=== PATIENT | female | born 1945 | race Caucasian/White ===

== ENCOUNTER 2019-10-24 11:01 | Outpatient (CLI) | payer MEDICARE, SELFPAY ==
--- NOTE | 2019-10-24 | XR_ITS ---
WS: [id number] RIGHT HIP HISTORY: HIP PAIN ACUTE RIGHT COMPARISON: 11/04/2013 Right hip: No acute fracture or dislocation. Mild narrowing of the hip joint with sclerosis and osteo phytes along the acetabulum. Mild sclerosis along the SI joint. XR/XR hip RT 2-3V wo/w pel* [id number] IMPRESSION: 1. No hip fracture. 2. Mild RIGHT hip joint arthritis.
== END 2019-10-24 11:02 | disposition home or self-care (01) ==
LOC: RADOUTREAD 10-26 12:41
PROVIDERS: Family Provider Family Medicine; PCP Family Medicine; Visit Provider Nurse Practitioner Family
DX: Z01.89 Encounter for other specified special examinations (principal)

== ENCOUNTER 2019-12-12 11:22 | Emergency (ER) | payer MEDICARE, SELFPAY ==
[2019-12-12 11:23] VITALS: BP 105/54; PULSE 49; RESP 16; TEMP 36.6; O2SAT 92; BMI 31.1
--- NOTE | 2019-12-12 11:26 | W.ED.GENADLT ---
HPI - General Adult General: Chief complaint: Chest Pain Stated complaint: CHEST PAIN Time Seen by Provider: 12/12/19 11:25 History of Present Illness: HPI narrative: 74-year-old female who presents to the emergency room with complaint of left hand. Has recently started on a new antidepressant medication which is in the case of his starting medication with some discomfort. Initially beginning she will came in with the next day had an episode has not had any since then. She denies nausea vomiting or diaphoresis associated with this. Onset (ago): day(s) (1) Location: chest Radiation: non-radiation Severity: mild Pain Consistency: intermittent Relieving factors: none Exacerbating factors: eating Associated symptoms: Reports chest pain; Deny dyspnea, malaise, nausea, rash or vomiting Review of Systems Const: Denies: fever, chills, body aches, change in appetite, fatigue or malaise ENMT: Denies: throat pain, ear pain, nasal discharge or nasal congestion Card: Reports: chest pain; Denies: edema, shortness of breath on exertion or shortness of breath when lying down Resp: Denies: shortness of breath, productive cough or non-productive cough GI: Denies: abdominal pain, nausea, vomiting, vomiting blood, coffee grounds in vomit, diarrhea, constipation, bloating, blood in stool or black tarry stool : Denies: flank pain, difficulty urinating, painful urination, urinary frequency or urinary urgency Skin/Breast: Denies: rash or itching [facility] PFSH: Medical History (Updated 12/12/19 @ 13:57 by Bruce Londono DO) Acute depression Alzheimer disease B12 deficiency Breast cancer CHF (congestive heart failure) COPD (chronic obstructive pulmonary disease) GERD (gastroesophageal reflux disease) HTN (hypertension) Hyperlipidemia IBS (irritable bowel syndrome) Muscle spasm Rheumatoid arthritis Seasonal allergic rhinitis Tachycardia Surgical History (Updated 12/10/19 @ 12:09 by Viri Echavarria MD) H/O neck surgery H/O shoulder surgery H/O wrist surgery H/O: knee surgery History of back surgery History of cholecystectomy History of ear surgery History of hysterectomy History of lumpectomy of right breast Social History Smoking and tobacco status: former smoker Quit status (tobacco): has quit using tobacco Year quit tobacco: 1996 - 1PPD x 40 Years Alcohol intake: never Lives independently: Yes Household members: spouse Marital status: Current occupational status: retired History of recent travel: No Current gender identity: Female Physical Exam Const: COMMON NORMALS: no apparent distress GENERAL APPEARANCE: cooperative and comfortable ORIENTATION/CONSCIOUSNESS: Yes awake, Yes oriented to person, Yes oriented to place and Yes oriented to time HENMT: COMMON NORMALS: normocephalic, head/scalp atraumatic, hearing grossly normal bilaterally, external ears normal, EAC's normal, TM's normal bilaterally, nasal mucous membranes and turbinates normal, moist oral mucous membranes and oropharynx normal HEAD & SCALP: normocephalic and atraumatic NOSE: nasal mucous membranes and turbinates normal EXTERNAL EAR: Yes external ears normal EXTERNAL AUDITORY CANAL: EAC's normal TYMPANIC MEMBRANE: TM's normal bilaterally Eye: COMMON NORMALS: PERRL, EOMs intact bilaterally, conjunctivae normal and no scleral icterus CONJUNCTIVA: Yes conjunctivae normal PUPIL: Yes PERRL Neck/C-Spine: COMMON NORMALS: full ROM, no lymphadenopathy, supple and no JVD Lymph: LYMPHATIC: no lymphadenopathy noted and no lymphedema noted Resp: COMMON NORMALS: normal respiratory effort, no retractions, no use of accessory muscles and clear to auscultation bilaterally AUSCULTATION: clear to auscultation bilaterally Cardio: COMMON NORMALS: no JVD, regular rate, regular rhythm and no murmurs RATE: regular rate RHYTHM: regular rhythm GI: COMMON NORMALS: soft to palpation and no hepatosplenomegaly AUSCULTATION: Yes normoactive bowel sounds PALPATION: Yes soft, No tender, No guarding and Yes no hepatosplenomegaly Extremity: COMMON NORMALS: normal to inspection, normal capillary refill, no clubbing, cyanosis or edema, no calf tenderness and no pedal edema Neuro: SENSORIUM/ORIENTATION: Yes oriented to person, Yes oriented to place and Yes oriented to time Skin: COMMON NORMALS: no rashes or lesions noted GENERAL SKIN EXAM: no rashes or lesions noted Course Vital Signs: Vital signs: Vital Signs Temperature 97.9 F 12/12/19 11:23 Pulse Rate 56 L 12/12/19 14:32 Respiratory Rate 16 12/12/19 14:32 Blood Pressure 143/64 12/12/19 14:32 Pulse Oximetry 96 12/12/19 14:32 MDM - General Adult MDM Narrative: Medical decision making narrative: Enzyme testing negative x2. Will discharge patient home with stopping the Trelegy. We will set her up for an outpatient stress test. Start aspirin 81 mg daily if has recurrence of symptoms recheck. Lab Data: Labs: Lab Results 12/12/19 12/12/19 12/12/19 Range/Units 10:45 10:45 10:45 WBC 5.5 (4.0-10.0) 10^3/ uL RBC 4.03 L (4.1-5.3) 10^6/u L Hgb 11.6 (11.5-15.3) g/dL Hct 39.1 (37.0-47.0) % MCV 97.0 (81-99) fL MCH 28.8 (28.0-34.0) pg MCHC 29.7 L (30.0-36.0) g/dL RDW 13.0 (12.1-15.1) % Plt Count 203 (130-400) 10^3/c mm MPV 9.6 (7.4-10.4) fL Neut % (Auto) 63.2 % Lymph % (Auto) 14.4 % [place] % (Auto) 15.0 % Eos % (Auto) 5.5 % Baso % (Auto) 1.5 % Neut # (Auto) 3.5 (1.8-7.7) 10^3/u L Lymph # (Auto) 0.8 (0.8-4.8) 10^3/u L [place] # (Auto) 0.8 (0.2-0.9) 10^3/u L Eos # (Auto) 0.3 (0.0-0.8) 10^3/u L Baso # (Auto) 0.1 (0.0-0.1) 10^3/u L Nucleated RBC % (a uto) 0 % Nucleated RBCs # 0.0 /100WBC Sodium 141 (136-145) mmol/L Potassium 4.8 (3.5-5.1) mmol/L Chloride 98 (98-107) mmol/L Carbon Dioxide 31 H (22-29) mmol/L Anion Gap 16.8 (5-19) BUN 34 H (8-23) mg/dL Creatinine 1.4 H (0.5-0.9) mg/dL Glucose 98 (65-115) mg/dL Calculated Osmolal ity 289 (285-295) mOsm/k g Calcium 9.7 (8.5-10.5) mg/dL Total Bilirubin 0.4 (0.15-1.2) mg/dL AST 22 (0-32) U/L ALT 10 (0-33) U/L Alkaline Phosphata se 88 (35-105) IU/L Troponin T Baselin e 26 H (0-10) ng/mL Troponin T 120 Min [place] (0-10) ng/mL Delta Troponin T (0-10) ABS# Total Protein 6.0 L (6.6-8.7) g/dL Albumin 4.1 (3.5-5.2) g/dL Globulin 1.9 (1.3-4.6) g/dL 12/12/19 Range/Units 12:42 WBC (4.0-10.0) 10^3/ uL RBC (4.1-5.3) 10^6/u L Hgb (11.5-15.3) g/dL Hct (37.0-47.0) % MCV (81-99) fL MCH (28.0-34.0) pg MCHC (30.0-36.0) g/dL RDW (12.1-15.1) % Plt Count (130-400) 10^3/c mm MPV (7.4-10.4) fL Neut % (Auto) % Lymph % (Auto) % [place] % (Auto) % Eos % (Auto) % Baso % (Auto) % Neut # (Auto) (1.8-7.7) 10^3/u L Lymph # (Auto) (0.8-4.8) 10^3/u L [place] # (Auto) (0.2-0.9) 10^3/u L Eos # (Auto) (0.0-0.8) 10^3/u L Baso # (Auto) (0.0-0.1) 10^3/u L Nucleated RBC % (a uto) % Nucleated RBCs # /100WBC Sodium (136-145) mmol/L Potassium (3.5-5.1) mmol/L Chloride (98-107) mmol/L Carbon Dioxide (22-29) mmol/L Anion Gap (5-19) BUN (8-23) mg/dL Creatinine (0.5-0.9) mg/dL Glucose (65-115) mg/dL Calculated Osmolal ity (285-295) mOsm/k g Calcium (8.5-10.5) mg/dL Total Bilirubin (0.15-1.2) mg/dL AST (0-32) U/L ALT (0-33) U/L Alkaline Phosphata se (35-105) IU/L Troponin T Baselin e (0-10) ng/mL Troponin T 120 Min [place] 24.46 H (0-10) ng/mL Delta Troponin T -1.54 L (0-10) ABS# Total Protein (6.6-8.7) g/dL Albumin (3.5-5.2) g/dL Globulin (1.3-4.6) g/dL Discharge Plan Discharge Patient Disposition: Home, Self-Care Clinical Impression: Atypical chest pain Condition: Stable Prescriptions: No Action gabapentin 300 mg capsule 300 mg PO TID RF: 0 tizanidine 4 mg capsule 4 mg PO BEDTIME PRN (Reason: Muscle Pain) RF: 0 rosuvastatin [Crestor] 10 mg tablet 10 mg PO ONCE RF: 0 donepezil 10 mg tablet 10 mg PO DAILY RF: 0 potassium chloride [Klor-Con M20] 20 mEq tablet,ER particles/crystals 20 meq PO DAILY RF: 0 citalopram 20 mg tablet 20 mg PO DAILY RF: 0 lisinopril 10 mg tablet 10 mg PO DAILY RF: 0 furosemide 40 mg tablet 40 mg PO QAM RF: 0 ferrous sulfate 324 mg (65 mg iron) tablet,delayed release (DR/EC) 324 mg PO DAILY RF: 0 pantoprazole 40 mg tablet,delayed release (DR/EC) 40 mg PO BID RF: 0 dicyclomine 20 mg tablet 20 mg PO BID RF: 0 mecobalamin (vitamin B12) 1,000 mcg tablet,chewable 1,000 mcg PO DAILY RF: 0 albuterol sulfate [ProAir HFA] 90 mcg/actuation HFA aerosol inhaler 2 puff INHALATION Q6H PRN (Reason: Shortness Of Breath) RF: 0 aspirin [Adult Aspirin Regimen] 81 mg tablet,delayed release (DR/EC) 81 mg PO DAILY RF: 0 magnesium oxide 500 mg capsule 500 mg PO DAILY RF: 0 fluticasone propionate [Flonase Allergy Relief] 50 mcg/actuation spray,suspension 1 spray INTRANASAL BID RF: 0 albuterol sulfate 2.5 mg /3 mL (0.083 %) solution for nebulization 2.5 mg INHALATION BID RF: 0 Trelegy Ellipta 100-62.5-25 mcg blister with device 1 inh INHALATION Q24H 90 Days Qty: 60 RF: 3 Discharge Orders: Discharge Order (Routine); Ordered 12/12/19 Ordered By: Bruce Londono Referrals: Zhang Gamboa MD [Primary Care Provider] - Discharge Diet: Usual diet Discharge Activity: Limit activity as instructed Activity Restrictions/Additional Instructions: Case management will call to set up a cardiac stress test Discharge Date/Time: 12/12/19 14:35 Coding Level of Care Code ED 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
--- NOTE | 2019-12-12 11:36 | XRR_ITS ---
PROCEDURE INFORMATION: Exam: XR Chest, 1 View Exam date and time: 12/12/2019 12:03 PM Age: 74 years old Clinical indication: Cough and dyspnea; Additional info: Dyspnea/cough TECHNIQUE: Imaging protocol: XR of the chest Views: 1 view. COMPARISON: SD Chest 1 [place] [id number] 07/13/2018 8:02 AM FINDINGS: Heart size within normal limits. Mild bibasilar atelectasis and/or consolidation, increased from prior study. Pulmonary vasculature within normal limits. No visible pneumothorax or pleural effusion. XR/XR chest 1V portable [id number] IMPRESSION: 1. Mild bibasilar atelectasis and/or consolidation, increased from prior study.
[2019-12-12 12:08] LABS: Basophils # 0.1 10^3/uL (0.0-0.1); Basophils % 1.5 %; Eosinophils # 0.3 10^3/uL (0.0-0.8); Eosinophils % 5.5 %; Hematocrit 39.1 % (37.0-47.0); Hemoglobin 11.6 g/dL (11.5-15.3); Lymphocytes # 0.8 10^3/uL (0.8-4.8); Lymphocytes % 14.4 %; Mean Corpuscular HGB Conc 29.7 g/dL (30.0-36.0); Mean Corpuscular Hemoglobin 28.8 pg (28.0-34.0); Mean Platelet Volume 9.6 fL (7.4-10.4); Monocytes # 0.8 10^3/uL (0.2-0.9); Neutrophils # 3.5 10^3/uL (1.8-7.7); Neutrophils % 63.2 %; Nucleated Red Blood Cells % 0 %; Platelet Count 203 10^3/cmm (130-400); Red Blood Count 4.03 10^6/uL (4.1-5.3); White Blood Count 5.5 10^3/uL (4.0-10.0)
[2019-12-12 12:28] LABS: Alanine Aminotransferase 10 U/L (0-33); Albumin Level 4.1 g/dL (3.5-5.2); Alkaline Phosphatase 88 IU/L (35-105); Anion Gap 16.8 (5-19); Aspartate Amino Transferase 22 U/L (0-32); Blood Urea Nitrogen 34 mg/dL (8-23); Calcium 9.7 mg/dL (8.5-10.5); Carbon Dioxide 31 mmol/L (22-29); Chloride 98 mmol/L (98-107); Globulin 1.9 g/dL (1.3-4.6); Glucose 98 mg/dL (65-115); Osmolality Calculated 289 mOsm/kg (285-295); Potassium 4.8 mmol/L (3.5-5.1); Sodium 141 mmol/L (136-145); Total Bilirubin 0.4 mg/dL (0.15-1.2)
[2019-12-12 12:30] LABS: Troponin(5th) Baseline 26 ng/mL (0-10)
[2019-12-12 13:10] LABS: Troponin 5 2HR 24.46 ng/mL (0-10)
[2019-12-12 13:26] LABS: Troponin 5 2HR Delta -1.54 ABS# (0-10)
[2019-12-12 14:32] VITALS: BP 143/64; PULSE 56; RESP 16; O2SAT 96
--- NOTE | 2019-12-16 15:38 | DCPLANNER ---
public relations manager had message to schedule an outpatient stress test for patient. public relations manager got order signed for outpatient stress test, faxed order to centralized scheduling. public relations manager will call for appointment information.
--- NOTE | 2019-12-17 13:52 | DCPLANNER ---
Out patient stress test for patient was cancelled.
== END 2019-12-12 14:35 | disposition home or self-care (01) ==
PROVIDERS: Emergency Provider Family Medicine; Family Provider Family Medicine; PCP Family Medicine
DX: R07.89 Other chest pain (principal); G30.9 Alzheimer's disease, unspecified; F02.80 Dementia in other diseases classified elsewhere, unspecified severity, without behavioral disturbance, psychotic disturbance, mood disturbance, and anxiety; I50.9 Heart failure, unspecified; J44.9 Chronic obstructive pulmonary disease, unspecified; K21.9 Gastro-esophageal reflux disease without esophagitis; I10 Essential (primary) hypertension; E78.5 Hyperlipidemia, unspecified; Z79.82 Long term (current) use of aspirin; Z87.891 Personal history of nicotine dependence
CPT/HCPCS: 12345; 36415; 71045; 80053; 84484; 85025; 99281; 99283

== ENCOUNTER 2019-12-28 11:50 | Outpatient (CLI) | payer MEDICARE, SELFPAY ==
[2019-12-28 12:47] LABS: Basophils # 0.1 10^3/uL (0.0-0.1); Basophils % 0.9 %; Eosinophils # 0.4 10^3/uL (0.0-0.8); Eosinophils % 5.3 %; Hematocrit 37.8 % (37.0-47.0); Hemoglobin 11.5 g/dL (11.5-15.3); Lymphocytes # 1.1 10^3/uL (0.8-4.8); Lymphocytes % 15.5 %; Mean Corpuscular HGB Conc 30.4 g/dL (30.0-36.0); Mean Corpuscular Hemoglobin 29.3 pg (28.0-34.0); Mean Corpuscular Volume 96.2 fL (81-99); Mean Platelet Volume 8.5 fL (7.4-10.4); Monocytes # 0.8 10^3/uL (0.2-0.9); Monocytes % 10.8 %; Neutrophils # 4.6 10^3/uL (1.8-7.7); Neutrophils % 66.6 %; Nucleated Red Blood Cells % 0 %; Platelet Count 369 10^3/cmm (130-400); Red Blood Count 3.93 10^6/uL (4.1-5.3); Red Cell Distribution Width 12.9 % (12.1-15.1)
[2019-12-28 13:03] LABS: Alanine Aminotransferase 8 U/L (0-33); Albumin Level 3.9 g/dL (3.5-5.2); Alkaline Phosphatase 87 IU/L (35-105); Anion Gap 14.4 (5-19); Aspartate Amino Transferase 17 U/L (0-32); Blood Urea Nitrogen 27 mg/dL (8-23); Calcium 9.7 mg/dL (8.5-10.5); Carbon Dioxide 33 mmol/L (22-29); Chloride 97 mmol/L (98-107); Globulin 3.1 g/dL (1.3-4.6); Glucose 90 mg/dL (65-115); Osmolality Calculated 287 mOsm/kg (285-295); Potassium 4.4 mmol/L (3.5-5.1); Sodium 140 mmol/L (136-145); Total Bilirubin 0.2 mg/dL (0.15-1.2)
== END 2019-12-28 11:51 | disposition home or self-care (01) ==
LOC: ONCMED 15:28
PROVIDERS: Family Provider Family Medicine; PCP Family Medicine; Visit Provider Internal Medicine Hematology & Oncology
DX: C50.411 Malignant neoplasm of upper-outer quadrant of right female breast (principal)
CPT/HCPCS: 36415; 80053; 85025

== ENCOUNTER 2019-12-31 07:01 | Outpatient (CLI) | payer MEDICARE, SELFPAY ==
--- NOTE | 2019-12-31 17:28 | ONC FU_ITS ---
Dr. Collins follow up note Patient: Maddison Jenkins Unit #: [id number]: [id number] Dicatated By: Arabella Collins M.D.Date of Visit:Dec 31, 2019 Telehealth Progress Note The patient has been informed that the visit may not be secure and acknowledged the information. I have explained the option of participating in a telephone or video visit during the [facility] public [facility] to the patient. After being given an opportunity to ask questions about and discuss this type of visit, the patient verbally consented to proceeding with the telephone/video visit. the patient understands that this service replaces an office visit and they may be billed and /or responsible for any applicable copayments History of Present Illness: Mrs. Maddison Jeknins, 74-year-old female with recent history of abnormal mammogram underwent ultrasound guided biopsy of right breast on 02/10/2019 which showed infiltrating ductal carcinoma, subsequently on 02/26/2019 she underwent excisional biopsy of right breast lesion and final pathology report showed 1 x 0.8 cm infiltrating ductal carcinoma with positive lymphovascular space invasion with clear margins and 1 sentinel lymph node was examined showed no evidence of metastatic disease, her prognostic profiling showed strongly positive ER/[place], and HER-2/raf negative by FISH. And Ki-67 was 5% e.g. favorable Oncotype DX score was 12 e.g. low, distant recurrence so this 9 year with aromatase inhibitor his about 3% and absolute chemotherapy benefits is less than 1%. So started on Arimidex 1 mg by mouth daily for 5 years on 03/03/2019 along with vitamin D/calcium supplements s/p right breast lumpectomy with sentinel lymph node, s/p postlumpectomy radiation therapy Patient denies any history of hormone supplements. Patient denies any history of bone pains, denies any history of weight loss, denies any history of nipple discharge, denies any history of nipple retraction. Evaluated via telephone, patient denies any specific complaint except pain in her right breast around scar tissue, has seen her primary care physician, for that. As per patient she used to have some discomfort, off and on, in the right breast lumpectomy scar but now is more like pain and progressive. Denies any skin changes or nipple discharge, denies any changes in postlumpectomy scar. Denies any trauma to her breast. Denies any fever or chills, denies any nausea or vomiting. Denies any new bony pains. Tolerating Arimidex/vitamin D/calcium well otherwise Medications: Aspirin 1 Tablet (of 81 mg) Oral daily, Budesonide-Formoterol Fumarate 1 puff(s) (of 160-4.5 mcg/act) Aerosol Inhalation b.i.d., Calcium + D3 1 Tablet (of 600-200 mg - Units) Oral b.i.d., Dicyclomine HCl 1 Tablet (of 20 mg) Oral four times a day, Donepezil HCl 1 Tablet (of 10 mg) Oral daily, Ferrous Sulfate 1 Tablet (of 325 (65 fe) mg) Oral daily, Gabapentin 1 Tablet (of 800 mg) Capsule Oral b.i.d., HYDROcodone-Acetaminophen 1 - 2 Tablet (of 5-325 mg) Oral q 4 hours PRN, Ipratropium [place] 1 puff(s) (of 0.02 %) Solution Inhalation four times a day PRN, Lisinopril 0.5 Tablet (of 20 mg) Oral daily, Melatonin 1 Tablet (of 3 mg) Oral at bedtime, Pantoprazole Sodium 1 Tablet (of 40 mg) Tablet, enteric coated Oral daily, Potassium Chloride ER 1 Tablet (of 20 meq) Tablet, controlled release Oral daily, Rosuvastatin Calcium 1 Tablet (of 10 mg) Oral daily, tiZANidine HCl 1 Capsule (of 4 mg) Oral four times a day PRN, traMADol HCl 1 Tablet (of 50 mg) Oral t.i.d. PRN Allergies: No Known Allergies. Review of Systems: Review of Systems is not available for this patient. Vital Signs: Vitals are not available for this patient. Performance Status: 0 - Fully active, able to carry on all predisease activities without restrictions. (ECOG) Physical Examination: Respiratory - no shortness of breath or wheezing, Cardiovascular - no palpitation or tachycardia, Breasts - complaining of right breast postlumpectomy scar discomfort/pain but no overlying skin changes or trauma to right breast, Extremities - denies any edema rash. Lab/Imaging: Most recent lab results are not available for this patient. Impression: Infiltrating ductal carcinoma of right breast status post excisional biopsy with sentinel lymph node done on 02/26/2019 next Final pathology report showed 1 x 0.8 cm mass, clear surgical margins T1b, 0/1 sentinel lymph node showed metastatic disease N0 pStage 1A ER 95%, [place] 94%, HER-2/raf negative by FISH, Ki-67 5% e.g. favorable Oncotype DX score, is 12, e.g. low risk, distance recurrence of metastases with aromatase inhibitor at 9 years is about 3% and absolute chemotherapy benefit is less than 1% , so started on Arimidex 1 mg by mouth daily for 5 years on 03/03/2019 along with vitamin D/calcium supplement s/p postlumpectomy radiation therapy to the right breast Plan: Discussed with patient via telephone regarding her labs white blood count 7 hemoglobin 11.5 hematocrit 37.8 platelets 369,000 CMP within normal limits Clinically, patient is doing well, tolerating adjuvant therapy with Arimidex/vitamin D/calcium well but with expected side effects. Now complaining of progressive discomfort/pain in right breast post lumpectomy scar but no overlying skin changes or trauma or fever or chills or nipple discharge. Patient was advised to use hot/cold compression, if no improvement, will see her back in 10 days for evaluation, may consider mammogram/sonogram. Signed By: Arabella Collins M.D. <<Signature on File>>
== END 2019-12-31 07:02 | disposition home or self-care (01) ==
LOC: ONCMED 07:02
PROVIDERS: Family Provider Family Medicine; PCP Family Medicine; Visit Provider Internal Medicine Hematology & Oncology
DX: C50.411 Malignant neoplasm of upper-outer quadrant of right female breast (principal); Z17.0 Estrogen receptor positive status [ER+]; G89.18 Other acute postprocedural pain; N64.4 Mastodynia; Z92.3 Personal history of irradiation; Z79.811 Long term (current) use of aromatase inhibitors

== ENCOUNTER 2020-01-18 10:03 | Outpatient (CLI) | payer MEDICARE, SELFPAY ==
--- NOTE | 2020-01-18 17:39 | ONC FU_ITS ---
Dr. Collins follow up note Patient: Maddison Jenkins Unit #: [id number]: [id number] Dicatated By: Arabella Collins M.D.Date of Visit:January 18, 2020 Onc Med Follow-up/Prog Note History of Present Illness: Mrs. Maddison Jenkins, 74-year-old female with recent history of abnormal mammogram underwent ultrasound guided biopsy of right breast on 02/10/2019 which showed infiltrating ductal carcinoma, subsequently on 02/26/2019 she underwent excisional biopsy of right breast lesion and final pathology report showed 1 x 0.8 cm infiltrating ductal carcinoma with positive lymphovascular space invasion with clear margins and 1 sentinel lymph node was examined showed no evidence of metastatic disease, her prognostic profiling showed strongly positive ER/[place], and HER-2/raf negative by FISH. And Ki-67 was 5% e.g. favorable Oncotype DX score was 12 e.g. low, distant recurrence so this 9 year with aromatase inhibitor his about 3% and absolute chemotherapy benefits is less than 1%. So started on Arimidex 1 mg by mouth daily for 5 years on 03/03/2019 along with vitamin D/calcium supplements s/p right breast lumpectomy with sentinel lymph node, s/p postlumpectomy radiation therapy Patient denies any history of hormone supplements. Patient denies any history of bone pains, denies any history of weight loss, denies any history of nipple discharge, denies any history of nipple retraction. Came for follow-up, complaining of progressive bilateral breast tenderness, more on the right side, since surgery. Patient denies any nipple discharge, patient denies any trauma to her breast, denies any skin rash. And also complaining of mild muscular skeleton discomfort, no night sweats. Tolerating Arimidex well otherwise Medications: Anastrozole 1 Tablet (of 1 mg) Oral daily, Aspirin 1 Tablet (of 81 mg) Oral daily, B-12 1 Tablet (of 1000 mcg) Oral daily, Budesonide-Formoterol Fumarate 1 puff(s) (of 160-4.5 mcg/act) Aerosol Inhalation b.i.d., CeleXA 1 Tablet (of 20 mg) Oral daily, Dicyclomine HCl 1 Tablet (of 20 mg) Oral four times a day, Donepezil HCl 1 Tablet (of 10 mg) Oral daily, Ferrous Sulfate 1 Tablet (of 325 (65 fe) mg) Oral daily, Furosemide 1 Tablet (of 40 mg) Oral daily, Gabapentin 1 Tablet (of 800 mg) Capsule Oral b.i.d., HYDROcodone-Acetaminophen 1 - 2 Tablet (of 5-325 mg) Oral q 4 hours PRN, Ipratropium [place] 1 puff(s) (of 0.02 %) Solution Inhalation four times a day PRN, Lisinopril 0.5 Tablet (of 20 mg) Oral daily, Magnesium 1 Tablet (of 400 mg) Oral daily, Pantoprazole Sodium 1 Tablet (of 40 mg) Tablet, enteric coated Oral daily, Potassium Chloride ER 1 Tablet (of 20 meq) Tablet, controlled release Oral daily, Rosuvastatin Calcium 1 Tablet (of 10 mg) Oral daily, tiZANidine HCl 1 Capsule (of 4 mg) Oral four times a day PRN, traMADol HCl 1 Tablet (of 50 mg) Oral t.i.d. PRN, Trelegy Ellipta Aerosol Powder, Breath Activated Inhalation Allergies: No Known Allergies. Review of Systems: Constitutional - Appetite is good and weight is stable. No fever, chills. Positive for hot flashes and night sweats. Energy level is fair, Pt fatigues easily, ENMT - Positive for sinus congestion/drainage. No mouth sores. No sore throat. Positive for difficulty swallowing, Hematologic/Lymphatic - Bruises/bleeds easily, frequent nosebleeds, Respiratory - Positive for shortness of breath. No cough. No pleuritic pain or hemoptysis, Cardiovascular - No angina pain. No palpitations, Gastrointestinal - No nausea or vomiting. No heartburn or acid reflux. Positive for diarrhea, no constipation. No blood in the stool. Positive for black stools (Pt reports she is taking iron supplements), Genitourinary (F) - No dysuria or hematuria. Positive for frequency and incontinence, Musculoskeletal - Positive for joint pain, Neurologic - Positive for headache, no dizziness. No numbness/paresthesias or other focal neurologic symptoms, Psychiatric - Positive for anxiety and insomnia. Vital Signs: Performed on January 18, 2020 10:23 Height - 63.50 in Weight - 174.4 lbs (HIGH) BSA - 1.83 sq.m BMI - 30.41 (HIGH) Temperature - 98.0 F (LOW) Pulse - 71 /min Respiration - 20 /min BP - 132/86 mm(hg) O2 Sat - 85 % (LOW) Pain - 5 Performance Status: 0 - Fully active, able to carry on all predisease activities without restrictions. (ECOG) Physical Examination: Respiratory - Lungs are clear, Cardiovascular - Regular rate and rhythm of hear, Breasts - Symmetric bilaterally without nipple discharge and no masses , but tenderness in both breasts, no overlying skin changes, status post right breast lumpectomy, Extremities - no edemaor rash. Lab/Imaging: Test performed on Dec 28, 2019 11:50 Sodium 140 mmol/L Potassium 4.4 mmol/L Chloride 97 mmol/L CO2 33 mmol/L Anion Gap 14.4 BUN 27 mg/dL Creatinine 1.1 mg/dL Cr Clearance (Est) 55.2600 mL/min Glucose 90 mg/dL Calcium 9.7 mg/dL Protein, Total 7.0 g/dL Albumin 3.9 g/dL Globulin 3.1 g/dL Bilirubin, Total 0.2 mg/dL ALT (SGPT) 8 U/L AST (SGOT) 17 U/L Alkaline Phosphatase 87 IU/L WBC 7.0 10 3/uL RBC 3.93 10 6/uL HGB 11.5 g/dL HCT 37.8 % MCV 96.2 fL MCH 29.3 pg MCHC 30.4 g/dL RDW 12.9 % Platelet Count 369 10 3/cmm MPV 8.5 fL Neutrophils 4.6 10 3/uL Lymphocytes 1.1 10 3/uL Monocytes 0.8 10 3/uL Eosinophils 0.4 10 3/uL Basophils 0.1 10 3/uL Neutrophil % 66.6 % Lymphocyte % 15.5 % Monocyte % 10.8 % Eosinophil % 5.3 % Basophils % 0.9 % Impression: Infiltrating ductal carcinoma of right breast status post excisional biopsy with sentinel lymph node done on 02/26/2019 next Final pathology report showed 1 x 0.8 cm mass, clear surgical margins T1b, 0/1 sentinel lymph node showed metastatic disease N0 pStage 1A ER 95%, [place] 94%, HER-2/raf negative by FISH, Ki-67 5% e.g. favorable Oncotype DX score, is 12, e.g. low risk, distance recurrence of metastases with aromatase inhibitor at 9 years is about 3% and absolute chemotherapy benefit is less than 1% , so started on Arimidex 1 mg by mouth daily for 5 years on 03/03/2019 along with vitamin D/calcium supplement s/p postlumpectomy radiation therapy to the right breast Plan: Discussed with patient regarding her concerns about persistent/progressive bilateral breast tenderness, etiology unclear but most likely due to hormonal withdrawals due to aromatase inhibitor. As on exam there is a no nipple discharge no overlying skin changes no discrete mass palpable. At this point we will hold her Arimidex for one month and then she will return to clinic in one month for evaluation and if there is a no improvement then will consider bilateral sonogram of breast. Signed By: Arabella Collins M.D. <<Signature on File>>
== END 2020-01-18 10:04 | disposition home or self-care (01) ==
LOC: ONCMED 10:08
PROVIDERS: PCP Family Medicine; Visit Provider Internal Medicine Hematology & Oncology
DX: C50.411 Malignant neoplasm of upper-outer quadrant of right female breast (principal); Z17.0 Estrogen receptor positive status [ER+]; N64.4 Mastodynia; Z79.811 Long term (current) use of aromatase inhibitors; Z92.3 Personal history of irradiation
CPT/HCPCS: 99214

== ENCOUNTER 2020-02-02 10:28 | Outpatient (CLI) | payer MEDICARE, SELFPAY ==
[2020-02-02 11:04] LABS: ABG PCO2 53.3 mmHg (35-45); ABG PH Result 7.39 (7.35-7.45); Arterial Blood Gas Hematocrit 34.8 % (37-47); Base Excess ABG 5.8 mmol/L (-2.0-2.0); Blood Gas Allen Test Pos; Blood Gas Sample Site Radial, right; Blood Gas Sample Type Arterial; Oxygen Device NC; PO2 ABG 77.9 mmHg (80.0-100.0)
== END 2020-02-02 10:29 | disposition home or self-care (01) ==
LOC: LAB 10:33
PROVIDERS: PCP Family Medicine; Visit Provider Internal Medicine Critical Care Medicine
DX: J96.92 Respiratory failure, unspecified with hypercapnia (principal)
CPT/HCPCS: 36600; 82803

== ENCOUNTER 2020-02-02 12:00 | Outpatient (CLI) | payer MEDICARE, SELFPAY | END 2020-02-02 12:01 | disposition home or self-care (01) | LOC: SLEEP 02-03 15:34 | PROVIDERS: PCP Family Medicine; Visit Provider Internal Medicine Critical Care Medicine | DX: J96.92 Respiratory failure, unspecified with hypercapnia (principal) | CPT/HCPCS: 36600; 82803; 94762 ==

== ENCOUNTER 2020-02-26 08:50 | Outpatient (CLI) | payer MEDICARE, SELFPAY ==
[2020-02-26 09:50] LABS: ABG PCO2 52.5 mmHg (35-45); ABG PH Result 7.42 (7.35-7.45); Arterial Blood Gas Hematocrit 39.1 % (37-47); Base Excess ABG 7.7 mmol/L (-2.0-2.0); Blood Gas Allen Test Pos; Blood Gas Sample Site Brachial, right; Blood Gas Sample Type Arterial; HCO3 ABG 33.7 mmol/L (22-26); Oxygen Device NC; PO2 ABG 52.5 mmHg (80.0-100.0)
--- NOTE | 2020-02-26 12:36 | PFTS_ITS ---
Date of Study:02/26/20 Date of Dictation: MECHANICS: Forced vital capacity (FVC) is reduced. Forced expiratory volume in one second (FEV1) is reduced. FEV1/FVC is reduced. FLOW VOLUME LOOP: Reduced flow at all lung volumes with significant scooping. LUNG VOLUMES: Total lung capacity (TLC) is normal. Residual volume (RV) is normal. DIFFUSING CAPACITY FOR CARBON MONOXIDE: Moderate reduced. INTERPRETATION: The pulmonary function tests are consistent with moderate obstruction. There is significant postbronchodilator response. Lung volumes are normal. Gas exchange (DLCO) is moderately reduced. MTDD
== END 2020-02-26 08:51 | disposition home or self-care (01) ==
LOC: RT 08:54
PROVIDERS: PCP Family Medicine; Visit Provider Internal Medicine Critical Care Medicine
DX: J96.92 Respiratory failure, unspecified with hypercapnia (principal)
CPT/HCPCS: 36600; 82803; 94060; 94726; 94729; J7611

== ENCOUNTER 2020-03-21 06:52 | Outpatient (CLI) | payer MEDICARE, SELFPAY ==
--- NOTE | 2020-03-21 07:04 | ECG_ITS ---
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 Interpretive Statements NAME OF STUDY: LEXISCAN SESTAMIBI STRESS TEST INDICATION: Chest Pain, LEXISCAN STRESS TEST ORDERING PHYSICIAN: Caden CLINICAL INFORMATION: Chest pain INTERPRETATION: 1. The patient was brought to the laboratory where Lexiscan was infused over 20 seconds. The resting blood pressure was 131/61. Maximum blood pressure was 137/50. The resting heart rate was 52 beats per minute. The maximum heart rate is 80 beats per minute. 2. The baseline electrocardiogram reveals normal sinus rhythm and is a normal tracing 3. With Lexiscan infusion, there were no ST segment changes to suggest ischemia. 4. The patient experienced no symptoms or arrhythmias during the examination. CONCLUSION: 1. Unremarkable Lexiscan infusion. 2. Nuclear imaging to follow. Electronically Signed On 03-21-2020 17:46:34 CDT by Angel Negrete M.D. [id number]
--- NOTE | 2020-03-21 07:05 | NMCV_ITS ---
NM humera perf SPECT r/s* [id number] Maddison Jenkins Age: 74 Gender: F : 1945 Exam Date: 03/21/2020 08:09 Ordering Phys: Viri Echavarria MD Technologist: LES Saavedra Exam Location: [facility] Indications: Chest pain STRESS TEST Please see separate stress test report in [facility] for full findings IMAGE PROTOCOL Rest/Stress 1 Lexiscan Day Radiopharmaceutical Dose (mCi) Administration Site Administered by Rest: Tc-99m 10.6 IV LES Saavedra Sestamibi Stress:Tc-99m 32.3 IV LES Saavedra Sestamibi Rest: 21-Mar-2020 60 Discovery 630 Stress: 21-Mar-2020 45 Discovery 630 0.4mg Lexiscan. Supine position only as patient was unable to lay prone. SPECT RESULTS Technical Quality: Good Raw Data Analysis: Normal Image Corrections: No attenuation or motion correction applied Summed Stress Score: 4 Summed Rest Score: 13 Summed Difference Score: 0 PERFUSION FINDINGS Patchy areas of decreased tracer uptake were noted at the anterior wall, lateral wall and apical regions. No significant reversibility was noted in these regions. FUNCTIONAL RESULTS (calculated via Gated SPECT) Stress Image LV EF (%): 71 Stress EDV (mL):89 TID: 0.97 Stress ESV (mL):26 FUNCTIONAL FINDINGS: Segmental wall motion analysis revealing no gross wall motion normalities. IMPRESSIONS 1. Myocardial perfusion imaging revealing patchy areas of persistent decreased tracer uptake in the apical anterior, lateral and LV apex, suggestive of myocardial scarring versus attenuation artifact. 2. Segmental wall motion analysis revealing no gross wall motion normalities 3. LV ejection fraction was estimated to be 71%. 4. Normal LV volume. No significant coronary ischemia, based on the above findings Dr Lacy Santos MD FACC (Electronically Signed) Final Date: 21 March 2020 11:26 S
[2020-03-21 07:22] VITALS: BMI 31.4
[2020-03-21] MEDS: regadenoson 0.4 Mg/5 ml Syringe IVP (08:52)
[2020-03-21] MEDS: ondansetron 2 mg/ML SDV 2 mL 4 MG IVP (09:02)
[2020-03-21 09:12] VITALS: BP 132/53; PULSE 64
== END 2020-03-21 06:53 | disposition home or self-care (01) ==
PROVIDERS: PCP Family Medicine; Visit Provider Internal Medicine Critical Care Medicine
DX: R07.9 Chest pain, unspecified (principal)
CPT/HCPCS: 78452; 93017; 96374; 96375; A9500; J2405; J2785

== ENCOUNTER 2020-03-25 08:16 | Outpatient (CLI) | payer MEDICARE, SELFPAY ==
--- NOTE | 2020-03-25 08:45 | USCV_ITS ---
Maddison Jenkisn Age: 74 Gender: F : 1945 Exam Date: 03/25/2020 08:37 Ordering Phys: Viri Echavarria MD Technologist: Sixto Moscoso [place] [facility] [place]: chest pain BP: / HR: 56 Rhythm: Sinus Technical Quality: Good MEASUREMENTS (Male / Female) Normal Values 2D ECHO LV Diastolic Diameter PLAX 4.8 cm 4.2 - 5.9 / 3.9 - 5.3 cm LV Systolic Diameter PLAX 3.5 cm IVS Diastolic Thickness 1.1 cm 0.6 - 1.0 / 0.6 - 0.9 cm IVS Systolic Thickness 1.3 cm LVPW Diastolic Thickness 1.2 cm 0.6 - 1.0 / 0.6 - 0.9 cm LVPW Systolic Thickness 1.4 cm LVOT Diameter 2.2 cm LV Ejection Fraction 2D Teich 52.0 % LV Ejection Fraction MOD 2C 55.8 % LV Ejection Fraction 2C AL 57.3 % LA Diameter 4.2 cm LA Width 3.9 cm LA Height 5.3 cm RA Width 3.5 cm RA Height 4.5 cm M-MODE LV Diastolic Diameter MM 5.6 cm 4.2 - 5.9 / 3.9 - 5.3 cm LV Systolic Diameter MM 3.8 cm LV Ejection Fraction MM Teich 59.4 % IVS Diastolic Thickness MM 1.1 cm 0.6 - 1.0 / 0.6 - 0.9 cm IVS Systolic Thickness MM 1.8 cm LVPW Diastolic Thickness MM 1.4 cm 0.6 - 1.0 / 0.6 - 0.9 cm LVPW Systolic Thickness MM 1.5 cm RV Diastolic Diameter MM 1.5 cm Aortic Annulus Diameter 3.0 cm LA Ao Ratio MM 1.4 MV E Point Septal Separation 1.7 cm DOPPLER AV Peak Velocity 137.0 cm/s LVOT Peak Velocity 104.0 cm/s AV Area Cont Eq vti 3.2 cm squared AV Area Cont Eq pk 2.9 cm squared MV Area PHT 5.0 cm squared Mitral E to A Ratio 1.0 MV E' Velocity 8.0 cm/s Mitral E to MV E' Ratio 10.3 Mitral E to LV E' Lateral Ratio 11.1 Mitral E to LV E' Septal Ratio 9.8 TR Peak Velocity 133.0 cm/s TR Peak Gradient 7.1 mmHg PV Peak Velocity 113.0 cm/s FINDINGS Left Ventricle Normal left ventricular size, systolic function and wall thickness, with no regional wall motion abnormalities. Left ventricular ejection fraction is estimated at 65%. Normal diastolic function. Right Ventricle Normal right ventricular size and systolic function. Right Atrium Normal right atrial size. Left Atrium Normal left atrial size. Mitral Valve Structurally normal mitral valve. Trace mitral valve regurgitation. Aortic Valve Structurally normal trileaflet aortic valve. No aortic valve stenosis. Trace aortic valve regurgitation. Tricuspid Valve Structurally normal tricuspid valve. Trace tricuspid valve regurgitation. Pulmonic Valve Structurally normal pulmonic valve. No pulmonary valve stenosis. Trace pulmonary valve regurgitation. Pericardium No pericardial effusion. Aorta Normal size aortic root and proximal ascending aorta. CONCLUSIONS 1. Normal left ventricular size, systolic function and wall thickness, with no regional wall motion abnormalities. Left ventricular ejection fraction is estimated at 65%. Normal diastolic function. 2. Normal right ventricular size and systolic function. 3. No significant valvular abnormality. 4. No prior similar studies to compare. Isaura Woodard MD (Electronically Signed) Final Date: 25 March 2020 14:34 S
== END 2020-03-25 08:17 | disposition home or self-care (01) ==
LOC: US 08:18
PROVIDERS: PCP Family Medicine; Visit Provider Internal Medicine Critical Care Medicine
DX: R06.02 Shortness of breath (principal); R07.9 Chest pain, unspecified
CPT/HCPCS: 93306

== ENCOUNTER → 2020-04-19 10:21 | Outpatient (BNVA) | payer MEDICARE, SELFPAY | PROVIDERS: PCP Family Medicine; Visit Provider Internal Medicine | DX: R06.02 Shortness of breath (principal); Z20.828 Contact with and (suspected) exposure to other viral communicable diseases | CPT/HCPCS: 87635 ==

== ENCOUNTER 2020-04-20 09:11 | Outpatient (CLI) | payer MEDICARE, SELFPAY ==
--- NOTE | 2020-04-20 09:30 | USCV_ITS ---
Maddison Jenkins Age: 74 Gender: F : 1945 Exam Date: 04/20/2020 09:54 Ordering Phys: Chelsey Lomeli MD ([email or web address]) Technologist: Aleks Jade Exam Location: [facility] [place] Indication: PAIN PROCEDURES: Venous duplex imaging was performed in bilateral lower extremities. The following venous structures were evaluated: common femoral vein, profunda vein, proximal portion of the greater saphenous vein, superficial femoral vein, and the popliteal vein. In addition, the posterior tibial and peroneal trunk were evaluated. Serial compression, augmentation maneuvers, and spectral Doppler flow evaluation were performed. FINDINGS: Normal 2-D Doppler and augmentation and compressibility throughout the lower extremity venous structures. Additional imaging through the proximal calf veins also reveals no thrombus. Limited evaluation of the greater saphenous vein is patent with no thrombus. CONCLUSIONS No DVT bilateral lower extremities. Dr. Margoth Esquivel DO (Electronically Signed) Final Date: 20 April 2020 11:00 S
== END 2020-04-20 09:12 | disposition home or self-care (01) ==
LOC: RAD 09:15
PROVIDERS: PCP Family Medicine; Visit Provider Internal Medicine Cardiovascular Disease
DX: M79.604 Pain in right leg (principal); M79.605 Pain in left leg
CPT/HCPCS: 93970

== ENCOUNTER 2020-04-21 08:56 | Day surgery (SDC) | payer MEDICARE, SELFPAY ==
[2020-04-19 15:08] LABS: Basophils # 0.1 10^3/uL (0.0-0.1); Basophils % 1.1 %; Eosinophils # 0.3 10^3/uL (0.0-0.8); Hematocrit 40.1 % (37.0-47.0); Lymphocytes # 0.9 10^3/uL (0.8-4.8); Mean Corpuscular HGB Conc 29.9 g/dL (30.0-36.0); Mean Corpuscular Hemoglobin 28.2 pg (28.0-34.0); Mean Corpuscular Volume 94.1 fL (81-99); Mean Platelet Volume 8.9 fL (7.4-10.4); Monocytes # 0.8 10^3/uL (0.2-0.9); Monocytes % 13.9 %; Neutrophils # 3.55 10^3/uL (1.8-7.7); Neutrophils % 62.6 %; Nucleated Red Blood Cells % 0 %; Platelet Count 276 10^3/cmm (130-400); Red Blood Count 4.26 10^6/uL (4.1-5.3); Red Cell Distribution Width 13.1 % (12.1-15.1); White Blood Count 5.7 10^3/uL (4.0-10.0)
[2020-04-19 15:23] LABS: Anion Gap 12.2 (5-19); Blood Urea Nitrogen 29 mg/dL (8-23); Calcium 9.1 mg/dL (8.5-10.5); Carbon Dioxide 33 mmol/L (22-29); Chloride 97 mmol/L (98-107); Glucose 90 mg/dL (65-115); Osmolality Calculated 283 mOsm/kg (285-295); Potassium 4.2 mmol/L (3.5-5.1); Sodium 138 mmol/L (136-145)
[2020-04-21] VITALS (10 sets, daily range): BP systolic 113–155; BP diastolic 46–69; PULSE 54–73; RESP 13–20; TEMP 36.7; O2SAT 84–99; BMI 31.6
[2020-04-21] MEDS: diphenhydrAMINE 50 mg Capsule PO (09:08)
--- NOTE | 2020-04-21 10:00 | XACV_ITS ---
Exam Room: [facility] Ht: 157 cm Wt: 78 kg BSA: 1.88 m2 Gender: Female : 1945 Any Known Allergies: No known allergies Exam Priority: Routine Procedure(s): Procedure Description: Diagnostic procedure Procedure Description: Left Heart Catheterization Procedure Description: Left ventriculography Procedure Description: Coronary Angiography Diagnostic Findings No significant disease noted in the Left Main, LAD, Circumflex, or RCA coronary arteries. Coronary angiography shows right dominance. Conclusions No significant disease noted in the Left Main, LAD, Circumflex, or RCA coronary arteries. The apex, mid posterior, mid septum, anterolateral, mid inferior gutierres are hypokinetic. All other visualized gutierres normal. Global hypokinesis. Ejection fraction of 40%. Recommendations Continue current medical management and risk factor modification. Ventriculography Ejection Fraction: 40.0 % Pressures Phase:Rest AO : 120 mmHg / 58 mmHg ( 84 mmHg ) @ 5:13:00 AM 133 mmHg / 61 mmHg ( 93 mmHg ) @ 5:14:00 AM 164 mmHg / 66 mmHg ( 106 mmHg ) @ 5:19:00 AM 171 mmHg / 45 mmHg ( 92 mmHg ) @ 5:19:00 AM LV : 167 mmHg / -6 mmHg / @ 5:18:00 AM 165 mmHg / -6 mmHg / @ 5:19:00 AM 165 mmHg / -5 mmHg / @ 5:19:00 AM Valves Phase:DefaultPhase AV : 2.0 mmHg @ 10:28:32 AM AV Mean Gradient: 0.0 mmHg @ 10:28:32 AM 0.0 mmHg @ 10:28:32 AM Clinical Evaluation EBL: 5mL-10mL Procedural Details Procedure Consent Obtained. Pre-Procedure Time Out. Identified patient by full name and date of as verbalized by the patient/guarantor. Does the consent match the physician's order: Yes. Accurate & Complete Informed Consent: Yes. Inpatient/Outpatient History & Physical on Chart: Yes. If H&P is completed, is and addenduem needed: N/A; If yes, is the addendum complete: N/A. Visualize and Verify Site with Patient/Guarantor: N/A. Relevant Radiology Images available: Yes. Pre-op teaching completed and patient verbalized understanding. The risks, benefits, and alternatives of sedation and/or procedure were discussed by physician. The patient agrees to continue. Procedure started. PERRLA. Strong, equal hand kitchen mechanic bilaterally. Lungs clear x 5 lobes. IV Site on Arrival: 20 gauge in the left anticubital. IV Fluids: 0.9% NaCl at KVO. 0 mL infused prior to gold leaf laborer. Pre Procedural Pulses: bilateral dorsalis pedis was Doppled. Pre Procedural Pulses: bilateral posterior tibial was Doppled. Pre Procedural Pulses: bilateral radial was 3+. Oxygen started at 2liters/min via nasal canula. right radial was prepped with chloroprep then draped in the usual sterile fashion. right groin was prepped with chloroprep then draped in the usual sterile fashion. Physician notified. Current diagnosis: Chest Pain. Equipment: 5F - Radial. Cardiac Cath Pack. ACIST Manifold Kit Model BT 2000. Heparinized Saline (2 units/mL), 1000 mL bag. Physician arrived. Baseline sample Acquired. HR: 49 BPM. Physician scrubbed in. Immediate Pre-Procedure Time Out. Correct Patient: Yes; Correct Procedure: Yes; Correct Site: Yes; Correct Patient Position: Yes; Correct Supplies: Yes; Dried Flammable Prep: Yes; Blood Products Available: No;. Pt family updated. Lidocaine 1% infiltrated to the right radial. Arterial access obtained. A 5 slovenian TIG catheter in over wire. Multiple views taken of left coronary artery. Catheter redirected to the RCA. Multiple views taken of right coronary artery. Catheter out. A 5 slovenian Angled Pig catheter in over wire. EDP Sample taken: LV 167/-7,29; HR: 55 BPM; SpO2: 98%. LV gram performed in NAIK @ 10 mL/second for a total of 30 mL. EDP Sample taken: LV 165/-7,29; HR: 60 BPM; SpO2: 98%. Pullback taken: LV 165/-6,29; AO 164/66(106); Mean: 0mmHg, Peak to Peak: 2mmHg, SEP: 18sec/min; HR: 60 BPM; SpO2: 97%. A TR Band was successful obtaining hemostatsis at the Right Radial artery insertion site. TR band placed. Hemostasis obtained. Post Procedure: Pulses reassessed and unchanged. PERRLA. Strong, equal hand kitchen mechanic bilaterally. No VTE prophylaxis required. Fluoro: 2:40. Contrast type used: Omnipaque 300 mgI/mL, 500 mL bottle. [id number]. Complications: none. Estimated blood loss: 5mL-10mL. Procedure completed. Medication's Wasted: Lidocaine 1% = 18 mL. Medication's Wasted: Other = versed 1 mg. Medication's Wasted: Other = fentanyl 75 mcg. Medication's Wasted: Heparin = 1000 units. Medication's Wasted: Nitro = 49.8 mg. Total IV fluids: 32.9 mL. Post-op diagnosis: nonobstructive CAD. Patient transferred by wheelchair to 1st floor. Vital chart was stopped. [facility] Clinical Fraility Score: 3: Managing Well. Supervisor Whipped Topping Indications: New Onset Angina. Chest Pain Symptom Assessment: Typical Angina Symptoms. Cardiovascular Instability: No. Site: Right Radial artery Sheath Size: 6 Fr Hemostasis Method: TR Band Hemostasis Success: Successful Procedure Medications Start: 10:09 AM Stop: 10:09 AM Medication: Nitrogylcerin Amount: 200 mcg Route: I.A. Start: 10:12 AM Stop: 10:12 AM Medication: Heparin Amount: 5000 units Route: I.V. I, the attending physician, have reviewed and verified all procedure medications. Yes, all medications given per verbal order History/Risk Factors Hypertension: Yes Dyslipidemia: Yes Peripheral Arterial Disease (PAD): No Myocardial Infarction (PR): No Obesity: No Renal Disease: No Tobacco Use: Former Prior Interventions PCI: No CABG: No Valve Surgery: No Report Signatures Finalized by:Chelsey Lomeli MD on 04/30/2020 5:10:50 PM
--- NOTE | 2020-04-21 10:29 | W.PM.OPSUD ---
Surgery/Procedure H&P Update DATE OF PROCEDURE: April 21, 2020 DATE H&P PERFORMED: 03/31/20 H&P UPDATE INFORMATION: I have reviewed H&P completed within last 30 days, I have examined patient prior to procedure, No changes to prior documentation and Changes to prior documentation as noted here PREOP DIAGNOSIS: Recurrent chest pain abnormal stress test, hypertrophic cardiomyopathy PLANNED PROCEDURE: Operation Date: 04/21/20 10:00 Proposed Procedures p Cardiac Catheterization left(Left) - Chelsey Lomeli MD PATIENT REASSESSED PRIOR TO SEDATION, WITH NO CHANGE NOTED: Yes PHYSICAL EXAM: alert, oriented x 3, clear to auscultation bilaterally and regular rate & rhythm AIRWAY EVAL/ANESTHESIA PLAN: normal airway, see other exam findings, ASA II, Risks, benefits & alternatives of sedation and/or procedure discussed and Patient agrees to continue as planned
--- NOTE | 2020-04-21 10:54 | PC.NURSE ---
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
--- NOTE | 2020-04-21 13:23 | PC.NURSE ---
Tr band removed from right wrist per protocol no hematoma noted patient tolerated well. vital signs stable throughout.
--- NOTE | 2020-04-21 13:57 | PC.NURSE ---
patient discharged home at this time discharge instructions given and explained as well as post Angio home care instructions. patient verbalized understanding. IV discontinued cath intact min bleeding noted bandage applied. patient assisted to wheel chair and accompanied to private vehicle by staff patient alert oriented and stable condition all belongings and discharge instructions in hand.
== END 2020-04-21 14:00 | disposition home or self-care (01) ==
LOC: CCL 08:56 → CSU 09:11
PROVIDERS: PCP Family Medicine; Visit Provider Internal Medicine Cardiovascular Disease
DX: R94.39 Abnormal result of other cardiovascular function study (principal); R07.9 Chest pain, unspecified; I42.2 Other hypertrophic cardiomyopathy; I10 Essential (primary) hypertension; E78.5 Hyperlipidemia, unspecified; Z87.891 Personal history of nicotine dependence
CPT/HCPCS: 12345; 36415; 80048; 85025; 85610; 93452; C1769; C1887; C1894; J1644; J2250; J3010; J3490; J7030; Q0163; Q9967

== ENCOUNTER 2020-04-25 06:00 | Outpatient (RCR) | payer MEDICARE, SELFPAY | END 2020-05-02 23:59 | disposition home or self-care (01) | LOC: SOT 06:00 | PROVIDERS: PCP Family Medicine; Referring Provider Family Medicine; Visit Provider Family Medicine | DX: G35 Multiple sclerosis (principal); Z74.09 Other reduced mobility | CPT/HCPCS: 97166; 97542 ==

== ENCOUNTER 2020-05-11 07:53 | Outpatient (CLI) | payer MEDICARE, SELFPAY ==
--- NOTE | 2020-05-11 08:11 | CT_ITS ---
WS: [id number] CT LUMBAR SPINE, noncontrast. HISTORY: LOW BACK PAIN, WORSENING BONE/BLADDER INCONTINENCE TECHNIQUE: Contiguous 2.5 mm axial imaging are performed. Sagittal and coronal reformats are submitte d and reviewed. All CT scans at [facility] use at least one of these dose optimization te chniques: automated exposure control; mA and/or kV adjustment per patient size (includes targeted exa ms where dose is matched to clinical indication); or iterative reconstruction. IV contrast: None DLP: 1904.81 mGycm COMPARISON: No similar studies. Straightening of the normal lumbar lordosis. Severe osteopenia. Prior posterior lumbar fusion extends from L2 through L4. No lucency around the hardware or fractures. Extensive bone grafting along the f acet joints is diffuse. There is significant artifact from the hardware. Degenerative disc disease an d disc space narrowing. No fractures are ill-defined. L1-2: Osteophytic ridging and disc bulging. Osteophytes encroach upon the thecal sac causing mild reji tral and LEFT subarticular recess narrowing. L2-3: Large posterior laminectomy defect. No stenosis. L3-4: Large posterior laminectomy defect. No significant stenosis. L4-5: Large posterior laminectomy defect. Mild facet joint arthritis with minimal encroachment upon t he foramen with no significant stenosis. L5-S1: LEFT hemilaminectomy defect. Osteophytic ridging without a focal protrusion. There is signific ant fusion across the facet joints and posteriorly across the midline. No significant stenosis. Moderate atherosclerosis aorta with no aneurysm. Multiple calcifications in the LEFT renal pelvis wit h no obstruction. Mild narrowing of the SI joints. Osteopenia. CT/CT lumbar spine wo con* [id number] IMPRESSION: 1. Severe osteopenia. 2. Prior posterior lumbar fusion from L2 to L4 with no complications. Extensiv e fusion across the facet joints and along the prior bone grafting. 3. Large posterior laminectomy defects from L2-3 through L5-S1. 4. Mild central and LEFT subarticular recess stenosis at L1-2.
--- NOTE | 2020-05-11 08:21 | XR_ITS ---
WS: [id number] RIGHT FOOT: 3 VIEW(S) TECHNIQUE: AP, oblique and lateral. HISTORY: RIGHT FOOT PAIN COMPARISON: None available. No acute fracture or dislocation. Normal tarsal/metatarsal alignment. Minimal degenerative changes in the midfoot. Small calcaneal spur. Mild osteopenia. XR/XR foot RT min 3V* [id number] IMPRESSION: Small calcaneal spur and osteopenia.
== END 2020-05-11 07:54 | disposition home or self-care (01) ==
PROVIDERS: Family Provider Family Medicine; PCP Family Medicine; Visit Provider Family Medicine
DX: M54.5 Low back pain (principal); R32 Unspecified urinary incontinence; M85.88 Other specified disorders of bone density and structure, other site; M43.26 Fusion of spine, lumbar region; M96.1 Postlaminectomy syndrome, not elsewhere classified; M48.061 Spinal stenosis, lumbar region without neurogenic claudication; M77.31 Calcaneal spur, right foot; M85.871 Other specified disorders of bone density and structure, right ankle and foot
CPT/HCPCS: 72131; 73630

== ENCOUNTER 2020-06-03 08:45 | Inpatient (IN) | payer MEDICARE, SELFPAY ==
[2020-06-03] VITALS (12 sets, daily range): BP systolic 105–156; BP diastolic 56–97; PULSE 59–113; RESP 17–21; TEMP 36.4–36.7; O2SAT 92–100; BMI 30.2
--- NOTE | 2020-06-03 09:07 | ECG_ITS ---
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 Measurements Intervals [place] Rate: 62 P: 15 ID: [id number] QRS: 59 QRSD: 107 T: 1 QT: 427 QTc: 435 Interpretive Statements SINUS RHYTHM LOW QRS VOLTAGE IN EXTREMITY LEADS [QRS DEFLECTION < 0.5 mV IN LIMB LEADS] Compared to ECG 07/13/2018 07:53:54 Sinus bradycardia no longer present Electronically Signed On 06-03-2020 20:37:32 CDT by Chelsey Lomeli M.D. [id number]
--- NOTE | 2020-06-03 09:07 | CT_ITS ---
WS: [id number] CT HEAD TECHNIQUE: Noncontrast CT of the head obtained from the skullbase to the vertex. CLINICAL INFORMATION: syncope, fall COMPARISON: MRI head 6 19,015 DLP: 807.[address] scans at [facility] use at least one of these dose optimization techniques: automat ed exposure control; mA and/or kV adjustment per patient size (includes targeted exams where dose is matched to clinical indication); or iterative reconstruction. FINDINGS: No evidence of intracranial hemorrhage or mass effect. Ventricular system and basal cisterns are hermosillo nt. Moderate small vessel changes with mild parenchymal volume loss. Benign basal ganglia calcificati ons. No extra-axial fluid collections. No evidence of mass or mass effect. Normal valencia-white differen tiation. Paranasal sinuses and mastoid air cells are well aerated. .Normal visualized soft tissues. CT/CT head wo con* [id number] IMPRESSION: 1. No evidence of intracranial hemorrhage or mass effect. 2. Moderate small vessel changes. Mild parenchymal volume loss. 3. No acute intracranial findings. Attempted Junie Brennan MD at 06/03/2020 9:28 AM.
--- NOTE | 2020-06-03 09:07 | XR_ITS ---
WS: [id number] Portable AP upright chest, 06/03/2020 Clinical Data: dyspnea Comparison: Portable chest, 12/12/2019. Findings: There is a minimal patchy opacity in the right lower lobe which could represent atelectasis and/or pneumonia. No nodules, masses or effusions are seen. The heart is normal. The pulmonary vascu larity is not increased. No pneumothorax is seen. The aortic arch and descending aorta show mild tor tuosity and calcification. The patient's had an anterior cervical disc fusion. Monitor leads are on t he chest wall. XR/XR chest 1V portable [id number] Impression: 1. Mild patchy opacity in right lower lobe and recommend repeat chest x-ray in one to 2 days. 2. Atherosclerosis.
[2020-06-03 09:56] LABS: Basophils # 0.1 10^3/uL (0.0-0.1); Basophils % 0.9 %; Eosinophils # 0.3 10^3/uL (0.0-0.8); Eosinophils % 3.8 %; Hematocrit 40.1 % (37.0-47.0); Hemoglobin 12.2 g/dL (11.5-15.3); Lymphocytes # 0.8 10^3/uL (0.8-4.8); Mean Corpuscular HGB Conc 30.4 g/dL (30.0-36.0); Mean Corpuscular Hemoglobin 28.8 pg (28.0-34.0); Mean Corpuscular Volume 94.8 fL (81-99); Mean Platelet Volume 8.9 fL (7.4-10.4); Monocytes # 0.9 10^3/uL (0.2-0.9); Monocytes % 12.4 %; Neutrophils # 4.93 10^3/uL (1.8-7.7); Neutrophils % 71.6 %; Nucleated Red Blood Cells % 0 %; Platelet Count 215 10^3/cmm (130-400); Red Blood Count 4.23 10^6/uL (4.1-5.3); Red Cell Distribution Width 13.5 % (12.1-15.1); White Blood Count 6.9 10^3/uL (4.0-10.0)
[2020-06-03 10:15] LABS: Alanine Aminotransferase 19 U/L (0-33); Alkaline Phosphatase 91 IU/L (35-105); Aspartate Amino Transferase 43 U/L (0-32); Blood Urea Nitrogen 41 mg/dL (8-23); Calcium 9.6 mg/dL (8.5-10.5); Carbon Dioxide 30 mmol/L (22-29); Chloride 99 mmol/L (98-107); Globulin 2.6 g/dL (1.3-4.6); Glucose 103 mg/dL (65-115); Magnesium 2.4 mg/dL (1.7-2.3); Osmolality Calculated 294 mOsm/kg (285-295); Sodium 137 mmol/L (136-145); Total Bilirubin 0.3 mg/dL (0.15-1.2); Total Protein 6.6 g/dL (6.6-8.7)
[2020-06-03 10:18] LABS: D Dimer 11.41 ug/mIFEU (0-0.59)
--- NOTE | 2020-06-03 10:30 | NM_ITS ---
WS: [id number] NUCLEAR MEDICINE LUNG VENTILATION AND PERFUSION CLINICAL INFORMATION: SOB, syncope, elevated d-dimer TECHNIQUE: Ventilation/perfusion lung scan with 5.4 mCi technetium 99m DTPA. COMPARISON: None. FINDINGS: Chest radiograph June 03, 2020 reviewed. Numerous matched peripheral ventilation/perfusion defects . Heterogeneous radiotracer uptake on the ventilatory images some of which is due to emphysematous ch merle. No mismatched ventilation/perfusion defects. Findings are intermediate probability for pulmonar y embolus. Recommend further evaluation with CTA chest if renal function allows. NM/NM pul vent and perfus* [id number] IMPRESSION: 1. Intermediate probability for pulmonary embolus. 2. Recommend further evaluation with CTA chest when renal function allows. Notified Junie Brennan MD at 06/03/2020 12:15 PM.
--- NOTE | 2020-06-03 11:12 | PC.NURSE ---
pt off unit
--- NOTE | 2020-06-03 12:05 | ED_ITS ---
HPI - Fall General: Chief Complaint: Fall Stated Complaint: FALL,LOC Time Seen by Provider: 06/03/20 08:51 History of Present Illness: HPI Narrative: This patient is a 74-year-old female who presents with a syncopal episode. She reports that she has been having episodes like this for a couple of months off and on. What she described this morning was that she had gotten up and felt short of breath as soon as she started moving around. She describes it as the feeling of rushing around and getting out of air. She was doing her normal morning routine and was walking down the beck to the bathroom when she suddenly passed out. She has never passed out with these episodes before. She said they usually last a few minutes but sometimes last all day. She has told her doctor about them but no testing has been done. When I reviewed her prior records I see that she has had some recent testing including an ultrasound of her right leg. Her witnessed her fall. He said when he got to her she was still unconscious and was shaking a bit. She says was out for about a minute and a half by his estimation. When she woke up she knew where she was and what seem to be going on. She hit the right side of her face a little bit with the fall but denies any real injuries from the fall. MD complaint: fall Onset (ago): unknown (Just prior to arrival) Fall from: standing Fall witnessed: yes, by family Place fall occurred: home Loss of consciousness: Yes Length of LOC: minutes(s) (1-1/2) Prolonged down time: no Symptoms prior to fall: other (Shortness of breath) Location of injury: face Associated symptoms-after fall: Reports short of breath; Denies abdominal pain, chest pain, headache(s) or neck pain Review of Systems General: Reports: 10 or more systems reviewed and unremarkable except in HPI and below Const: Denies: fever(s), chills, fatigue or malaise Eyes: Denies: change in vision ENMT: Denies: odynophagia Card: Reports: swelling of feet/ankles; Denies: chest pain Resp: Reports: dyspnea; Denies: productive cough or non-productive cough GI: Denies: abdominal pain, nausea or vomiting : Denies: flank pain or difficulty voiding Musc: Reports: extremity pain (Cramping in her right leg); Denies: neck pain or back pain Skin/Breast: Denies: rash Neuro: Denies: headache(s), numbness in extremities or weakness in extremities Blayne/Lymph: Denies: easy bruising or easy bleeding PFSH ED PFSH: Medical History Acute depression Alzheimer disease B12 deficiency Breast cancer CHF (congestive heart failure) COPD (chronic obstructive pulmonary disease) GERD (gastroesophageal reflux disease) HTN (hypertension) Hyperlipidemia IBS (irritable bowel syndrome) Muscle spasm Rheumatoid arthritis Seasonal allergic rhinitis Tachycardia Varicose veins of left leg with edema Surgical History H/O neck surgery H/O shoulder surgery H/O wrist surgery H/O: knee surgery History of back surgery History of cholecystectomy History of ear surgery History of hysterectomy History of lumpectomy of right breast Family History Father CAD (coronary artery disease) Mother CAD (coronary artery disease) Brother CAD (coronary artery disease) Sister Cancer Other Diabetes Social History Smoking and tobacco status: former smoker Quit status (tobacco): has quit using tobacco Year quit tobacco: 1995 - PD x 40 Years Alcohol intake: never Lives independently: Yes Household members: spouse Marital status: Current occupational status: retired History of recent travel: No Current gender identity: Female Physical Exam Const: COMMON NORMALS: no acute distress, patient oriented x3, no limitations and alert GENERAL APPEARANCE: cooperative, comfortable and anxious HENMT: HEAD & SCALP: normal to inspection FACE & SINUS: normal facial exam Eye: GENERAL EYE: appearance normal, both eyes and all related structures Neck/C-Spine: COMMON NORMALS: supple, no meningeal signs and no JVD Chest: COMMONS NORMALS: normal inspection of the chest Resp: COMMON NORMALS: normal respiratory effort, No use of accessory muscles and clear to auscultation bilaterally AUSCULTATION: clear to auscultation bilaterally Cardio: COMMON NORMALS: no JVD, regular rate, regular rhythm and No murmurs present (Cardio) RATE: regular rate RHYTHM: regular rhythm GI: COMMON NORMALS: Normal to inspection, nondistended, normoactive bowel sounds present, Soft to palpation and non-tender INSPECTION: Yes normal to inspection AUSCULTATION: Yes normoactive bowel sounds PALPATION: Yes Soft to palpation Back/Pelvis: COMMON NORMALS: thoracic and lumbar spine normal to inspection Extremity: RIGHT LOWER EXTREMITY: Yes lower leg (Swelling in the right leg greater than left) Neuro: COMMON NORMALS: patient oriented x3, moves all extremities, no focal motor deficits and no sensory deficits noted SENSORIUM/ORIENTATION: Yes alert MENINGEAL SIGNS: Yes no meningeal signs Psych: COMMON NORMALS: mental status grossly normal, cooperative and normal affect Skin: COMMON NORMALS: no rashes or lesions noted and turgor normal GENERAL SKIN EXAM: no rashes or lesions noted and turgor normal Course ED course: This patient had an episode of feeling acutely short of breath and then passing out today. In December she was treated for some breast cancer and it appears that she had a lumpectomy which was thought to be curative. She does have some swelling in her right leg but she did also have a recent ultrasound that did not show any blood clots. D-dimer was markedly elevated and concern for PE is there obviously as that fits the clinical picture as well. VQ scan was ordered as her GFR is too low for IV contrast. That result is pending. Her vital signs are otherwise normal including a normal oxygen level. If the VQ scan does not show a blood clot she will need further investigation as to the cause of these episodes and this syncopal event today. Reevaluation(s): Reevaluation #1: VQ scan was intermediate probability. Dr. Goldsmith, radiology, recommended a CT scan if her creatinine improves after some hydration. I explained this to the patient and she understands the plan. She will be admitted to the hospitalist. We have opted to go ahead and start anticoagulation. Vital Signs: Vital signs: Vital Signs Temperature 97.6 F 06/03/20 09:00 Pulse Rate 113 H 06/03/20 11:10 Respiratory Rate 17 06/03/20 11:10 Blood Pressure 156/97 06/03/20 11:10 Pulse Oximetry 98 06/03/20 11:10 MDM - Fall Lab Data: Labs: Lab Results 06/03/20 06/03/20 06/03/20 Range/Units 09:50 09:50 09:50 WBC 6.9 (4.0-10.0) 10^3/ uL RBC 4.23 (4.1-5.3) 10^6/u L Hgb 12.2 (11.5-15.3) g/dL Hct 40.1 (37.0-47.0) % MCV 94.8 (81-99) fL MCH 28.8 (28.0-34.0) pg MCHC 30.4 (30.0-36.0) g/dL RDW 13.5 (12.1-15.1) % Plt Count 215 (130-400) 10^3/c mm MPV 8.9 (7.4-10.4) fL Neut % (Auto) 71.6 % Lymph % (Auto) 11.0 % Loup % (Auto) 12.4 % Eos % (Auto) 3.8 % Baso % (Auto) 0.9 % Neut # (Auto) 4.93 (1.8-7.7) 10^3/u L Lymph # (Auto) 0.8 (0.8-4.8) 10^3/u L Loup # (Auto) 0.9 (0.2-0.9) 10^3/u L Eos # (Auto) 0.3 (0.0-0.8) 10^3/u L Baso # (Auto) 0.1 (0.0-0.1) 10^3/u L Nucleated RBC % (a uto) 0 % Nucleated RBCs # 0.0 /100WBC D-Dimer 11.41 H (0-0.59) ug/mIFE U Sodium 137 (136-145) mmol/L Potassium 5.0 (3.5-5.1) mmol/L Chloride 99 (98-107) mmol/L Carbon Dioxide 30 H (22-29) mmol/L Anion Gap 13.0 (5-19) BUN 41 H (8-23) mg/dL Creatinine 1.9 H (0.5-0.9) mg/dL GFR Calculation Not Reportable Glucose 103 (65-115) mg/dL Calculated Osmolal ity 294 (285-295) mOsm/k g Calcium 9.6 (8.5-10.5) mg/dL Magnesium 2.4 H (1.7-2.3) mg/dL Total Bilirubin 0.3 (0.15-1.2) mg/dL AST 43 H (0-32) U/L ALT 19 (0-33) U/L Alkaline Phosphata se 91 (35-105) IU/L Total Protein 6.6 (6.6-8.7) g/dL Albumin 4.0 (3.5-5.2) g/dL Globulin 2.6 (1.3-4.6) g/dL Discharge Plan Discharge Patient Disposition: Placed in Observation Clinical Impression: D-dimer, elevated Syncope Qualifiers: Syncope type: unspecified Qualified Code(s): R55 - Syncope and collapse Condition: Stable Referrals: Zhang Gamboa MD [Primary Care Provider] - Coding Level of Care Code ED Track Moving Machine Operator for Chg Fwd Exam Comprehensive
[2020-06-03] MEDS: enoxaparin 80 mg/0.8 mL Syringe SUBCUT (13:30)
--- NOTE | 2020-06-03 14:51 | PM.HP ---
Providers/Chief Complaint Admitting Physician: Jamari Mercado MD Primary Care Provider: Zhang Gamboa MD Chief Complaint: FALL,LOC History of Present Illness Maddison Jenkins is a 74 year old female who presents with history of fainting episode. This occurred while she was walking, around 7:10 AM. witnessed the event, in which she fell forward abruptly. Upon awakening she had some slight shaking. Was incontinent. She reports she has had several other episodes where she almost fainted but did not. She has been dizzy for about 4 months. She has had no significant new cough, fever, history of COVID, or exposure to COVID. She states she occasionally has some chest discomfort when she breathes in and has for the last several weeks. She reports she generally has some pain all over. She denies any nausea or vomiting. She states she has been short of breath but this is really for the past 2 years. She states she has COPD and wears oxygen. Coincidently, she was not wearing oxygen when ambulating when the fainting episode occurred. No chest pain currently. In the emergency department an elevated d-dimer was noted, and VQ scan was indeterminate. A CTA was not performed as her creatinine was elevated. Review of Systems General: Reports: 10 or more systems reviewed and unremarkable except in HPI and below Const: Denies: fever(s) or chills Eyes: Denies: change in vision ENMT: Denies: throat pain Card: Reports: chest pain Resp: Reports: dyspnea and non-productive cough; Denies: productive cough GI: Denies: abdominal pain : Denies: flank pain Musc: Denies: neck pain Skin/Breast: Denies: rash Neuro: Reports: headache(s) Psych: Denies: anxiety Endo: Denies: polyuria Blayne/Lymph: Denies: easy bruising All/Imm: Denies: urticaria Medications/Allergies Home Medications Medication Instructions Recorded Confirmed Last Taken Type citalopram 20 mg tablet 20 mg PO DAILY 09/09/19 06/03/20 06/02/20 History donepezil 10 mg tablet 10 mg PO DAILY 09/09/19 06/03/20 06/02/20 History ferrous sulfate 324 mg (65 mg 324 mg PO DAILY tab 09/09/19 06/03/20 06/02/20 History iron) tablet,delayed release furosemide 40 mg tablet 40 mg PO QAM 09/09/19 06/03/20 06/02/20 History gabapentin 300 mg capsule 300 mg PO TID 09/09/19 06/03/20 06/02/20 History lisinopril 10 mg tablet 10 mg PO DAILY tab 09/09/19 06/03/20 06/02/20 History pantoprazole 40 mg tablet,delayed 40 mg PO BID tab 09/09/19 06/03/20 06/02/20 History release potassium chloride 20 mEq 20 meq PO DAILY tab 09/09/19 06/03/20 06/02/20 History tablet,extended release(part/cryst) rosuvastatin 10 mg tablet 10 mg PO ONCE 09/09/19 06/03/20 06/02/20 History tizanidine 4 mg capsule 4 mg PO BEDTIME PRN cap 09/09/19 06/03/20 06/02/20 History aspirin 81 mg tablet,delayed 81 mg PO DAILY 12/10/19 06/03/20 06/02/20 History release fluticasone propionate 50 1 spray INTRANASAL BID 12/10/19 06/03/20 06/02/20 History mcg/actuation nasal spray,suspension magnesium oxide 500 mg capsule 500 mg PO DAILY 12/10/19 06/03/20 06/02/20 History mecobalamin (vitamin B12) 1,000 1,000 mcg PO DAILY tab 12/10/19 06/03/20 06/02/20 History mcg chewable tablet albuterol sulfate 2.5 mg INHALATION BID PRN ml 03/10/20 06/03/20 06/03/20 History anastrozole 1 mg tablet 1 mg PO DAILY tab 03/31/20 06/03/20 06/02/20 History fluticasone fur. 100 mcg-umeclid 1 inh INHALATION Q24H 90 Days #60 04/28/20 06/03/20 06/02/20 Rx 62.5 mcg-vilant 25 mcg each inhalat.powder dicyclomine 20 mg PO BID 06/03/20 06/03/20 06/02/20 History Allergies Allergy/AdvReac Type Severity Reaction Status Date / Time No Known Allergies Allergy Verified 06/03/20 12:33 PFSH Acute PFSH: Medical History Acute depression Alzheimer disease B12 deficiency Breast cancer CHF (congestive heart failure) COPD (chronic obstructive pulmonary disease) GERD (gastroesophageal reflux disease) HTN (hypertension) Hyperlipidemia IBS (irritable bowel syndrome) Muscle spasm Rheumatoid arthritis Seasonal allergic rhinitis Tachycardia Varicose veins of left leg with edema Surgical History H/O neck surgery H/O shoulder surgery H/O wrist surgery H/O: knee surgery History of back surgery History of cholecystectomy History of ear surgery History of hysterectomy History of lumpectomy of right breast Family History Father CAD (coronary artery disease) Mother CAD (coronary artery disease) Brother CAD (coronary artery disease) Sister Cancer Other Diabetes Social History Smoking and tobacco status: former smoker Quit status (tobacco): has quit using tobacco Year quit tobacco: 1995 - PD x 40 Years Alcohol intake: never Lives independently: Yes Household members: spouse Marital status: Current occupational status: retired History of recent travel: No Current gender identity: Female Vitals/I&O/Wt Last Vital Signs Temp 97.7 F 06/03/20 14:44 Pulse 60 06/03/20 14:44 Resp 18 06/03/20 14:44 BP 143/77 06/03/20 14:44 Pulse Ox 95 06/03/20 13:56 Weight last 48 hrs Weight 79.832 kg Physical Exam Narrative: EXAM NARRATIVE: General exam is a white female in no apparent distress Cardiovascular regular rate and rhythm without murmur Lungs faint expiratory wheezing Abdomen is soft with positive bowel sounds no obvious organomegaly Extremities no cyanosis clubbing or edema Skin no rash Neuro no focal deficits Data : 06/03/20 09:50 06/03/20 09:50 Other data: VQ scan is indeterminate D-dimer 11.4 LFTs normal with exception of AST 43 Magnesium level was 2.4 CT had no acute changes Chest x-ray patchy opacity right lung, etiology unknown. Recommend repeat chest x-ray in future A&P Assessment and plan (1) Syncope: Etiology unknown. Could have been vasovagal. Cannot rule out arrhythmia. May have been hypoxia as she was not wearing her oxygen. Doubt seizure considering description of event. May have been related to dehydration. Observation Telemetry PT evaluation Status: Acute Qualifiers: Syncope type: unspecified Qualified Code(s): R55 - Syncope and collapse (2) Chest pain: Patient describes this is pleuritic D-dimer is elevated VQ scan indeterminate Placed on Lovenox 1 mg/kg subcutaneous every 12 hours If creatinine improves CTA tomorrow to delineate if pulmonary embolism occurred Note patient had recent echocardiogram, with EF of 65%, essentially normal 03/21 Status: Acute (3) Acute kidney injury: Hydration Check CK Check urinalysis Status: Acute Additional A&P Information Elevated magnesium. Hold her home magnesium history of dementia History of CHF, preserved EF. Compensated currently History of depression GERD Protonix. History of rheumatoid arthritis Hypertension. Holding lisinopril currently secondary to acute kidney injury. Hold Lasix as well. Other medical problems as listed in past medical history Allow natural . Discussed with patient and Lovenox will serve for DVT prophylaxis Attestations Medical Necessity Statement*: Will need less than 2 midnight stay for evaluation of syncope, possible pulmonary embolism Time Spent in Patient Care: Greater than 35 minutes Coding Level of Care Code Acute Mottle Lay Up Operator for Gus Monaco Diagnoses Syncope R55 Syncope type: unspecified Chest pain R07.9 Acute kidney injury N17.9
[2020-06-03] MEDS: sodium chloride 0.9% 1,000 ML 75 ML IV (15:30)
[2020-06-03 15:34] LABS: Thyroid Stimulating Hormone 2.15 uIU/mL (0.27-4.20)
[2020-06-03 15:49] LABS: Creatine Phosphokinase 324 U/L (26-192)
[2020-06-03] MEDS: ipratropium-albuterol 3 mL Neb INHALATION ×2 (15:57→20:34)
[2020-06-03] MEDS: pantoprazole DR 40 mg Tablet PO (17:03)
--- NOTE | 2020-06-03 18:09 | PC.NURSE ---
Shift summary Patient arrived to the floor bev 1515, she is alert and oriented to person place and time. She has remained on 3l via nc. She denies pain at this time. Telementry applied, vs wnl this shift. Fluids infusing at 100ml/hr.
[2020-06-03 18:36] LABS: Bilirubin Urine Neg (Negative); Blood Urine Neg (Negative); Glucose Urine UA Norm (Normal); Ketones Urine Negative (Negative); Leukocyte Esterase Urine Negative (Negative); Nitrate Urine Negative (Negative); Protein Urine Neg (Negative); Specific Gravity, Urine 1.008 (1.005-1.030); Urine Appearance Clear (CLEAR); Urine Color Yellow (Yellow); Urobilinogen Urine Norm (Negative); pH Urine 7 (5-7)
[2020-06-03 18:37] LABS: Add Urine Culture? No
[2020-06-03] MEDS: gabapentin 300 mg Capsule PO (21:56)
[2020-06-04] VITALS (10 sets, daily range): BP systolic 98–152; BP diastolic 58–79; PULSE 59–69; RESP 17–20; TEMP 36.4–37.1; O2SAT 92–97
[2020-06-04] MEDS: enoxaparin 100 mg/mL Syringe 80 MG SUBCUT ×2 (01:23→11:42)
[2020-06-04] MEDS: acetaminophen 325 mg Tablet 650 MG PO ×2 (01:26→17:12)
[2020-06-04] MEDS: sodium chloride 0.9% 1,000 ML 75 ML IV ×2 (04:51→13:58)
[2020-06-04 05:17] LABS: Basophils # 0.1 10^3/uL (0.0-0.1); Basophils % 1.2 %; Eosinophils # 0.3 10^3/uL (0.0-0.8); Eosinophils % 6.3 %; Hematocrit 35.4 % (37.0-47.0); Hemoglobin 10.6 g/dL (11.5-15.3); Lymphocytes # 0.9 10^3/uL (0.8-4.8); Mean Corpuscular HGB Conc 29.9 g/dL (30.0-36.0); Mean Corpuscular Hemoglobin 28.3 pg (28.0-34.0); Mean Corpuscular Volume 94.4 fL (81-99); Mean Platelet Volume 9.2 fL (7.4-10.4); Monocytes # 0.8 10^3/uL (0.2-0.9); Monocytes % 15.5 %; Neutrophils # 2.88 10^3/uL (1.8-7.7); Neutrophils % 58.8 %; Nucleated Red Blood Cells % 0 %; Platelet Count 198 10^3/cmm (130-400); Red Blood Count 3.75 10^6/uL (4.1-5.3); Red Cell Distribution Width 13.3 % (12.1-15.1); White Blood Count 4.9 10^3/uL (4.0-10.0)
[2020-06-04 05:45] LABS: Alanine Aminotransferase 14 U/L (0-33); Albumin Level 3.5 g/dL (3.5-5.2); Alkaline Phosphatase 72 IU/L (35-105); Anion Gap 11.7 (5-19); Aspartate Amino Transferase 25 U/L (0-32); Blood Urea Nitrogen 31 mg/dL (8-23); Calcium 8.5 mg/dL (8.5-10.5); Carbon Dioxide 28 mmol/L (22-29); Chloride 104 mmol/L (98-107); Globulin 1.7 g/dL (1.3-4.6); Glucose 97 mg/dL (65-115); Magnesium 2.1 mg/dL (1.7-2.3); Osmolality Calculated 294 mOsm/kg (285-295); Potassium 4.7 mmol/L (3.5-5.1); Sodium 139 mmol/L (136-145); Total Bilirubin 0.3 mg/dL (0.15-1.2); Total Protein 5.2 g/dL (6.6-8.7)
[2020-06-04 05:46] LABS: C Reactive Protein 2.6 mg/L (0.0-4.9)
[2020-06-04 05:47] LABS: Creatine Phosphokinase 173 U/L (26-192)
[2020-06-04 06:43] LABS: Erythrocyte Sedimentation Rate 15 mm/hr (0-15)
[2020-06-04] MEDS: gabapentin 300 mg Capsule PO ×2 (08:44→14:00)
[2020-06-04] MEDS: aspirin 81 mg EC Tablet PO (08:44)
[2020-06-04] MEDS: citalopram 20 mg Tablet PO (08:44)
[2020-06-04] MEDS: donepezil 5 MG Tablet 10 MG PO (08:44)
[2020-06-04] MEDS: pantoprazole DR 40 mg Tablet PO ×2 (08:44→17:10)
[2020-06-04] MEDS: anastrozole 1 mg Tablet PO (08:47)
[2020-06-04] MEDS: ipratropium-albuterol 3 mL Neb INHALATION ×2 (09:18→20:27)
--- NOTE | 2020-06-04 10:08 | CTR_ITS ---
PROCEDURE INFORMATION: Exam: CT Angiography Chest With Contrast Exam date and time: 06/04/2020 2:10 PM Age: 74 years old Clinical indication: Shortness of breath; Prior surgery; Surgery date: 6+ months; Surgery type: Breast c&l spines; Patient HX: C/O SOB w elev d-dimer and abn vq; Additional info: Elevated d dimer, abnormal vq TECHNIQUE: Imaging protocol: Computed tomographic angiography of the chest with intravenous contrast. 3D rendering (Not supervised by radiologist): MIP and/or 3D reconstructed images were created by the technologist. Radiation optimization: All CT scans at this facility use at least one of these dose optimization techniques: automated exposure control; mA and/or kV adjustment per patient size (includes targeted exams where dose is matched to clinical indication); or iterative reconstruction. Contrast material: VISI 320; Contrast volume: 95 ml; Contrast route: INTRAVENOUS (IV); COMPARISON: NM pul vent and perfus* [id number] 06/03/2020 10:30 AM RADIATION DOSE METRICS: Total DLP (mGy-cm): 574.59 FINDINGS: Pulmonary arteries: Multiple bilateral pulmonary emboli including a nonocclusive saddle embolus at the distal aspect of the left pulmonary artery extending into the 1st order branches. Aorta: Unremarkable. No aortic aneurysm. No aortic dissection. Lungs: There are centrilobular emphysematous changes in the bilateral lungs. Pleural space: Unremarkable. No pneumothorax. No pleural effusion. Heart: Multivessel atherosclerotic disease which involves the coronary arteries. Cardiomegaly. Right ventricle is enlarged compared to the left, consistent with right heart strain. Lymph nodes: Unremarkable. No enlarged lymph nodes. Gallbladder and bile ducts: The gallbladder has been removed. Kidneys and ureters: There are nonobstructing left renal calculi. Bones/joints: There are degenerative changes in the visualized spine. Anterior cervical discectomy and fusion in the lower cervical spine. Soft tissues: Unremarkable. CT/CT angio chest PE protcl [id number] IMPRESSION: 1. Multiple bilateral pulmonary emboli including a nonocclusive saddle embolus at the distal aspect of the left main pulmonary artery extending into 1st order branches. 2. Right heart strain. 3. There are centrilobular emphysematous changes in the bilateral lungs. Radiation Dose CTDIVOL = (mGy): DLP = 574.59 (mGy-cm)
--- NOTE | 2020-06-04 11:33 | PC.CHAP ---
Pastoral Care Encounter/Spiritual Assessment Type of Contact [] Declined mounted police officer visit [] Patient/Family/Request visit [] Outpatient visit [] Follow-up visit [] Physician referral [] Code/Alert [X] Routine visit [] Staff referral [] Actively dying [] Patient sleeping [] Family support [] [] Out of room [] Palliative care [] [] Receiving care in room [] Pre-surgical visit [] Trauma [] Long length of stay [] ICU visit [] Other: Relational/Emotional Strength [] Patient feels connected with others/family/visitors/staff [] Distress [] Loneliness/isolation [] Abandonment Spirituality of Patient [] Person of Deepali [] Attends Faith of their Deepali [] Believes in Prayer [] Reads Bible or Rastafari materials [] There are Spiritual issues to be addressed Civil Engineer Helper Interventions [X] Prayer [] Active listening [] Non-anxious presence [] Spiritual/emotional support [] Crisis/trauma care [] Spiritual counseling [] Bereavement support [] Provided bereavement packet [] Provided Bible/devotional materials [] Provided toy/stuffed animal, coloring book to patient or family member [] Provided Communion [] Anointing/[place] [] Salvation [] Completed spiritual assessment [] Other: Impact on Illness or Injury [] Angry [] Fearful [] Anxious [] Often cries [] Exhaustion [] Unable to work [] Unable to attend christian [] Unable to walk/stand [] Unable to read [] Unable to drive [] Unable to eat/drink [] Unable to sleep [] Unable to be with family [] Patient intubated [] Other: Summary Time spent with patient
[2020-06-04] MEDS: iodixanol 320 mg/mL 100mL Btl IV (14:31)
--- NOTE | 2020-06-04 15:22 | USCV_ITS ---
Maddison Jenkins Age: 74 Gender: F : 1945 Exam Date: 06/04/2020 16:19 Ordering Phys: Jamari Mercado MD Technologist: Jessica Hernández Exam Location: [facility] [place] Indication: PE, check for right heart strain BP: 152 / 79 HR: 59 Rhythm: Sinus Technical Quality: Fair MEASUREMENTS (Male / Female) Normal Values 2D ECHO LV Diastolic Diameter PLAX 4.5 cm 4.2 - 5.9 / 3.9 - 5.3 cm LV Systolic Diameter PLAX 3.1 cm LV Chamber Size 3.3 cm IVS Diastolic Thickness 0.8 cm 0.6 - 1.0 / 0.6 - 0.9 cm IVS Systolic Thickness 1.1 cm LVPW Diastolic Thickness 1.0 cm 0.6 - 1.0 / 0.6 - 0.9 cm LVPW Systolic Thickness 1.0 cm RV Chamber Size 2.9 cm LV Ejection Fraction 2D Teich 59.3 % LA Width 2.7 cm LA Height 4.5 cm RA Width 2.1 cm RA Height 4.9 cm M-MODE LV Diastolic Diameter MM 5.0 cm 4.2 - 5.9 / 3.9 - 5.3 cm LV Systolic Diameter MM 3.6 cm LV Ejection Fraction MM Teich 53.7 % IVS Diastolic Thickness MM 1.1 cm 0.6 - 1.0 / 0.6 - 0.9 cm IVS Systolic Thickness MM 1.3 cm LVPW Diastolic Thickness MM 1.4 cm 0.6 - 1.0 / 0.6 - 0.9 cm LVPW Systolic Thickness MM 1.6 cm DOPPLER TR Peak Velocity 286.8 cm/s TR Peak Gradient 32.9 mmHg Right Atrial Pressure 8.0 mmHg Pulmonary Artery Systolic Pressu 40.9 mmHg FINDINGS Left Ventricle Normal left ventricular size, systolic function and wall thickness, with no regional wall motion abnormalities. LV EF is 55-60%. Normal left ventricular wall thickness. Right Ventricle Limited visualization because of limited quality echo. The right ventricle is mildly enlarged and moderate to severely hypokinetic. Right Atrium The right atrium is normal in size. Left Atrium The left atrium is normal in size. Mitral Valve Structurally normal mitral valve. There is no mitral regurgitation. Aortic Valve Grossly normal Tricuspid Valve Structurally normal tricuspid valve without significant stenosis. Mild Tricuspid regurgitation is present. RVSP is 45- 50mmHg. Moderate pulmonary hypertension is present Pulmonic Valve Structurally normal pulmonic valve without significant stenosis. There is no pulmonic regurgitation. Pericardium Normal pericardium without effusion. Aorta Normal ascending aorta dimension. CONCLUSIONS Limited echo to assess Right ventricular function LV systolic function is normal with EF of 55-60% RV visualization was limited however it is mildly enlarged and has moderate to severe hypokinesis. Moderate pulmonary hypertension with RVSP of 45-50mmHg is present. Compared to the prior echo from 03/25/2020, RV dysfunction is a new finding and enlargement is a new finding Tim Ortega MD (Electronically Signed) Final Date: 04 June 2020 17:50 S
--- NOTE | 2020-06-04 15:42 | P.PN_ITS ---
Subjective Subjective: Interval history: Still with some inspiratory chest pain on the left. I saw her earlier today as well and we elected to do a CTA as her renal function had improved. She denies any shortness of breath over baseline. Medications: Reviewed: Yes Vitals/I&O/Wt Last Vital Signs Temp 98.7 F 06/04/20 15:35 Pulse 64 06/04/20 15:35 Resp 18 06/04/20 15:35 BP 152/79 06/04/20 15:35 Pulse Ox 97 06/04/20 15:35 06/04/20 06/04/20 06/04/20 06:59 14:59 22:59 Intake Total 1250 / 2210 1433.75 / 1433.75 Output Total 350 / 350 1000 / 1000 Balance 900 / 1860 433.75 / 433.75 Weight last 48 hrs Weight 78.046 kg Weight 79.832 kg Physical Exam Narrative: EXAM NARRATIVE: General exam is a white female in no apparent distress Cardiovascular regular rate and rhythm without murmur Lungs faint clear but with diminished breath sounds bilaterally Abdomen is soft with positive bowel sounds no obvious organomegaly Extremities no cyanosis clubbing or edema Data : 06/04/20 04:13 06/04/20 04:13 A&P Assessment and plan (1) Syncope: Etiology unknown. Could have been vasovagal. Cannot rule out arrhythmia. May have been hypoxia as she was not wearing her oxygen. Doubt seizure considering description of event. May have been related to dehydration. CTA today, June 04, has confirmed she has a pulmonary embolism, multiple including distal left main saddle embolism. Concern of associated right heart strain on CT Continue telemetry Check echocardiogram Status: Acute Qualifiers: Syncope type: unspecified Qualified Code(s): R55 - Syncope and collapse (2) Chest pain: Patient describes this as pleuritic D-dimer is elevated VQ scan indeterminate Placed on Lovenox 1 mg/kg subcutaneous every 12 hours. I will continue this. Consider conversion to Eliquis on June 06. As patient is hemodynamically stable there is not an indication to change to heparin drip at this time. CTA confirms pulmonary embolism as etiology Status: Acute (3) Acute kidney injury: Improved significantly CK improved Urinalysis essentially normal Status: Acute Additional A&P Information Mild rhabdomyolysis, improved elevated magnesium. Hold her home magnesium. Magnesium level is normal today. history of dementia History of CHF, preserved EF. Compensated currently History of depression GERD Protonix. History of rheumatoid arthritis Hypertension. Holding lisinopril currently secondary to acute kidney injury. Hold Lasix as well. Other medical problems as listed in past medical history Allow natural . 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
[2020-06-05] VITALS (9 sets, daily range): BP systolic 120–151; BP diastolic 63–90; PULSE 56–69; RESP 16–18; TEMP 36.6–36.9; O2SAT 94–100
[2020-06-05] MEDS: enoxaparin 100 mg/mL Syringe 80 MG SUBCUT ×2 (00:48→12:18)
[2020-06-05] MEDS: sodium chloride 0.9% 1,000 ML 75 ML IV (00:48)
[2020-06-05 05:15] LABS: Basophils # 0.1 10^3/uL (0.0-0.1); Basophils % 1.3 %; Eosinophils # 0.3 10^3/uL (0.0-0.8); Eosinophils % 7.6 %; Hematocrit 34.7 % (37.0-47.0); Hemoglobin 10.2 g/dL (11.5-15.3); Lymphocytes # 0.8 10^3/uL (0.8-4.8); Lymphocytes % 20.2 %; Mean Corpuscular HGB Conc 29.4 g/dL (30.0-36.0); Mean Corpuscular Hemoglobin 28.7 pg (28.0-34.0); Mean Corpuscular Volume 97.5 fL (81-99); Mean Platelet Volume 9.3 fL (7.4-10.4); Monocytes # 0.6 10^3/uL (0.2-0.9); Monocytes % 14.4 %; Neutrophils # 2.24 10^3/uL (1.8-7.7); Neutrophils % 56.2 %; Nucleated Red Blood Cells % 0 %; Platelet Count 186 10^3/cmm (130-400); Red Blood Count 3.56 10^6/uL (4.1-5.3); Red Cell Distribution Width 13.2 % (12.1-15.1)
[2020-06-05 05:33] LABS: Alanine Aminotransferase 12 U/L (0-33); Albumin Level 3.2 g/dL (3.5-5.2); Alkaline Phosphatase 64 IU/L (35-105); Anion Gap 12.5 (5-19); Aspartate Amino Transferase 22 U/L (0-32); Blood Urea Nitrogen 19 mg/dL (8-23); Calcium 8.6 mg/dL (8.5-10.5); Carbon Dioxide 27 mmol/L (22-29); Chloride 108 mmol/L (98-107); Glucose 97 mg/dL (65-115); Osmolality Calculated 298 mOsm/kg (285-295); Potassium 4.5 mmol/L (3.5-5.1); Sodium 143 mmol/L (136-145); Total Bilirubin 0.2 mg/dL (0.15-1.2); Total Protein 5.2 g/dL (6.6-8.7)
[2020-06-05] MEDS: donepezil 5 MG Tablet 10 MG PO (08:43)
[2020-06-05] MEDS: pantoprazole DR 40 mg Tablet PO ×2 (08:43→17:17)
[2020-06-05] MEDS: aspirin 81 mg EC Tablet PO (08:43)
[2020-06-05] MEDS: citalopram 20 mg Tablet PO (08:43)
[2020-06-05] MEDS: gabapentin 300 mg Capsule PO ×3 (08:43→21:03)
[2020-06-05] MEDS: anastrozole 1 mg Tablet PO (08:48)
--- NOTE | 2020-06-05 14:03 | PM.PN ---
Subjective Subjective: Interval history: Maddison reports she is doing okay. No particular concerns. Chest pain on the left is better. Medications: Reviewed: Yes Vitals/I&O/Wt Last Vital Signs Temp 98.4 F 06/05/20 11:25 Pulse 56 L 06/05/20 11:25 Resp 18 06/05/20 11:25 BP 151/90 06/05/20 11:25 Pulse Ox 97 06/05/20 11:25 06/04/20 06/05/20 06/05/20 22:59 06:59 14:59 Intake Total 640 / 2073.75 812.5 / 2886.25 1940 / 1940 Output Total 400 / 1400 700 / 700 Balance 240 / 673.75 812.5 / 1486.25 1240 / 1240 Weight last 48 hrs Weight 79.832 kg Weight 78.046 kg Physical Exam Narrative: EXAM NARRATIVE: General exam no distress Cardiovascular regular rate and rhythm without murmur Lungs faint clear but with diminished breath sounds bilaterally Abdomen is soft with positive bowel sounds no obvious organomegaly Extremities no cyanosis clubbing or edema Data : 06/05/20 04:15 06/05/20 04:15 A&P Assessment and plan (1) Syncope: Etiology unknown. Could have been vasovagal. Cannot rule out arrhythmia. May have been hypoxia as she was not wearing her oxygen. Doubt seizure considering description of event. May have been related to dehydration. CTA today, June 04, has confirmed she has a pulmonary embolism, multiple including distal left main saddle embolism. Concern of associated right heart strain on CT Continue telemetry Check echocardiogram Was placed on Lovenox on admission, 1 mg/kg. Convert to Eliquis tomorrow and hopefully discharge. She has remained clinically stable. Status: Acute Qualifiers: Syncope type: unspecified Qualified Code(s): R55 - Syncope and collapse (2) Chest pain: Patient describes this as pleuritic D-dimer is elevated VQ scan indeterminate Placed on Lovenox 1 mg/kg subcutaneous every 12 hours. I will continue this. Consider conversion to Eliquis on June 06. As patient is hemodynamically stable there is not an indication to change to heparin drip at this time. CTA confirms pulmonary embolism as etiology Echocardiogram does confirm right heart strain. Patient has clinically remained stable, on home oxygen amount. Dyspnea significantly improved. Status: Acute (3) Acute kidney injury: Improved significantly CK improved Urinalysis essentially normal Status: Acute Additional A&P Information Mild rhabdomyolysis, improved elevated magnesium. Hold her home magnesium. Magnesium level is normal today. history of dementia History of CHF, preserved EF. Compensated currently History of depression GERD Protonix. History of rheumatoid arthritis Hypertension. Holding lisinopril currently secondary to acute kidney injury. Hold Lasix as well. Other medical problems as listed in past medical history Allow natural . Discussed with patient and Lovenox will serve for DVT prophylaxis Attestations Medical Necessity Statement*: Needs continued close monitoring secondary to PE, with right heart strain. 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
[2020-06-06] VITALS (9 sets, daily range): BP systolic 129–153; BP diastolic 64–74; PULSE 57–74; RESP 15–18; TEMP 36.4–36.7; O2SAT 94–99
--- NOTE | 2020-06-06 01:03 | USR_ITS ---
PROCEDURE INFORMATION: Exam: US Duplex Left Lower Extremity Veins, Limited Exam date and time: 06/06/2020 2:01 AM Age: 74 years old Clinical indication: Pain; Other: Bruising; Leg, lower; Prior surgery; Surgery date: 6+ months; Surgery type: Left knee; Additional info: Acute hematoma vs clot, on anticoagulation TECHNIQUE: Imaging protocol: Real-time Duplex ultrasound of the Left Lower Extremity with 2-D valencia scale, color Doppler flow and spectral waveform analysis with image documentation. Limited exam focused on the left lower extremity veins. COMPARISON: US ROR venous duplex [facility] 07/05/2015 11:51 AM FINDINGS: Evaluated veins include the left common femoral, proximal profunda femoral, proximal/mid/distal superficial femoral, popliteal, posterior tibial, peroneal, and proximal greater saphenous veins. There appears to be some occluding thrombus in a relatively short segment of the lower left greater saphenous vein,(a superficial vein), just above the ankle. Technologist reports that this is at a site of bruising. There is a mildly complex 28 x 10 x 26 mm fluid collection adjacent to this region. While nonspecific, possibilities would include hematoma or abscess. Please correlate clinically. No visible clot in the included veins. The included veins appear normally compressible. Duplex Doppler evaluation demonstrates flow in the evaluated veins. US/[place] [address] IMPRESSION: 1. Apparent occluding thrombus in a relatively short segment of the lower left greater saphenous vein,(a superficial vein), just above the ankle. 2. Mildly complex 28 x 10 x 26 mm fluid collection adjacent to this region. While nonspecific, possibilities would include hematoma or abscess. Please correlate clinically. 3. No evidence of acute left lower extremity deep venous thrombosis.
--- NOTE | 2020-06-06 01:12 | P.EN_ITS ---
Event Note Event Note: Called with patient complaining of acute pain in her leg. S to the point that is now a constant ache. He says it began this afternoon and has progressively worsened on examination she has approximately 8 cm diameter area of soft tissue fullness that is tender to palpation in the medial portion of the left calf. Centrally there is bruising. It remains soft despite the degree of tenderness. Dorsalis pedis and posterior tibialis pulses as well as femoral pulses are intact and 2+. Area is well-circumscribed and will be marked. Given that patient is on anticoagulation at treatment this with Lovenox currently, this could be an acute bleed into the muscle belly. She states that there was n othing in this portion of her leg previously. Thrombosis could also present a bit similarly but not usually is such a distribution. I have asked for ultrasound to come in this evening. Leg has been elevated. Will provide some pain medication. I have currently held Lovenox which was due to be given about an hour ago. Patient's heart rate, oxygen saturation and blood pressure are currently stable. She is on telemetry monitoring.
[2020-06-06] MEDS: TRAMadol 50 mg Tablet PO (01:24)
--- NOTE | 2020-06-06 01:27 | PC.NURSE ---
Patient Update Patient complained of pain in left lower interior medial extremity. This nurse examined leg and observed a hardened raised mass with minimal bruising. The patient stated the mass was painful but more painful when touched. This nurse notified Dr. Donald of findings. Dr. Donald examined patient and also observed mass. Order was also given to hold Lovenox at this time. Dr. Donald ordered for leg to be elevated, warm compress to be applied, ultrasound to be performed and tramadol given for pain. This nurse and Dr. Donald measured mass, measurments were 10x7 cm with 3x2 cm bruising. Left leg @ tibial plateau was 39 cm circumference, right leg @ tibial plateau was 38 cm.
[2020-06-06] MEDS: enoxaparin 100 mg/mL Syringe 80 MG SUBCUT (02:36)
[2020-06-06] MEDS: acetaminophen 325 mg Tablet 650 MG PO (07:24)
[2020-06-06] MEDS: pantoprazole DR 40 mg Tablet PO ×2 (08:07→17:27)
[2020-06-06] MEDS: donepezil 5 MG Tablet 10 MG PO (08:07)
[2020-06-06] MEDS: citalopram 20 mg Tablet PO (08:07)
[2020-06-06] MEDS: aspirin 81 mg EC Tablet PO (08:07)
[2020-06-06] MEDS: gabapentin 300 mg Capsule PO ×3 (08:07→19:56)
[2020-06-06] MEDS: ipratropium-albuterol 3 mL Neb INHALATION (08:34)
--- NOTE | 2020-06-06 12:06 | P.PN_ITS ---
Subjective Subjective: Interval history: She says she is overall doing okay. Denies any chest pressure. Says she has been having cough and developed tenderness in left lower anterior chest wall reproducible with inspiration, to palpation. Otherwise is comfortable on 2 L nasal cannula. Vitals/I&O/Wt Last Vital Signs Temp 97.5 F L 06/06/20 11:00 Pulse 66 06/06/20 11:00 Resp 16 06/06/20 11:00 BP 132/64 06/06/20 11:00 Pulse Ox 95 06/06/20 08:35 06/05/20 06/06/20 06/06/20 22:59 06:59 14:59 Intake Total 100 / 3040 440 / 440 Output Total 350 / 1050 550 / 1600 Balance -350 / 1890 -450 / 1440 440 / 440 Weight last 48 hrs Weight 80.739 kg Weight 79.832 kg Physical Exam Const: COMMON NORMALS: no acute distress and patient oriented x3 OTHER: Awake, alert, pleasant, conversant. HENMT: COMMON NORMALS: oropharynx normal Neck/C-Spine: COMMON NORMALS: no JVD Resp: COMMON NORMALS: normal respiratory effort and clear to auscultation bilaterally AUSCULTATION: clear to auscultation bilaterally Cardio: COMMON NORMALS: no JVD, regular rhythm, S1 normal heart sound present, S2 normal heart sound present and No murmurs present (Cardio) RHYTHM: regular rhythm HEART SOUNDS: S1 normal heart sound present and S2 normal heart sound present GI: COMMON NORMALS: Normal to inspection, nondistended, normoactive bowel sounds present, Soft to palpation and non-tender PALPATION: Yes Soft to palpation Extremity: COMMON NORMALS: no joint enlargement and no pedal edema Neuro: COMMON NORMALS: patient oriented x3 and moves all extremities Skin: COMMON NORMALS: no rashes or lesions noted GENERAL SKIN EXAM: no rashes or lesions noted Data : 06/05/20 04:15 06/05/20 04:15 A&P Assessment and plan (1) Pulmonary emboli: Including nonobstructive saddle PE, with some noted heart strain on CT and echo. Oxygenation and vital signs have remained stable while on Lovenox. Plan by the admitting team was going to transition to [facility] today, and likely discharge home. However, overnight developed more swelling, tenderness in the left calf, with area of superficial thrombophlebitis noted on duplex ultrasound, as well as a complex collection. Discussed with patient this may be hematoma and per discussion with radiology appears this is what it is, however, initial report could not exclude abscess. Discussed this with patient as well. She does not have any overlying cellulitis, there is no induration, no fluctuance, there is palpable cord. Per discussion with radiology this may be a transforming hematoma from prior clots. At this time will monitor while transitioning to Eliquis in the hospital. She is agreeable with this and if is doing well possible return home tomorrow. Status: Acute (2) Syncope: Suspected due to pulmonary emboli including saddle embolus. Consideration was also possibly not wearing oxygen. Vital signs remained stable at this time. As above. Status: Acute Qualifiers: Syncope type: unspecified Qualified Code(s): R55 - Syncope and collapse (3) Superficial thrombophlebitis: As above. Discussed with patient. Discussed with radiology. Discussed with patient concern of complicated fluid collection, possible hematoma. Cannot exclude abscess. This appears to be much less likely, she has no signs of overlying cellulitis. There is palpable cord and a small overlying bruise. At this time there is no place to insert a needle for drainage. Monitor clinically and reassess tomorrow. Status: Acute (4) Hematoma: Left calf complex fluid collection as noted above. At this time continue anticoagulation, transition to Eliquis, monitor for any changes. Status: Acute (5) Chest pain: Has some left anterior lower chest discomfort. This is triggered by inspiration, as well as by palpation. Discussed with her, appears may be multifactorial, she has been having cough, and may in fact have some intercostal or costal injury. Otherwise chest discomfort may be due to PEs. Status: Acute (6) Acute kidney injury: Improved significantly CK improved Urinalysis essentially normal Status: Acute Additional A&P Information Mild rhabdomyolysis, improved Elevated magnesium. Hold her home magnesium. Magnesium level normalized. History of dementia History of CHF, preserved EF. Compensated currently History of depression GERD Protonix. History of rheumatoid arthritis Hypertension. Holding lisinopril currently secondary to acute kidney injury. Hold Lasix as well. Other medical problems as listed in past medical history Allow natural . Discussed with patient and Attestations Medical Necessity Statement*: Continue admission for assessment management of pulmonary emboli with saddle PE, superficial thrombophlebitis, hematoma. 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
[2020-06-06] MEDS: apixaban 5 mg Tablet 10 MG PO (12:12)
--- NOTE | 2020-06-06 15:25 | PC.RESP ---
Pulmonary Rehab information sent to patient.
[2020-06-07] VITALS (8 sets, daily range): BP systolic 123–160; BP diastolic 64–78; PULSE 56–76; RESP 18; TEMP 36.4–37; O2SAT 85–98
[2020-06-07] MEDS: apixaban 5 mg Tablet 10 MG PO ×2 (00:19→13:03)
[2020-06-07] MEDS: acetaminophen 325 mg Tablet 650 MG PO ×2 (00:21→13:03)
[2020-06-07 05:06] LABS: Basophils # 0.1 10^3/uL (0.0-0.1); Eosinophils # 0.3 10^3/uL (0.0-0.8); Eosinophils % 6.6 %; Hematocrit 34.5 % (37.0-47.0); Hemoglobin 10.4 g/dL (11.5-15.3); Lymphocytes # 0.7 10^3/uL (0.8-4.8); Lymphocytes % 14.6 %; Mean Corpuscular HGB Conc 30.1 g/dL (30.0-36.0); Mean Corpuscular Hemoglobin 28.8 pg (28.0-34.0); Mean Corpuscular Volume 95.6 fL (81-99); Mean Platelet Volume 8.8 fL (7.4-10.4); Monocytes # 0.8 10^3/uL (0.2-0.9); Monocytes % 15.2 %; Neutrophils # 3.11 10^3/uL (1.8-7.7); Neutrophils % 62.4 %; Nucleated Red Blood Cells % 0 %; Platelet Count 184 10^3/cmm (130-400); Red Blood Count 3.61 10^6/uL (4.1-5.3); Red Cell Distribution Width 12.9 % (12.1-15.1)
[2020-06-07 05:27] LABS: Anion Gap 8.4 (5-19); Blood Urea Nitrogen 14 mg/dL (8-23); Calcium 8.7 mg/dL (8.5-10.5); Carbon Dioxide 31 mmol/L (22-29); Chloride 104 mmol/L (98-107); Glucose 97 mg/dL (65-115); Osmolality Calculated 288 mOsm/kg (285-295); Potassium 4.4 mmol/L (3.5-5.1); Sodium 139 mmol/L (136-145)
--- NOTE | 2020-06-07 06:43 | PC.NURSE ---
SHIFT SUMMARY Had a good night. Medicated X1 with po Tylenol for c/o headache. Are to left calf without change from previous markings. Area is firm, warm and tender to touch and with bruising present. Some trace edema to calf. Keeping leg elevated on pillow. Has some SOB with exertion but says is improved from admission. Occ dry cough.
--- NOTE | 2020-06-07 08:30 | PC.SOCIAL ---
IMM Page 2 of IMM explained to patient. Initialed, dated, and timed and placed in chart. Copy provided to patient.
[2020-06-07] MEDS: pantoprazole DR 40 mg Tablet PO (08:34)
[2020-06-07] MEDS: aspirin 81 mg EC Tablet PO (08:34)
[2020-06-07] MEDS: gabapentin 300 mg Capsule PO ×2 (08:34→15:40)
[2020-06-07] MEDS: citalopram 20 mg Tablet PO (08:34)
[2020-06-07] MEDS: donepezil 5 MG Tablet 10 MG PO (08:35)
[2020-06-07] MEDS: TRAMadol 50 mg Tablet PO (08:36)
--- NOTE | 2020-06-07 09:54 | PC.CHAP ---
Pastoral Care Encounter/Spiritual Assessment Type of Contact [] Declined fender finisher visit [] Patient/Family/Request visit [] Outpatient visit [] Follow-up visit [] Physician referral [] Code/Alert [x] Routine visit [] Staff referral [] Actively dying [] Patient sleeping [] Family support [] [] Out of room [] Palliative care [] [] Receiving care in room [] Pre-surgical visit [] Trauma [] Long length of stay [] ICU visit [] Other: Relational/Emotional Strength [] Patient feels connected with others/family/visitors/staff [] Distress [] Loneliness/isolation [] Abandonment Spirituality of Patient [] Person of Deepali [] Attends Holiness of their Deepali [] Believes in Prayer [] Reads Bible or Jehovah'S Witness materials [] There are Spiritual issues to be addressed Community Theater Actor Interventions [x] Prayer [x] Active listening [x] Non-anxious presence [x] Spiritual/emotional support [] Crisis/trauma care [] Spiritual counseling [] Bereavement support [] Provided bereavement packet [] Provided Bible/devotional materials [] Provided toy/stuffed animal, coloring book to patient or family member [] Provided Communion [] Anointing/[place] [] Salvation [x] Completed spiritual assessment [] Other: Impact on Illness or Injury [] Angry [] Fearful [] Anxious [] Often cries [] Exhaustion [] Unable to work [] Unable to attend uatsdin [] Unable to walk/stand [] Unable to read [] Unable to drive [] Unable to eat/drink [] Unable to sleep [] Unable to be with family [] Patient intubated [] Other: Summary patient feeling good Time spent with patient 5 min
--- NOTE | 2020-06-07 10:37 | ECG_ITS ---
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 Measurements Intervals [place] Rate: -1 P: AK: -1 QRS: 0 QRSD: -1 T: 0 QT: -1 QTc: Interpretive Statements NO FURTHER INTERPRETATION POSSIBLE ATYPICAL ECG WARNING: DATA QUALITY MAY AFFECT INTERPRETATION Compared to ECG 06/03/2020 09:39:04 Sinus rhythm no longer present Sinus bradycardia Baseline artifact Electronically Signed On 06-07-2020 20:55:10 CDT by Lacy Santos M.D. [id number]
[2020-06-07 11:04] LABS: NT Pro B Type Natriuretic Pept 2090 pg/mL (0-125)
[2020-06-07 11:39] LABS: Troponin(5th) Baseline 26 ng/L (0-10)
--- NOTE | 2020-06-07 12:37 | ECG_ITS ---
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 Measurements Intervals [place] Rate: 58 P: 22 HI: 186 QRS: 34 QRSD: 108 T: 9 QT: 419 QTc: 412 Interpretive Statements SINUS BRADYCARDIA MODERATE INTRAVENTRICULAR CONDUCTION DELAY [105+ ms QRS DURATION, 80+ ms Q/S IN V1/V2, NO Q AND 60+ ms R IN I/aVL/V5/V6] WARNING: DATA QUALITY MAY AFFECT INTERPRETATION Compared to ECG 06/07/2020 12:00:11 Intraventricular conduction delay now present Electronically Signed On 06-08-2020 21:37:29 CDT by Lacy Santos M.D. [id number]
[2020-06-07 14:19] LABS: Troponin 5 2HR 25.47 ng/L (0-10)
[2020-06-07 14:29] LABS: Troponin 5 2HR Delta -0.53 ABS# (0-10)
--- NOTE | 2020-06-07 16:37 | ECG_ITS ---
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 Measurements Intervals [place] Rate: 56 P: NC: -1 QRS: 31 QRSD: 105 T: 18 QT: 412 QTc: 400 Interpretive Statements SUPRAVENTRICULAR BRADYCARDIA ABNORMAL RHYTHM ECG WARNING: DATA QUALITY MAY AFFECT INTERPRETATION Compared to ECG 06/07/2020 13:37:48 Sinus bradycardia no longer present Intraventricular conduction delay no longer present Electronically Signed On 06-08-2020 21:38:34 CDT by Lacy Santos M.D. [id number]
[2020-06-07 17:12] LABS: Troponin 5 6HR 24.01 ng/L (0-10); Troponin 5 6HR Delta -1.99 ng/L (0-12)
--- NOTE | 2020-06-07 19:12 | PC.NURSE ---
DISCHARGE VS checked and discharge instructions given. IV discontinued. Pt says just some slight aching in left lower leg on discharge. here to take home and taken to car in wheelchair per N aidmorro
--- NOTE | 2020-06-07 20:24 | PM.DCS ---
Discharge Providers Date of Admission: 06/04/20 15:45 Date of Discharge: June 07, 2020 Attending Provider at Admission: Jamari Mercado MD Attending Provider at Discharge: Hima Burden Primary Care Provider: Zhang Gamboa MD Diagnoses at Discharge Discharge Diagnosis (1) Pulmonary emboli: Status: Acute (2) Syncope: Status: Acute Qualifiers: Syncope type: unspecified Qualified Code(s): R55 - Syncope and collapse (3) Superficial thrombophlebitis: Status: Acute (4) Hematoma: Status: Acute Problem details: Small complex fluid lesion adjacent to superficial thrombophlebitis in the left calf, 26 x 10 x 24 mm, suspected hematoma, based on imaging abscess cannot be ruled out, but clinically does not appear to be so (5) Chest pain: Status: Acute (6) Acute kidney injury: Status: Acute Reason for Visit Reason for Visit: FALL,LOC Hospital Course Hospital Course: 74-year-old lady was evaluated in the hospital due to syncopal episode, with some associated chest discomfort over the prior week especially when taking deep breaths, short of breath with ambulation progressively getting worse over the prior 2 years, was not wearing oxygen during the syncope episode. Elevated d-dimer noted in the ER. VQ scan was indeterminate. CTA was not performed due to acute kidney injury on presentation. She was monitored on telemetry, vital sign evaluation, with empiric Lovenox due to concern for possible PE. CT was performed after renal function improved after her lisinopril and Lasix were held, received gentle rehydration. CT of the chest showed multiple pulmonary emboli, including nonocclusive saddle embolus. Her oxygenation remained stable, requiring 2 L of oxygen at rest, vital signs remained stable without any hypotension. She has had some pleuritic discomfort, but otherwise no chest pain. Some signs of RV strain were noted on CTA. Some right ventricular dilation, hypokinesis noted on echocardiogram with pulmonary hypertension 45-50 mmHg right ventricular systolic pressure. She was treated with Lovenox, subsequently transitioned to Eliquis while in the hospital. She also noted some swelling tenderness of the left calf, and on evaluation by duplex noted superficial thrombophlebitis in the greater saphenous vein, as well as area of complex fluid collection, hematoma, but abscess cannot be excluded, 26 x 10 x 24 mm. These findings were discussed with her and her , and her oncologist was updated as well. There were no signs of cellulitis, no fluctuance superficially or other findings to suggest abscess. She remained afebrile. Discussion with radiology findings appear more like hematoma, possibly conversion from the adjacent clot. Anticoagulation was continued, she was additionally monitored in the hospital without any progression at the location of the short palpable cord in the left calf. Discussed with her consideration of compression stockings to reduce chance of post phlebitis syndrome. We did discuss with her and her regarding appearance of RV strain on imaging. She is otherwise done clinically well, however, with syncope on presentation, as well as multilobar PE consideration was given to whether she may be candidate for thrombolyzes. With their agreement we reached out to [facility] where I also discussed her case with septic tank cleaner Dr. Nowak, who additionally reached out to the interventional radiologist there would be able to perform such procedure, and after careful consideration and discussion of her case consensus was reached that currently risks of bleeding would outweigh the benefits from thrombolysis, and so the procedure was recommended against currently. Discussed with her in case there is any persistent hypotension, tachycardia, worsening hypoxia, or other concerning symptoms to seek medical attention immediately, and at that time if needed thrombolyzes may be considered again. They verbalized understanding. She will at this time continue on Eliquis. Please reassess, as well as follow blood counts. Discussed also with her oncologist and she is encouraged to follow-up with him due to history of breast cancer a year ago. At this time her Demadex is held until may be safe to resume per oncology. Prescription no additional evaluation is for now sought until she is seen in clinic. Acute kidney injury present on admission has resolved. Mild rhabdomyolysis on presentation had improved. For now lisinopril and Lasix are held to reduce chance of recurrence of kidney injury as well as reduce chance of hypotension with pulmonary emboli. Please reassess and resume when and if appropriate. Physical Exam Const: COMMON NORMALS: no acute distress and patient oriented x3 OTHER: She is aware, alert, comfortable. is at bedside. HENMT: COMMON NORMALS: oropharynx normal Neck/C-Spine: COMMON NORMALS: no JVD Resp: COMMON NORMALS: normal respiratory effort and clear to auscultation bilaterally AUSCULTATION: clear to auscultation bilaterally Cardio: COMMON NORMALS: no JVD, regular rhythm, S1 normal heart sound present, S2 normal heart sound present and No murmurs present (Cardio) RHYTHM: regular rhythm HEART SOUNDS: S1 normal heart sound present and S2 normal heart sound present GI: COMMON NORMALS: Normal to inspection, nondistended, normoactive bowel sounds present, Soft to palpation and non-tender PALPATION: Yes Soft to palpation Extremity: COMMON NORMALS: no joint enlargement and no pedal edema NARRATIVE EXTREMITY EXAM: Palpable short cord at the medial calf mid lower leg. No erythema, no induration. Neuro: COMMON NORMALS: patient oriented x3 and moves all extremities Skin: COMMON NORMALS: no rashes or lesions noted GENERAL SKIN EXAM: no rashes or lesions noted Discharge Data Data Completed and Pending: Completed Studies During Hospitalization Category Date Time Status CT angio chest PE protcl 12028 Rout ine Cat Scan 06/04/20 10:[address] head wo con* 7 0450 Stat Cat Scan 06/03/20 09:07 Completed XR chest 1V kala ble 93945 Stat Exams 06/03/20 09:07 Completed NM pul vent and p erfus* 70870 Stat Nuc Med 06/03/20 10:30 Completed CV echo limited 9 3308 Routine Ultrasound 06/04/20 15:22 [place] [address] Stat Ultrasound 06/06/20 01:03 Completed Labs from last 24 hours 06/07/20 06/07/20 06/07/20 16:50 13:24 10:56 WBC RBC Hgb Hct MCV MCH MCHC RDW Plt Count MPV Neut % (Auto) Lymph % (Auto) [place] % (Auto) Eos % (Auto) Baso % (Auto) Neut # (Auto) Lymph # (Auto) [place] # (Auto) Eos # (Auto) Baso # (Auto) Nucleated RBC % (a uto) Nucleated RBCs # Sodium Potassium Chloride Carbon Dioxide Anion Gap BUN Creatinine GFR Calculation Glucose Calculated Osmolal ity Calcium Troponin T Baselin e 26 H Troponin T [address] [place] 25.47 H Delta Troponin T -0.53 L Troponin T Hi Sens 6Hr 24.01 H Troponin T Hi Sens 6Hr Delta -1.99 L NT-Pro-B Natriuret Pep 06/07/20 06/07/20 06/07/20 04:48 04:48 04:48 WBC 5.0 RBC 3.61 L Hgb 10.4 L Hct 34.5 L MCV 95.6 MCH 28.8 MCHC 30.1 RDW 12.9 Plt Count 184 MPV 8.8 Neut % (Auto) 62.4 Lymph % (Auto) 14.6 [place] % (Auto) 15.2 Eos % (Auto) 6.6 Baso % (Auto) 1.0 Neut # (Auto) 3.11 Lymph # (Auto) 0.7 L [place] # (Auto) 0.8 Eos # (Auto) 0.3 Baso # (Auto) 0.1 Nucleated RBC % (a uto) 0 Nucleated RBCs # 0.0 Sodium 139 Potassium 4.4 Chloride 104 Carbon Dioxide 31 H Anion Gap 8.4 BUN 14 Creatinine 0.9 GFR Calculation Not Reportable Glucose 97 Calculated Osmolal ity 288 Calcium 8.7 Troponin T Baselin e Troponin T [address] [place] Delta Troponin T Troponin T Hi Sens 6Hr Troponin T Hi Sens 6Hr Delta NT-Pro-B Natriuret Pep 2090 H Vitals: Last Vital Signs Temp 98.1 F 06/07/20 20:00 Pulse 62 06/07/20 20:00 Resp 18 06/07/20 20:00 BP 132/65 06/07/20 20:00 Pulse Ox 97 06/07/20 20:00 Discharge Plan Discharge Patient Disposition: Home Condition: Stable Prescriptions: Ananda Uribe DVT-PE Treat 30D Start 5 mg (74 tabs) tablets,dose pack See Rx Instructions .ROUTE .COMPLEX Qty: 74 RF: 0 Continued gabapentin 300 mg capsule 300 mg PO TID RF: 0 tizanidine 4 mg capsule 4 mg PO BEDTIME PRN (Reason: Muscle Pain) RF: 0 rosuvastatin [Crestor] 10 mg tablet 10 mg PO ONCE RF: 0 donepezil 10 mg tablet 10 mg PO DAILY RF: 0 potassium chloride [Klor-Con M20] 20 mEq tablet,ER particles/crystals 20 meq PO DAILY RF: 0 citalopram 20 mg tablet 20 mg PO DAILY RF: 0 ferrous sulfate 324 mg (65 mg iron) tablet,delayed release (DR/EC) 324 mg PO DAILY RF: 0 pantoprazole 40 mg tablet,delayed release (DR/EC) 40 mg PO BID RF: 0 mecobalamin (vitamin B12) 1,000 mcg tablet,chewable 1,000 mcg PO DAILY RF: 0 aspirin [Adult Aspirin Regimen] 81 mg tablet,delayed release (DR/EC) 81 mg PO DAILY RF: 0 magnesium oxide 500 mg capsule 500 mg PO DAILY RF: 0 fluticasone propionate [Flonase Allergy Relief] 50 mcg/actuation spray,suspension 1 spray INTRANASAL BID RF: 0 albuterol sulfate 2.5 mg /3 mL (0.083 %) solution for nebulization 2.5 mg INHALATION BID PRN (Reason: Shortness Of Breath Or Wheezing) RF: 0 Trelegy Ellipta 100-62.5-25 mcg blister with device 1 inh INHALATION Q24H 90 Days Qty: 60 RF: 3 dicyclomine 20 mg tablet 20 mg PO BID RF: 0 Held anastrozole 1 mg tablet 1 mg PO DAILY RF: 0 Hold Instructions: Resume on 06/21/20. Discontinued lisinopril 10 mg tablet 10 mg PO DAILY RF: 0 furosemide 40 mg tablet 40 mg PO QAM RF: 0 Discharge Orders: Discharge Order (Routine); Ordered 06/07/20 Ordered By: Hima Burden Other Ambulatory Orders: DME: Oxygen (Order) Location: None Selected Ordered By: Hima Burden Referrals: [facility] [Outside] Zhang Gamboa MD [Primary Care Provider] - 06/15/20 3:00 pm Discharge Diet: Cardiac Discharge Activity: Oxygen as instructed Patient Instructions: Apixaban (By mouth), Pulmonary Embolism (DC) Activity Restrictions/Additional Instructions: Please continue oxygen as instructed. 2 L/min by nasal cannula at rest, increase to 3 L with exertion. Target oxygen saturation 92%. Please monitor your blood pressures twice daily. Record values to bring to her appointment. If you notice any persisting increase in your heart rates to 100 or above, worsening shortness of breath, chest pain, fainting, any low blood pressures, or other concerning symptoms, please seek medical attention without delay. Please exercise extra caution as Eliquis is a blood thinner, and so you will be predisposed to bleeding. Please avoid any injury. If you need any procedures this medication will need to be held in advance. Consider obtaining graduated compression stockings for left lower extremity to avoid post VTE phlebitis. Discussed with your primary care provider. You will need to measure your leg circumference first thing in the morning to obtain the proper size. Compression of 20-30 mmHg would be recommended. At this time due to multiple blood clots your Arimidex is held. You are asked to follow-up with your oncologist in office. Please follow-up with your primary care provider as well within a week with regards to blood thinner, blood clots, as well as monitoring of blood count. Please discuss with your primary care provider also regarding small bleeding collections in your left calf. If you notice any overlying redness, worsening swelling, warmth, develop any fever, or other concerning symptoms, seek medical attention. Your lisinopril and Lasix for now are stopped due to kidney injury on presentation, as well as to avoid low blood pressure in the setting of blood clots. Please discuss with your primary care doctor when it is safe to restart them. Discharge Date/Time: 06/07/20 19:10 Discharge Attestations Time Spent in Discharge Care*: greater than 30 min Quality Metrics Clinical Quality Measures During this hospital stay, did patient experience: None Coding Level of Care Code Acute Loss Prevention/Safety District Manager for Gus Gilliamd Diagnoses Pulmonary emboli I26.99 Syncope R55 Syncope type: unspecified Superficial thrombophlebitis I80.9 Hematoma T14.8XXA Chest pain R07.9 Acute kidney injury N17.9
== END 2020-06-07 19:10 | disposition home or self-care (01) | DRG 176 ==
LOC: ER 12:37 → MEDSURG 13:37
PROVIDERS: Admitting Provider Internal Medicine; Emergency Provider Emergency Medicine; PCP Family Medicine; Visit Provider Internal Medicine
DX: I26.92 Saddle embolus of pulmonary artery without acute cor pulmonale (principal); I50.32 Chronic diastolic (congestive) heart failure; N17.9 Acute kidney failure, unspecified; M62.82 Rhabdomyolysis; F32.9 Major depressive disorder, single episode, unspecified; G30.9 Alzheimer's disease, unspecified; F02.80 Dementia in other diseases classified elsewhere, unspecified severity, without behavioral disturbance, psychotic disturbance, mood disturbance, and anxiety; E53.8 Deficiency of other specified B group vitamins; C50.919 Malignant neoplasm of unspecified site of unspecified female breast; I11.0 Hypertensive heart disease with heart failure; J44.9 Chronic obstructive pulmonary disease, unspecified; K21.9 Gastro-esophageal reflux disease without esophagitis; E78.5 Hyperlipidemia, unspecified; K58.9 Irritable bowel syndrome, unspecified; M06.9 Rheumatoid arthritis, unspecified; I83.92 Asymptomatic varicose veins of left lower extremity; Z87.891 Personal history of nicotine dependence; E86.0 Dehydration; Z66 Do not resuscitate; I80.02 Phlebitis and thrombophlebitis of superficial vessels of left lower extremity; Z99.81 Dependence on supplemental oxygen; Z79.51 Long term (current) use of inhaled steroids; Z79.82 Long term (current) use of aspirin; I27.20 Pulmonary hypertension, unspecified; R07.81 Pleurodynia; S80.12XA Contusion of left lower leg, initial encounter; X58.XXXA Exposure to other specified factors, initial encounter
CPT/HCPCS: 12345; 36415; 70450; 71045; 71275; 78014; 80048; 80053; 81001; 82550; 83735; 83880; 84443; 84484; 85025; 85378; 85651; 86140; 93005; 93308; 93971; 94640; 94760; 96372; 97110; 97116; 97161; 99283; A9540; A9567; G0378; J1650; J7030; J8999; Q9967

== ENCOUNTER 2020-06-23 19:58 | Inpatient (IN) | payer MEDICARE, SELFPAY ==
[2020-06-23] VITALS (9 sets, daily range): BP systolic 113–151; BP diastolic 47–75; PULSE 54–61; RESP 17–24; TEMP 36.4–36.9; O2SAT 93–100; BMI 29.2
--- NOTE | 2020-06-23 20:03 | ECG_ITS ---
[facility] Test Date: 2020-06-23 Pat Name: Maddison Jenkins Department: Room: 279 Gender: Female Float Tender: : 1945 Requested By: Sean Salinas Order Number: [id number] John MD: Lacy Santos M.D. Measurements Intervals [place] Rate: 59 P: 17 MS: 169 QRS: 62 QRSD: 94 T: 42 QT: 433 QTc: 432 Interpretive Statements SINUS BRADYCARDIA LOW QRS VOLTAGE IN PRECORDIAL LEADS [QRS DEFLECTION < 1.0 mV IN CHEST LEADS] Compared to ECG 06/07/2020 18:25:49 Low QRS voltage now present Electronically Signed On 06-24-2020 20:27:12 CDT by Lacy Santos M.D. [email or web address]
--- NOTE | 2020-06-23 20:03 | XR_ITS ---
WS: [id number] Portable AP upright chest, 06/23/2020 Clinical Data: weakness Comparison: Portable chest, 06/03/2020. Findings: No nodules, masses or effusions are seen. The heart is normal. The pulmonary vascularity is not increased. No pneumonia or pneumothorax is seen. There is still a minimal patchy opacity in the right lower lobe which could represent pneumonia or atelectasis. Patient has had an anterior cervical disc fusion. There are also posterior fusion screws in the upper lumbar spine. Monitor leads are on the chest wall. XR/XR chest 1V portable 05209 Impression: 1. Minimal patchy opacity in right lower lobe which could indicate atelectasis and/or minimal pneumonia. 2. Recommend repeat chest x-ray in 4-5 days.
--- NOTE | 2020-06-23 20:06 | W.ED.GENADLT ---
HPI - General Adult General: Chief complaint: General Medical Stated complaint: hypotension Time Seen by Provider: 06/23/20 19:59 Source: patient and EMS Mode of arrival: EMS Limitations: no limitations History of Present Illness: HPI narrative: 75-year-old female with a history of pulmonary embolism diagnosed earlier this month. Patient had a saddle embolus and has been on Eliquis. She states that tonight started feeling weak took her blood pressure and was in the 80s. EMS arrived and gave her 250 mL bolus along with a push dose epinephrine. Blood pressure is now 104/53. She denies any chest pain or shortness of breath states she is just been feeling lightheaded. Associated symptoms: Deny chest pain, dyspnea, nausea, rash or vomiting Review of Systems Const: Denies: fever(s), chills, body aches or change in appetite Eyes: Denies: blurry vision or eye discomfort ENMT: Denies: throat pain or dental pain Card: Denies: chest pain Resp: Denies: dyspnea GI: Denies: abdominal pain, nausea, vomiting or diarrhea : Denies: dysuria Musc: Denies: neck pain or back pain Skin/Breast: Denies: rash Neuro: Reports: weakness in extremities Psych: Denies: depression Blayne/Lymph: Denies: easy bruising All/Imm: Denies: urticaria PFSH ED PFSH: Medical History Acute depression Alzheimer disease B12 deficiency Breast cancer CHF (congestive heart failure) COPD (chronic obstructive pulmonary disease) D-dimer, elevated GERD (gastroesophageal reflux disease) HTN (hypertension) Hyperlipidemia IBS (irritable bowel syndrome) Muscle spasm Rheumatoid arthritis Seasonal allergic rhinitis Tachycardia Varicose veins of left leg with edema Surgical History H/O neck surgery H/O shoulder surgery H/O wrist surgery H/O: knee surgery History of back surgery History of cholecystectomy History of ear surgery History of hysterectomy History of lumpectomy of right breast Family History Father CAD (coronary artery disease) Mother CAD (coronary artery disease) Brother CAD (coronary artery disease) Sister Cancer Other Diabetes Social History Smoking and tobacco status: former smoker Quit status (tobacco): has quit using tobacco Year quit tobacco: 1995 - 1PPD x 40 Years Alcohol intake: never Lives independently: Yes Household members: spouse Marital status: Current occupational status: retired History of recent travel: No Current gender identity: Female Physical Exam Const: COMMON NORMALS: no acute distress, patient oriented x3 and healthy appearing HENMT: COMMON NORMALS: normocephalic and atraumatic HEAD & SCALP: normocephalic and atraumatic Eye: COMMON NORMALS: Equal, round and reactive pupils present and EOMs intact bilaterally PUPIL: Yes Equal, round and reactive pupils present Neck/C-Spine: COMMON NORMALS: full ROM and supple Chest: COMMONS NORMALS: normal inspection of the chest and normal palpation of entire chest wall Resp: COMMON NORMALS: normal respiratory effort, No retractions, No use of accessory muscles and clear to auscultation bilaterally AUSCULTATION: clear to auscultation bilaterally Cardio: COMMON NORMALS: regular rate, regular rhythm and No murmurs present (Cardio) RATE: regular rate RHYTHM: regular rhythm GI: COMMON NORMALS: Normal to inspection, nondistended, normoactive bowel sounds present, Soft to palpation, non-tender and no masses PALPATION: Yes Soft to palpation Extremity: COMMON NORMALS: normal to inspection and full ROM Neuro: COMMON NORMALS: patient oriented x3, moves all extremities and no focal motor deficits Psych: COMMON NORMALS: mental status grossly normal, Normal thought process present and cooperative THOUGHT PROCESS: Normal thought process present Skin: COMMON NORMALS: no rashes or lesions noted and no wounds GENERAL SKIN EXAM: no rashes or lesions noted Course Vital Signs: Vital signs: Vital Signs Temperature 98.4 F 06/23/20 20:01 Pulse Rate 54 L 06/23/20 22:00 Respiratory Rate 20 H 06/23/20 22:00 Blood Pressure 124/53 06/23/20 22:00 Pulse Oximetry 100 06/23/20 22:00 MDM - General Adult MDM Narrative: Medical decision making narrative: Normal presents here with a period of low blood pressure. Patient has been normotensive here and has been well-appearing here. Patient's hemoglobin is decreasing rectal exam showed dark stools that was Hemoccult positive. Patient likely has an upper GI bleed. Patient given IV Protonix here and will transfuse her. I spoke to hospitalist and will admit. I also spoke to surgeon on-call who is consulted. Lab Data: Labs: Lab Results 06/23/20 06/23/20 06/23/20 Range/Units 20:02 20:02 20:02 WBC (4.0-10.0) 10^3/ uL RBC (4.1-5.3) 10^6/u L Hgb (11.5-15.3) g/dL Hct (37.0-47.0) % MCV (81-99) fL MCH (28.0-34.0) pg MCHC (30.0-36.0) g/dL RDW (12.1-15.1) % Plt Count (130-400) 10^3/c mm MPV (7.4-10.4) fL Neut % (Auto) % Lymph % (Auto) % Grady % (Auto) % Eos % (Auto) % Baso % (Auto) % Neut # (Auto) (1.8-7.7) 10^3/u L Lymph # (Auto) (0.8-4.8) 10^3/u L Grady # (Auto) (0.2-0.9) 10^3/u L Eos # (Auto) (0.0-0.8) 10^3/u L Baso # (Auto) (0.0-0.1) 10^3/u L Nucleated RBC % (a uto) % Nucleated RBCs # /100WBC PT 15.50 H (12.1-14.9) SECO NDS INR 1.19 (0.8-1.2) Sodium 138 (136-145) mmol/L Potassium 4.5 (3.5-5.1) mmol/L Chloride 101 (98-107) mmol/L Carbon Dioxide 31 H (22-29) mmol/L Anion Gap 10.5 (5-19) BUN 20 (8-23) mg/dL Creatinine 1.2 H (0.5-0.9) mg/dL GFR Calculation Not Reportable Glucose 140 H (65-115) mg/dL Calculated Osmolal ity 291 (285-295) mOsm/k g Lactate (0.5-2.2) mmol/L Calcium 8.8 (8.5-10.5) mg/dL Total Bilirubin 0.3 (0.15-1.2) mg/dL AST 18 (0-32) U/L ALT 8 (0-33) U/L Alkaline Phosphata se 70 (35-105) IU/L Troponin T Baselin e 21 H (0-10) ng/L NT-Pro-B Natriuret Pep 341 (0-450) pg/mL Total Protein 5.1 L (6.6-8.7) g/dL Albumin 3.5 (3.5-5.2) g/dL Globulin 1.6 (1.3-4.6) g/dL 06/23/20 06/23/20 Range/Units 20:02 21:10 WBC 5.7 (4.0-10.0) 10^3/ uL RBC 2.56 L (4.1-5.3) 10^6/u L Hgb 7.2 L (11.5-15.3) g/dL Hct 24.8 L (37.0-47.0) % MCV 96.9 (81-99) fL MCH 28.1 (28.0-34.0) pg MCHC 29.0 L (30.0-36.0) g/dL RDW 14.0 (12.1-15.1) % Plt Count 335 (130-400) 10^3/c mm MPV 8.8 (7.4-10.4) fL Neut % (Auto) 61.1 % Lymph % (Auto) 16.5 % [place]ady % (Auto) 15.2 % Eos % (Auto) 5.5 % Baso % (Auto) 1.2 % Neut # (Auto) 3.45 (1.8-7.7) 10^3/u L Lymph # (Auto) 0.9 (0.8-4.8) 10^3/u L [place]ady # (Auto) 0.9 (0.2-0.9) 10^3/u L Eos # (Auto) 0.3 (0.0-0.8) 10^3/u L Baso # (Auto) 0.1 (0.0-0.1) 10^3/u L Nucleated RBC % (a uto) 0.5 % Nucleated RBCs # 0.0 /100WBC PT (12.1-14.9) SECO NDS INR (0.8-1.2) Sodium (136-145) mmol/L Potassium (3.5-5.1) mmol/L Chloride (98-107) mmol/L Carbon Dioxide (22-29) mmol/L Anion Gap (5-19) BUN (8-23) mg/dL Creatinine (0.5-0.9) mg/dL GFR Calculation Glucose (65-115) mg/dL Calculated Osmolal ity (285-295) mOsm/k g Lactate 0.6 (0.5-2.2) mmol/L Calcium (8.5-10.5) mg/dL Total Bilirubin (0.15-1.2) mg/dL AST (0-32) U/L ALT (0-33) U/L Alkaline Phosphata se (35-105) IU/L Troponin T Baselin e (0-10) ng/L NT-Pro-B Natriuret Pep (0-450) pg/mL Total Protein (6.6-8.7) g/dL Albumin (3.5-5.2) g/dL Globulin (1.3-4.6) g/dL Imaging Data^: CXR: Attestation: I personally reviewed and interpreted this imaging study as follows: My impression: no acute abnormality EKG Data^: EKG 1: Attestation: I personally reviewed and interpreted this EKG as follows: EKG interpretation date: 06/23/20 EKG interpretation time: 20:03 Interpretation: sinus halima hr [address] or t wave abnormalities qrs 94 qtc 433 Discharge Plan Discharge Patient Disposition: Admitted As Inpatient Admit Provider: Chelsey Simpson Clinical Impression: GI bleed Pulmonary emboli Qualifiers: Pulmonary embolism type: unspecified Condition: Stable Referrals: Zhang Gamboa MD [Primary Care Provider] - Coding Level of Care Code ED Guest Relations Coordinator for Chg Fwd Exam Comprehensive
[2020-06-23] MEDS: sodium chloride 0.9% 1,000 ML 999 ML IV (20:11)
[2020-06-23 20:27] LABS: INR 1.19 (0.8-1.2)
[2020-06-23 21:04] LABS: Troponin(5th) Baseline 21 ng/L (0-10)
[2020-06-23 21:13] LABS: Alanine Aminotransferase 8 U/L (0-33); Albumin Level 3.5 g/dL (3.5-5.2); Alkaline Phosphatase 70 IU/L (35-105); Anion Gap 10.5 (5-19); Aspartate Amino Transferase 18 U/L (0-32); Blood Urea Nitrogen 20 mg/dL (8-23); Calcium 8.8 mg/dL (8.5-10.5); Carbon Dioxide 31 mmol/L (22-29); Chloride 101 mmol/L (98-107); Globulin 1.6 g/dL (1.3-4.6); Glucose 140 mg/dL (65-115); NT Pro B Type Natriuretic Pept 341 pg/mL (0-450); Osmolality Calculated 291 mOsm/kg (285-295); Potassium 4.5 mmol/L (3.5-5.1); Sodium 138 mmol/L (136-145); Total Bilirubin 0.3 mg/dL (0.15-1.2); Total Protein 5.1 g/dL (6.6-8.7)
[2020-06-23 21:37] LABS: Lactate (Lactic Acid level) 0.6 mmol/L (0.5-2.2)
[2020-06-23 21:43] LABS: Basophils # 0.1 10^3/uL (0.0-0.1); Basophils % 1.2 %; Eosinophils # 0.3 10^3/uL (0.0-0.8); Eosinophils % 5.5 %; Hematocrit 24.8 % (37.0-47.0); Hemoglobin 7.2 g/dL (11.5-15.3); Lymphocytes # 0.9 10^3/uL (0.8-4.8); Lymphocytes % 16.5 %; Mean Corpuscular Hemoglobin 28.1 pg (28.0-34.0); Mean Corpuscular Volume 96.9 fL (81-99); Mean Platelet Volume 8.8 fL (7.4-10.4); Monocytes # 0.9 10^3/uL (0.2-0.9); Monocytes % 15.2 %; Neutrophils # 3.45 10^3/uL (1.8-7.7); Neutrophils % 61.1 %; Nucleated Red Blood Cells % 0.5 %; Platelet Count 335 10^3/cmm (130-400); Red Blood Count 2.56 10^6/uL (4.1-5.3); White Blood Count 5.7 10^3/uL (4.0-10.0)
--- NOTE | 2020-06-23 21:58 | P.HP_ITS ---
Providers/Chief Complaint Primary Care Provider: Zhang Gamboa MD Chief Complaint: hypotension History of Present Illness Maddison Jenkins is a 75 year old female who is taking Eliquis for DVT/PE presented with chief complaint of generalized weakness and shortness of breath. Patient is stating that at baseline she is active for age, for last few months she has been noticing dark stools at the same time she has been taking iron supplementation as well, her last colonoscopy did not show any malignant lesions or ulcers, she has been taking Eliquis regularly, no recent nausea, vomiting, chest pain, hematemesis, hematuria, hemoptysis. No history of liver cirrhosis or variceal bleed. She decided to come to the hospital for worsening shortness of breath on mild exertion and generalized fatigue. When EMS arrived her blood pressure was in low 80s, she was given 1 dose of epi by the EMS, at the time of arrival in the ER her blood pressure was 146/58, EKG unremarkable, chronic kidney disease, troponin not significantly high, drop in hemoglobin to 7.2, Last hemoglobin 10.4 06/07/2020 Dr. Spaulding consulted, currently getting blood transfusion, Protonix 80 IV given in the ER, hemodynamically stable at the time of my evaluation, at the bedside Review of Systems 2 Const: Reports: chills, body aches, fatigue and malaise; Denies: fever(s) Eyes: Denies: change in vision ENMT: Denies: throat pain or odynophagia Card: Reports: dyspnea on exertion; Denies: chest pain Resp: Reports: dyspnea GI: Reports: abdominal pain and nausea; Denies: vomiting, diarrhea or constipation : Denies: flank pain Musc: Denies: neck pain Skin/Breast: Denies: rash Neuro: Denies: headache(s) Psych: Denies: anxiety Endo: Denies: polyuria Blayne/Lymph: Denies: easy bruising All/Imm: Denies: urticaria Medications/Allergies Home Medications Medication Instructions Recorded Confirmed Last Taken Type citalopram 20 mg tablet 20 mg PO DAILY 09/09/19 06/03/20 06/02/20 History donepezil 10 mg tablet 10 mg PO DAILY 09/09/19 06/03/20 06/02/20 History ferrous sulfate 324 mg (65 mg 324 mg PO DAILY tab 0106/03/20 06/02/20 History iron) tablet,delayed release gabapentin 300 mg capsule 300 mg PO TID 09/09/19 06/03/20 06/02/20 History pantoprazole 40 mg tablet,delayed 40 mg PO BID tab 09/09/19 06/03/20 06/02/20 History release potassium chloride 20 mEq 20 meq PO DAILY tab 09/09/19 06/03/20 06/02/20 History tablet,extended release(part/cryst) rosuvastatin 10 mg tablet 10 mg PO ONCE 09/09/19 06/03/20 06/02/20 History tizanidine 4 mg capsule 4 mg PO BEDTIME PRN cap 09/09/19 06/03/20 06/02/20 History aspirin 81 mg tablet,delayed 81 mg PO DAILY 12/10/19 06/03/20 06/02/20 History release fluticasone propionate 50 1 spray INTRANASAL BID 12/10/19 06/03/20 06/02/20 History mcg/actuation nasal spray,suspension magnesium oxide 500 mg capsule 500 mg PO DAILY 12/10/19 06/03/20 06/02/20 History mecobalamin (vitamin B12) 1,000 1,000 mcg PO DAILY tab 12/10/19 06/03/20 06/02/20 History mcg chewable tablet albuterol sulfate 2.5 mg INHALATION BID PRN ml 03/10/20 06/03/20 06/03/20 History anastrozole 1 mg tablet 1 mg PO DAILY tab 03/31/20 06/03/20 06/02/20 History fluticasone fur. 100 mcg-umeclid 1 inh INHALATION Q24H 90 Days #60 04/28/20 06/03/20 06/02/20 Rx 62.5 mcg-vilant 25 mcg each inhalat.powder dicyclomine 20 mg PO BID 06/03/20 06/03/20 06/02/20 History apixaban [Eliquis DVT-PE Treat 30D See Rx Instructions .ROUTE 06/07/20 Unknown Rx Start] .COMPLEX #74 each Allergies Allergy/AdvReac Type Severity Reaction Status Date / Time No Known Allergies Allergy Verified 06/23/20 20:07 PFSH Acute 2 PFSH: Medical History Acute depression Alzheimer disease B12 deficiency Bradycardia Patient states her heart rate runs in 40s to 50s at home Breast cancer CHF (congestive heart failure) Chronic respiratory failure with hypoxia and hypercapnia COPD (chronic obstructive pulmonary disease) COPD (chronic obstructive pulmonary disease) D-dimer, elevated GERD (gastroesophageal reflux disease) Hematoma Small complex fluid lesion adjacent to superficial thrombophlebitis in the left calf, 26 x 10 x 24 mm, HTN (hypertension) Hyperlipidemia IBS (irritable bowel syndrome) Leg swelling Muscle spasm Obstructive sleep apnea Pulmonary emboli Rheumatoid arthritis Seasonal allergic rhinitis Superficial thrombophlebitis Tachycardia Varicose veins of left leg with edema Surgical History H/O neck surgery H/O shoulder surgery H/O wrist surgery H/O: knee surgery History of back surgery History of cholecystectomy History of ear surgery History of hysterectomy History of lumpectomy of right breast Family History Father CAD (coronary artery disease) Mother CAD (coronary artery disease) Brother CAD (coronary artery disease) Sister Cancer Other Diabetes Social History Smoking and tobacco status: former smoker Quit status (tobacco): has quit using tobacco Year quit tobacco: 1995 - 1PPD x 40 Years Alcohol intake: never Lives independently: Yes Household members: spouse Marital status: Current occupational status: retired History of recent travel: No Current gender identity: Female Vitals/I&O/Wt Last Vital Signs Temp 98.4 F 06/23/20 20:01 Pulse 54 L 06/23/20 21:25 Resp 21 H 06/23/20 21:25 BP 125/47 06/23/20 21:25 Pulse Ox 100 06/23/20 21:25 Weight last 48 hrs Weight 77.111 kg Physical Exam Narrative: EXAM NARRATIVE: elderly female currently laying comfortably in her bed Saturating well on 2 L nasal cannula Normal hemodynamics Sinus rhythm In the ER FOBT positive, black stools Rectal exam showed black tarry stools EOMI, PERRLA Awake alert oriented x3 GCS 15 Abdomen soft nontender mild tenderness at left quadrant area, not septic at the moment No signs of peritonitis S1, S2 No active signs of heart failure or dehydration Lungs are clear to auscultation Lower extremity asymmetrical swelling left greater than right Appropriate mood and affect Data : 06/23/20 20:02 06/23/20 20:02 A&P Assessment and plan (1) GI bleed: Status: Acute (2) Chronic kidney disease: Status: Acute (3) Bradycardia: Status: Acute Additional A&P Information Acute symptomatic anemia Normocytic anemia, Patient is using anticoagulant agent for pulmonary embolism Left calf hematoma on previous admission, no acute pain or increase in swelling In the ER rectal exam revealed black tarry stool, FOBT positive, patient is endorsing black stool since last few months Blood pressure currently stable was given epinephrine by the EMS at home her blood pressure was in low 50s We will get 2 units of PRBC, general surgery consulted for EGD Hold Eliquis, Sinus bradycardia Chronic changes on EKG, patient is stating that she normally runs in the low 50s at home, will monitor overnight, at the time of my evaluation heart rate has been fluctuating between 59-65 normal blood pressure She was awake alert without any symptom, not on any AV emiliano blocking agent Chronic kidney disease, creatinine at baseline, no acute exacerbation Weakness and lethargy secondary to anemia Getting blood transfusion Goals of care discussed with the patient and her , DNR/DNI DVT prophylaxis on hold, active GI bleed We will get left lower extremity ultrasound as well to evaluate hematoma that was found on previous admission, N.p.o. Attestations Medical Necessity Statement*: Anticipating discharge in less than 48 hours currently need EGD for diagnostic purposes for upper GI bleed, black tarry stool and acute normocytic anemia Time Spent in Patient Care: (>than 50% of time spent in counselling and/or direct pt care on unit) . 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
--- NOTE | 2020-06-23 22:03 | ECG_ITS ---
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 Measurements Intervals [place] Rate: 59 P: 31 ME: 180 QRS: 71 QRSD: 127 T: 58 QT: 451 QTc: 448 Interpretive Statements SINUS BRADYCARDIA MODERATE INTRAVENTRICULAR CONDUCTION DELAY [110+ ms QRS DURATION] Compared to ECG 06/07/2020 18:25:49 Intraventricular conduction delay now present Electronically Signed On 06-24-2020 20:36:15 CDT by Lacy Santos M.D. [id number]
[2020-06-23] MEDS: pantoprazole 40 mg SDV 80 MG IVP (22:13)
[2020-06-23 22:49] LABS: Troponin 5 2HR 17.32 ng/L (0-10)
[2020-06-23 22:50] LABS: Troponin 5 2HR Delta -3.68 ABS# (0-10)
[2020-06-24] VITALS (22 sets, daily range): BP systolic 126–175; BP diastolic 53–79; PULSE 50–84; RESP 16–20; TEMP 35.9–36.6; O2SAT 93–100
[2020-06-24] MEDS: sodium chloride 0.9% (100 ml) 100 ML 50 ML ×2 (00:05→04:31)
[2020-06-24] MEDS: acetaminophen 325 mg Tablet PO (04:31)
--- NOTE | 2020-06-24 06:14 | PM.CONSULT ---
Providers/Reason For Consult Consulting Physican/Specialty*: Ed Spaulding MD Reason for Consult*: GI bleed Attending Physician: Chelsey Simpson MD Primary Care Provider: Zhang Gamboa MD History of Present Illness History of Present Illness Chief Complaint: Dark stool History of present illness: Ms Maddison Jenkins is a 75 year old female recently diagnosed by DVT/PE CTA was done recently this month and showed: IMPRESSION: 1. Multiple bilateral pulmonary emboli including a nonocclusive saddle embolus at the distal aspect of the left main pulmonary artery extending into 1st order branches. 2. Right heart strain. 3. There are centrilobular emphysematous changes in the bilateral lungs. Venous duplex lower extremity: IMPRESSION: 1. Apparent occluding thrombus in a relatively short segment of the lower left greater saphenous vein,(a superficial vein), just above the ankle. 2. Mildly complex 28 x 10 x 26 mm fluid collection adjacent to this region. While nonspecific, possibilities would include hematoma or abscess. Please correlate clinically. 3. No evidence of acute left lower extremity deep venous thrombosis. Patient reports having dark stools for the past few months yet she has been taking iron supplements.Had a previous EGD remotely and was normal and colonoscopy was done back in September 2018 that showed normal findings. Patient has been on Eliquis and came yesterday to the ER with hypotension per EMS and later on her blood pressure normalized.Patient hemoglobin at admission 7.2 and that dropped from 10.4 back on 06/07/2020. General surgery was consulted for further evaluation and potential intervention Review of Systems General: Reports: 10 or more systems reviewed and unremarkable except in HPI and below Meds/Allergies Home Medications and Allergies Home Medications Medication Instructions Recorded Confirmed Last Taken Type citalopram 20 mg tablet 20 mg PO DAILY 09/09/19 06/24/20 06/23/20 History donepezil 10 mg tablet 10 mg PO DAILY 09/09/19 06/24/20 06/23/20 History ferrous sulfate 324 mg (65 mg 324 mg PO DAILY tab 09/09/19 06/24/20 06/23/20 History iron) tablet,delayed release gabapentin 300 mg capsule 300 mg PO BID 09/09/19 06/24/20 06/23/20 History pantoprazole 40 mg tablet,delayed 40 mg PO BID tab 0106/24/20 06/23/20 History release potassium chloride 20 mEq 20 meq PO DAILY tab 09/09/19 06/24/20 06/23/20 History tablet,extended release(part/cryst) rosuvastatin 10 mg tablet 10 mg PO ONCE 09/09/19 06/24/20 06/23/20 History tizanidine 4 mg capsule 4 mg PO BEDTIME PRN cap 09/09/19 06/24/20 06/23/20 History aspirin 81 mg tablet,delayed 81 mg PO DAILY 12/10/19 06/24/20 06/23/20 History release fluticasone propionate 50 1 spray INTRANASAL BID 12/10/19 06/24/20 06/23/20 History mcg/actuation nasal spray,suspension magnesium oxide 500 mg capsule 500 mg PO DAILY 12/10/19 06/24/20 06/23/20 History mecobalamin (vitamin B12) 1,000 1,000 mcg PO DAILY tab 12/10/19 06/24/20 06/23/20 History mcg chewable tablet albuterol sulfate 2.5 mg INHALATION BID PRN ml 03/10/20 06/24/20 06/23/20 History anastrozole 1 mg tablet 1 mg PO DAILY tab 03/31/20 06/24/20 06/23/20 History fluticasone fur. 100 mcg-umeclid 1 inh INHALATION Q24H 90 Days #60 04/28/20 06/24/20 06/23/20 Rx 62.5 mcg-vilant 25 mcg each inhalat.powder dicyclomine 20 mg PO BID 06/03/20 06/24/20 06/23/20 History apixaban [Eliquis DVT-PE Treat 30D See Rx Instructions .ROUTE 06/07/20 06/24/20 06/23/20 Rx Start] .COMPLEX #74 each Allergies Allergy/AdvReac Type Severity Reaction Status Date / Time No Known Allergies Allergy Verified 06/24/20 06:54 Current Medications Current Medications Generic Name Dose Route Start Last Admin Trade Name Freq PRN Reason Stop Dose Admin Acetaminophen 325 - 650 mg 06/24/20 03:46 06/24/20 04:31 Tylenol PO 650 mg Q4H PRN Administration MILD PAIN OR INCREASE TEMP PFSH Acute PFSH: Medical History Acute depression Alzheimer disease B12 deficiency Bradycardia Patient states her heart rate runs in 40s to 50s at home Breast cancer CHF (congestive heart failure) Chronic respiratory failure with hypoxia and hypercapnia COPD (chronic obstructive pulmonary disease) COPD (chronic obstructive pulmonary disease) D-dimer, elevated GERD (gastroesophageal reflux disease) Hematoma Small complex fluid lesion adjacent to superficial thrombophlebitis in the left calf, 26 x 10 x 24 mm, HTN (hypertension) Hyperlipidemia IBS (irritable bowel syndrome) Leg swelling Muscle spasm Obstructive sleep apnea Pulmonary emboli Rheumatoid arthritis Seasonal allergic rhinitis Superficial thrombophlebitis Tachycardia Varicose veins of left leg with edema Surgical History H/O neck surgery H/O shoulder surgery H/O wrist surgery H/O: knee surgery History of back surgery History of cholecystectomy History of ear surgery History of hysterectomy History of lumpectomy of right breast Family History Father CAD (coronary artery disease) Mother CAD (coronary artery disease) Brother CAD (coronary artery disease) Sister Cancer Other Diabetes Social History Smoking and tobacco status: former smoker Quit status (tobacco): has quit using tobacco Year quit tobacco: 1995 - PD x 40 Years Alcohol intake: never Lives independently: Yes Household members: spouse Marital status: Current occupational status: retired History of recent travel: No Current gender identity: Female Vitals/I&O/Wt Last Vital Signs Temp 97.1 F L 06/24/20 04:43 Pulse 53 L 06/24/20 04:43 Resp 20 H 06/24/20 04:43 BP 138/72 06/24/20 04:43 Pulse Ox 100 06/24/20 04:43 06/23/20 06/23/20 06/24/20 14:59 22:59 06:59 Intake Total 1000 / 1000 400 / 1400 Balance 1000 / 1000 400 / 1400 Weight last 48 hrs Weight 170 lb Physical Exam Narrative: EXAM NARRATIVE: Patient is conscious alert oriented X3 BMI 29 Head and neck examination PERRLA no masses no cervical lymphadenopathy no jaundice Cardiac examination audible S1-S2 no murmurs no gallops no arrhythmias Chest is clear bilateral,abscence of Rhonchi or wheezes,no surgical emphysema Abdomen nontender except slightly towards the left side nondistended soft no organomegaly guarding or rigidity/no signs of peritonitis A&P Assessment and plan (1) GI bleed: After history taking physical examination and reviewing the chart I did discuss with the patient about the potential risks benefits, alternatives and indications for potential diagnostic EGD with possible biopsy. Certainly patient is at higher risk given the fact that she has been recently diagnosed with pulmonary embolism and DVT. Further proceeding with a diagnostic EGD would be based on further discussion with the medical hospitalist team versus conservative measures. Please call for any questions or concerns Thank you for consulting general surgery to participate taking care Ms. Jenkins Status: Acute Consult Attestations Medical Necessity Statement: Patient requiring hospitalization for blood transfusion and closer monitoring. Time Spent in Patient Care: (>than 50% of time spent in counselling and/or direct pt care on unit). 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
[2020-06-24 06:23] LABS: Ferritin 38 ng/mL (15-150); Iron 26 ug/dL (37-145); Total Iron Binding Capacity 321 mcg/dl; Unsaturated Iron Binding 295 ug/dL (112-347)
[2020-06-24] MEDS: pantoprazole 40 mg SDV IVP ×2 (08:43→18:08)
[2020-06-24] MEDS: morphine 4 mg/mL SDV 1 mL 1 MG IVP (09:01)
[2020-06-24] MEDS: dextrose 5%-sod chloride 0.45% 1,000 ML 30 ML IV (09:09)
--- NOTE | 2020-06-24 09:30 | PC.CHAP ---
Pastoral Care Encounter/Spiritual Assessment Type of Contact [] Declined cigarette making machine catcher visit [] Patient/Family/Request visit [] Outpatient visit [] Follow-up visit [] Physician referral [] Code/Alert [] Routine visit [] Staff referral [] Actively dying [x] Patient sleeping [] Family support [] [] Out of room [] Palliative care [] [] Receiving care in room [] Pre-surgical visit [] Trauma [] Long length of stay [] ICU visit [] Other: Relational/Emotional Strength [] Patient feels connected with others/family/visitors/staff [] Distress [] Loneliness/isolation [] Abandonment Spirituality of Patient [] Person of Deepali [] Attends Muslim of their Deepali [] Believes in Prayer [] Reads Bible or Jew materials [] There are Spiritual issues to be addressed Network Account Manager Interventions [] Prayer [] Active listening [] Non-anxious presence [] Spiritual/emotional support [] Crisis/trauma care [] Spiritual counseling [] Bereavement support [] Provided bereavement packet [] Provided Bible/devotional materials [] Provided toy/stuffed animal, coloring book to patient or family member [] Provided Communion [] Anointing/[place] [] Salvation [] Completed spiritual assessment [] Other: Impact on Illness or Injury [] Angry [] Fearful [] Anxious [] Often cries [] Exhaustion [] Unable to work [] Unable to attend hoahaoism [] Unable to walk/stand [] Unable to read [] Unable to drive [] Unable to eat/drink [] Unable to sleep [] Unable to be with family [] Patient intubated [] Other: Summary Time spent with patient
[2020-06-24 10:21] LABS: Basophils # 0.1 10^3/uL (0.0-0.1); Basophils % 1.2 %; Eosinophils # 0.3 10^3/uL (0.0-0.8); Eosinophils % 5.3 %; Hematocrit 31.9 % (37.0-47.0); Hemoglobin 9.6 g/dL (11.5-15.3); Lymphocytes # 0.8 10^3/uL (0.8-4.8); Lymphocytes % 16.3 %; Mean Corpuscular HGB Conc 30.1 g/dL (30.0-36.0); Mean Corpuscular Hemoglobin 28.5 pg (28.0-34.0); Mean Corpuscular Volume 94.7 fL (81-99); Mean Platelet Volume 8.8 fL (7.4-10.4); Monocytes # 0.6 10^3/uL (0.2-0.9); Monocytes % 12.6 %; Neutrophils # 3.22 10^3/uL (1.8-7.7); Neutrophils % 63.4 %; Nucleated Red Blood Cells % 0.6 %; Platelet Count 283 10^3/cmm (130-400); Red Blood Count 3.37 10^6/uL (4.1-5.3); Red Cell Distribution Width 14.8 % (12.1-15.1); White Blood Count 5.1 10^3/uL (4.0-10.0)
--- NOTE | 2020-06-24 10:27 | CTR_ITS ---
PROCEDURE INFORMATION: Exam: CT Abdomen And Pelvis Without Contrast Exam date and time: 06/24/2020 3:34 PM Age: 75 years old Clinical indication: Abdominal pain; Localized; Other: Mid; Prior surgery; Surgery type: Gb, hyst, back; Additional info: Bilateral pe, anemia, black stools TECHNIQUE: Imaging protocol: Computed tomography of the abdomen and pelvis without contrast. Radiation optimization: All CT scans at this facility use at least one of these dose optimization techniques: automated exposure control; mA and/or kV adjustment per patient size (includes targeted exams where dose is matched to clinical indication); or iterative reconstruction. COMPARISON: CT Abdomen/Pelvis Renal [id number] 04/16/2017 10:11 AM RADIATION DOSE METRICS: Total DLP (mGy-cm): 762.57 FINDINGS: Liver: Normal. No mass. Gallbladder and bile ducts: Prior cholecystectomy. Mild biliary ductal dilatation, unchanged. Pancreas: Normal. No ductal dilation. Spleen: Normal. No splenomegaly. Adrenals: Normal. No mass. Kidneys and ureters: Small left renal calcifications, unchanged. No hydronephrosis. Stomach and bowel: Scattered colonic diverticula. No evidence for acute diverticulitis. Appendix: No evidence of appendicitis. Intraperitoneal space: Unremarkable. No free air. No significant fluid collection. Vasculature: Moderate aortic atherosclerotic calcification, chronic. Lymph nodes: Unremarkable. No enlarged lymph nodes. Urinary bladder: Unremarkable as visualized. Reproductive: Prior hysterectomy. Bones/joints: Bones appear demineralized. Prior lumbar spine surgery with L2, L3 and L4 transpedicular screw and posterior kady fixation hardware in place. Soft tissues: 3 cm uncomplicated fat containing left inguinal hernia. CT/CT abdomen pelvis wo con [id number] IMPRESSION: 1.) No acute process evident. 2.) Chronic findings as described above. Radiation Dose CTDIVOL = (mGy): DLP = 762.57 (mGy-cm)
[2020-06-24 10:40] LABS: Anion Gap 10.5 (5-19); Blood Urea Nitrogen 15 mg/dL (8-23); Calcium 8.2 mg/dL (8.5-10.5); Carbon Dioxide 29 mmol/L (22-29); Chloride 106 mmol/L (98-107); Glucose 104 mg/dL (65-115); Osmolality Calculated 293 mOsm/kg (285-295); Potassium 4.5 mmol/L (3.5-5.1); Sodium 141 mmol/L (136-145)
--- NOTE | 2020-06-24 11:18 | USCV_ITS ---
Maddison Jenkins Age: 75 Gender: F : 1945 Exam Date: 06/24/2020 11:38 Ordering Phys: Herman Kyle MD Technologist: Sixto Moscoso [place]am Location[place] [facility] [place]: HX DVT LT LEG HISTORY: HX DVT IN LT POP PROCEDURES: Venous duplex imaging was performed in bilateral lower extremities. The following venous structures were evaluated: common femoral vein, profunda vein, proximal portion of the greater saphenous vein, superficial femoral vein, and the popliteal vein. In addition, the posterior tibial and peroneal trunk were evaluated. FINDINGS: Normal 2-D Doppler and augmentation and compressibility throughout the lower extremity venous structures. Additional imaging through the proximal calf veins also reveals no thrombus. Limited evaluation of the greater saphenous vein is patent with no thrombus.. CONCLUSIONS No evidence of right lower extremity DVT. No evidence of left lower extremity DVT. Esteban Goldsmith MD (Electronically Signed) Final Date: 24 June 2020 16:30 S
[2020-06-24] MEDS: sucralfate 1 gm Tablet PO ×2 (12:23→18:08)
--- NOTE | 2020-06-24 13:13 | P.PN_ITS ---
Subjective Subjective: Interval history: This morning patient was examined, she tells me that ever since her hospital discharge, she continued to have episodes of shortness of breath, fatigue, malaise, presyncopal and syncopal episodes, no chest pain, no abdominal pain, she has history of breast cancer status post lumpectomy and radiation, she has following with Dr. Collins, is on anastrozole, she has not had a EGD or colonoscopy, she says that she has chronic dark stools given the iron tablets she takes, I spoke to patient that she likely has a GI bleed related to Eliquis, we have stopped the Eliquis, her hemoglobin stabilized at 9.6, and we will monitor hemoglobin Currently, there is no plans for EGD, unless she has an acute GI bleed with hemorrhagic shock. We are worried about is risks and benefits, currently given her history of extensive pulmonary emboli and right heart strain, there is significant risk of the procedure anesthesia, significant morbidity and mortality. Obviously the benefit would be to figure out the source of bleeding. But what we have elected for in consultation with general surgery is a conservative approach, monitoring her hemoglobin monitoring of blood pressure, monitoring her clinical status, monitor for bloody or black stools. And if she remained stable for the next 24 to 48 hours, the plan would be for her to be discharged home with a close follow-up with general surgery as outpatient, for decision on when to do an EGD or colonoscopy. She voiced understanding, all questions answered, agreed to proceed with the plan. However the significant concern is her risk of recurrent thromboembolism, significant morbidity and mortality associated, sudden . Unfortunately we do not have a lot of options, placing her back on anticoagulation puts her at risk of life-threatening bleeding. Thus the only reasonable option would be to place an IVC filter. I have consulted Dr. Jameson for placement of filter, he agreed that this would be the best course of action, the surgery has been tentatively planned for Saturday. Discuss briefly IVC filter placement, voiced understanding, all questions answered, agreed to proceed with plan I advised patient that currently we are holding all anticoagulation, at any point she does run the risk of recurrent thromboembolism, currently her risk of GI bleeding is higher than recurrent thromboembolism, but that does not mean no risk, there is significant risk, and this is why we are trying to expedite her IVC filter placement. She voiced understanding, all questions answered. Patient has developed significant pulmonary emboli, etiology is unclear, however given her history of breast cancer with lumpectomy, patient was advised to follow with Dr. Collins for repeat mammography, hopefully she can have colonoscopy at some point, she was complaining of abdominal pain, so so I will order a CT scan of the abdomen. In addition she has been complaining of new onset headaches, with associated blurry vision, her CT head was negative for intracranial metastasis. But if her headaches persist, will she will need an MRI imaging. Vitals/I&O/Wt Last Vital Signs Temp 97.3 F L 06/24/20 12:00 Pulse 53 L 06/24/20 12:00 Resp 18 06/24/20 12:00 BP 158/69 06/24/20 12:00 Pulse Ox 98 06/24/20 12:00 06/23/20 06/24/20 06/24/20 22:59 06:59 14:59 Intake Total 1000 / 1000 400 / 1400 350 / 350 Balance 1000 / 1000 400 / 1400 350 / 350 Weight last 48 hrs Weight 77.111 kg Physical Exam Const: COMMON NORMALS: no acute distress and patient oriented x3 HENMT: COMMON NORMALS: normocephalic HEAD & SCALP: normocephalic Neck/C-Spine: COMMON NORMALS: no JVD Resp: COMMON NORMALS: normal respiratory effort, No retractions, No use of accessory muscles and clear to auscultation bilaterally AUSCULTATION: clear to auscultation bilaterally Cardio: COMMON NORMALS: no JVD, regular rate, regular rhythm, S1 normal heart sound present and S2 normal heart sound present RATE: regular rate RHYTHM: regular rhythm HEART SOUNDS: S1 normal heart sound present and S2 normal heart sound present GI: COMMON NORMALS: Normal to inspection, nondistended, normoactive bowel sounds present, Soft to palpation, non-tender, No hepatosplenomegaly present, no masses and no bruits PALPATION: Yes Soft to palpation and Yes No hepatosplenomegaly present Extremity: COMMON NORMALS: capillary refill normal, no clubbing, cyanosis or edema, no calf tenderness and no pedal edema Neuro: COMMON NORMALS: patient oriented x3 Psych: COMMON NORMALS: mental status grossly normal Data : 06/24/20 10:09 06/24/20 10:09 A&P Assessment and plan (1) GI bleed: -Currently hemoglobin 9.5, status post 2 units PRBC -Monitor hemoglobin closely, repeat hemoglobin at 6, monitor hemodynamics, monitor for bloody or black stools -Currently blood pressure stable, but was given epinephrine by EMS, blood pressure was in the low 50s -Currently no plans for EGD or colonoscopy given significant risks associated with procedure in light of her pulmonary emboli and right heart strain, however if she were to have worsening bleeding, hemodynamic compromise, hemorrhagic shock then we would have to emergently proceed understanding risks -General surgery consulted -Patient's daughter was updated Status: Acute (2) Chronic kidney disease: Status: Acute (3) Bradycardia: -Sinus bradycardia, continue telemetry monitoring, monitor blood pressure, hold all AV emiliano blocking agents Status: Acute (4) Left leg DVT: -We will do bilateral lower extremity ultrasounds Status: Acute (5) Pulmonary emboli: -Multiple bilateral pulmonary emboli including a nonocclusive saddle embolus at the distal aspect of the left main pulmonary artery extending into 1st order branches. Right heart strain. -Was not a candidate for thrombectomy procedure, given risk of bleeding -Anticoagulated with Eliquis -Now with GI bleed secondary to Eliquis, Eliquis on hold -Dr. Jameson from general cardiothoracic surgery consulted -Plan on IVC filter on Saturday, risks and benefits discussed, agreed to proceed Status: Acute Qualifiers: Pulmonary embolism type: unspecified (6) Breast cancer: -History of infiltrating ductal carcinoma right breast, status post lumpectomy, radiation therapy, on anastrozole -Given history of unprovoked pulmonary emboli, will need to follow-up with Dr. Collins for repeat mammography, eventually will need a colonoscopy, complains of abdominal pain will do a CT scan of the abdomen Status: Acute Additional A&P Information Chronic kidney disease, creatinine at baseline, no acute exacerbation Weakness and lethargy secondary to anemia Getting blood transfusion Goals of care discussed with the patient and her , DNR/DNI DVT prophylaxis on hold,scd active GI bleed cl liquid diet Attestations Medical Necessity Statement*: Patient requires hospitalization for GI bleed,, anemia, Coding Level of Care Code Acute [employer] for [facility] Diagnoses GI bleed K92.2 Chronic kidney disease N18.9 Bradycardia R00.1 Left leg DVT I82.402 Pulmonary emboli I26.99 Pulmonary embolism type: unspecified Breast cancer C50.915
[2020-06-24] MEDS: amoxicillin-clav 875-125 mg Tablet 1 TAB PO (18:08)
[2020-06-24 19:14] LABS: Basophils # 0.1 10^3/uL (0.0-0.1); Basophils % 1.2 %; Eosinophils # 0.3 10^3/uL (0.0-0.8); Eosinophils % 5.4 %; Hematocrit 31.2 % (37.0-47.0); Hemoglobin 9.4 g/dL (11.5-15.3); Lymphocytes # 0.8 10^3/uL (0.8-4.8); Lymphocytes % 13.1 %; Mean Corpuscular HGB Conc 30.1 g/dL (30.0-36.0); Mean Corpuscular Hemoglobin 28.4 pg (28.0-34.0); Mean Corpuscular Volume 94.3 fL (81-99); Mean Platelet Volume 8.7 fL (7.4-10.4); Monocytes # 0.8 10^3/uL (0.2-0.9); Monocytes % 13.8 %; Neutrophils % 65.8 %; Nucleated Red Blood Cells % 0.3 %; Platelet Count 286 10^3/cmm (130-400); Red Blood Count 3.31 10^6/uL (4.1-5.3); White Blood Count 5.8 10^3/uL (4.0-10.0)
[2020-06-25] VITALS: BP 132/63; PULSE 59; RESP 17; TEMP 36.6; O2SAT 97
[2020-06-25 03:22] VITALS: BP 144/55; PULSE 59; RESP 18; TEMP 36.5; O2SAT 96
[2020-06-25] MEDS: sucralfate 1 gm Tablet PO (06:00)
[2020-06-25] MEDS: dextrose 5%-sod chloride 0.45% 1,000 ML 30 ML IV (06:00)
[2020-06-25] MEDS: acetaminophen 325 mg Tablet PO (06:03)
[2020-06-25 06:53] LABS: Basophils # 0.1 10^3/uL (0.0-0.1); Basophils % 0.9 %; Eosinophils # 0.4 10^3/uL (0.0-0.8); Hematocrit 33.5 % (37.0-47.0); Hemoglobin 9.9 g/dL (11.5-15.3); Lymphocytes # 0.7 10^3/uL (0.8-4.8); Lymphocytes % 12.6 %; Mean Corpuscular HGB Conc 29.6 g/dL (30.0-36.0); Mean Corpuscular Hemoglobin 28.3 pg (28.0-34.0); Mean Corpuscular Volume 95.7 fL (81-99); Mean Platelet Volume 8.9 fL (7.4-10.4); Monocytes # 0.8 10^3/uL (0.2-0.9); Monocytes % 14.6 %; Neutrophils # 3.57 10^3/uL (1.8-7.7); Neutrophils % 64.5 %; Nucleated Red Blood Cells % 0 %; Platelet Count 297 10^3/cmm (130-400); White Blood Count 5.5 10^3/uL (4.0-10.0)
[2020-06-25 07:32] LABS: Alanine Aminotransferase 7 U/L (0-33); Albumin Level 3.2 g/dL (3.5-5.2); Alkaline Phosphatase 66 IU/L (35-105); Anion Gap 9.1 (5-19); Aspartate Amino Transferase 18 U/L (0-32); Blood Urea Nitrogen 9 mg/dL (8-23); Calcium 8.7 mg/dL (8.5-10.5); Carbon Dioxide 31 mmol/L (22-29); Chloride 105 mmol/L (98-107); Globulin 2.1 g/dL (1.3-4.6); Glucose 95 mg/dL (65-115); Magnesium 2.1 mg/dL (1.7-2.3); Osmolality Calculated 290 mOsm/kg (285-295); Phosphorus 3.6 mg/dL (2.5-4.5); Potassium 4.1 mmol/L (3.5-5.1); Sodium 141 mmol/L (136-145); Total Bilirubin 0.4 mg/dL (0.15-1.2); Total Protein 5.3 g/dL (6.6-8.7)
[2020-06-25 07:50] VITALS: BP 143/68; PULSE 54; RESP 18; TEMP 36.8; O2SAT 97
[2020-06-25] MEDS: amoxicillin-clav 875-125 mg Tablet 1 TAB PO (08:52)
[2020-06-25] MEDS: pantoprazole 40 mg SDV IVP (08:53)
[2020-06-25 12:00] VITALS: BP 143/65; PULSE 61; RESP 18; TEMP 37.1; O2SAT 96
--- NOTE | 2020-06-25 12:01 | PM.DCS ---
Discharge Providers Date of Admission: 06/24/20 15:13 Date of Discharge: June 25, 2020 Attending Provider at Admission: Chelsey Simpson MD Attending Provider at Discharge: Herman Kyle MD Primary Care Provider: Zhang Gamboa MD Diagnoses at Discharge Discharge Diagnosis (1) GI bleed: Status: Acute (2) Chronic kidney disease: Status: Acute (3) Bradycardia: Status: Acute Problem details: Patient states her heart rate runs in 40s to 50s at home (4) Left leg DVT: Status: Acute (5) Pulmonary emboli: Status: Acute Qualifiers: Pulmonary embolism type: unspecified (6) Breast cancer: Status: Acute Reason for Visit Reason for Visit: hypotension Hospital Course Discharge Summary: This is a 75-year-old female with past medical history of CKD, bradycardia, history of infiltrating ductal carcinoma right breast status post lumpectomy radiation therapy on anastrozole, recent history of significant pulmonary emboli and left leg DVT on Eliquis who presents to [facility] due to complaints of black stools Patient was admitted to [facility] for GI bleed secondary to Eliquis, patient was hypotensive on the way to [facility], received epinephrine, however here was normotensive, no repeat episodes of bloody black stools, Eliquis was held, hemoglobin got as low as 7.2, received 2 units PRBC, admitted to general medical floors, general surgery consulted, started on Protonix, Carafate, n.p.o., hemodynamics monitored, hemoglobin monitored. Currently, there is were no immediate plans for EGD, unless she has an acute GI bleed with hemorrhagic shock. We are worried about the risks of the procedure, currently given her history of extensive pulmonary emboli and right heart strain, there is significant risk of the procedure, anesthesia, significant morbidity and mortality associated. Obviously the benefit would be to figure out the source of bleeding. But what we have elected for in consultation with general surgery, a conservative approach, monitoring her hemoglobin, monitoring of blood pressure, monitoring her clinical status, monitor for bloody or black stools. And if she remained stable for the next 24 to 48 hours, the plan would be for her to be discharged home with a close follow-up with general surgery as outpatient, for decision on when to do an EGD or colonoscopy. She voiced understanding, all questions answered, agreed to proceed with the plan. Patient's hemodynamics were within normal limits throughout her hospitalization hemoglobin on discharge was 9.9, no repeat episodes of bloody or black stools. Patient was discharged on Protonix 40 twice daily, Carafate, instructions to avoid NSAIDs, her aspirin was held, Eliquis was stopped. Patient was advised to monitor for bloody black stools, lightheadedness, dizziness and if so come back to emergency room. Patient was advised to follow with general surgery in 1 month for decision of EGD and/or colonoscopy. Given patient's recent significant multiple bilateral pulmonary emboli, including nonocclusive saddle embolus at the distal aspect of the left main pulmonary artery, with evidence of right heart strain, not a candidate for thrombectomy procedure we were highly concerned for recurrent thromboembolism and the morbidity and mortality associated. Repeat ultrasound bilateral lower extremity were negative for acute DVTs. Will have patient follow-up with pulmonary as outpatient, and decide when he would be prudent to reinstitute coagulant therapy. However there is significant concern of her risk of recurrent thromboembolism, significant morbidity and mortality associated, sudden . Unfortunately we do not have a lot of options, placing her back on anticoagulation immediately puts her at risk of life-threatening bleeding. Thus the only reasonable option would be to place an IVC filter. I have consulted Dr. Jameson for placement of filter, he agreed that this would be the best course of action, the surgery surgery has been tentatively planned for Saturday. Discuss IVC filter placement, the procedure itself, complications, voiced understanding, all questions answered, agreed to proceed with plan. Patient will I advised patient that currently we are holding all anticoagulation, at any point she does run the risk of recurrent thromboembolism, currently her risk of GI bleeding is higher than recurrent thromboembolism, but that does not mean that there is no risk, there is significant risk, and this is why we are trying to expedite her IVC filter placement. She voiced understanding, all questions answered. Patient has developed significant pulmonary emboli, etiology is unclear, however given her history of breast cancer with lumpectomy, patient was advised to follow with Dr. Collins for repeat mammography, hopefully she can have colonoscopy at some point, CT of the abdomen will did not have any acute findings. Patient anastrozole has been held as this can be associated with pulmonary emboli and DVTs. Patient is to follow-up with Dr. Eckert as outpatient. Physical Exam Const: COMMON NORMALS: no acute distress and patient oriented x3 HENMT: COMMON NORMALS: normocephalic HEAD & SCALP: normocephalic Neck/C-Spine: COMMON NORMALS: no JVD Resp: COMMON NORMALS: normal respiratory effort, No retractions, No use of accessory muscles and clear to auscultation bilaterally AUSCULTATION: clear to auscultation bilaterally Cardio: COMMON NORMALS: no JVD, regular rate, regular rhythm, S1 normal heart sound present and S2 normal heart sound present RATE: regular rate RHYTHM: regular rhythm HEART SOUNDS: S1 normal heart sound present and S2 normal heart sound present GI: COMMON NORMALS: Normal to inspection, nondistended, normoactive bowel sounds present, Soft to palpation, non-tender, No hepatosplenomegaly present, no masses and no bruits PALPATION: Yes Soft to palpation and Yes No hepatosplenomegaly present Extremity: COMMON NORMALS: capillary refill normal, no clubbing, cyanosis or edema, no calf tenderness and no pedal edema Neuro: COMMON NORMALS: patient oriented x3 Psych: COMMON NORMALS: mental status grossly normal Discharge Data Data Completed and Pending: Completed Studies During Hospitalization Category Date Time Status CT abdomen pelvis wo con [id number] Rout ine Cat Scan 06/24/20 10:27 Completed XR chest 1V kala ble [id number] Stat Exams 06/23/20 20:03 [place] [id number] Stat Ultrasound 06/24/20 11:18 Completed Pending at discharge Category Date Time Status Complete Blood Co unt w/Auto AM LABS Lab 06/26/20 04:00 Ordered Complete Blood Co unt w/Auto AM LABS Lab 06/27/20 04:00 Ordered Comprehensive Met abolic Panel AM LA BS Lab 06/26/20 04:00 Ordered Comprehensive Met abolic Panel AM LA BS Lab 06/27/20 04:00 Ordered Hemoglobin and He matocrit Stat Lab 06/25/20 11:48 Ordered Magnesium AM LABS Lab 06/26/20 04:00 Ordered Magnesium AM LABS Lab 06/27/20 04:00 Ordered Phosphorus AM LAB S Lab 06/26/20 04:00 Ordered Phosphorus AM LAB S Lab 06/27/20 04:00 Ordered Labs from last 24 hours 06/25/20 06/25/20 06/24/20 05:35 05:35 19:02 WBC 5.5 5.8 RBC 3.50 L 3.31 L Hgb 9.9 L 9.4 L Hct 33.5 L 31.2 L MCV 95.7 94.3 MCH 28.3 28.4 MCHC 29.6 L 30.1 RDW 15.0 15.0 Plt Count 297 286 MPV 8.9 8.7 Neut % (Auto) 64.5 65.8 Lymph % (Auto) 12.6 13.1 [place] % (Auto) 14.6 13.8 Eos % (Auto) 7.0 5.4 Baso % (Auto) 0.9 1.2 Neut # (Auto) 3.57 3.80 Lymph # (Auto) 0.7 L 0.8 [place] # (Auto) 0.8 0.8 Eos # (Auto) 0.4 0.3 Baso # (Auto) 0.1 0.1 Nucleated RBC % (a uto) 0 0.3 Nucleated RBCs # 0.0 0.0 Sodium 141 Potassium 4.1 Chloride 105 Carbon Dioxide 31 H Anion Gap 9.1 BUN 9 Creatinine 0.8 GFR Calculation Not Reportable Glucose 95 Calculated Osmolal ity 290 Calcium 8.7 Phosphorus 3.6 Magnesium 2.1 Total Bilirubin 0.4 AST 18 ALT 7 Alkaline Phosphata se 66 Total Protein 5.3 L Albumin 3.2 L Globulin 2.1 06/24/20 10:09 WBC 5.1 RBC 3.37 L Hgb 9.6 L D Hct 31.9 L MCV 94.7 MCH 28.5 MCHC 30.1 RDW 14.8 Plt Count 283 MPV 8.8 Neut % (Auto) 63.4 Lymph % (Auto) 16.3 [place] % (Auto) 12.6 Eos % (Auto) 5.3 Baso % (Auto) 1.2 Neut # (Auto) 3.22 Lymph # (Auto) 0.8 [place] # (Auto) 0.6 Eos # (Auto) 0.3 Baso # (Auto) 0.1 Nucleated RBC % (a uto) 0.6 Nucleated RBCs # 0.0 Sodium Potassium Chloride Carbon Dioxide Anion Gap BUN Creatinine GFR Calculation Glucose Calculated Osmolal ity Calcium Phosphorus Magnesium Total Bilirubin AST ALT Alkaline Phosphata se Total Protein Albumin Globulin Vitals: Last Vital Signs Temp 98.3 F 06/25/20 07:50 Pulse 54 L 06/25/20 07:50 Resp 18 06/25/20 07:50 BP 143/68 06/25/20 07:50 Pulse Ox 97 06/25/20 07:50 Discharge Plan Discharge Patient Disposition: Home Condition: Stable Prescriptions: New Carafate 1 gram tablet 1 gm PO BID 28 Days Qty: 56 RF: 0 amoxicillin-pot clavulanate 875-125 mg Tablet 1 tab PO BID 7 Days Qty: 14 RF: 0 Continued gabapentin 300 mg capsule 300 mg PO BID RF: 0 tizanidine 4 mg capsule 4 mg PO BEDTIME PRN (Reason: Muscle Pain) RF: 0 rosuvastatin [Crestor] 10 mg tablet 10 mg PO ONCE RF: 0 donepezil 10 mg tablet 10 mg PO DAILY RF: 0 potassium chloride [Klor-Con M20] 20 mEq tablet,ER particles/crystals 20 meq PO DAILY RF: 0 citalopram 20 mg tablet 20 mg PO DAILY RF: 0 ferrous sulfate 324 mg (65 mg iron) tablet,delayed release (DR/EC) 324 mg PO DAILY RF: 0 mecobalamin (vitamin B12) 1,000 mcg tablet,chewable 1,000 mcg PO DAILY RF: 0 magnesium oxide 500 mg capsule 500 mg PO DAILY RF: 0 fluticasone propionate [Flonase Allergy Relief] 50 mcg/actuation spray,suspension 1 spray INTRANASAL BID RF: 0 albuterol sulfate 2.5 mg /3 mL (0.083 %) solution for nebulization 2.5 mg INHALATION BID PRN (Reason: Shortness Of Breath Or Wheezing) RF: 0 Trelegy Ellipta 100-62.5-25 mcg blister with device 1 inh INHALATION Q24H 90 Days Qty: 60 RF: 3 dicyclomine 20 mg tablet 20 mg PO BID RF: 0 pantoprazole 40 mg tablet,delayed release (DR/EC) 40 mg PO BID 30 Days Qty: 60 RF: 0 Held aspirin [Adult Aspirin Regimen] 81 mg tablet,delayed release (DR/EC) 81 mg PO DAILY RF: 0 Hold Instructions: Resume on 07/09/20. until seen by primary care Discontinued anastrozole 1 mg tablet 1 mg PO DAILY RF: 0 Hold Instructions: Resume on 06/21/20. Eliquis DVT-PE Treat 30D Start 5 mg (74 tabs) tablets,dose pack See Rx Instructions .ROUTE .COMPLEX Qty: 74 RF: 0 Discharge Orders: Discharge Order (Routine); Ordered 06/25/20 Ordered By: Herman Kyle Other Ambulatory Orders: Complete Blood Count w/Auto (Routine) Timeframe: 2 Days Location: Determined by Patient Ordered By: Herman Kyle Comprehensive Metabolic Panel (Routine) Timeframe: 2 Days Facility: [facility] - Location: Lab - Main Lab Ordered By: Herman Kyle Referrals: Kareem August MD [Physician] - 2 weeks (PE) Ed Spaulding MD [Physician] - 1 month (gi bleed ) Zhang Gamboa MD [Primary Care Provider] - 07/05/20 3:15 pm Orlando Jameson MD [Physician] - 1-3 days (surgery on 06/27/2020) Steven Eckert MD [Hospitalist] - 1 week (PE, breast ca) Discharge Diet: Cardiac Discharge Activity: Resume usual activity Patient Instructions: GI Bleeding, Pulmonary Embolism (DC), Pulmonary Embolism (GEN), Inferior Vena Cava Filter Placement (DC), Inferior Vena Cava Filter Placement (GEN) Activity Restrictions/Additional Instructions: -If you have bloody or black stools go to the emergency room -If you have shortness of breath, chest pain go to the emergency room or call 911 -Please follow-up for surgery on Saturday for IVC filter placement Discharge Attestations Time Spent in Discharge Care*: less than 30 min Quality Metrics Clinical Quality Measures During this hospital stay, did patient experience: None Coding Level of Care Code Acute [employer] Diagnoses GI bleed K92.2 Chronic kidney disease N18.9 Bradycardia R00.1 Left leg DVT I82.402 Pulmonary emboli I26.99 Pulmonary embolism type: unspecified Breast cancer C50.919
[2020-06-25 12:15] LABS: Hematocrit 32.6 % (37.0-47.0); Hemoglobin 9.8 g/dL (11.5-15.3)
--- NOTE | 2020-06-25 12:47 | PC.CHAP ---
Pastoral Care Encounter/Spiritual Assessment Type of Contact [] Declined guest relations associate visit [] Patient/Family/Request visit [] Outpatient visit [] Follow-up visit [] Physician referral [] Code/Alert [X] Routine visit [] Staff referral [] Actively dying [] Patient sleeping [] Family support [] [] Out of room [] Palliative care [] [] Receiving care in room [] Pre-surgical visit [] Trauma [] Long length of stay [] ICU visit [] Other: Relational/Emotional Strength [] Patient feels connected with others/family/visitors/staff [] Distress [] Loneliness/isolation [] Abandonment Spirituality of Patient [] Person of Deepali [] Attends Yarsani of their Deepali [] Believes in Prayer [] Reads Bible or Pentecostal materials [] There are Spiritual issues to be addressed Md Do Resident Urgent Care Interventions [] Prayer [] Active listening [] Non-anxious presence [] Spiritual/emotional support [] Crisis/trauma care [] Spiritual counseling [] Bereavement support [] Provided bereavement packet [] Provided Bible/devotional materials [] Provided toy/stuffed animal, coloring book to patient or family member [] Provided Communion [] Anointing/[place] [] Salvation [] Completed spiritual assessment [] Other: Impact on Illness or Injury [] Angry [] Fearful [] Anxious [] Often cries [] Exhaustion [] Unable to work [] Unable to attend latter-day [] Unable to walk/stand [] Unable to read [] Unable to drive [] Unable to eat/drink [] Unable to sleep [] Unable to be with family [] Patient intubated [] Other: Summary Time spent with patient
[2020-06-25 14:52] VITALS: BP 143/65; PULSE 61; RESP 18; TEMP 37.1; O2SAT 96
== END 2020-06-25 14:53 | disposition home or self-care (01) | DRG 377 ==
LOC: ER 22:09 → MEDSURG 22:12
PROVIDERS: Emergency Medicine; Admitting Provider Internal Medicine; PCP Family Medicine; Visit Provider Family Medicine
DX: K92.2 Gastrointestinal hemorrhage, unspecified (principal); I26.92 Saddle embolus of pulmonary artery without acute cor pulmonale; J96.12 Chronic respiratory failure with hypercapnia; J96.11 Chronic respiratory failure with hypoxia; Z86.718 Personal history of other venous thrombosis and embolism; F32.9 Major depressive disorder, single episode, unspecified; G30.9 Alzheimer's disease, unspecified; F02.80 Dementia in other diseases classified elsewhere, unspecified severity, without behavioral disturbance, psychotic disturbance, mood disturbance, and anxiety; E53.8 Deficiency of other specified B group vitamins; Z85.3 Personal history of malignant neoplasm of breast; I50.9 Heart failure, unspecified; I11.0 Hypertensive heart disease with heart failure; J44.9 Chronic obstructive pulmonary disease, unspecified; K21.9 Gastro-esophageal reflux disease without esophagitis; E78.5 Hyperlipidemia, unspecified; K58.9 Irritable bowel syndrome, unspecified; G47.33 Obstructive sleep apnea (adult) (pediatric); M06.9 Rheumatoid arthritis, unspecified; Z87.891 Personal history of nicotine dependence; D64.9 Anemia, unspecified; Z79.51 Long term (current) use of inhaled steroids; Z92.23 Personal history of estrogen therapy; Z92.3 Personal history of irradiation; R51.9 Headache, unspecified
CPT/HCPCS: 12345; 36415; 36430; 71045; 74176; 80048; 80053; 82728; 83540; 83550; 83605; 83735; 83880; 84100; 84484; 85014; 85018; 85025; 85610; 86850; 86900; 86920; 93005; 93970; 96375; 99284; C9113; G0378; J2270; J7030; J7799; P9016

== ENCOUNTER 2020-06-27 05:59 | Day surgery (SDC) | payer MEDICARE, SELFPAY ==
--- NOTE | 2020-06-27 | SCC_ITS ---
Procedure Done: IVC filter placement 137.6 seconds of fluoroscopic guidance, for a cumulative dose of 35.63 mGy, was provided to Dr. Jameson by the radiology department. C-arm images of the abdomen were saved for the patient's permanent record. MORENAD
--- NOTE | 2020-06-27 | SC_ITS ---
WS: [id number] C-ARM RADIOGRAPHS , UNKNOWN SOURCE; 2 IMAGES HISTORY: OR PICS COMPARISON: None available. Intraoperative imaging during procedure performed by Dr. Shankar. SC/C-arm FL for CVA [id number] IMPRESSION: Intraoperative imaging during surgical procedure.
[2020-06-27 05:54] VITALS: BMI 29.1
--- NOTE | 2020-06-27 06:29 | PM.HP ---
Providers/Chief Complaint Primary Care Provider: Zhang Gamboa MD History of Present Illness Maddison Jenkins is a 75 year old female whom I was notified about at the end of last week after presenting to the hospital on June 24 with her history of melanotic stools and a hemoglobin of 7.2 requiring a 2 unit blood transfusion. She is on Eliquis for substantial bilateral pulmonary embolism and a recent diagnosis of breast carcinoma status postmastectomy. She is followed by Dr. Gamboa as her primary care provider and Dr. Eckert as her oncologist. Her hospital stay was brief and she was discharged on June 25 currently on 2 L nasal cannula. She presents back today for planned IVC filter placement as anticoagulation is felt to be contraindicated at this time. She presents today with her . She is in good spirits. She does have some mild dyspnea though her O2 saturation is 100% on 2 L nasal cannula. During her recent hospitalization she was evaluated by Dr. Spaulding and was felt that endoscopy could be delayed until filter placement was placed and anticoagulation has been discontinued. Her pulmonary embolism burden is fairly substantial including bilateral involvement with a nonocclusive saddle embolus at the distal aspect of the left main pulmonary artery and some evidence of right heart strain. Recent repeat ultrasound of the lower extremities was negative for acute DVT. She does have a history of chronic kidney disease though her recent BUN/creatinine prior to discharge was normal. Review of Systems Const: Denies: fever(s) or chills Eyes: Denies: change in vision ENMT: Denies: throat pain Card: Denies: chest pain, palpitations, irregular heart rhythm or syncope Resp: Reports: dyspnea; Denies: hemoptysis GI: Reports: melena; Denies: abdominal pain Neuro: Denies: headache(s) Psych: Denies: anxiety or depression Medications/Allergies Home Medications Medication Instructions Recorded Confirmed Last Taken Type citalopram 20 mg tablet 20 mg PO DAILY 09/09/19 06/24/20 06/23/20 History donepezil 10 mg tablet 10 mg PO DAILY 09/09/19 06/24/20 06/23/20 History ferrous sulfate 324 mg (65 mg 324 mg PO DAILY tab 09/09/19 06/24/20 06/23/20 History iron) tablet,delayed release gabapentin 300 mg capsule 300 mg PO BID 09/09/19 06/24/20 06/23/20 History potassium chloride 20 mEq 20 meq PO DAILY tab 09/09/19 06/24/20 06/23/20 History tablet,extended release(part/cryst) rosuvastatin 10 mg tablet 10 mg PO ONCE 09/09/19 06/24/20 06/23/20 History aspirin 81 mg tablet,delayed 81 mg PO DAILY 12/10/19 06/24/20 06/23/20 History release fluticasone propionate 50 1 spray INTRANASAL BID 12/10/19 06/24/20 06/23/20 History mcg/actuation nasal spray,suspension magnesium oxide 500 mg capsule 500 mg PO DAILY 12/10/19 06/24/20 06/23/20 History mecobalamin (vitamin B12) 1,000 1,000 mcg PO DAILY tab 12/10/19 06/24/20 06/23/20 History mcg chewable tablet albuterol sulfate 2.5 mg INHALATION BID PRN ml 03/10/20 06/24/20 06/23/20 History fluticasone fur. 100 mcg-umeclid 1 inh INHALATION Q24H 90 Days #60 04/28/20 06/24/20 06/23/20 Rx 62.5 mcg-vilant 25 mcg each inhalat.powder dicyclomine 20 mg PO BID 06/03/20 06/24/20 06/23/20 History amoxicillin-pot clavulanate 1 tab PO BID 7 Days #14 tab 06/25/20 Unknown Rx pantoprazole 40 mg PO BID 30 Days #60 tab 06/25/20 Unknown Rx sucralfate [Carafate] 1 gm PO BID 28 Days #56 tab 06/25/20 Unknown Rx Allergies Allergy/AdvReac Type Severity Reaction Status Date / Time No Known Allergies Allergy Verified 06/24/20 06:54 PFSH Acute PFSH: Medical History Acute depression Alzheimer disease B12 deficiency Bradycardia Patient states her heart rate runs in 40s to 50s at home Breast cancer CHF (congestive heart failure) Chronic respiratory failure with hypoxia and hypercapnia COPD (chronic obstructive pulmonary disease) COPD (chronic obstructive pulmonary disease) D-dimer, elevated GERD (gastroesophageal reflux disease) Hematoma Small complex fluid lesion adjacent to superficial thrombophlebitis in the left calf, 26 x 10 x 24 mm, HTN (hypertension) Hyperlipidemia IBS (irritable bowel syndrome) Leg swelling Muscle spasm Obstructive sleep apnea Pulmonary emboli Rheumatoid arthritis Seasonal allergic rhinitis Superficial thrombophlebitis Tachycardia Varicose veins of left leg with edema Surgical History H/O neck surgery H/O shoulder surgery H/O wrist surgery H/O: knee surgery History of back surgery History of cholecystectomy History of ear surgery History of hysterectomy History of lumpectomy of right breast Family History Father CAD (coronary artery disease) Mother CAD (coronary artery disease) Brother CAD (coronary artery disease) Sister Cancer Other Diabetes Social History Smoking and tobacco status: former smoker Quit status (tobacco): has quit using tobacco Year quit tobacco: 1995 - 1PPD x 40 Years Alcohol intake: never Lives independently: Yes Household members: spouse Marital status: Current occupational status: retired History of recent travel: No Current gender identity: Female Vitals/I&O/Wt Weight last 48 hrs Weight 169 lb 15.622 oz Physical Exam HENMT: COMMON NORMALS: normocephalic, atraumatic, hearing grossly normal bilaterally and moist oral mucous membranes Eye: COMMON NORMALS: Equal, round and reactive pupils present, EOMs intact bilaterally, conjunctivae normal and no scleral icterus GENERAL EYE: appearance normal, both eyes and all related structures Neck/C-Spine: COMMON NORMALS: full ROM, no lymphadenopathy, supple and No carotid bruits Chest: COMMONS NORMALS: normal palpation of entire chest wall CHEST: Yes Symmetrical chest wall rise Resp: COMMON NORMALS: normal respiratory effort and No use of accessory muscles EFFORT & INSPECTION: Yes able to speak in complete sentences and Yes symmetric chest movement Cardio: COMMON NORMALS: regular rate, regular rhythm, S1 normal heart sound present, No gallops present (Cardio), No murmurs present (Cardio) and No rub (Cardio) PERIPHERAL PULSES: radial pulses present positive bilateral 2+ GI: COMMON NORMALS: Normal to inspection, nondistended, normoactive bowel sounds present Extremity: COMMON NORMALS: no clubbing, cyanosis or edema Neuro: COMMON NORMALS: patient oriented x3, no focal motor deficits and no sensory deficits noted Psych: COMMON NORMALS: mental status grossly normal, Normal thought process present, cooperative and speech normal APPEARANCE: Yes grossly normal Skin: COMMON NORMALS: no wounds, no jaundice, no petechiae and no mottling GENERAL SKIN EXAM: no rashes or lesions noted A&P Assessment and plan (1) Pulmonary emboli: Pleasant 75-year-old female with breast carcinoma and recent bilateral pulmonary embolism including nonocclusive left main pulmonary artery saddle embolus and recent gastrointestinal hemorrhage while on Eliquis. Because of continued need for embolus protection and contraindication to continue anticoagulation, we have been requested to place a IVC filter. Rationale for this was very carefully discussed with Ms. Jenkins and her . Risk for heart attack, stroke, , major bleeding, IVC perforation, inability to place the filter, need for further procedures, continued risk for pulmonary embolism, embolization of the filter, and generalized increased risk of the procedure related to her substantial pulmonary embolism burden currently present were frankly discussed. They both stated understanding and wished to proceed. Status: Acute Qualifiers: Pulmonary embolism type: unspecified Attestations Medical Necessity Statement*: Bilateral pulmonary emboli with recent gastrointestinal hemorrhage while anticoagulated Time Spent in Patient Care: Greater than 35 minutes Coding Level of Care Code New Pt Acute Machine Learning Intern for Chg Fwd Patient Type New History Comprehensive Exam Comprehensive Medical Decision Making Moderate Complexity Diagnoses Pulmonary emboli I26.99 Pulmonary embolism type: unspecified Time Spent (min) 40
[2020-06-27 06:34] VITALS: BP 194/75; PULSE 54; RESP 16; TEMP 36.6; O2SAT 100
[2020-06-27] MEDS: sodium chloride 0.9% 1,000 ML 30 ML IV (06:40)
--- NOTE | 2020-06-27 06:50 | ANES.PREANE2 ---
Pre-Anesthetic Assessment Pre-Anesthetic Assessment: Height/Weight: Height 1.63 m Weight 77.1 kg Temp Pulse Resp BP Pulse Ox 97.9 F 54 L 16 194/75 100 06/27/20 06:34 06/27/20 06:34 06/27/20 06:34 06/27/20 06:34 06/27/20 06:34 Preop Diagnosis: Pulmonary embolism Proposed Procedure: Operation Date: 06/27/20 07:00 Proposed Procedures p Vena Cava Filter Insertion(Not Applicable) - Orlando Jameson MD Familial anesthetic complications: NOne Was Beta Marissa taken within 24 hours: N/A Last intake: Intake Last Liquid Date 06/26/20 Last Liquid Time 20:00 Last Solid Date 06/26/20 Last Solid Time 18:30 Social: Social History: No alcohol and No tobacco Exam: Pre-Anes Outpt Exam: alert, oriented x 3, clear to auscultation bilaterally and regular rate & rhythm Additional Exam Findings (including area of procedure): slight wheeze Airway: Cervical ROM: WNL (posterior cervical surgery) MP: 2 Dentition: Full Pulmonary: Pulmonary: COPD and Sleep apnea (noncompliant [facility] CPAP) Comments: Pulmonary embolus on jun 3, still SOB on 2 L NC during day 3 L NC CV/HEM: CV/HEM: Afib and Arrythmia (bradycardia) Comments: Cadiomyopathy Negative cath, EF 40% : : Chronic renal Insufficiency Comments: KURT after contrast dye GI: GI: GERD Musc/skel: Musc/skel: Lower Back Pain (4 back surgery) Anesthetic Plan: ASA status: 4 Anesthesia: MAC Risk of > 500 ml blood loss (7ml/kg in children): No Meds/Allergies Current Medications: Current Medications Generic Name Dose Route Start Last Admin Trade Name Freq PRN Reason Stop Dose Admin Sodium Chloride 1,000 mls @ 30 ml s/hr 06/27/20 06:00 06/27/20 06:40 Sodium Chloride 0.9% IV 06/28/20 05:59 30 mls/hr .Q24H SUJATA Administration PFSH Anesthesia PFSH: Medical History Acute depression Alzheimer disease B12 deficiency Bradycardia Patient states her heart rate runs in 40s to 50s at home Breast cancer CHF (congestive heart failure) Chronic respiratory failure with hypoxia and hypercapnia COPD (chronic obstructive pulmonary disease) COPD (chronic obstructive pulmonary disease) D-dimer, elevated GERD (gastroesophageal reflux disease) Hematoma Small complex fluid lesion adjacent to superficial thrombophlebitis in the left calf, 26 x 10 x 24 mm, HTN (hypertension) Hyperlipidemia IBS (irritable bowel syndrome) Leg swelling Muscle spasm Obstructive sleep apnea Pulmonary emboli Rheumatoid arthritis Seasonal allergic rhinitis Superficial thrombophlebitis Tachycardia Varicose veins of left leg with edema Surgical History H/O neck surgery H/O shoulder surgery H/O wrist surgery H/O: knee surgery History of back surgery History of cholecystectomy History of ear surgery History of hysterectomy History of lumpectomy of right breast Family History Father CAD (coronary artery disease) Mother CAD (coronary artery disease) Brother CAD (coronary artery disease) Sister Cancer Other Diabetes Social History Smoking and tobacco status: former smoker Quit status (tobacco): has quit using tobacco Year quit tobacco: 1995 - 1PPD x 40 Years Alcohol intake: never Lives independently: Yes Household members: spouse Marital status: Current occupational status: retired History of recent travel: No Current gender identity: Female Data Anesthesia Cardiac Studies: No Data to Display
[2020-06-27] MEDS: iohexol 300 mg/mL 50 mL Btl (OR ONLY) XX (10:04)
[2020-06-27] MEDS: lidocaine 1% INJ 20 mL INTRAVESIC (10:05)
[2020-06-27] MEDS: ceFAZolin 1,000 mg SDV 1000 MG IRRIGATION (10:06)
--- NOTE | 2020-06-27 10:34 | P.OP_ITS ---
Operative Report Date of procedure: June 27, 2020 Pre-op Diagnosis: Pulmonary embolism/recent GI hemorrhage Post-op diagnosis: same Procedure Done: IVC filter placement Implants: IVC filter, 30 mm Pathology: none sent Surgeon: Orlando Jameson Anesthesia: MAC and Local (8 cc 1% lidocaine infiltrated locally) Complications: None Findings: Hand-held ultrasound and fluoroscopy utilized for vena identification, engagement, wire/dilator/sheath advancement and positioning and subsequent filter positioning and deployment Condition: stable Disposition: same day Brief History: Ms Jenkins is a 75-year-old female with breast carcinoma and recent hospitalization for extensive pulmonary embolism including nonocclusive left main pulmonary artery saddle embolus. She initially received Eliquis but developed a GI hemorrhage with acute anemia requiring transfusion. After review with consultants, recommendation has been for IVC filter placement. Rationale, details, and risk of the procedure were carefully and frankly discussed with her and her . Appropriate since have been reviewed and signed. Procedure: The entire abdomen, lower chest, groin area, perineal area, and thighs to the level of the knees were sterilely prepped and draped. Utilizing modified Seldinger technique with hand-held ultrasound identification and guidance, the right femoral vein was aspirated and a guidewire was placed under fluoroscopic guidance. Following skin incision with a #11 scalpel blade and predilatation, dilator and sheath were advanced under fluoroscopic guidance into position over 0.35 inch guidewire. Next, Omnipaque was utilized to perform a venogram for proper assessment of the renal veins. Sheath dilator was removed and a preloaded femoral introducer with 30 mm IVC filter was then inserted and advanced and secured to the sheath. Tip of filter was appropriately positioned utilizing fluoroscopic guidance. Following this, filter was released with fluoroscopic guidance and observation. The filter seated well with minimal angulation. Introducer and sheath were then withdrawn and direct pressure was held on the groin area for 10 minutes until hemostasis was confirmed. A weighted pressure dressing was then applied. Vital signs remained stable throughout the procedure. The patient tolerated procedure well and was awakened from anesthesia. She was then transported to outpatient surgery department. We did child welfare counselor with her family completion of the procedure.
[2020-06-27 10:38] VITALS: BP 182/67; PULSE 52; RESP 16; TEMP 36.6; O2SAT 97
[2020-06-27 10:53] VITALS: BP 171/60; PULSE 50; RESP 16; TEMP 36.6; O2SAT 96
[2020-06-27 11:02] VITALS: RESP 16
[2020-06-27] MEDS: fentaNYL 50 mcg/mL INJ 2mL 100 MCG IVP (11:02)
--- NOTE | 2020-06-27 11:55 | ANE.PACU2 ---
Inpatient post-anesthesia follow up: Airway intact: Yes Vital signs: Temperature 98 F Pulse Rate 50 Respiratory Rate 16 Blood Pressure 171/60 Pulse Oximetry 96 Oxygen Delivery Me thod Aerosol Mask Oxygen Flow Rate 2.0 Fraction of Inspir ed Oxygen Hydration adequate: Yes Nausea and vomiting: No Pain level: 1 Mental status: Baseline
== END 2020-06-27 11:55 | disposition home or self-care (01) ==
PROVIDERS: PCP Family Medicine; Visit Provider Thoracic Surgery (Cardiothoracic Vascular Surgery)
PROC: 06H03DZ Insertion of Intraluminal Device into Inferior Vena Cava, Percutaneous Approach (ICD-10-PCS; CPT 37191; principal; 2020-06-27 08:20)
DX: I26.99 Other pulmonary embolism without acute cor pulmonale (principal); Z87.19 Personal history of other diseases of the digestive system; Z85.3 Personal history of malignant neoplasm of breast; Z90.10 Acquired absence of unspecified breast and nipple; Z79.01 Long term (current) use of anticoagulants; Z79.82 Long term (current) use of aspirin; F32.9 Major depressive disorder, single episode, unspecified; I10 Essential (primary) hypertension; I50.9 Heart failure, unspecified; J44.9 Chronic obstructive pulmonary disease, unspecified; E78.5 Hyperlipidemia, unspecified; G47.33 Obstructive sleep apnea (adult) (pediatric); M06.9 Rheumatoid arthritis, unspecified; Z82.49 Family history of ischemic heart disease and other diseases of the circulatory system; Z87.891 Personal history of nicotine dependence; Z99.81 Dependence on supplemental oxygen; Z91.19 Patient's noncompliance with other medical treatment and regimen
CPT/HCPCS: 37191; 12345; 77001; C1880; J0690; J2704; J3010; J7030

== ENCOUNTER 2020-07-21 11:51 | Outpatient (CLI) | payer MEDICARE, SELFPAY ==
[2020-07-21 13:08] LABS: Basophils # 0.1 10^3/uL (0.0-0.1); Basophils % 1.2 %; Eosinophils # 0.3 10^3/uL (0.0-0.8); Eosinophils % 5.6 %; Hematocrit 42.2 % (37.0-47.0); Hemoglobin 12.6 g/dL (11.5-15.3); Lymphocytes % 16.6 %; Mean Corpuscular HGB Conc 29.9 g/dL (30.0-36.0); Mean Corpuscular Hemoglobin 28.3 pg (28.0-34.0); Mean Corpuscular Volume 94.6 fL (81-99); Mean Platelet Volume 9.6 fL (7.4-10.4); Monocytes # 0.6 10^3/uL (0.2-0.9); Monocytes % 10.7 %; Neutrophils # 3.88 10^3/uL (1.8-7.7); Neutrophils % 65.6 %; Nucleated Red Blood Cells % 0 %; Platelet Count 271 10^3/cmm (130-400); Red Blood Count 4.46 10^6/uL (4.1-5.3); Red Cell Distribution Width 13.4 % (12.1-15.1); White Blood Count 5.9 10^3/uL (4.0-10.0)
[2020-07-21 13:24] LABS: Alanine Aminotransferase 8 U/L (0-33); Alkaline Phosphatase 81 IU/L (35-105); Anion Gap 11.2 (5-19); Aspartate Amino Transferase 18 U/L (0-32); Blood Urea Nitrogen 14 mg/dL (8-23); Calcium 9.3 mg/dL (8.5-10.5); Carbon Dioxide 33 mmol/L (22-29); Chloride 100 mmol/L (98-107); Globulin 2.3 g/dL (1.3-4.6); Glucose 88 mg/dL (65-115); Osmolality Calculated 290 mOsm/kg (285-295); Potassium 4.2 mmol/L (3.5-5.1); Sodium 140 mmol/L (136-145); Total Bilirubin 0.3 mg/dL (0.15-1.2); Total Protein 6.3 g/dL (6.6-8.7)
== END 2020-07-21 11:52 | disposition home or self-care (01) ==
LOC: ONCMED 11:52
PROVIDERS: PCP Family Medicine; Visit Provider Internal Medicine Hematology & Oncology
DX: C50.411 Malignant neoplasm of upper-outer quadrant of right female breast (principal); Z79.811 Long term (current) use of aromatase inhibitors
CPT/HCPCS: 80053; 85025

== ENCOUNTER 2020-07-22 05:52 | Outpatient (CLI) | payer MEDICARE, SELFPAY ==
--- NOTE | 2020-07-22 10:41 | ONC FU_ITS ---
Dr. Collins follow up note Patient: Maddison Jenkins Unit #: [id number]: 1945 Dicatated By: Arabella Collins M.D.Date of Visit:Jul 22, 2020 Onc Med Follow-up/Prog Note History of Present Illness: Mrs. Maddison Jenkins, 75-year-old female with history of abnormal mammogram, underwent ultrasound guided biopsy of right breast on 02/10/2019 which showed infiltrating ductal carcinoma, subsequently on 02/26/2019 she underwent excisional biopsy of right breast lesion and final pathology report showed 1 x 0.8 cm infiltrating ductal carcinoma with positive lymphovascular space invasion with clear margins and 1 sentinel lymph node was examined showed no evidence of metastatic disease, her prognostic profiling showed strongly positive ER/WA, and HER-2/raf negative by FISH. And Ki-67 was 5% e.g. favorable Oncotype DX score was 12 e.g. low, distant recurrence so this 9 year with aromatase inhibitor his about 3% and absolute chemotherapy benefits is less than 1%. So started on Arimidex 1 mg by mouth daily for 5 years on 03/03/2019 along with vitamin D/calcium supplements s/p right breast lumpectomy with sentinel lymph node, s/p postlumpectomy radiation therapy Patient denies any history of hormone supplements. Patient denies any history of bone pains, denies any history of weight loss, denies any history of nipple discharge, denies any history of nipple retraction. As per patient she was admitted to hospital on June 24, 2020 with feeling weak and tired and light-colored stools and was diagnosed with GI bleeding due to Eliquis which was started on with recent diagnosis of pulmonary embolism and left leg DVT and patient patient was hypotensive so she was given dose of epinephrine and her hemoglobin was down to 7.2 g, she was given 2 units of packed RBC and Eliquis was put on hold, Dr. Jameson was consulted for IVC filter placement after evaluating risk versus benefit with anticoagulation in a patient with active GI bleeding, Dr. Santana has seen her now EGD and colonoscopy is under consideration patient has seen Dr. Echavarria, who is considering follow-up CT scan of chest to assess pulmonary embolism status.And patient is on home oxygen, And when she was diagnosed with a DVT and pulmonary embolism her Arimidex was also put on hold because of risk of thromboembolism associated with Arimidex. Came for follow-up, denies any specific complaint today, no fever chills, no nausea or vomiting, no dark-colored stools, no hemoptysis or hematemesis, no hematuria, no jaundice, no chest pain, no shortness of breath, now on home oxygen. Medications: Anastrozole 1 Tablet (of 1 mg) Oral daily, Aspirin 1 Tablet (of 81 mg) Oral daily, B-12 1 Tablet (of 1000 mcg) Oral daily, Budesonide-Formoterol Fumarate 1 puff(s) (of 160-4.5 mcg/act) Aerosol Inhalation b.i.d., CeleXA 1 Tablet (of 20 mg) Oral daily, Dicyclomine HCl 1 Tablet (of 20 mg) Oral four times a day, Donepezil HCl 1 Tablet (of 10 mg) Oral daily, Ferrous Sulfate 1 Tablet (of 325 (65 fe) mg) Oral daily, Furosemide 1 Tablet (of 40 mg) Oral daily, Gabapentin 1 Tablet (of 800 mg) Capsule Oral b.i.d., HYDROcodone-Acetaminophen 1 - 2 Tablet (of 5-325 mg) Oral q 4 hours PRN, Ipratropium Jackson 1 puff(s) (of 0.02 %) Solution Inhalation four times a day PRN, Lisinopril 0.5 Tablet (of 20 mg) Oral daily, Magnesium 1 Tablet (of 400 mg) Oral daily, Pantoprazole Sodium 1 Tablet (of 40 mg) Tablet, enteric coated Oral daily, Potassium Chloride ER 1 Tablet (of 20 meq) Tablet, controlled release Oral daily, Rosuvastatin Calcium 1 Tablet (of 10 mg) Oral daily, tiZANidine HCl 1 Capsule (of 4 mg) Oral four times a day PRN, traMADol HCl 1 Tablet (of 50 mg) Oral t.i.d. PRN, Trelegy Ellipta Aerosol Powder, Breath Activated Inhalation Allergies: No Known Allergies. Review of Systems: Review of Systems is not available for this patient. Vital Signs: Performed on Jul 22, 2020 09:59 Height - 63.50 in Weight - 168.8 lbs (LOW) BSA - 1.81 sq.m BMI - 29.43 Temperature - 97.8 F (LOW) Pulse - 52 /min (LOW) Respiration - 18 /min BP - 169/75 mm(hg) (HIGH) O2 Sat - 95 % (LOW) Pain - 0 Performance Status: 1 - No physically strenuous activity, but ambulatory and able to carry out light or sedentary work (e.g. office work, light house work). (ECOG) Physical Examination: Respiratory - Lungs are clear to auscultation, Cardiovascular - Regular rate and rhythm of heart, Gastrointestinal - Soft, bowel sounds present, Extremities - No visible edema or rash. Lab/Imaging: Most recent lab results are not available for this patient. Impression: Infiltrating ductal carcinoma of right breast status post excisional biopsy with sentinel lymph node done on 02/26/2019 next Final pathology report showed 1 x 0.8 cm mass, clear surgical margins T1b, 0/1 sentinel lymph node showed metastatic disease N0 pStage 1A ER 95%, WA 94%, HER-2/raf negative by FISH, Ki-67 5% e.g. favorable Oncotype DX score, is 12, e.g. low risk, distance recurrence of metastases with aromatase inhibitor at 9 years is about 3% and absolute chemotherapy benefit is less than 1% , so started on Arimidex 1 mg by mouth daily for 5 years on 03/03/2019 along with vitamin D/calcium supplement, On hold due to episode of left leg DVT/pulmonary embolism s/p postlumpectomy radiation therapy to the right breast Plan: Discussed with patient regarding her labs white blood count 5.9 hemoglobin 12. 6, hematocrit 42.2 platelets 271,000 CMP within normal limits Clinically, patient is doing well with no new signs symptoms, patient is scheduled to see Dr. Santana for EGD and colonoscopy regarding recent episode of GI bleeding while on anticoagulation for left leg DVT and pulmonary embolism, causing drop in her hemoglobin to 7.2 g requiring blood transfusion. Subsequently Eliquis was discontinued and inferior vena cava filter was placed in on June 27, 2020. And her Arimidex was also put on hold after diagnosis with left leg DVT and pulmonary embolism. As far as the breast cancer is concerned, patient has low risk, early stage breast cancer, considering risk versus benefits, will continue to hold Arimidex until her GI bleeding issue is resolved and if patient can tolerate low-dose anticoagulation then we may consider hormone therapy for breast cancer. She will return to clinic in 1 month with CBC and will review her EGD and colonoscopy report if it shows no evidence of GI bleeding source, and her follow-up lab work-up shows anemia or episode of dark-colored stools or bleeding, then may consider capsule endoscopy to rule out small bowel AVMs. Signed By: Arabella Collins M.D. <<Signature on File>>
== END 2020-07-22 05:53 | disposition home or self-care (01) ==
LOC: ONCMED 05:55
PROVIDERS: PCP Family Medicine; Visit Provider Internal Medicine Hematology & Oncology
DX: C50.411 Malignant neoplasm of upper-outer quadrant of right female breast (principal); Z17.0 Estrogen receptor positive status [ER+]; T45.515D Adverse effect of anticoagulants, subsequent encounter; Z79.811 Long term (current) use of aromatase inhibitors; Z92.3 Personal history of irradiation; Z86.718 Personal history of other venous thrombosis and embolism; Z79.01 Long term (current) use of anticoagulants; Z86.711 Personal history of pulmonary embolism; Z99.81 Dependence on supplemental oxygen
CPT/HCPCS: 99214

== ENCOUNTER 2020-08-09 14:05 | Outpatient (CLI) | payer MEDICARE, SELFPAY ==
--- NOTE | 2020-08-09 14:00 | CT_ITS ---
WS: [id number] CT CHEST ANGIOGRAPHY WITH REFORMATS HISTORY: Submassive PE TECHNIQUE: Contiguous axial images are obtained through the chest during arterial injection of intrav enous contrast. Images are reconstructed to evaluate the pulmonary arteries. MIP imaging also reviewe d. All CT scans at [facility] use at least one of these dose optimization techniques: aut omated exposure control; mA and/or kV adjustment per patient size (includes targeted exams where dose is matched to clinical indication); or iterative reconstruction. CONTRAST: Omnipaque 350; 95 mL IV. DLP: 630.2 mGy.cm COMPARISON: 06/04/2020 Excellent opacification of the pulmonary arteries. Previously described pulmonary emboli have resolve d. No pulmonary emboli are identified. There is continued enlargement artery measuring 3.1 cm. Mild a therosclerosis aorta with normal size aorta. Mild enlargement of the LEFT heart chambers. RIGHT heart strain has resolved. Chronic moderate centrilobular emphysema. No pulmonary mass or nodule. Mediastinal and hilar lymph no bri are subcentimeter and less prominent than on the prior study. Very small hiatal hernia. Prior cholecystectomy. IVC filter is present mild atherosclerosis suprarenal aorta. Nonobstructing ca lcifications LEFT kidney. Extensive prior fusion hardware in the cervical and thoracolumbar spines. Advanced degenerative bowens es throughout the thoracic spine with disc space narrowing and osteophyte development. CT/CT angio chest [id number] IMPRESSION: 1. Interval resolution of the bilateral pulmonary emboli described on 0. 2. Improved RIGHT heart strain. 3. Moderate emphysema. 4. Slightly improved indeterminate mediastinal and hilar lymph nodes size.
--- NOTE | 2020-08-09 15:00 | USCV_ITS ---
Maddison Jenkins Age: 75 Gender: F : 1945 Exam Date: 08/09/2020 14:53 Ordering Phys: Viri Echavarria MD Technologist: Marilee Molina Exam Location[place] [facility] [place] Indication: CHEST PAIN BP: 140 / 65 HR: 49 Rhythm: Sinus Technical Quality: Adequate MEASUREMENTS (Male / Female) Normal Values 2D ECHO LV Diastolic Diameter PLAX 5.1 cm 4.2 - 5.9 / 3.9 - 5.3 cm LV Systolic Diameter PLAX 3.7 cm LV Chamber Size 3.7 cm IVS Diastolic Thickness 1.0 cm 0.6 - 1.0 / 0.6 - 0.9 cm IVS Systolic Thickness 1.5 cm LVPW Diastolic Thickness 1.2 cm 0.6 - 1.0 / 0.6 - 0.9 cm LVPW Systolic Thickness 1.6 cm RV Chamber Size 2.4 cm LVOT Diameter 2.1 cm LV Ejection Fraction 2D Teich 54.7 % LV Ejection Fraction MOD 2C 56.7 % LV Ejection Fraction 2C AL 58.5 % LA Diameter 1.5 cm LA Width 3.3 cm LA Height 4.2 cm RA Width 3.7 cm Aorta at Sinotubular Diameter 3.2 cm M-MODE LV Diastolic Diameter MM 5.6 cm 4.2 - 5.9 / 3.9 - 5.3 cm LV Systolic Diameter MM 3.5 cm LV Ejection Fraction MM Teich 66.4 % IVS Diastolic Thickness MM 0.9 cm 0.6 - 1.0 / 0.6 - 0.9 cm IVS Systolic Thickness MM 1.4 cm LVPW Diastolic Thickness MM 1.2 cm 0.6 - 1.0 / 0.6 - 0.9 cm LVPW Systolic Thickness MM 1.6 cm RV Diastolic Diameter MM 1.1 cm Aortic Annulus Diameter 3.4 cm LA Ao Ratio MM 0.0 MV E Point Septal Separation 0.7 cm DOPPLER AV Peak Velocity 141.0 cm/s LVOT Peak Velocity 84.7 cm/s AV Area Cont Eq vti 2.1 cm squared AV Area Cont Eq pk 2.0 cm squared MV Area PHT 2.8 cm squared Mitral E to A Ratio 0.9 MV E' Velocity 44.0 cm/s Mitral E to MV E' Ratio 11.8 Mitral E to LV E' Lateral Ratio 11.8 Mitral E to LV E' Septal Ratio 11.8 TR Peak Velocity 285.4 cm/s TR Peak Gradient 32.6 mmHg TR Mean Velocity 213.8 cm/s TR Mean Gradient 20.3 mmHg TR Velocity Time Integral 81.1 cm TV Peak E Velocity 68.0 cm/s PV Peak Velocity 66.0 cm/s RV Acceleration Time 0.2 s RV Ejection Time 0.4 s RV AcT/ET 0.4 FINDINGS Left Ventricle Normal left ventricular size with a slightly diminished ejection fraction EF 53 %. Mild diffuse hypokinesia of the left ventricle. Right Ventricle The right ventricle is normal in size and function. Right Atrium The right atrium is normal in size. Left Atrium The left atrium is normal in size. Mitral Valve Thickened aortic valve. Aortic Valve Thickened aortic valve. Tricuspid Valve Thickened aortic valve. Pulmonic Valve Thickened aortic valve. Pericardium Normal pericardium without effusion. Aorta Normal ascending aorta dimension. CONCLUSIONS Normal left ventricular size with a slightly diminished ejection fraction EF 53 %. Mild diffuse hypokinesia of the left ventricle. There is no pericardial effusion. There are no intracardiac masses. Compared to the previous study from 06/04/2020, there is slight drop in the LV ejection fraction(from 59% to 53%) Dr Lacy Santos MD [facility] (Electronically Signed) Final Date: 10 August 2020 09:49 S
[2020-08-09] MEDS: iohexol 350 mg/mL 100 mL Btl IV (15:25)
== END 2020-08-09 14:06 | disposition home or self-care (01) ==
LOC: CT 14:09
PROVIDERS: PCP Family Medicine; Visit Provider Internal Medicine Critical Care Medicine
DX: I26.99 Other pulmonary embolism without acute cor pulmonale (principal); R07.9 Chest pain, unspecified; I51.89 Other ill-defined heart diseases
CPT/HCPCS: 71275; 93306

== ENCOUNTER 2020-09-29 07:49 | Outpatient (CLI) | payer MEDICARE, SELFPAY ==
[2020-09-29 08:45] LABS: Basophils # 0.1 10^3/uL (0.0-0.1); Basophils % 1.3 %; Eosinophils # 0.3 10^3/uL (0.0-0.8); Eosinophils % 4.9 %; Hematocrit 45.6 % (37.0-47.0); Hemoglobin 13.4 g/dL (11.5-15.3); Lymphocytes % 19.1 %; Mean Corpuscular HGB Conc 29.4 g/dL (30.0-36.0); Mean Corpuscular Hemoglobin 27.7 pg (28.0-34.0); Mean Corpuscular Volume 94.4 fL (81-99); Monocytes # 0.7 10^3/uL (0.2-0.9); Monocytes % 13.4 %; Neutrophils # 3.24 10^3/uL (1.8-7.7); Neutrophils % 61.1 %; Nucleated Red Blood Cells % 0 %; Platelet Count 224 10^3/cmm (130-400); Red Blood Count 4.83 10^6/uL (4.1-5.3); Red Cell Distribution Width 13.2 % (12.1-15.1); White Blood Count 5.3 10^3/uL (4.0-10.0)
[2020-09-29 12:20] LABS: Alanine Aminotransferase 10 U/L (0-33); Albumin Level 3.6 g/dL (3.5-5.2); Alkaline Phosphatase 89 IU/L (35-105); Anion Gap 11.3 (5-19); Aspartate Amino Transferase 18 U/L (0-32); Blood Urea Nitrogen 17 mg/dL (8-23); Calcium 9.1 mg/dL (8.5-10.5); Carbon Dioxide 33 mmol/L (22-29); Chloride 103 mmol/L (98-107); Globulin 2.7 g/dL (1.3-4.6); Glucose 69 mg/dL (65-115); Osmolality Calculated 296 mOsm/kg (285-295); Potassium 4.3 mmol/L (3.5-5.1); Sodium 143 mmol/L (136-145); Thyroid Stimulating Hormone 3.24 uIU/mL (0.27-4.20); Total Bilirubin 0.4 mg/dL (0.15-1.2); Total Protein 6.3 g/dL (6.6-8.7)
--- NOTE | 2020-10-07 21:54 | ONC FU_ITS ---
[facility] Patient Note Patient: Maddison Jenkins Unit #: [id number]: 1945 Dictated By: Aleksandar MedranoDate of Visit: Sep 29, 2020 Onc MED Follow-Up/Prog Note Chief Complaint: Right breast cancer History of Present Illness: Mrs. Jenkins is a 75-year-old female with a history of abnormal mammogram. She underwent ultrasound guided biopsy of right breast on 02/10/2019 which showed infiltrating ductal carcinoma. On 02/26/2019 she underwent excisional biopsy of right breast lesion and final pathology report showed 1 x 0.8 cm infiltrating ductal carcinoma with positive lymphovascular space invasion with clear margins. One sentinel lymph node was examined which showed no evidence of metastatic disease. Her prognostic profiling showed strongly positive ER/SC, and HER-2/raf negative by FISH. And Ki-67 was 5% e.g. favorable Oncotype DX score was 12 e.g. low distant recurrence-treatment benefit with aromatase inhibitor is about 3% and absolute chemotherapy benefits is less than 1%. Dr Collins recomeended that she start on Arimidex 1 mg by mouth daily for 5 years. She began Arimidex on 03/03/2019 along with vitamin D/calcium supplements. s/p right breast lumpectomy with sentinel lymph node, s/p postlumpectomy radiation therapy She was diagnosed with acute multilobular pulmonary emboli and left lower extremity DVT after presenting to [facility] due to a syncopal episode and chest discomfort. She was noted to have an elevated D-dimer in the emergency room and VQ scan was indeterminate. Initially a CTA was not performed due to acute kidney injury on presentation and covered empirically with Lovenox due to possible concern for PE. CT was performed after renal function improved after her lisinopril and Lasix were held and she received gentle rehydration. CT of the chest showed multiple pulmonary emboli included nonocclusive saddle embolus. Her oxygenation remained stable but she did require 2 L of oxygen at rest. She was treated with Lovenox and subsequently transitioned to Eliquis while in the hospital. She also noted some swelling and tenderness of the left calf and evaluation by duplex noted superficial thrombophlebitis in the greater saphenous vein as well as area of complex fluid collection, hematoma but abscess could not be excluded. During that hospitalization, the hospitalist did reach out to [facility] for consideration of thrombolysis given that she had multilobular PEs. However after discussing her case and careful consideration the consensus was that currently risk of bleeding would outweigh risk of benefit from the thrombolysis and therefore the procedure was recommended against at that time. She was admitted to the hospital on June 24, 2020 with feeling weak and tired and light-colored stools. She was diagnosed with GI bleeding due to Eliquis (which was started on 06/06/2020 with recent diagnosis of multilobular pulmonary embolism and left leg DVT). She was hypotensive so she was given dose of epinephrine and her hemoglobin was down to 7.2 g. She was given 2 units of packed RBC and Eliquis was put on hold. Dr. Jameson was consulted for IVC filter placement and after evaluating risk versus benefit with anticoagulation in a patient with active GI bleeding-an IVC filter was placed. Dr. Santana has been consulted and an EGD and colonoscopy is under consideration. Mrs Jenkins reports she has seen Dr. Echavarria, who is considering follow-up CT scan of chest to assess pulmonary embolism status. She is now on home oxygen-continuious. The Armidex was placed on hold when she was diagnosed with a DVT and pulmonary embolism because of risk of thromboembolism associated with Arimidex. She remains off any blood thinners. Mrs Jenkins is here today for followup. She states overall she is doing about the same. She states she is still short of breath but has not been using her inhalers-particulary the Trelegy because she cannot afford it. She states using just the albuterol by itself does not really do a whole lot for her. She states she has had some shortness of breath with exertion. She has had some cough and some chills off and on but denies any documented fever. She states that when she does use the pulmonary belies her for her cough and phlegm it does help for a few hours but then wears off pretty quickly. She states that she is out of her nitroglycerin sublingual and is concerned about that. She states she is had some intermittent right chest wall/breast pain but states that it feels more like my heart than my breast . Her energy is marginal. She is able to do her ADLs without any great assistance but has to rest frequently in between chores. She states she has a productive cough but typically eats more white and yellow than any other colors. She states is worse in the morning when she gets up. She denies any bowel or bladder changes. She is had no breast changes. She denies mouth sores, sore throat or difficulty swallowing. She states her appetite is normal for her. She denies any new concerns today. She states that she has just been worried about her breathing. She is worried that her blood clots may be coming back as she feels that she may be getting a little bit more winded but she states it is hard to tell with her COPD as well. She states that when she was on the Trelegy inhaler she thought her breathing was better. She does not have a current mammogram on report with [facility]. She did have the CTs as indicated with her admissions for the pulmonary emboli but no breast abnormalities were noted. She has CT of the abdomen with out contrast on 06/24/2020 which reported no acute processes. Her ECOG is 1. Past Medical History: Anxiety Arthropathy Bradycardia Chronic obstructive pulmonary disease Coronary artery disease Depression Gastroesophageal reflux disease History of colon polyps Hyperlipidemia Hypertension Iron deficiency Irritable bowel syndrome Memory loss Multiple sclerosis Myalgia Obstructive sleep apnea Osteoarthritis Osteoporosis Peripheral neuropathy Pulmonary edema Renal failure Past Surgical History: Back surgery x4 Cholecystectomy Hysterectomy/bilateral salpingectomy-oophorectomy Left knee replacement in 2009 Colonoscopy in 2004 Allergies: No Known Allergies. Medications: Anastrozole 1 Tablet (of 1 mg) Oral daily Aspirin 1 Tablet (of 81 mg) Oral daily B-12 1 Tablet (of 1000 mcg) Oral daily Budesonide-Formoterol Fumarate 1 puff(s) (of 160-4.5 mcg/act) Aerosol Inhalation b.i.d. CeleXA 1 Tablet (of 20 mg) Oral daily Dicyclomine HCl 1 Tablet (of 20 mg) Oral four times a day Donepezil HCl 1 Tablet (of 10 mg) Oral daily Ferrous Sulfate 1 Tablet (of 325 (65 fe) mg) Oral daily Furosemide 1 Tablet (of 40 mg) Oral daily Gabapentin 1 Tablet (of 800 mg) Capsule Oral b.i.d. HYDROcodone-Acetaminophen 1 - 2 Tablet (of 5-325 mg) Oral q 4 hours PRN Ipratropium Liberty 1 puff(s) (of 0.02 %) Solution Inhalation four times a day PRN Lisinopril 0.5 Tablet (of 20 mg) Oral daily Magnesium 1 Tablet (of 400 mg) Oral daily Pantoprazole Sodium 1 Tablet (of 40 mg) Tablet, enteric coated Oral daily Potassium Chloride ER 1 Tablet (of 20 meq) Tablet, controlled release Oral daily Rosuvastatin Calcium 1 Tablet (of 10 mg) Oral daily tiZANidine HCl 1 Capsule (of 4 mg) Oral four times a day PRN traMADol HCl 1 Tablet (of 50 mg) Oral t.i.d. PRN Trelegy Ellipta Aerosol Powder, Breath Activated Inhalation Family History: Ms. Jenkins's mother at age 65: congestive heart failure. Ms. Jenkins's father at age 70: congestive heart failure. Ms. Jenkins has 1 brother who is : congestive heart failure. She has 2 sisters: 2 . Ms. Jenkins's first sister's breast cancer, and cervical cancer. Another sister's breast cancer, and cervical cancer. Social History: Ms. Jenkins is and she is a disabled. Ms. Jenkins quit smoking 16 years ago but had smoked 1.0 pack/day for 47 years. She has no history of drinking. Ms. Jenkins reports the following support systems: lives with spouse, significant other, family, or friends, lives in own house, supportive family/friends willing to assist with needs, and adequate transportation available for expected visits. Her diet consists of regular meals. She indicates her activity level as: occasional exercise. Review Of Symptoms: Constitutional Denies fevers, chills, night sweats, excessive fatigue or weight loss. Allergic/Immunologic No reactions. Eyes Denies significant visual changes. No diplopia. No amaurosis. ENMT Denies changes in hearing, sore throat, mouth sores, difficulty or changes in swallowing ability, and/or sinus drainage. Endocrine No diabetes, thyroid disease or hormone replacement. Denies hot flashes or night sweats. Hematologic/Lymphatic Denies easy bruising or bleeding. The patient denies any tender or palpable lymph nodes. Respiratory See ABOVE Cardiovascular SEE ABOVE Gastrointestinal Denies nausea, vomiting, diarrhea, GI bleeding, or constipation. Denies change in bowel habits and/or stool color, no heartburn or early satiety. She states her stools are normal colored and she has not seen any recent blood. Genitourinary (F) No hematuria, hesitancy, incontinence, vaginal bleeding, discharge or other problems with urination. Musculoskeletal Denies joint pain, swelling or redness. No decreased range of motion. Integumentary Denies chronic rashes, inflammation, ulcerations or skin changes. Neurologic Denies headache, blurred vision, and no areas of focal weakness or numbness. Normal gait. No sensory problems. Psychiatric Denies insomnia, depression, sofía or mood swings. Vital Signs: Performed on Sep 29, 2020 09:41 Height - 63.50 in Weight - 169.2 lbs (HIGH) BSA - 1.81 sq.m BMI - 29.50 Temperature - 97.6 F (LOW) Pulse - 62 /min Respiration - 17 /min BP - 151/64 mm(hg) (HIGH) O2 Sat - 93 % (LOW) Pain - 5 Fatigue - 5,1 - No physically strenuous activity, but ambulatory and able to carry out light or sedentary work (e.g. office work, light house work). (ECOG) Physical Examination: Constitutional Alert, oriented, no acute distress. Skin pink, warm and dry. Head Normocephalic; atraumatic. Eyes Conjunctivae and sclerae are clear and without icterus. Pupils are reactive and equal. Neck Supple without masses or thyromegaly. No jugular venous distension. Hematologic/Lymphatic No petechiae or purpura. No tender or palpable lymph nodes in the cervical or supraclavicular areas. Respiratory Lungs are diminished bilaterally to auscultation but without rhonchi or wheezing. Cardiovascular Regular rate and rhythm of heart without murmurs,clicks, gallops or rubs. Breasts Abdomen Non-tender, non-distended, no masses or ascites. Good bowel sounds noted in all quads. No guarding or rebound tenderness. No pulsatile masses. Back/Spine Non-tender to palpation. Extremities No visible deformities, no cyanosis, clubbing or edema. Musculoskeletal No tenderness or swelling, normal range of motion without obvious weakness. Integumentary No rashes or lesions. Neurologic No sensory or motor deficits, normal cerebellar function, normal gait. Psychiatric Alert and oriented times three. Coherent speech. Verbalizes understanding of our discussions today. Laboratory:Test performed on Sep 29, 2020 08:10 Sodium 143 mmol/L TSH 3.24 uIU/mL Potassium 4.3 mmol/L Chloride 103 mmol/L CO2 33 mmol/L Anion Gap 11.3 BUN 17 mg/dL Creatinine 0.8 mg/dL Cr Clearance (Est) 73.6200 mL/min Glucose 69 mg/dL Osmolality - Calculated 296 mOsm/kg Calcium 9.1 mg/dL Protein, Total 6.3 g/dL Albumin 3.6 g/dL Globulin 2.7 g/dL Bilirubin, Total 0.4 mg/dL ALT (SGPT) 10 U/L AST (SGOT) 18 U/L Alkaline Phosphatase 89 IU/L WBC 5.3 10 3/uL RBC 4.83 10 6/uL HGB 13.4 g/dL HCT 45.6 % MCV 94.4 fL MCH 27.7 pg MCHC 29.4 g/dL RDW 13.2 % Platelet Count 224 10 3/cmm MPV 9.0 fL Neutrophils 3.24 10 3/uL Lymphocytes 1.0 10 3/uL Monocytes 0.7 10 3/uL Eosinophils 0.3 10 3/uL Basophils 0.1 10 3/uL Neutrophil % 61.1 % Lymphocyte % 19.1 % Monocyte % 13.4 % Eosinophil % 4.9 % Basophils % 1.3 % NRBC % 0 % Impression: Infiltrating ductal carcinoma of right breast status post excisional biopsy with sentinel lymph node done on 02/26/2019 next Final pathology report showed 1 x 0.8 cm mass, clear surgical margins T1b, 0/1 sentinel lymph node showed metastatic disease N0 pStage 1A ER 95%, SC 94%, HER-2/raf negative by FISH, Ki-67 5% e.g. favorable Oncotype DX score, is 12, e.g. low risk, distance recurrence of metastases with aromatase inhibitor at 9 years is about 3% and absolute chemotherapy benefit is less than 1% , so started on Arimidex 1 mg by mouth daily for 5 years on 03/03/2019 along with vitamin D/calcium supplement, On hold due to episode of left leg DVT/pulmonary embolism s/p postlumpectomy radiation therapy to the right breast patient is scheduled to see Dr. Santana for EGD and colonoscopy regarding recent episode of GI bleeding while on anticoagulation for left leg DVT and pulmonary embolism, causing drop in her hemoglobin to 7.2 g requiring blood transfusion. Subsequently Eliquis was discontinued and inferior vena cava filter was placed in on June 27, 2020. And her Arimidex was also put on hold after diagnosis with left leg DVT and pulmonary embolism. As far as the breast cancer is concerned, patient has low risk, early stage breast cancer, considering risk versus benefits, will continue to hold Arimidex until her GI bleeding issue is resolved and if patient can tolerate low-dose anticoagulation then we may consider hormone therapy for breast cancer. Plan: PROBLEMS ADDRESSED TODAY: 1. SHORTNESS OF BREATH/COPD/HX MULTILOBULAR PULMONARY [id number]. A. Will send a script to [facility] for 340b coverage for Trelegy 100-62.5 inhaler. B. followup CTA to assess shortness of breath with known hx of multilobular PE/ lower extremity DVT and unable to take blood thinner due to GI bleeding. She also has a hx of breast cancer diagnosed 02/26/2019. C. Refill for Nitrostat 0.4 sulbingual as needed as directed to shortness of breath with exertion and chest pain. #25 tablets D. She is following with pulomonology-Dr Echavarria and indicates she sees him soon. 2. RIGHT BREAST CANCER A. Bilateral diagnostic mammography requested as the last actual breast imaging we have on our records is from March 02, 2019 which was for the right breast biopsy. B. Currently off Arimidex due to PE and DVT. She is not being anticoagulated due to recent GI bleeding. Her GI workup is pending. C. Continue observation for now 3. ANEMIA DUE TO GI BLEEDING A. Labs from today reviewed in detail and discussed with Mrs. Jenkins and a copy was given to her. WBC 5.3, hemoglobin 13.4, platelets 224,000 ANC is 3240. She reports that she has not noted any further bleeding in her stools. B. She did have follow-up with Dr. Spaulding on 07/14/2020 and diagnostic EGD and colonoscopy was recommended when she was medically cleared. These procedures have not yet been done. She indicates she is scheduled to see the surgery clinic again on October 11 for further follow-up and hopes to be set up for her procedures at that time. 4. FOLLOWUP PLAN 1. CTA as discussed above. 2. bilateral screening mammogram for following her hx of right breast cancer-post excisional biopsy on 02/26/2019. She indicates she wants to get her scopes done with Dr Spaulding and then she will followup on the mammograms. 3. We will review the CTA findings once it is obtained and determine further followup from there. As far as her anemia is concerned, that is currently corrected, however I would want to recheck her CBC in a month to make sure it is still stable. I will tentatively plan to have her see Dr Collins back in 4-[address] or GI workup indicates otherwise. 4. Mrs Jenkins was encouraged to call us in the interim if questions or problems arise. C. Per Dr Collins's office note She will return to clinic in 1 month with CBC and will review her EGD and colonoscopy report if it shows no evidence of GI bleeding source, and her follow-up lab work-up shows anemia or episode of dark-colored stools or bleeding, then may consider capsule endoscopy to rule out small bowel AVMs . She has not had GI work up yet but states she is seeing [facility] on 10/11/2020. Signed By: Aleksandar Medrano-, AOCNP Arabella Collins MD <<Signature on File>>
== END 2020-09-29 07:50 | disposition home or self-care (01) ==
LOC: ONCMED 07:52
PROVIDERS: PCP Family Medicine; Visit Provider Nurse Practitioner
DX: C50.411 Malignant neoplasm of upper-outer quadrant of right female breast (principal); J44.9 Chronic obstructive pulmonary disease, unspecified; D50.0 Iron deficiency anemia secondary to blood loss (chronic); R53.83 Other fatigue; T45.515D Adverse effect of anticoagulants, subsequent encounter; Z17.0 Estrogen receptor positive status [ER+]; Z86.718 Personal history of other venous thrombosis and embolism; Z92.23 Personal history of estrogen therapy; Z92.3 Personal history of irradiation
CPT/HCPCS: 36415; 80053; 84443; 85025; 99214

== ENCOUNTER 2020-10-31 14:26 | Outpatient (CLI) | payer MEDICARE, SELFPAY ==
--- NOTE | 2020-10-31 14:33 | MM_ITS ---
WS: [id number] DIAGNOSTIC BILATERAL DIGITAL MAMMOGRAM WITH CAD HISTORY: HX RIGHT BREAST CA COMPARISON: 02/26/2019, 01/07/2019 and 12/05/2006 TECHNIQUE: Bilateral craniocaudad, mediolateral oblique, and mediolateral views are submitted. Comput er aided detection utilized. Breast composition: There are scattered areas of fibroglandular density. Postsurgical changes are not ed in the upper outer quadrant of the RIGHT breast. There is trabecular thickening and overall skin thickening in the RIGHT breast from prior radiation and surgery. There is a new nodule in the anterio r lateral LEFT breast measuring 6.8 mm. This is probably central to the nipple on the lateral project ion. Additional benign calcification upper-outer quadrant of the LEFT breast. MM/[place] [id number] IMPRESSION: BI-RADS: 0-Incomplete: Need additional imaging evaluation FOLLOW UP: Need Additional Imaging LEFT breast: Spot compression views (CC and MLO). True ML. Ultrasound to follow if abnormality persists.
== END 2020-10-31 14:27 | disposition home or self-care (01) ==
PROVIDERS: PCP Family Medicine; Visit Provider Nurse Practitioner
DX: Z85.3 Personal history of malignant neoplasm of breast (principal); N63.20 Unspecified lump in the left breast, unspecified quadrant; R92.1 Mammographic calcification found on diagnostic imaging of breast
CPT/HCPCS: 77066

== ENCOUNTER 2020-11-09 05:33 | Outpatient (CLI) | payer MEDICARE, SELFPAY ==
[2020-11-09 08:18] LABS: Basophils % 0.5 %; Eosinophils # 0.2 10^3/uL (0.0-0.8); Eosinophils % 3.5 %; Hematocrit 43.2 % (37.0-47.0); Hemoglobin 13.1 g/dL (11.5-15.3); Lymphocytes # 1.1 10^3/uL (0.8-4.8); Lymphocytes % 19.9 %; Mean Corpuscular HGB Conc 30.3 g/dL (30.0-36.0); Mean Corpuscular Hemoglobin 28.7 pg (28.0-34.0); Mean Corpuscular Volume 94.5 fL (81-99); Mean Platelet Volume 8.8 fL (7.4-10.4); Monocytes # 0.7 10^3/uL (0.2-0.9); Monocytes % 12.7 %; Neutrophils # 3.58 10^3/uL (1.8-7.7); Nucleated Red Blood Cells % 0 %; Platelet Count 214 10^3/cmm (130-400); Red Blood Count 4.57 10^6/uL (4.1-5.3); Red Cell Distribution Width 13.7 % (12.1-15.1); White Blood Count 5.7 10^3/uL (4.0-10.0)
[2020-11-09 08:39] LABS: Alanine Aminotransferase 10 U/L (0-33); Albumin Level 3.7 g/dL (3.5-5.2); Alkaline Phosphatase 89 IU/L (35-105); Aspartate Amino Transferase 20 U/L (0-32); Blood Urea Nitrogen 22 mg/dL (8-23); Calcium 8.8 mg/dL (8.5-10.5); Carbon Dioxide 32 mmol/L (22-29); Chloride 102 mmol/L (98-107); Globulin 2.6 g/dL (1.3-4.6); Glucose 93 mg/dL (65-115); Osmolality Calculated 293 mOsm/kg (285-295); Sodium 140 mmol/L (136-145); Total Bilirubin 0.6 mg/dL (0.15-1.2); Total Protein 6.3 g/dL (6.6-8.7)
--- NOTE | 2020-11-11 13:38 | ONC FU_ITS ---
Dr. Collins follow up note Patient: Maddison Jenkins Unit #: [id number]: 1945 Dicatated By: Arabella Collins M.D.Date of Visit:Nov 09, 2020 Onc Med Follow-up/Prog Note History of Present Illness: Mrs. Jenkins is a 75-year-old female with a history of abnormal mammogram. She underwent ultrasound guided biopsy of right breast on 02/10/2019 which showed infiltrating ductal carcinoma. On 02/26/2019 she underwent excisional biopsy of right breast lesion and final pathology report showed 1 x 0.8 cm infiltrating ductal carcinoma with positive lymphovascular space invasion with clear margins. One sentinel lymph node was examined which showed no evidence of metastatic disease. Her prognostic profiling showed strongly positive ER/AK, and HER-2/raf negative by FISH. And Ki-67 was 5% e.g. favorable Oncotype DX score was 12 e.g. low distant recurrence-treatment benefit with aromatase inhibitor is about 3% and absolute chemotherapy benefits is less than 1%. recomeended that she start on Arimidex 1 mg by mouth daily for 5 years. She began Arimidex on 03/03/2019 along with vitamin D/calcium supplements. s/p right breast lumpectomy with sentinel lymph node, s/p postlumpectomy radiation therapy She was diagnosed with acute multilobular pulmonary emboli and left lower extremity DVT after presenting to [facility] due to a syncopal episode and chest discomfort. She was noted to have an elevated D-dimer in the emergency room and VQ scan was indeterminate. Initially a CTA was not performed due to acute kidney injury on presentation and covered empirically with Lovenox due to possible concern for PE. CT was performed after renal function improved after her lisinopril and Lasix were held and she received gentle rehydration. CT of the chest showed multiple pulmonary emboli included nonocclusive saddle embolus. Her oxygenation remained stable but she did require 2 L of oxygen at rest. She was treated with Lovenox and subsequently transitioned to Eliquis while in the hospital. She also noted some swelling and tenderness of the left calf and evaluation by duplex noted superficial thrombophlebitis in the greater saphenous vein as well as area of complex fluid collection, hematoma but abscess could not be excluded. During that hospitalization, the hospitalist did reach out to [facility] for consideration of thrombolysis given that she had multilobular PEs. However after discussing her case and careful consideration the consensus was that currently risk of bleeding would outweigh risk of benefit from the thrombolysis and therefore the procedure was recommended against at that time. She was admitted to the hospital on June 24, 2020 with feeling weak and tired and light-colored stools. She was diagnosed with GI bleeding due to Eliquis (which was started on 06/06/2020 with recent diagnosis of multilobular pulmonary embolism and left leg DVT). She was hypotensive so she was given dose of epinephrine and her hemoglobin was down to 7.2 g. She was given 2 units of packed RBC and Eliquis was put on hold. Dr. Jameson was consulted for IVC filter placement and after evaluating risk versus benefit with anticoagulation in a patient with active GI bleeding-an IVC filter was placed. Dr. Santana has been consulted and an EGD and colonoscopy is under consideration. Mrs Jenkins reports she has seen Dr. Echavarria, who is considering follow-up CT scan of chest to assess pulmonary embolism status.Which was done on August 09, 2020 showed interval resolution of bilateral pulmonary emboli described on June 04, 2020 improved right heart strain. Moderate emphysema slightly improved indeterminate mediastinal and hilar lymph nodes., So anticoagulation was discontinued by pulmonology Mammogram done on October 31, 2020 showed there is a new nodule in the anterior lateral left breast measuring 6.8 mm, subsequently patient underwent spot compression view which showed no abnormality She is now on home oxygen-continuious. The Armidex was placed on hold when she was diagnosed with a DVT and pulmonary embolism because of risk of thromboembolism associated with Arimidex. She remains off any blood thinners. Came for follow-up, denies any specific complaints, no fever chills, no nausea or vomiting, no diarrhea or constipation, no melena or hematochezia, no hemoptysis hematemesis as per patient in August 2020 her follow-up CTA chest scan showed resolution of pulmonary embolism, at that time pulmonology discontinued her anticoagulation. Medications: Anastrozole 1 Tablet (of 1 mg) Oral daily, Aspirin 1 Tablet (of 81 mg) Oral daily, B-12 1 Tablet (of 1000 mcg) Oral daily, Budesonide-Formoterol Fumarate 1 puff(s) (of 160-4.5 mcg/act) Aerosol Inhalation b.i.d., CeleXA 1 Tablet (of 20 mg) Oral daily, Dicyclomine HCl 1 Tablet (of 20 mg) Oral four times a day, Donepezil HCl 1 Tablet (of 10 mg) Oral daily, Ferrous Sulfate 1 Tablet (of 325 (65 fe) mg) Oral daily, Furosemide 1 Tablet (of 40 mg) Oral daily, Gabapentin 1 Tablet (of 800 mg) Capsule Oral b.i.d., HYDROcodone-Acetaminophen 1 - 2 Tablet (of 5-325 mg) Oral q 4 hours PRN, Ipratropium [place] 1 puff(s) (of 0.02 %) Solution Inhalation four times a day PRN, Lisinopril 0.5 Tablet (of 20 mg) Oral daily, Magnesium 1 Tablet (of 400 mg) Oral daily, Pantoprazole Sodium 1 Tablet (of 40 mg) Tablet, enteric coated Oral daily, Potassium Chloride ER 1 Tablet (of 20 meq) Tablet, controlled release Oral daily, Rosuvastatin Calcium 1 Tablet (of 10 mg) Oral daily, tiZANidine HCl 1 Capsule (of 4 mg) Oral four times a day PRN, traMADol HCl 1 Tablet (of 50 mg) Oral t.i.d. PRN, Trelegy Ellipta Aerosol Powder, Breath Activated Inhalation Allergies: No Known Allergies. Review of Systems: Review of Systems is not available for this patient. Vital Signs: Performed on Nov 09, 2020 09:18 Height - 63.50 in Weight - 172.2 lbs (HIGH) BSA - 1.83 sq.m BMI - 30.03 (HIGH) Temperature - 97.6 F (LOW) Pulse - 60 /min Respiration - 18 /min BP - 152/75 mm(hg) (HIGH) O2 Sat - 94 % (LOW) Pain - 0 Fatigue - 10 Performance Status: 1 - No physically strenuous activity, but ambulatory and able to carry out light or sedentary work (e.g. office work, light house work). (ECOG) Physical Examination: Respiratory - Poor air entry otherwise clear, Cardiovascular - Regular rate and rhythm of heart, Gastrointestinal - Soft, bowel sounds present, Extremities - No visible edema. Lab/Imaging: Test performed on Sep 29, 2020 08:10 Sodium 143 mmol/L TSH 3.24 uIU/mL Potassium 4.3 mmol/L Chloride 103 mmol/L CO2 33 mmol/L Anion Gap 11.3 BUN 17 mg/dL Creatinine 0.8 mg/dL Cr Clearance (Est) 73.6200 mL/min Glucose 69 mg/dL Osmolality - Calculated 296 mOsm/kg Calcium 9.1 mg/dL Protein, Total 6.3 g/dL Albumin 3.6 g/dL Globulin 2.7 g/dL Bilirubin, Total 0.4 mg/dL ALT (SGPT) 10 U/L AST (SGOT) 18 U/L Alkaline Phosphatase 89 IU/L WBC 5.3 10 3/uL RBC 4.83 10 6/uL HGB 13.4 g/dL HCT 45.6 % MCV 94.4 fL MCH 27.7 pg MCHC 29.4 g/dL RDW 13.2 % Platelet Count 224 10 3/cmm MPV 9.0 fL Neutrophils 3.24 10 3/uL Lymphocytes 1.0 10 3/uL Monocytes 0.7 10 3/uL Eosinophils 0.3 10 3/uL Basophils 0.1 10 3/uL Neutrophil % 61.1 % Lymphocyte % 19.1 % Monocyte % 13.4 % Eosinophil % 4.9 % Basophils % 1.3 % NRBC % 0 % Impression: Infiltrating ductal carcinoma of right breast status post excisional biopsy with sentinel lymph node done on 02/26/2019 next Final pathology report showed 1 x 0.8 cm mass, clear surgical margins T1b, 0/1 sentinel lymph node showed metastatic disease N0 pStage 1A ER 95%, AK 94%, HER-2/raf negative by FISH, Ki-67 5% e.g. favorable Oncotype DX score, is 12, e.g. low risk, distance recurrence of metastases with aromatase inhibitor at 9 years is about 3% and absolute chemotherapy benefit is less than 1% , so started on Arimidex 1 mg by mouth daily for 5 years on 03/03/2019 along with vitamin D/calcium supplement, On hold due to episode of left leg DVT/pulmonary embolism s/p postlumpectomy radiation therapy to the right breast patient is scheduled to see Dr. Santana for EGD and colonoscopy regarding recent episode of GI bleeding while on anticoagulation for left leg DVT and pulmonary embolism, causing drop in her hemoglobin to 7.2 g requiring blood transfusion. Subsequently Eliquis was discontinued and inferior vena cava filter was placed in on June 27, 2020. And her Arimidex was also put on hold after diagnosis with left leg DVT and pulmonary embolism.Follow-up CT chest done in August 2020 showed resolution of pulmonary embolism, at that time pulmonology discontinued anticoagulation As far as the breast cancer is concerned, patient has low risk, early stage breast cancer, considering risk versus benefits, will continue to hold Arimidex until her GI bleeding issue is resolved and if patient can tolerate low-dose anticoagulation then we may consider hormone therapy for breast cancer. Plan: Discussed with patient regarding her labs white blood count 5.7 hemoglobin 13.1 hematocrit 43.2 platelets 214,000 CMP within normal limits Clinically, patient doing well with no new signs symptom suggestive of recurrence of disease, patient is off anticoagulation since August 2020 as as her follow-up CTA chest done in August 2020 showed resolution of pulmonary embolism at that time pulmonology discontinued anticoagulation. Since then patient has no other active issues, at this point we will consider restarting her Arimidex 1 mg p.o. daily along with vitamin D and then she will return to clinic in 3 month with CBC CMP Signed By: Arabella Collins M.D. <<Signature on File>>
== END 2020-11-09 05:34 | disposition home or self-care (01) ==
LOC: ONCMED 05:35
PROVIDERS: PCP Family Medicine; Visit Provider Internal Medicine Hematology & Oncology
DX: C50.411 Malignant neoplasm of upper-outer quadrant of right female breast (principal); Z17.0 Estrogen receptor positive status [ER+]; Z92.23 Personal history of estrogen therapy; Z86.711 Personal history of pulmonary embolism
CPT/HCPCS: 36415; 80053; 85025; 99214

== ENCOUNTER 2020-11-10 08:06 | Outpatient (CLI) | payer MEDICARE, SELFPAY ==
--- NOTE | 2020-11-10 08:15 | US_ITS ---
WS: [id number] ADDITIONAL VIEWS LEFT MAMMOGRAM LEFT BREAST ULTRASOUND HISTORY: ABNORMAL MAMMOGRAM COMPARISON: 10/31/2020, LEFT MAMMOGRAM: Spot compression views and true ML. Nodule persists measuring 7 mm in the lateral inferior anterior breast. There may be an adjacent more anterior nodule. The ducts appear slightly prominent anteriorly. LEFT BREAST ULTRASOUND 2-D and color Doppler imaging submitted. Ultrasound at 5:00 at the areolar demonstrates a 6 x 6 x 7 mm cystic mass. There are numerous adjacen t ducts. No additional mass is identified. No solid mass. No mass within the ducts. US/US breast LT limited* [id number] IMPRESSION: BI-RADS: 2-Benign FOLLOW UP: 1 Year Follow-up Bilateral mammography and ultrasound there is a simple cyst and some mildly pro minent ducts in the anterior LEFT breast. No intraductal mass or solid mass lora ntified.
== END 2020-11-10 08:07 | disposition home or self-care (01) ==
LOC: RADSHAW 08:07
PROVIDERS: PCP Family Medicine; Visit Provider Nurse Practitioner
DX: R92.8 Other abnormal and inconclusive findings on diagnostic imaging of breast (principal); N60.02 Solitary cyst of left breast
CPT/HCPCS: 76642; 77065

== ENCOUNTER 2021-03-28 16:07 | Emergency (ER) | payer MEDICARE, SELFPAY ==
[2021-03-28 16:37] VITALS: BP 138/73; PULSE 62; RESP 19; TEMP 37.3; O2SAT 99; BMI 31.6
[2021-03-28 18:18] LABS: Basophils # 0.1 10^3/uL (0.0-0.1); Basophils % 0.9 %; Eosinophils # 0.3 10^3/uL (0.0-0.8); Eosinophils % 4.2 %; Hematocrit 34.1 % (37.0-47.0); Hemoglobin 10.1 g/dL (11.5-15.3); Lymphocytes % 14.5 %; Mean Corpuscular HGB Conc 29.6 g/dL (30.0-36.0); Mean Corpuscular Hemoglobin 29.2 pg (28.0-34.0); Mean Corpuscular Volume 98.6 fL (81-99); Mean Platelet Volume 8.7 fL (7.4-10.4); Monocytes % 14.2 %; Neutrophils # 4.39 10^3/uL (1.8-7.7); Neutrophils % 65.6 %; Nucleated Red Blood Cells % 0 %; Platelet Count 292 10^3/cmm (130-400); Red Blood Count 3.46 10^6/uL (4.1-5.3); Red Cell Distribution Width 13.4 % (12.1-15.1); White Blood Count 6.7 10^3/uL (4.0-10.0)
[2021-03-28 18:32] LABS: INR 0.92 (0.8-1.2)
[2021-03-28 18:47] LABS: Alanine Aminotransferase 8 U/L (0-33); Albumin Level 3.5 g/dL (3.5-5.2); Alkaline Phosphatase 76 IU/L (35-105); Anion Gap 11.5 (5-19); Aspartate Amino Transferase 20 U/L (0-32); Blood Urea Nitrogen 16 mg/dL (8-23); Calcium 8.4 mg/dL (8.5-10.5); Carbon Dioxide 40 mmol/L (22-29); Chloride 95 mmol/L (98-107); Creatinine Clr Calc Pharmacy 50.8027; Globulin 2.6 g/dL (1.3-4.6); Glucose 95 mg/dL (65-115); NT Pro B Type Natriuretic Pept 192 pg/mL (0-450); Osmolality Calculated 297 mOsm/kg (285-295); Potassium 3.5 mmol/L (3.5-5.1); Sodium 143 mmol/L (136-145); Total Bilirubin 0.3 mg/dL (0.15-1.2); Total Protein 6.1 g/dL (6.6-8.7)
== END 2021-03-29 00:29 ==
LOC: ER 16:16
PROVIDERS: Physician Assistant; Emergency Provider Family Medicine; PCP Family Medicine
DX: R22.41 Localized swelling, mass and lump, right lower limb (principal); Z53.21 Procedure and treatment not carried out due to patient leaving prior to being seen by health care provider; Z99.81 Dependence on supplemental oxygen
CPT/HCPCS: 80053; 83880; 85025; 85610; 85730

== ENCOUNTER 2021-04-07 09:30 | Emergency (ER) | payer MEDICARE, SELFPAY ==
[2021-04-07 09:46] VITALS: BP 150/53; PULSE 67; RESP 16; TEMP 36.6; O2SAT 99; BMI 33.6
[2021-04-07 09:49] VITALS: BP 150/53; PULSE 66; RESP 17; O2SAT 100
--- NOTE | 2021-04-07 10:10 | ECG_ITS ---
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 Measurements Intervals [place] Rate: 57 P: 61 FL: 163 QRS: 51 QRSD: 100 T: 74 QT: 452 QTc: 443 Interpretive Statements SINUS BRADYCARDIA Compared to ECG 06/23/2020 22:02:43 Intraventricular conduction delay no longer present Electronically Signed On 04-07-2021 13:51:40 CDT by Isaura Woodard M.D. [id number]
--- NOTE | 2021-04-07 10:10 | CT_ITS ---
WS: [id number] CT CHEST ANGIOGRAPHY WITH REFORMATS HISTORY: known DVT, chest discomfort TECHNIQUE: Contiguous axial images are obtained through the chest during arterial injection of intrav enous contrast. Images are reconstructed to evaluate the pulmonary arteries. MIP imaging also reviewe d. All CT scans at [facility] use at least one of these dose optimization techniques: aut omated exposure control; mA and/or kV adjustment per patient size (includes targeted exams where dose is matched to clinical indication); or iterative reconstruction. CONTRAST: Visipaque 320; 95 mL IV. DLP: 513.97 mGy.cm COMPARISON: 08/09/2020 Excellent opacification of the pulmonary arteries. No filling defects or pulmonary embolism. Pulmonar y artery size is slightly enlarged. Mild atherosclerosis aorta. There is mild enlargement of the LEFT heart chambers but no interval change. No pericardial or pleural effusion. Hyperinflated lungs with centrilobular emphysema. No pulmonary nodules or pneumonia. No significant m ediastinal or hilar adenopathy. No hiatal hernia. Nonobstructing calcifications in the LEFT kidney. There is a hypodensity in the LEFT kidney also whic h cannot be further characterized. No adrenal mass. Advanced degenerative changes throughout the thoracic spine. No fractures. CT/CT angio chest PE protcl [id number] IMPRESSION: 1. No pulmonary embolism. 2. No pneumonia. 3. Chronic emphysema.
[2021-04-07 10:32] LABS: Basophils # 0.1 10^3/uL (0.0-0.1); Basophils % 1.1 %; Eosinophils # 0.4 10^3/uL (0.0-0.8); Eosinophils % 5.5 %; Hematocrit 35.8 % (37.0-47.0); Hemoglobin 10.6 g/dL (11.5-15.3); Lymphocytes # 0.9 10^3/uL (0.8-4.8); Lymphocytes % 13.1 %; Mean Corpuscular HGB Conc 29.6 g/dL (30.0-36.0); Mean Corpuscular Hemoglobin 28.5 pg (28.0-34.0); Mean Corpuscular Volume 96.2 fL (81-99); Monocytes # 1.1 10^3/uL (0.2-0.9); Monocytes % 15.1 %; Neutrophils # 4.52 10^3/uL (1.8-7.7); Neutrophils % 64.9 %; Nucleated Red Blood Cells % 0 %; Platelet Count 326 10^3/cmm (130-400); Red Blood Count 3.72 10^6/uL (4.1-5.3); Red Cell Distribution Width 13.3 % (12.1-15.1)
--- NOTE | 2021-04-07 10:32 | ED_ITS ---
HPI - General Adult General: Chief complaint: General Medical Stated complaint: SOB, thoracic pain Time Seen by Provider: 04/07/21 09:43 History of Present Illness: HPI narrative: 75-year-old female presents emergency room with complaint of slight chest discomfort and shortness of breath. Patient was recently diagnosed with DVTs and restarted on Eliquis. She had previously had DVTs and PEs was put on Eliquis but it was stopped during hospitalization because of a GI bleed. I have not reviewed the records at this point but according to her report they were not sure of the source of the GI bleed specifically. She did have a IVC filter placed she was restarted on the Eliquis yesterday because of the PEs. She is neither tachycardic tachypneic or hypoxic at the time of presentation. She has no radiating chest pain. She has no history of coronary artery disease. Onset (ago): hour(s) Location: chest Radiation: non-radiation Severity: mild Relieving factors: none Exacerbating factors: none Associated symptoms: Reports short of breath; Deny chest pain, confusion, cough, diaphoresis, decreased appetite, dyspnea, fevers/chills, headache(s), malaise, nausea, rash, palpitations, seizures, syncope, vomiting or weakness Treatments prior to arrival: other (Anticoagulants) Review of Systems Const: Denies: malaise or diaphoresis ENMT: Denies: throat pain, ear or mastoid pain, nasal discharge or nasal congestion Card: Denies: chest pain, palpitations or syncope Resp: Denies: dyspnea GI: Denies: nausea or vomiting : Denies: flank pain, difficulty voiding, dysuria, urinary frequency or urinary urgency Skin/Breast: Denies: rash Neuro: Denies: headache(s) or confusion PFS ED PFSH: Medical History Acute depression Alzheimer disease B12 deficiency Bradycardia Patient states her heart rate runs in 40s to 50s at home Breast cancer CHF (congestive heart failure) Chronic respiratory failure with hypoxia and hypercapnia COPD (chronic obstructive pulmonary disease) COPD (chronic obstructive pulmonary disease) D-dimer, elevated GERD (gastroesophageal reflux disease) Hematoma Small complex fluid lesion adjacent to superficial thrombophlebitis in the left calf, 26 x 10 x 24 mm, HTN (hypertension) Hyperlipidemia IBS (irritable bowel syndrome) Leg swelling Muscle spasm Obstructive sleep apnea Pulmonary emboli Rheumatoid arthritis Seasonal allergic rhinitis Superficial thrombophlebitis Tachycardia Varicose veins of left leg with edema Surgical History H/O neck surgery H/O shoulder surgery H/O wrist surgery H/O: knee surgery History of back surgery History of cholecystectomy History of ear surgery History of hysterectomy History of lumpectomy of right breast Family History Father CAD (coronary artery disease) Mother CAD (coronary artery disease) Brother CAD (coronary artery disease) Sister Cancer Other Diabetes Social History Smoking and tobacco status: former smoker Quit status (tobacco): has quit using tobacco Year quit tobacco: 1995 - 1PPD x 40 Years Alcohol intake: never Lives independently: Yes Household members: spouse Marital status: Current occupational status: retired History of recent travel: No Current gender identity: Female Physical Exam Const: COMMON NORMALS: no acute distress GENERAL APPEARANCE: cooperative and comfortable ORIENTATION/CONSCIOUSNESS: Yes awake, Yes oriented to person, Yes oriented to place and Yes oriented to time HENMT: COMMON NORMALS: normocephalic, atraumatic, hearing grossly normal bilaterally, external ears normal, EAC's normal, TM's normal bilaterally, Normal nasal mucous membranes and turbinates present, moist oral mucous membranes and oropharynx normal HEAD & SCALP: normocephalic and atraumatic NOSE: Normal nasal mucous membranes and turbinates present EXTERNAL EAR: Yes external ears normal EXTERNAL AUDITORY CANAL: EAC's normal TYMPANIC MEMBRANE: TM's normal bilaterally Neck/C-Spine: COMMON NORMALS: no JVD Resp: COMMON NORMALS: normal respiratory effort, No retractions, No use of accessory muscles and clear to auscultation bilaterally AUSCULTATION: clear to auscultation bilaterally Cardio: COMMON NORMALS: no JVD, regular rate, regular rhythm and No murmurs present (Cardio) RATE: regular rate RHYTHM: regular rhythm GI: COMMON NORMALS: Soft to palpation and No hepatosplenomegaly present AUSCULTATION: Yes normoactive bowel sounds PALPATION: Yes Soft to palpation, No Tenderness to palpation present (GI), No Guarding due to palpation present (GI) and Yes No hepatosplenomegaly present Extremity: COMMON NORMALS: normal to inspection, capillary refill normal, no clubbing, cyanosis or edema, no calf tenderness and no pedal edema Neuro: SENSORIUM/ORIENTATION: Yes oriented to person, Yes oriented to place a nd Yes oriented to time Skin: COMMON NORMALS: no rashes or lesions noted GENERAL SKIN EXAM: no rashes or lesions noted Course Vital Signs: Vital signs: Vital Signs Temperature 97.9 F 04/07/21 09:46 Pulse Rate 62 04/07/21 12:00 Respiratory Rate 18 04/07/21 12:00 Blood Pressure 150/44 04/07/21 12:00 Pulse Oximetry 100 04/07/21 11:00 MDM - General Adult MDM Narrative: Medical decision making narrative: Patient is currently on Shirley martina. Continue her Eliquis there is no evidence of PE return if has problems reviewed labs and imaging findings with the patient as well as EMG. Lab Data: Labs: Lab Results 04/07/21 04/07/21 Range/Units 10:10 10:10 WBC 7.0 (4.0-10.0) 10^3/ uL RBC 3.72 L (4.1-5.3) 10^6/u L Hgb 10.6 L (11.5-15.3) g/dL Hct 35.8 L (37.0-47.0) % MCV 96.2 (81-99) fL MCH 28.5 (28.0-34.0) pg MCHC 29.6 L (30.0-36.0) g/dL RDW 13.3 (12.1-15.1) % Plt Count 326 (130-400) 10^3/c mm MPV 9.0 (7.4-10.4) fL Neut % (Auto) 64.9 % Lymph % (Auto) 13.1 % [place] % (Auto) 15.1 % Eos % (Auto) 5.5 % Baso % (Auto) 1.1 % Neut # (Auto) 4.52 (1.8-7.7) 10^3/u L Lymph # (Auto) 0.9 (0.8-4.8) 10^3/u L [place] # (Auto) 1.1 H (0.2-0.9) 10^3/u L Eos # (Auto) 0.4 (0.0-0.8) 10^3/u L Baso # (Auto) 0.1 (0.0-0.1) 10^3/u L Nucleated RBC % (a uto) 0 % Nucleated RBCs # 0.0 /100WBC Sodium 142 (136-145) mmol/L Potassium 3.5 (3.5-5.1) mmol/L Chloride 96 L (98-107) mmol/L Carbon Dioxide 38 H (22-29) mmol/L Anion Gap 11.5 (5-19) BUN 17 (8-23) mg/dL Creatinine 1.1 H (0.5-0.9) mg/dL GFR Calculation Not Reportable Glucose 77 (65-115) mg/dL Calculated Osmolal ity 294 (285-295) mOsm/k g Calcium 8.4 L (8.5-10.5) mg/dL Total Bilirubin 0.4 (0.15-1.2) mg/dL AST 23 (0-32) U/L ALT 6 (0-33) U/L Alkaline Phosphata se 81 (35-105) IU/L Total Protein 6.3 L (6.6-8.7) g/dL Albumin 3.7 (3.5-5.2) g/dL Globulin 2.6 (1.3-4.6) g/dL Discharge Plan Discharge Patient Disposition: Home Clinical Impression: DVT (deep venous thrombosis) Condition: Stable Prescriptions: No Action nitroglycerin 0.4 mg tablet, sublingual 0.4 mg sublingual Q5M PRN (Reason: Chest Pain) RF: 0 gabapentin 300 mg capsule See Rx Instructions .ROUTE .COMPLEX RF: 0 rosuvastatin [Crestor] 10 mg tablet 10 mg PO DAILY RF: 0 donepezil 10 mg tablet 10 mg PO DAILY RF: 0 potassium chloride [Klor-Con M20] 20 mEq tablet,ER particles/crystals 20 meq PO DAILY RF: 0 citalopram 20 mg tablet 20 mg PO DAILY RF: 0 ferrous sulfate 324 mg (65 mg iron) tablet,delayed release (DR/EC) 324 mg PO DAILY RF: 0 mecobalamin (vitamin B12) 1,000 mcg tablet,chewable 1,000 mcg PO DAILY RF: 0 aspirin [Adult Aspirin Regimen] 81 mg tablet,delayed release (DR/EC) 81 mg PO DAILY RF: 0 Hold Instructions: Resume on 07/09/20. until seen by primary care magnesium oxide 500 mg capsule 500 mg PO DAILY RF: 0 fluticasone propionate [Flonase Allergy Relief] 50 mcg/actuation spray,suspension 1 spray INTRANASAL BID RF: 0 albuterol sulfate 2.5 mg /3 mL (0.083 %) solution for nebulization 2.5 mg INHALATION BID PRN (Reason: Shortness Of Breath Or Wheezing) RF: 0 Trelegy Ellipta 100-62.5-25 mcg blister with device 1 inh inhalation DAILY Qty: 60 RF: 6 anastrozole 1 mg Tablet 1 mg PO DAILY RF: 0 tramadol 50 mg Tablet 50 mg PO TID PRN (Reason: Pain) RF: 0 bumetanide 1 mg Tablet 1 mg PO BID MDD see pharmacy comment RF: 0 Eliquis 5 mg Tablet 5 mg PO BID RF: 0 dicyclomine 20 mg tablet 20 mg PO BID PRN (Reason: stomach cramps) RF: 0 pantoprazole 40 mg tablet,delayed release (DR/EC) 40 mg PO BID 30 Days Qty: 60 RF: 0 Discharge Orders: Discharge ED (Routine); Ordered 04/07/21 Ordered By: Bruce Londono Referrals: Zhang Gamboa MD [Primary Care Provider] - Patient Instructions: Opioid Safety Coding Level of Care Code 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
[2021-04-07 10:48] LABS: Alanine Aminotransferase 6 U/L (0-33); Albumin Level 3.7 g/dL (3.5-5.2); Alkaline Phosphatase 81 IU/L (35-105); Anion Gap 11.5 (5-19); Aspartate Amino Transferase 23 U/L (0-32); Blood Urea Nitrogen 17 mg/dL (8-23); Calcium 8.4 mg/dL (8.5-10.5); Carbon Dioxide 38 mmol/L (22-29); Chloride 96 mmol/L (98-107); Globulin 2.6 g/dL (1.3-4.6); Glucose 77 mg/dL (65-115); Osmolality Calculated 294 mOsm/kg (285-295); Potassium 3.5 mmol/L (3.5-5.1); Sodium 142 mmol/L (136-145); Total Bilirubin 0.4 mg/dL (0.15-1.2); Total Protein 6.3 g/dL (6.6-8.7)
[2021-04-07 11:00] VITALS: BP 141/57; PULSE 55; RESP 22; O2SAT 100
[2021-04-07] MEDS: iodixanol 320 mg/mL 100mL Btl IV (11:11)
[2021-04-07 12:00] VITALS: BP 150/44; PULSE 62; RESP 18
== END 2021-04-07 13:12 | disposition home or self-care (01) ==
PROVIDERS: Emergency Provider Family Medicine; PCP Family Medicine
DX: I82.409 Acute embolism and thrombosis of unspecified deep veins of unspecified lower extremity (principal); Z79.82 Long term (current) use of aspirin; Z79.01 Long term (current) use of anticoagulants; Z85.3 Personal history of malignant neoplasm of breast; I11.0 Hypertensive heart disease with heart failure; I50.9 Heart failure, unspecified; J44.9 Chronic obstructive pulmonary disease, unspecified; E78.5 Hyperlipidemia, unspecified; Z86.711 Personal history of pulmonary embolism; Z87.891 Personal history of nicotine dependence
CPT/HCPCS: 71275; 80053; 85025; 93005; 99283; Q9967

== ENCOUNTER → 2021-05-04 08:02 | Outpatient (BNVA) | payer MEDICARE, SELFPAY | PROVIDERS: PCP Family Medicine; Referring Provider Family Medicine; Visit Provider Specialist | DX: M25.579 Pain in unspecified ankle and joints of unspecified foot (principal); M25.471 Effusion, right ankle | CPT/HCPCS: 73610 ==

== ENCOUNTER 2021-07-09 11:08 | Outpatient (CLI) | payer MEDICARE, SELFPAY ==
--- NOTE | 2021-07-09 11:28 | XRR_ITS ---
PROCEDURE INFORMATION: Exam: XR Left Ribs Exam date and time: 07/09/2021 11:28 AM Age: 76 years old Clinical indication: Injury or trauma; Fall; Rib area, left side; Blunt trauma; Additional info: Pain after fall TECHNIQUE: Imaging protocol: XR Left ribs. Views: 2 views. COMPARISON: CT angio chest PE protcl [id number] 04/07/2021 11:09 AM FINDINGS: Bones/joints: Intact. No displaced fracture. Partially imaged cervical fusion plate and screws. Degenerative changes of the left shoulder. Lumbar fusion hardware Soft tissues: No acute findings appreciated. IVC filter and right upper quadrant surgical clips incidentally noted. XR/XR ribs LT 2V* [id number] IMPRESSION: No acute findings. Radiation Dose CTDIVOL = (mGy): DLP = (mGy-cm)
== END 2021-07-09 11:09 | disposition home or self-care (01) ==
PROVIDERS: PCP Family Medicine; Visit Provider Nurse Practitioner
DX: R07.81 Pleurodynia (principal)
CPT/HCPCS: 71100

== ENCOUNTER 2021-08-08 14:50 | Emergency (ER) | payer MEDICARE, SELFPAY ==
[2021-08-08] VITALS (9 sets, daily range): BP systolic 117–170; BP diastolic 44–64; PULSE 52–65; RESP 16–21; TEMP 36.6–37.1; O2SAT 98–100; BMI 31.1
--- NOTE | 2021-08-08 15:23 | ECG_ITS ---
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
--- NOTE | 2021-08-08 15:23 | XR_ITS ---
WS: [id number] Exam: XR chest 1V portable [id number] Date/Time of Exam: 08/08/2021 3:23 PM Reason For Exam: chest pain Comparison with rib study performed 07/09/2021. The lungs are fully expanded and clear. Normal cardiomediastinal structures. No pleural effusions. Th e lungs are hyperinflated. Bony elements are intact. There is hardware in the cervical spine secondar y to anterior fusion. Partially visualized hardware in the upper L-spine. XR/XR chest 1V portable [id number] IMPRESSION: 1. No acute cardiopulmonary finding. Pulmonary hyperinflation.
[2021-08-08 18:52] LABS: Basophils # 0.1 10^3/uL (0.0-0.1); Basophils % 0.7 %; Eosinophils # 0.3 10^3/uL (0.0-0.8); Lymphocytes # 1.1 10^3/uL (0.8-4.8); Lymphocytes % 15.6 %; Mean Corpuscular HGB Conc 24.5 g/dL (30.0-36.0); Mean Corpuscular Hemoglobin 20.2 pg (28.0-34.0); Mean Corpuscular Volume 82.5 fl (81-99); Monocytes # 0.9 10^3/uL (0.2-0.9); Monocytes % 12.1 %; Neutrophils # 4.72 10^3/uL (1.8-7.7); Neutrophils % 67.2 %; Nucleated Red Blood Cells % 0.3 %; Platelet Count 381 10^3/cmm (130-400); Red Blood Count 2.28 10^6/uL (4.1-5.3); Red Cell Distribution Width 16.9 % (12.1-15.1)
[2021-08-08 19:09] LABS: Alanine Aminotransferase 9 U/L (0-33); Albumin Level 3.7 g/dL (3.5-5.2); Alkaline Phosphatase 69 IU/L (35-105); Anion Gap 15.7 (5-19); Aspartate Amino Transferase 18 U/L (0-32); Blood Urea Nitrogen 22 mg/dL (8-23); Calcium 8.1 mg/dL (8.5-10.5); Carbon Dioxide 30 mmol/L (22-29); Chloride 97 mmol/L (98-107); Globulin 2.2 g/dL (1.3-4.6); Glucose 101 mg/dL (65-115); Osmolality Calculated 291 mOsm/kg (285-295); Potassium 3.7 mmol/L (3.5-5.1); Sodium 139 mmol/L (136-145); Total Bilirubin 0.3 mg/dL (0.15-1.2); Total Protein 5.9 g/dL (6.6-8.7)
[2021-08-08 19:11] LABS: Troponin(5th) Baseline 25 ng/L (0-10)
[2021-08-08 19:12] LABS: Creatinine Clr Calc Pharmacy 41.8333
[2021-08-08 19:15] LABS: Hematocrit 18.8 % (37.0-47.0); Hemoglobin 4.6 g/dL (11.5-15.3)
--- NOTE | 2021-08-08 19:59 | W.ED.GENADLT ---
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 He tells me that he is currently on iron supplementation concerns of GI bleeding. Patient tells me that previously she has had GI bleeding while on Eliquis. However her primary care doctor restarted her on Eliquis given concerns for progression of VTE's despite IVC. Patient tells me that she has had black tarry stool for the last few days has become increasingly more weak and lightheaded today. Patient went to see her public health technician and was told to come to the emergency room for concerns of GI bleeding. Denies any hemoptysis/hematemesis, fever/chills, history of cirrhosis, NSAID use, hematochezia or abdominal pain currently. Onset:acutely 3 days ago Duration:3 days Location:home Severity:severe Review of Systems Narrative: Constitutional: No fever, no chills. +generalized weakness HEENT: No vision changes CV: No chest pain, no palpitations PULM: no cough, no dyspnea. GI: No abdominal pain, no N/V/D. : No dysuria, +melena MSKEL: No muscle pain SKIN: No new rashes, no lesions. NEURO: No headache, no focal weakness. +light-headedness HEME: No visible bruises PSYCH: Normal mood PFSH ED PFSH: Medical History Acute depression Alzheimer disease B12 deficiency Bradycardia Patient states her heart rate runs in 40s to 50s at home Breast cancer CHF (congestive heart failure) Chronic respiratory failure with hypoxia and hypercapnia COPD (chronic obstructive pulmonary disease) COPD (chronic obstructive pulmonary disease) D-dimer, elevated GERD (gastroesophageal reflux disease) Hematoma Small complex fluid lesion adjacent to superficial thrombophlebitis in the left calf, 26 x 10 x 24 mm, HTN (hypertension) Hyperlipidemia IBS (irritable bowel syndrome) Leg swelling Muscle spasm Obstructive sleep apnea Pulmonary emboli Rheumatoid arthritis Seasonal allergic rhinitis Superficial thrombophlebitis Tachycardia Varicose veins of left leg with edema Surgical History H/O neck surgery H/O shoulder surgery H/O wrist surgery H/O: knee surgery History of back surgery History of cholecystectomy History of ear surgery History of hysterectomy History of lumpectomy of right breast Family History Father CAD (coronary artery disease) Mother CAD (coronary artery disease) Brother CAD (coronary artery disease) Sister Cancer Other Diabetes Social History Quit status (tobacco): has quit using tobacco Year quit tobacco: 1995 - 1PPD x 40 Years Alcohol intake: never Lives independently: Yes Household members: spouse Marital status: Current occupational status: retired History of recent travel: No Current gender identity: Female Physical Exam Narrative: EXAM NARRATIVE: Head: Atraumatic Eyes: PERRL, conjunctiva without injection, +conjunctival pallor ENT: Mucous membrane moist NECK: Supple, ROM intact LUNGS: LCTAB, no crackles/rhonchi CV: RRR ABDOMEN: Soft, no focal TTP. NO guarding rebound, guarding, rigidity. No CVA tenderness to percussion. Neg Gray/Neg McBurney's point tenderness, no suprabupic tenderness to palpation. EXTREMITY: Normal ROM SKIN: No rash or erythema NEURO: Awake and alert, no focal motor deficits PSYCH: Normal mood and affect Course Vital Signs: Vital signs: Vital Signs Temperature 98.0 F 08/08/21 20:46 Pulse Rate 61 08/08/21 19:45 Respiratory Rate 16 08/08/21 19:45 Blood Pressure 153/59 08/08/21 18:46 Pulse Oximetry 100 08/08/21 19:45 MDM - General Adult MDM Narrative: Medical decision making narrative: 76-year-old female with history of recurrent VTE's status post IVC currently on Eliquis presenting to the emergency room with lightheadedness, melena, and generalized weakness x3 days. On exam, patient is hemodynamically stable with conjunctival pallor On reassessment, patient was found to have a hemoglobin 4.6 which is a decrease from 10.6 on 04/07/2021. At this time, patient continues to be hemodynamically stable, vital signs stable. Patient status post Protonix 80 mg in the ED. Pending 2u of pRBC Discussed case with Dr. Ying who is covering the GI service today who recommended outpatient transfer given the fact that there is may be active GI bleed and requiring interventional EGD intsead of diagonstic EGD. Case was discussed with Dr. Brown who agreed with the transfer to [facility] for management GI bleeding/melena. Disposition: Transfer to outside hospital Lab Data: Labs: Lab Results 08/08/21 08/08/21 08/08/21 18:44 18:44 18:44 WBC 7.0 10^3/uL 10^3/ uL (4.0-10.0) RBC 2.28 10^6/uL L 10 ^6/uL (4.1-5.3) Hgb 4.6 g/dL L* g/dL (11.5-15.3) Hct 18.8 % L* % (37.0-47.0) MCV 82.5 fl fl (81-99) MCH 20.2 pg L pg (28.0-34.0) MCHC 24.5 g/dL L g/dL (30.0-36.0) RDW 16.9 % H % (12.1-15.1) Plt Count 381 10^3/cmm 10^3 /cmm (130-400) MPV 9.0 fL fL (7.4-10.4) Neut % (Auto) 67.2 % % Lymph % (Auto) 15.6 % % [place] % (Auto) 12.1 % % Eos % (Auto) 4.0 % % Baso % (Auto) 0.7 % % Neut # (Auto) 4.72 10^3/uL 10^3 /uL (1.8-7.7) Lymph # (Auto) 1.1 10^3/uL 10^3/ uL (0.8-4.8) [place] # (Auto) 0.9 10^3/uL 10^3/ uL (0.2-0.9) Eos # (Auto) 0.3 10^3/uL 10^3/ uL (0.0-0.8) Baso # (Auto) 0.1 10^3/uL 10^3/ uL (0.0-0.1) Nucleated RBC % (a uto) 0.3 % % Nucleated RBCs # 0.0 /100WBC /100W BC Sodium 139 mmol/L mmol/L (136-145) Potassium 3.7 mmol/L mmol/L (3.5-5.1) Chloride 97 mmol/L L mmol/ L (98-107) Carbon Dioxide 30 mmol/L H mmol/ L (22-29) Anion Gap 15.7 (5-19) BUN 22 mg/dL mg/dL (8-23) Creatinine 1.1 mg/dL H mg/dL (0.5-0.9) GFR Calculation Not Reportable Glucose 101 mg/dL mg/dL (65-115) Calculated Osmolal ity 291 mOsm/kg mOsm/ kg (285-295) Calcium 8.1 mg/dL L mg/dL (8.5-10.5) Total Bilirubin 0.3 mg/dL mg/dL (0.15-1.2) AST 18 U/L U/L (0-32) ALT 9 U/L U/L (0-33) Alkaline Phosphata se 69 IU/L IU/L (35-105) Troponin T Baselin e 25 ng/L H ng/L (0-10) Total Protein 5.9 g/dL L g/dL (6.6-8.7) Albumin 3.7 g/dL g/dL (3.5-5.2) Globulin 2.2 g/dL g/dL (1.3-4.6) Blood Type Rho(D) Type Antibody Screen Crossmatch 08/08/21 19:50 WBC RBC Hgb Hct MCV MCH MCHC RDW Plt Count MPV Neut % (Auto) Lymph % (Auto) [place] % (Auto) Eos % (Auto) Baso % (Auto) Neut # (Auto) Lymph # (Auto) [place] # (Auto) Eos # (Auto) Baso # (Auto) Nucleated RBC % (a uto) Nucleated RBCs # Sodium Potassium Chloride Carbon Dioxide Anion Gap BUN Creatinine GFR Calculation Glucose Calculated Osmolal ity Calcium Total Bilirubin AST ALT Alkaline Phosphata se Troponin T Baselin e Total Protein Albumin Globulin Blood Type O Negative Rho(D) Type Negative Antibody Screen Negative Crossmatch See Detail Discharge Plan Discharge Patient Disposition: Transfer to ED Clinical Impression: Acute GI bleeding, Melena Condition: Stable Prescriptions: No Action nitroglycerin 0.4 mg tablet, sublingual 0.4 mg sublingual Q5M PRN (Reason: Chest Pain) RF: 0 (DME) Power step arch support See Rx Instructions .Route .MEDSUPPLY Qty: 2 RF: 0 Trelegy Ellipta 100-62.5-25 mcg blister with device 1 inh inhalation DAILY 30 Days Qty: 60 RF: 6 metoprolol tartrate 25 mg tablet 12.5 mg PO BID RF: 0 gabapentin 300 mg capsule See Rx Instructions .ROUTE .COMPLEX RF: 0 rosuvastatin [Crestor] 10 mg tablet 10 mg PO DAILY RF: 0 donepezil 10 mg tablet 10 mg PO DAILY RF: 0 potassium chloride [Klor-Con M20] 20 mEq tablet,ER particles/crystals 20 meq PO DAILY RF: 0 citalopram 20 mg tablet 20 mg PO DAILY RF: 0 ferrous sulfate 324 mg (65 mg iron) tablet,delayed release (DR/EC) 324 mg PO DAILY RF: 0 mecobalamin (vitamin B12) 1,000 mcg tablet,chewable 1,000 mcg PO DAILY RF: 0 aspirin [Adult Aspirin Regimen] 81 mg tablet,delayed release (DR/EC) 81 mg PO DAILY RF: 0 Hold Instructions: Resume on 07/09/20. until seen by primary care magnesium oxide 500 mg capsule 500 mg PO DAILY RF: 0 fluticasone propionate [Flonase Allergy Relief] 50 mcg/actuation spray,suspension 1 spray INTRANASAL BID RF: 0 albuterol sulfate 2.5 mg /3 mL (0.083 %) solution for nebulization 2.5 mg INHALATION BID PRN (Reason: Shortness Of Breath Or Wheezing) RF: 0 anastrozole 1 mg Tablet 1 mg PO DAILY RF: 0 tramadol 50 mg Tablet 50 mg PO TID PRN (Reason: Pain) RF: 0 bumetanide 1 mg Tablet 1 mg PO BID MDD see pharmacy comment RF: 0 Eliquis 5 mg Tablet 5 mg PO BID RF: 0 dicyclomine 20 mg tablet 20 mg PO BID PRN (Reason: stomach cramps) RF: 0 pantoprazole 40 mg tablet,delayed release (DR/EC) 40 mg PO BID 30 Days Qty: 60 RF: 0 Referrals: Zhang Gamboa MD [Primary Care Provider] - Coding Level of Care Code ED Industrial Refrigeration Mechanic for Gus Monaco
[2021-08-08] MEDS: pantoprazole 40 mg SDV 80 MG IVP (20:08)
[2021-08-08 21:33] LABS: Troponin 5 2HR 21.24 ng/L (0-10); Troponin 5 2HR Delta -3.76 ABS# (0-10)
== END 2021-08-08 21:55 ==
PROVIDERS: Physician Assistant; Emergency Provider Emergency Medicine; PCP Family Medicine
DX: K92.1 Melena (principal); K92.2 Gastrointestinal hemorrhage, unspecified; Z79.01 Long term (current) use of anticoagulants; Z79.82 Long term (current) use of aspirin; G30.9 Alzheimer's disease, unspecified; F02.80 Dementia in other diseases classified elsewhere, unspecified severity, without behavioral disturbance, psychotic disturbance, mood disturbance, and anxiety; Z85.3 Personal history of malignant neoplasm of breast; I11.0 Hypertensive heart disease with heart failure; I50.9 Heart failure, unspecified; J44.9 Chronic obstructive pulmonary disease, unspecified; E78.5 Hyperlipidemia, unspecified; Z86.711 Personal history of pulmonary embolism; Z87.891 Personal history of nicotine dependence
CPT/HCPCS: 36430; 71045; 80053; 84484; 85025; 86850; 86900; 86920; 93005; 96374; 99284; C9113; P9016

== ENCOUNTER 2021-09-10 12:06 | Observation (INO) | payer MEDICARE, SELFPAY ==
[2021-09-10] VITALS (12 sets, daily range): BP systolic 135–161; BP diastolic 36–81; PULSE 52–65; RESP 16–22; TEMP 36.2–36.8; O2SAT 95–100; BMI 30.7
--- NOTE | 2021-09-10 12:23 | CTR_ITS ---
PROCEDURE INFORMATION: Exam: CT Lumbar Spine Without Contrast Exam date and time: 09/10/2021 12:23 PM Age: 76 years old Clinical indication: Injury or trauma; Fall; Blunt trauma (contusions or hematomas); Prior surgery; Additional info: Fall with pain and previous surgery TECHNIQUE: Imaging protocol: Computed tomography images of the lumbar spine without contrast. Radiation optimization: All CT scans at this facility use at least one of these dose optimization techniques: automated exposure control; mA and/or kV adjustment per patient size (includes targeted exams where dose is matched to clinical indication); or iterative reconstruction. COMPARISON: 1. CT lumbar spine wo con* [id number] 05/11/2020 8:[address] abdomen pelvis wo con [id number] 06/24/2020 3:33 PM RADIATION DOSE METRICS: Total DLP (mGy-cm): 2144.91 FINDINGS: Tubes, catheters and devices: Infrarenal IVC filter noted. The struts appear to extend beyond the margin of the cava. Vertebrae: Postsurgical changes with bilateral posterior fusion hardware spanning L2 through 4. Normal alignment. L1-L2: There is again disc space narrowing with uncovertebral joint hypertrophy contributing to mild narrowing of the central canal. No severe spinal canal stenosis. No significant neural foraminal narrowing. L2-L3: Large posterior laminectomy defect again noted. No significant stenosis. L3-L4: Large posterior laminectomy defect again noted. No significant stenosis. L4-L5: Large posterior laminectomy defect again noted. No significant stenosis. L5-S1: Left posterior laminectomy defect again noted. No significant stenosis. Other bones/joints: Generalized osteopenia. No acute fracture. Kidneys and ureters: Nonobstructive left renal calculi measuring up to 7 mm, similar to prior. No hydronephrosis. Soft tissues: Unremarkable. CT/CT lumbar spine wo con* [id number] IMPRESSION: 1. No acute findings. 2. Extensive postsurgical changes of the spine. No significant stenosis appreciated. 3. Nonobstructing left renal calculi. 4. Infrarenal IVC filter incidentally noted. This can be followed up by the physician who placed it.
--- NOTE | 2021-09-10 12:23 | XRR_ITS ---
PROCEDURE INFORMATION: Exam: XR Chest Exam date and time: 09/10/2021 12:23 PM Age: 76 years old Clinical indication: Cough and shortness of breath; Prior surgery; Surgery type: Neck; Patient HX: SOB, cough, n/v x 2days, HX copd, ex smoker TECHNIQUE: Imaging protocol: XR of the chest. Views: 1 view. COMPARISON: CR XR chest 1V portable [id number] 08/08/2021 3:43 PM FINDINGS: Lungs: Hyperinflated emphysematous lungs. Subtle right lower lobe ground-glass opacity increased from prior. No lobar consolidation. Pleural spaces: Unremarkable. No pleural effusion. No pneumothorax. Heart/Mediastinum: Unremarkable. No cardiomegaly. Bones/joints: Anterior cervical plate and screws. XR/XR chest 1V portable [id number] IMPRESSION: 1. Subtle right lower lobe ground-glass opacity increased from prior. Findings are nonspecific but may be related to developing pneumonitis. No lobar consolidation. 2. Emphysema.
--- NOTE | 2021-09-10 12:23 | ECG_ITS ---
[facility] Test Date: 2021-09-10 Pat Name: Maddison Jenkins Department: Room: Gender: Female Dope Pourer: : 1945 Requested By: Иван Ruvalcaba Order Number: [id number] John MD: Isaura Woodard M.D. Measurements Intervals [place] Rate: 60 P: 30 NV: 170 QRS: 61 QRSD: 109 T: 65 QT: 461 QTc: 461 Interpretive Statements SINUS RHYTHM PROLONGED QT INTERVAL Compared to ECG 08/08/2021 15:14:34 Prolonged QT interval now present Sinus bradycardia no longer present T-wave abnormality no longer present Electronically Signed On 09-12-2021 5:07:11 TAPPER HAND by Isaura Woodard M.D. [id number]
--- NOTE | 2021-09-10 12:28 | ED_ITS ---
HPI - SOB/Dyspnea General: Chief Complaint: Shortness of Breath/Dyspnea Stated Complaint: DIFF BREATHING Time Seen by Provider: 09/10/21 12:14 Source: patient and EMS Mode of arrival: ambulatory History of Present Illness: HPI Narrative: 76-year-old female presents emergency department chief complaint recent fall due to weakness patient apparently was picked up by EMS as she is unable to stand back up he reports he struck the back of her back she reports that she has had a Covid vaccination series reports some moderate weakness and shortness of breath has been ongoing progressively worse over the last 2 days she reports a fall that happened last night. The patient does report having underlying history of both heart and lung issues. She does report that she was recently diagnosed with blood clots with a past 1 year in which she has been on Eliquis in which roughly a month ago she was transferred out of our facility for a lower GI bleed of unknown etiology. Patient reports no rectal bleeding reports generalized malaise and fatigue with no other associated symptoms. MD elicited complaint: shortness of breath and cough Pertinent past history: COPD and congestive heart failure Onset (ago): day(s) (3) Context: recent illness Associated symptoms: Deny abdominal pain, chest pain, extremity pain, fever(s), nausea, palpitations or vomiting Review of Systems General: Reports: 10 or more systems reviewed and unremarkable except in HPI and below Const: Denies: fever(s), chills, fatigue or malaise Eyes: Denies: change in vision or blurry vision Card: Denies: chest pain or palpitations Resp: Reports: dyspnea and productive cough GI: Denies: abdominal pain, nausea or vomiting : Denies: flank pain Musc: Reports: back pain; Denies: extremity pain or extremity swelling Skin/Breast: Denies: rash or pruritus Neuro: Denies: headache(s) Psych: Denies: anxiety or depression Blayne/Lymph: Denies: easy bleeding All/Imm: Denies: urticaria, throat swelling or facial swelling PFSH ED PFSH: Medical History Acute depression Alzheimer disease B12 deficiency Bradycardia Patient states her heart rate runs in 40s to 50s at home Breast cancer CHF (congestive heart failure) Chronic respiratory failure with hypoxia and hypercapnia COPD (chronic obstructive pulmonary disease) COPD (chronic obstructive pulmonary disease) D-dimer, elevated GERD (gastroesophageal reflux disease) Hematoma Small complex fluid lesion adjacent to superficial thrombophlebitis in the left calf, 26 x 10 x 24 mm, HTN (hypertension) Hyperlipidemia IBS (irritable bowel syndrome) Leg swelling Muscle spasm Obstructive sleep apnea Pulmonary emboli Rheumatoid arthritis Seasonal allergic rhinitis Superficial thrombophlebitis Tachycardia Varicose veins of left leg with edema Surgical History H/O neck surgery H/O shoulder surgery H/O wrist surgery H/O: knee surgery History of back surgery History of cholecystectomy History of ear surgery History of hysterectomy History of lumpectomy of right breast Family History Father CAD (coronary artery disease) Mother CAD (coronary artery disease) Brother CAD (coronary artery disease) Sister Cancer Other Diabetes Social History Quit status (tobacco): has quit using tobacco Year quit tobacco: 1995 - 1PPD x 40 Years Alcohol intake: never Lives independently: Yes Household members: spouse Marital status: Current occupational status: retired History of recent travel: No Current gender identity: Female Physical Exam Narrative: EXAM NARRATIVE: Patient appears in no obvious acute respiratory distress nontoxic appearing Const: COMMON NORMALS: no acute distress, patient oriented x3 and healthy appearing HENMT: COMMON NORMALS: normocephalic and atraumatic HEAD & SCALP: normocephalic and atraumatic Eye: COMMON NORMALS: Equal, round and reactive pupils present and EOMs intact bilaterally PUPIL: Yes Equal, round and reactive pupils present Neck/C-Spine: COMMON NORMALS: full ROM, supple and no JVD Lymph: LYMPHATIC: no lymphadenopathy noted Chest: COMMONS NORMALS: normal inspection of the chest and normal palpation of entire chest wall Resp: COMMON NORMALS: normal respiratory effort (However reduced breath sounds appreciated bilaterally no obvious expiratory), No retractions and clear to auscultation bilaterally EFFORT & INSPECTION: Yes able to speak in complete sentences and Yes symmetric chest movement AUSCULTATION: clear to auscultation bilaterally Cardio: COMMON NORMALS: no JVD, regular rate and regular rhythm RATE: regular rate RHYTHM: regular rhythm GI: COMMON NORMALS: Normal to inspection, nondistended, normoactive bowel sounds present, Soft to palpation and non-tender INSPECTION: Yes normal to inspection PALPATION: Yes Soft to palpation : COMMON NORMALS: Yes no CVA tenderness BLADDER/KIDNEY EXAM: Yes no CVA tenderness Back/Pelvis: COMMON NORMALS: no CVA tenderness LUMBAR SPINE/LOWER BACK: Yes pain with ROM and Yes lumbar spinal tenderness Extremity: COMMON NORMALS: normal to inspection and full ROM Neuro: COMMON NORMALS: patient oriented x3, CN's II-XII intact bilaterally, moves all extremities and no focal motor deficits Psych: COMMON NORMALS: mental status grossly normal, Normal thought process present, cooperative and normal affect THOUGHT PROCESS: Normal thought process present Skin: COMMON NORMALS: no rashes or lesions noted GENERAL SKIN EXAM: no rashes or lesions noted Course Vital Signs: Vital signs: Vital Signs Temperature 97.1 F L 09/10/21 17:45 Pulse Rate 55 L 09/10/21 17:45 Respiratory Rate 20 H 09/10/21 17:45 Blood Pressure 161/39 09/10/21 17:45 Pulse Oximetry 100 09/10/21 17:45 MDM - SOB/Dyspnea MDM Narrative: Medical decision making narrative: Due to the patient's symptoms and condition lab work imaging will be obtained medication was provided for associated symptoms Covid swab will be obtained as well. We will continue to follow patient was found to be grossly anemic hemoglobin is 4.2 will be typing and crossing and giving 2 units of packed red blood cells. Patient's does report the patient was scheduled for repeat colonoscopy due to the unknown circumstances of why she was anemic before which there was concerns of a diverticular type bleed. Patient does not report any active bleeding at this time or changes to her stools. The does report her last several days the patient has had progressive fatigue and generalized paleness to her skin again at this time will be doing Covid tests due to the reticular pattern noted on her chest x-ray in which most she will need to either be admitted to our facility or transferred to an additional facility depending on bed availability we will continue to follow.. Medical Records: Attestation: I reviewed the patient's medical records. Lab Data: Labs: Lab Results 09/10/21 09/10/21 09/10/21 12:20 12:20 12:20 WBC 7.7 10^3/uL 10^3/ uL (4.0-10.0) RBC 1.89 10^6/uL L 10 ^6/uL (4.1-5.3) Hgb 4.2 g/dL L* g/dL (11.5-15.3) Hct 15.9 % L* % (37.0-47.0) MCV 84.1 fl fl (81-99) MCH 22.2 pg L pg (28.0-34.0) MCHC 26.4 g/dL L g/dL (30.0-36.0) RDW 19.9 % H % (12.1-15.1) Plt Count 333 10^3/cmm 10^3 /cmm (130-400) MPV 9.2 fL fL (7.4-10.4) Neut % (Auto) 69.9 % % Lymph % (Auto) 13.9 % % [place] % (Auto) 12.9 % % Eos % (Auto) 2.5 % % Baso % (Auto) 0.4 % % Reticulocyte % (Au to) Neut # (Auto) 5.39 10^3/uL 10^3 /uL (1.8-7.7) Lymph # (Auto) 1.1 10^3/uL 10^3/ uL (0.8-4.8) [place] # (Auto) 1.0 10^3/uL H 10^ 3/uL (0.2-0.9) Eos # (Auto) 0.2 10^3/uL 10^3/ uL (0.0-0.8) Baso # (Auto) 0.0 10^3/uL 10^3/ uL (0.0-0.1) Nucleated RBC % (a uto) 0.8 % % Nucleated RBCs # 0.1 /100WBC /100W BC Sodium 143 mmol/L mmol/L (136-145) Potassium 4.0 mmol/L mmol/L (3.5-5.1) Chloride 99 mmol/L mmol/L (98-107) Carbon Dioxide 29 mmol/L mmol/L (22-29) Anion Gap 19.0 (5-19) BUN 18 mg/dL mg/dL (8-23) Creatinine 0.9 mg/dL mg/dL (0.5-0.9) GFR Calculation Not Reportable Glucose 104 mg/dL mg/dL (65-115) Calculated Osmolal ity 298 mOsm/kg H mOs m/kg (285-295) Calcium 8.9 mg/dL mg/dL (8.5-10.5) Total Bilirubin 0.4 mg/dL mg/dL (0.15-1.2) AST 16 U/L U/L (0-32) ALT 6 U/L U/L (0-33) Alkaline Phosphata se 56 IU/L IU/L (35-105) Lactate Dehydrogen ase Troponin T Baselin e 28 ng/L H ng/L (0-10) Troponin T 120 Min [place] Delta Troponin T NT-Pro-B Natriuret Pep 1252 pg/mL H pg/m L (0-450) Total Protein 5.0 g/dL L g/dL (6.6-8.7) Albumin 3.5 g/dL g/dL (3.5-5.2) Globulin 1.5 g/dL g/dL (1.3-4.6) SARS-CoV-2 Ag (Rap id) Blood Type Rho(D) Type Antibody Screen SUSIE, Poly Interpre t Crossmatch 09/10/21 09/10/21 09/10/21 12:20 12:20 13:06 WBC RBC Hgb Hct MCV MCH MCHC RDW Plt Count MPV Neut % (Auto) Lymph % (Auto) [place] % (Auto) Eos % (Auto) Baso % (Auto) Reticulocyte % (Au to) 7.4 % H % (0.5-2.0) Neut # (Auto) Lymph # (Auto) [place] # (Auto) Eos # (Auto) Baso # (Auto) Nucleated RBC % (a uto) Nucleated RBCs # Sodium Potassium Chloride Carbon Dioxide Anion Gap BUN Creatinine GFR Calculation Glucose Calculated Osmolal ity Calcium Total Bilirubin AST ALT Alkaline Phosphata se Lactate Dehydrogen ase 223 U/L H U/L (135-214) Troponin T Baselin e Troponin T 120 Min [place] Delta Troponin T NT-Pro-B Natriuret Pep Total Protein Albumin Globulin SARS-CoV-2 Ag (Rap id) Blood Type O Negative Rho(D) Type Negative Antibody Screen Negative SUSIE, Poly Interpre t Crossmatch See Detail 09/10/21 09/10/21 09/10/21 13:06 14:19 14:37 WBC RBC Hgb Hct MCV MCH MCHC RDW Plt Count MPV Neut % (Auto) Lymph % (Auto) [place] % (Auto) Eos % (Auto) Baso % (Auto) Reticulocyte % (Au to) Neut # (Auto) Lymph # (Auto) [place] # (Auto) Eos # (Auto) Baso # (Auto) Nucleated RBC % (a uto) Nucleated RBCs # Sodium Potassium Chloride Carbon Dioxide Anion Gap BUN Creatinine GFR Calculation Glucose Calculated Osmolal ity Calcium Total Bilirubin AST ALT Alkaline Phosphata se Lactate Dehydrogen ase Troponin T Baselin e Troponin T 120 Min [place] 24.61 ng/L H ng/L (0-10) Delta Troponin T -3.39 ABS# L ABS# (0-10) NT-Pro-B Natriuret Pep Total Protein Albumin Globulin SARS-CoV-2 Ag (Rap id) Negative (Negative) Blood Type Rho(D) Type Antibody Screen SUSIE, Poly Interpre t Negative Crossmatch Discharge Plan Discharge Patient Disposition: Admitted As Inpatient Clinical Impression: Acute on chronic anemia Condition: Stable Coding Level of Care Code ED Field Sales Agent for Gus Fwd Exam Comprehensive
[2021-09-10 12:33] LABS: Eosinophils # 0.2 10^3/uL (0.0-0.8); Eosinophils % 2.5 %; Lymphocytes # 1.1 10^3/uL (0.8-4.8); Lymphocytes % 13.9 %
[2021-09-10 12:45] LABS: Troponin(5th) Baseline 28 ng/L (0-10)
--- NOTE | 2021-09-10 12:46 | PC.NURSE ---
PT PLACED ON CONTINUOUS SPO2, NIBP, AND CM.
[2021-09-10 12:55] LABS: Alanine Aminotransferase 6 U/L (0-33); Albumin Level 3.5 g/dL (3.5-5.2); Alkaline Phosphatase 56 IU/L (35-105); Aspartate Amino Transferase 16 U/L (0-32); Blood Urea Nitrogen 18 mg/dL (8-23); Calcium 8.9 mg/dL (8.5-10.5); Carbon Dioxide 29 mmol/L (22-29); Chloride 99 mmol/L (98-107); Globulin 1.5 g/dL (1.3-4.6); Glucose 104 mg/dL (65-115); NT Pro B Type Natriuretic Pept 1252 pg/mL (0-450); Osmolality Calculated 298 mOsm/kg (285-295); Sodium 143 mmol/L (136-145); Total Bilirubin 0.4 mg/dL (0.15-1.2)
[2021-09-10] MEDS: sodium chloride 0.9% 1,000 ML 30 ML IV (12:55)
[2021-09-10 12:56] LABS: Basophils % 0.4 %; Mean Corpuscular HGB Conc 26.4 g/dL (30.0-36.0); Mean Corpuscular Hemoglobin 22.2 pg (28.0-34.0); Mean Corpuscular Volume 84.1 fl (81-99); Mean Platelet Volume 9.2 fL (7.4-10.4); Monocytes % 12.9 %; Neutrophils # 5.39 10^3/uL (1.8-7.7); Neutrophils % 69.9 %; Nucleated Red Blood Cells # 0.1 /100WBC; Nucleated Red Blood Cells % 0.8 %; Platelet Count 333 10^3/cmm (130-400); Red Blood Count 1.89 10^6/uL (4.1-5.3); Red Cell Distribution Width 19.9 % (12.1-15.1); White Blood Count 7.7 10^3/uL (4.0-10.0)
[2021-09-10 12:59] LABS: Hematocrit 15.9 % (37.0-47.0); Hemoglobin 4.2 g/dL (11.5-15.3)
--- NOTE | 2021-09-10 14:23 | ECG_ITS ---
[facility] Test Date: 2021-09-10 Pat Name: Maddison Jenkins Department: Room: Gender: Female Industrial Design Engineer: : 1945 Requested By: Иван Ruvalcaba Order Number: [id number] John MD: Isaura Woodard M.D. Measurements Intervals [place] Rate: 59 P: 47 DC: 172 QRS: 48 QRSD: 116 T: 61 QT: 468 QTc: 467 Interpretive Statements SINUS BRADYCARDIA MODERATE INTRAVENTRICULAR CONDUCTION DELAY [110+ ms QRS DURATION] Compared to ECG 08/08/2021 15:14:34 Intraventricular conduction delay now present T-wave abnormality no longer present Electronically Signed On 09-12-2021 5:20:42 CANDLE MOLDER MACHINE by Isaura Woodard M.D. [id number]
[2021-09-10 15:03] LABS: Troponin 5 2HR 24.61 ng/L (0-10)
[2021-09-10 15:04] LABS: Troponin 5 2HR Delta -3.39 ABS# (0-10)
[2021-09-10 15:15] LABS: SARS Covid-2 Antigen Negative (Negative)
--- NOTE | 2021-09-10 16:15 | CTR_ITS ---
PROCEDURE INFORMATION: Exam: CT Abdomen And Pelvis With Contrast Exam date and time: 09/10/2021 4:15 PM Age: 76 years old Clinical indication: Abdominal tenderness; Prior surgery; Patient HX: Gi bleed TECHNIQUE: Imaging protocol: Computed tomography of the abdomen and pelvis with contrast. Radiation optimization: All CT scans at this facility use at least one of these dose optimization techniques: automated exposure control; mA and/or kV adjustment per patient size (includes targeted exams where dose is matched to clinical indication); or iterative reconstruction. Contrast material: OMNI 300; Contrast volume: 95 ml; Contrast route: INTRAVENOUS (IV); COMPARISON: CT abdomen pelvis wo con [id number] 06/24/2020 3:33 PM RADIATION DOSE METRICS: Total DLP (mGy-cm): 1330.65 FINDINGS: Pleural spaces: Trace right pleural effusion. Liver: 4 mm right hepatic hypodensity is most likely incidental if there is no history of malignancy. Gallbladder and bile ducts: The gallbladder is surgically absent. There is persisting dilatation of the biliary tree and common duct similar to June 2020. This may be physiologic as there is no visible obstructing stone or mass. Pancreas: Normal. No ductal dilation. Spleen: Normal. No splenomegaly. Adrenal glands: Normal. No mass. Kidneys and ureters: Unchanged small nonobstructing left intrarenal calculi. Several bilateral simple sub cm renal cysts. Stomach and bowel: There is formed stool throughout the colon. No fluid levels or evidence of active hemorrhage. Unremarkable small bowel. Unremarkable stomach. Appendix: No evidence of appendicitis. Intraperitoneal space: Unremarkable. No free air. No significant fluid collection. Vasculature: Unchanged IVC filter. Lymph nodes: Unremarkable. No enlarged lymph nodes. Urinary bladder: Unremarkable as visualized. Reproductive: The uterus and ovaries are surgically absent. Bones/joints: Chronic posterior lumbar metallic fusion between L2 and L4. Soft tissues: Small bilateral inguinal hernias consist of fatty tissue only. CT/CT abdomen pelvis w con* [id number] IMPRESSION: 1. No acute abdominal or pelvic findings. No hematoma or evidence of active GI bleed. 2. Enlarged biliary tree may be physiologic from cholecystectomy. Recommend correlation with laboratory tests. Appearance is similar to the prior scan. COMMENTS: 1. Consistent with the [employer]'s Incidental Findings Committee white paper (J Am Samaria Radiol 2018): Any incidental renal lesion less than 1 cm or classified as too small to characterize, or any incidental cystic renal lesion characterized as simple-appearing, is likely benign. No follow-up imaging is recommended for these lesions per consensus recommendations based on imaging criteria. 2. For patients with an IVC filter, recommend assessment for a management plan for the patient's IVC filter. If there is no established management plan, recommend referral to an interventional clinician on a nonemergent basis for evaluation.
[2021-09-10 16:29] LABS: Reticulocyte % 7.4 % (0.5-2.0)
[2021-09-10 16:40] LABS: Lactate Dehydrogenase 223 U/L (135-214)
--- NOTE | 2021-09-10 16:45 | PM.CONSULT ---
Providers/Reason For Consult Consulting Physician/Specialty*: Ed Spaulding MD Reason for Consult*: Severe anemia with concern of GI source Requesting Physician: Attending Physician: Dr Simpson Primary Care Provider: Zhang Gamboa MD History of Present Illness History of Present Illness Chief Complaint: Short of breath History of present illness: Ms.Norma Giovany Jenkins is a pleasant 76 year old female with history of chronic anemia with unknown etiology, apparently the patient went to [place] at some point last August 2021 and undergone an EGD and attempted colonoscopy but she was told that she had a lot of narrowing due to diverticulosis of the colon and the colonoscopy was not completed but a polyp was removed and was precancreous per her spouse's description. Also patient was told that she would need a barium enema due to the narrowing of the colon but that did not take place yet.Inspite of that she hasregular bowel movements and with normal caliber. Capsule endoscopy was never attempted due to the narrowing of the colon and concern of getting lodged but to my understanding patient was never undergone small bowel enteroscopy either. Patient presents to the emergency department today with shortness of breath, blood work showed a hemoglobin of 4.2 and hematocrit of 15.9 and platelet count of 333. Lumbar spine was obtained today as patient had previous back surgery and did show 1. No acute findings. 2. Extensive postsurgical changes of the spine. No significant stenosis appreciated. 3. Nonobstructing left renal calculi. 4. Infrarenal IVC filter incidentally noted. This can be followed up by the physician who placed it. I did evaluate the patient back in June 2020 and at that time she had a CTA that showed multiple bilateral pulmonary emboli including a nonocclusive saddle embolus and venous duplex lower extremity that showed left greater saphenous vein occlusive thrombus. And at that time I was consulted for potential evaluation for EGD. Also patient reported to me at that time that she had an EGD remotely that was normal and a colonoscopy was done back in March 2019 that showed normal findings per her description. General surgery was consulted today for further evaluation and potential intervention if needed. Also patient reports to me that she had history of right breast lumpectomy followed by radiation about 16 years ago and my concern that she may have developed bone marrow suppression. I asked the patient if she had seen and worked up by hematology service but she said she did not, also the patient reports no evidence of hematemesis or hematochezia and she was tested occult blood negative in stool per ED information. Patient Was seen and evaluated in ER room #16. In the presence of her spouse Review of Systems General: Reports: 10 or more systems reviewed and unremarkable except in HPI and below Meds/Allergies Home Medications and Allergies Home Medications Medication Instructions Recorded Confirmed Last Taken Type citalopram 20 mg tablet 20 mg PO DAILY 09/09/19 09/10/21 09/10/21 History donepezil 10 mg tablet 10 mg PO DAILY 09/09/19 09/10/21 09/10/21 History ferrous sulfate 324 mg (65 mg 324 mg PO DAILY tab 09/09/19 09/10/21 09/10/21 History iron) tablet,delayed release gabapentin 300 mg capsule See Rx Instructions .ROUTE .COMPLEX 09/09/19 09/10/21 09/10/21 History potassium chloride 20 mEq 20 meq PO DAILY tab 09/09/19 09/10/21 09/10/21 History tablet,extended release(part/cryst) rosuvastatin 10 mg tablet 10 mg PO DAILY 09/09/19 09/10/21 09/09/21 History aspirin 81 mg tablet,delayed 81 mg PO DAILY 12/10/19 09/10/21 09/10/21 History release fluticasone propionate 50 1 spray INTRANASAL BID 12/10/19 09/10/21 09/10/21 History mcg/actuation nasal spray,suspension magnesium oxide 500 mg capsule 500 mg PO DAILY 12/10/19 09/10/21 09/10/21 History mecobalamin (vitamin B12) 1,000 1,000 mcg PO DAILY tab 12/10/19 09/10/21 09/10/21 History mcg chewable tablet albuterol sulfate 2.5 mg INHALATION BID PRN ml 03/10/20 09/10/21 06/25/20 History dicyclomine 20 mg PO BID PRN 06/03/20 09/10/21 06/26/20 History pantoprazole 40 mg PO BID 30 Days #60 tab 06/25/20 09/10/21 09/10/21 Rx nitroglycerin 0.4 mg sublingual 0.4 mg SUBLINGUAL Q5M PRN 10/06/20 09/10/21 Unknown History tablet anastrozole 1 mg PO DAILY 04/07/21 09/10/21 09/10/21 History apixaban [Eliquis] 5 mg PO BID 04/07/21 09/10/21 09/10/21 History bumetanide 1 mg PO DAILY 04/07/21 09/10/21 09/10/21 History tramadol 50 mg PO TID PRN 04/07/21 09/10/21 Unknown History Power step arch support #2 ea NS 05/04/21 09/10/21 Unknown Rx fluticasone fur. 100 mcg-umeclid 1 inh INHALATION DAILY 30 Days #60 06/13/21 09/10/21 09/10/21 Rx 62.5 mcg-vilant 25 mcg ea inhalat.powder metoprolol tartrate 25 mg tablet 12.5 mg PO BID tab 08/08/21 09/10/21 09/10/21 History Allergies Allergy/AdvReac Type Severity Reaction Status Date / Time No Known Allergies Allergy Verified 09/10/21 17:08 Current Medications Current Medications Generic Name Dose Route Start Last Admin Trade Name Freq PRN Reason Stop Dose Admin Sodium Chloride 1,000 mls @ 30 mls/hr 09/10/21 12:30 09/10/21 12:55 Sodium Chloride 0.9% IV 30 mls/hr .Q24H SUJATA Administration PFSH Acute PFSH: Medical History Acute depression Alzheimer disease B12 deficiency Bradycardia Patient states her heart rate runs in 40s to 50s at home Breast cancer CHF (congestive heart failure) Chronic respiratory failure with hypoxia and hypercapnia COPD (chronic obstructive pulmonary disease) COPD (chronic obstructive pulmonary disease) D-dimer, elevated GERD (gastroesophageal reflux disease) Hematoma Small complex fluid lesion adjacent to superficial thrombophlebitis in the left calf, 26 x 10 x 24 mm, HTN (hypertension) Hyperlipidemia IBS (irritable bowel syndrome) Leg swelling Muscle spasm Obstructive sleep apnea Pulmonary emboli Rheumatoid arthritis Seasonal allergic rhinitis Superficial thrombophlebitis Tachycardia Varicose veins of left leg with edema Surgical History H/O neck surgery H/O shoulder surgery H/O wrist surgery H/O: knee surgery History of back surgery History of cholecystectomy History of ear surgery History of hysterectomy History of lumpectomy of right breast Family History Father CAD (coronary artery disease) Mother CAD (coronary artery disease) Brother CAD (coronary artery disease) Sister Cancer Other Diabetes Social History Quit status (tobacco): has quit using tobacco Year quit tobacco: 1995 1PPD x 40 Years Alcohol intake: never Lives independently: Yes Household members: spouse Marital status: Current occupational status: retired History of recent travel: No Current gender identity: Female Vitals/I&O/Wt Last Vital Signs Temp 98.2 F 09/10/21 14:51 Pulse 56 L 09/10/21 14:51 Resp 18 09/10/21 14:51 BP 147/73 09/10/21 14:51 Pulse Ox 100 09/10/21 14:51 09/10/21 09/10/21 09/10/21 06:59 14:59 22:59 Intake Total 0 / 0 Balance 0 / 0 Weight last 48 hrs Weight 168 lb Physical Exam Const: COMMON NORMALS: no acute distress and patient oriented x3 GENERAL APPEARANCE: cooperative ORIENTATION/CONSCIOUSNESS: Yes awake, Yes oriented to person, Yes oriented to place and Yes oriented to time HENMT: COMMON NORMALS: normocephalic HEAD & SCALP: normocephalic Eye: COMMON NORMALS: Equal, round and reactive pupils present and no scleral icterus PUPIL: Yes Equal, round and reactive pupils present Lymph: LYMPHATIC: no lymphadenopathy noted Chest: COMMONS NORMALS: normal inspection of the chest Resp: COMMON NORMALS: normal respiratory effort and clear to auscultation bilaterally AUSCULTATION: clear to auscultation bilaterally Cardio: COMMON NORMALS: S1 normal heart sound present and S2 normal heart sound present; negative for No murmurs present (Cardio) HEART SOUNDS: S1 normal heart sound present and S2 normal heart sound present GI: COMMON NORMALS: Soft to palpation; negative for No hepatosplenomegaly present INSPECTION: Yes normal to inspection PALPATION: Yes Soft to palpation, No Firmness to palpation present (GI), No Tenderness to palpation present (GI), No Guarding due to palpation present (GI), No Rigid due to palpation, No No hepatosplenomegaly present and Yes Other GI palpation findings present (Lower midline scar) Neuro: COMMON NORMALS: patient oriented x3 SENSORIUM/ORIENTATION: Yes oriented to person, Yes oriented to place and Yes oriented to time Psych: COMMON NORMALS: mental status grossly normal Skin: COMMON NORMALS: no rashes or lesions noted GENERAL SKIN EXAM: no rashes or lesions noted A&P Assessment and plan (1) Acute on chronic anemia: After thorough history and physical examination examination and reviewing the chart. I would recommend the following from surgical standpoint of view 1-patient will require a full anemia work-up to rule out medical underlying etiology and potential bone marrow biopsy down the road, I will defer to hematology consultation with that regard with coordination with the hospitalist service. 2-retrieve the EGD and colonoscopy reports from the outside hospital that were recently done for review. 3-likely the patient would benefit from small bowel enteroscopy and not capsule endoscopy as if she may have narrowing of the sigmoid colon that can get lodged.consider Barium enema at some point. 4-resuscitation and blood transfusion per protocol 5-continuous cardiac monitoring 6-patient can have clear liquid diet from surgical standpoint. 7.No indication for acute surgical intervention at this point Assurance and education All questions have been answered and all concerns have been addressed to patient's satisfaction. Thank you for consulting general surgery to participate taking care Status: Acute Consult Attestations Medical Necessity Statement: Per admitting service Time Spent in Patient Care: 16 - 35 minutes (>than 50% of time spent in counselling and/or direct pt care on unit). 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
--- NOTE | 2021-09-10 16:50 | PM.HP ---
Providers/Chief Complaint Primary Care Provider: Zhang Gamboa MD Chief Complaint: DIFF BREATHING History of Present Illness Maddison Jenkins is a 76 year old female who has history of pulmonary embolism, chronic anticoagulation with Eliquis, she also takes aspirin, from August she was transferred to [place] where EGD did not show any active bleeding ulcer however colonoscopy was limited secondary to scarring, she was asked to follow-up outpatient for further investigation barium enema, presenting today after sustaining a fall at home. Patient is stating that for the last 7 to 10 days she has been feeling extremely tired fatigued and lethargic. She gets short of breath on minimal exertion. She has not noticed any fever, chest pain, nausea, vomiting, hematochezia, melena or hemoptysis. Yesterday she was very weak and her gait was unstable today her legs gave out and she fell backwards and hit her lumbar area on the floor. She is denying syncopal event, seizure-like activities. Her heart rate normally runs low, in the ER she was hemodynamically stable heart rate in 50s, hemoglobin 4.2, I was asked to admit the patient as she is requiring blood transfusion, Dr. Spaulding already evaluated the patient in the ER Requesting records from [place] we will keep her on clear liquid diet for now Dr. Spaulding is not planning for any investigation or scope for now Requested autoimmune hemolytic anemia, iron level, B12 level, reticulocyte count and TIBC Troponin with negative delta BNP 1200, x-ray shows pneumonitis however no white count, she has been using 3L of oxygen at baseline at home Review of Systems Const: Reports: chills, body aches, change in appetite, fatigue and malaise Eyes: Denies: change in vision ENMT: Denies: throat pain Card: Reports: swelling of feet/ankles and dyspnea on exertion; Denies: chest pain Resp: Reports: dyspnea GI: Denies: abdominal pain, nausea, diarrhea, belching, hematochezia or melena : Denies: flank pain Musc: Denies: neck pain Skin/Breast: Denies: rash Neuro: Reports: numbness in extremities; Denies: weakness in extremities, frequent falls or Slurred speech present Psych: Denies: anxiety Endo: Denies: polyuria Blayne/Lymph: Denies: easy bruising All/Imm: Denies: urticaria Medications/Allergies Home Medications Medication Instructions Recorded Confirmed Last Taken Type citalopram 20 mg tablet 20 mg PO DAILY 09/09/19 09/10/21 09/10/21 History donepezil 10 mg tablet 10 mg PO DAILY 09/09/19 09/10/21 09/10/21 History ferrous sulfate 324 mg (65 mg 324 mg PO DAILY tab 09/09/19 09/10/21 09/10/21 History iron) tablet,delayed release gabapentin 300 mg capsule See Rx Instructions .ROUTE .COMPLEX 09/09/19 09/10/21 09/10/21 History potassium chloride 20 mEq 20 meq PO DAILY tab 09/09/19 09/10/21 09/10/21 History tablet,extended release(part/cryst) rosuvastatin 10 mg tablet 10 mg PO DAILY 09/09/19 09/10/21 09/09/21 History aspirin 81 mg tablet,delayed 81 mg PO DAILY 12/10/19 09/10/21 09/10/21 History release fluticasone propionate 50 1 spray INTRANASAL BID 12/10/19 09/10/21 09/10/21 History mcg/actuation nasal spray,suspension magnesium oxide 500 mg capsule 500 mg PO DAILY 12/10/19 09/10/21 09/10/21 History mecobalamin (vitamin B12) 1,000 1,000 mcg PO DAILY tab 12/10/19 09/10/21 09/10/21 History mcg chewable tablet albuterol sulfate 2.5 mg INHALATION BID PRN ml 03/10/20 09/10/21 06/25/20 History dicyclomine 20 mg PO BID PRN 06/03/20 09/10/21 06/26/20 History pantoprazole 40 mg PO BID 30 Days #60 tab 06/25/20 09/10/21 09/10/21 Rx nitroglycerin 0.4 mg sublingual 0.4 mg SUBLINGUAL Q5M PRN 10/06/20 09/10/21 Unknown History tablet anastrozole 1 mg PO DAILY 04/07/21 09/10/21 09/10/21 History apixaban [Eliquis] 5 mg PO BID 04/07/21 09/10/21 09/10/21 History bumetanide 1 mg PO DAILY 04/07/21 09/10/21 09/10/21 History tramadol 50 mg PO TID PRN 04/07/21 09/10/21 Unknown History Power step arch support #2 ea NS 05/04/21 09/10/21 Unknown Rx fluticasone fur. 100 mcg-umeclid 1 inh INHALATION DAILY 30 Days #60 06/13/21 09/10/21 09/10/21 Rx 62.5 mcg-vilant 25 mcg ea inhalat.powder metoprolol tartrate 25 mg tablet 12.5 mg PO BID tab 08/08/21 09/10/21 09/10/21 History Allergies Allergy/AdvReac Type Severity Reaction Status Date / Time No Known Allergies Allergy Verified 09/10/21 17:08 PFSH Acute PFSH: Medical History Acute depression Alzheimer disease B12 deficiency Bradycardia Patient states her heart rate runs in 40s to 50s at home Breast cancer CHF (congestive heart failure) Chronic respiratory failure with hypoxia and hypercapnia COPD (chronic obstructive pulmonary disease) COPD (chronic obstructive pulmonary disease) D-dimer, elevated GERD (gastroesophageal reflux disease) Hematoma Small complex fluid lesion adjacent to superficial thrombophlebitis in the left calf, 26 x 10 x 24 mm, HTN (hypertension) Hyperlipidemia IBS (irritable bowel syndrome) Leg swelling Muscle spasm Obstructive sleep apnea Pulmonary emboli Rheumatoid arthritis Seasonal allergic rhinitis Superficial thrombophlebitis Tachycardia Varicose veins of left leg with edema Surgical History H/O neck surgery H/O shoulder surgery H/O wrist surgery H/O: knee surgery History of back surgery History of cholecystectomy History of ear surgery History of hysterectomy History of lumpectomy of right breast Family History Father CAD (coronary artery disease) Mother CAD (coronary artery disease) Brother CAD (coronary artery disease) Sister Cancer Other Diabetes Social History Quit status (tobacco): has quit using tobacco Year quit tobacco: 1995 - 1PPD x 40 Years Alcohol intake: never Lives independently: Yes Household members: spouse Marital status: Current occupational status: retired History of recent travel: No Current gender identity: Female Vitals/I&O/Wt Last Vital Signs Temp 98.2 F 09/10/21 14:51 Pulse 56 L 09/10/21 14:51 Resp 18 09/10/21 14:51 BP 147/73 09/10/21 14:51 Pulse Ox 100 09/10/21 14:51 09/10/21 09/10/21 09/10/21 06:59 14:59 22:59 Intake Total 0 / 0 Balance 0 / 0 Weight last 48 hrs Weight 76.204 kg Physical Exam Narrative: EXAM NARRATIVE: Very pleasant elderly female Hemodynamically stable Pale complexion S1, S2 no murmur appreciated No signs of edema No signs of anasarca Lower extremity without active edema Saturating well on 3 L nasal cannula Nonfocal neuro exam EOMI, PERRLA at the bedside Very pleasant Appropriate mood and affect No active bleeding no signs of cellulitis Left-sided inguinal hernia Data : 09/10/21 12:20 09/10/21 12:20 A&P Assessment and plan (1) Acute on chronic anemia: Status: Acute (2) DVT (deep venous thrombosis): Status: Acute (3) Pulmonary emboli: Status: Acute Qualifiers: Acute cor pulmonale presence: without acute cor pulmonale Chronicity: chronic Pulmonary embolism type: unspecified Qualified Code(s): I27.82 - Chronic pulmonary embolism (4) Breast cancer: Status: Acute (5) Bradycardia: Status: Acute (6) Chronic kidney disease: Status: Acute Additional A&P Information Acute on chronic normocytic anemia Check iron panel B12 level, folate No active GI bleed Rule out autoimmune hemolytic anemia No history of splenomegaly Retrieve records of recent EGD and colonoscopy from [facility] Most likely she will need bone marrow biopsy Hemodynamically stable We will give her Lasix after blood transfusion Holding aspirin and Eliquis for now EF 53% echo done August [address] Spaulding's recommendation Chronic hypoxia without acute exacerbation Currently requiring 3 L oxygen which is her home requirement Signs of pneumonitis evident on the x-ray however she is afebrile, no leukocytosis, monitor for now I would not add any antibiotics for now History of DVT/PE status post IVC filter placement Dr. 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
[2021-09-10] MEDS: sodium chloride 0.9% 100 mL Bag 50 ML IV (17:40)
--- NOTE | 2021-09-10 18:04 | PC.NURSE ---
PT DENIES ANY TRANSFUSION REACTION SYMPTOMS.
[2021-09-10] MEDS: iohexol 300 mg/mL 100 mL Btl IV (18:20)
--- NOTE | 2021-09-10 18:23 | ECG_ITS ---
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 Measurements Intervals [place] Rate: 55 P: 62 MO: 178 QRS: 51 QRSD: 110 T: 64 QT: 482 QTc: 462 Interpretive Statements SINUS BRADYCARDIA Compared to ECG 09/10/2021 14:37:07 Intraventricular conduction delay no longer present Electronically Signed On 09-12-2021 5:19:38 SHIELD RUNNER by Isaura Woodard M.D. [id number]
--- NOTE | 2021-09-10 19:09 | PC.NURSE ---
REPORT GIVEN TO CESILIA HEWITT ASSUMED CARE.
[2021-09-10] MEDS: pantoprazole 40 mg SDV IVP (22:54)
[2021-09-11] VITALS (11 sets, daily range): BP systolic 113–151; BP diastolic 56–72; PULSE 58–73; RESP 15–18; TEMP 36.5–37; O2SAT 94–99
[2021-09-11 00:57] LABS: Folate Level 12.1 ng/mL (4.8-37.3)
[2021-09-11 00:58] LABS: Ferritin 12 ng/mL (15-150); Iron 233 ug/dL (37-145); Percent Saturation 60.5 % (20-50); Total Iron Binding Capacity 385 mcg/dl; Unsaturated Iron Binding 152 ug/dL (112-347); Vitamin B12 662 pg/mL (232-1245)
--- NOTE | 2021-09-11 01:30 | PC.NURSE ---
Patient in bed resting / no s/s of pain or discomfort. No needs noted at this time.
[2021-09-11 06:08] LABS: Basophils # 0.1 10^3/uL (0.0-0.1); Basophils % 0.8 %; Eosinophils # 0.3 10^3/uL (0.0-0.8); Eosinophils % 4.5 %; Lymphocytes # 0.8 10^3/uL (0.8-4.8); Lymphocytes % 12.6 %; Mean Corpuscular HGB Conc 29.5 g/dL (30.0-36.0); Mean Corpuscular Hemoglobin 25.7 pg (28.0-34.0); Mean Platelet Volume 9.3 fL (7.4-10.4); Monocytes % 15.4 %; Neutrophils # 4.25 10^3/uL (1.8-7.7); Neutrophils % 66.2 %; Nucleated Red Blood Cells # 0.1 /100WBC; Nucleated Red Blood Cells % 0.8 %; Platelet Count 247 10^3/cmm (130-400); Red Blood Count 2.53 10^6/uL (4.1-5.3); Red Cell Distribution Width 17.2 % (12.1-15.1); White Blood Count 6.4 10^3/uL (4.0-10.0)
--- NOTE | 2021-09-11 06:27 | PC.NURSE ---
Patient in bed resting. No s/s of pain or discomfort. No needs noted at this time.
[2021-09-11 06:38] LABS: Anion Gap 14.5 (5-19); Blood Urea Nitrogen 17 mg/dL (8-23); C Reactive Protein 2.4 mg/L (0.0-4.9); Calcium 8.7 mg/dL (8.5-10.5); Carbon Dioxide 30 mmol/L (22-29); Chloride 102 mmol/L (98-107); Glucose 85 mg/dL (65-115); Osmolality Calculated 297 mOsm/kg (285-295); Potassium 3.5 mmol/L (3.5-5.1); Sodium 143 mmol/L (136-145)
[2021-09-11 06:50] LABS: Hemoglobin 6.5 g/dL (11.5-15.3)
[2021-09-11] MEDS: ferrous sulfate EC 325 mg Tablet PO (09:15)
[2021-09-11] MEDS: cyanocobalamin 1,000 mcg Tablet 1000 MCG PO (09:16)
[2021-09-11] MEDS: atorvastatin 40 mg Tablet PO (09:16)
[2021-09-11] MEDS: citalopram 20 mg Tablet PO (09:16)
[2021-09-11] MEDS: donepezil 5 MG Tablet 10 MG PO (09:16)
[2021-09-11] MEDS: bumetanide 1 mg Tablet PO (09:16)
[2021-09-11] MEDS: pantoprazole 40 mg SDV IVP ×2 (09:16→17:27)
[2021-09-11] MEDS: potassium chloride ER 20 mEq Tablet PO (09:16)
[2021-09-11] MEDS: sodium chloride 0.9% (100 ml) 100 ML 10 ML (09:16)
--- NOTE | 2021-09-11 09:39 | PC.CHAP ---
Pastoral Care Encounter/Spiritual Assessment Type of Contact [] Declined dispatch lead visit [] Patient/Family/Request visit [] Outpatient visit [] Follow-up visit [] Physician referral [] Code/Alert [x] Routine visit [] Staff referral [] Actively dying [] Patient sleeping [] Family support [] [] Out of room [] Palliative care [] [] Receiving care in room [] Pre-surgical visit [] Trauma [] Long length of stay [] ICU visit [] Other: Relational/Emotional Strength [x] Patient feels connected with others/family/visitors/staff [] Distress [] Loneliness/isolation [] Abandonment Spirituality of Patient [x] Person of Deepali [] Attends Buddhism of their Deepali [x] Believes in Prayer [] Reads Bible or Yarsani materials [] There are Spiritual issues to be addressed Vice President Business Development Interventions [x] Prayer [x] Active listening [x] Non-anxious presence [x] Spiritual/emotional support [] Crisis/trauma care [] Spiritual counseling [] Bereavement support [] Provided bereavement packet [] Provided Bible/devotional materials [] Provided toy/stuffed animal, coloring book to patient or family member [] Provided Communion [] Anointing/[place] [] Salvation [x] Completed spiritual assessment [] Other: Impact on Illness or Injury [] Angry [] Fearful [] Anxious [] Often cries [] Exhaustion [] Unable to work [] Unable to attend buddhism [] Unable to walk/stand [] Unable to read [] Unable to drive [] Unable to eat/drink [] Unable to sleep [] Unable to be with family [] Patient intubated [] Other: Summary patient still has breathing problems Time spent with patient 10 min
[2021-09-11] MEDS: anastrozole 1 mg Tablet PO (10:46)
--- NOTE | 2021-09-11 11:01 | P.PN_ITS ---
Subjective Subjective: Interval history: Status post 2 unit PRBC hemoglobin 6.5, will request 1 more unit No active bleeding Investigation consistent with iron deficiency anemia, start Venofer, doses can be given every 2 weeks, case discussed with Dr. Collins there is no need of bone marrow biopsy as she has iron deficiency anemia which is evident with low ferritin IVC filter with struts beyond IVC, no signs of hematoma on CT abdomen pelvis, case discussed with Dr. Haddad as well this was placed around June last year Vitals/I&O/Wt Last Vital Signs Temp 97.7 F 09/11/21 09:48 Pulse 67 09/11/21 09:48 Resp 18 09/11/21 09:48 BP 145/61 09/11/21 09:48 Pulse Ox 99 09/11/21 09:48 09/10/21 09/11/21 09/11/21 22:59 06:59 14:59 Intake Total 1560 / 1560 120 / 120 Output Total 300 / 300 Balance 1560 / 1560 -300 / 1260 120 / 120 Weight last 48 hrs Weight 76.204 kg Weight 76.204 kg Physical Exam Narrative: EXAM NARRATIVE: patient is laying comfortably in her bed Saturating well on 3 L nasal cannula S1, S2 Abdomen soft No signs of edema Nonfocal neuro exam EOMI, PERRLA No joint swelling No active melanotic stools Data : 09/11/21 04:42 09/11/21 04:42 A&P Assessment and plan (1) Acute on chronic anemia: Status: Acute (2) Iron deficiency anemia: Status: Acute (3) Pulmonary emboli: Status: Acute Qualifiers: Acute cor pulmonale presence: without acute cor pulmonale Chronicity: chronic Pulmonary embolism type: unspecified Qualified Code(s): I27.82 - Chronic pulmonary embolism (4) Presence of IVC filter: Status: Acute Additional A&P Information Acute on chronic iron deficiency normocytic anemia Recent EGD colonoscopy was done in [place], reports are pending Will request PCP to send us latest records(daughter is stating that they were faxed to PCP recently) No need of bone marrow biopsy We will give her Venofer first dose today and can be repeated after 2 weeks Status post 2 units PRBC, will cover third unit today She has been consistent with iron supplementation at home, will add vitamin C, 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 Spaulding note for further details, appreciate general surgery recommendations Advance diet DNR/DNI IVC filter that was placed 06/22, struts beyond IVC however no active hematoma, abdomen nontender, Dr. Jameson will look at the images however no intervention needed at this point Attestations Medical Necessity Statement*: Plan to discharge her later patient has severe anemia, she is requiring parenteral iron, third unit PRBC pending today plan to discharge her tomorrow Time Spent in Patient Care: 16 - 35 minutes Coding Level of Care Code Acute It Security Consulting Director for Chg Fwd Diagnoses Acute on chronic anemia D64.9 Iron deficiency anemia D50.9 Pulmonary emboli I27.82 Acute cor pulmonale presence: without acute cor pulmonale Chronicity: chronic Pulmonary embolism type: unspecified Presence of IVC filter Z95.828
[2021-09-11] MEDS: iron sucrose 200 MG in sodium chloride 0.9% (100 ml) 100 ML 220 MG IV (12:49)
[2021-09-11 17:43] LABS: Hematocrit 28.1 % (37.0-47.0); Hemoglobin 8.4 g/dL (11.5-15.3)
--- NOTE | 2021-09-11 19:27 | PC.NURSE ---
Shift report received from Addis HEWITT. Patient in bed/resting. IV patent/SL. No s/s of pain or discomfort. O2 3L NC. No needs noted at this time.
[2021-09-11] MEDS: diphenhydrAMINE 25 mg Capsule PO (22:41)
[2021-09-12] VITALS: BP 129/64; PULSE 62; RESP 16; TEMP 36.8; O2SAT 100
--- NOTE | 2021-09-12 00:07 | PC.NURSE ---
Patient in bed/ resting. No s/s of pain or discomfort.
[2021-09-12 00:27] LABS: Adenovirus Not Detected (NOT DETECT); Chlamydia Pneumoniae Not Detected (NOT DETECT); Coronavirus 229E,HKU1,NL63,OC4 Not Detected (NOT DETECT); Human Metapneumovirus Not Detected (NOT DETECT); Human Rhinovirus/Enterovirus Not Detected (NOT DETECT); Influenza A Not Detected (NOT DETECT); Influenza A H1 Not Detected (NOT DETECT); Influenza A H1-2009 Not Detected (NOT DETECT); Influenza A H3 Not Detected (NOT DETECT); Influenza B Not Detected (NOT DETECT); Mycoplasma Pneumoniae Not Detected (NOT DETECT); Parainfluenza Virus Type 1 Not Detected (NOT DETECT); Parainfluenza Virus Type 2 Not Detected (NOT DETECT); Parainfluenza Virus Type 3 Not Detected (NOT DETECT); Parainfluenza Virus Type 4 Not Detected (NOT DETECT); Respiratory Syncytial Virus A Not Detected (NOT DETECT); Respiratory Syncytial Virus B Not Detected (NOT DETECT); SARS-COV-2 Not Detected (NOT DETECT)
--- NOTE | 2021-09-12 02:57 | PC.NURSE ---
Patient in bed sleeping. No s/s of pain or discomfort. No needs noted at this time.
[2021-09-12 04:00] VITALS: BP 120/69; PULSE 71; RESP 16; TEMP 36.8; O2SAT 97
[2021-09-12 07:02] LABS: Basophils # 0.1 10^3/uL (0.0-0.1); Eosinophils # 0.5 10^3/uL (0.0-0.8); Eosinophils % 6.9 %; Hematocrit 26.7 % (37.0-47.0); Lymphocytes # 0.7 10^3/uL (0.8-4.8); Lymphocytes % 10.7 %; Mean Corpuscular Hemoglobin 26.4 pg (28.0-34.0); Mean Corpuscular Volume 88.1 fl (81-99); Mean Platelet Volume 9.4 fL (7.4-10.4); Monocytes # 1.1 10^3/uL (0.2-0.9); Monocytes % 15.8 %; Neutrophils # 4.42 10^3/uL (1.8-7.7); Neutrophils % 64.4 %; Nucleated Red Blood Cells # 0.2 /100WBC; Nucleated Red Blood Cells % 2.2 %; Platelet Count 238 10^3/cmm (130-400); Red Blood Count 3.03 10^6/uL (4.1-5.3); Red Cell Distribution Width 17.7 % (12.1-15.1); White Blood Count 6.9 10^3/uL (4.0-10.0)
[2021-09-12 07:22] LABS: Anion Gap 13.2 (5-19); Blood Urea Nitrogen 10 mg/dL (8-23); Calcium 8.7 mg/dL (8.5-10.5); Carbon Dioxide 32 mmol/L (22-29); Chloride 102 mmol/L (98-107); Glucose 81 mg/dL (65-115); Osmolality Calculated 296 mOsm/kg (285-295); Potassium 3.2 mmol/L (3.5-5.1); Sodium 144 mmol/L (136-145)
[2021-09-12 07:40] VITALS: BP 149/64; PULSE 58; RESP 16; TEMP 36.9; O2SAT 96
[2021-09-12] MEDS: pantoprazole 40 mg SDV IVP (08:29)
[2021-09-12 09:27] VITALS: PULSE 63; RESP 18; O2SAT 97
[2021-09-12] MEDS: bumetanide 1 mg Tablet PO (09:58)
[2021-09-12] MEDS: atorvastatin 40 mg Tablet PO (09:58)
[2021-09-12] MEDS: ferrous sulfate EC 325 mg Tablet PO (09:58)
[2021-09-12] MEDS: donepezil 5 MG Tablet 10 MG PO (09:58)
[2021-09-12] MEDS: anastrozole 1 mg Tablet PO (09:58)
[2021-09-12] MEDS: potassium chloride ER 20 mEq Tablet PO (09:58)
[2021-09-12] MEDS: citalopram 20 mg Tablet PO (09:58)
[2021-09-12] MEDS: cyanocobalamin 1,000 mcg Tablet 1000 MCG PO (09:58)
[2021-09-12 11:44] VITALS: BP 138/76; PULSE 61; RESP 16; TEMP 36.8; O2SAT 96
--- NOTE | 2021-09-12 11:47 | PM.DCS ---
Discharge Providers Date of Admission: 09/10/21 17:20 Date of Discharge: September 12, 2021 Attending Provider at Admission: Chelsey Simpson MD Attending Provider at Discharge: Chelsey Simpson MD Primary Care Provider: Zhang Gamboa MD Diagnoses at Discharge Discharge Diagnosis (1) Acute on chronic anemia: Status: Acute (2) Iron deficiency anemia: Status: Acute (3) Pulmonary emboli: Status: Acute Qualifiers: Acute cor pulmonale presence: without acute cor pulmonale Chronicity: chronic Pulmonary embolism type: unspecified Qualified Code(s): I27.82 - Chronic pulmonary embolism (4) Presence of IVC filter: Status: Acute Reason for Visit Reason for Visit: DIFF BREATHING Hospital Course Hospital Course Patient was admitted on 09/11 after she was found to have extremely low hemoglobin around 4.2, she presented to the hospital after a fall which she attributed to weakness. She did not notice any hemoptysis, hematemesis or GI bleed. Recently she was seen at [place] where EGD and colonoscopy were attempted. No active source of GI bleed identified however she was diagnosed with internal hemorrhoids, diverticulosis without signs of diverticulitis, 3 polyps were identified 8 mm, 10 mm and 11 mm, sigmoid polyp was identified however it was lost during colonoscopy during retraction. Endoscope could not pass into the cecum from proximal colon because of luminal narrowing despite change in positioning and readjustment of the pediatric probe. EGD did not show varices, Gardiner's esophagus however 6 mm polyp was identified in gastric antrum, multiple biopsies were taken from gastric antrum and second portion of duodenum, no active ulcer was found, nonerosive gastritis was identified. Dr. Spaulding recommended enteroscopy instead of PillCam because of luminal narrowing. During hospitalization she required 3 units PRBC, she was diagnosed with severe iron deficiency anemia. She was given 1 bag of Venofer in the hospital, she will get total 5 doses 2-3 weeks apart. This case was discussed with Dr. Chua as well. I am holding her Eliquis and aspirin for next 1 week, will give her CBC prescription, outpatient follow-up with her PCP and Dr. Chua. I also discussed IVC filter placement with Dr. Jameson since there is no active bleeding or signs of retroperitoneal hematoma there is no plan to retrieve IVC filter at this point. Physical Exam Narrative: EXAM NARRATIVE: S1, S2 no murmur Abdomen soft Complexion improved Nonfocal neuro exam Saturating well on 3L nasal cannula Discharge Data Data Completed and Pending: Completed Studies During Hospitalization Category Date Time Status CT abdomen pelvis w con* [id number] Urge nt Cat Scan 09/10/21 16:[address] lumbar spine w o con* [id number] Urgen t Cat Scan 09/10/21 12:23 Completed XR chest 1V kala ble [id number] Urgent Exams 09/10/21 12:23 Completed Labs from last 24 hours 09/12/21 09/12/21 09/11/21 05:47 05:47 22:15 WBC 6.9 RBC 3.03 L Hgb 8.0 L Hct 26.7 L MCV 88.1 MCH 26.4 L MCHC 30.0 RDW 17.7 H Plt Count 238 MPV 9.4 Neut % (Auto) 64.4 Lymph % (Auto) 10.7 [place] % (Auto) 15.8 Eos % (Auto) 6.9 Baso % (Auto) 1.0 Neut # (Auto) 4.42 Lymph # (Auto) 0.7 L [place] # (Auto) 1.1 H Eos # (Auto) 0.5 Baso # (Auto) 0.1 Nucleated RBC % (a uto) 2.2 Nucleated RBCs # 0.2 Sodium 144 Potassium 3.2 L Chloride 102 Carbon Dioxide 32 H Anion Gap 13.2 BUN 10 Creatinine 0.8 GFR Calculation Not Reportable Glucose 81 Calculated Osmolal ity 296 H Calcium 8.7 Coronavirus 229E ( PCR) Not detected SARS-CoV-2 (PCR) Not detected Crossmatch 09/11/21 09/10/21 17:25 13:06 WBC RBC Hgb 8.4 L Hct 28.1 L MCV MCH MCHC RDW Plt Count MPV Neut % (Auto) Lymph % (Auto) [place] % (Auto) Eos % (Auto) Baso % (Auto) Neut # (Auto) Lymph # (Auto) [place] # (Auto) Eos # (Auto) Baso # (Auto) Nucleated RBC % (a uto) Nucleated RBCs # Sodium Potassium Chloride Carbon Dioxide Anion Gap BUN Creatinine GFR Calculation Glucose Calculated Osmolal ity Calcium Coronavirus 229E ( PCR) SARS-CoV-2 (PCR) Crossmatch See Detail Vitals: Last Vital Signs Temp 98.2 F 09/12/21 11:44 Pulse 61 01/11/22 11:44 Resp 16 09/12/21 11:44 BP 138/76 09/12/21 11:44 Pulse Ox 96 09/12/21 11:44 Discharge Plan Discharge Patient Disposition: Home Condition: Stable Prescriptions: New Iron (ferrous sulfate) 325 mg (65 mg iron) tablet 325 mg PO DAILY Qty: 90 RF: 3 Miralax 17 gram/dose powder 8.5 g PO DAILY PRN (Reason: constipation) Qty: 119 RF: 0 Vitamin C 500 mg capsule, extended release 500 mg PO DAILY Qty: 90 RF: 3 Venofer 200 mg iron/10 mL solution 200 mg IV .c4veasq Qty: 50 RF: 0 Continued nitroglycerin 0.4 mg tablet, sublingual 0.4 mg sublingual Q5M PRN (Reason: Chest Pain) RF: 0 (DME) Power step arch support See Rx Instructions .Route .MEDSUPPLY Qty: 2 RF: 0 Trelegy Ellipta 100-62.5-25 mcg blister with device 1 inh inhalation DAILY 30 Days Qty: 60 RF: 6 metoprolol tartrate 25 mg tablet 12.5 mg PO BID RF: 0 gabapentin 300 mg capsule See Rx Instructions .ROUTE .COMPLEX RF: 0 rosuvastatin [Crestor] 10 mg tablet 10 mg PO DAILY RF: 0 donepezil 10 mg tablet 10 mg PO DAILY RF: 0 potassium chloride [Klor-Con M20] 20 mEq tablet,ER particles/crystals 20 meq PO DAILY RF: 0 citalopram 20 mg tablet 20 mg PO DAILY RF: 0 ferrous sulfate 324 mg (65 mg iron) tablet,delayed release (DR/EC) 324 mg PO DAILY RF: 0 mecobalamin (vitamin B12) 1,000 mcg tablet,chewable 1,000 mcg PO DAILY RF: 0 magnesium oxide 500 mg capsule 500 mg PO DAILY RF: 0 fluticasone propionate [Flonase Allergy Relief] 50 mcg/actuation spray,suspension 1 spray INTRANASAL BID RF: 0 albuterol sulfate 2.5 mg /3 mL (0.083 %) solution for nebulization 2.5 mg INHALATION BID PRN (Reason: Shortness Of Breath Or Wheezing) RF: 0 anastrozole 1 mg Tablet 1 mg PO DAILY RF: 0 tramadol 50 mg Tablet 50 mg PO TID PRN (Reason: Pain) RF: 0 bumetanide 1 mg Tablet 1 mg PO DAILY RF: 0 dicyclomine 20 mg tablet 20 mg PO BID PRN (Reason: stomach cramps) RF: 0 pantoprazole 40 mg tablet,delayed release (DR/EC) 40 mg PO BID 30 Days Qty: 60 RF: 0 Held aspirin [Adult Aspirin Regimen] 81 mg tablet,delayed release (DR/EC) 81 mg PO DAILY RF: 0 Hold Instructions: Resume on 09/17/21. Eliquis 5 mg Tablet 5 mg PO BID RF: 0 Hold Instructions: Resume on 09/17/21. Discharge Orders: Discharge Order (Routine); Ordered 09/12/21 Ordered By: Chelsey Simpson Other Ambulatory Orders: Complete Blood Count w/Auto (Routine) Timeframe: 1 Week Location: Determined by Patient Ordered By: Chelsey Simpson Referrals: Zhang Gamboa MD [Primary Care Provider] - 09/25/21 11:00 am Arabella Chua MD [Staff Physician] - 1 week (SENT [facility] FOR DR CHUA, OFFICE WILL CALL WITH APPOINTMENT) Discharge Diet: As Directed Discharge Activity: Increase activity as tolerated Patient Instructions: Anemia, Polyethylene Glycol 3350 (By mouth), Iron Sucrose (By injection), Iron Deficiency Anemia (GEN), Opioid Safety Discharge Attestations Time Spent in Discharge Care*: less than 30 min Quality Metrics Clinical Quality Measures During this hospital stay, did patient experience: None Coding Level of Care Code Acute Chg FW DC note Diagnoses Acute on chronic anemia D64.9 Iron deficiency anemia D50.9 Pulmonary emboli I27.82 Acute cor pulmonale presence: without acute cor pulmonale Chronicity: chronic Pulmonary embolism type: unspecified Presence of IVC filter Z95.828
--- NOTE | 2021-09-12 14:06 | PC.NURSE ---
discharge instructions discussed with pt and her daughter at bedside, both verbalized understanding. IV removed tip intact, pt tolerated well. pt was taken by wc to private vehicle on 3L NC and transfered to personal oxygen tank in vehicle.
[2021-09-12 14:08] VITALS: BP 138/76; PULSE 61; RESP 16; TEMP 36.8; O2SAT 96
== END 2021-09-12 12:30 | disposition home or self-care (01) ==
LOC: ER 18:02 → MEDSURG 19:27
PROVIDERS: Admitting Provider Internal Medicine; Emergency Provider Emergency Medicine; PCP Family Medicine; Visit Provider Internal Medicine
DX: D50.9 Iron deficiency anemia, unspecified (principal); I27.82 Chronic pulmonary embolism; I82.409 Acute embolism and thrombosis of unspecified deep veins of unspecified lower extremity; Z95.828 Presence of other vascular implants and grafts; Z66 Do not resuscitate; Z85.3 Personal history of malignant neoplasm of breast; I11.0 Hypertensive heart disease with heart failure; I50.9 Heart failure, unspecified; J44.9 Chronic obstructive pulmonary disease, unspecified; K21.9 Gastro-esophageal reflux disease without esophagitis; E78.5 Hyperlipidemia, unspecified; G47.33 Obstructive sleep apnea (adult) (pediatric); Z87.891 Personal history of nicotine dependence
CPT/HCPCS: 36415; 36430; 71045; 72131; 74177; 80048; 80053; 82607; 82728; 82746; 83540; 83550; 83615; 83880; 84484; 85014; 85018; 85025; 85045; 86140; 86850; 86880; 86900; 86920; 87426; 87635; 93005; 96360; 96361; 99284; C9113; G0378; J1756; J7030; J8999; P9016; P9040; P9058; Q9967

== ENCOUNTER 2021-09-15 08:22 | Outpatient (CLI) | payer MEDICARE, SELFPAY ==
[2021-09-15 08:46] LABS: Basophils # 0.1 10^3/uL (0.0-0.1); Basophils % 1.3 %; Eosinophils # 0.4 10^3/uL (0.0-0.8); Eosinophils % 6.2 %; Hematocrit 31.6 % (37.0-47.0); Hemoglobin 8.9 g/dL (11.5-15.3); Lymphocytes # 0.7 10^3/uL (0.8-4.8); Mean Corpuscular HGB Conc 28.2 g/dL (30.0-36.0); Mean Corpuscular Hemoglobin 25.9 pg (28.0-34.0); Mean Corpuscular Volume 92.1 fl (81-99); Mean Platelet Volume 8.7 fL (7.4-10.4); Monocytes # 0.8 10^3/uL (0.2-0.9); Monocytes % 12.5 %; Neutrophils # 4.06 10^3/uL (1.8-7.7); Neutrophils % 67.7 %; Nucleated Red Blood Cells % 0 %; Platelet Count 257 10^3/cmm (130-400); Red Blood Count 3.43 10^6/uL (4.1-5.3); Red Cell Distribution Width 19.9 % (12.1-15.1)
[2021-09-15 09:07] LABS: Alanine Aminotransferase 8 U/L (0-33); Albumin Level 3.4 g/dL (3.5-5.2); Alkaline Phosphatase 72 IU/L (35-105); Anion Gap 14.6 (5-19); Aspartate Amino Transferase 17 U/L (0-32); Blood Urea Nitrogen 15 mg/dL (8-23); Calcium 8.1 mg/dL (8.5-10.5); Carbon Dioxide 33 mmol/L (22-29); Chloride 100 mmol/L (98-107); Ferritin 118 ng/mL (15-150); Glucose 90 mg/dL (65-115); Iron 322 ug/dL (37-145); Osmolality Calculated 298 mOsm/kg (285-295); Potassium 3.6 mmol/L (3.5-5.1); Sodium 144 mmol/L (136-145); Total Bilirubin 0.7 mg/dL (0.15-1.2); Total Iron Binding Capacity 370 mcg/dl; Total Protein 5.4 g/dL (6.6-8.7); Unsaturated Iron Binding 48 ug/dL (112-347)
[2021-09-15 09:22] LABS: Vitamin B12 1109 pg/mL (232-1245)
--- NOTE | 2021-09-15 12:16 | ONC FU_ITS ---
Dr. Collins follow up note Patient: Maddison Jenkins Unit #: [id number]: [id number] Dicatated By: Arabella Collins M.D.Date of Visit:Sep 15, 2021 Onc Med Follow-up/Prog Note History of Present Illness: Mrs. Jenkins is a 76-year-old female with a history of abnormal mammogram. She underwent ultrasound guided biopsy of right breast on 02/10/2019 which showed infiltrating ductal carcinoma. On 02/26/2019 she underwent excisional biopsy of right breast lesion and final pathology report showed 1 x 0.8 cm infiltrating ductal carcinoma with positive lymphovascular space invasion with clear margins. One sentinel lymph node was examined which showed no evidence of metastatic disease. Her prognostic profiling showed strongly positive ER/CO, and HER-2/raf negative by FISH. And Ki-67 was 5% e.g. favorable Oncotype DX score was 12 e.g. low distant recurrence-treatment benefit with aromatase inhibitor is about 3% and absolute chemotherapy benefits is less than 1%. recomeended that she start on Arimidex 1 mg by mouth daily for 5 years. She began Arimidex on 03/03/2019 along with vitamin D/calcium supplements. s/p right breast lumpectomy with sentinel lymph node, s/p postlumpectomy radiation therapy She was diagnosed with acute multilobular pulmonary emboli and left lower extremity DVT after presenting to [facility] due to a syncopal episode and chest discomfort. She was noted to have an elevated D-dimer in the emergency room and VQ scan was indeterminate. Initially a CTA was not performed due to acute kidney injury on presentation and covered empirically with Lovenox due to possible concern for PE. CT was performed after renal function improved after her lisinopril and Lasix were held and she received gentle rehydration. CT of the chest showed multiple pulmonary emboli included nonocclusive saddle embolus. Her oxygenation remained stable but she did require 2 L of oxygen at rest. She was treated with Lovenox and subsequently transitioned to Eliquis while in the hospital. She also noted some swelling and tenderness of the left calf and evaluation by duplex noted superficial thrombophlebitis in the greater saphenous vein as well as area of complex fluid collection, hematoma but abscess could not be excluded. During that hospitalization, the hospitalist did reach out to [facility] for consideration of thrombolysis given that she had multilobular PEs. However after discussing her case and careful consideration the consensus was that currently risk of bleeding would outweigh risk of benefit from the thrombolysis and therefore the procedure was recommended against at that time. She was admitted to the hospital on June 24, 2020 with feeling weak and tired and light-colored stools. She was diagnosed with GI bleeding due to Eliquis (which was started on 06/06/2020 with recent diagnosis of multilobular pulmonary embolism and left leg DVT). She was hypotensive so she was given dose of epinephrine and her hemoglobin was down to 7.2 g. She was given 2 units of packed RBC and Eliquis was put on hold. Dr. Jameson was consulted for IVC filter placement and after evaluating risk versus benefit with anticoagulation in a patient with active GI bleeding-an IVC filter was placed. Dr. Santana has been consulted and an EGD and colonoscopy is under consideration. Mrs Jenkins reports she has seen Dr. Echavarria, who is considering follow-up CT scan of chest to assess pulmonary embolism status.Which was done on August 09, 2020 showed interval resolution of bilateral pulmonary emboli described on June 04, 2020 improved right heart strain. Moderate emphysema slightly improved indeterminate mediastinal and hilar lymph nodes., So anticoagulation was discontinued by pulmonology Mammogram done on October 31, 2020 showed there is a new nodule in the anterior lateral left breast measuring 6.8 mm, subsequently patient underwent spot compression view which showed no abnormality She is now on home oxygen-continuious. The Armidex was placed on hold when she was diagnosed with a DVT and pulmonary embolism because of risk of thromboembolism associated with Arimidex. She remains off any blood thinners.And Arimidex was restarted on November 09, 2020 Came for follow-up, as per patient she was admitted to hospital with shortness of breath, having seizure-like activity and found to be severely anemic, she was given 2 units of packed RBC and [facility] [place] [place] [facility] and there was no room available so she was transferred to [facility] where she was evaluated by gastroenterology and underwent EGD and colonoscopy which shows no obvious source of bleeding but multiple benign polyps in the colon, as per patient she was told her colonoscopy was not completed because of some sort of narrowing and repeat colonoscopy is under consideration. As per patient she was again admitted to hospital on September 10, 2021 with progressive anemia and received 3 units of packed RBCs and also given iron infusion, which she tolerated well. As per patient she is on Eliquis for history of DVT/pulm embolism, she is on aspirin for cardiac reason. And also taking her Arimidex along with vitamin D and calcium. Patient denies any melena or hematochezia but dark-colored stool due to oral iron supplement, denies any hemoptysis or hematemesis, denies any jaundice, denies any abdominal pain, denies any hematuria or dysuria or vaginal bleeding. Denies any chest pain or palpitation, she is on home oxygen.As per patient , she was recently discharged from the hospital and was advised to see us for management of her anemia Medications: Anastrozole 1 Tablet (of 1 mg) Oral daily, Aspirin 1 Tablet (of 81 mg) Oral daily, B-12 1 Tablet (of 1000 mcg) Oral daily, Budesonide-Formoterol Fumarate 1 puff(s) (of 160-4.5 mcg/act) Aerosol Inhalation b.i.d., CeleXA 1 Tablet (of 20 mg) Oral daily, Dicyclomine HCl 1 Tablet (of 20 mg) Oral four times a day, Donepezil HCl 1 Tablet (of 10 mg) Oral daily, Ferrous Sulfate 1 Tablet (of 325 (65 fe) mg) Oral daily, Furosemide 1 Tablet (of 40 mg) Oral daily, Gabapentin 1 Tablet (of 800 mg) Capsule Oral b.i.d., HYDROcodone-Acetaminophen 1 - 2 Tablet (of 5-325 mg) Oral q 4 hours PRN, Ipratropium [place] 1 puff(s) (of 0.02 %) Solution Inhalation four times a day PRN, Lisinopril 0.5 Tablet (of 20 mg) Oral daily, Magnesium 1 Tablet (of 400 mg) Oral daily, Pantoprazole Sodium 1 Tablet (of 40 mg) Tablet, enteric coated Oral daily, Potassium Chloride ER 1 Tablet (of 20 meq) Tablet, controlled release Oral daily, Rosuvastatin Calcium 1 Tablet (of 10 mg) Oral daily, tiZANidine HCl 1 Capsule (of 4 mg) Oral four times a day PRN, traMADol HCl 1 Tablet (of 50 mg) Oral t.i.d. PRN, Trelegy Ellipta Aerosol Powder, Breath Activated Inhalation Allergies: No Known Allergies. Review of Systems: Review of Systems is not available for this patient. Vital Signs: Performed on Sep 15, 2021 09:55 Height - 63.50 in Weight - 164.8 lbs (LOW) BSA - 1.79 sq.m BMI - 28.74 Temperature - 97.3 F (LOW) Pulse - 56 /min (LOW) Respiration - 18 /min BP - 148/64 mm(hg) (HIGH) O2 Sat - 97 % Pain - 0 Fatigue - 10 Performance Status: 1 - No physically strenuous activity, but ambulatory and able to carry out light or sedentary work (e.g. office work, light house work). (ECOG) Physical Examination: Respiratory - Poor air entry otherwise clear, Cardiovascular - Regular rate and rhythm of heart, Gastrointestinal - Soft, bowel sounds present, Extremities - Trace edema. Lab/Imaging: Most recent lab results are not available for this patient. Impression: Infiltrating ductal carcinoma of right breast status post excisional biopsy with sentinel lymph node done on 02/26/2019 next Final pathology report showed 1 x 0.8 cm mass, clear surgical margins T1b, 0/1 sentinel lymph node showed metastatic disease N0 pStage 1A ER 95%, CO 94%, HER-2/raf negative by FISH, Ki-67 5% e.g. favorable Oncotype DX score, is 12, e.g. low risk, distance recurrence of metastases with aromatase inhibitor at 9 years is about 3% and absolute chemotherapy benefit is less than 1% , so started on Arimidex 1 mg by mouth daily for 5 years on 03/03/2019 along with vitamin D/calcium supplement, On hold due to episode of left leg DVT/pulmonary embolism s/p postlumpectomy radiation therapy to the right breast patient is scheduled to see Dr. Santana for EGD and colonoscopy regarding recent episode of GI bleeding while on anticoagulation for left leg DVT and pulmonary embolism, causing drop in her hemoglobin to 7.2 g requiring blood transfusion. Subsequently Eliquis was discontinued and inferior vena cava filter was placed in on June 27, 2020. And her Arimidex was also put on hold after diagnosis with left leg DVT and pulmonary embolism.Follow-up CT chest done in August 2020 showed resolution of pulmonary embolism, at that time pulmonology discontinued anticoagulation, As per patient, Anticoagulation was restarted again since her last visit in October 2020 As far as the breast cancer is concerned, patient has low risk, early stage breast cancer, considering risk versus benefits, will continue to hold Arimidex until her GI bleeding issue is resolved and if patient can tolerate low-dose anticoagulation then we may consider hormone therapy for breast cancer. Anemia diagnosed in August 2021, status post 5 units of packed RBC on 2 separate admissions, status post EGD and colonoscopy, status post iron infusion, now on oral iron Plan: Discussed with patient regarding her labs white blood count 6 hemoglobin 8.9 g hematocrit 31.6, MCV 92.1 platelets 257,000 CMP within normal limits, iron studies shows iron saturation 87% ferritin 118, iron 322, TIBC 370, B12 1109 Clinically, patient is doing reasonably well, her follow-up labs shows hemoglobin continue to improve CBC done on September 12, 2021 showed hemoglobin 8 g hematocrit 26.7 and today her hemoglobin is 8.9 g, hematocrit 31.6. Patient is tolerating oral iron well. She is status post 5 units of packed RBC since 2020 and also received iron infusion on September 13, 2021. Etiology of her severe anemia, could be chronic bleeding from small bowel probably due to AVM or other pathology as her EGD/colonoscopy done recently showed no obvious source of gross bleeding. At this point, we will refer her to gastroenterology in [facility] for capsule endoscopy to evaluate small bowel for possible source of bleeding. In the meantime we will monitor her closely, she will return to clinic in 1 week with CBC and iron studies, patient will continue to take oral iron, patient was advised in case she becomes symptomatic or if there is any evidence of gross bleeding per rectum or hematemesis, she need to call us or go to hospital for evaluation. Patient is on Eliquis and aspirin, which may increase risk for bleeding. As per patient she also has inferior vena cava filter. As far as breast cancer is concerned, she is on Arimidex 1 mg p.o. daily, will continue Return to clinic in 1 week with CBC and iron studies Signed By: Arabella Collins M.D. <<Signature on File>>
== END 2021-09-15 08:23 | disposition home or self-care (01) ==
LOC: ONCMED 08:27
PROVIDERS: PCP Family Medicine; Visit Provider Internal Medicine Hematology & Oncology
DX: C50.911 Malignant neoplasm of unspecified site of right female breast (principal); Z79.811 Long term (current) use of aromatase inhibitors; I82.402 Acute embolism and thrombosis of unspecified deep veins of left lower extremity; Z79.01 Long term (current) use of anticoagulants; K92.2 Gastrointestinal hemorrhage, unspecified
CPT/HCPCS: 36415; 80053; 82607; 82728; 83540; 83550; 85025; 99215

== ENCOUNTER 2021-09-22 06:46 | Outpatient (CLI) | payer MEDICARE, SELFPAY ==
[2021-09-22 08:32] LABS: Basophils # 0.1 10^3/uL (0.0-0.1); Eosinophils # 0.2 10^3/uL (0.0-0.8); Eosinophils % 5.9 %; Hematocrit 33.5 % (37.0-47.0); Hemoglobin 9.3 g/dL (11.5-15.3); Lymphocytes # 0.6 10^3/uL (0.8-4.8); Lymphocytes % 14.8 %; Mean Corpuscular HGB Conc 27.8 g/dL (30.0-36.0); Mean Corpuscular Hemoglobin 26.2 pg (28.0-34.0); Mean Corpuscular Volume 94.4 fl (81-99); Mean Platelet Volume 9.2 fL (7.4-10.4); Monocytes # 0.7 10^3/uL (0.2-0.9); Monocytes % 16.5 %; Neutrophils # 2.46 10^3/uL (1.8-7.7); Neutrophils % 60.6 %; Nucleated Red Blood Cells % 0 %; Platelet Count 276 10^3/cmm (130-400); Red Blood Count 3.55 10^6/uL (4.1-5.3); Red Cell Distribution Width 18.5 % (12.1-15.1); White Blood Count 4.1 10^3/uL (4.0-10.0)
[2021-09-22 08:59] LABS: Ferritin 82 ng/mL (15-150); Iron 300 ug/dL (37-145); Percent Saturation 86.9 % (20-50); Total Iron Binding Capacity 345 mcg/dl; Unsaturated Iron Binding 45 ug/dL (112-347)
== END 2021-09-22 06:47 | disposition home or self-care (01) ==
PROVIDERS: PCP Family Medicine; Visit Provider Nurse Practitioner Family
DX: C50.811 Malignant neoplasm of overlapping sites of right female breast (principal); Z17.0 Estrogen receptor positive status [ER+]; E55.9 Vitamin D deficiency, unspecified; I82.402 Acute embolism and thrombosis of unspecified deep veins of left lower extremity; I26.99 Other pulmonary embolism without acute cor pulmonale; Z90.11 Acquired absence of right breast and nipple; Z79.818 Long term (current) use of other agents affecting estrogen receptors and estrogen levels; Z79.01 Long term (current) use of anticoagulants; Z79.82 Long term (current) use of aspirin
CPT/HCPCS: 36415; 82728; 83540; 83550; 85025; 99214

== ENCOUNTER 2021-09-29 06:25 | Outpatient (CLI) | payer MEDICARE, SELFPAY ==
[2021-09-29 09:11] LABS: Basophils # 0.1 10^3/uL (0.0-0.1); Basophils % 1.5 %; Eosinophils # 0.2 10^3/uL (0.0-0.8); Eosinophils % 3.8 %; Hematocrit 28.1 % (37.0-47.0); Lymphocytes # 0.8 10^3/uL (0.8-4.8); Lymphocytes % 17.9 %; Mean Corpuscular HGB Conc 28.5 g/dL (30.0-36.0); Mean Corpuscular Hemoglobin 27.2 pg (28.0-34.0); Mean Corpuscular Volume 95.6 fl (81-99); Mean Platelet Volume 8.8 fL (7.4-10.4); Monocytes # 0.7 10^3/uL (0.2-0.9); Neutrophils # 2.94 10^3/uL (1.8-7.7); Neutrophils % 62.6 %; Nucleated Red Blood Cells % 0 %; Platelet Count 300 10^3/cmm (130-400); Red Blood Count 2.94 10^6/uL (4.1-5.3); Red Cell Distribution Width 19.2 % (12.1-15.1); White Blood Count 4.7 10^3/uL (4.0-10.0)
[2021-09-29 09:38] LABS: Ferritin 112 ng/mL (15-150); Iron 322 ug/dL (37-145); Percent Saturation 88.9 % (20-50); Total Iron Binding Capacity 362 mcg/dl; Unsaturated Iron Binding 40 ug/dL (112-347)
[2021-09-29 10:09] LABS: Reticulocyte % 5.5 % (0.5-2.0)
[2021-09-29 10:24] LABS: Lactate Dehydrogenase 203 U/L (135-214)
== END 2021-09-29 06:26 | disposition home or self-care (01) ==
LOC: ONCMED 06:31
PROVIDERS: PCP Family Medicine; Visit Provider Nurse Practitioner Family
DX: C50.811 Malignant neoplasm of overlapping sites of right female breast (principal); Z17.0 Estrogen receptor positive status [ER+]; Z79.811 Long term (current) use of aromatase inhibitors; E55.9 Vitamin D deficiency, unspecified; I82.402 Acute embolism and thrombosis of unspecified deep veins of left lower extremity; I26.99 Other pulmonary embolism without acute cor pulmonale; D50.9 Iron deficiency anemia, unspecified; Z79.899 Other long term (current) drug therapy; Z79.01 Long term (current) use of anticoagulants
CPT/HCPCS: 36415; 82274; 82728; 83010; 83540; 83550; 83615; 85025; 85045; 87506

== ENCOUNTER 2021-10-01 06:00 | Outpatient (CLI) | payer MEDICARE, SELFPAY | END 2021-10-01 23:59 | disposition home or self-care (01) | LOC: ONCMED 10-03 10:54 | PROVIDERS: PCP Family Medicine; Visit Provider Nurse Practitioner Family | DX: C50.411 Malignant neoplasm of upper-outer quadrant of right female breast (principal); Z17.0 Estrogen receptor positive status [ER+]; R19.7 Diarrhea, unspecified; Z79.899 Other long term (current) drug therapy | CPT/HCPCS: 82274; 87506 ==

== ENCOUNTER 2021-10-03 07:21 | Outpatient (CLI) | payer MEDICARE, SELFPAY ==
[2021-10-03] VITALS (11 sets, daily range): BP systolic 118–136; BP diastolic 39–52; PULSE 56–66; RESP 18; TEMP 36.1–36.9; O2SAT 97–100
[2021-10-03 11:54] LABS: Basophils # 0.1 10^3/uL (0.0-0.1); Basophils % 1.1 %; Eosinophils # 0.1 10^3/uL (0.0-0.8); Hematocrit 23.1 % (37.0-47.0); Hemoglobin 6.6 g/dL (11.5-15.3); Lymphocytes # 0.8 10^3/uL (0.8-4.8); Lymphocytes % 18.6 %; Mean Corpuscular HGB Conc 28.6 g/dL (30.0-36.0); Mean Corpuscular Hemoglobin 27.8 pg (28.0-34.0); Mean Corpuscular Volume 97.5 fl (81-99); Mean Platelet Volume 9.1 fL (7.4-10.4); Monocytes # 0.7 10^3/uL (0.2-0.9); Monocytes % 15.5 %; Neutrophils # 2.71 10^3/uL (1.8-7.7); Neutrophils % 61.6 %; Nucleated Red Blood Cells % 0.5 %; Platelet Count 259 10^3/cmm (130-400); Red Blood Count 2.37 10^6/uL (4.1-5.3); Red Cell Distribution Width 19.2 % (12.1-15.1); White Blood Count 4.4 10^3/uL (4.0-10.0)
[2021-10-03 12:19] LABS: Ferritin 28 ng/mL (15-150); Iron 167 ug/dL (37-145); Percent Saturation 46.9 % (20-50); Total Iron Binding Capacity 356 mcg/dl; Unsaturated Iron Binding 189 ug/dL (112-347)
[2021-10-03] MEDS: diphenhydrAMINE 25 mg Capsule PO (14:10)
[2021-10-03] MEDS: sodium chloride 0.9% 250 ML 999 ML IV (14:10)
[2021-10-03] MEDS: acetaminophen 325 mg Tablet 650 MG PO (14:10)
[2021-10-03] MEDS: FUROsemide 10 mg/mL SDV 2mL 20 MG IV (16:10)
== END 2021-10-03 07:22 | disposition home or self-care (01) ==
LOC: ONCMED 07:22
PROVIDERS: PCP Family Medicine; Visit Provider Nurse Practitioner Family
DX: C50.811 Malignant neoplasm of overlapping sites of right female breast (principal); Z17.0 Estrogen receptor positive status [ER+]; Z79.818 Long term (current) use of other agents affecting estrogen receptors and estrogen levels; E55.9 Vitamin D deficiency, unspecified; D50.9 Iron deficiency anemia, unspecified; Z79.899 Other long term (current) drug therapy; I82.402 Acute embolism and thrombosis of unspecified deep veins of left lower extremity; I26.99 Other pulmonary embolism without acute cor pulmonale; Z79.01 Long term (current) use of anticoagulants
CPT/HCPCS: 36415; 36430; 82728; 83540; 83550; 85025; 86850; 86900; 86920; 99215; J1940; J7050; P9016

== ENCOUNTER 2021-10-09 11:33 | Outpatient (CLI) | payer MEDICARE, SELFPAY ==
[2021-10-09 12:21] LABS: Basophils # 0.1 10^3/uL (0.0-0.1); Basophils % 1.5 %; Eosinophils # 0.2 10^3/uL (0.0-0.8); Eosinophils % 4.6 %; Hematocrit 32.3 % (37.0-47.0); Hemoglobin 9.4 g/dL (11.5-15.3); Lymphocytes # 0.8 10^3/uL (0.8-4.8); Lymphocytes % 21.3 %; Mean Corpuscular HGB Conc 29.1 g/dL (30.0-36.0); Mean Corpuscular Hemoglobin 28.2 pg (28.0-34.0); Mean Platelet Volume 8.4 fL (7.4-10.4); Monocytes # 0.6 10^3/uL (0.2-0.9); Monocytes % 15.7 %; Neutrophils # 2.23 10^3/uL (1.8-7.7); Neutrophils % 56.6 %; Nucleated Red Blood Cells % 0 %; Platelet Count 188 10^3/cmm (130-400); Red Blood Count 3.33 10^6/uL (4.1-5.3); Red Cell Distribution Width 15.8 % (12.1-15.1); White Blood Count 3.9 10^3/uL (4.0-10.0)
[2021-10-09 12:51] LABS: Iron 273 ug/dL (37-145); Percent Saturation 74.1 % (20-50); Total Iron Binding Capacity 368 mcg/dl; Unsaturated Iron Binding 95 ug/dL (112-347)
--- NOTE | 2021-10-09 16:51 | ONC FU_ITS ---
Dr. Collins follow up note Patient: Maddison Jenkins Unit #: [id number]: 1945 Dicatated By: Arabella Collins M.D.Date of Visit:Oct 09, 2021 Onc Med Follow-up/Prog Note History of Present Illness: Mrs. Jenkins is a 76-year-old female with a history of abnormal mammogram. She underwent ultrasound guided biopsy of right breast on 02/10/2019 which showed infiltrating ductal carcinoma. On 02/26/2019 she underwent excisional biopsy of right breast lesion and final pathology report showed 1 x 0.8 cm infiltrating ductal carcinoma with positive lymphovascular space invasion with clear margins. One sentinel lymph node was examined which showed no evidence of metastatic disease. Her prognostic profiling showed strongly positive ER/WI, and HER-2/raf negative by FISH. And Ki-67 was 5% e.g. favorable Oncotype DX score was 12 e.g. low distant recurrence-treatment benefit with aromatase inhibitor is about 3% and absolute chemotherapy benefits is less than 1%. recomeended that she start on Arimidex 1 mg by mouth daily for 5 years. She began Arimidex on 03/03/2019 along with vitamin D/calcium supplements. s/p right breast lumpectomy with sentinel lymph node, s/p postlumpectomy radiation therapy She was diagnosed with acute multilobular pulmonary emboli and left lower extremity DVT after presenting to [facility] due to a syncopal episode and chest discomfort. She was noted to have an elevated D-dimer in the emergency room and VQ scan was indeterminate. Initially a CTA was not performed due to acute kidney injury on presentation and covered empirically with Lovenox due to possible concern for PE. CT was performed after renal function improved after her lisinopril and Lasix were held and she received gentle rehydration. CT of the chest showed multiple pulmonary emboli included nonocclusive saddle embolus. Her oxygenation remained stable but she did require 2 L of oxygen at rest. She was treated with Lovenox and subsequently transitioned to Eliquis while in the hospital. She also noted some swelling and tenderness of the left calf and evaluation by duplex noted superficial thrombophlebitis in the greater saphenous vein as well as area of complex fluid collection, hematoma but abscess could not be excluded. During that hospitalization, the hospitalist did reach out to [facility] for consideration of thrombolysis given that she had multilobular PEs. However after discussing her case and careful consideration the consensus was that currently risk of bleeding would outweigh risk of benefit from the thrombolysis and therefore the procedure was recommended against at that time. She was admitted to the hospital on June 24, 2020 with feeling weak and tired and light-colored stools. She was diagnosed with GI bleeding due to Eliquis (which was started on 06/06/2020 with recent diagnosis of multilobular pulmonary embolism and left leg DVT). She was hypotensive so she was given dose of epinephrine and her hemoglobin was down to 7.2 g. She was given 2 units of packed RBC and Eliquis was put on hold. Dr. Jameson was consulted for IVC filter placement and after evaluating risk versus benefit with anticoagulation in a patient with active GI bleeding-an IVC filter was placed. Dr. Santana has been consulted and an EGD and colonoscopy is under consideration. Mrs Jenkins reports she has seen Dr. Echavarria, who is considering follow-up CT scan of chest to assess pulmonary embolism status.Which was done on August 09, 2020 showed interval resolution of bilateral pulmonary emboli described on June 04, 2020 improved right heart strain. Moderate emphysema slightly improved indeterminate mediastinal and hilar lymph nodes., So anticoagulation was discontinued by pulmonology Mammogram done on October 31, 2020 showed there is a new nodule in the anterior lateral left breast measuring 6.8 mm, subsequently patient underwent spot compression view which showed no abnormality She is now on home oxygen-continuious. The Armidex was placed on hold when she was diagnosed with a DVT and pulmonary embolism because of risk of thromboembolism associated with Arimidex. She remains off any blood thinners.And Arimidex was restarted on November 09, 2020 she was admitted to hospital with shortness of breath, having seizure-like activity and found to be severely anemic, she was given 2 units of packed RBC and [facility] and there was no room available so she was transferred to [place] where she was evaluated by gastroenterology and underwent EGD and colonoscopy which shows no obvious source of bleeding but multiple benign polyps in the colon, as per patient she was told her colonoscopy was not completed because of some sort of narrowing and repeat colonoscopy is under consideration. As per patient she was again admitted to hospital on September 10, 2021 with progressive anemia and received 3 units of packed RBCs and also given iron infusion, which she tolerated well. As per patient she is on Eliquis for history of DVT/pulm embolism, she is on aspirin for cardiac reason. And also taking her Arimidex along with vitamin D and calcium. Came for follow-up, denies any specific complaint, tolerated 2 units of packed RBC given on October 03, 2021 for severe anemia, since then feeling much better, as per patient, she is scheduled to see her immunohematologist in [facility] on October 10, 2021, her stool was checked for occult bleeding and came back positive. She is on oral iron. Denies any fresh blood in her stool denies any hemoptysis or hematemesis denies any jaundice denies any abdominal pain, tolerating oral iron well and along with Arimidex for her history of breast cancer. Medications: Anastrozole 1 Tablet (of 1 mg) Oral daily, Aspirin 1 Tablet (of 81 mg) Oral daily, B-12 1 Tablet (of 1000 mcg) Oral daily, Budesonide-Formoterol Fumarate 1 puff(s) (of 160-4.5 mcg/act) Aerosol Inhalation b.i.d., CeleXA 1 Tablet (of 20 mg) Oral daily, Dicyclomine HCl 1 Tablet (of 20 mg) Oral four times a day, Donepezil HCl 1 Tablet (of 10 mg) Oral daily, Ferrous Sulfate 1 Tablet (of 325 (65 fe) mg) Oral daily, Furosemide 1 Tablet (of 40 mg) Oral daily, Gabapentin 1 Tablet (of 800 mg) Capsule Oral b.i.d., HYDROcodone-Acetaminophen 1 - 2 Tablet (of 5-325 mg) Oral q 4 hours PRN, Ipratropium Vendor 1 puff(s) (of 0.02 %) Solution Inhalation four times a day PRN, Lisinopril 0.5 Tablet (of 20 mg) Oral daily, Magnesium 1 Tablet (of 400 mg) Oral daily, Pantoprazole Sodium 1 Tablet (of 40 mg) Tablet, enteric coated Oral daily, Potassium Chloride ER 1 Tablet (of 20 meq) Tablet, controlled release Oral daily, Rosuvastatin Calcium 1 Tablet (of 10 mg) Oral daily, tiZANidine HCl 1 Capsule (of 4 mg) Oral four times a day PRN, traMADol HCl 1 Tablet (of 50 mg) Oral t.i.d. PRN, Trelegy Ellipta Aerosol Powder, Breath Activated Inhalation Allergies: No Known Allergies. Review of Systems: Review of Systems is not available for this patient. Vital Signs: Performed on Oct 09, 2021 15:52 Height - 63.50 in Weight - 166.0 lbs (LOW) BSA - 1.80 sq.m BMI - 28.94 Temperature - 96.9 F (LOW) Pulse - 61 /min Respiration - 18 /min BP - 130/74 mm(hg) O2 Sat - 95 % (LOW) Pain - 0 Fatigue - 7 Performance Status: 1 - No physically strenuous activity, but ambulatory and able to carry out light or sedentary work (e.g. office work, light house work). (ECOG) Physical Examination: Respiratory - Poor air entry, Cardiovascular - Irregular rhythm and rate, Gastrointestinal - Soft, bowel sounds present, Extremities - No visible edema. Lab/Imaging: Test performed on Oct 03, 2021 11:32 Ferritin 28 ng/mL Iron 167 mcg/dL Iron Binding Capacity (TIBC) 356 mcg/dl % Iron Saturation 46.9 % UIBC 189 mcg/dL WBC 4.4 10 3/uL RBC 2.37 10 6/uL HGB 6.6 g/dL HCT 23.1 % MCV 97.5 fl MCH 27.8 pg MCHC 28.6 g/dL RDW 19.2 % Platelet Count 259 10 3/cmm MPV 9.1 fL Neutrophils 2.71 10 3/uL Lymphocytes 0.8 10 3/uL Monocytes 0.7 10 3/uL Eosinophils 0.1 10 3/uL Basophils 0.1 10 3/uL Neutrophil % 61.6 % Lymphocyte % 18.6 % Monocyte % 15.5 % Eosinophil % 3.0 % Basophils % 1.1 % NRBC % 0.5 % Impression: Infiltrating ductal carcinoma of right breast status post excisional biopsy with sentinel lymph node done on 02/26/2019 next Final pathology report showed 1 x 0.8 cm mass, clear surgical margins T1b, 0/1 sentinel lymph node showed metastatic disease N0 pStage 1A ER 95%, WI 94%, HER-2/raf negative by FISH, Ki-67 5% e.g. favorable Oncotype DX score, is 12, e.g. low risk, distance recurrence of metastases with aromatase inhibitor at 9 years is about 3% and absolute chemotherapy benefit is less than 1% , so started on Arimidex 1 mg by mouth daily for 5 years on 03/03/2019 along with vitamin D/calcium supplement, On hold due to episode of left leg DVT/pulmonary embolism s/p postlumpectomy radiation therapy to the right breast patient is scheduled to see Dr. Santana for EGD and colonoscopy regarding recent episode of GI bleeding while on anticoagulation for left leg DVT and pulmonary embolism, causing drop in her hemoglobin to 7.2 g requiring blood transfusion. Subsequently Eliquis was discontinued and inferior vena cava filter was placed in on June 27, 2020. And her Arimidex was also put on hold after diagnosis with left leg DVT and pulmonary embolism.Follow-up CT chest done in August 2020 showed resolution of pulmonary embolism, at that time pulmonology discontinued anticoagulation, As per patient, Anticoagulation was restarted again since her last visit in October 2020 As far as the breast cancer is concerned, patient has low risk, early stage breast cancer, considering risk versus benefits, will continue to hold Arimidex until her GI bleeding issue is resolved and if patient can tolerate low-dose anticoagulation then we may consider hormone therapy for breast cancer. Anemia diagnosed in August 2021, status post 5 units of packed RBC on 2 separate admissions, status post EGD and colonoscopy, status post iron infusion, now on oral iron, Given 2 more units of packed RBCs on October 03, 2021 for hemoglobin around 6.6 g Plan: Discussed with patient regarding her labs white blood count 3.9 hemoglobin 9.4 g compared to 6.6 g prior to 2 units of packed RBC done on October 03, 2021, hematocrit 32.3 platelets 188,000 with ANC 2230 and iron studies shows iron saturation 74.1% iron 273, ferritin is pending TIBC 368 Clinically, patient is doing reasonably well, tolerated 2 units of packed RBC, given on October 03, 2021, her follow-up labs shows improvement in her hemoglobin, now 9.4 g compared to 6.6 g previously, prior to blood transfusion. As per patient, she is scheduled to see her immunohematologist in the morning but her stool for occult blood, checked and came back positive, now GI evaluation is under consideration. Patient is on oral iron, tolerating well, her follow-up lab work-up shows adequate iron stores She will return to clinic in 2 weeks with CBC and iron studies, if there is a drop in her iron stores, may consider parenteral iron on the other hand if her hemoglobin drops below 8 g, will consider blood transfusion, in the meantime, patient will undergo GI evaluation to rule out chronic GI blood loss especially while on anticoagulation/aspirin. Signed By: Arabella Collins M.D. <<Signature on File>>
== END 2021-10-09 11:34 | disposition home or self-care (01) ==
PROVIDERS: PCP Family Medicine; Visit Provider Internal Medicine Hematology & Oncology
DX: D64.9 Anemia, unspecified (principal); C50.912 Malignant neoplasm of unspecified site of left female breast; C77.9 Secondary and unspecified malignant neoplasm of lymph node, unspecified; Z17.0 Estrogen receptor positive status [ER+]; Z79.811 Long term (current) use of aromatase inhibitors; Z79.899 Other long term (current) drug therapy
CPT/HCPCS: 36415; 83540; 83550; 85025; 99214

== ENCOUNTER 2021-10-24 13:22 | Outpatient (CLI) | payer MEDICARE, SELFPAY ==
[2021-10-24 14:50] LABS: Basophils % 0.8 %; Eosinophils # 0.2 10^3/uL (0.0-0.8); Hemoglobin 6.7 g/dL (11.5-15.3); Lymphocytes # 0.8 10^3/uL (0.8-4.8); Lymphocytes % 15.7 %; Mean Corpuscular HGB Conc 27.9 g/dL (30.0-36.0); Mean Corpuscular Hemoglobin 26.9 pg (28.0-34.0); Mean Corpuscular Volume 96.4 fl (81-99); Mean Platelet Volume 8.7 fL (7.4-10.4); Monocytes # 0.8 10^3/uL (0.2-0.9); Monocytes % 15.9 %; Neutrophils # 3.17 10^3/uL (1.8-7.7); Neutrophils % 64.4 %; Nucleated Red Blood Cells % 0 %; Platelet Count 308 10^3/cmm (130-400); Red Blood Count 2.49 10^6/uL (4.1-5.3); Red Cell Distribution Width 14.8 % (12.1-15.1); White Blood Count 4.9 10^3/uL (4.0-10.0)
[2021-10-24 15:17] LABS: Ferritin 27 ng/mL (15-150); Iron 65 ug/dL (37-145); Percent Saturation 18.2 % (20-50); Total Iron Binding Capacity 356 mcg/dl; Unsaturated Iron Binding 291 ug/dL (112-347)
== END 2021-10-24 13:23 | disposition home or self-care (01) ==
LOC: ONCMED 13:25
PROVIDERS: Internal Medicine Hematology & Oncology; PCP Family Medicine; Visit Provider Nurse Practitioner Family
DX: D50.9 Iron deficiency anemia, unspecified (principal)
CPT/HCPCS: 36415; 82728; 83540; 83550; 85025

== ENCOUNTER 2021-11-02 07:48 | Outpatient (CLI) | payer MEDICARE, SELFPAY ==
[2021-11-02 08:30] LABS: Basophils # 0.1 10^3/uL (0.0-0.1); Basophils % 1.4 %; Eosinophils # 0.3 10^3/uL (0.0-0.8); Eosinophils % 7.6 %; Hematocrit 25.8 % (37.0-47.0); Hemoglobin 7.1 g/dL (11.5-15.3); Lymphocytes # 0.8 10^3/uL (0.8-4.8); Lymphocytes % 21.2 %; Mean Corpuscular HGB Conc 27.5 g/dL (30.0-36.0); Mean Corpuscular Hemoglobin 24.5 pg (28.0-34.0); Mean Platelet Volume 8.5 fL (7.4-10.4); Monocytes # 0.7 10^3/uL (0.2-0.9); Monocytes % 17.7 %; Neutrophils # 1.91 10^3/uL (1.8-7.7); Neutrophils % 51.8 %; Nucleated Red Blood Cells % 0 %; Platelet Count 319 10^3/cmm (130-400); Red Cell Distribution Width 18.7 % (12.1-15.1); White Blood Count 3.7 10^3/uL (4.0-10.0)
--- NOTE | 2021-11-04 11:17 | ONC FU_ITS ---
Janae Paredes Progress Note Patient: Maddison Jenkins Unit #: [id number]: 1945 Dicatated By: Janae Paredes N.P.Date of Visit:Nov 02, 2021 Onc MED Follow-up/Prog Note Chief Complaint: Right breast cancer History of Present Illness: Mrs. Jenkins is a 76-year-old female with a history of abnormal mammogram. She underwent ultrasound guided biopsy of right breast on 02/10/2019 which showed infiltrating ductal carcinoma. On 02/26/2019 she underwent excisional biopsy of right breast lesion and final pathology report showed 1 x 0.8 cm infiltrating ductal carcinoma with positive lymphovascular space invasion with clear margins. One sentinel lymph node was examined which showed no evidence of metastatic disease. Her prognostic profiling showed strongly positive ER/WA, and HER-2/raf negative by FISH. And Ki-67 was 5% e.g. favorable Oncotype DX score was 12 e.g. low distant recurrence-treatment benefit with aromatase inhibitor is about 3% and absolute chemotherapy benefits is less than 1%. recomeended that she start on Arimidex 1 mg by mouth daily for 5 years. She began Arimidex on 03/03/2019 along with vitamin D/calcium supplements. s/p right breast lumpectomy with sentinel lymph node, s/p postlumpectomy radiation therapy She was diagnosed with acute multilobular pulmonary emboli and left lower extremity DVT after presenting to [facility] due to a syncopal episode and chest discomfort. She was noted to have an elevated D-dimer in the emergency room and VQ scan was indeterminate. Initially a CTA was not performed due to acute kidney injury on presentation and covered empirically with Lovenox due to possible concern for PE. CT was performed after renal function improved after her lisinopril and Lasix were held and she received gentle rehydration. CT of the chest showed multiple pulmonary emboli included nonocclusive saddle embolus. Her oxygenation remained stable but she did require 2 L of oxygen at rest. She was treated with Lovenox and subsequently transitioned to Eliquis while in the hospital. She also noted some swelling and tenderness of the left calf and evaluation by duplex noted superficial thrombophlebitis in the greater saphenous vein as well as area of complex fluid collection, hematoma but abscess could not be excluded. During that hospitalization, the hospitalist did reach out to [facility] for consideration of thrombolysis given that she had multilobular PEs. However after discussing her case and careful consideration the consensus was that currently risk of bleeding would outweigh risk of benefit from the thrombolysis and therefore the procedure was recommended against at that time. She was admitted to the hospital on June 24, 2020 with feeling weak and tired and light-colored stools. She was diagnosed with GI bleeding due to Eliquis (which was started on 06/06/2020 with recent diagnosis of multilobular pulmonary embolism and left leg DVT). She was hypotensive so she was given dose of epinephrine and her hemoglobin was down to 7.2 g. She was given 2 units of packed RBC and Eliquis was put on hold. Dr. Jameson was consulted for IVC filter placement and after evaluating risk versus benefit with anticoagulation in a patient with active GI bleeding-an IVC filter was placed. Dr. Santana has been consulted and an EGD and colonoscopy is under consideration. Mrs Jenkins reports she has seen Dr. Echavarria, who is considering follow-up CT scan of chest to assess pulmonary embolism status.Which was done on August 09, 2020 showed interval resolution of bilateral pulmonary emboli described on June 04, 2020 improved right heart strain. Moderate emphysema slightly improved indeterminate mediastinal and hilar lymph nodes., So anticoagulation was discontinued by pulmonology Mammogram done on October 31, 2020 showed there is a new nodule in the anterior lateral left breast measuring 6.8 mm, subsequently patient underwent spot compression view which showed no abnormality She is now on home oxygen-continuious. The Armidex was placed on hold when she was diagnosed with a DVT and pulmonary embolism because of risk of thromboembolism associated with Arimidex. She remains off any blood thinners.And Arimidex was restarted on November 09, 2020 she was admitted to hospital with shortness of breath, having seizure-like activity and found to be severely anemic, she was given 2 units of packed RBC and [facility] and there was no room available so she was transferred to [place] where she was evaluated by gastroenterology and underwent EGD and colonoscopy which shows no obvious source of bleeding but multiple benign polyps in the colon, as per patient she was told her colonoscopy was not completed because of some sort of narrowing and repeat colonoscopy is under consideration. As per patient she was again admitted to hospital on September 10, 2021 with progressive anemia and received 3 units of packed RBCs and also given iron infusion, which she tolerated well. As per patient she is on Eliquis for history of DVT/pulm embolism, she is on aspirin for cardiac reason. And also taking her Arimidex along with vitamin D and calcium. Came for follow-up. Tolerated 2 units of packed RBC given on October 03, 2021 for severe anemia. She continues to have fatigue but states that it is better. She was evaluated by gastroenterology in [place]. I have 5 areas and small bowel that were cauterized. She states there was an area that he could not reach so they will repeat upper endoscopy. She uses home oxygen for shortness of breath. She denies cough or chest pain. No GI problems. She is not noted blood in her stool. Her stools are loose at times but that is also improving. She denies headache or dizziness. She does state that she is having tenderness of her right breast and is able to palpate a nodule that is new to her. Review Of Symptoms: See above. Past Medical History: Anxiety Arthropathy Bradycardia Chronic obstructive pulmonary disease Coronary artery disease Depression Gastroesophageal reflux disease History of colon polyps Hyperlipidemia Hypertension Iron deficiency Irritable bowel syndrome Memory loss Multiple sclerosis Myalgia Obstructive sleep apnea Osteoarthritis Osteoporosis Peripheral neuropathy Pulmonary edema Renal failure Covid vaccine 2 nd in 2020 Past Surgical History: Back surgery x4 Cholecystectomy Hysterectomy/bilateral salpingectomy-oophorectomy Left knee replacement in 2008 Colonoscopy in 2004 Allergies: No Known Allergies. Medications: Anastrozole 1 Tablet (of 1 mg) Oral daily Aspirin 1 Tablet (of 81 mg) Oral daily B-12 1 Tablet (of 1000 mcg) Oral daily Budesonide-Formoterol Fumarate 1 puff(s) (of 160-4.5 mcg/act) Aerosol Inhalation b.i.d. CeleXA 1 Tablet (of 20 mg) Oral daily Dicyclomine HCl 1 Tablet (of 20 mg) Oral four times a day Donepezil HCl 1 Tablet (of 10 mg) Oral daily Ferrous Sulfate 1 Tablet (of 325 (65 fe) mg) Oral daily Furosemide 1 Tablet (of 40 mg) Oral daily Gabapentin 1 Tablet (of 800 mg) Capsule Oral b.i.d. HYDROcodone-Acetaminophen 1 - 2 Tablet (of 5-325 mg) Oral q 4 hours PRN Ipratropium Phillips 1 puff(s) (of 0.02 %) Solution Inhalation four times a day PRN Lisinopril 0.5 Tablet (of 20 mg) Oral daily Magnesium 1 Tablet (of 400 mg) Oral daily Pantoprazole Sodium 1 Tablet (of 40 mg) Tablet, enteric coated Oral daily Potassium Chloride ER 1 Tablet (of 20 meq) Tablet, controlled release Oral daily Rosuvastatin Calcium 1 Tablet (of 10 mg) Oral daily tiZANidine HCl 1 Capsule (of 4 mg) Oral four times a day PRN traMADol HCl 1 Tablet (of 50 mg) Oral t.i.d. PRN Trelegy Ellipta Aerosol Powder, Breath Activated Inhalation Family History: Ms. Jenkins's mother at age 65: congestive heart failure. Ms. Jenkins's father at age 70: congestive heart failure. Ms. Jenkins has 1 brother who is : congestive heart failure. She has 2 sisters: 2 . Ms. Jenkins's first sister's breast cancer, and cervical cancer. Another sister's breast cancer, and cervical cancer. Social History: Ms. Jenkins is and she is a disabled. Ms. Jenkins quit smoking 17 years ago but had smoked 1.0 pack/day for 47 years. She has no history of drinking. Ms. Jenkins reports the following support systems: lives with spouse, significant other, family, or friends, lives in own house, supportive family/friends willing to assist with needs, and adequate transportation available for expected visits. Her diet consists of regular meals. She indicates her activity level as: occasional exercise. Physical Examination: Performed on Nov 02, 2021 08:22: Height - 63.50 in, Weight - 167.4 lbs (HIGH), BSA - 1.80 sq.m, BMI - 29.19, Temperature - 97.4 F (LOW), Pulse - 76 /min, Respiration - 18 /min, BP - 110/48 mm(hg), O2 Sat - 92 % (LOW), Pain - 0, and Fatigue - 5. Performance Status: 1 - No physically strenuous activity, but ambulatory and able to carry out light or sedentary work (e.g. office work, light house work). (ECOG) Constitutional Alert, cooperative, oriented. Mood and affect appropriate. Appears close to chronological age. Well nourished. Well developed. Head Normocephalic; no scars. Hematologic/Lymphatic No petechiae or purpura. No tender or palpable lymph nodes in the cervical, supraclavicular, axillary or inguinal area. Respiratory Lungs are clear to auscultation without rhonchi or wheezing. Cardiovascular Regular rate and rhythm of heart without murmurs, gallops or rubs. Breasts Tenderness to right upper breast/chest wall with subcentimeter nodule noted at 11:00 o'clock position Abdomen Non-tender, non-distended, no masses, ascites or hepatosplenomegaly. Good bowel sounds. No guarding or rebound tenderness. Extremities 2+ pitting edema bilateral lower extremities. Musculoskeletal No tenderness or swelling, normal range of motion without obvious weakness. Psychiatric Alert and oriented times three. Coherent speech. Verbalizes understanding of our discussions today. Laboratory: Test performed on Nov 02, 2021 08:13 WBC 3.7 10 3/uL RBC 2.90 10 6/uL HGB 7.1 g/dL HCT 25.8 % MCV 89.0 fl MCH 24.5 pg MCHC 27.5 g/dL RDW 18.7 % Platelet Count 319 10 3/cmm MPV 8.5 fL Neutrophils 1.91 10 3/uL Lymphocytes 0.8 10 3/uL Monocytes 0.7 10 3/uL Eosinophils 0.3 10 3/uL Basophils 0.1 10 3/uL Neutrophil % 51.8 % Lymphocyte % 21.2 % Monocyte % 17.7 % Eosinophil % 7.6 % Basophils % 1.4 % NRBC % 0 % Test performed on Oct 03, 2021 11:32 Ferritin 28 ng/mL Iron 167 mcg/dL Iron Binding Capacity (TIBC) 356 mcg/dl % Iron Saturation 46.9 % UIBC 189 mcg/dL Impression: Infiltrating ductal carcinoma of right breast status post excisional biopsy with sentinel lymph node done on 02/26/2019 next Final pathology report showed 1 x 0.8 cm mass, clear surgical margins T1b, 0/1 sentinel lymph node showed metastatic disease N0 pStage 1A ER 95%, WA 94%, HER-2/raf negative by FISH, Ki-67 5% e.g. favorable Oncotype DX score, is 12, e.g. low risk, distance recurrence of metastases with aromatase inhibitor at 9 years is about 3% and absolute chemotherapy benefit is less than 1% , so started on Arimidex 1 mg by mouth daily for 5 years on 03/03/2019 along with vitamin D/calcium supplement, On hold due to episode of left leg DVT/pulmonary embolism s/p postlumpectomy radiation therapy to the right breast patient is scheduled to see Dr. Santana for EGD and colonoscopy regarding recent episode of GI bleeding while on anticoagulation for left leg DVT and pulmonary embolism, causing drop in her hemoglobin to 7.2 g requiring blood transfusion. Subsequently Eliquis was discontinued and inferior vena cava filter was placed in on June 27, 2020. And her Arimidex was also put on hold after diagnosis with left leg DVT and pulmonary embolism.Follow-up CT chest done in August 2020 showed resolution of pulmonary embolism, at that time pulmonology discontinued anticoagulation, As per patient, Anticoagulation was restarted again since her last visit in October 2020 As far as the breast cancer is concerned, patient has low risk, early stage breast cancer, considering risk versus benefits, will continue to hold Arimidex until her GI bleeding issue is resolved and if patient can tolerate low-dose anticoagulation then we may consider hormone therapy for breast cancer. Anemia diagnosed in August 2021, status post 5 units of packed RBC on 2 separate admissions, status post EGD and colonoscopy, status post iron infusion, now on oral iron, Given 2 more units of packed RBCs on October 03, 2021 for hemoglobin around 6.6 g Plan: Labs were discussed with patient with WBC 3.7, hgb 7.1, hct 25.8. Patient states that she is feeling well. She denies any bleeding. She states that her supervisor carding had cauterized some areas in her small bowel. She is to return to him for follow-up. It was discussed that her hemoglobin is 7.1 and it is recommended that she receive a blood transfusion but she would like to wait and recheck her blood counts in a few days. She is currently taking her iron supplement. Due to her tenderness in her right breast and a small nodule palpated at the 11 o'clock position we will obtain diagnostic mammogram and ultrasound and determine further course of treatment from there. We will recheck her labs next Saturday on 11/07/2021 and if there is not an improvement in her hemoglobin will once again recommend that she receive a blood transfusion. Signed By: Janae Paredes N.Gómez. <<Signature on File>>
== END 2021-11-02 07:49 | disposition home or self-care (01) ==
PROVIDERS: PCP Family Medicine; Visit Provider Nurse Practitioner Family
DX: C50.811 Malignant neoplasm of overlapping sites of right female breast (principal); Z17.0 Estrogen receptor positive status [ER+]; E83.51 Hypocalcemia; I82.402 Acute embolism and thrombosis of unspecified deep veins of left lower extremity; I26.99 Other pulmonary embolism without acute cor pulmonale; D64.9 Anemia, unspecified; Z79.811 Long term (current) use of aromatase inhibitors; Z79.01 Long term (current) use of anticoagulants; Z79.899 Other long term (current) drug therapy
CPT/HCPCS: 36415; 85025; 99214

== ENCOUNTER 2021-11-06 08:02 | Outpatient (CLI) | payer MEDICARE, SELFPAY ==
[2021-11-06] VITALS (10 sets, daily range): BP systolic 126–147; BP diastolic 44–68; PULSE 54–65; RESP 16–18; TEMP 36.2–36.9; O2SAT 98–100
[2021-11-06 08:41] LABS: Basophils # 0.1 10^3/uL (0.0-0.1); Basophils % 1.4 %; Eosinophils # 0.2 10^3/uL (0.0-0.8); Eosinophils % 5.5 %; Hemoglobin 6.9 g/dL (11.5-15.3); Lymphocytes # 0.6 10^3/uL (0.8-4.8); Mean Corpuscular HGB Conc 26.5 g/dL (30.0-36.0); Mean Corpuscular Hemoglobin 23.9 pg (28.0-34.0); Mean Platelet Volume 8.4 fL (7.4-10.4); Monocytes # 0.6 10^3/uL (0.2-0.9); Monocytes % 16.4 %; Neutrophils # 2.17 10^3/uL (1.8-7.7); Neutrophils % 59.4 %; Nucleated Red Blood Cells % 0 %; Platelet Count 264 10^3/cmm (130-400); Red Blood Count 2.89 10^6/uL (4.1-5.3); Red Cell Distribution Width 19.1 % (12.1-15.1); White Blood Count 3.7 10^3/uL (4.0-10.0)
[2021-11-06 09:08] LABS: Alanine Aminotransferase 7 U/L (0-33); Albumin Level 3.8 g/dL (3.5-5.2); Alkaline Phosphatase 70 IU/L (35-105); Anion Gap 10.7 (5-19); Aspartate Amino Transferase 17 U/L (0-32); Blood Urea Nitrogen 20 mg/dL (8-23); Calcium 9.2 mg/dL (8.5-10.5); Carbon Dioxide 34 mmol/L (22-29); Chloride 100 mmol/L (98-107); Globulin 2.3 g/dL (1.3-4.6); Glucose 123 mg/dL (65-115); Osmolality Calculated 296 mOsm/kg (285-295); Potassium 3.7 mmol/L (3.5-5.1); Sodium 141 mmol/L (136-145); Total Bilirubin 0.3 mg/dL (0.15-1.2); Total Protein 6.1 g/dL (6.6-8.7)
[2021-11-06] MEDS: acetaminophen 325 mg Tablet 650 MG PO (12:23)
[2021-11-06] MEDS: diphenhydrAMINE 25 mg Capsule PO (12:24)
[2021-11-06] MEDS: sodium chloride 0.9% 250 ML 999 ML IV (12:25)
[2021-11-06] MEDS: FUROsemide 10 mg/mL SDV 2mL 20 MG IV (14:30)
[2021-11-06 17:03] LABS: D Dimer 0.53 ug/mIFEU (0-0.59)
--- NOTE | 2021-11-08 18:12 | ONC FU_ITS ---
Dr. Collins follow up note Patient: Maddison Jenkins Unit #: [id number]: 1945 Dicatated By: Arabella Collins M.D.Date of Visit:Nov 06, 2021 Onc Med Follow-up/Prog Note History of Present Illness: Mrs. Jenkins is a 76-year-old female with a history of abnormal mammogram. She underwent ultrasound guided biopsy of right breast on 02/10/2019 which showed infiltrating ductal carcinoma. On 02/26/2019 she underwent excisional biopsy of right breast lesion and final pathology report showed 1 x 0.8 cm infiltrating ductal carcinoma with positive lymphovascular space invasion with clear margins. One sentinel lymph node was examined which showed no evidence of metastatic disease. Her prognostic profiling showed strongly positive ER/OH, and HER-2/raf negative by FISH. And Ki-67 was 5% e.g. favorable Oncotype DX score was 12 e.g. low distant recurrence-treatment benefit with aromatase inhibitor is about 3% and absolute chemotherapy benefits is less than 1%. recomeended that she start on Arimidex 1 mg by mouth daily for 5 years. She began Arimidex on 03/03/2019 along with vitamin D/calcium supplements. s/p right breast lumpectomy with sentinel lymph node, s/p postlumpectomy radiation therapy She was diagnosed with acute multilobular pulmonary emboli and left lower extremity DVT after presenting to [facility] due to a syncopal episode and chest discomfort. She was noted to have an elevated D-dimer in the emergency room and VQ scan was indeterminate. Initially a CTA was not performed due to acute kidney injury on presentation and covered empirically with Lovenox due to possible concern for PE. CT was performed after renal function improved after her lisinopril and Lasix were held and she received gentle rehydration. CT of the chest showed multiple pulmonary emboli included nonocclusive saddle embolus. Her oxygenation remained stable but she did require 2 L of oxygen at rest. She was treated with Lovenox and subsequently transitioned to Eliquis while in the hospital. She also noted some swelling and tenderness of the left calf and evaluation by duplex noted superficial thrombophlebitis in the greater saphenous vein as well as area of complex fluid collection, hematoma but abscess could not be excluded. During that hospitalization, the hospitalist did reach out to [facility] for consideration of thrombolysis given that she had multilobular PEs. However after discussing her case and careful consideration the consensus was that currently risk of bleeding would outweigh risk of benefit from the thrombolysis and therefore the procedure was recommended against at that time. She was admitted to the hospital on June 24, 2020 with feeling weak and tired and light-colored stools. She was diagnosed with GI bleeding due to Eliquis (which was started on 06/06/2020 with recent diagnosis of multilobular pulmonary embolism and left leg DVT). She was hypotensive so she was given dose of epinephrine and her hemoglobin was down to 7.2 g. She was given 2 units of packed RBC and Eliquis was put on hold. Dr. Jameson was consulted for IVC filter placement and after evaluating risk versus benefit with anticoagulation in a patient with active GI bleeding-an IVC filter was placed. Dr. Santana has been consulted and an EGD and colonoscopy is under consideration. Mrs Jenkins reports she has seen Dr. Echavarria, who is considering follow-up CT scan of chest to assess pulmonary embolism status.Which was done on August 09, 2020 showed interval resolution of bilateral pulmonary emboli described on June 04, 2020 improved right heart strain. Moderate emphysema slightly improved indeterminate mediastinal and hilar lymph nodes., So anticoagulation was discontinued by pulmonology Mammogram done on October 31, 2020 showed there is a new nodule in the anterior lateral left breast measuring 6.8 mm, subsequently patient underwent spot compression view which showed no abnormality She is now on home oxygen-continuious. The Armidex was placed on hold when she was diagnosed with a DVT and pulmonary embolism because of risk of thromboembolism associated with Arimidex. She remains off any blood thinners.And Arimidex was restarted on November 09, 2020 she was admitted to hospital with shortness of breath, having seizure-like activity and found to be severely anemic, she was given 2 units of packed RBC and [facility] [place] [facility] and there was no room available so she was transferred to [place] where she was evaluated by gastroenterology and underwent EGD and colonoscopy which shows no obvious source of bleeding but multiple benign polyps in the colon, as per patient she was told her colonoscopy was not completed because of some sort of narrowing and repeat colonoscopy is under consideration. As per patient she was again admitted to hospital on September 10, 2021 with progressive anemia and received 3 units of packed RBCs and also given iron infusion, which she tolerated well. As per patient she is on Eliquis for history of DVT/pulm embolism, she is on aspirin for cardiac reason. And also taking her Arimidex along with vitamin D and calcium. Came for follow-up, complaining of generalized weakness and fatigue but no chest pain but dyspnea/palpitation on exertion. Patient is being evaluated by gastroenterology in [place], recently underwent EGD which showed no source of active bleeding but none bleeder ulcer in her stomach, which as per patient were cauterized, now capsule endoscopy and colonoscopy is under consideration patient is on Eliquis 5 mg p.o. daily for history of pulmonary embolism/DVT and also on aspirin Medications: Anastrozole 1 Tablet (of 1 mg) Oral daily, Aspirin 1 Tablet (of 81 mg) Oral daily, B-12 1 Tablet (of 1000 mcg) Oral daily, Budesonide-Formoterol Fumarate 1 puff(s) (of 160-4.5 mcg/act) Aerosol Inhalation b.i.d., CeleXA 1 Tablet (of 20 mg) Oral daily, Dicyclomine HCl 1 Tablet (of 20 mg) Oral four times a day, Donepezil HCl 1 Tablet (of 10 mg) Oral daily, Ferrous Sulfate 1 Tablet (of 325 (65 fe) mg) Oral daily, Furosemide 1 Tablet (of 40 mg) Oral daily, Gabapentin 1 Tablet (of 800 mg) Capsule Oral b.i.d., HYDROcodone-Acetaminophen 1 - 2 Tablet (of 5-325 mg) Oral q 4 hours PRN, Ipratropium [place] 1 puff(s) (of 0.02 %) Solution Inhalation four times a day PRN, Lisinopril 0.5 Tablet (of 20 mg) Oral daily, Magnesium 1 Tablet (of 400 mg) Oral daily, Pantoprazole Sodium 1 Tablet (of 40 mg) Tablet, enteric coated Oral daily, Potassium Chloride ER 1 Tablet (of 20 meq) Tablet, controlled release Oral daily, Rosuvastatin Calcium 1 Tablet (of 10 mg) Oral daily, tiZANidine HCl 1 Capsule (of 4 mg) Oral four times a day PRN, traMADol HCl 1 Tablet (of 50 mg) Oral t.i.d. PRN, Trelegy Ellipta Aerosol Powder, Breath Activated Inhalation Allergies: No Known Allergies. Review of Systems: Review of Systems is not available for this patient. Vital Signs: Performed on Nov 06, 2021 15:26 Height - 63.50 in Temperature - 98.2 F (LOW) Pulse - 62 /min Respiration - 18 /min BP - 133/56 mm(hg) O2 Sat - 99 % Pain - 0 Fatigue - 8 Performance Status: 2 - Ambulatory/capable of all self-care, unable to perform any work activities. Up and about more than 50% of waking hours. (ECOG) Physical Examination: Respiratory - Lungs are clear to auscultation, Cardiovascular - Regular rate and rhythm of heart, Gastrointestinal - Soft, bowel sounds present, Extremities - Trace edema bilaterally. Lab/Imaging: Test performed on Nov 02, 2021 08:13 WBC 3.7 10 3/uL RBC 2.90 10 6/uL HGB 7.1 g/dL HCT 25.8 % MCV 89.0 fl MCH 24.5 pg MCHC 27.5 g/dL RDW 18.7 % Platelet Count 319 10 3/cmm MPV 8.5 fL Neutrophils 1.91 10 3/uL Lymphocytes 0.8 10 3/uL Monocytes 0.7 10 3/uL Eosinophils 0.3 10 3/uL Basophils 0.1 10 3/uL Neutrophil % 51.8 % Lymphocyte % 21.2 % Monocyte % 17.7 % Eosinophil % 7.6 % Basophils % 1.4 % NRBC % 0 % Test performed on Oct 03, 2021 11:32 Ferritin 28 ng/mL Iron 167 mcg/dL Iron Binding Capacity (TIBC) 356 mcg/dl % Iron Saturation 46.9 % UIBC 189 mcg/dL Impression: Infiltrating ductal carcinoma of right breast status post excisional biopsy with sentinel lymph node done on 02/26/2019 next Final pathology report showed 1 x 0.8 cm mass, clear surgical margins T1b, 0/1 sentinel lymph node showed metastatic disease N0 pStage 1A ER 95%, OH 94%, HER-2/raf negative by FISH, Ki-67 5% e.g. favorable Oncotype DX score, is 12, e.g. low risk, distance recurrence of metastases with aromatase inhibitor at 9 years is about 3% and absolute chemotherapy benefit is less than 1% , so started on Arimidex 1 mg by mouth daily for 5 years on 03/03/2019 along with vitamin D/calcium supplement, On hold due to episode of left leg DVT/pulmonary embolism s/p postlumpectomy radiation therapy to the right breast patient is scheduled to see Dr. Santana for EGD and colonoscopy regarding recent episode of GI bleeding while on anticoagulation for left leg DVT and pulmonary embolism, causing drop in her hemoglobin to 7.2 g requiring blood transfusion. Subsequently Eliquis was discontinued and inferior vena cava filter was placed in on June 27, 2020. And her Arimidex was also put on hold after diagnosis with left leg DVT and pulmonary embolism.Follow-up CT chest done in August 2020 showed resolution of pulmonary embolism, at that time pulmonology discontinued anticoagulation, As per patient, Anticoagulation was restarted again since her last visit in October 2020 As far as the breast cancer is concerned, patient has low risk, early stage breast cancer, considering risk versus benefits, will continue to hold Arimidex until her GI bleeding issue is resolved and if patient can tolerate low-dose anticoagulation then we may consider hormone therapy for breast cancer. 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 Mccarthy, spa host in [place] and as per patient capsule endoscopy and colonoscopy is under consideration. Her follow-up CBC shows further drop in her hemoglobin from 7.1 to 6.9 g and patient was symptomatic for which 2 units of packed RBC was ordered which she is seeing today. Patient is on Eliquis for history of pulmonary embolism/DVT, at this point we will reduce Eliquis dose to 2.5 mg and orders pulmonary CTA, venous Doppler study Left lower extremity and D-dimer if normal, may consider discontinue Eliquis to minimize risk of GI bleeding causing symptomatic severe anemia requiring blood transfusion more frequently. Patient also has inferior vena cava filter. As far as history of breast cancer is concerned, patient on Arimidex Return to clinic in 1 week with CBC Signed By: Arabella Collins M.D. <<Signature on File>>
== END 2021-11-06 08:03 | disposition home or self-care (01) ==
PROVIDERS: Nurse Practitioner Family; PCP Family Medicine; Visit Provider Internal Medicine Hematology & Oncology
DX: D50.0 Iron deficiency anemia secondary to blood loss (chronic) (principal); K92.2 Gastrointestinal hemorrhage, unspecified; C50.911 Malignant neoplasm of unspecified site of right female breast; Z17.0 Estrogen receptor positive status [ER+]; Z79.01 Long term (current) use of anticoagulants; Z79.899 Other long term (current) drug therapy; Z99.81 Dependence on supplemental oxygen; Z86.711 Personal history of pulmonary embolism; Z86.718 Personal history of other venous thrombosis and embolism
CPT/HCPCS: 36430; 80053; 85025; 85378; 86850; 86900; 86920; 96374; 99215; J1940; J7050; P9016

== ENCOUNTER 2021-11-09 07:10 | Outpatient (CLI) | payer MEDICARE, SELFPAY ==
--- NOTE | 2021-11-09 07:18 | USCV_ITS ---
Maddison Jenkins Age: 76 Gender: F : 1945 Exam Date: 11/09/2021 07:27 Ordering Phys: Janae Praedes CUSTOM TAILOR Technologist: Exam Location: [facility] [place] Indication: pain and swelling PROCEDURES: Venous duplex imaging was performed in only the left lower extremity. The following venous structures were evaluated: common femoral vein, profunda vein, proximal portion of the greater saphenous vein, superficial femoral vein, and the popliteal vein. FINDINGS: Normal 2-D Doppler and augmentation and compressibility throughout the lower extremity venous structures. Additional imaging through the proximal calf veins also reveals no thrombus. Limited evaluation of the greater saphenous vein is patent with no thrombus.. CONCLUSIONS No evidence of left lower extremity DVT. Esteban Goldsmith MD (Electronically Signed) Final Date: 09 November 2021 09:40 S
== END 2021-11-09 07:11 | disposition home or self-care (01) ==
LOC: RAD 07:13
PROVIDERS: PCP Family Medicine; Visit Provider Nurse Practitioner Family
DX: Z86.718 Personal history of other venous thrombosis and embolism (principal); M79.605 Pain in left leg; M79.89 Other specified soft tissue disorders
CPT/HCPCS: 93971

== ENCOUNTER 2021-11-15 12:33 | Outpatient (CLI) | payer MEDICARE, SELFPAY ==
[2021-11-15 13:39] LABS: Basophils # 0.1 10^3/uL (0.0-0.1); Basophils % 1.2 %; Eosinophils # 0.2 10^3/uL (0.0-0.8); Eosinophils % 3.2 %; Hematocrit 30.6 % (37.0-47.0); Hemoglobin 8.6 g/dL (11.5-15.3); Lymphocytes # 0.8 10^3/uL (0.8-4.8); Lymphocytes % 16.7 %; Mean Corpuscular HGB Conc 28.1 g/dL (30.0-36.0); Mean Corpuscular Hemoglobin 26.3 pg (28.0-34.0); Mean Corpuscular Volume 93.6 fl (81-99); Mean Platelet Volume 9.6 fL (7.4-10.4); Monocytes # 0.8 10^3/uL (0.2-0.9); Monocytes % 16.7 %; Neutrophils # 3.14 10^3/uL (1.8-7.7); Neutrophils % 62.2 %; Nucleated Red Blood Cells % 0 %; Platelet Count 269 10^3/cmm (130-400); Red Blood Count 3.27 10^6/uL (4.1-5.3); Red Cell Distribution Width 18.8 % (12.1-15.1)
--- NOTE | 2021-11-15 17:00 | ONC FU_ITS ---
Dr. Collins follow up note Patient: Maddison Jenkins Unit #: [id number]: 1945 Dicatated By: Arabella Collins M.D.Date of Visit:Nov 15, 2021 Onc Med Follow-up/Prog Note History of Present Illness: Mrs. Jenkins is a 76-year-old female with a history of abnormal mammogram. She underwent ultrasound guided biopsy of right breast on 02/10/2019 which showed infiltrating ductal carcinoma. On 02/26/2019 she underwent excisional biopsy of right breast lesion and final pathology report showed 1 x 0.8 cm infiltrating ductal carcinoma with positive lymphovascular space invasion with clear margins. One sentinel lymph node was examined which showed no evidence of metastatic disease. Her prognostic profiling showed strongly positive ER/MT, and HER-2/raf negative by FISH. And Ki-67 was 5% e.g. favorable Oncotype DX score was 12 e.g. low distant recurrence-treatment benefit with aromatase inhibitor is about 3% and absolute chemotherapy benefits is less than 1%. recomeended that she start on Arimidex 1 mg by mouth daily for 5 years. She began Arimidex on 03/03/2019 along with vitamin D/calcium supplements. s/p right breast lumpectomy with sentinel lymph node, s/p postlumpectomy radiation therapy She was diagnosed with acute multilobular pulmonary emboli and left lower extremity DVT after presenting to [facility] due to a syncopal episode and chest discomfort. She was noted to have an elevated D-dimer in the emergency room and VQ scan was indeterminate. Initially a CTA was not performed due to acute kidney injury on presentation and covered empirically with Lovenox due to possible concern for PE. CT was performed after renal function improved after her lisinopril and Lasix were held and she received gentle rehydration. CT of the chest showed multiple pulmonary emboli included nonocclusive saddle embolus. Her oxygenation remained stable but she did require 2 L of oxygen at rest. She was treated with Lovenox and subsequently transitioned to Eliquis while in the hospital. She also noted some swelling and tenderness of the left calf and evaluation by duplex noted superficial thrombophlebitis in the greater saphenous vein as well as area of complex fluid collection, hematoma but abscess could not be excluded. During that hospitalization, the hospitalist did reach out to [facility] for consideration of thrombolysis given that she had multilobular PEs. However after discussing her case and careful consideration the consensus was that currently risk of bleeding would outweigh risk of benefit from the thrombolysis and therefore the procedure was recommended against at that time. She was admitted to the hospital on June 24, 2020 with feeling weak and tired and light-colored stools. She was diagnosed with GI bleeding due to Eliquis (which was started on 06/06/2020 with recent diagnosis of multilobular pulmonary embolism and left leg DVT). She was hypotensive so she was given dose of epinephrine and her hemoglobin was down to 7.2 g. She was given 2 units of packed RBC and Eliquis was put on hold. Dr. Jameson was consulted for IVC filter placement and after evaluating risk versus benefit with anticoagulation in a patient with active GI bleeding-an IVC filter was placed. Dr. Santana has been consulted and an EGD and colonoscopy is under consideration. Mrs Jenkins reports she has seen Dr. Echavarria, who is considering follow-up CT scan of chest to assess pulmonary embolism status.Which was done on August 09, 2020 showed interval resolution of bilateral pulmonary emboli described on June 04, 2020 improved right heart strain. Moderate emphysema slightly improved indeterminate mediastinal and hilar lymph nodes., So anticoagulation was discontinued by pulmonology Mammogram done on October 31, 2020 showed there is a new nodule in the anterior lateral left breast measuring 6.8 mm, subsequently patient underwent spot compression view which showed no abnormality She is now on home oxygen-continuious. The Armidex was placed on hold when she was diagnosed with a DVT and pulmonary embolism because of risk of thromboembolism associated with Arimidex. She remains off any blood thinners.And Arimidex was restarted on November 09, 2020 she was admitted to hospital with shortness of breath, having seizure-like activity and found to be severely anemic, she was given 2 units of packed RBC and [facility] and there was no room available so she was transferred to [place] where she was evaluated by gastroenterology and underwent EGD and colonoscopy which shows no obvious source of bleeding but multiple benign polyps in the colon, as per patient she was told her colonoscopy was not completed because of some sort of narrowing and repeat colonoscopy is under consideration. As per patient she was again admitted to hospital on September 10, 2021 with progressive anemia and received 3 units of packed RBCs and also given iron infusion, which she tolerated well. As per patient she is on Eliquis for history of DVT/pulm embolism, she is on aspirin for cardiac reason. And also taking her Arimidex along with vitamin D and calcium. Came for follow-up, denies any specific complaint except generalized weakness and fatigue but feeling much better since blood transfusion given on November 06, 2021. Denies any melena or hematochezia denies any hemoptysis or hematemesis, denies any jaundice. Patient has history of small bowel AVM related bleeding status post cauterization, she is being followed by Dr. Mccarthy, audio video repairer in [facility]. She is also on Eliquis for history of left leg DVT and pulmonary embolism, during her last visit lower extremity venous Doppler study was ordered also CTA of pulmonary to assess left lower extremity DVT and pulmonary embolism status as if needed may consider discontinue Eliquis to minimize GI blood loss. Medications: Anastrozole 1 Tablet (of 1 mg) Oral daily, Aspirin 1 Tablet (of 81 mg) Oral daily, B-12 1 Tablet (of 1000 mcg) Oral daily, Budesonide-Formoterol Fumarate 1 puff(s) (of 160-4.5 mcg/act) Aerosol Inhalation b.i.d., CeleXA 1 Tablet (of 20 mg) Oral daily, Dicyclomine HCl 1 Tablet (of 20 mg) Oral four times a day, Donepezil HCl 1 Tablet (of 10 mg) Oral daily, Ferrous Sulfate 1 Tablet (of 325 (65 fe) mg) Oral daily, Furosemide 1 Tablet (of 40 mg) Oral daily, Gabapentin 1 Tablet (of 800 mg) Capsule Oral b.i.d., HYDROcodone-Acetaminophen 1 - 2 Tablet (of 5-325 mg) Oral q 4 hours PRN, Ipratropium [place] 1 puff(s) (of 0.02 %) Solution Inhalation four times a day PRN, Lisinopril 0.5 Tablet (of 20 mg) Oral daily, Magnesium 1 Tablet (of 400 mg) Oral daily, Pantoprazole Sodium 1 Tablet (of 40 mg) Tablet, enteric coated Oral daily, Potassium Chloride ER 1 Tablet (of 20 meq) Tablet, controlled release Oral daily, Rosuvastatin Calcium 1 Tablet (of 10 mg) Oral daily, tiZANidine HCl 1 Capsule (of 4 mg) Oral four times a day PRN, traMADol HCl 1 Tablet (of 50 mg) Oral t.i.d. PRN, Trelegy Ellipta Aerosol Powder, Breath Activated Inhalation Allergies: No Known Allergies. Review of Systems: Review of Systems is not available for this patient. Vital Signs: Performed on Nov 15, 2021 14:00 Height - 63.50 in Weight - 168.6 lbs (HIGH) BSA - 1.81 sq.m BMI - 29.40 Temperature - 98.0 F (LOW) Pulse - 81 /min Respiration - 18 /min BP - 127/69 mm(hg) O2 Sat - 93 % (LOW) Pain - 0 Fatigue - 8 Performance Status: 1 - No physically strenuous activity, but ambulatory and able to carry out light or sedentary work (e.g. office work, light house work). (ECOG) Physical Examination: Respiratory - Lungs are clear to auscultation, Cardiovascular - Regular rate and rhythm of heart, Gastrointestinal - Soft, bowel sounds present, Extremities - Trace edema bilaterally. 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 Mccarthy in [place] History of left lower extremity DVT/pulmonary embolism/status post IVC filter Infiltrating ductal carcinoma of right breast status post excisional biopsy with sentinel lymph node done on 02/26/2019 next Final pathology report showed 1 x 0.8 cm mass, clear surgical margins T1b, 0/1 sentinel lymph node showed metastatic disease N0 pStage 1A ER 95%, [place] 94%, HER-2/raf negative by FISH, Ki-67 5% e.g. favorable Oncotype DX score, is 12, e.g. low risk, distance recurrence of metastases with aromatase inhibitor at 9 years is about 3% and absolute chemotherapy benefit is less than 1% , so started on Arimidex 1 mg by mouth daily for 5 years on 03/03/2019 along with vitamin D/calcium supplement, On hold due to episode of left leg DVT/pulmonary embolism s/p postlumpectomy radiation therapy to the right breast patient is scheduled to see Dr. Santana for EGD and colonoscopy regarding recent episode of GI bleeding while on anticoagulation for left leg DVT and pulmonary embolism, causing drop in her hemoglobin to 7.2 g requiring blood transfusion. Subsequently Eliquis was discontinued and inferior vena cava filter was placed in on June 27, 2020. And her Arimidex was also put on hold after diagnosis with left leg DVT and pulmonary embolism. Follow-up CTA chest done in August 2020 showed resolution of pulmonary embolism, at that time pulmonology, discontinued anticoagulation, As per patient, AnticoagulationWith Eliquis was restarted again since her last visit in October 2020 Anemia diagnosed in August 2021, status post 5 units of packed RBC on 2 separate admissions, status post EGD and colonoscopy, status post iron infusion, now on oral iron, Given 2 more units of packed RBCs on October 03, 2021 for hemoglobin around 6.6 g Plan: Discussed with patient regarding her labs white blood count 5 hemoglobin 8.6 hematocrit 30.6 platelets 269,000 Clinically, patient is doing reasonably well, feeling better since recent blood transfusion, GI work-up is in progress as patient has history of small bowel AVMs and in the past underwent cauterization Today's CBC shows improvement in her hemoglobin after blood transfusion but her anemia work-up including iron studies done on October 24, 2021 shows persistent iron deficiency, will consider Injectafer 750 mg IV weekly x2. Patient is under going GI work-up in effort to control chronic GI blood loss from small bowel AVMs, if cauterization did not help, may consider discontinue Eliquis as her left lower extremity venous Doppler???showed no evidence of thrombosis and CTA chest is pending,. And if CTA chest is also, may consider discontinue Eliquis as risk versus benefit overweighs risk because of chronic blood loss requiring repeated blood transfusion moreover patient has inferior vena cava filter which may prevent life-threatening pulmonary embolism. Patient will return to clinic 1 week after second dose of Injectafer with CBC and iron studies As far as breast cancer is concerned,, no signs symptom suggestive of recurrence of disease and she will continue with Arimidex along with vitamin D and calcium. Signed By: Arabella Collins M.D. <<Signature on File>>
== END 2021-11-15 12:34 | disposition home or self-care (01) ==
PROVIDERS: PCP Family Medicine; Visit Provider Internal Medicine Hematology & Oncology
DX: D50.0 Iron deficiency anemia secondary to blood loss (chronic) (principal); K92.2 Gastrointestinal hemorrhage, unspecified; C50.911 Malignant neoplasm of unspecified site of right female breast; Z17.0 Estrogen receptor positive status [ER+]; Z79.01 Long term (current) use of anticoagulants; Z79.899 Other long term (current) drug therapy; Z99.81 Dependence on supplemental oxygen; Z86.711 Personal history of pulmonary embolism; Z86.718 Personal history of other venous thrombosis and embolism
CPT/HCPCS: 36415; 85025; 99214

== ENCOUNTER 2021-11-23 08:09 | Outpatient (CLI) | payer MEDICARE, SELFPAY ==
--- NOTE | 2021-11-23 08:28 | NM_ITS ---
WS: [id number] NUCLEAR MEDICINE VENTILATION/PERFUSION LUNG SCAN HISTORY: HX OF PE/ BREAST CANCER/DETENTION USE OF AROMATASE INHIBITOR COMPARISON: 06/03/2020, chest radiograph 11/24/2019 TECHNIQUE: Ventilation: 30.6 mCi of Technetium 99 DTPA aerosol inhaled. Perfusion: 5.3 mCi of technetium 99m MAA IV. Markedly heterogeneous distribution of the radionuclide throughout the lungs during ventilation. Very similar as to the prior study. There are multiple scattered defects throughout both lungs. There is much better perfusion as compared to the ventilation. There are matched defects bilaterally. The larg est is within the anterior RIGHT lung. There are no unmatched defects. NM/NM pul vent and perfus* [id number] IMPRESSION: Intermediate probability for pulmonary embolism based upon the emphysematous ch anges and numerous matched defects.
--- NOTE | 2021-11-23 08:29 | XR_ITS ---
WS: [id number] Chest 2 views, 11/23/2021 Clinical Data: HISTORY OF PE Comparison: Portable chest, 09/10/2021. Findings: No nodules, masses or effusions are seen. The heart is slightly enlarged. The pulmonary vas cularity is not increased. No pneumonia or pneumothorax is seen. The aortic arch and descending thora cic aorta show minimal calcification and tortuosity. The patient's had an anterior cervical disc fusi on and probably of posterior lumbar fusion. XR/XR chest 2V* [id number] Impression: Cardiomegaly and atherosclerosis.
== END 2021-11-23 08:10 | disposition home or self-care (01) ==
PROVIDERS: PCP Family Medicine; Visit Provider Internal Medicine Hematology & Oncology
DX: Z86.711 Personal history of pulmonary embolism (principal); C50.411 Malignant neoplasm of upper-outer quadrant of right female breast; I51.7 Cardiomegaly; I70.90 Unspecified atherosclerosis
CPT/HCPCS: 71046; 78014; A9540; A9567

== ENCOUNTER 2021-11-28 12:54 | Outpatient (CLI) | payer MEDICARE, SELFPAY ==
--- NOTE | 2021-11-28 13:18 | XR_ITS ---
WS: [id number] DEXA (DUAL ENERGY X-RAY ABSORPTIOMETRY) Bone mineral density was performed using a [employer] machine. HISTORY: POSTMENOPAUSAL COMPARISON: None available. Left forearm BMD: 0.728 g/cm2. T score: -1.7 Z score: 0.7 Total hip BMD: Left: 0.842 g/cm2. T score: -1.3 Z score: 0.3 Right: 0.850 g/cm2. T score: -1.2 Z score: 0.3 10 year probability of a major osteoporotic fracture is 20%. XR/XR DEXA axial skeleton* [id number] IMPRESSION: OSTEOPENIA based upon the WHO classification for females.
== END 2021-11-28 12:55 | disposition home or self-care (01) ==
PROVIDERS: PCP Family Medicine; Visit Provider Nurse Practitioner
DX: Z78.0 Asymptomatic menopausal state (principal); M85.80 Other specified disorders of bone density and structure, unspecified site
CPT/HCPCS: 77080

== ENCOUNTER 2021-11-29 07:48 | Outpatient (CLI) | payer MEDICARE, SELFPAY ==
[2021-11-29] MEDS: diphenhydrAMINE 50 mg/mL SDV 1mL 25 MG IVP (08:40)
[2021-11-29] MEDS: sodium chloride 0.9% 500 ML IV (08:40)
[2021-11-29] MEDS: acetaminophen 325 mg Tablet 650 MG PO (08:44)
[2021-11-29] MEDS: iron dextran 25 MG in SYRINGE 1 EACH 30 MG IVP (09:23)
== END 2021-11-29 07:49 | disposition home or self-care (01) ==
PROVIDERS: PCP Family Medicine; Visit Provider Internal Medicine Hematology & Oncology
DX: D50.9 Iron deficiency anemia, unspecified (principal); M85.80 Other specified disorders of bone density and structure, unspecified site; F41.9 Anxiety disorder, unspecified; J44.9 Chronic obstructive pulmonary disease, unspecified; I25.10 Atherosclerotic heart disease of native coronary artery without angina pectoris; Z79.01 Long term (current) use of anticoagulants; Z79.899 Other long term (current) drug therapy; Z87.891 Personal history of nicotine dependence; Z86.711 Personal history of pulmonary embolism; Z85.3 Personal history of malignant neoplasm of breast
CPT/HCPCS: 96365; 96366; 96375; J1100; J1200; J1750; J7030; J7040

== ENCOUNTER 2021-11-30 09:19 | Outpatient (CLI) | payer MEDICARE, SELFPAY ==
--- NOTE | 2021-11-30 09:38 | MM_ITS ---
WS: [id number] DIAGNOSTIC BILATERAL 3D TOMOSYNTHESIS DIGITAL MAMMOGRAM WITH CAD RIGHT breast ultrasound, limited HISTORY: History of breast cancer. New palpable area RIGHT breast. COMPARISON: 11/10/2020, 10/31/2020 and 02/26/2019 TECHNIQUE: Bilateral craniocaudad, mediolateral oblique, and mediolateral views are submitted. RIGHT MLO. Computer aided detection utilized. Breast composition: Scarring lumpectomy site in the upper outer quadrant of the RIGHT breast with ass ociated dystrophic calcifications. There is mild diffuse thickening of the trabecula and skin thicken ing. Palpable marker is placed at the 11:00 axis. This is just medial to the scar site. No mammograph ic abnormality. No change in the LEFT breast. RIGHT breast ultrasound, limited. Ultrasound is directed in the area the palpable abnormality as by the patient. This is at the 12:00 a xis. There is no abnormality identified by ultrasound. MM/[place] [id number] IMPRESSION: BI-RADS: 2-Benign FOLLOW UP: 1 Year Follow-up
--- NOTE | 2021-11-30 11:49 | US_ITS ---
WS: [id number] DIAGNOSTIC BILATERAL 3D TOMOSYNTHESIS DIGITAL MAMMOGRAM WITH CAD RIGHT breast ultrasound, limited HISTORY: History of breast cancer. New palpable area RIGHT breast. COMPARISON: 11/10/2020, 10/31/2020 and 02/26/2019 TECHNIQUE: Bilateral craniocaudad, mediolateral oblique, and mediolateral views are submitted. RIGHT MLO. Computer aided detection utilized. Breast composition: Scarring lumpectomy site in the upper outer quadrant of the RIGHT breast with ass ociated dystrophic calcifications. There is mild diffuse thickening of the trabecula and skin thicken ing. Palpable marker is placed at the 11:00 axis. This is just medial to the scar site. No mammograph ic abnormality. No change in the LEFT breast. RIGHT breast ultrasound, limited. Ultrasound is directed in the area the palpable abnormality as by the patient. This is at the 12:00 a xis. There is no abnormality identified by ultrasound. US/US breast RT limited* [id number] IMPRESSION: BI-RADS: 2-Benign FOLLOW UP: 1 Year Follow-up
== END 2021-11-30 09:20 | disposition home or self-care (01) ==
PROVIDERS: PCP Family Medicine; Visit Provider Family Medicine
DX: I27.82 Chronic pulmonary embolism (principal); J44.9 Chronic obstructive pulmonary disease, unspecified; J96.11 Chronic respiratory failure with hypoxia; J96.12 Chronic respiratory failure with hypercapnia; G47.33 Obstructive sleep apnea (adult) (pediatric); R07.9 Chest pain, unspecified; K21.9 Gastro-esophageal reflux disease without esophagitis; I10 Essential (primary) hypertension; E78.5 Hyperlipidemia, unspecified; N63.11 Unspecified lump in the right breast, upper outer quadrant; Z85.3 Personal history of malignant neoplasm of breast
CPT/HCPCS: 76642; 77062; 99214

== ENCOUNTER 2021-12-14 09:17 | Outpatient (CLI) | payer MEDICARE, SELFPAY ==
[2021-12-14 10:21] LABS: Basophils # 0.1 10^3/uL (0.0-0.1); Basophils % 0.7 %; Eosinophils # 0.1 10^3/uL (0.0-0.8); Hematocrit 30.1 % (37.0-47.0); Hemoglobin 8.4 g/dL (11.5-15.3); Lymphocytes # 0.7 10^3/uL (0.8-4.8); Lymphocytes % 9.2 %; Mean Corpuscular HGB Conc 27.9 g/dL (30.0-36.0); Mean Corpuscular Hemoglobin 29.7 pg (28.0-34.0); Mean Corpuscular Volume 106.4 fl (81-99); Mean Platelet Volume 9.3 fL (7.4-10.4); Monocytes # 0.9 10^3/uL (0.2-0.9); Neutrophils # 5.35 10^3/uL (1.8-7.7); Neutrophils % 75.8 %; Nucleated Red Blood Cells % 0 %; Platelet Count 204 10^3/cmm (130-400); Red Blood Count 2.83 10^6/uL (4.1-5.3); Red Cell Distribution Width 21.7 % (12.1-15.1); White Blood Count 7.1 10^3/uL (4.0-10.0)
[2021-12-14 10:43] LABS: Ferritin 220 ng/mL (15-150); Iron 36 ug/dL (37-145); Percent Saturation 13.2 % (20-50); Total Iron Binding Capacity 271 mcg/dl; Unsaturated Iron Binding 235 ug/dL (112-347)
--- NOTE | 2021-12-14 12:30 | ONC FU_ITS ---
Janae Paredes Progress Note Patient: Maddison Jenkins Unit #: [id number]: 1945 Dicatated By: Janae Paredes N.P.Date of Visit:Dec 14, 2021 Onc MED Follow-up/Prog Note Chief Complaint: Right breast cancer History of Present Illness: Mrs. Jenkins is a 76-year-old female with a history of abnormal mammogram. She underwent ultrasound guided biopsy of right breast on 02/10/2019 which showed infiltrating ductal carcinoma. On 02/26/2019 she underwent excisional biopsy of right breast lesion and final pathology report showed 1 x 0.8 cm infiltrating ductal carcinoma with positive lymphovascular space invasion with clear margins. One sentinel lymph node was examined which showed no evidence of metastatic disease. Her prognostic profiling showed strongly positive ER/MN, and HER-2/raf negative by FISH. And Ki-67 was 5% e.g. favorable Oncotype DX score was 12 e.g. low distant recurrence-treatment benefit with aromatase inhibitor is about 3% and absolute chemotherapy benefits is less than 1%. recomeended that she start on Arimidex 1 mg by mouth daily for 5 years. She began Arimidex on 03/03/2019 along with vitamin D/calcium supplements. s/p right breast lumpectomy with sentinel lymph node, s/p postlumpectomy radiation therapy She was diagnosed with acute multilobular pulmonary emboli and left lower extremity DVT after presenting to [facility] due to a syncopal episode and chest discomfort. She was noted to have an elevated D-dimer in the emergency room and VQ scan was indeterminate. Initially a CTA was not performed due to acute kidney injury on presentation and covered empirically with Lovenox due to possible concern for PE. CT was performed after renal function improved after her lisinopril and Lasix were held and she received gentle rehydration. CT of the chest showed multiple pulmonary emboli included nonocclusive saddle embolus. Her oxygenation remained stable but she did require 2 L of oxygen at rest. She was treated with Lovenox and subsequently transitioned to Eliquis while in the hospital. She also noted some swelling and tenderness of the left calf and evaluation by duplex noted superficial thrombophlebitis in the greater saphenous vein as well as area of complex fluid collection, hematoma but abscess could not be excluded. During that hospitalization, the hospitalist did reach out to [facility] for consideration of thrombolysis given that she had multilobular PEs. However after discussing her case and careful consideration the consensus was that currently risk of bleeding would outweigh risk of benefit from the thrombolysis and therefore the procedure was recommended against at that time. She was admitted to the hospital on June 24, 2020 with feeling weak and tired and light-colored stools. She was diagnosed with GI bleeding due to Eliquis (which was started on 06/06/2020 with recent diagnosis of multilobular pulmonary embolism and left leg DVT). She was hypotensive so she was given dose of epinephrine and her hemoglobin was down to 7.2 g. She was given 2 units of packed RBC and Eliquis was put on hold. Dr. Jameson was consulted for IVC filter placement and after evaluating risk versus benefit with anticoagulation in a patient with active GI bleeding-an IVC filter was placed. Dr. Santana has been consulted and an EGD and colonoscopy is under consideration. Mrs Jenkins reports she has seen Dr. Echavarria, who is considering follow-up CT scan of chest to assess pulmonary embolism status.Which was done on August 09, 2020 showed interval resolution of bilateral pulmonary emboli described on June 04, 2020 improved right heart strain. Moderate emphysema slightly improved indeterminate mediastinal and hilar lymph nodes., So anticoagulation was discontinued by pulmonology Mammogram done on October 31, 2020 showed there is a new nodule in the anterior lateral left breast measuring 6.8 mm, subsequently patient underwent spot compression view which showed no abnormality She is now on home oxygen-continuious. The Armidex was placed on hold when she was diagnosed with a DVT and pulmonary embolism because of risk of thromboembolism associated with Arimidex. She remains off any blood thinners.And Arimidex was restarted on November 09, 2020 she was admitted to hospital with shortness of breath, having seizure-like activity and found to be severely anemic, she was given 2 units of packed RBC and [facility] and there was no room available so she was transferred to [place] where she was evaluated by gastroenterology and underwent EGD and colonoscopy which shows no obvious source of bleeding but multiple benign polyps in the colon, as per patient she was told her colonoscopy was not completed because of some sort of narrowing and repeat colonoscopy is under consideration. As per patient she was again admitted to hospital on September 10, 2021 with progressive anemia and received 3 units of packed RBCs and also given iron infusion, which she tolerated well. As per patient she is on Eliquis for history of DVT/pulm embolism, she is on aspirin for cardiac reason. And also taking her Arimidex along with vitamin D and calcium. Venous Doppler study done on November 09, 2021 showed no evidence of left lower extremity edema Patient presents today for follow-up. She states she continues to have extreme fatigue. Her appetite. No fever, chills, night sweats. No sinus drainage or sore throat. She has shortness of breath with exertion. She is currently on oxygen at 2 L per nasal cannula she denies cough or chest pain. She has not noted any blood in her urine or stool. No nausea or vomiting. 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 She feels like this is what is contributing to her blood loss. Review Of Symptoms:see above. Past Medical History: Anxiety Arthropathy Bradycardia Chronic obstructive pulmonary disease Coronary artery disease Depression Gastroesophageal reflux disease History of colon polyps Hyperlipidemia Hypertension Iron deficiency Irritable bowel syndrome Memory loss Multiple sclerosis Myalgia Obstructive sleep apnea Osteoarthritis Osteoporosis Peripheral neuropathy Pulmonary edema Renal failure Covid vaccine 2 nd in 2020 Past Surgical History: Back surgery x4 Cholecystectomy Hysterectomy/bilateral salpingectomy-oophorectomy Left knee replacement in 2008 Colonoscopy in 2004 Allergies: No Known Allergies. Medications: Anastrozole 1 Tablet (of 1 mg) Oral daily Aspirin 1 Tablet (of 81 mg) Oral daily B-12 1 Tablet (of 1000 mcg) Oral daily Budesonide-Formoterol Fumarate 1 puff(s) (of 160-4.5 mcg/act) Aerosol Inhalation b.i.d. CeleXA 1 Tablet (of 20 mg) Oral daily Dicyclomine HCl 1 Tablet (of 20 mg) Oral four times a day Donepezil HCl 1 Tablet (of 10 mg) Oral daily Ferrous Sulfate 1 Tablet (of 325 (65 fe) mg) Oral daily Furosemide 1 Tablet (of 40 mg) Oral daily Gabapentin 1 Tablet (of 800 mg) Capsule Oral b.i.d. HYDROcodone-Acetaminophen 1 - 2 Tablet (of 5-325 mg) Oral q 4 hours PRN Ipratropium Dixie 1 puff(s) (of 0.02 %) Solution Inhalation four times a day PRN Lisinopril 0.5 Tablet (of 20 mg) Oral daily Magnesium 1 Tablet (of 400 mg) Oral daily Pantoprazole Sodium 1 Tablet (of 40 mg) Tablet, enteric coated Oral daily Potassium Chloride ER 1 Tablet (of 20 meq) Tablet, controlled release Oral daily Rosuvastatin Calcium 1 Tablet (of 10 mg) Oral daily tiZANidine HCl 1 Capsule (of 4 mg) Oral four times a day PRN traMADol HCl 1 Tablet (of 50 mg) Oral t.i.d. PRN Trelegy Ellipta Aerosol Powder, Breath Activated Inhalation Family History: Ms. Jenkins's mother at age 65: congestive heart failure. Ms. Jenkisn's father at age 70: congestive heart failure. Ms. Jenkins has 1 brother who is : congestive heart failure. She has 2 sisters: 2 . Ms. Jenkins's first sister's breast cancer, and cervical cancer. Another sister's breast cancer, and cervical cancer. Social History: Ms. Jenkins is and she is a disabled. Ms. Jenkins quit smoking 17 years ago but had smoked 1.0 pack/day for 47 years. She has no history of drinking. Ms. Jenkins reports the following support systems: lives with spouse, significant other, family, or friends, lives in own house, supportive family/friends willing to assist with needs, and adequate transportation available for expected visits. Her diet consists of regular meals. She indicates her activity level as: occasional exercise. Physical Examination: Performed on Dec 14, 2021 11:36: Height - 63.50 in, Weight - 166.6 lbs (LOW), BSA - 1.80 sq.m, BMI - 29.05, Temperature - 97.6 F (LOW), Pulse - 66 /min, Respiration - 16 /min, BP - 135/66 mm(hg), O2 Sat - 98 %, Pain - 0, and Fatigue - 8. Performance Status: 2 - Ambulatory/capable of all self-care, unable to perform any work activities. Up and about more than 50% of waking hours. (ECOG) Constitutional Alert, cooperative, oriented. Mood and affect appropriate. Appears close to chronological age. Well nourished. Well developed. Head Normocephalic; no scars. Respiratory Lungs are clear to auscultation without rhonchi or wheezing. On home oxygen per nasal cannula Cardiovascular Regular rate and rhythm of heart without murmurs, gallops or rubs. Abdomen Non-tender, non-distended, no masses, ascites or hepatosplenomegaly. Good bowel sounds. No guarding or rebound tenderness. Musculoskeletal No tenderness or swelling, normal range of motion without obvious weakness. Psychiatric Alert and oriented times three. Coherent speech. Verbalizes understanding of our discussions today. 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 Shari MOFFETT in [place] History of left lower extremity DVT/pulmonary embolism/status post IVC filter Infiltrating ductal carcinoma of right breast status post excisional biopsy with sentinel lymph node done on 02/26/2019 next Final pathology report showed 1 x 0.8 cm mass, clear surgical margins T1b, 0/1 sentinel lymph node showed metastatic disease N0 pStage 1A ER 95%, MN 94%, HER-2/raf negative by FISH, Ki-67 5% e.g. favorable Oncotype DX score, is 12, e.g. low risk, distance recurrence of metastases with aromatase inhibitor at 9 years is about 3% and absolute chemotherapy benefit is less than 1% , so started on Arimidex 1 mg by mouth daily for 5 years on 03/03/2019 along with vitamin D/calcium supplement, On hold due to episode of left leg DVT/pulmonary embolism s/p postlumpectomy radiation therapy to the right breast patient is scheduled to see Dr. Santana for EGD and colonoscopy regarding recent episode of GI bleeding while on anticoagulation for left leg DVT and pulmonary embolism, causing drop in her hemoglobin to 7.2 g requiring blood transfusion. Subsequently Eliquis was discontinued and inferior vena cava filter was placed in on June 27, 2020. And her Arimidex was also put on hold after diagnosis with left leg DVT and pulmonary embolism. Follow-up CTA chest done in August 2020 showed resolution of pulmonary embolism, at that time pulmonology, discontinued anticoagulation, As per patient, AnticoagulationWith Eliquis was restarted again since her last visit in October 2020 Anemia diagnosed in August 2021, status post 5 units of packed RBC on 2 separate admissions, status post EGD and colonoscopy, status post iron infusion, now on oral iron, Given 2 more units of packed RBCs on October 03, 2021 for hemoglobin around 6.6 g Plan: Labs are reviewed with patient. Her WBC is 7.1, hemoglobin 8.4, crit 30.1, and platelet count 204,000. Her iron studies remain low with her iron at 36 and her percent saturation at 13.2. Her ferritin is elevated at 220. Patient received iron dextran on 11/29/2021. Her hemoglobin remains low at 8.4 since the infusion and her iron studies remain low. She has a referral to see a GI specialist in [place] to evaluate the AVM in her small bowel which her previous GI specialist to cauterize the bleeding. She will return in 1 week for CBC and iron studies. She will also be typed and crossed at that time in case blood needs to be transfused. We will have her follow-up in 1 month or sooner if she feels like she needs to. As far as breast cancer is concerned,, no signs symptom suggestive of recurrence of disease and she will continue with Arimidex along with vitamin D and calcium. DEXA scan was performed which indicated osteopenia. Due for her risk of osteoporosis while on Arimidex, we will start at 60 mg IM every 6 months. Signed By: Janae Paredes N.P. <<Signature on File>>
== END 2021-12-14 09:18 | disposition home or self-care (01) ==
PROVIDERS: PCP Family Medicine; Visit Provider Nurse Practitioner Family
DX: D50.9 Iron deficiency anemia, unspecified (principal); M85.80 Other specified disorders of bone density and structure, unspecified site; F41.9 Anxiety disorder, unspecified; J44.9 Chronic obstructive pulmonary disease, unspecified; I25.10 Atherosclerotic heart disease of native coronary artery without angina pectoris; Z79.01 Long term (current) use of anticoagulants; Z79.899 Other long term (current) drug therapy; Z87.891 Personal history of nicotine dependence; Z86.711 Personal history of pulmonary embolism; Z85.3 Personal history of malignant neoplasm of breast
CPT/HCPCS: 36415; 82728; 83540; 83550; 85025; 99215

== ENCOUNTER 2021-12-20 07:57 | Outpatient (CLI) | payer MEDICARE, SELFPAY ==
[2021-12-20] VITALS (7 sets, daily range): BP systolic 110–130; BP diastolic 68–84; PULSE 53–58; RESP 18; TEMP 36.6–36.9; O2SAT 98–100
[2021-12-20 09:05] LABS: Basophils # 0.1 10^3/uL (0.0-0.1); Basophils % 1.1 %; Eosinophils # 0.2 10^3/uL (0.0-0.8); Eosinophils % 2.8 %; Hematocrit 23.1 % (37.0-47.0); Lymphocytes # 0.5 10^3/uL (0.8-4.8); Lymphocytes % 10.1 %; Mean Corpuscular HGB Conc 28.1 g/dL (30.0-36.0); Mean Corpuscular Hemoglobin 29.5 pg (28.0-34.0); Mean Platelet Volume 8.8 fL (7.4-10.4); Monocytes # 0.6 10^3/uL (0.2-0.9); Monocytes % 10.9 %; Neutrophils # 3.99 10^3/uL (1.8-7.7); Neutrophils % 74.7 %; Nucleated Red Blood Cells % 0 %; Platelet Count 269 10^3/cmm (130-400); Red Cell Distribution Width 19.3 % (12.1-15.1); White Blood Count 5.3 10^3/uL (4.0-10.0)
[2021-12-20 09:22] LABS: Hemoglobin 6.5 g/dL (11.5-15.3)
[2021-12-20 09:31] LABS: Ferritin 104 ng/mL (15-150); Iron 107 ug/dL (37-145); Percent Saturation 34.1 % (20-50); Total Iron Binding Capacity 313 mcg/dl; Unsaturated Iron Binding 206 ug/dL (112-347)
[2021-12-20] MEDS: sodium chloride 0.9% 250 ML 999 ML IV (10:35)
[2021-12-20] MEDS: acetaminophen 325 mg Tablet 650 MG PO (10:35)
[2021-12-20] MEDS: diphenhydrAMINE 25 mg Capsule PO (10:35)
[2021-12-20] MEDS: FUROsemide 10 mg/mL SDV 2mL 20 MG IV (12:45)
[2021-12-20] MEDS: denosumab 60 mg SDV SUBCUT (14:20)
== END 2021-12-20 07:58 | disposition home or self-care (01) ==
LOC: ONCMED 07:59
PROVIDERS: PCP Family Medicine; Visit Provider Internal Medicine Hematology & Oncology
DX: D50.9 Iron deficiency anemia, unspecified (principal); M85.80 Other specified disorders of bone density and structure, unspecified site; F41.9 Anxiety disorder, unspecified; J44.9 Chronic obstructive pulmonary disease, unspecified; I25.10 Atherosclerotic heart disease of native coronary artery without angina pectoris; Z79.01 Long term (current) use of anticoagulants; Z79.899 Other long term (current) drug therapy; Z87.891 Personal history of nicotine dependence; Z86.711 Personal history of pulmonary embolism; Z85.3 Personal history of malignant neoplasm of breast
CPT/HCPCS: 36430; 82728; 83540; 83550; 85025; 86850; 86900; 86920; 96372; 96374; 96401; 96402; J0897; J1940; J7050; P9016

== ENCOUNTER 2022-01-01 19:40 | Emergency (ER) | payer MEDICARE, SELFPAY ==
--- NOTE | 2022-01-01 19:44 | USR_ITS ---
PROCEDURE INFORMATION: Exam: US Duplex Left Upper Extremity Veins, Limited Exam date and time: 01/01/2022 8:17 PM Age: 76 years old Clinical indication: Pain; Other: Numbness; Arm, upper and arm, lower; Left; Additional info: Arm pain TECHNIQUE: Imaging protocol: Real-time Duplex ultrasound of the Left Upper Extremity with 2-D valencia scale, color Doppler flow and spectral waveform analysis with image documentation. Limited exam focused on the left upper extremity veins. COMPARISON: CT angio chest PE protcl [id number] 04/07/2021 11:09 AM FINDINGS: Left deep veins: Unremarkable. Axillary and brachial veins are patent throughout without thrombus. Normal Doppler waveforms. Normal compressibility and/or augmentation response. Visualized internal jugular and subclavian veins are patent. Left superficial veins: Unremarkable. Visualized cephalic and basilic veins are patent without thrombus. Soft tissues: Unremarkable. US/[place] [id number] IMPRESSION: No evidence of deep vein thrombosis in the left arm.
[2022-01-01 19:48] VITALS: BP 147/64; PULSE 75; RESP 18; TEMP 36.8; O2SAT 98
--- NOTE | 2022-01-01 22:19 | W.ED.EXTPRO ---
HPI - Extremity Problem General: Chief complaint: Extremity Problem,Nontraumatic Stated complaint: [facility] by [facility]-possible blood clot in LT arm Time Seen by Provider: 01/01/22 22:07 Source: patient Mode of arrival: ambulatory Limitations: no limitations History of Present Illness: 76-year-old female has a history of rheumatoid arthritis states she been having some left elbow pain for last 2 days she had some slight swelling as well states she has pain like this with her arthritis denies any fever states pain is currently 2 out of 10 has full range of motion states she went to urgent care and they were concerned that she might have a blood clot so sent her here for an ultrasound. Denies any injuries denies any fever. Associated symptoms: Deny chest pain, fever(s) or rash Review of Systems Const: Denies: fever(s), chills, body aches or change in appetite Eyes: Denies: blurry vision or eye discomfort ENMT: Denies: throat pain or dental pain Card: Denies: chest pain Resp: Denies: dyspnea GI: Denies: abdominal pain, nausea, vomiting or diarrhea : Denies: dysuria Musc: Reports: extremity pain Skin/Breast: Denies: rash Neuro: Denies: headache(s) Psych: Denies: depression Blayne/Lymph: Denies: easy bruising All/Imm: Denies: urticaria PFSH ED PFSH: Medical History Acute depression Acute on chronic anemia Alzheimer disease B12 deficiency Bradycardia Patient states her heart rate runs in 40s to 50s at home Breast cancer CHF (congestive heart failure) Chronic kidney disease Chronic respiratory failure with hypoxia and hypercapnia COPD (chronic obstructive pulmonary disease) COPD (chronic obstructive pulmonary disease) D-dimer, elevated DVT (deep venous thrombosis) GERD (gastroesophageal reflux disease) Hematoma Small complex fluid lesion adjacent to superficial thrombophlebitis in the left calf, 26 x 10 x 24 mm, HTN (hypertension) Hyperlipidemia IBS (irritable bowel syndrome) Leg swelling 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, N0, M0, G1 Muscle spasm Obstructive sleep apnea Presence of IVC filter Pulmonary emboli Rheumatoid arthritis Seasonal allergic rhinitis Superficial thrombophlebitis Tachycardia Varicose veins of left leg with edema Surgical History H/O neck surgery H/O shoulder surgery H/O wrist surgery H/O: knee surgery History of back surgery History of cholecystectomy History of ear surgery History of hysterectomy History of lumpectomy of right breast Family History Father CAD (coronary artery disease) Mother CAD (coronary artery disease) Brother CAD (coronary artery disease) Sister Cancer Other Diabetes Social History Smoking and tobacco status: never smoked Quit status (tobacco): has quit using tobacco Year quit tobacco: 1995 - 1PPD x 40 Years Alcohol intake: never Lives independently: Yes Household members: spouse Marital status: Current occupational status: retired History of recent travel: No Current gender identity: Female Physical Exam Const: COMMON NORMALS: no acute distress, patient oriented x3 and healthy appearing HENMT: COMMON NORMALS: normocephalic and atraumatic HEAD & SCALP: normocephalic and atraumatic Eye: COMMON NORMALS: Equal, round and reactive pupils present and EOMs intact bilaterally PUPIL: Yes Equal, round and reactive pupils present Neck/C-Spine: COMMON NORMALS: full ROM and supple Chest: COMMONS NORMALS: normal inspection of the chest and normal palpation of entire chest wall Resp: COMMON NORMALS: normal respiratory effort, No retractions, No use of accessory muscles and clear to auscultation bilaterally AUSCULTATION: clear to auscultation bilaterally Cardio: COMMON NORMALS: regular rate, regular rhythm and No murmurs present (Cardio) RATE: regular rate RHYTHM: regular rhythm GI: COMMON NORMALS: Normal to inspection, nondistended, normoactive bowel sounds present, Soft to palpation, non-tender and no masses PALPATION: Yes Soft to palpation Extremity: NARRATIVE EXTREMITY EXAM: Some slight tenderness to the left elbow with mild swelling full range of motion without pain distal pulses and sensation intact no signs of cellulitis no warmth to touch Neuro: COMMON NORMALS: patient oriented x3, moves all extremities and no focal motor deficits Psych: COMMON NORMALS: mental status grossly normal, Normal thought process present and cooperative THOUGHT PROCESS: Normal thought process present Skin: COMMON NORMALS: no rashes or lesions noted and no wounds GENERAL SKIN EXAM: no rashes or lesions noted Course Vital Signs: Vital signs: Vital Signs Temperature 98.2 F 01/01/22 19:48 Pulse Rate 75 01/01/22 19:48 Respiratory Rate 18 01/01/22 19:48 Blood Pressure 147/64 01/01/22 19:48 Pulse Oximetry 98 01/01/22 19:48 MDM - Extremity (Nontraumatic) Medical Decision Making Patient presents with left elbow pain likely arthritic no signs of septic joint ultrasound shows no DVT she is stable for discharge is to follow-up with PCP return if worsening. Lab Data Radiology Impressions Venous Duplex 01/01/22 19:44 IMPRESSION: No evidence of deep vein thrombosis in the left arm. Discharge Plan Discharge Patient Disposition: Home Clinical Impression: Elbow pain, left Condition: Stable Prescriptions: New Naprosyn 500 mg tablet 500 mg PO BID PRN (Reason: pain) Qty: 20 0RF No Action nitroglycerin 0.4 mg tablet, sublingual 0.4 mg sublingual Q5M PRN (Reason: Chest Pain) 0RF Rx Instructions: do not exceed 3 doses per episode (DME) Power step arch support See Rx Instructions .Route .MEDSUPPLY Qty: 2 0RF Rx Instructions: As directed Trelegy Ellipta 100-62.5-25 mcg blister with device 1 inh inhalation DAILY 30 Days Qty: 60 6RF metoprolol tartrate 25 mg tablet 12.5 mg PO BID 0RF gabapentin 300 mg capsule See Rx Instructions .ROUTE .COMPLEX 0RF Rx Instructions: 600 mg orally in the morning / 900 mg in the evening rosuvastatin [Crestor] 10 mg tablet 10 mg PO DAILY 0RF donepezil 10 mg tablet 10 mg PO DAILY 0RF potassium chloride [Klor-Con M20] 20 mEq tablet,ER particles/crystals 20 meq PO DAILY 0RF citalopram 20 mg tablet 20 mg PO DAILY 0RF ferrous sulfate 324 mg (65 mg iron) tablet,delayed release (DR/EC) 324 mg PO DAILY 0RF mecobalamin (vitamin B12) 1,000 mcg tablet,chewable 1,000 mcg PO DAILY 0RF aspirin [Adult Aspirin Regimen] 81 mg tablet,delayed release (DR/EC) 81 mg PO DAILY 0RF Hold Instructions: Resume on 09/17/21. magnesium oxide 500 mg capsule 500 mg PO DAILY 0RF fluticasone propionate [Flonase Allergy Relief] 50 mcg/actuation spray,suspension 1 spray INTRANASAL BID 0RF albuterol sulfate 2.5 mg /3 mL (0.083 %) solution for nebulization 2.5 mg INHALATION BID PRN (Reason: Shortness Of Breath Or Wheezing) 0RF prednisone 20 mg tablet 40 mg PO DAILY 5 Days Qty: 10 0RF levofloxacin 750 mg tablet 750 mg PO DAILY 5 Days Qty: 5 0RF anastrozole 1 mg Tablet 1 mg PO DAILY 0RF tramadol 50 mg Tablet 50 mg PO TID PRN (Reason: Pain) 0RF bumetanide 1 mg Tablet 1 mg PO DAILY 0RF Eliquis 5 mg Tablet 5 mg PO BID 0RF Hold Instructions: Resume on 09/17/21. dicyclomine 20 mg tablet 20 mg PO BID PRN (Reason: stomach cramps) 0RF pantoprazole 40 mg tablet,delayed release (DR/EC) 40 mg PO BID 30 Days Qty: 60 0RF ferrous sulfate [Iron (ferrous sulfate)] 325 mg (65 mg iron) tablet 325 mg PO DAILY Qty: 90 3RF polyethylene glycol 3350 [Miralax] 17 gram/dose powder 8.5 g PO DAILY PRN (Reason: constipation) Qty: 119 0RF ascorbic acid (vitamin C) [Vitamin C] 500 mg capsule, extended release 500 mg PO DAILY Qty: 90 3RF Venofer 200 mg iron/10 mL solution 200 mg IV .[id number] Qty: 50 0RF Rx Instructions: administer over 2-5 mins Discharge Orders: Discharge ED (Routine); Ordered 01/01/22 Ordered By: Sean Salinas Referrals: Zhang Gamboa MD [Primary Care Provider] - 1-3 days Discharge Diet: Advance as tolerated Discharge Activity: Resume usual activity Patient Instructions: Arthralgia (ED) Coding Level of Care Code ED Sustainability Officer for Gus Fwd Exam Comprehensive
[2022-01-01] MEDS: naproxen 500 mg Tablet PO (22:25)
[2022-01-01 22:35] VITALS: BP 141/41; RESP 20; O2SAT 95
== END 2022-01-01 22:37 | disposition home or self-care (01) ==
PROVIDERS: Emergency Provider Emergency Medicine; PCP Family Medicine
DX: M25.522 Pain in left elbow (principal); M79.89 Other specified soft tissue disorders; M06.9 Rheumatoid arthritis, unspecified; R20.0 Anesthesia of skin; Z86.718 Personal history of other venous thrombosis and embolism; Z79.01 Long term (current) use of anticoagulants; Z79.82 Long term (current) use of aspirin
CPT/HCPCS: 93971; 99283

== ENCOUNTER 2022-01-25 13:00 | Oncology outpatient (recurring) (ONCR) | payer MEDICARE, SELFPAY ==
[2022-01-04 12:19] LABS: Basophils % 0.6 %; Eosinophils # 0.2 10^3/uL (0.0-0.8); Eosinophils % 2.4 %; Hematocrit 21.2 % (37.0-47.0); Lymphocytes # 0.7 10^3/uL (0.8-4.8); Lymphocytes % 10.6 %; Mean Corpuscular HGB Conc 26.9 g/dL (30.0-36.0); Mean Corpuscular Hemoglobin 28.1 pg (28.0-34.0); Mean Corpuscular Volume 104.4 fl (81-99); Mean Platelet Volume 9.4 fL (7.4-10.4); Monocytes # 0.8 10^3/uL (0.2-0.9); Neutrophils # 5.18 10^3/uL (1.8-7.7); Neutrophils % 73.8 %; Nucleated Red Blood Cells % 0.6 %; Platelet Count 327 10^3/cmm (130-400); Red Blood Count 2.03 10^6/uL (4.1-5.3); Red Cell Distribution Width 16.1 % (12.1-15.1)
[2022-01-04 12:33] LABS: Hemoglobin 5.7 g/dL (11.5-15.3)
[2022-01-04 12:41] LABS: Ferritin 27 ng/mL (15-150); Iron 121 ug/dL (37-145); Percent Saturation 36.8 % (20-50); Total Iron Binding Capacity 328 mcg/dl; Unsaturated Iron Binding 207 ug/dL (112-347)
[2022-01-04] MEDS: sodium chloride 0.9% 250 ML 25 ML IV (14:06)
[2022-01-04] MEDS: acetaminophen 325 mg Tablet 650 MG PO (14:09)
[2022-01-04] MEDS: diphenhydrAMINE 25 mg Capsule PO (14:10)
[2022-01-04 14:20] VITALS: BP 155/69; PULSE 63; RESP 18; TEMP 36.9; O2SAT 99
[2022-01-04 14:35] VITALS: BP 101/61; PULSE 63; RESP 18; TEMP 36.9; O2SAT 99
[2022-01-04] MEDS: FUROsemide 10 mg/mL SDV 2mL 20 MG IVP (16:03)
[2022-01-04 16:05] VITALS: BP 159/69; PULSE 64; RESP 18; TEMP 37.1; O2SAT 97
[2022-01-04 16:20] VITALS: BP 157/82; PULSE 64; RESP 18; TEMP 36.6; O2SAT 97
[2022-01-04 17:45] VITALS: BP 156/87; PULSE 67; RESP 18; TEMP 36.6; O2SAT 98
[2022-01-11 08:31] LABS: Basophils # 0.1 10^3/uL (0.0-0.1); Basophils % 1.6 %; Eosinophils # 0.3 10^3/uL (0.0-0.8); Eosinophils % 7.7 %; Hematocrit 30.1 % (37.0-47.0); Hemoglobin 8.4 g/dL (11.5-15.3); Lymphocytes # 0.8 10^3/uL (0.8-4.8); Lymphocytes % 18.8 %; Mean Corpuscular HGB Conc 27.9 g/dL (30.0-36.0); Mean Corpuscular Hemoglobin 27.2 pg (28.0-34.0); Mean Corpuscular Volume 97.4 fl (81-99); Mean Platelet Volume 8.5 fL (7.4-10.4); Monocytes % 22.5 %; Neutrophils # 2.12 10^3/uL (1.8-7.7); Neutrophils % 49.2 %; Nucleated Red Blood Cells % 0 %; Platelet Count 338 10^3/cmm (130-400); Red Blood Count 3.09 10^6/uL (4.1-5.3); Red Cell Distribution Width 15.5 % (12.1-15.1); White Blood Count 4.3 10^3/uL (4.0-10.0)
[2022-01-11 08:49] LABS: D Dimer 1.04 ug/mIFEU (0-0.59)
[2022-01-11 12:14] LABS: Ferritin 29 ng/mL (15-150); Iron 181 ug/dL (37-145); Percent Saturation 48.6 % (20-50); Total Iron Binding Capacity 372 mcg/dl; Unsaturated Iron Binding 191 ug/dL (112-347)
[2022-01-11 12:29] LABS: Vitamin B12 1509 pg/mL (232-1245)
--- NOTE | 2022-01-12 08:00 | CT_ITS ---
WS: [id number] CT ABDOMEN TECHNIQUE: Noncontrast CT of the abdomen with coronal and sagittal reformatted images. CLINICAL INFORMATION: rule out hematoma COMPARISON: CT 09/10/2021 and 06/24/2020 DLP: 669.[address] scans at [facility] use at least one of these dose optimization techniques: automated e xposure control; mA and/or kV adjustment per patient size (includes targeted exams where dose is matc hed to clinical indication); or iterative reconstruction. FINDINGS: Lung bases are well aerated. Noncontrast liver is normal. Cholecystectomy clips. Normal GE junction. A few splenic granulomas. Fatty atrophy of the pancreas. Common bile ductal dilatation likely physiol ogic postcholecystectomy. IVC filter. Adrenal glands are normal. Nonobstructing LEFT renal parenchyma l and calyceal calcifications. No hydronephrosis in either kidney. Moderate aortic calcification. Normal caliber abdominal aorta. Tiny fat-containing umbilical hernia. No evidence of retroperitoneal hematoma. No free fluid in the abdomen. Pedicle screw fixation L2-L4 w ith interconnecting rods. Laminectomy defects. Hardware appears intact. Osteopenia. Hypertrophic leavitt ges thoracic spine. CT/CT abdomen wo con [id number] IMPRESSION: 1. No evidence of retroperitoneal hematoma. No free fluid in the abdomen. 2. Prior cholecystectomy. Physiologic dilatation of the common bile duct is un changed. 3. IVC filter. 4. No other significant changes compared to previous.
--- NOTE | 2022-01-12 08:30 | CT_ITS ---
WS: [id number] CTA THORACIC TECHNIQUE: Contrast enhanced CTA of the thoracic aorta with coronal and sagittal reformatted images a nd maximum intensity projection (MIP) images. CLINICAL INFORMATION: CTA Chest COMPARISON: CTA April 07, 2021 and nuclear medicine study November 23, 2021 DLP: 1233.[address] scans at [facility] use at least one of these dose optimization techniques: automated e xposure control; mA and/or kV adjustment per patient size (includes targeted exams where dose is matc hed to clinical indication); or iterative reconstruction. FINDINGS: Proximal main pulmonary arteries are normal. Normal segmental and subsegmental pulmonary arteries. No rmal caliber thoracic aorta. Aortic calcification. Coronary calcification. IVC filter. Cholecystectom y clips. No mediastinal or hilar lymphadenopathy. Moderate spondylitic changes thoracic spine. Hypertrophic changes thoracic spine. Moderate chronic em physematous changes. No acute pulmonary infiltrates. No focal pneumonia or pleural fluid. Subsegmenta l atelectasis RIGHT middle lobe. Partially visualized cervical fusion and lumbar fusion. CT/CT angio chest [id number] IMPRESSION: 1. No evidence of pulmonary embolus. 2. Normal caliber thoracic aorta. 3. Chronic emphysematous changes. No acute pulmonary infiltrates. 4. Prior cholecystectomy and IVC filter.
--- NOTE | 2022-01-12 09:00 | USCV_ITS ---
Maddison Jenkins Age: 76 Gender: F : 1945 Exam Date: 01/12/2022 08:13 Ordering Phys: Arabella Collins MD Technologist: Marilee Molina Exam Location: [facility] – [place] Indication: History of DVT and Rt GSV ablation in 2018 HISTORY: History of DVT and Rt GSV ablation in 2018. Been off thinners for 2 weeks PROCEDURES: The venous duplex Doppler examination of both lower extremities was performed in the standard fashion. The following venous structures were evaluated: common femoral vein, profunda vein, proximal portion of the greater saphenous vein, superficial femoral vein, and the popliteal vein. In addition, the posterior tibial and peroneal trunk were evaluated. Serial compression, augmentation maneuvers, and spectral Doppler flow evaluation were performed. FINDINGS: Normal 2-D Doppler and augmentation and compressibility throughout the lower extremity venous structures. Additional imaging through the proximal calf veins also reveals no thrombus. Limited evaluation of the greater saphenous vein is patent with no thrombus.. Palpable area in the left calf maybe scar tissue, hematoma or edema. No increased vascularity. CONCLUSIONS No DVT bilateral lower extremities. Dr. Margoth Esquivel DO (Electronically Signed) Final Date: 12 Jan 2022 09:00 S
[2022-01-12 10:41] LABS: Blood Urea Nitrogen 11 mg/dL (8-23)
[2022-01-12] MEDS: iohexol 350 mg/mL 100 mL Btl IV (12:34)
[2022-01-25 15:36] LABS: Basophils # 0.1 10^3/uL (0.0-0.1); Basophils % 1.5 %; Eosinophils # 0.3 10^3/uL (0.0-0.8); Eosinophils % 5.9 %; Hematocrit 34.8 % (37.0-47.0); Hemoglobin 9.9 g/dL (11.5-15.3); Lymphocytes # 0.9 10^3/uL (0.8-4.8); Lymphocytes % 15.8 %; Mean Corpuscular HGB Conc 28.4 g/dL (30.0-36.0); Mean Corpuscular Hemoglobin 25.8 pg (28.0-34.0); Mean Corpuscular Volume 90.9 fl (81-99); Mean Platelet Volume 9.6 fL (7.4-10.4); Monocytes # 0.9 10^3/uL (0.2-0.9); Monocytes % 16.4 %; Neutrophils # 3.24 10^3/uL (1.8-7.7); Neutrophils % 60.2 %; Nucleated Red Blood Cells % 0 %; Platelet Count 298 10^3/cmm (130-400); Red Blood Count 3.83 10^6/uL (4.1-5.3); Red Cell Distribution Width 14.9 % (12.1-15.1); White Blood Count 5.4 10^3/uL (4.0-10.0)
[2022-01-25 16:34] LABS: Alanine Aminotransferase 11 U/L (0-33); Albumin Level 3.9 g/dL (3.5-5.2); Alkaline Phosphatase 82 IU/L (35-105); Anion Gap 12.8 (5-19); Aspartate Amino Transferase 26 U/L (0-32); Blood Urea Nitrogen 26 mg/dL (8-23); Calcium 9.1 mg/dL (8.5-10.5); Carbon Dioxide 35 mmol/L (22-29); Chloride 98 mmol/L (98-107); Ferritin 34 ng/mL (15-150); Globulin 2.5 g/dL (1.3-4.6); Glucose 81 mg/dL (65-115); Iron 113 ug/dL (37-145); Osmolality Calculated 298 mOsm/kg (285-295); Percent Saturation 27.8 % (20-50); Potassium 3.8 mmol/L (3.5-5.1); Sodium 142 mmol/L (136-145); Total Bilirubin 0.3 mg/dL (0.15-1.2); Total Iron Binding Capacity 406 mcg/dl; Total Protein 6.4 g/dL (6.6-8.7); Unsaturated Iron Binding 293 ug/dL (112-347)
[2022-01-25 16:37] LABS: Creatinine Clr Calc Pharmacy 37.7188
== END 2022-01-30 23:59 | disposition home or self-care (01) ==
LOC: ONCMED 13:20 → RAD 13:20
PROVIDERS: Nurse Practitioner Family; PCP Family Medicine; Visit Provider Internal Medicine Hematology & Oncology
DX: D50.0 Iron deficiency anemia secondary to blood loss (chronic) (principal); I26.99 Other pulmonary embolism without acute cor pulmonale; I82.502 Chronic embolism and thrombosis of unspecified deep veins of left lower extremity; Z79.01 Long term (current) use of anticoagulants; R55 Syncope and collapse; Z85.3 Personal history of malignant neoplasm of breast; Z79.899 Other long term (current) drug therapy
CPT/HCPCS: 36415; 36430; 71275; 74150; 80053; 82565; 82607; 82728; 83540; 83550; 84520; 85025; 85378; 86850; 86900; 86920; 93970; 96374; 99214; 99999; J1940; J7050; P9016

== ENCOUNTER → 2022-01-26 09:28 | Outpatient (BNVA) | payer MEDICARE, SELFPAY | PROVIDERS: PCP Family Medicine; Visit Provider Internal Medicine Cardiovascular Disease | DX: I11.0 Hypertensive heart disease with heart failure (principal); I50.9 Heart failure, unspecified; I83.892 Varicose veins of left lower extremity with other complications; D64.9 Anemia, unspecified; Z87.891 Personal history of nicotine dependence | CPT/HCPCS: 99214 ==

== ENCOUNTER 2022-02-08 08:02 | Oncology outpatient (recurring) (ONCR) | payer MEDICARE, SELFPAY ==
[2022-02-08 08:33] LABS: Basophils # 0.1 10^3/uL (0.0-0.1); Basophils % 2.2 %; Eosinophils # 0.3 10^3/uL (0.0-0.8); Eosinophils % 7.5 %; Hematocrit 41.7 % (37.0-47.0); Lymphocytes % 21.1 %; Mean Corpuscular HGB Conc 28.8 g/dL (30.0-36.0); Mean Corpuscular Hemoglobin 26.1 pg (28.0-34.0); Mean Corpuscular Volume 90.7 fl (81-99); Mean Platelet Volume 9.8 fL (7.4-10.4); Monocytes # 0.7 10^3/uL (0.2-0.9); Monocytes % 15.2 %; Neutrophils # 2.45 10^3/uL (1.8-7.7); Nucleated Red Blood Cells % 0 %; Platelet Count 246 10^3/cmm (130-400); Red Cell Distribution Width 15.3 % (12.1-15.1); White Blood Count 4.5 10^3/uL (4.0-10.0)
[2022-02-08 08:59] LABS: Ferritin 52 ng/mL (15-150); Iron 222 ug/dL (37-145); Percent Saturation 52.6 % (20-50); Total Iron Binding Capacity 422 mcg/dl; Unsaturated Iron Binding 200 ug/dL (112-347)
== END 2022-03-01 23:59 | disposition home or self-care (01) ==
PROVIDERS: PCP Family Medicine; Visit Provider Internal Medicine Hematology & Oncology
DX: D50.0 Iron deficiency anemia secondary to blood loss (chronic) (principal); I26.99 Other pulmonary embolism without acute cor pulmonale; I82.502 Chronic embolism and thrombosis of unspecified deep veins of left lower extremity; Z79.01 Long term (current) use of anticoagulants; J43.9 Emphysema, unspecified; Z87.891 Personal history of nicotine dependence; J96.92 Respiratory failure, unspecified with hypercapnia; Z79.899 Other long term (current) drug therapy
CPT/HCPCS: 36415; 82728; 83540; 83550; 85025; 99214

== ENCOUNTER → 2022-03-01 10:07 | Outpatient (BNVA) | payer MEDICARE, SELFPAY | PROVIDERS: PCP Family Medicine; Visit Provider Internal Medicine Critical Care Medicine | DX: I27.82 Chronic pulmonary embolism (principal); J44.9 Chronic obstructive pulmonary disease, unspecified; J96.11 Chronic respiratory failure with hypoxia; J96.12 Chronic respiratory failure with hypercapnia; R07.9 Chest pain, unspecified; G47.33 Obstructive sleep apnea (adult) (pediatric); Z87.891 Personal history of nicotine dependence | CPT/HCPCS: 99214 ==

== ENCOUNTER 2022-03-08 14:46 | Outpatient (CLI) | payer MEDICARE, SELFPAY ==
[2022-03-08] MEDS: perflutren protein-a microsphr 0.22 mg/mL SDV 3 mL IV (15:15)
--- NOTE | 2022-03-08 15:15 | USCV_ITS ---
Maddison Jenkins Age: 76 Gender: F : 1945 Exam Date: 03/08/2022 15:16 Ordering Phys: Isaura Woodard MD ([email or web address]) Technologist: Sixto Moscoso [place] [facility] [place]ication: copd BP: 120 / 68 HR: 56 Rhythm: Sinus Technical Quality: Adequate MEASUREMENTS (Male / Female) Normal Values 2D ECHO LV Diastolic Diameter PLAX 4.8 cm 4.2 - 5.9 / 3.9 - 5.3 cm LV Systolic Diameter PLAX 2.8 cm IVS Diastolic Thickness 1.3 cm 0.6 - 1.0 / 0.6 - 0.9 cm IVS Systolic Thickness 1.5 cm LVPW Diastolic Thickness 1.1 cm 0.6 - 1.0 / 0.6 - 0.9 cm LVPW Systolic Thickness 1.4 cm LVOT Diameter 2.1 cm LV Ejection Fraction 2D Teich 72.2 % LV Ejection Fraction MOD 2C 65.1 % LV Ejection Fraction 2C AL 65.1 % LA Diameter 3.7 cm Aorta at Sinotubular Diameter 2.5 cm M-MODE LV Diastolic Diameter MM 5.0 cm 4.2 - 5.9 / 3.9 - 5.3 cm LV Systolic Diameter MM 3.3 cm LV Ejection Fraction MM Teich 64.4 % IVS Diastolic Thickness MM 1.1 cm 0.6 - 1.0 / 0.6 - 0.9 cm IVS Systolic Thickness MM 1.8 cm LVPW Diastolic Thickness MM 1.5 cm 0.6 - 1.0 / 0.6 - 0.9 cm LVPW Systolic Thickness MM 1.8 cm RV Diastolic Diameter MM 1.5 cm Aortic Annulus Diameter 3.0 cm LA Ao Ratio MM 1.4 MV E Point Septal Separation 1.0 cm DOPPLER AV Peak Velocity 194.0 cm/s LVOT Peak Velocity 118.0 cm/s AV Area Cont Eq vti 2.1 cm squared AV Area Cont Eq pk 2.1 cm squared MV Area PHT 5.0 cm squared Mitral E to A Ratio 1.1 MV E' Velocity 57.0 cm/s Mitral E to MV E' Ratio 8.8 Mitral E to LV E' Lateral Ratio 8.4 Mitral E to LV E' Septal Ratio 9.3 TR Peak Velocity 171.7 cm/s TR Peak Gradient 11.8 mmHg TV Peak E Velocity 123.0 cm/s Right Atrial Pressure 3.0 mmHg Pulmonary Artery Systolic Pressu 14.8 mmHg PV Peak Velocity 114.0 cm/s FINDINGS Left Ventricle Normal left ventricular size. LV systolic function is normal with EF of 55-60%. No regional wall motion abnormalities. Normal diastolic dysfunction Right Ventricle The right ventricle is normal in size and function. Right Atrium The right atrium is normal in size. Left Atrium The left atrium is dilated Mitral Valve Mild mitral annular calcification without significant stenosis or prolapse. There is mild mitral regurgitation. Aortic Valve Structurally normal aortic valve without significant sclerosis or stenosis. There is no aortic regurgitation. Tricuspid Valve Structurally normal tricuspid valve without significant stenosis. Trace tricuspid regurgitation. Insufficient TR jet to calculate RVSP Pulmonic Valve Not well visualized Pericardium Normal pericardium without effusion. Aorta Normal ascending aorta dimension. IVC CONCLUSIONS LV systolic function is normal with EF of 55-60% Normal diastolic dysfunction Left atrial enlargement Mild mitral annular calcification. Mild mitral regurgitation Trace tricuspid regurgitation Compared to prior echocardiogram from 06/04/2020, RV function and size appear to be normal now. Tim Ortega MD (Electronically Signed) Final Date: 09 March 2022 16:02 S
[2022-03-08 15:33] LABS: Basophils # 0.1 10^3/uL (0.0-0.1); Basophils % 1.1 %; Eosinophils # 0.3 10^3/uL (0.0-0.8); Eosinophils % 5.9 %; Hematocrit 32.7 % (37.0-47.0); Hemoglobin 9.6 g/dL (11.5-15.3); Lymphocytes # 0.7 10^3/uL (0.8-4.8); Lymphocytes % 13.6 %; Mean Corpuscular HGB Conc 29.4 g/dL (30.0-36.0); Mean Corpuscular Hemoglobin 26.5 pg (28.0-34.0); Mean Corpuscular Volume 90.3 fl (81-99); Mean Platelet Volume 9.3 fL (7.4-10.4); Monocytes % 18.6 %; Neutrophils # 3.28 10^3/uL (1.8-7.7); Neutrophils % 60.4 %; Nucleated Red Blood Cells % 0 %; Platelet Count 266 10^3/cmm (130-400); Red Blood Count 3.62 10^6/uL (4.1-5.3); Red Cell Distribution Width 15.1 % (12.1-15.1); White Blood Count 5.4 10^3/uL (4.0-10.0)
[2022-03-08 15:56] LABS: Anion Gap 13.6 (5-19); Blood Urea Nitrogen 29 mg/dL (8-23); Calcium 8.8 mg/dL (8.5-10.5); Carbon Dioxide 32 mmol/L (22-29); Chloride 101 mmol/L (98-107); Ferritin 52 ng/mL (15-150); Glucose 94 mg/dL (65-115); Iron 50 ug/dL (37-145); Magnesium 2.4 mg/dL (1.7-2.3); NT Pro B Type Natriuretic Pept 503 pg/mL (0-450); Osmolality Calculated 300 mOsm/kg (285-295); Percent Saturation 15.1 % (20-50); Potassium 4.6 mmol/L (3.5-5.1); Sodium 142 mmol/L (136-145); Total Iron Binding Capacity 330 mcg/dl; Unsaturated Iron Binding 280 ug/dL (112-347)
== END 2022-03-08 14:47 | disposition home or self-care (01) ==
PROVIDERS: Internal Medicine Hematology & Oncology; PCP Family Medicine; Visit Provider Internal Medicine Cardiovascular Disease
DX: I95.9 Hypotension, unspecified (principal); I50.9 Heart failure, unspecified; R06.02 Shortness of breath; C50.411 Malignant neoplasm of upper-outer quadrant of right female breast; D64.9 Anemia, unspecified
CPT/HCPCS: 80048; 82728; 83540; 83550; 83735; 83880; 85025; C8929

== ENCOUNTER 2022-03-28 12:37 | Outpatient (CLI) | payer MEDICARE, SELFPAY ==
--- NOTE | 2022-03-28 12:51 | XR_ITS ---
WS: [id number] Exam: XR elbow LT min 3V* [id number] Date/Time of Exam: 03/28/2022 12:53 PM Reason For Exam: PAIN No fracture or dislocation. No joint effusion noted. Mild posterior soft tissue swelling. Minimal deg enerative change. XR/XR elbow LT min 3V* [id number] IMPRESSION: 1. Posterior soft tissue swelling and minimal degenerative change.
== END 2022-03-28 12:38 | disposition home or self-care (01) ==
PROVIDERS: PCP Family Medicine; Visit Provider Nurse Practitioner Family
DX: M25.522 Pain in left elbow (principal); C50.411 Malignant neoplasm of upper-outer quadrant of right female breast; D64.9 Anemia, unspecified; M79.89 Other specified soft tissue disorders; M70.22 Olecranon bursitis, left elbow
CPT/HCPCS: 73080; 85025; 86850; 86870; 86900; 86920; 99203

== ENCOUNTER 2022-03-29 09:00 | Oncology outpatient (recurring) (ONCR) | payer MEDICARE, SELFPAY ==
[2022-03-22 14:27] LABS: Basophils # 0.1 10^3/uL (0.0-0.1); Basophils % 0.8 %; Eosinophils # 0.4 10^3/uL (0.0-0.8); Eosinophils % 5.8 %; Hematocrit 31.1 % (37.0-47.0); Hemoglobin 8.6 g/dL (11.5-15.3); Lymphocytes # 0.9 10^3/uL (0.8-4.8); Mean Corpuscular HGB Conc 27.7 g/dL (30.0-36.0); Mean Corpuscular Hemoglobin 26.2 pg (28.0-34.0); Mean Corpuscular Volume 94.8 fl (81-99); Monocytes % 16.3 %; Neutrophils # 3.84 10^3/uL (1.8-7.7); Neutrophils % 61.9 %; Nucleated Red Blood Cells % 0 %; Platelet Count 357 10^3/cmm (130-400); Red Blood Count 3.28 10^6/uL (4.1-5.3); Red Cell Distribution Width 15.1 % (12.1-15.1); White Blood Count 6.2 10^3/uL (4.0-10.0)
[2022-03-28 13:29] LABS: Basophils # 0.1 10^3/uL (0.0-0.1); Basophils % 0.9 %; Eosinophils # 0.3 10^3/uL (0.0-0.8); Eosinophils % 4.8 %; Hematocrit 29.3 % (37.0-47.0); Hemoglobin 8.1 g/dL (11.5-15.3); Lymphocytes # 0.8 10^3/uL (0.8-4.8); Lymphocytes % 13.5 %; Mean Corpuscular HGB Conc 27.6 g/dL (30.0-36.0); Mean Corpuscular Hemoglobin 26.6 pg (28.0-34.0); Mean Corpuscular Volume 96.1 fl (81-99); Mean Platelet Volume 9.1 fL (7.4-10.4); Monocytes # 0.9 10^3/uL (0.2-0.9); Monocytes % 15.2 %; Neutrophils # 3.69 10^3/uL (1.8-7.7); Neutrophils % 65.4 %; Nucleated Red Blood Cells % 0 %; Platelet Count 304 10^3/cmm (130-400); Red Blood Count 3.05 10^6/uL (4.1-5.3); Red Cell Distribution Width 15.2 % (12.1-15.1); White Blood Count 5.6 10^3/uL (4.0-10.0)
[2022-03-29] VITALS (10 sets, daily range): BP systolic 113–134; BP diastolic 39–69; PULSE 40–52; RESP 18–20; TEMP 36.2–36.8; O2SAT 97–100
[2022-03-29] MEDS: diphenhydrAMINE 25 mg Capsule PO (10:40)
[2022-03-29] MEDS: acetaminophen 325 mg Tablet 650 MG PO (10:40)
[2022-03-29] MEDS: sodium chloride 0.9% 250 ML 75 ML IV (10:51)
[2022-03-29] MEDS: FUROsemide 10 mg/mL SDV 2mL 20 MG IVP (12:45)
--- NOTE | 2022-03-29 15:16 | PC.NURSE ---
she was called with the assessment how she was feeling due to hemoglobin 8.1 with Ana Paredes ordering 2 units of prbc due to shortness of breath. Patient is wearing oxygen 2 liter s per min
== END 2022-04-01 23:59 | disposition home or self-care (01) ==
PROVIDERS: Nurse Practitioner Family; PCP Family Medicine; Visit Provider Internal Medicine Hematology & Oncology
DX: D64.9 Anemia, unspecified (principal); C50.411 Malignant neoplasm of upper-outer quadrant of right female breast
CPT/HCPCS: 36430; 80503; 85025; 86850; 86870; 86900; 86920; 96375; 99214; J1940; J7050; P9016

== ENCOUNTER 2022-05-18 07:33 | Outpatient (CLI) | payer MEDICARE, SELFPAY ==
--- NOTE | 2022-05-18 08:01 | FL_ITS ---
WS: [id number] Air contrast barium enema, 05/18/2022 Clinical Data: BLOOD LOSS/ANEMIA Comparison: None. Fluoroscopy time: 1min [id number] # of spot films: 11 Findings: The preliminary film demonstrates a posterior lumbar fusion with bilateral pedicle screws L2-L4 and c onnecting rods. There is an inferior vena caval filter. There is a bony fusion from L3 through S1 of the lumbar spine. There are clips from a cholecystectomy in the right upper quadrant. The air and barium mixture filled the entire colon, and there are numerous diverticula throughout th e colon especially from the transverse colon into the descending colon. The haustral pattern is rahul l. There were no polyps, masses or obstruction. The mucosal surface was normal. The cecum was filled but there was no terminal ileal reflux. The ileocecal valve was identified. The post evacuation film was not remarkable. FL/FL barium enema [id number] Impression: 1. Numerous diverticula throughout the colon involving mostly the transverse an d descending colon. 2. Negative for polyp, mass or obstruction.
== END 2022-05-18 07:34 | disposition home or self-care (01) ==
PROVIDERS: PCP Family Medicine; Visit Provider Family Medicine
DX: D50.0 Iron deficiency anemia secondary to blood loss (chronic) (principal); K57.30 Diverticulosis of large intestine without perforation or abscess without bleeding
CPT/HCPCS: 74270

== ENCOUNTER 2022-05-24 08:30 | Oncology outpatient (recurring) (ONCR) | payer MEDICARE, SELFPAY ==
[2022-05-08 13:20] LABS: Basophils # 0.1 10^3/uL (0.0-0.1); Basophils % 1.2 %; Eosinophils # 0.3 10^3/uL (0.0-0.8); Eosinophils % 6.1 %; Hematocrit 36.3 % (37.0-47.0); Hemoglobin 10.6 g/dL (11.5-15.3); Lymphocytes # 0.9 10^3/uL (0.8-4.8); Lymphocytes % 17.7 %; Mean Corpuscular HGB Conc 29.2 g/dL (30.0-36.0); Mean Corpuscular Hemoglobin 28.9 pg (28.0-34.0); Mean Corpuscular Volume 98.9 fl (81-99); Mean Platelet Volume 9.3 fL (7.4-10.4); Monocytes # 0.7 10^3/uL (0.2-0.9); Monocytes % 14.6 %; Neutrophils # 2.96 10^3/uL (1.8-7.7); Neutrophils % 60.2 %; Nucleated Red Blood Cells % 0 %; Platelet Count 235 10^3/cmm (130-400); Red Blood Count 3.67 10^6/uL (4.1-5.3); Red Cell Distribution Width 15.1 % (12.1-15.1); White Blood Count 4.9 10^3/uL (4.0-10.0)
[2022-05-08 13:49] LABS: Alanine Aminotransferase 13 U/L (0-33); Albumin Level 4.1 g/dL (3.5-5.2); Alkaline Phosphatase 78 U/L (35-105); Anion Gap 10.5 (5-19); Aspartate Amino Transferase 25 U/L (0-32); Blood Urea Nitrogen 27 mg/dL (8-23); Calcium 9.2 mg/dL (8.5-10.5); Carbon Dioxide 37 mmol/L (22-29); Chloride 98 mmol/L (98-107); Ferritin 39 ng/mL (15-150); Globulin 2.2 g/dL (1.3-4.6); Glucose 84 mg/dL (65-115); Iron 164 ug/dL (37-145); Osmolality Calculated 296 mOsm/kg (285-295); Percent Saturation 45.8 % (20-50); Potassium 4.5 mmol/L (3.5-5.1); Sodium 141 mmol/L (136-145); Total Bilirubin 0.3 mg/dL (0.15-1.2); Total Iron Binding Capacity 358 mcg/dl; Total Protein 6.3 g/dL (6.6-8.7); Unsaturated Iron Binding 194 ug/dL (112-347)
== END 2022-06-01 23:59 | disposition home or self-care (01) ==
PROVIDERS: Nurse Practitioner; PCP Family Medicine; Visit Provider Internal Medicine Hematology & Oncology
DX: D50.9 Iron deficiency anemia, unspecified (principal); Z86.711 Personal history of pulmonary embolism; Z86.718 Personal history of other venous thrombosis and embolism; Z79.01 Long term (current) use of anticoagulants; C50.411 Malignant neoplasm of upper-outer quadrant of right female breast; Z17.0 Estrogen receptor positive status [ER+]; Z79.818 Long term (current) use of other agents affecting estrogen receptors and estrogen levels; J44.9 Chronic obstructive pulmonary disease, unspecified; Z99.81 Dependence on supplemental oxygen; Z79.899 Other long term (current) drug therapy
CPT/HCPCS: 80053; 82728; 83540; 83550; 85025; 86850; 86900; 99214

== ENCOUNTER 2022-05-28 10:04 | Day surgery (SDC) | payer MEDICARE, SELFPAY ==
[2022-05-25 11:00] VITALS: BMI 28.8
[2022-05-28 10:58] VITALS: BP 150/69; PULSE 57; RESP 20; TEMP 36.3; O2SAT 100
[2022-05-28] MEDS: sodium chloride 0.9% 1,000 ML 30 ML IV (11:11)
[2022-05-28 11:20] LABS: Basophils # 0.1 10^3/uL (0.0-0.1); Basophils % 1.2 %; Eosinophils # 0.3 10^3/uL (0.0-0.8); Eosinophils % 6.5 %; Hematocrit 35.6 % (37.0-47.0); Hemoglobin 10.3 g/dL (11.5-15.3); Lymphocytes # 0.9 10^3/uL (0.8-4.8); Mean Corpuscular HGB Conc 28.9 g/dL (30.0-36.0); Mean Corpuscular Hemoglobin 29.3 pg (28.0-34.0); Mean Corpuscular Volume 101.4 fl (81-99); Mean Platelet Volume 9.5 fL (7.4-10.4); Monocytes # 0.8 10^3/uL (0.2-0.9); Monocytes % 15.2 %; Neutrophils # 2.91 10^3/uL (1.8-7.7); Neutrophils % 58.9 %; Nucleated Red Blood Cells % 0 %; Platelet Count 268 10^3/cmm (130-400); Red Blood Count 3.51 10^6/uL (4.1-5.3); White Blood Count 4.9 10^3/uL (4.0-10.0)
[2022-05-28 11:29] LABS: INR 0.88 (0.8-1.2)
--- NOTE | 2022-05-28 11:35 | ANES.PREANE2 ---
Pre-Anesthetic Assessment Height/Weight: Height 1.57 m Weight 71.577 kg Temp Pulse Resp BP Pulse Ox O2 Del Method O2 Flow Rate 97.3 F L 57 L 20 H 150/69 100 2 05/28/22 10:58 05/28/22 10:58 05/28/22 10:58 05/28/22 10:58 05/28/22 10:58 05/28/22 10:58 05/28/22 10:58 Preop Diagnosis: Anemia Operation Date: 05/28/22 12:00 Proposed Procedures p Bone Marrow Biospy With Aspiration/anemia D64.9(Not Applicable) - Arabella Collins MD Familial anesthetic complications: none Last intake: Intake Last Liquid Date 05/27/22 Last Liquid Time 19:00 Last Solid Date 05/27/22 Last Solid Time 18:00 Social No alcohol and No tobacco History of smoking quit 1989 Airway Submandibular: within normal limits Cervical ROM: within normal limits Mallampati: Class III Dentition: full Pulmonary Chronic Obstructive Pulmonary Disease and Sleep Apnea (CPAP compliant) 2018 PE and DVT, Home O2 use 2L cont. 3L at night. CV/HEM Atrial Fibrillation, Congestive Heart Failure, Hypertension and Myocardial Infarction (unsure) ECHO on chart renal stones Hepatic None reported GI Gastroesophageal Reflux Disease Metabolic Hyperlipidemia Musc/skel walker METS<4 Neuropsych None reported denies anxiety. Anesthetic Plan ASA status: 3 Anesthesia: MAC Medications/Allergies Home Medications Medication Instructions Recorded Confirmed Last Taken Type citalopram 20 mg tablet 20 mg PO DAILY 09/09/19 05/25/22 09/18/21 History donepezil 10 mg tablet 10 mg PO DAILY 09/09/19 05/25/22 09/18/21 History ferrous sulfate 324 mg (65 mg 324 mg PO DAILY 09/09/19 05/25/22 09/18/21 History iron) tablet,delayed release gabapentin 300 mg capsule See Rx Instructions .Route .COMPLEX 09/09/19 05/25/22 09/18/21 History aspirin 81 mg tablet,delayed 81 mg PO DAILY 12/10/19 05/25/22 09/18/21 History release (Adult Aspirin Regimen) magnesium oxide 500 mg capsule 500 mg PO DAILY 12/10/19 05/25/22 09/18/21 History mecobalamin (vitamin B12) 1,000 1,000 mcg PO DAILY 12/10/19 05/25/22 09/18/21 History mcg chewable tablet tramadol 50 mg tablet 50 mg PO TID PRN Pain 04/07/21 05/25/22 09/18/21 History Power step arch support #2 ea 05/04/21 05/24/22 09/18/21 Rx dicyclomine 20 mg tablet 20 mg PO QID PRN abdominal cramps 01/04/22 05/25/22 Unknown History ipratropium bromide 0.02 % 2.5 ml inhalation Q6H PRN 01/04/22 05/25/22 Unknown History solution for inhalation Shortness Of Breath tizanidine 4 mg capsule 4 mg PO QID PRN muscle spasms 01/04/22 05/25/22 Unknown History ascorbic acid (vitamin C) 500 mg 500 mg PO DAILY 01/26/22 05/25/22 Unknown History capsule fluticasone propionate 50 1 spray intranasal BID 01/26/22 05/25/22 Unknown History mcg/actuation nasal spray,suspension polyethylene glycol 3350 17 17 g PO DAILY 01/26/22 05/25/22 Unknown History gram/dose oral powder (Miralax) anastrozole 1 mg tablet 1 mg PO DAILY #90 tabs 05/22/22 05/25/22 Unknown Rx apixaban 2.5 mg tablet (Eliquis) 2.5 mg PO QDAY #180 tabs 05/22/22 05/25/22 Unknown Rx fluticasone fur. 100 mcg-umeclid 1 inh inhalation DAILY #60 ea 05/22/22 05/25/22 Unknown Rx 62.5 mcg-vilant 25 mcg inhalat.powder (Trelegy Ellipta) lisinopril 20 mg tablet 10 mg PO DAILY #45 tabs 05/22/22 05/25/22 Unknown Rx metoprolol tartrate 25 mg tablet 12.5 mg PO DAILY #45 tabs 05/22/22 05/25/22 Unknown Rx nitroglycerin 0.4 mg sublingual 0.4 mg sublingual Q5M PRN Chest 05/22/22 05/25/22 Unknown Rx tablet Pain #25 tabs potassium chloride 20 mEq 20 meq PO BID #180 tabs 05/22/22 05/25/22 Unknown Rx tablet,extended release(part/cryst) (Klor-Con M) rosuvastatin 10 mg tablet (Crestor) 10 mg PO DAILY #90 tabs 05/22/22 05/25/22 Unknown Rx Allergies Allergy/AdvReac Type Severity Reaction Status Date / Time No Known Allergies Allergy Verified 05/24/22 09:49 Current Medications Generic Name Dose Route Start Last Admin Trade Name Freq PRN Reason Stop Dose Admin Sodium Chloride 1,000 mls @ 30 mls/hr 05/28/22 10:45 05/28/22 11:11 Sodium Chloride 0.9% IV 05/29/22 10:44 30 mls/hr .Q24H SUJATA Administration PFSH Anesthesia Medical History Acute depression Acute on chronic anemia Alzheimer disease B12 deficiency Bradycardia Patient states her heart rate runs in 40s to 50s at home Breast cancer CHF (congestive heart failure) Chronic kidney disease Chronic respiratory failure with hypoxia and hypercapnia COPD (chronic obstructive pulmonary disease) COPD (chronic obstructive pulmonary disease) D-dimer, elevated DVT (deep venous thrombosis) GERD (gastroesophageal reflux disease) Hematoma Small complex fluid lesion adjacent to superficial thrombophlebitis in the left calf, 26 x 10 x 24 mm, History of deep venous thrombosis or pulmonary embolus HTN (hypertension) Hyperlipidemia IBS (irritable bowel syndrome) Leg swelling 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, N0, M0, G1 Muscle spasm Obstructive sleep apnea Presence of IVC filter Pulmonary emboli Rheumatoid arthritis Seasonal allergic rhinitis Superficial thrombophlebitis Tachycardia Varicose veins of left leg with edema Surgical History H/O neck surgery H/O shoulder surgery H/O wrist surgery H/O: knee surgery History of back surgery History of cholecystectomy History of ear surgery History of hysterectomy History of lumpectomy of right breast Family History Father CAD (coronary artery disease) Cancer Mother CAD (coronary artery disease) Brother CAD (coronary artery disease) Sister Cancer Other Diabetes Hyperlipidemia Hypertension Lung disease Psychiatric illness Denies family history of Clotting disorder Dementia Chronic kidney disease (CKD) Suicide Anesthesia complication Bleeding disorder Stroke Social History Smoking and tobacco status: former smoker (smoked x 57 years) Quit status (tobacco): has quit using tobacco Year quit tobacco: 1995 - 1PPD x 40 Years Alcohol intake: never Lives independently: Yes Household members: spouse Marital status: Current occupational status: retired History of recent travel: No Current gender identity: Female Data Anesthesia : 05/28/22 11:07 Short CBC 05/28/22 Range/Units 11:07 WBC 4.9 (4.0-10.0) 10^3/uL Hgb 10.3 L (11.5-15.3) g/dL Hct 35.6 L (37.0-47.0) % MCV 101.4 H (81-99) fl Plt Count 268 (130-400) 10^3/cmm Neut % (Auto) 58.9 % Neut # (Auto) 2.91 (1.8-7.7) 10^3/uL Coags 05/28/22 11:07 PT 12.30 INR 0.88 Cardiac Studies: Echocardiogram 03/08/22 Echocardiogram Limited Views 06/04/20 Echocardiogram Ultrasound 08/09/20 Sestamibi Stress Test (Cardiology) 03/21/20
--- NOTE | 2022-05-28 12:12 | W.PM.OPSUD ---
Surgery/Procedure H&P Update DATE OF PROCEDURE: May 28, 2022 DATE H&P PERFORMED: 05/24/02 CHANGES TO PREVIOUS DOCUMENTATION: Patient examined and evaluated, no obvious new changes since her recent exam and clinic PREOP DIAGNOSIS: Anemia PRIMARY INDICATION FOR PROCEDURE: Anemia to rule out myelodysplasia PLANNED PROCEDURE: Operation Date: 05/28/22 12:00 Proposed Procedures p Bone Marrow Biospy With Aspiration/anemia D64.9(Not Applicable) - Arabella Collins MD
--- NOTE | 2022-05-28 12:35 | P.PCN_ITS ---
Bone Marrow Biopsy Bone Marrow Biopsy: I was consulted by [] office regarding bone marrow biopsy on [Maddison Jenkins]. Briefly, the patient is a [76] year old female [] with [anemia]. In the Outpatient Services Department, with nursing staff and laboratory technologists in attendance, the procedure was discussed with the patient. Appropriate consent form had been signed. Appropriate alternatives, benefits and risks of procedure were discussed with the patient and she was pre- operatively assessed with a history and physical by myself and cleared for the biopsy procedure. The patient did request IV sedation and that was provided by the Anesthesia Department. Under aseptic conditions right posterior iliac area was cleaned and prepped, local anesthesia was given, about 15 cc of bone marrow aspirate and core biopsy was obtained, patient tolerated procedure well, specimen was sent for routine histopathology, flow cytometry, cytogenetic and FISH for MDS. Postprocedure nursing instructions were given Thank you for allowing me to participate in this patient's care and diagnosis. Coding Level of Care Code Acute Screw Machine Set Up Operator Tool for Chg Fwd History Problem Focused Exam Problem Focused Medical Decision Making Straight Forward
[2022-05-28 12:37] VITALS: BP 118/53; PULSE 61; RESP 16; TEMP 36.1; O2SAT 100
--- NOTE | 2022-05-28 12:41 | ANE.PACU2 ---
Inpatient post-anesthesia follow up: Airway intact: Yes Vital signs: Temperature 97.3 F Pulse Rate 57 Respiratory Rate 20 Blood Pressure 150/69 Pulse Oximetry 100 Oxygen Delivery Me thod Nasal Cannula Oxygen Flow Rate 2 Fraction of Inspir ed Oxygen Hydration adequate: Yes Nausea and vomiting: No Pain level: 1 Mental status: Baseline
[2022-05-28 12:50] VITALS: PULSE 57; RESP 16; O2SAT 100
[2022-05-30 09:09] LABS: Leukemia Profile (BBPL) See Report; Lymphoma Profile (BBPL) See Report
[2022-06-08 13:09] LABS: MDS Panel (BBPL) See Report
== END 2022-05-28 13:13 | disposition home or self-care (01) ==
PROVIDERS: PCP Family Medicine; Visit Provider Internal Medicine Hematology & Oncology
PROC: 07DT3ZX Extraction of Bone Marrow, Percutaneous Approach, Diagnostic (ICD-10-PCS; CPT 38222; principal; 2022-05-28 12:00)
DX: D64.9 Anemia, unspecified (principal); Z87.891 Personal history of nicotine dependence; J44.9 Chronic obstructive pulmonary disease, unspecified; G47.30 Sleep apnea, unspecified; Z99.81 Dependence on supplemental oxygen; Z86.711 Personal history of pulmonary embolism; Z86.718 Personal history of other venous thrombosis and embolism; I48.91 Unspecified atrial fibrillation; I13.0 Hypertensive heart and chronic kidney disease with heart failure and stage 1 through stage 4 chronic kidney disease, or unspecified chronic kidney disease; N18.9 Chronic kidney disease, unspecified; I50.9 Heart failure, unspecified; I25.2 Old myocardial infarction; K21.9 Gastro-esophageal reflux disease without esophagitis; E78.5 Hyperlipidemia, unspecified; Z79.82 Long term (current) use of aspirin; Z85.3 Personal history of malignant neoplasm of breast
CPT/HCPCS: 36415; 38222; 85025; 85610; 88184; 88185; 88237; 88264; 88305; 88311; 88367; 88374; J2704; J7030

== ENCOUNTER 2022-06-05 07:56 | Oncology outpatient (recurring) (ONCR) | payer MEDICARE, SELFPAY ==
[2022-06-05 08:24] LABS: Basophils # 0.1 10^3/uL (0.0-0.1); Basophils % 1.5 %; Eosinophils # 0.3 10^3/uL (0.0-0.8); Hematocrit 35.3 % (37.0-47.0); Hemoglobin 10.1 g/dL (11.5-15.3); Lymphocytes # 0.7 10^3/uL (0.8-4.8); Lymphocytes % 14.1 %; Mean Corpuscular HGB Conc 28.6 g/dL (30.0-36.0); Mean Corpuscular Hemoglobin 28.9 pg (28.0-34.0); Mean Corpuscular Volume 101.1 fl (81-99); Mean Platelet Volume 8.9 fL (7.4-10.4); Monocytes # 0.7 10^3/uL (0.2-0.9); Neutrophils # 2.95 10^3/uL (1.8-7.7); Neutrophils % 63.2 %; Nucleated Red Blood Cells % 0 %; Platelet Count 219 10^3/cmm (130-400); Red Blood Count 3.49 10^6/uL (4.1-5.3); Red Cell Distribution Width 14.9 % (12.1-15.1); White Blood Count 4.7 10^3/uL (4.0-10.0)
[2022-06-05 08:47] LABS: Alanine Aminotransferase 12 U/L (0-33); Albumin Level 3.6 g/dL (3.5-5.2); Alkaline Phosphatase 73 U/L (35-105); Anion Gap 12.2 (5-19); Aspartate Amino Transferase 23 U/L (0-32); Blood Urea Nitrogen 32 mg/dL (8-23); Carbon Dioxide 36 mmol/L (22-29); Chloride 98 mmol/L (98-107); Ferritin 45 ng/mL (15-150); Globulin 2.6 g/dL (1.3-4.6); Glucose 105 mg/dL (65-115); Iron 290 ug/dL (37-145); Osmolality Calculated 301 mOsm/kg (285-295); Percent Saturation 81.9 % (20-50); Potassium 4.2 mmol/L (3.5-5.1); Sodium 142 mmol/L (136-145); Total Bilirubin 0.3 mg/dL (0.15-1.2); Total Iron Binding Capacity 354 mcg/dl; Total Protein 6.2 g/dL (6.6-8.7); Unsaturated Iron Binding 64 ug/dL (112-347)
[2022-06-05 09:07] LABS: Vitamin B12 < 2000 pg/mL (232-1245)
== END 2022-07-02 23:59 | disposition home or self-care (01) ==
PROVIDERS: PCP Family Medicine; Visit Provider Internal Medicine Hematology & Oncology
DX: D50.9 Iron deficiency anemia, unspecified (principal); C50.411 Malignant neoplasm of upper-outer quadrant of right female breast; Z86.711 Personal history of pulmonary embolism; Z86.718 Personal history of other venous thrombosis and embolism; Z79.01 Long term (current) use of anticoagulants; Z92.3 Personal history of irradiation; Z79.811 Long term (current) use of aromatase inhibitors
CPT/HCPCS: 36415; 80053; 82607; 82728; 83540; 83550; 85025; 99214

== ENCOUNTER 2022-07-03 13:30 | Oncology outpatient (recurring) (ONCR) | payer MEDICARE, SELFPAY ==
[2022-07-03 14:11] LABS: Basophils # 0.1 10^3/uL (0.0-0.1); Basophils % 1.1 %; Eosinophils # 0.2 10^3/uL (0.0-0.8); Hematocrit 35.6 % (37.0-47.0); Hemoglobin 10.4 g/dL (11.5-15.3); Lymphocytes # 0.8 10^3/uL (0.8-4.8); Lymphocytes % 17.8 %; Mean Corpuscular HGB Conc 29.2 g/dL (30.0-36.0); Mean Corpuscular Hemoglobin 28.7 pg (28.0-34.0); Mean Corpuscular Volume 98.1 fl (81-99); Mean Platelet Volume 9.1 fL (7.4-10.4); Monocytes # 0.8 10^3/uL (0.2-0.9); Monocytes % 18.2 %; Neutrophils # 2.63 10^3/uL (1.8-7.7); Neutrophils % 57.7 %; Nucleated Red Blood Cells % 0 %; Platelet Count 234 10^3/cmm (130-400); Red Blood Count 3.63 10^6/uL (4.1-5.3); Red Cell Distribution Width 14.1 % (12.1-15.1); White Blood Count 4.6 10^3/uL (4.0-10.0)
== END 2022-08-01 23:59 | disposition home or self-care (01) ==
PROVIDERS: PCP Family Medicine; Visit Provider Internal Medicine Hematology & Oncology
DX: D64.9 Anemia, unspecified (principal); Z86.711 Personal history of pulmonary embolism; Z86.718 Personal history of other venous thrombosis and embolism; Z79.01 Long term (current) use of anticoagulants; C50.811 Malignant neoplasm of overlapping sites of right female breast; Z17.1 Estrogen receptor negative status [ER-]; Z79.818 Long term (current) use of other agents affecting estrogen receptors and estrogen levels; Z79.899 Other long term (current) drug therapy
CPT/HCPCS: 36415; 85025; 99214

== ENCOUNTER → 2022-07-30 10:34 | Outpatient (BNVA) | payer MEDICARE, SELFPAY | PROVIDERS: PCP Family Medicine; Visit Provider Internal Medicine Cardiovascular Disease | DX: I13.0 Hypertensive heart and chronic kidney disease with heart failure and stage 1 through stage 4 chronic kidney disease, or unspecified chronic kidney disease (principal); N18.9 Chronic kidney disease, unspecified; I50.9 Heart failure, unspecified; Z87.891 Personal history of nicotine dependence | CPT/HCPCS: 99214 ==

== ENCOUNTER 2022-08-14 11:47 | Oncology outpatient (recurring) (ONCR) | payer MEDICARE, SELFPAY ==
[2022-08-14 12:23] LABS: Basophils # 0.1 10^3/uL (0.0-0.1); Basophils % 1.5 %; Eosinophils # 0.3 10^3/uL (0.0-0.8); Eosinophils % 6.2 %; Hematocrit 38.8 % (37.0-47.0); Hemoglobin 11.6 g/dL (11.5-15.3); Lymphocytes # 0.9 10^3/uL (0.8-4.8); Lymphocytes % 18.3 %; Mean Corpuscular HGB Conc 29.9 g/dL (30.0-36.0); Mean Corpuscular Hemoglobin 29.7 pg (28.0-34.0); Mean Corpuscular Volume 99.2 fl (81-99); Mean Platelet Volume 8.3 fL (7.4-10.4); Monocytes # 0.8 10^3/uL (0.2-0.9); Monocytes % 16.8 %; Neutrophils # 2.65 10^3/uL (1.8-7.7); Nucleated Red Blood Cells % 0 %; Platelet Count 229 10^3/cmm (130-400); Red Blood Count 3.91 10^6/uL (4.1-5.3); White Blood Count 4.7 10^3/uL (4.0-10.0)
[2022-08-14 12:40] LABS: Ferritin 36 ng/mL (15-150); Iron 170 ug/dL (37-145); Percent Saturation 46.3 % (20-50); Total Iron Binding Capacity 367 mcg/dl; Unsaturated Iron Binding 197 ug/dL (112-347)
== END 2022-09-01 23:59 | disposition home or self-care (01) ==
PROVIDERS: PCP Family Medicine; Visit Provider Internal Medicine Hematology & Oncology
DX: D64.9 Anemia, unspecified (principal); Z79.899 Other long term (current) drug therapy; Z86.711 Personal history of pulmonary embolism; Z86.718 Personal history of other venous thrombosis and embolism; Z79.01 Long term (current) use of anticoagulants; C50.811 Malignant neoplasm of overlapping sites of right female breast; Z17.1 Estrogen receptor negative status [ER-]; Z79.818 Long term (current) use of other agents affecting estrogen receptors and estrogen levels
CPT/HCPCS: 82728; 83540; 83550; 85025; 99214

== ENCOUNTER 2022-10-25 13:19 | Oncology outpatient (recurring) (ONCR) | payer OTHER, SELFPAY ==
[2022-10-25 13:53] LABS: Basophils % 0.3 %; Eosinophils # 0.2 10^3/uL (0.0-0.8); Eosinophils % 2.2 %; Hematocrit 36.3 % (37.0-47.0); Hemoglobin 10.9 g/dL (11.5-15.3); Lymphocytes # 0.5 10^3/uL (0.8-4.8); Lymphocytes % 7.1 %; Mean Corpuscular Hemoglobin 29.2 pg (28.0-34.0); Mean Corpuscular Volume 97.3 fl (81-99); Monocytes % 13.4 %; Neutrophils # 5.59 10^3/uL (1.8-7.7); Neutrophils % 76.7 %; Nucleated Red Blood Cells % 0 %; Platelet Count 244 10^3/cmm (130-400); Red Blood Count 3.73 10^6/uL (4.1-5.3); Red Cell Distribution Width 14.6 % (12.1-15.1); White Blood Count 7.3 10^3/uL (4.0-10.0)
[2022-10-25 15:03] LABS: Ferritin 25 ng/mL (15-150); Iron 63 ug/dL (37-145); Total Iron Binding Capacity 370 mcg/dl; Unsaturated Iron Binding 307 ug/dL (112-347)
== END 2022-10-30 23:59 | disposition home or self-care (01) ==
PROVIDERS: PCP Family Medicine; Visit Provider Internal Medicine Hematology & Oncology
DX: D50.0 Iron deficiency anemia secondary to blood loss (chronic); K92.2 Gastrointestinal hemorrhage, unspecified; Z79.899 Other long term (current) drug therapy; I26.99 Other pulmonary embolism without acute cor pulmonale; J43.9 Emphysema, unspecified; Z79.01 Long term (current) use of anticoagulants; C50.411 Malignant neoplasm of upper-outer quadrant of right female breast; Z17.0 Estrogen receptor positive status [ER+]; Z79.811 Long term (current) use of aromatase inhibitors
CPT/HCPCS: 36415; 82728; 83540; 83550; 85025

== ENCOUNTER 2022-12-04 12:51 | Outpatient (CLI) | payer MEDICARE, SELFPAY ==
--- NOTE | 2022-12-04 13:07 | MM_ITS ---
WS: [email or web address] BILATERAL 3D TOMOSYNTHESIS DIGITAL DIAGNOSTIC MAMMOGRAPHY WITH CAD CLINICAL INFORMATION: HX BREAST CA; ANNUAL HISTORY: History of RIGHT lumpectomy. COMPARISON: 11/30/2021 and 11/10/2020 TECHNIQUE: Bilateral CC, MLO, and ML views. FINDINGS: The breasts are composed of heterogeneous fibroglandular density, which can limit the detection of sm all underlying mass lesions. Prior lumpectomy upper outer RIGHT breast with parenchymal scarring and dystrophic calcifications. Parenchymal scarring is increased compared to previous. Mild diffuse trabe cular thickening with skin thickening compatible with treatment-related changes. Dystrophic calcifica tions outer LEFT breast. Vascular calcification. Stable small 7 mm ovoid nodule anterior LEFT breast previously evaluated and demonstrated by ultrasou nd to represent a breast cyst with ductal ectasia. No suspicious focal mass, asymmetry, calcifications, or architectural distortion. No evidence of jamey gnancy. MM/[place] [id number] IMPRESSION: BI-RADS: 2-Benign FOLLOW UP: 1 Year Follow-up Recommend return to annual diagnostic mammography.
== END 2022-12-04 12:52 | disposition home or self-care (01) ==
PROVIDERS: PCP Family Medicine; Visit Provider Internal Medicine Hematology & Oncology
DX: Z85.3 Personal history of malignant neoplasm of breast (principal)
CPT/HCPCS: 77062; G0279

== ENCOUNTER → 2022-12-13 11:00 | Outpatient (BNVA) | payer MEDICARE, SELFPAY | PROVIDERS: PCP Family Medicine; Visit Provider Specialist | DX: M19.012 Primary osteoarthritis, left shoulder (principal) | CPT/HCPCS: 73030; 99214 ==

== ENCOUNTER 2022-12-25 13:01 | Oncology outpatient (recurring) (ONCR) | payer MEDICARE, SELFPAY ==
[2022-12-25 13:58] LABS: Basophils # 0.1 10^3/uL (0.0-0.1); Basophils % 1.1 %; Eosinophils # 0.2 10^3/uL (0.0-0.8); Eosinophils % 4.3 %; Hematocrit 38.6 % (37.0-47.0); Hemoglobin 11.4 g/dL (11.5-15.3); Lymphocytes # 0.7 10^3/uL (0.8-4.8); Mean Corpuscular HGB Conc 29.5 g/dL (30.0-36.0); Mean Corpuscular Hemoglobin 29.2 pg (28.0-34.0); Mean Corpuscular Volume 98.7 fl (81-99); Mean Platelet Volume 8.9 fL (7.4-10.4); Monocytes # 0.7 10^3/uL (0.2-0.9); Monocytes % 13.1 %; Neutrophils # 3.85 10^3/uL (1.8-7.7); Neutrophils % 68.3 %; Nucleated Red Blood Cells % 0 %; Platelet Count 222 10^3/cmm (130-400); Red Blood Count 3.91 10^6/uL (4.1-5.3); Red Cell Distribution Width 13.9 % (12.1-15.1); White Blood Count 5.6 10^3/uL (4.0-10.0)
[2022-12-25 14:22] LABS: Ferritin 40 ng/mL (15-150); Iron 134 ug/dL (37-145); Percent Saturation 36.9 % (20-50); Total Iron Binding Capacity 363 mcg/dl; Unsaturated Iron Binding 229 ug/dL (112-347)
== END 2022-12-30 23:59 | disposition home or self-care (01) ==
PROVIDERS: PCP Family Medicine; Visit Provider Internal Medicine Hematology & Oncology
DX: D64.9 Anemia, unspecified (principal); Z79.899 Other long term (current) drug therapy; Z86.711 Personal history of pulmonary embolism; Z86.718 Personal history of other venous thrombosis and embolism; Z79.01 Long term (current) use of anticoagulants; C50.811 Malignant neoplasm of overlapping sites of right female breast; Z17.1 Estrogen receptor negative status [ER-]; Z79.818 Long term (current) use of other agents affecting estrogen receptors and estrogen levels
CPT/HCPCS: 36415; 82728; 83540; 83550; 85025; 99214

== ENCOUNTER → 2023-01-22 15:14 | Outpatient (BNVA) | payer MEDICARE, SELFPAY | PROVIDERS: PCP Family Medicine; Visit Provider Dermatology | DX: C44.311 Basal cell carcinoma of skin of nose (principal); L57.0 Actinic keratosis; M70.22 Olecranon bursitis, left elbow; L82.1 Other seborrheic keratosis; Z85.828 Personal history of other malignant neoplasm of skin; L57.8 Other skin changes due to chronic exposure to nonionizing radiation | CPT/HCPCS: 11102; 11103; 17000; 17003; 99213 ==

== ENCOUNTER 2023-01-31 11:45 | Outpatient (CLI) | payer MEDICARE, SELFPAY ==
--- NOTE | 2023-01-31 11:55 | MR_ITS ---
WS: [id number] MRI LEFT SHOULDER NONCONTRAST TECHNIQUE: Sagittal T2, coronal T1, T2 and proton density imaging. Axial gradient PDE imaging. CLINICAL INFORMATION: shoulder pain COMPARISON: None. FINDINGS: Evidence of prior postoperative changes distal rotator cuff repair. Susceptibility artifact in the humeral head Advanced degenerative arthritis AC joint with narrowing of the subacromial space. Subacromial spurrin g. Advanced degenerative arthritis glenohumeral articulation. Edema at the AC joint. Subacromial and subdeltoid fluid. Thinning of the distal supraspinatus. Partial-thickness high-grade intrasubstance tear in the supraspinatus with fluid signal. Distal tendo n appears intact. No tendon retraction. Intrasubstance tear just distal to the glenohumeral joint. Infraspinatus appears intact. Chronic thinning of the infraspinatus tendon. Tendinopathy in the infra spinatus distally. Normal teres minor. Chronic thinning of the subscapularis which appears intact distally. Biceps tendo n is intact within the bicipital groove. Intra-articular biceps tendon appears intact. Degenerative f raying of the glenoid labrum. Small joint effusion. MR/MR shoulder LT wo con* [id number] IMPRESSION: 1. Prior rotator cuff repair with humeral head anchors degrades some imaging. 2. Chronic thinning of the supraspinatus with partial high-grade intrasubstanc e tear at the level of the glenohumeral joint. No tendon retraction. 3. Chronic thinning of the infraspinatus with tendinopathy appears intact. 4. Subscapularis appears intact with chronic thinning. 5. Biceps tendon appears intact within the bicipital groove. Intra-articular b iceps tendon appears intact. 6. Advanced degenerative arthritis AC joint with downsloping of the acromion. Impingement on the distal supraspinatus with subacromial spurring. Fluid in sub acromial subdeltoid bursa.
== END 2023-01-31 11:46 | disposition home or self-care (01) ==
LOC: RAD 11:49
PROVIDERS: PCP Family Medicine; Visit Provider Specialist
DX: M75.112 Incomplete rotator cuff tear or rupture of left shoulder, not specified as traumatic (principal); M19.012 Primary osteoarthritis, left shoulder; M25.812 Other specified joint disorders, left shoulder
CPT/HCPCS: 73221

== ENCOUNTER → 2023-02-18 07:49 | Outpatient (BNVA) | payer MEDICARE, SELFPAY | PROVIDERS: PCP Family Medicine; Visit Provider Specialist | DX: M19.012 Primary osteoarthritis, left shoulder (principal); M67.912 Unspecified disorder of synovium and tendon, left shoulder; M25.812 Other specified joint disorders, left shoulder | CPT/HCPCS: 20610; 99213; J1100; J2795; J3301 ==

== ENCOUNTER 2023-02-28 13:20 | Oncology outpatient (recurring) (ONCR) | payer MEDICARE, SELFPAY | END 2023-03-01 23:59 | disposition home or self-care (01) | PROVIDERS: PCP Family Medicine; Visit Provider Internal Medicine Hematology & Oncology | DX: D64.9 Anemia, unspecified (principal); Z79.899 Other long term (current) drug therapy; Z86.711 Personal history of pulmonary embolism; Z86.718 Personal history of other venous thrombosis and embolism; Z79.01 Long term (current) use of anticoagulants; C50.811 Malignant neoplasm of overlapping sites of right female breast; Z17.1 Estrogen receptor negative status [ER-]; Z79.818 Long term (current) use of other agents affecting estrogen receptors and estrogen levels | CPT/HCPCS: 99214 ==

== ENCOUNTER → 2023-03-11 07:50 | Outpatient (BNVA) | payer MEDICARE, SELFPAY | PROVIDERS: PCP Family Medicine; Visit Provider Dermatology | DX: C44.311 Basal cell carcinoma of skin of nose (principal) | CPT/HCPCS: 17311; 99213 ==

== ENCOUNTER 2023-03-29 08:02 | Oncology outpatient (recurring) (ONCR) | payer MEDICARE, SELFPAY ==
[2023-03-14 12:07] VITALS: BP 145/69; PULSE 75; RESP 18; TEMP 37.2; O2SAT 90
[2023-03-14 12:30] LABS: Basophils # 0.1 10^3/uL (0.0-0.1); Basophils % 1.2 %; Eosinophils # 0.2 10^3/uL (0.0-0.8); Eosinophils % 4.7 %; Hematocrit 29.7 % (37.0-47.0); Hemoglobin 8.2 g/dL (11.5-15.3); Lymphocytes # 0.8 10^3/uL (0.8-4.8); Lymphocytes % 15.5 %; Mean Corpuscular HGB Conc 27.6 g/dL (30.0-36.0); Mean Corpuscular Hemoglobin 23.1 pg (28.0-34.0); Mean Corpuscular Volume 83.7 fl (81-99); Mean Platelet Volume 8.9 fL (7.4-10.4); Monocytes # 0.9 10^3/uL (0.2-0.9); Monocytes % 17.1 %; Neutrophils # 3.15 10^3/uL (1.8-7.7); Neutrophils % 61.1 %; Nucleated Red Blood Cells % 0 %; Platelet Count 249 10^3/cmm (130-400); Red Blood Count 3.55 10^6/uL (4.1-5.3); Red Cell Distribution Width 17.1 % (12.1-15.1); White Blood Count 5.2 10^3/uL (4.0-10.0)
[2023-03-14 12:56] LABS: Alanine Aminotransferase 8 U/L (0-33); Albumin Level 3.7 g/dL (3.5-5.2); Alkaline Phosphatase 73 U/L (35-105); Anion Gap 9.1 (5-19); Aspartate Amino Transferase 17 U/L (0-32); Blood Urea Nitrogen 14 mg/dL (8-23); Calcium 8.4 mg/dL (8.5-10.5); Carbon Dioxide 36 mmol/L (22-29); Chloride 99 mmol/L (98-107); Globulin 2.3 g/dL (1.3-4.6); Glucose 130 mg/dL (65-115); Osmolality Calculated 292 mOsm/kg (285-295); Potassium 4.1 mmol/L (3.5-5.1); Sodium 140 mmol/L (136-145); Total Bilirubin 0.4 mg/dL (0.15-1.2)
[2023-03-14 14:41] LABS: Ferritin 9 ng/mL (15-150); Iron 13 ug/dL (37-145); Percent Saturation 3.4 % (20-50); Total Iron Binding Capacity 377 mcg/dl; Unsaturated Iron Binding 364 ug/dL (112-347)
[2023-03-19 15:04] VITALS: BP 128/55; PULSE 60; RESP 18; TEMP 36.9; O2SAT 98
[2023-03-19] MEDS: iron sucrose 200 MG in sodium chloride 0.9% (100 ml) 100 ML 220 MG IV (15:13)
[2023-03-19 15:55] VITALS: BP 120/78; PULSE 84; RESP 18; TEMP 36.6; O2SAT 98
[2023-03-21 09:02] VITALS: BP 138/44; PULSE 76; RESP 16; TEMP 36.5; O2SAT 90
[2023-03-21] MEDS: sodium chloride 0.9% 250 ML 75 ML IV (09:20)
[2023-03-21] MEDS: iron sucrose 200 MG in sodium chloride 0.9% (100 ml) 100 ML 220 MG IV (09:21)
[2023-03-21] MEDS: denosumab 60 mg SDV SUBCUT (09:25)
[2023-03-21 10:07] VITALS: BP 136/60; PULSE 74; RESP 16; TEMP 37.1; O2SAT 99
[2023-03-25 14:30] VITALS: BP 135/56; PULSE 60; RESP 18; TEMP 35.6; O2SAT 96
[2023-03-25] MEDS: sodium chloride 0.9% 250 ML 50 ML IV (14:39)
[2023-03-25] MEDS: iron sucrose 200 MG in sodium chloride 0.9% (100 ml) 100 ML 220 MG IV (14:40)
[2023-03-25 15:50] VITALS: BP 145/57; PULSE 63; O2SAT 98
[2023-03-27 08:19] VITALS: BP 146/67; PULSE 67; RESP 18; TEMP 36.4; O2SAT 97
[2023-03-27] MEDS: iron sucrose 200 MG in sodium chloride 0.9% (100 ml) 100 ML 220 MG IV (08:55)
[2023-03-27 09:20] VITALS: BP 146/74; PULSE 74; RESP 18; TEMP 36.4; O2SAT 97
[2023-03-29 08:23] VITALS: BP 130/55; PULSE 84; RESP 16; TEMP 36.7; O2SAT 90
[2023-03-29] MEDS: sodium chloride 0.9% 250 ML 75 ML IV (08:36)
[2023-03-29] MEDS: iron sucrose 200 MG in sodium chloride 0.9% (100 ml) 100 ML 220 MG IV (08:36)
[2023-03-29 09:20] VITALS: BP 133/52; PULSE 58; RESP 16; TEMP 36.5; O2SAT 98
== END 2023-04-01 23:59 | disposition home or self-care (01) ==
PROVIDERS: PCP Family Medicine; Visit Provider Internal Medicine Hematology & Oncology
DX: C50.411 Malignant neoplasm of upper-outer quadrant of right female breast (principal)
CPT/HCPCS: 36415; 80053; 82728; 83540; 83550; 85025; 96365; 96372; 99214; J0897; J1756; J7050

== ENCOUNTER → 2023-04-01 13:18 | Outpatient (BNVA) | payer MEDICARE, SELFPAY | PROVIDERS: PCP Family Medicine; Visit Provider Internal Medicine Pulmonary Disease | DX: D50.9 Iron deficiency anemia, unspecified; J96.11 Chronic respiratory failure with hypoxia; J96.12 Chronic respiratory failure with hypercapnia; R07.9 Chest pain, unspecified; G47.33 Obstructive sleep apnea (adult) (pediatric); J43.9 Emphysema, unspecified; Z87.891 Personal history of nicotine dependence; Z95.828 Presence of other vascular implants and grafts; Z87.19 Personal history of other diseases of the digestive system; Z86.718 Personal history of other venous thrombosis and embolism; Z86.711 Personal history of pulmonary embolism; Z99.81 Dependence on supplemental oxygen | CPT/HCPCS: 36415; 85025; 99214 ==

== ENCOUNTER 2023-04-23 10:40 | Inpatient (IN) | payer MEDICARE, SELFPAY ==
[2023-04-23] VITALS (7 sets, daily range): BP systolic 116–127; BP diastolic 52–65; PULSE 56–70; RESP 16–18; TEMP 36.8–36.9; O2SAT 91–97; BMI 29.6
--- NOTE | 2023-04-23 10:47 | XR_ITS ---
WS: [id number] EXAMINATION: XR hip LT 2-3V wo/w pel* [id number] REASON FOR EXAM: fall/left hip pain/get 1 view pelvis too please COMPARISON: None available. ORDER DATE: 04/23/2023 10:57 AM TECHNIQUE: Frontal internal/external rotation views of the left hip were obtained. X-RAY FINDINGS: There are no fractures or dislocations. Spinal instrumentation from lumbar fusion noted. Bilateral sc lerotic SI joint change. Normal motion with internal/external rotation is present. Moderate articular degenerative changes. IMPRESSION: 1. No fractures or dislocations of the left hip. 2. Normal motion with internal/external rotation.
--- NOTE | 2023-04-23 10:48 | XR_ITS ---
WS: [email or web address] EXAMINATION: XR chest 1V portable [id number] REASON FOR EXAM: chest pain COMPARISON: 11/23/2021 ORDER DATE: 04/23/2023 10:57 AM TECHNIQUE: A single, portable frontal chest x-ray was obtained. X-RAY FINDINGS: No nodules, masses or effusions are seen. The heart is slightly enlarged. The pulmonary vascularity is not increased. No pneumonia or pneumothorax is seen. The aortic arch and descending thoracic aorta show minimal calcification and tortuosity. The patient's had an anterior cervical disc fusion and probably of posterior lumbar fusion Impression: Cardiomegaly and atherosclerosis. No significant change from prior study.
--- NOTE | 2023-04-23 10:49 | ECG_ITS ---
[facility] Test Date: 2023-04-23 Pat Name: Maddison Jenkins Department: Room: Gender: Female [employer] Clerk: : 1945 Requested By: Rebecca Hunter Order Number: [id number] John MD: Lacy Santos M.D. Measurements Intervals [place] Rate: 67 P: 68 CO: 173 QRS: 46 QRSD: 106 T: 64 QT: 428 QTc: 452 Interpretive Statements SINUS RHYTHM Compared to ECG 09/10/2021 18:34:41 Sinus bradycardia no longer present Electronically Signed On 04-24-2023 20:12:34 CDT by Lacy Santos M.D. [email or web address]
--- NOTE | 2023-04-23 10:50 | ED_ITS ---
I was an attending physician on duty in the emergency department at the time this patient was seen by the physicians call center assistant. I did not personally see or evaluate or examine this patient. This case was reviewed with me briefly cording to departmental policy because she was being admitted to the facility. Patient had a ground-level fall off of a retaining wall and has suffered a cl osed distal femoral fracture. This is proximal to a knee arthroplasty prosthesis in the same extremity. He is being admitted to the hospitalist service for orthopedic evaluation and treatment. This is her only service I provided was writing [place] and transfer orders per department policy. HPI - Fall General: Chief Complaint: Extremity Injury, Lower Stated Complaint: Fall/ Hip Pain Time Seen by Provider: 04/23/23 10:43 Source: patient and EMS Mode of arrival: EMS Limitations: no limitations History of Present Illness: Patient is a 77-year-old female with history of PE, hypertension, infiltrating ductal carcinoma breast cancer, COPD chronically on oxygen, bradycardia, and CHF who presents to the emergency department via EMS due to fall onset today. Approximately an hour and a half prior to arrival, patient fell off a retaining wall while working outside tending to her [place]. She states that she felt a cramp in her leg, causing her to fall and landing on her right shoulder and left hip/leg. She arrives via EMS with shortening and internal rotation of her left hip, stating she has never injured this hip before but has a history of bilateral knee replacements. She denies hitting her head or losing consciousness, but states it was an hour before she was found down. She complains of some acute on chronic neck pain. Denies back pain. Per EMS, she reported a 10/10 pain and was given morphine and Zofran in route. She now states her pain is a 3/10 but she can still feel the pain at rest. She denies any breathing difficulty, chest pain, abdominal pain, dizziness, palpitations, or any other injuries at this time. She does not have a history of recurrent falls. Patient is on Eliquis. complaint: fall Onset (ago): hour(s) Fall from: standing (On retaining wall) Fall witnessed: no Place fall occurred: home Loss of consciousness: None Prolonged down time: yes (1 hour) Symptoms prior to fall: other (Leg cramping) Location of injury - extremities: Left: thigh and Right: shoulder Severity: severe Severity scale (1-10): 10 Associated symptoms-after fall: Reports no associated symptoms and neck pain; Denies abdominal pain, chest pain, headache(s), hematuria or lightheadedness Review of Systems Eyes: Denies: change in vision, blurry vision, photophobia, eye discharge, floaters or seeing flashes ENMT: Denies: throat pain, odynophagia, ear or mastoid pain, ear discharge, nasal discharge, epistaxis or sinus pain Card: Denies: chest pain, palpitations, lightheadedness, syncope or pre-sync ope Resp: Denies: dyspnea or pain on inspiration GI: Denies: abdominal pain : Denies: flank pain or hematuria Musc: Reports: neck pain, joint pain (Left hip, right shoulder), limited range of motion and muscle cramps; Denies: back pain, extremity pain, extremity swelling, joint swelling or joint redness Neuro: Denies: headache(s), numbness in extremities, weakness in extremities, sensory changes or dizziness PFSH ED PFSH: Medical History Acute depression Acute on chronic anemia Alzheimer disease B12 deficiency Bradycardia Patient states her heart rate runs in 40s to 50s at home Breast cancer CHF (congestive heart failure) Chronic kidney disease Chronic respiratory failure with hypoxia and hypercapnia COPD (chronic obstructive pulmonary disease) COPD (chronic obstructive pulmonary disease) D-dimer, elevated DVT (deep venous thrombosis) GERD (gastroesophageal reflux disease) Hematoma Small complex fluid lesion adjacent to superficial thrombophlebitis in the left calf, 26 x 10 x 24 mm, History of deep venous thrombosis or pulmonary embolus History of nonmelanoma skin cancer HTN (hypertension) Hyperlipidemia IBS (irritable bowel syndrome) Iron deficiency anemia Leg swelling longterm (current) use of aromatase inhibitors 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, N0, M0, G1 Muscle spasm Obstructive sleep apnea Presence of IVC filter Pulmonary emboli Rheumatoid arthritis Seasonal allergic rhinitis Superficial thrombophlebitis Tachycardia Varicose veins of left leg with edema Surgical History H/O neck surgery H/O shoulder surgery H/O wrist surgery H/O: knee surgery History of back surgery History of cholecystectomy History of ear surgery History of hysterectomy History of lumpectomy of right breast Family History Father CAD (coronary artery disease) Cancer Mother CAD (coronary artery disease) Brother CAD (coronary artery disease) Sister Cancer Other Diabetes Hyperlipidemia Hypertension Lung disease Psychiatric illness Social History Smoking and tobacco status: former smoker Quit status (tobacco): has quit using tobacco Year quit tobacco: 1995 - PD x 40 Years Alcohol intake: never Substance/Drug Use: never Lives independently: Yes Household members: spouse Marital status: Current occupational status: retired Do you think of yourself as: Straight/Heterosexual Current gender identity: Female Physical Exam Const: COMMON NORMALS: no acute distress, patient oriented x3, no limitations, healthy appearing, alert and well nourished GENERAL APPEARANCE: cooperative ORIENTATION/CONSCIOUSNESS: Yes awake, Yes oriented to person, Yes oriented to place and Yes oriented to time HENMT: COMMON NORMALS: normocephalic, atraumatic and TM's normal bilaterally HEAD & SCALP: normal to inspection, normocephalic and atraumatic; no Acosta's sign, no hematoma and no raccoon eyes FACE & SINUS: normal facial exam TYMPANIC MEMBRANE: TM's normal bilaterally MOUTH: other (no intraoral injuries noted) Eye: COMMON NORMALS: Equal, round and reactive pupils present and EOMs intact bilaterally GENERAL EYE: appearance normal, both eyes and all related structures and normal light reflex PUPIL: Yes Equal, round and reactive pupils present DIRECT OPHTHALMOSCOPY: Yes normal light reflex Neck/C-Spine: COMMON NORMALS: full ROM GENERAL: Yes normal visual inspection CERVICAL SPINE: Yes cervical ROM normal, Yes pain with cervical ROM, Yes Cervical spine tenderness, No step off deformity and No Paracervical muscle tenderness Chest: COMMONS NORMALS: normal inspection of the chest and normal palpation of entire chest wall Resp: COMMON NORMALS: normal respiratory effort and clear to auscultation bilaterally AUSCULTATION: clear to auscultation bilaterally Cardio: COMMON NORMALS: regular rate and regular rhythm RATE: regular rate RHYTHM: regular rhythm GI: COMMON NORMALS: Normal to inspection, nondistended, normoactive bowel sounds present, Soft to palpation, non-tender, No hepatosplenomegaly present and no masses INSPECTION: Yes normal to inspection and No abdominal wall ecchymosis AUSCULTATION: Yes normoactive bowel sounds PALPATION: Yes Soft to palpation and Yes No hepatosplenomegaly present Back/Pelvis: COMMON NORMALS: thoracic and lumbar spine normal to inspection, no thoracic nor lumbar tenderness and thoraco-lumbar ROM normal Extremity: GENERAL: Yes normal exam except as noted RIGHT UPPER EXTREMITY: Yes shoulder joint Right shoulder: Yes Right shoulder joint inspection exam (no bony abnormalities noted), Yes Right shoulder joint ROM exam (normal) and Yes Right shoulder joint neurovascular exam (normal) LEFT LOWER EXTREMITY: Yes hip joint (L LE is shortened/rotated) Left hip: Yes ROM (no ROM could be tested secondary to pain/deformity) and Yes neurovascular exam (normal), Yes knee joint (TTP-no ROM secondary to pain; thigh swelling) and Yes ankle joint (TTP w/o swelling/deformity noted) Left ankle: Yes neurovascular exam (normal) OTHER: pain reported throughout L LE; no ROM of left hip/knee secondary to pain; edema noted to L thigh; patient maintains good pulses, cap refill, and sensation Neuro: MILLICENT COMA SCALE: document GCS findings Millicent coma scale eye opening: Spontaneous Millicent coma scale verbal response: Orientated Millicent coma scale motor response: Obey commands Millicent coma scale total score: 15 COMMON NORMALS: patient oriented x3, moves all extremities, no focal motor deficits and no sensory deficits noted SENSORIUM/ORIENTATION: Yes alert, Yes oriented to person, Yes oriented to place and Yes oriented to time SPEECH: speech normal GAIT: Yes Unable to assess gait Skin: COMMON NORMALS: no rashes or lesions noted GENERAL SKIN EXAM: no rashes or lesions noted TRAUMA: no lacerations or abrasions Course Consultations: Consultation #1: Dr. Joyner-recommends knee immobilizer, admit to hospitalist and she will consult Consultation #2: Dr. Kyle-accepts admission Vital Signs: Vital signs: Vital Signs Temperature 98.2 F 04/23/23 10:45 Pulse Rate 70 04/23/23 10:45 Respiratory Rate 16 04/23/23 10:45 Blood Pressure 116/52 04/23/23 10:45 Pulse Oximetry 91 04/23/23 10:45 Oxygen Flow Rate 2 04/23/23 10:45 MDM - Fall Medical Decision Making Patient is a nice 77-year-old female who presents to ED today following a fall. She states she had a cramp in her leg causing her to fall although later tells m e she believes she tripped and fell. She denies lightheadedness, dizziness, chest pain, shortness of breath or palpitations prior to the fall. Her main complaint is left leg and hip pain as well as right shoulder pain. She denies striking her head or LOC. CTs of her head and cervical spine are negative. X- rays reveal a nondisplaced greater tuberosity fracture of the right shoulder as well as a significant supracondylar femoral fracture. Patient does have a history of bilateral knee prostheses. Radiologist states that fracture line does not seem to disrupt the prosthesis components. Dr. Joyner did review patient's x-rays and feels that she can be admitted here and requests admission to hospitalist. Patient's vital signs are stable. Her extremity is neurovascularly intact. Blood work showing chronic anemia but no other significant abnormalities. RN is currently placing Teresa. Patient has significant comorbidities including CHF. Last echocardiogram was performed 03/2022 showing a normal EF of 55 to 60. I spoke to Dr. Kyle who will accept patient. Dr. Arriola is aware of patient and agrees with care plan at this time. Lab Data 04/23/23 10:50 04/23/23 10:50 Laboratory Results WBC 5.6 10^3/uL (4.0-10.0) 04/23/23 10:50 RBC 3.50 10^6/uL (4.1-5.3) L 04/23/23 10:50 Hgb 8.6 g/dL (11.5-15.3) L 04/23/23 10:50 Hct 30.9 % (37.0-47.0) L 04/23/23 10:50 MCV 88.3 fl (81-99) 04/23/23 10:50 MCH 24.6 pg (28.0-34.0) L 04/23/23 10:50 MCHC 27.8 g/dL (30.0-36.0) L 04/23/23 10:50 RDW 21.7 % (12.1-15.1) H 04/23/23 10:50 Plt Count 255 10^3/cmm (130-400) 04/23/23 10:50 MPV 9.0 fL (7.4-10.4) 04/23/23 10:50 Neut % (Auto) 58.9 % 04/23/23 10:50 Lymph % (Auto) 20.5 % 04/23/23 10:50 [place] % (Auto) 15.3 % 04/23/23 10:50 Eos % (Auto) 3.7 % 04/23/23 10:50 Baso % (Auto) 1.2 % 04/23/23 10:50 Neut # (Auto) 3.30 10^3/uL (1.8-7.7) 04/23/23 10:50 Lymph # (Auto) 1.2 10^3/uL (0.8-4.8) 04/23/23 10:50 [place] # (Auto) 0.9 10^3/uL (0.2-0.9) 04/23/23 10:50 Eos # (Auto) 0.2 10^3/uL (0.0-0.8) 04/23/23 10:50 Baso # (Auto) 0.1 10^3/uL (0.0-0.1) 04/23/23 10:50 Nucleated RBC % (auto) 0 % 04/23/23 10:50 Nucleated RBCs # 0.0 /100WBC 04/23/23 10:50 Sodium 141 mmol/L (136-145) 04/23/23 10:50 Potassium 4.4 mmol/L (3.5-5.1) 04/23/23 10:50 Chloride 100 mmol/L (98-107) 04/23/23 10:50 Carbon Dioxide 34 mmol/L (22-29) H 04/23/23 10:50 Anion Gap 11.4 (5-19) 04/23/23 10:50 BUN 23 mg/dL (8-23) 04/23/23 10:50 Creatinine 0.8 mg/dL (0.5-0.9) 04/23/23 10:50 GFR Calculation Not Reportable 04/23/23 10:50 Glucose 100 mg/dL (65-115) 04/23/23 10:50 Calculated Osmolality 296 mOsm/kg (285-295) H 04/23/23 10:50 Calcium 8.5 mg/dL (8.5-10.5) 04/23/23 10:50 Total Bilirubin 0.5 mg/dL (0.15-1.2) 04/23/23 10:50 AST 24 U/L (0-32) 04/23/23 10:50 ALT 10 U/L (0-33) 04/23/23 10:50 Alkaline Phosphatase 77 U/L (35-105) 04/23/23 10:50 Creatine Kinase 162 U/L (26-192) 04/23/23 10:50 Total Protein 6.0 g/dL (6.6-8.7) L 04/23/23 10:50 Albumin 3.9 g/dL (3.5-5.2) 04/23/23 10:50 Globulin 2.1 g/dL (1.3-4.6) 04/23/23 10:50 Discharge Plan Discharge Patient Disposition: Admitted As Inpatient Clinical Impression: Chronic anemia Supracondylar fracture of left femur Qualifiers: Encounter type: initial encounter Fracture type: closed Qualified Code(s): S72.452A - Displaced supracondylar fracture without intracondylar extension of lower end of left femur, initial encounter for closed fracture Closed fracture of greater tuberosity of humerus Qualifiers: Encounter type: initial encounter Fracture alignment: nondisplaced Laterality: right Qualified Code(s): S42.254A - Nondisplaced fracture of greater tuberosity of right humerus, initial encounter for closed fracture Condition: Stable Coding Level of Care Code ED Belt Tender for Gus Monaco
--- NOTE | 2023-04-23 10:56 | XR_ITS ---
WS: [email or web address] EXAMINATION: XR shoulder RT min 2V* [id number] REASON FOR EXAM: pain/trauma COMPARISON: None available. ORDER DATE: 04/23/2023 10:57 AM TECHNIQUE: 3 views of the right shoulder were obtained. X-RAY FINDINGS: There is a subtle comminuted fracture involving the greater tuberosity of the humerus Normal motion of the shoulder with internal/external rotation. Mild diffuse degenerative changes involving the glenohumeral and acromioclavicular joints. Limited visualization of the adjacent hemithorax is unremarkable. IMPRESSION: Subtle greater tuberosity fracture of the right shoulder with diffuse osteoarthritic changes.
[2023-04-23 11:03] LABS: Basophils # 0.1 10^3/uL (0.0-0.1); Basophils % 1.2 %; Eosinophils # 0.2 10^3/uL (0.0-0.8); Eosinophils % 3.7 %; Hematocrit 30.9 % (37.0-47.0); Hemoglobin 8.6 g/dL (11.5-15.3); Lymphocytes # 1.2 10^3/uL (0.8-4.8); Lymphocytes % 20.5 %; Mean Corpuscular HGB Conc 27.8 g/dL (30.0-36.0); Mean Corpuscular Hemoglobin 24.6 pg (28.0-34.0); Mean Corpuscular Volume 88.3 fl (81-99); Monocytes # 0.9 10^3/uL (0.2-0.9); Monocytes % 15.3 %; Neutrophils % 58.9 %; Nucleated Red Blood Cells % 0 %; Platelet Count 255 10^3/cmm (130-400); Red Cell Distribution Width 21.7 % (12.1-15.1); White Blood Count 5.6 10^3/uL (4.0-10.0)
--- NOTE | 2023-04-23 11:04 | XR_ITS ---
WS: [email or web address] EXAMINATION: XR knee LT 3V* [id number] REASON FOR EXAM: fall/knee pain COMPARISON: 04-11 ORDER DATE: 04/23/2023 11:04 AM FINDINGS/IMPRESSION: There is an acute supracondylar comminuted fracture composed of several fracture lines coursing from medial to lateral is the fracture extends distally in is widely diastatic with extensive soft tissue edema. There is a total knee prosthesis in place. Joint effusion suggested. There does not appear to be any disruption of the prosthesis components.
--- NOTE | 2023-04-23 11:04 | XR_ITS ---
WS: [email or web address] EXAMINATION: XR ankle LT min 3V* [id number] REASON FOR EXAM: fall/ankle pain COMPARISON: None available. ORDER DATE: 04/23/2023 11:04 AM FINDINGS: There is generalized joint space narrowing at the ankle mortise. This indicates degenerative joint an d-or chondral changes. Juxta articular marginal osteophytes are present. There are no acute fracture s or dislocations. IMPRESSION: DIFFUSE OSTEOARTHRITIS. POSSIBILITY OF LIGAMENT STRAIN or tear with circumferential edema.
--- NOTE | 2023-04-23 11:05 | CT_ITS ---
WS: [email or web address] CT CERVICAL TRAUMA TECHNIQUE: Noncontrast CT of the cervical spine with coronal and sagittal reformatted images. CLINICAL INFORMATION: fall/neck pain COMPARISON: None. DLP: 1403.[address] scans at [facility] use at least one of these dose optimization techniques: automated e xposure control; mA and/or kV adjustment per patient size (includes targeted exams where dose is matc hed to clinical indication); or iterative reconstruction. FINDINGS: Straightening of the normal cervical lordosis. Prior extensive postoperative changes anterior cervica l fusion C3-C7. Osteopenia. Slight anterolisthesis C7 on T1. Hardware appears intact. Normal C1 ring. Moderate spondylitic changes cervical spine. Emphysematous changes in the lung apices. Normal prevertebral soft tissues. Mastoids air cells are well aerated. IMPRESSION: No evidence of acute fracture or dislocation.
--- NOTE | 2023-04-23 11:06 | CT_ITS ---
WS: [email or web address] CT HEAD TECHNIQUE: Noncontrast CT of the head obtained from the skullbase to the vertex. CLINICAL INFORMATION: fall/trauma COMPARISON: 2019 DLP: 1403.[address] scans at [facility] use at least one of these dose optimization techniques: automated e xposure control; mA and/or kV adjustment per patient size (includes targeted exams where dose is matc hed to clinical indication); or iterative reconstruction. FINDINGS: No evidence of intracranial hemorrhage or mass effect. Ventricular system and basal cisterns are hermosillo nt. Moderate small vessel changes with mild parenchymal volume loss. No extra-axial fluid collections . No evidence of mass or mass effect. Paranasal sinuses and mastoid air cells are well aerated. .Normal visualized soft tissues. IMPRESSION: 1. No evidence of intracranial hemorrhage or mass effect. 2. No acute intracranial findings.
--- NOTE | 2023-04-23 11:18 | XR_ITS ---
WS: [email or web address] EXAMINATION: XR femur LT min 2V* [id number] REASON FOR EXAM: trauma COMPARISON: Recent other imaging ORDER DATE: 04/23/2023 11:18 AM FINDINGS/IMPRESSION: There is an acute supracondylar comminuted fracture composed of several fracture lines coursing from medial to lateral. As the fracture extends distally the diastases decreases somewhat with extensive s oft tissue edema. There is a total knee prosthesis in place. Joint effusion suggested. There does not appear to be any disruption of the prosthesis components.
[2023-04-23 11:21] LABS: Alanine Aminotransferase 10 U/L (0-33); Albumin Level 3.9 g/dL (3.5-5.2); Alkaline Phosphatase 77 U/L (35-105); Anion Gap 11.4 (5-19); Aspartate Amino Transferase 24 U/L (0-32); Blood Urea Nitrogen 23 mg/dL (8-23); Calcium 8.5 mg/dL (8.5-10.5); Carbon Dioxide 34 mmol/L (22-29); Chloride 100 mmol/L (98-107); Creatine Phosphokinase 162 U/L (26-192); Creatinine Clr Calc Pharmacy 55.2725; Globulin 2.1 g/dL (1.3-4.6); Glucose 100 mg/dL (65-115); Osmolality Calculated 296 mOsm/kg (285-295); Potassium 4.4 mmol/L (3.5-5.1); Sodium 141 mmol/L (136-145); Total Bilirubin 0.5 mg/dL (0.15-1.2)
[2023-04-23] MEDS: sodium chloride 0.9% 1,000 ML 125 ML IV (12:49)
[2023-04-23] MEDS: fentaNYL 50 mcg/mL INJ 2mL IVP (12:49)
--- NOTE | 2023-04-23 13:08 | PC.NURSE ---
Pt unable to tolerate knee immobilizer application at this time. Provider notified.
[2023-04-23 13:20] LABS: Add Urine Microscopic? YES; Bilirubin Urine Neg (Negative); Blood Urine 3+ (Negative); Glucose Urine UA Norm (Normal); Ketones Urine Negative (Negative); Leukocyte Esterase Urine Negative (Negative); Nitrate Urine Negative (Negative); Protein Urine Neg (Negative); Sulfosalicylic Acid Urine Negative (Negative); Urine Appearance SL Hazy (CLEAR); Urine Color Yellow (Yellow); Urobilinogen Urine Norm (Negative); pH Urine 9 (5-7)
[2023-04-23 13:21] LABS: RBC Urine >100 /hpf (0-2)
[2023-04-23 13:22] LABS: Add Urine Culture? Yes; Squamous Epithelial Cell Urine 0-4 /hpf (0-5); WBC Urine 0-4 /hpf (0-5)
--- NOTE | 2023-04-23 14:07 | ECG_ITS ---
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 Measurements Intervals [place] Rate: 64 P: 70 DC: 159 QRS: 57 QRSD: 106 T: 66 QT: 463 QTc: 481 Interpretive Statements SINUS RHYTHM PROLONGED QT INTERVAL Compared to ECG 04/23/2023 11:05:23 Prolonged QT interval now present Electronically Signed On 04-24-2023 19:58:26 CDT by Lacy Santos M.D. [email or web address] Technologymerit health river oaksSeed [employer], [employer].[employer]/store/OM/[id number]
--- NOTE | 2023-04-23 14:07 | US_ITS ---
WS: [id number] ULTRASOUND RENAL TECHNIQUE: Ultrasound examination of both kidneys. CLINICAL INFORMATION: hematuria COMPARISON: Ultrasound 11/01/2022 FINDINGS: Limited exam due to bowel gas RIGHT: Right kidney is normal in size and appearance. Echogenicity: Increased cortical thickness: 0.5 cm Hydronephrosis: None. Perinephric fluid: None. Right kidney measures: 10.8 cm x 4.1 cm x 3.4 cm. LEFT: Left kidney is normal in size and appearance. Echogenicity: Increased cortical thickness: 0.9 cm Hydronephrosis: None. Perinephric fluid: None. Left kidney measures: 10.1 cm x 4.4 cm x 4.0 cm. Normal visualized aorta. Teresa catheter. IMPRESSION: 1. No hydronephrosis in either kidney. 2. Mild renal cortical atrophy with increased echogenicity compatible with medical renal disease. 3. Teresa catheter.
--- NOTE | 2023-04-23 14:10 | P.HP_ITS ---
Providers/Chief Complaint Primary Care Provider: Zhang Gamboa MD Chief Complaint: Fall/ Hip Pain History of Present Illness Maddison Jenkins is a 77 year old female COPD, history of pulmonary embolism, history of DVT, history of IVC filter, on chronic Eliquis therapy 2.5 mg daily, last took last night, obstructive sleep apnea, chronic hypoxic respiratory failure, history of GI bleed, history of EGDs and colonoscopies in the past without any significant findings, she was supposed to be set up for iron infusions through Dr. Collins's office however he has left so she was not able to get him, who presents to [facility] for follow-up, patient tells me that this morning she was checking up on her roses, if she was leaning up against a cement wall when she lost her balance, and fell, denies any lightheadedness, no dizziness, no presyncope, no syncope, no chest pain, no palpitations, no recent bloody or black stools, she was found to have a left femur fracture, also found to have a right shoulder fracture, she currently is pain-free, on 3 L, orthopedic service has been called for surgery, hospitalist team was called for medical management, currently blood pressure 116/52, pulse 70, respiratory rate 16, temperature 98.2, O2 sats 91 on 3 L Review of Systems Const: Denies: fever(s) or chills Eyes: Denies: change in vision Card: Denies: chest pain, palpitations, edema, lightheadedness, syncope, pre- syncope or dyspnea on exertion Resp: Denies: dyspnea or non-productive cough GI: Denies: abdominal pain, nausea, vomiting, hematemesis, coffee ground emesis, hematochezia or melena : Denies: flank pain Musc: Denies: neck pain or back pain Skin/Breast: Denies: rash Neuro: Denies: headache(s) Psych: Denies: anxiety Endo: Denies: polyuria Medications/Allergies Home Medications Medication Instructions Recorded Confirmed Last Taken Type citalopram 20 mg tablet 20 mg PO DAILY 09/09/19 04/23/23 04/23/23 History donepezil 10 mg tablet 10 mg PO DAILY 09/09/19 04/23/23 04/23/23 History ferrous sulfate 324 mg (65 mg 324 mg PO DAILY 09/09/19 04/23/23 04/23/23 History iron) tablet,delayed release gabapentin 300 mg capsule See Rx Instructions .Route .COMPLEX 09/09/19 04/23/23 04/23/23 History aspirin 81 mg tablet,delayed 81 mg PO DAILY 12/10/19 04/23/23 04/23/23 History release (Adult Aspirin Regimen) magnesium oxide 500 mg capsule 500 mg PO DAILY 12/10/19 04/23/23 04/23/23 History mecobalamin (vitamin B12) 1,000 1,000 mcg PO DAILY 12/10/19 04/23/23 04/23/23 History mcg chewable tablet tramadol 50 mg tablet 50 mg PO TID PRN Pain 04/07/21 04/23/23 09/18/21 History Power step arch support #2 ea 05/04/21 04/23/23 09/18/21 Rx tizanidine 4 mg capsule 4 mg PO QID PRN muscle spasms 01/04/22 04/23/23 Unknown History fluticasone propionate 50 1 spray intranasal BID 01/26/22 04/23/23 04/23/23 History mcg/actuation nasal spray,suspension nitroglycerin 0.4 mg sublingual 0.4 mg sublingual Q5M PRN Chest 05/22/22 04/23/23 Unknown Rx tablet Pain #25 tabs potassium chloride 20 mEq 20 meq PO BID #180 tabs 05/22/22 04/23/23 04/23/23 Rx tablet,extended release(part/cryst) (Klor-Con M) rosuvastatin 10 mg tablet (Crestor) 10 mg PO DAILY #90 tabs 05/22/22 04/23/23 04/23/23 Rx apixaban 2.5 mg tablet (Eliquis) 2.5 mg PO DAILY 07/30/22 04/23/23 04/23/23 History bumetanide 1 mg tablet 1 mg PO DAILY 07/30/22 04/23/23 04/23/23 History cholecalciferol (vitamin D3) 25 25 mcg PO DAILY 07/30/22 04/23/23 04/23/23 History mcg (1,000 unit) capsule diphenhydramine HCl 25 mg tablet 25 mg PO TID PRN Allergic Symptoms 07/30/22 04/23/23 04/23/23 History (Benadryl Allergy) ketoconazole 2 % shampoo 1 applic topical .2 x weekly #120 09/06/22 04/23/23 Unknown Rx mL mupirocin 2 % topical ointment 1 applic topical BID #15 grams 09/24/22 04/23/23 Unknown Rx ascorbic acid (vitamin C) 500 mg 500 mg PO DAILY #90 caps 09/25/22 04/23/23 04/23/23 Rx capsule anastrozole 1 mg tablet 1 mg PO DAILY #90 tabs 11/26/22 04/23/23 04/23/23 Rx ipratropium 0.5 mg-albuterol 3 mg 3 ml inhalation Q6H PRN wheezing 04/02/23 04/23/23 Unknown Rx (2.5 mg base)/3 mL nebulization #180 mL soln betamethasone dipropionate 0.05 % 1 applic topical BID PRN Rash 04/23/2304/23 Unknown History topical cream hydrocortisone 2.5 % topical cream See Rx Instructions .Route .COMPLEX 04/23/23 04/23/23 Unknown History triamcinolone acetonide 0.1 % See Rx Instructions .Route .COMPLEX 04/23/23 04/23/23 Unknown History topical cream Allergies Allergy/AdvReac Type Severity Reaction Status Date / Time No Known Allergies Allergy Verified 04/01/23 13:25 PFSH Acute PFSH: Medical History (Updated 04/23/23 @ 14:39 by Herman Kyle MD) Acute depression Acute on chronic anemia Alzheimer disease B12 deficiency Bradycardia Patient states her heart rate runs in 40s to 50s at home Breast cancer CHF (congestive heart failure) Chronic kidney disease Chronic respiratory failure with hypoxia and hypercapnia COPD (chronic obstructive pulmonary disease) COPD (chronic obstructive pulmonary disease) D-dimer, elevated DVT (deep venous thrombosis) GERD (gastroesophageal reflux disease) Hematoma Small complex fluid lesion adjacent to superficial thrombophlebitis in the left calf, 26 x 10 x 24 mm, History of deep venous thrombosis or pulmonary embolus History of nonmelanoma skin cancer HTN (hypertension) Hyperlipidemia IBS (irritable bowel syndrome) Iron deficiency anemia 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, N0, M0, G1 Muscle spasm Obstructive sleep apnea Presence of IVC filter Pulmonary emboli Rheumatoid arthritis Seasonal allergic rhinitis Superficial thrombophlebitis Tachycardia Varicose veins of left leg with edema Surgical History H/O neck surgery H/O shoulder surgery H/O wrist surgery H/O: knee surgery History of back surgery History of cholecystectomy History of ear surgery History of hysterectomy History of lumpectomy of right breast Family History Father CAD (coronary artery disease) Cancer Mother CAD (coronary artery disease) Brother CAD (coronary artery disease) Sister Cancer Other Diabetes Hyperlipidemia Hypertension Lung disease Psychiatric illness Social History Smoking and tobacco status: former smoker Quit status (tobacco): has quit using tobacco Year quit tobacco: 1995 - 1PPD x 40 Years Alcohol intake: never Substance/Drug Use: never Lives independently: Yes Household members: spouse Marital status: Current occupational status: retired Do you think of yourself as: Straight/Heterosexual Current gender identity: Female Vitals/I&O/Wt Last Vital Signs Temp 98.2 F 04/23/23 10:45 Pulse 70 04/23/23 10:45 Resp 16 04/23/23 10:45 BP 116/52 04/23/23 10:45 Pulse Ox 91 04/23/23 10:45 O2 Flow Rate 2 04/23/23 10:45 Weight last 48 hrs Weight 73.482 kg Physical Exam Const: COMMON NORMALS: no acute distress and patient oriented x3 GENERAL APPEARANCE: cooperative, well kempt and well developed HENMT: COMMON NORMALS: normocephalic and Normal external nose present HEAD & SCALP: normocephalic FACE & SINUS: normal facial exam NOSE: Normal external nose present Eye: COMMON NORMALS: Equal, round and reactive pupils present, EOMs intact bilaterally and conjunctivae normal CONJUNCTIVA: Yes conjunctivae normal Neck/C-Spine: COMMON NORMALS: full ROM, no lymphadenopathy, no JVD, Thyroid normal and No carotid bruits THYROID: Thyroid normal Lymph: LYMPHATIC: no lymphadenopathy noted Chest: COMMONS NORMALS: normal inspection of the chest Resp: COMMON NORMALS: normal respiratory effort, No retractions, No use of accessory muscles and clear to auscultation bilaterally AUSCULTATION: clear to auscultation bilaterally Cardio: COMMON NORMALS: regular rate, regular rhythm, S1 normal heart sound present, S2 normal heart sound present, No murmurs present (Cardio) and Peripheral pulses 2+ throughout RATE: regular rate RHYTHM: regular rhythm HEART SOUNDS: S1 normal heart sound present and S2 normal heart sound present PERIPHERAL PULSES: Peripheral pulses 2+ throughout GI: COMMON NORMALS: Normal to inspection, nondistended, normoactive bowel sounds present, Soft to palpation and non-tender : BLADDER/KIDNEY EXAM: Yes no CVA tenderness Back/Pelvis: COMMON NORMALS: no CVA tenderness Extremity: COMMON NORMALS: full ROM NARRATIVE EXTREMITY EXAM: 1+ nonpitting edema Neuro: COMMON NORMALS: patient oriented x3, CN's II-XII intact bilaterally and moves all extremities MENINGEAL SIGNS: Yes no meningeal signs Skin: COMMON NORMALS: turgor normal and no jaundice GENERAL SKIN EXAM: turgor normal Urinary Catheter Management: Teresa Latex Free: Cath Placed During This Visit: yes Urinary Catheter Date of Insertion: 04/23/23 Urinary Catheter Time of Insertion: 13:06 Data 04/23/23 10:50 04/23/23 10:50 A&P Assessment and plan (1) Supracondylar fracture of left femur: Qualifiers: Encounter type: initial encounter Fracture type: closed Qualified Code(s): S72.452A - Displaced supracondylar fracture without intracondylar extension of lower end of left femur, initial encounter for closed fracture (2) Closed fracture of greater tuberosity of humerus: Qualifiers: Encounter type: initial encounter Fracture alignment: nondisplaced Laterality: right Qualified Code(s): S42.254A - Nondisplaced fracture of greater tuberosity of right humerus, initial encounter for closed fracture (3) Chronic anemia: (4) Iron deficiency anemia: (5) CHF (congestive heart failure): (6) GI bleed: Qualifiers: GI bleed type/associated pathology: unspecified gastrointestinal hemorrhage type Qualified Code(s): K92.2 - Gastrointestinal hemorrhage, unspecified (7) History of deep venous thrombosis or pulmonary embolus: (8) Malignant neoplasm of upper-outer quadrant of right female breast: (9) Fluid overload: (10) COPD (chronic obstructive pulmonary disease): Plan Left femur fracture plan -last dose of eliquis was last night -pain control and anticoagulation as per orthopedics -history of dvt and pe, saddle pe, iv filter in place, on prophylactic eliquis 2 .5mg qD -npo -dr. kapadia consulted by ER provider COPD -on 3L -not in exacerbation Chronic anemia, with iron defeciency anemia -has not received iron infusions -will transfuse IV iron -monitor hgb -hx of GI bleed, history of egd and colonoscopy without any specific cause identified Fluid overload -1 dose lasix -hold fluid therapy chronic respiratory failure FARNAZ, cpap scd for dvt prophylaxis dnr/dni Attestations Medical Necessity Statement*: patient requires hospitalization for fall, with left femure fracture, with humeral fracture, with iron defeceicny, with fluid overload Diagnoses Supracondylar fracture of left femur S72.452A Encounter type: initial encounter Fracture type: closed Closed fracture of greater tuberosity of humerus S42.254A Encounter type: initial encounter Fracture alignment: nondisplaced Laterality: right Chronic anemia D64.9 Iron deficiency anemia D50.9 CHF (congestive heart failure) I50.9 GI bleed K92.2 GI bleed type/associated pathology: unspecified gastrointestinal hemorrhage type History of deep venous thrombosis or pulmonary embolus Malignant neoplasm of upper-outer quadrant of right female breast C50.411 Fluid overload E87.70 COPD (chronic obstructive pulmonary disease) J44.9
[2023-04-23 14:34] LABS: INR 0.96 (0.8-1.2)
[2023-04-23 14:41] LABS: Troponin(5th) Baseline 22 ng/L (0-10)
[2023-04-23 14:48] LABS: NT Pro B Type Natriuretic Pept 241 pg/mL (0-450)
--- NOTE | 2023-04-23 14:59 | PC.NURSE ---
Patient unable to tolerate sling placement on right shoulder, physician notified.
[2023-04-23 16:01] LABS: Chol HDL Ratio 1.59 mg/dL (0.0-4.40); Cholesterol 157 mg/dL (0-200); HDL Cholesterol 99 mg/dL (60-100); LDL Cholesterol Calculated 46 mg/dL (50-129); LDL HDL Ratio 0.46 RATIO (0.00-3.22); Thyroid Stimulating Hormone 4.24 uIU/mL (0.27-4.20); Triglycerides 62 mg/dL (0-150)
[2023-04-23 16:53] LABS: Troponin(5th) Baseline 20 ng/L (0-10)
[2023-04-23] MEDS: FUROsemide 10 mg/mL SDV 4mL 40 MG IVP (17:04)
[2023-04-23] MEDS: pantoprazole 40 mg SDV IVP (17:04)
[2023-04-23] MEDS: gabapentin 300 mg Capsule 900 MG PO (17:09)
[2023-04-23] MEDS: acetaminophen 325 mg Tablet 650 MG PO (17:10)
[2023-04-23] MEDS: sucralfate 1 gm Tablet PO (17:10)
[2023-04-23] MEDS: iron sucrose 200 MG in sodium chloride 0.9% (100 ml) 100 ML 220 MG IV (17:11)
[2023-04-23] MEDS: heparin drip 25,000 UNIT/500 ML PREMIX 21 UNIT IV (17:45)
[2023-04-23 18:41] LABS: Troponin 5 2HR 20.18 ng/L (0-10)
[2023-04-23 18:51] LABS: Troponin 5 2HR Delta 0.18 ABS# (0-10)
[2023-04-23] MEDS: ipratropium-albuterol 3 mL Neb INHALATION (19:32)
--- NOTE | 2023-04-23 20:31 | ECG_ITS ---
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 Measurements Intervals [place] Rate: 65 P: 46 [place]: 168 QRS: 69 QRSD: 102 T: 74 QT: 449 QTc: 467 Interpretive Statements SINUS RHYTHM Compared to ECG 04/23/2023 15:32:19 Prolonged QT interval no longer present Electronically Signed On 04-24-2023 20:31:40 CDT by Lacy Santos M.D. https://[employer].InforceProsinging river gulfportSpinlogic Technologiesselect medical specialty hospital - cincinnatiinTarvo/store/OM/[id number]
[2023-04-23 21:15] LABS: Estmated Average Glucose 77; Hemoglobin A1C 4.3 % (4.0-6.0)
[2023-04-23 21:35] LABS: Hematocrit 26.7 % (36-47)
[2023-04-23 21:56] LABS: Troponin 5 6HR 20.99 ng/L (0-10); Troponin 5 6HR Delta 0.99 ng/L (0-12)
[2023-04-23] MEDS: morphine 4 mg/mL SDV 1 mL 1 MG IVP (22:15)
[2023-04-24] VITALS (16 sets, daily range): BP systolic 113–149; BP diastolic 51–71; PULSE 56–77; RESP 15–18; TEMP 36.6–37.2; O2SAT 92–97
[2023-04-24 00:30] LABS: Partial Thromboplastin Time 104.8 SECONDS (23.9-36.7)
[2023-04-24] MEDS: acetaminophen 325 mg Tablet 650 MG PO (03:00)
[2023-04-24] MEDS: pantoprazole 40 mg SDV IVP ×2 (03:00→16:19)
[2023-04-24] MEDS: sucralfate 1 gm Tablet PO ×2 (04:53→16:20)
[2023-04-24 05:34] LABS: Basophils # 0.1 10^3/uL (0.0-0.1); Basophils % 1.1 %; Eosinophils # 0.2 10^3/uL (0.0-0.8); Eosinophils % 3.2 %; Hematocrit 27.6 % (36-47); Lymphocytes # 0.6 10^3/uL (0.8-4.8); Lymphocytes % 9.4 %; Mean Corpuscular HGB Conc 27.2 g/dL (30-55); Mean Corpuscular Hemoglobin 24.4 pg (27-33); Mean Corpuscular Volume 89.6 fl (85-98); Mean Platelet Volume 9.2 fL (7.4-10.4); Monocytes # 1.2 10^3/uL (0.2-0.9); Monocytes % 17.5 %; Neutrophils % 68.3 %; Nucleated Red Blood Cells % 0 %; Platelet Count 206 10^3/cmm (157-399); Red Blood Count 3.08 10^6/uL (3.85-5.65); Red Cell Distribution Width 21.4 % (12.1-15.1); White Blood Count 6.58 10^3/uL (3.29-11.43)
[2023-04-24 06:11] LABS: Alanine Aminotransferase 11 U/L (0-33); Albumin Level 3.2 g/dL (3.5-5.2); Alkaline Phosphatase 64 U/L (35-105); Aspartate Amino Transferase 23 U/L (0-32); Blood Urea Nitrogen 17 mg/dL (8-23); Calcium 7.5 mg/dL (8.5-10.5); Carbon Dioxide 36 mmol/L (22-29); Chloride 99 mmol/L (98-107); Globulin 2.1 g/dL (1.3-4.6); Glucose 98 mg/dL (65-115); Osmolality Calculated 292 mOsm/kg (285-295); Phosphorus 3.6 mg/dL (2.5-4.5); Sodium 140 mmol/L (136-145); Total Bilirubin 0.4 mg/dL (0.15-1.2); Total Protein 5.3 g/dL (6.6-8.7)
[2023-04-24 07:39] LABS: Partial Thromboplastin Time 83.8 SECONDS (23.9-36.7)
[2023-04-24] MEDS: ipratropium-albuterol 3 mL Neb INHALATION ×3 (07:46→20:11)
[2023-04-24] MEDS: morphine 4 mg/mL SDV 1 mL 1 MG IVP ×2 (08:04→10:08)
[2023-04-24] MEDS: donepezil 5 MG Tablet 10 MG PO (08:30)
[2023-04-24] MEDS: aspirin 81 mg EC Tablet PO (08:31)
[2023-04-24] MEDS: cholecalciferol (vitamin D3) 1,000 unit Tablet 1000 UNIT PO (08:31)
[2023-04-24] MEDS: ferrous sulfate EC 325 mg Tablet PO (08:31)
[2023-04-24] MEDS: gabapentin 300 mg Capsule 600 MG PO (08:31)
[2023-04-24] MEDS: citalopram 20 mg Tablet PO (08:32)
[2023-04-24] MEDS: atorvastatin 40 mg Tablet PO (08:32)
[2023-04-24] MEDS: ascorbic acid 500 mg Tablet PO (08:32)
--- NOTE | 2023-04-24 10:46 | PC.CHAP ---
Pastoral Care Encounter/Spiritual Assessment Type of Contact [] Declined care transitions manager visit [] Patient/Family/Request visit [] Outpatient visit [] Follow-up visit [] Physician referral [] Code/Alert x[] Routine visit [] Staff referral [] Actively dying [] Patient sleeping [x] Family support [] [] Out of room [] Palliative care [] [] Receiving care in room [] Pre-surgical visit [] Trauma [] Long length of stay [] ICU visit [] Other: Relational/Emotional Strength [] Patient feels connected with others/family/visitors/staff [] Distress [] Loneliness/isolation [] Abandonment Spirituality of Patient [x] Person of Deepali [] Attends Jewish of their Deepali [] Believes in Prayer [] Reads Bible or Yarsanism materials [] There are Spiritual issues to be addressed 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 [employer] Interventions x[] Prayer [x] Active listening [] Non-anxious presence [] Spiritual/emotional support [] Crisis/trauma care [] Spiritual counseling [] Bereavement support [] Provided bereavement packet [] Provided Bible/devotional materials [] Provided toy/stuffed animal, coloring book to patient or family member [] Provided Communion [] Anointing/[place] [] Salvation [x] Completed spiritual assessment [] Other: Impact on Illness or Injury [] Angry [] Fearful [] Anxious [] Often cries [] Exhaustion [] Unable to work [] Unable to attend anabaptism [] Unable to walk/stand [] Unable to read [] Unable to drive [] Unable to eat/drink [] Unable to sleep [] Unable to be with family [] Patient intubated [] Other: Summary Time spent with patient 15 min
[2023-04-24 12:48] LABS: Hematocrit 27.1 % (36-47)
[2023-04-24 13:04] LABS: Partial Thromboplastin Time 57.8 SECONDS (23.9-36.7)
--- NOTE | 2023-04-24 13:18 | P.CONIM_ITS ---
Providers/Reason For Consult Consulting Physician/Specialty*: Blessing Joyner MD Reason for Consult*: Left periprosthetic supracondylar femur fracture Requesting Physician: Rebecca Hunter NP Attending Physician: Herman Kyle MD Primary Care Provider: Zhang Gamboa MD History of Present Illness History of Present Illness Maddison Jenkins is a 77 year old female who presented through the emergency department after a fall at home. The patient was on a retaining wall looking at her rosebushes. She fell after losing her balance. She had no reason for her fall other than losing her balance. At the time of admission, she was noted to have a left femur fracture which is periprosthetic around a total knee arthrop lasty. At the time of admission, right shoulder imaging demonstrated a subtle greater tuberosity fracture. Patient was admitted from the emergency room with inability to weight-bear and the above diagnoses. Additionally, patient has diagnosis of anemia for which she was to begin iron infusions, however these have not been started as of yet. Patient's past medical history is significant for pulmonary embolism, DVT, IVC filter, and COPD. She is chronically on Eliquis for her history of pulmonary emboli. She also has chronic sleep apnea, chronic hypoxic respiratory failure, history of GI bleed, and history of anemia. Review of Systems Const: Denies: fever(s) or chills Eyes: Denies: change in vision, blurry vision, photophobia, eye discharge, floaters or seeing flashes ENMT: Denies: throat pain, odynophagia, ear or mastoid pain, ear discharge, n kushal discharge, epistaxis or sinus pain Card: Denies: chest pain, palpitations, edema, lightheadedness, syncope, pre- syncope or dyspnea on exertion Resp: Denies: dyspnea, non-productive cough or pain on inspiration GI: Denies: abdominal pain, nausea, vomiting, hematemesis, coffee ground emesis, hematochezia or melena : Denies: flank pain or hematuria Musc: Reports: joint pain (Left hip, right shoulder), limited range of motion and muscle cramps; Denies: neck pain, back pain, extremity pain, extremity swelling, joint swelling or joint redness Skin/Breast: Denies: rash Neuro: Denies: headache(s), numbness in extremities, weakness in extremities, sensory changes or dizziness Psych: Denies: anxiety Endo: Denies: polyuria All/Imm: Denies: acute wheezing Medications/Allergies Home Medications Medication Instructions Recorded Confirmed Last Taken Type citalopram 20 mg tablet 20 mg PO DAILY 09/09/19 04/23/23 04/23/23 History donepezil 10 mg tablet 10 mg PO DAILY 09/09/19 04/23/23 04/23/23 History ferrous sulfate 324 mg (65 mg 324 mg PO DAILY 09/09/19 04/23/23 04/23/23 History iron) tablet,delayed release gabapentin 300 mg capsule See Rx Instructions .Route .COMPLEX 09/09/19 04/23/23 04/23/23 History aspirin 81 mg tablet,delayed 81 mg PO DAILY 12/10/19 04/23/23 04/23/23 History release (Adult Aspirin Regimen) magnesium oxide 500 mg capsule 500 mg PO DAILY 12/10/19 04/23/23 04/23/23 History mecobalamin (vitamin B12) 1,000 1,000 mcg PO DAILY 12/10/19 04/23/23 04/23/23 History mcg chewable tablet tramadol 50 mg tablet 50 mg PO TID PRN Pain 04/07/21 04/23/23 09/18/21 History Power step arch support #2 ea 05/04/21 04/23/23 09/18/21 Rx tizanidine 4 mg capsule 4 mg PO QID PRN muscle spasms 01/04/22 04/23/23 Unknown History fluticasone propionate 50 1 spray intranasal BID 01/26/22 04/23/23 04/23/23 History mcg/actuation nasal spray,suspension nitroglycerin 0.4 mg sublingual 0.4 mg sublingual Q5M PRN Chest 05/22/22 04/23/23 Unknown Rx tablet Pain #25 tabs potassium chloride 20 mEq 20 meq PO BID #180 tabs 05/22/22 04/23/23 04/23/23 Rx tablet,extended release(part/cryst) (Klor-Con M) rosuvastatin 10 mg tablet (Crestor) 10 mg PO DAILY #90 tabs 05/22/22 04/23/23 04/23/23 Rx apixaban 2.5 mg tablet (Eliquis) 2.5 mg PO DAILY 07/30/22 04/23/23 04/23/23 History bumetanide 1 mg tablet 1 mg PO DAILY 07/30/22 04/23/23 04/23/23 History cholecalciferol (vitamin D3) 25 25 mcg PO DAILY 07/30/22 04/23/23 04/23/23 History mcg (1,000 unit) capsule diphenhydramine HCl 25 mg tablet 25 mg PO TID PRN Allergic Symptoms 07/30/22 04/23/23 04/23/23 History (Benadryl Allergy) ketoconazole 2 % shampoo 1 applic topical .2 x weekly #120 09/06/22 04/23/23 Unknown Rx mL mupirocin 2 % topical ointment 1 applic topical BID #15 grams 09/24/22 04/23/23 Unknown Rx ascorbic acid (vitamin C) 500 mg 500 mg PO DAILY #90 caps 09/25/22 04/23/23 04/23/23 Rx capsule anastrozole 1 mg tablet 1 mg PO DAILY #90 tabs 11/26/22 04/23/23 04/23/23 Rx ipratropium 0.5 mg-albuterol 3 mg 3 ml inhalation Q6H PRN wheezing 04/02/23 04/23/23 Unknown Rx (2.5 mg base)/3 mL nebulization #180 mL soln betamethasone dipropionate 0.05 % 1 applic topical BID PRN Rash 04/23/23 04/23/23 Unknown History topical cream hydrocortisone 2.5 % topical cream See Rx Instructions .Route .COMPLEX 04/23/23 04/23/23 Unknown History triamcinolone acetonide 0.1 % See Rx Instructions .Route .COMPLEX 04/23/23 04/23/23 Unknown History topical cream Allergies Allergy/AdvReac Type Severity Reaction Status Date / Time No Known Allergies Allergy Verified 04/01/23 13:25 Current Medications Generic Name Dose Route Start Last Admin Trade Name Freq PRN Reason Stop Dose Admin Acetaminophen 650 mg 04/23/23 15:33 04/24/23 03:00 Acetaminophen 325 Mg Tablet PO 650 mg Q6H PRN Administration Mild/Mod Pain Or Temp >/= 101 Albuterol/Ipratropium 3 ml 04/23/23 20:00 04/24/23 13:13 Ipratropium-Albuterol 3 Ml Neb INHALATION 3 ml TID.RESP SUJATA Administration Ascorbic Acid 500 mg 04/24/23 09:00 04/24/23 08:32 Ascorbic Acid 500 Mg Tablet PO 500 mg DAILY SUJATA Administration Aspirin 81 mg 04/24/23 09:00 04/24/23 08:31 Aspirin 81 Mg Ec Tablet PO 81 mg DAILY SUJATA Administration Atorvastatin Calcium 40 mg 04/24/23 09:00 04/24/23 08:32 Atorvastatin 40 Mg Tablet PO 40 mg DAILY SUJATA Administration Citalopram Hydrobromide 20 mg 04/24/23 09:00 04/24/23 08:32 Citalopram 20 Mg Tablet PO 20 mg DAILY SUJATA Administration Donepezil HCl 10 mg 04/24/23 09:00 04/24/23 08:30 Donepezil 5 Mg Tablet PO 10 mg DAILY SUJATA Administration Ferrous Sulfate 325 mg 04/24/23 09:00 04/24/23 08:31 Ferrous Sulfate Ec 325 Mg Tablet PO 325 mg DAILY SUJATA Administration Gabapentin 600 mg 04/24/23 09:00 04/24/23 08:31 Gabapentin 300 Mg Capsule PO 600 mg DAILY SUJATA Administration Gabapentin 900 mg 04/23/23 18:00 04/23/23 17:09 Gabapentin 300 Mg Capsule PO 900 mg QPM SUJATA Administration Iron Sucrose 200 mg/ Sodium 110 mls @ 220 mls/hr 04/23/23 17:00 04/23/23 17:44 Chloride IV 04/27/23 17:29 Infused Q24H SUJATA Infusion Heparin Sodium/Sodium Chloride 25,000 unit in 500 mls @ 0 mls/hr 04/23/23 16:15 04/24/23 07:52 Heparin Drip IV 10.89 unit/kg/hr .Q0M SUJATA 16 mls/hr Titration Protocol Per Protocol Pantoprazole Sodium 40 mg 04/23/23 15:33 04/24/23 03:00 Pantoprazole 40 Mg Sdv IVP 40 mg Q12H SUJATA Administration Sucralfate 1 gm 04/23/23 16:15 04/24/23 04:53 Sucralfate 1 Gm Tablet PO 1 gm Q12H SUJATA Administration Vitamin D 1,000 unit 04/24/23 09:00 04/24/23 08:31 Cholecalciferol (Vitamin D3) 1,000 Unit Tablet PO 1,000 unit DAILY SUJATA Administration PFSH Acute PFSH: Medical History (Updated 04/24/23 @ 21:50 by Blessing Joyner MD) Acute depression Acute on chronic anemia Alzheimer disease B12 deficiency Bradycardia Patient states her heart rate runs in 40s to 50s at home Breast cancer CHF (congestive heart failure) Chronic kidney disease Chronic respiratory failure with hypoxia and hypercapnia COPD (chronic obstructive pulmonary disease) COPD (chronic obstructive pulmonary disease) D-dimer, elevated DVT (deep venous thrombosis) GERD (gastroesophageal reflux disease) Hematoma Small complex fluid lesion adjacent to superficial thrombophlebitis in the left calf, 26 x 10 x 24 mm, History of deep venous thrombosis or pulmonary embolus History of nonmelanoma skin cancer HTN (hypertension) Hyperlipidemia IBS (irritable bowel syndrome) Iron deficiency anemia 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, N0, M0, G1 Muscle spasm Obstructive sleep apnea Presence of IVC filter Pulmonary emboli Rheumatoid arthritis Seasonal allergic rhinitis Superficial thrombophlebitis Tachycardia Varicose veins of left leg with edema Surgical History H/O neck surgery H/O shoulder surgery H/O wrist surgery H/O: knee surgery History of back surgery History of cholecystectomy History of ear surgery History of hysterectomy History of lumpectomy of right breast Family History Father CAD (coronary artery disease) Cancer Mother CAD (coronary artery disease) Brother CAD (coronary artery disease) Sister Cancer Other Diabetes Hyperlipidemia Hypertension Lung disease Psychiatric illness Social History Smoking and tobacco status: former smoker Quit status (tobacco): has quit using tobacco Year quit tobacco: 1995 - 1PPD x 40 Years Alcohol intake: never Substance/Drug Use: never Lives independently: Yes Household members: spouse Marital status: Current occupational status: retired Do you think of yourself as: Straight/Heterosexual Current gender identity: Female Dietary Habits: Current diet type/program: regular Caffeine: Yes Caffeine intake frequency: coffee Number of coffee servings: 2 Vitals/I&O/Wt Last Vital Signs Temp 98.2 F 04/24/23 12:32 Pulse 61 04/24/23 13:15 Resp 16 04/24/23 13:15 BP 128/57 04/24/23 12:32 Pulse Ox 92 04/24/23 13:15 O2 Del Method Nasal Cannula 04/24/23 13:15 O2 Flow Rate 3 04/24/23 13:15 04/23/23 04/24/23 04/24/23 22:59 06:59 14:59 Intake Total 468.333 / 468.333 157.85 / 626.183 586.722 / 586.722 Output Total 1850 / 1850 450 / 2300 Balance -1381.667 / -1381.667 -292.15 / -1673.817 586.722 / 586.722 Weight last 48 hrs Weight 162 lb Physical Exam Const: COMMON NORMALS: no acute distress, average body habitus, patient oriented x3 and alert GENERAL APPEARANCE: cooperative and comfortable ORIENTATION/CONSCIOUSNESS: Yes awake HENMT: COMMON NORMALS: normocephalic and atraumatic HEAD & SCALP: normocephalic and atraumatic Eye: GENERAL EYE: appearance normal, both eyes and all related structures Chest: COMMONS NORMALS: normal inspection of the chest Resp: COMMON NORMALS: normal respiratory effort EFFORT & INSPECTION: Yes able to speak in complete sentences and Yes symmetric chest movement Extremity: LEFT LOWER EXTREMITY: Yes knee joint (Patient's knee is immobilized) Left knee: Yes palpation (Not performed), Yes ROM (Not performed secondary to fracture), Yes neurovascular exam (Intact distally) and Yes other (No evidence of DVT at the moment) Neuro: COMMON NORMALS: patient oriented x3 SENSORIUM/ORIENTATION: Yes alert Psych: COMMON NORMALS: mental status grossly normal APPEARANCE: Yes grossly normal ATTITUDE: Yes calm and Yes engaged ATTENTION/CONCENTRATION: Yes attention grossly intact Skin: COMMON NORMALS: no rashes or lesions noted GENERAL SKIN EXAM: no rashes or lesions noted Urinary Catheter Management: Teresa Latex Free: Cath Placed During This Visit: yes Reason for Continuing Indwelling Catheter: Acute Urinary Retention or Obstr uction Urinary Catheter Date of Insertion: 04/23/23 Urinary Catheter Time of Insertion: 13:06 Data 04/24/23 19:53 04/24/23 05:15 Xray Ortho: Radiologist's impression: X-rays of the patient's right shoulder and left knee/femur are personally interpreted by me. The x-ray series includes 4 views of the patient's left femur. Proximally, there is no evidence of fracture, but distally, there is a periprosthetic distal femoral shaft fracture which extends into the metaphyseal area. This is comminuted and displaced. There is a total knee in position as well. The fracture extends into the distal femur in the area of the total knee arthroplasty. Additionally, shoulder images appear to demonstrate a slightly depressed greater tuberosity fracture of the right humerus. CT will be ordered to further evalua te this. We will hold off on CT until after the patient's surgery and stabilization. A&P Assessment and plan (1) Supracondylar fracture of left femur: X-rays demonstrate a periprosthetic intercondylar/supracondylar/distal femur fracture which is comminuted and displaced. Plans are made for open reduction internal fixation of this fracture with a long sideplate. Risks and complications of the surgical procedure and planned procedure are discussed in detail with the patient. She understands and is consented for the surgical procedure. This will occur tomorrow, April 25. She is high risk secondary to her previous history of pulmonary embolism. She is being followed and treated by the medical service. She is chronically on anticoagulation for this, and she has been maintained on a heparin drip which will be discontinued at midnight to allow for her surgery. Qualifiers: Encounter type: initial encounter Fracture type: closed Qualified Code(s): S72.452A - Displaced supracondylar fracture without intracondylar extension of lower end of left femur, initial encounter for closed fracture (2) Periprosthetic fracture around internal prosthetic left knee joint: Qualifiers: Encounter type: initial encounter Qualified Code(s): M97.12XA - Perip rosthetic fracture around internal prosthetic left knee joint, initial encounter (3) Closed fracture of greater tuberosity of humerus: Patient's x-rays demonstrate what appears to be a subtle greater tuberosity fracture in the right humerus. I have ordered a CT scan to be obtained after her surgical stabilization of her distal femur fracture to further evaluate this fracture. Qualifiers: Encounter type: initial encounter Fracture alignment: nondisplaced Laterality: right Qualified Code(s): S42.254A - Nondisplaced fracture of greater tuberosity of right humerus, initial encounter for closed fracture Coding Level of Care Code Acute Code for Chg Fwd Diagnoses Supracondylar fracture of left femur S72.452A Encounter type: initial encounter Fracture type: closed Periprosthetic fracture around internal prosthetic left knee joint M97.12XA Encounter type: initial encounter Closed fracture of greater tuberosity of humerus S42.254A Encounter type: initial encounter Fracture alignment: nondisplaced Laterality: right
[2023-04-24] MEDS: HYDROmorphone 1 mg/mL INJ 1 mL IVP (16:20)
--- NOTE | 2023-04-24 16:49 | P.PN_ITS ---
Subjective Subjective: Patient was seen this morning, patient's daughter is at bedside, we had an extensive discussion as her hemoglobin 7.5, no bloody or black stools, no hemodynamic compromise, certainly this is a difficult situation, she has had a history of DVT, no saddle pulmonary embolism she does have an IVC filter in place, but now she is relatively immobile with a hip fracture and she has a significant risk of hypercoagulable events, but on the other hand she has a history of known anemia, history of GI bleeds without a clear source identified she tells me that she is already had a capsule endoscopy without any significant findings, she has had EGDs without significant findings, she has had colonoscopi es and one within the last few years which she was found to have a couple of precancerous polyps but she was told she has many polyps, so certainly she could be developing anemia from a possible bleeding polyp, her hemoglobin has remained stable at 7.5 I am getting iron infusions for iron deficiency, the plan is to continue to monitor hemoglobin and that at midnight we will stop her heparin drip and plans for surgery tomorrow morning, holding at roughly 12 hours before surgery. After her surgery we can consider certainly resuming the heparin drip and watching her hemoglobin and see if she develops further anemia. I had an extensive discussion with her about shared decision making about but what we do in terms of her long-term anticoagulation, for now she wants us to continue anticoagulation, but if she develops further anemia or significant evidence of GI bleed and she is agreeable to stop anticoagulation. Again she does have an IVC filter placement if she does develop a blood clot, there would not be significant risk of embolic phenomenon although she could develop a clot above t he IVC filter. She is on anastrozole for history of breast cancer, I did discuss with her that anastrozole is associate with hypercoagulable events, for now I would recommend at least holding it. She also tells me that in her right arm she has developed a couple of knots, she has not had a mammogram in many years, has not had an ultrasound. Upon examination these notes feel like enlarged lymph nodes, she has enlarged brachial lymph nodes, she did have a couple of lymph nodes enlarged in her left axilla, we discussed that she likely as outpatient will need to have a mammogram and ultrasonography. Vitals/I&O/Wt Last Vital Signs Temp 98.2 F 08/23/23 16:04 Pulse 65 04/24/23 16:04 Resp 17 04/24/23 16:20 BP 131/68 04/24/23 16:04 Pulse Ox 95 04/24/23 16:04 O2 Del Method Nasal Cannula 04/24/23 16:04 O2 Flow Rate 3 04/24/23 13:15 04/24/23 04/24/23 04/24/23 06:59 14:59 22:59 Intake Total 157.85 / 675.196 2550.722 / 1066.722 Output Total 450 / 2300 Balance -292.15 / -4748.603 0489.722 / 1066.722 Weight last 48 hrs Weight 73.482 kg Physical Exam Const: COMMON NORMALS: no acute distress and patient oriented x3 Resp: COMMON NORMALS: normal respiratory effort, No retractions, No use of accessory muscles and clear to auscultation bilaterally AUSCULTATION: clear to auscultation bilaterally Cardio: COMMON NORMALS: regular rate, regular rhythm, S1 normal heart sound present and S2 normal heart sound present RATE: regular rate RHYTHM: regular rhythm HEART SOUNDS: S1 normal heart sound present and S2 normal heart sound present GI: COMMON NORMALS: Normal to inspection, nondistended, normoactive bowel sounds present and non-tender Extremity: COMMON NORMALS: no pedal edema Neuro: COMMON NORMALS: patient oriented x3 Psych: COMMON NORMALS: mental status grossly normal Urinary Catheter Management: Teresa Latex Free: Cath Placed During This Visit: yes Reason for Continuing Indwelling Catheter: Acute Urinary Retention or Obstruction Urinary Catheter Date of Insertion: 04/23/23 Urinary Catheter Time of Insertion: 13:06 Data 04/24/23 12:40 04/24/23 05:15 A&P Assessment and plan (1) Supracondylar fracture of left femur: Qualifiers: Encounter type: initial encounter Fracture type: closed Qualified Code(s): S72.452A - Displaced supracondylar fracture without intracondylar extension of lower end of left femur, initial encounter for closed fracture (2) Closed fracture of greater tuberosity of humerus: Qualifiers: Encounter type: initial encounter Fracture alignment: nondisplaced Laterality: right Qualified Code(s): S42.254A - Nondisplaced fracture of greater tuberosity of right humerus, initial encounter for closed fracture (3) Chronic anemia: (4) Iron deficiency anemia: (5) CHF (congestive heart failure): (6) GI bleed: Qualifiers: GI bleed type/associated pathology: unspecified gastrointestinal hemorrhage type Qualified Code(s): K92.2 - Gastrointestinal hemorrhage, unspecified (7) History of deep venous thrombosis or pulmonary embolus: (8) Malignant neoplasm of upper-outer quadrant of right female breast: (9) Fluid overload: (10) COPD (chronic obstructive pulmonary disease): (11) Enlarged lymph nodes: Plan Left femur fracture plan -last dose of eliquis was last night -pain control and anticoagulation as per orthopedics -history of dvt and pe, saddle pe, iv filter in place, on prophylactic eliquis 2.5mg qD, currently on heparin drip -npo -dr. kapadia consulted by ER provider COPD -on 3L -not in exacerbation Chronic anemia, with iron defeciency anemia ? Has had EGDs without significant findings according to patient, has had a capsule endoscopy without significant findings, has had a colonoscopy with multiple polyps some precancerous this was multiple years ago, has not had any imaging since then, possible slow GI bleed -has not received iron infusions -will transfuse IV iron -monitor hgb -Protonix, Carafate, monitor hemoglobin every 4 hours ? If develop anemia less than 7 then will likely stop heparin drip transfuse, and likely consult general surgery for EGD colonoscopy, if no significant source of bleeding is found then we will likely have to hold anticoagulation indefinitely, this will be a difficult decision as she has a high risk of hyperc oagulable events given her femur fracture relative immobility, recent surgery for her hip as above, Fluid overload -1 dose lasix -hold fluid therapy chronic respiratory failure FARNAZ, cpap Enlarged lymph nodes, left arm, left axilla, will need to follow-up outpatient with mammogram, ultrasound scd for dvt prophylaxis dnr/dni Attestations 2 Medical Necessity Statement*: Patient requires hospitalization for anemia, iron deficient anemia, concerns for GI bleed, with hip fracture, on a heparin drip, history of DVT, saddle PE Coding Level of Care Code 29714 High Time for a total of 50 minutes, includes reviewing past or interval h istory, examining/interviewing patient, counseling patient/family/other support, updating patient/family/other support, discussing plan of care with staff, communicating with other healthcare providers, documenting encounter and coordinating care Diagnoses Supracondylar fracture of left femur S72.452A Encounter type: initial encounter Fracture type: closed Closed fracture of greater tuberosity of humerus S42.254A Encounter type: initial encounter Fracture alignment: nondisplaced Laterality: right Chronic anemia D64.9 Iron deficiency anemia D50.9 CHF (congestive heart failure) I50.9 GI bleed K92.2 GI bleed type/associated pathology: unspecified gastrointestinal hemorrhage type History of deep venous thrombosis or pulmonary embolus 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
[2023-04-24 17:21] LABS: Hematocrit 26.9 % (36-47)
[2023-04-24] MEDS: gabapentin 300 mg Capsule 900 MG PO (17:38)
[2023-04-24] MEDS: iron sucrose 200 MG in sodium chloride 0.9% (100 ml) 100 ML 220 MG IV (17:39)
[2023-04-24 19:59] LABS: Hematocrit 27.1 % (36-47)
[2023-04-24 20:30] LABS: Partial Thromboplastin Time 75.7 SECONDS (23.9-36.7)
[2023-04-24] MEDS: heparin drip 25,000 UNIT/500 ML PREMIX 15 UNIT IV (22:29)
[2023-04-25] VITALS (23 sets, daily range): BP systolic 114–171; BP diastolic 51–74; PULSE 58–90; RESP 16–20; TEMP 36.2–37.6; O2SAT 90–97
--- NOTE | 2023-04-25 | XR_ITS ---
WS: [id number] EXAMINATION: XR femur LT min 2V* [id number] REASON FOR EXAM: ORIF periprosthetic femur COMPARISON: 04/23/2023 ORDER DATE: 04/25/2023 12:00 AM FINDINGS/IMPRESSION: There is a long sideplate and screw fixation of the comminuted oblique distal femoral fracture with s atisfactory reduction and approximation of the fracture margins. Additionally there is already presen t a total knee replacement. Total fluoroscopy time 158.9 seconds
[2023-04-25 01:28] LABS: Hematocrit 26.2 % (36-47)
[2023-04-25] MEDS: pantoprazole 40 mg SDV IVP (03:46)
[2023-04-25 04:03] LABS: Basophils # 0.1 10^3/uL (0.0-0.1); Basophils % 0.5 %; Eosinophils # 0.3 10^3/uL (0.0-0.8); Eosinophils % 3.6 %; Hematocrit 25.8 % (36-47); Lymphocytes # 0.5 10^3/uL (0.8-4.8); Lymphocytes % 5.9 %; Mean Corpuscular HGB Conc 28.3 g/dL (30-55); Mean Corpuscular Hemoglobin 24.8 pg (27-33); Mean Corpuscular Volume 87.8 fl (85-98); Mean Platelet Volume 10.2 fL (7.4-10.4); Monocytes # 1.7 10^3/uL (0.2-0.9); Monocytes % 18.4 %; Neutrophils # 6.54 10^3/uL (1.8-7.7); Neutrophils % 70.8 %; Nucleated Red Blood Cells # 0.1 /100WBC; Nucleated Red Blood Cells % 1.5 %; Platelet Count 328 10^3/cmm (157-399); Red Blood Count 2.94 10^6/uL (3.85-5.65); Red Cell Distribution Width 21.9 % (12.1-15.1); White Blood Count 9.23 10^3/uL (3.29-11.43)
[2023-04-25 04:16] LABS: Partial Thromboplastin Time 37.1 SECONDS (23.9-36.7)
[2023-04-25 04:25] LABS: Alanine Aminotransferase 10 U/L (0-33); Albumin Level 3.6 g/dL (3.5-5.2); Alkaline Phosphatase 70 U/L (35-105); Aspartate Amino Transferase 17 U/L (0-32); Blood Urea Nitrogen 18 mg/dL (8-23); Calcium 7.6 mg/dL (8.5-10.5); Carbon Dioxide 34 mmol/L (22-29); Chloride 95 mmol/L (98-107); Glucose 123 mg/dL (65-115); Magnesium 2.2 mg/dL (1.7-2.3); Osmolality Calculated 285 mOsm/kg (285-295); Phosphorus 3.2 mg/dL (2.5-4.5); Sodium 136 mmol/L (136-145); Total Bilirubin 0.4 mg/dL (0.15-1.2); Total Protein 5.6 g/dL (6.6-8.7)
[2023-04-25] MEDS: ipratropium-albuterol 3 mL Neb INHALATION (09:31)
[2023-04-25] MEDS: citalopram 20 mg Tablet PO (09:49)
[2023-04-25] MEDS: donepezil 5 MG Tablet 10 MG PO (09:49)
[2023-04-25] MEDS: gabapentin 300 mg Capsule 600 MG PO (09:49)
[2023-04-25] MEDS: ferrous sulfate EC 325 mg Tablet PO (09:50)
[2023-04-25] MEDS: cholecalciferol (vitamin D3) 1,000 unit Tablet 1000 UNIT PO (09:50)
[2023-04-25] MEDS: ascorbic acid 500 mg Tablet PO (09:50)
[2023-04-25] MEDS: atorvastatin 40 mg Tablet PO (09:50)
[2023-04-25] MEDS: CELEcoxib 200 mg Capsule 400 MG PO (12:13)
[2023-04-25] MEDS: gabapentin 300 mg Capsule PO (12:13)
[2023-04-25] MEDS: acetaminophen 1,000 MG/100 ML PIGGYBACK 400 MG IV (12:13)
[2023-04-25] MEDS: sodium chloride 0.9% 1,000 ML 30 ML IV (12:15)
--- NOTE | 2023-04-25 12:23 | ANES.PREANE2 ---
Pre-Anesthetic Assessment Height/Weight: Height 1.57 m Weight 73.482 kg Temp Pulse Resp BP Pulse Ox O2 Del Method O2 Flow Rate 99.7 F H 77 18 127/61 91 Nasal Cannula 2 04/25/23 12:04 04/25/23 12:04 04/25/23 12:04 04/25/23 12:04 04/25/23 12:04 04/25/23 12:04 04/25/23 12:04 Operation Date: 04/25/23 12:30 Proposed Procedures p ORIF Left Periprosthetic Femur Fracture(Left) - Blessing Joyner MD Familial anesthetic complications: none Was Beta Marissa taken within 24 hours: N/A Was Clonidine taken within 24 hours: N/A Last intake: Intake Last Liquid Date 04/24/23 Last Liquid Time 20:00 Last Solid Date 04/24/23 Last Solid Time 18:00 Social No alcohol and No tobacco Exam alert, oriented x 3, clear to auscultation bilaterally and regular rate & rhythm Airway Submandibular: within normal limits Cervical ROM: within normal limits Mallampati: Class II Dentition: chipped Pulmonary Chronic Obstructive Pulmonary Disease CV/HEM Atrial Fibrillation, Anemia, Coronary Artery Disease, Deep Vein Thrombosis (PE) and Hypertension [facility] [place] [place]oarthritis/DJD Anesthetic Plan ASA status: 3 Anesthesia: General Medications/Allergies Home Medications Medication Instructions Recorded Confirmed Last Taken Type citalopram 20 mg tablet 20 mg PO DAILY 09/09/19 04/23/23 04/23/23 History donepezil 10 mg tablet 10 mg PO DAILY 09/09/19 04/23/23 04/23/23 History ferrous sulfate 324 mg (65 mg 324 mg PO DAILY 09/09/19 04/23/23 04/23/23 History iron) tablet,delayed release gabapentin 300 mg capsule See Rx Instructions .Route .COMPLEX 09/09/19 04/23/23 04/23/23 History aspirin 81 mg tablet,delayed 81 mg PO DAILY 12/10/19 04/23/23 04/23/23 History release (Adult Aspirin Regimen) magnesium oxide 500 mg capsule 500 mg PO DAILY 12/10/19 04/23/23 04/23/23 History mecobalamin (vitamin B12) 1,000 1,000 mcg PO DAILY 12/10/19 04/23/23 04/23/23 History mcg chewable tablet tramadol 50 mg tablet 50 mg PO TID PRN Pain 04/07/21 04/23/23 09/18/21 History Power step arch support #2 ea 05/04/21 04/23/23 09/18/21 Rx tizanidine 4 mg capsule 4 mg PO QID PRN muscle spasms 01/04/22 04/23/23 Unknown History fluticasone propionate 50 1 spray intranasal BID 01/26/22 04/23/23 04/23/23 History mcg/actuation nasal spray,suspension nitroglycerin 0.4 mg sublingual 0.4 mg sublingual Q5M PRN Chest 05/22/22 04/23/23 Unknown Rx tablet Pain #25 tabs potassium chloride 20 mEq 20 meq PO BID #180 tabs 05/22/22 04/23/23 04/23/23 Rx tablet,extended release(part/cryst) (Klor-Con M) rosuvastatin 10 mg tablet (Crestor) 10 mg PO DAILY #90 tabs 05/22/22 04/23/23 04/23/23 Rx apixaban 2.5 mg tablet (Eliquis) 2.5 mg PO DAILY 07/30/22 04/23/23 04/23/23 History bumetanide 1 mg tablet 1 mg PO DAILY 07/30/22 04/23/23 04/23/23 History cholecalciferol (vitamin D3) 25 25 mcg PO DAILY 07/30/22 04/23/23 04/23/23 History mcg (1,000 unit) capsule diphenhydramine HCl 25 mg tablet 25 mg PO TID PRN Allergic Symptoms 07/30/22 04/23/23 04/23/23 History (Benadryl Allergy) ketoconazole 2 % shampoo 1 applic topical .2 x weekly #120 09/06/22 04/23/23 Unknown Rx mL mupirocin 2 % topical ointment 1 applic topical BID #15 grams 09/24/22 04/23/23 Unknown Rx ascorbic acid (vitamin C) 500 mg 500 mg PO DAILY #90 caps 09/25/22 04/23/23 04/23/23 Rx capsule anastrozole 1 mg tablet 1 mg PO DAILY #90 tabs 11/26/22 04/23/23 04/23/23 Rx ipratropium 0.5 mg-albuterol 3 mg 3 ml inhalation Q6H PRN wheezing 04/02/23 04/23/23 Unknown Rx (2.5 mg base)/3 mL nebulization #180 mL soln betamethasone dipropionate 0.05 % 1 applic topical BID PRN Rash 04/23/23 04/23/23 Unknown History topical cream hydrocortisone 2.5 % topical cream See Rx Instructions .Route .COMPLEX 04/23/23 04/23/23 Unknown History triamcinolone acetonide 0.1 % See Rx Instructions .Route .COMPLEX 04/23/23 04/23/23 Unknown History topical cream Allergies Allergy/AdvReac Type Severity Reaction Status Date / Time No Known Allergies Allergy Verified 04/01/23 13:25 Current Medications Generic Name Dose Route Start Last Admin Trade Name Freq PRN Reason Stop Dose Admin Acetaminophen 650 mg 04/23/23 15:33 04/24/23 03:00 Acetaminophen 325 Mg Tablet PO 650 mg Q6H PRN Administration Mild/Mod Pain Or Temp >/= 101 Albuterol/Ipratropium 3 ml 04/23/23 20:00 04/25/23 09:31 Ipratropium-Albuterol 3 Ml Neb INHALATION 3 ml TID.RESP SUJATA Administration Ascorbic Acid 500 mg 04/24/23 09:00 04/25/23 09:50 Ascorbic Acid 500 Mg Tablet PO 500 mg DAILY SUJATA Administration Aspirin 81 mg 04/24/23 09:00 04/25/23 10:26 Aspirin 81 Mg Ec Tablet PO Not Given DAILY SUJATA Atorvastatin Calcium 40 mg 04/24/23 09:00 04/25/23 09:50 Atorvastatin 40 Mg Tablet PO 40 mg DAILY SUJATA Administration Citalopram Hydrobromide 20 mg 04/24/23 09:00 04/25/23 09:49 Citalopram 20 Mg Tablet PO 20 mg DAILY SUJATA Administration Donepezil HCl 10 mg 04/24/23 09:00 04/25/23 09:49 Donepezil 5 Mg Tablet PO 10 mg DAILY SUJATA Administration Ferrous Sulfate 325 mg 04/24/23 09:00 04/25/23 09:50 Ferrous Sulfate Ec 325 Mg Tablet PO 325 mg DAILY SUJATA Administration Gabapentin 600 mg 04/24/23 09:00 04/25/23 09:49 Gabapentin 300 Mg Capsule PO 600 mg DAILY SUJATA Administration Gabapentin 900 mg 04/23/23 18:00 04/24/23 17:38 Gabapentin 300 Mg Capsule PO 900 mg QPM SUJATA Administration Hydromorphone HCl 1 mg 04/24/23 11:34 04/24/23 16:20 Hydromorphone 1 Mg/Ml Inj 1 Ml IVP 1 mg Q4H PRN Administration SEVERE PAIN Iron Sucrose 200 mg/ Sodium 110 mls @ 220 mls/hr 04/23/23 17:00 04/24/23 18:29 Chloride IV Infused Q24H SUJATA Infusion Heparin Sodium/Sodium Chloride 25,000 unit in 500 mls @ 0 mls/hr 04/23/23 16:15 04/25/23 00:36 Heparin Drip IV 0 unit/kg/hr .Q0M SUJATA 0 mls/hr Titration Protocol Per Protocol Sodium Chloride 1,000 mls @ 30 mls/hr 04/25/23 12:00 04/25/23 12:15 Sodium Chloride 0.9% IV 04/26/23 11:59 30 mls/hr .Q24H SUJATA Administration Pantoprazole Sodium 40 mg 04/23/23 15:33 04/25/23 03:46 Pantoprazole 40 Mg Sdv IVP 40 mg Q12H SUJATA Administration Sucralfate 1 gm 04/23/23 16:15 04/25/23 04:57 Sucralfate 1 Gm Tablet PO Not Given Q12H SUJATA Vitamin D 1,000 unit 04/24/23 09:00 04/25/23 09:50 Cholecalciferol (Vitamin D3) 1,000 Unit Tablet PO 1,000 unit DAILY SUJATA Administration [facility] Anesthesia Medical History (Updated 04/24/23 @ 21:50 by Blessing Joyner MD) Acute depression Acute on chronic anemia Alzheimer disease B12 deficiency Bradycardia Patient states her heart rate runs in 40s to 50s at home Breast cancer CHF (congestive heart failure) Chronic kidney disease Chronic respiratory failure with hypoxia and hypercapnia COPD (chronic obstructive pulmonary disease) COPD (chronic obstructive pulmonary disease) D-dimer, elevated DVT (deep venous thrombosis) GERD (gastroesophageal reflux disease) Hematoma Small complex fluid lesion adjacent to superficial thrombophlebitis in the left calf, 26 x 10 x 24 mm, History of deep venous thrombosis or pulmonary embolus History of nonmelanoma skin cancer HTN (hypertension) Hyperlipidemia IBS (irritable bowel syndrome) Iron deficiency anemia Leg swelling 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, N0, M0, G1 Muscle spasm Obstructive sleep apnea Presence of IVC filter Pulmonary emboli Rheumatoid arthritis Seasonal allergic rhinitis Superficial thrombophlebitis Tachycardia Varicose veins of left leg with edema Surgical History H/O neck surgery H/O shoulder surgery H/O wrist surgery H/O: knee surgery History of back surgery History of cholecystectomy History of ear surgery History of hysterectomy History of lumpectomy of right breast Family History Father CAD (coronary artery disease) Cancer Mother CAD (coronary artery disease) Brother CAD (coronary artery disease) Sister Cancer Other Diabetes Hyperlipidemia Hypertension Lung disease Psychiatric illness Social History Smoking and tobacco status: former smoker Quit status (tobacco): has quit using tobacco Year quit tobacco: 1995 - 1PPD x 40 Years Alcohol intake: never Substance/Drug Use: never Lives independently: Yes Household members: spouse Marital status: Current occupational status: retired Do you think of yourself as: Straight/Heterosexual Current gender identity: Female Data Anesthesia 04/25/23 03:39 04/25/23 03:39 Short CBC 04/23/23 04/24/23 04/24/23 Range/Units 20:49 05:15 12:40 WBC 6.58 (3.29-11.43) 10^3/uL Hgb 7.30 L 7.50 L 7.50 L (11.27-16.99) g/dL Hct 26.7 L 27.6 L 27.1 L (36-47) % MCV 89.6 (85-98) fl Plt Count 206 (157-399) 10^3/cmm Neut % (Auto) 68.3 % Neut # (Auto) 4.50 (1.8-7.7) 10^3/uL 04/24/23 04/24/23 04/25/23 Range/Units 16:53 19:53 01:25 WBC (3.29-11.43) 10^3/uL Hgb 7.40 L 7.30 L 7.40 L (11.27-16.99) g/dL Hct 26.9 L 27.1 L 26.2 L (36-47) % MCV (85-98) fl Plt Count (157-399) 10^3/cmm Neut % (Auto) % Neut # (Auto) (1.8-7.7) 10^3/uL 04/25/23 Range/Units 03:39 WBC 9.23 (3.29-11.43) 10^3/uL Hgb 7.30 L (11.27-16.99) g/dL Hct 25.8 L (36-47) % MCV 87.8 (85-98) fl Plt Count 328 D (157-399) 10^3/cmm Neut % (Auto) 70.8 % Neut # (Auto) 6.54 (1.8-7.7) 10^3/uL BMP 04/24/23 04/25/23 05:15 03:39 Sodium 140 136 Potassium 4.0 4.0 Chloride 99 95 L Carbon Dioxide 36 H 34 H BUN 17 18 Creatinine 0.9 0.9 Glucose 98 123 H Calcium 7.5 L 7.6 L Cardiac Enzymes 04/23/23 04/23/23 04/23/23 Range/Units 10:50 10:50 16:15 Troponin T Baseline 22 H 20 H (0-10) ng/L Troponin T 120 Minute (0-10) ng/L Delta Troponin T (0-10) ABS# Troponin T Hi Sens 6Hr (0-10) ng/L Troponin T Hi Sens 6Hr Delta (0-12) ng/L NT-Pro-B Natriuret Pep 241 (0-450) pg/mL 04/23/23 04/23/23 Range/Units 18:07 20:49 Troponin T Baseline (0-10) ng/L Troponin T 120 Minute 20.18 H (0-10) ng/L Delta Troponin T 0.18 (0-10) ABS# Troponin T Hi Sens 6Hr 20.99 H (0-10) ng/L Troponin T Hi Sens 6Hr Delta 0.99 (0-12) ng/L NT-Pro-B Natriuret Pep (0-450) pg/mL Liver Function 04/24/23 04/25/23 Range/Units 05:15 03:39 Total Bilirubin 0.4 0.4 (0.15-1.2) mg/dL AST 23 17 (0-32) U/L ALT 11 10 (0-33) U/L Alkaline Phosphatase 64 70 (35-105) U/L Albumin 3.2 L 3.6 (3.5-5.2) g/dL Urine 04/23/23 Range/Units 13:04 Urine Color Yellow (Yellow) Urine Appearance Sl hazy A (CLEAR) Urine pH 9 H (5-7) Ur Specific [place] 1.010 (1.005-1.030) Urine Protein Neg (Negative) Urine Glucose (UA) Norm (Normal) Urine Ketones Negative (Negative) Urine Nitrate Negative (Negative) Urine Bilirubin Neg (Negative) Ur Leukocyte Esterase Negative (Negative) Urine RBC >100 H (0-2) /hpf Urine WBC 0-4 H (0-5) /hpf Blood Bank 04/24/23 12:03 Blood Type O Negative Rho(D) Type Negative Antibody Screen Negative Coags 04/23/23 04/23/23 04/24/23 00:00 10:50 06:54 PT 13.10 INR 0.96 APTT 104.8 H 83.8 H 04/24/23 04/24/23 04/25/23 12:40 19:53 03:39 PT INR APTT 57.8 H 75.7 H 37.1 H D Microbiology 04/23/23 13:04 Urine Culture - Preliminary Urine,Clean Catch Cardiac Studies: Echocardiogram 03/08/22 Echocardiogram Limited Views 06/04/20 Echocardiogram Ultrasound 08/09/20 Sestamibi Stress Test (Cardiology) 03/21/20
[2023-04-25] MEDS: ceFAZolin 2,000 MG in sodium chloride 0.9% (plus) 50 ML 100 MG IV (12:25)
[2023-04-25] MEDS: ceFAZolin 1,000 mg SDV 1000 MG IRRIGATION (13:14)
[2023-04-25] MEDS: vancomycin 1,000 MG SDV 1000 MG XX (14:03)
[2023-04-25] MEDS: BUPivacaine 0.5% INJ 30 mL INJECTION (14:58)
[2023-04-25] MEDS: lidocaine-epi 1% 20 mL INJ INJECTION (14:58)
--- NOTE | 2023-04-25 15:51 | P.OP_ITS ---
Operative Report Date of procedure: April 25, 2023 Pre-op diagnosis: Left periprosthetic distal femur fracture with supracondylar and intercondylar components as well as distal femoral shaft Post-op diagnosis: Left periprosthetic distal femur fracture with supracondylar and intercondylar components as well as distal femoral shaft Post-op findings: Comminution at the fracture site with significant displacement Procedure done: Open reduction internal fixation left periprosthetic distal femur fracture with intercondylar, supracondylar, and distal femoral shaft components Implants: Ted 10 hole distal lateral plate with multiple screws including locking and nonlocking screws. Specimens removed/disposition: None Pathology: none sent Surgeon: Blessing Joyner Cook 3 Pastry: [facility] operating room technicians Anesthesia: General (Intubated, ASA 3) Estimated blood loss (mL): 450 IV fluids (mL): 2,000 (1000 mL crystalloid, and 2 units packed red blood cells for 1000 mL) Urine output (mL): 350 Complications: None Findings: Significant comminution and displacement. Intercondylar and supracondylar extension Condition: stable Disposition: PACU (Then return to floor for postoperative rehabilitation and pain management) Brief History: Maddison Jenkins is a 77 year old female who presented through the emergency department after a fall at home.? The patient was on a retaining wall looking at her rosebushes.? She fell after losing her balance.? She had no reason for her fall other than losing her balance.? At the time of admission, she was noted to have a left femur fracture which is periprosthetic around a total knee arthroplasty.? At the time of admission, right shoulder imaging demonstrated a subtle greater tuberosity fracture.? Patient was admitted from the emergency room with inability to weight-bear and the above diagnoses.? Additionally, patient has diagnosis of anemia for which she was to begin iron infusions, however these have not been started as of yet.? Patient's past medical history is significant for pulmonary embolism, DVT, IVC filter, and COPD.? She is chronically on Eliquis for her history of pulmonary emboli.? She also has chronic sleep apnea, chronic hypoxic respiratory failure, history of GI bleed, and history of anemia. Preoperatively, the patient was educated with regards to the planned procedure. Questions were answered, and consents were signed. The patient agreed to proceed with operative intervention. Her family was also present for this discussion on the day of surgery. Procedure: The patient was brought to the operating theater, and after undergoing adequate general anesthesia, ASA 3, the left lower extremity was prepped and draped in usual fashion. The leg was then draped free with the prepping accomplished with DuraPrep. A surgical pause was performed. At the time of the surgical pause we confirmed the site and side of surgery. Additionally, we confirmed the appropriate and timely administration of preoperative antibiotics. The availability of equipment was confirmed, and the patient's identity was verbalized as well. Following the surgical pause, fluoroscopy was utilized to identify the fracture. A plate was placed along the outside of the leg to determine appropriate length of the plate. Initially, we had chosen a size 8 hole, however, we increased to a size 10 hole lateral Ted plate after the fracture was reduced. An incision was made from slightly distal to the lateral femoral condyle to mid thigh, with the incision length determined by the plate length. Incision continued through skin and subcutaneous tissues using a scalpel and stasis obtained using electrocautery. Iliotibial band was incised longitudinally to allow access to the lateral femur. The fracture was entered, and hematoma was removed from around the fracture. Fracture was evaluated, and subsequently it was reduced with clamps and evaluated with x-ray. It was apparent that we could reduce the fracture nearly anatomically. At that point, the clamps had to be released to allow placement of the plate. Fluoroscopy was used to determine whether the plate was in appropriate position both proximal and distal as well as anterior posterior. Once the plate was in position and could be held appropriately for fracture repair, it was clamped in place. The plate was attached to the femur using a combination of locking and nonlocking screws. Length of the screws as well as position of the plate in the AP plane was evaluated with fluoroscopy. Once enough screws have been placed, clamps were removed and screw fixation continued. The fracture was bridged with the plate. Screws were placed primarily in the distal femur and also proximally. After the plate had been attached in appropriate position, the wound was copiously irrigated. It was suctioned dry. Attention was then directed to closure. Local anesthetic was injected about the skin. Prior to closure of the subcutaneous tissues, a combination of vancomycin powder and Surgiflo was placed in position as well. Closure was accomplished with 0 Vicryl in the fascial tissues, 2-0 Monocryl was used in the subcutaneous tissues, and the skin was closed with 3-0 Monocryl. A sterile dressing was then placed consisting of Dermabond Prineo, Silverlon, sterile soft roll, and an Cedric wrap. The patient was returned the Recovery Room in a satisfactory condition. X-rays were obtained intraoperatively, and these were not repeated in the recovery room. The patient will be discharged to the floor for postoperative rehabilitation and pain management. There were no specimens and no complications. Related Problem List Diagnoses (1) Periprosthetic fracture around internal prosthetic left knee joint: (2) Supracondylar fracture of left femur:
--- NOTE | 2023-04-25 16:14 | ANE.PACU2 ---
Inpatient post-anesthesia follow up: Airway intact: Yes Vital signs: Temperature 97.1 F Pulse Rate 83 Respiratory Rate 16 Blood Pressure 145/55 Pulse Oximetry 91 Oxygen Delivery Me thod Nasal Cannula Oxygen Flow Rate 4 Fraction of Inspir ed Oxygen Hydration adequate: Yes Nausea and vomiting: No Pain level: 2 Mental status: Baseline
--- NOTE | 2023-04-25 16:23 | P.PN_ITS ---
Subjective Subjective: Patient taken to the OR today for open reduction internal fixation. Medications: Reviewed: Yes Vitals/I&O/Wt Last Vital Signs Temp 97.1 F L 04/25/23 16:05 Pulse 83 04/25/23 16:05 Resp 16 04/25/23 16:05 BP 145/55 04/25/23 16:05 Pulse Ox 91 04/25/23 16:05 O2 Del Method Nasal Cannula 04/25/23 16:05 O2 Flow Rate 4 04/25/23 16:05 04/25/23 04/25/23 04/25/23 06:59 14:59 22:59 Intake Total 31.75 / 1920.572 850 / 850 0 / 850 Output Total 800 / 800 Balance 31.75 / 920.572 850 / 850 -800 / 50 Physical Exam Narrative: General: No acute distress HEENT: PERRLA, pupils bilaterally equal and reactive, pallors not present Chest: Normal vesicular breath sounds, no added sounds, equal good air entry bilaterally CVS: S1-S2 regular, no murmurs, no tachycardia, no gallops, no rubs Abdomen: Soft, nontender, no organomegaly, bowel sounds present Neuro: No focal deficits, no facial deformity, AO x3, power 5/5 in all limbs Urinary Catheter Management: Teresa Latex Free: Cath Placed During This Visit: yes Reason for Continuing Indwelling Catheter: Other Urinary Catheter Date of Insertion: 04/23/23 Urinary Catheter Time of Insertion: 13:06 Data 04/25/23 03:39 04/25/23 03:39 Micro: Microbiology 04/23/23 13:04 Urine Culture - Preliminary Urine,Clean Catch A&P Assessment and plan (1) Supracondylar fracture of left femur: Qualifiers: Encounter type: initial encounter Fracture type: closed Qualified Code(s): S72.452A - Displaced supracondylar fracture without intracondylar extension of lower end of left femur, initial encounter for closed fracture (2) Closed fracture of greater tuberosity of humerus: Qualifiers: Encounter type: initial encounter Fracture alignment: nondisplaced Laterality: right Qualified Code(s): S42.254A - Nondisplaced fracture of greater tuberosity of right humerus, initial encounter for closed fracture (3) Chronic anemia: (4) Iron deficiency anemia: (5) CHF (congestive heart failure): (6) GI bleed: Qualifiers: GI bleed type/associated pathology: unspecified gastrointestinal hemorrhage type Qualified Code(s): K92.2 - Gastrointestinal hemorrhage, unspecified (7) History of deep venous thrombosis or pulmonary embolus: (8) Malignant neoplasm of upper-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 kapadia consulted by ER provider COPD -on 3L -not in exacerbation Chronic anemia, with iron defeciency anemia ? Has had EGDs without significant findings according to patient, has had a capsule endoscopy without significant findings, has had a colonoscopy with multiple polyps some precancerous this was multiple years ago, has not had any imaging since then, possible slow GI bleed -has not received iron infusions -will transfuse IV iron -monitor hgb -Protonix, Carafate, monitor hemoglobin every 4 hours ? If develop anemia less than 7 then will likely stop heparin drip transfuse, and likely consult general surgery for EGD colonoscopy, if no significant source of bleeding is found then we will likely have to hold anticoagulation indefinitely, this will be a difficult decision as she has a high risk of hype rcoagulable events given her femur fracture relative immobility, recent surgery for her hip as above, Fluid overload -1 dose lasix -hold fluid therapy chronic respiratory failure FARNAZ, cpap Enlarged lymph nodes, left arm, left axilla, will need to follow-up outpatient with mammogram, ultrasound scd for dvt prophylaxis dnr/dni Attestations Medical Necessity Statement*: Planned ORIF today Coding Level of Care Code Acute Code for Chg Fwd Diagnoses Supracondylar fracture of left femur S72.452A Encounter type: initial encounter Fracture type: closed Closed fracture of greater tuberosity of humerus S42.254A Encounter type: initial encounter Fracture alignment: nondisplaced Laterality: right Chronic anemia D64.9 Iron deficiency anemia D50.9 CHF (congestive heart failure) I50.9 GI bleed K92.2 GI bleed type/associated pathology: unspecified gastrointestinal hemorrhage type History of deep venous thrombosis or pulmonary embolus 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
[2023-04-25 16:29] LABS: Glucose Point of Care 155 mg/dL (70-110)
[2023-04-25 21:56] LABS: Basophils % 0.3 %; Eosinophils % 0.1 %; Hematocrit 30.7 % (36-47); Lymphocytes # 0.3 10^3/uL (0.8-4.8); Lymphocytes % 2.7 %; Mean Corpuscular HGB Conc 29.3 g/dL (30-55); Mean Corpuscular Hemoglobin 26.1 pg (27-33); Mean Platelet Volume 9.5 fL (7.4-10.4); Monocytes # 0.7 10^3/uL (0.2-0.9); Monocytes % 7.1 %; Neutrophils # 9.19 10^3/uL (1.8-7.7); Neutrophils % 88.8 %; Nucleated Red Blood Cells # 0.1 /100WBC; Nucleated Red Blood Cells % 1.2 %; Platelet Count 203 10^3/cmm (157-399); Red Blood Count 3.45 10^6/uL (3.85-5.65); Red Cell Distribution Width 18.8 % (12.1-15.1); White Blood Count 10.35 10^3/uL (3.29-11.43)
[2023-04-26] VITALS (11 sets, daily range): BP systolic 120–135; BP diastolic 58–68; PULSE 62–79; RESP 16–19; TEMP 36.4–36.7; O2SAT 94–98
[2023-04-26] MEDS: pantoprazole 40 mg SDV IVP ×2 (04:04→16:44)
[2023-04-26] MEDS: sucralfate 1 gm Tablet PO ×2 (04:04→16:45)
[2023-04-26 04:17] LABS: Basophils % 0.2 %; Eosinophils % 0.2 %; Hematocrit 30.2 % (36-47); Lymphocytes # 0.4 10^3/uL (0.8-4.8); Lymphocytes % 3.7 %; Mean Corpuscular HGB Conc 29.1 g/dL (30-55); Mean Corpuscular Hemoglobin 26.3 pg (27-33); Mean Corpuscular Volume 90.1 fl (85-98); Mean Platelet Volume 9.2 fL (7.4-10.4); Monocytes # 1.2 10^3/uL (0.2-0.9); Monocytes % 12.8 %; Neutrophils % 82.2 %; Nucleated Red Blood Cells # 0.1 /100WBC; Nucleated Red Blood Cells % 0.6 %; Platelet Count 210 10^3/cmm (157-399); Red Blood Count 3.35 10^6/uL (3.85-5.65); Red Cell Distribution Width 19.3 % (12.1-15.1); White Blood Count 9.37 10^3/uL (3.29-11.43)
[2023-04-26 04:29] LABS: Partial Thromboplastin Time 50.1 SECONDS (23.9-36.7)
[2023-04-26 04:36] LABS: Alanine Aminotransferase 6 U/L (0-33); Albumin Level 2.9 g/dL (3.5-5.2); Alkaline Phosphatase 58 U/L (35-105); Anion Gap 11.7 (5-19); Aspartate Amino Transferase 25 U/L (0-32); Blood Urea Nitrogen 21 mg/dL (8-23); Calcium 6.6 mg/dL (8.5-10.5); Carbon Dioxide 31 mmol/L (22-29); Chloride 105 mmol/L (98-107); Creatinine Clr Calc Pharmacy 55.2725; Globulin 2.5 g/dL (1.3-4.6); Glucose 173 mg/dL (65-115); Magnesium 2.4 mg/dL (1.7-2.3); Osmolality Calculated 303 mOsm/kg (285-295); Phosphorus 3.3 mg/dL (2.5-4.5); Potassium 4.7 mmol/L (3.5-5.1); Sodium 143 mmol/L (136-145); Total Bilirubin 0.5 mg/dL (0.15-1.2); Total Protein 5.4 g/dL (6.6-8.7)
[2023-04-26] MEDS: donepezil 5 MG Tablet 10 MG PO (08:12)
[2023-04-26] MEDS: cholecalciferol (vitamin D3) 1,000 unit Tablet 1000 UNIT PO (08:12)
[2023-04-26] MEDS: ascorbic acid 500 mg Tablet PO (08:13)
[2023-04-26] MEDS: atorvastatin 40 mg Tablet PO (08:13)
[2023-04-26] MEDS: citalopram 20 mg Tablet PO (08:13)
[2023-04-26] MEDS: ferrous sulfate EC 325 mg Tablet PO (08:13)
[2023-04-26] MEDS: aspirin 81 mg EC Tablet PO (08:13)
[2023-04-26] MEDS: gabapentin 300 mg Capsule 600 MG PO (08:13)
[2023-04-26] MEDS: ipratropium-albuterol 3 mL Neb INHALATION ×3 (09:11→20:16)
[2023-04-26] MEDS: oxyCODONE 5 mg IR Tab/Cap PO ×2 (09:46→13:22)
--- NOTE | 2023-04-26 10:14 | PC.SOCIAL ---
IMM update IMM updated with patient. Verbalized an understanding. Copy pg 2 provided. Initialled, dated, timed, and placed in chart.
[2023-04-26 11:13] LABS: Partial Thromboplastin Time 41.2 SECONDS (23.9-36.7)
[2023-04-26] MEDS: acetaminophen 500 mg Tablet 1000 MG PO ×2 (11:23→19:15)
[2023-04-26] MEDS: ceFAZolin 2,000 MG in sodium chloride 0.9% (plus) 50 ML 100 MG IV ×2 (11:26→19:16)
--- NOTE | 2023-04-26 13:36 | PM.PN ---
Subjective Subjective: The patient has been off of physical therapy. When she is seen at noon time, she is sitting up in a chair. She is nonweightbearing to the left knee and minimal weightbearing to the right shoulder. She is advised this will make her rehabilitation difficult. Medications: Reviewed: Yes Vitals/I&O/Wt Last Vital Signs Temp 97.7 F 04/26/23 03:30 Pulse 71 04/26/23 13:05 Resp 18 04/26/23 13:22 BP 124/62 04/26/23 03:30 Pulse Ox 97 04/26/23 13:05 O2 Del Method Nasal Cannula 04/26/23 13:05 O2 Flow Rate 3 04/26/23 13:05 04/25/23 04/26/23 04/26/23 22:59 06:59 14:59 Intake Total 110 / 960 105 / 1065 953.867 / 953.867 Output Total 1550 / 1550 300 / 1850 Balance -1440 / -590 -195 / -785 953.867 / 953.867 Physical Exam Const: COMMON NORMALS: no acute distress, average body habitus, patient oriented x3 and alert GENERAL APPEARANCE: cooperative and comfortable ORIENTATION/CONSCIOUSNESS: Yes awake HENMT: COMMON NORMALS: normocephalic and atraumatic HEAD & SCALP: normocephalic and atraumatic Eye: GENERAL EYE: appearance normal, both eyes and all related structures Chest: COMMONS NORMALS: normal inspection of the chest Resp: COMMON NORMALS: normal respiratory effort EFFORT & INSPECTION: Yes able to speak in complete sentences and Yes symmetric chest movement Extremity: LEFT LOWER EXTREMITY: Yes knee joint (Large outer dressing is removed.) Left knee: Yes inspection (OpSite is dry and intact.), Yes palpation (Minimal tenderness.), Yes ROM (Not evaluated.) and Yes neurovascular exam (Intact with no evidence of DVT) Neuro: COMMON NORMALS: patient oriented x3 SENSORIUM/ORIENTATION: Yes alert Psych: COMMON NORMALS: mental status grossly normal APPEARANCE: Yes grossly normal ATTITUDE: Yes calm and Yes engaged ATTENTION/CONCENTRATION: Yes attention grossly intact Skin: COMMON NORMALS: no rashes or lesions noted GENERAL SKIN EXAM: no rashes or lesions noted Urinary Catheter Management: Teresa Latex Free: Cath Placed During This Visit: yes, but has since been removed by the nurse Reason for Continuing Indwelling Catheter: Decision to DC Catheter Urinary Catheter Date of Insertion: 04/23/23 Urinary Catheter Time of Insertion: 13:06 Date Urinary Catheter Removed: 04/26/23 Time Urinary Catheter Discontinued: 06:46 Data 04/26/23 04:10 04/26/23 04:10 Micro: Microbiology 04/23/23 13:04 Urine Culture - Final Urine,Clean Catch A&P Assessment and plan (1) Periprosthetic fracture around internal prosthetic left knee joint: Patient presented with a left intercondylar, supracondylar, and distal femur periprosthetic fracture which was comminuted and displaced. She underwent open reduction internal fixation yesterday with a long sideplate. The surgery was successful and the patient is able to get up to a chair today. She is nonweightbearing to the left lower extremity and is in a knee immobilizer. Additionally, she has a nondisplaced greater tuberosity fracture, and she is to be minimally weightbearing on the shoulder. This will make her rehab quite complex. She is in agreement with group home and will be evaluated for transfer hopefully to [place]. Qualifiers: Encounter type: initial encounter Qualified Code(s): M97.12XA - Periprosthetic fracture around internal prosthetic left knee joint, initial encounter (2) Supracondylar fracture of left femur: Qualifiers: Encounter type: initial encounter Fracture type: closed Qualified Code(s): S72.452A - Displaced supracondylar fracture without intracondylar extension of lower end of left femur, initial encounter for closed fracture Attestations Medical Necessity Statement*: Patient requires inpatient services for mobility following ORIF periprosthetic fracture. Coding Level of Care Code Acute Code for [facility] Diagnoses Periprosthetic fracture around internal prosthetic left knee joint M97.12XA Encounter type: initial encounter Supracondylar fracture of left femur S72.452A Encounter type: initial encounter Fracture type: closed
--- NOTE | 2023-04-26 16:11 | PM.PN ---
Subjective Subjective: Reports that her pain is well controlled. She has not been out of bed since surgery. Asking if physical therapy is going to work with her. Vitals/I&O/Wt Last Vital Signs Temp 97.5 F L 04/26/23 12:00 Pulse 71 04/26/23 13:05 Resp 18 04/26/23 13:22 BP 130/61 04/26/23 12:00 Pulse Ox 97 04/26/23 14:38 O2 Del Method Nasal Cannula 04/26/23 14:38 O2 Flow Rate 3 04/26/23 14:38 04/26/23 04/26/23 04/26/23 06:59 14:59 22:59 Intake Total 105 / 1065 1363.867 / 1363.867 Output Total 300 / 1850 Balance -195 / -785 1363.867 / 1363.867 Physical Exam Narrative: General: Cooperative patient in no apparent distress. Well developed. HEENT: Normocephalic, Atraumatic. External ears normal. Nasal passages patent without drainage. MMM. Heart: Normal rate with irregular rhythm. Resp: LCTA. No respiratory distress, no use of accessory muscles. Abd: Soft, non-tender. Non-distended. Extremities: No edema. Skin: No rash or lesions on exposed areas. Neuro: No focal motor or sensory loss. Urinary Catheter Management: Teresa Latex Free: Cath Placed During This Visit: yes, but has since been removed by the nurse Reason for Continuing Indwelling Catheter: Decision to DC Catheter Urinary Catheter Date of Insertion: 04/23/23 Urinary Catheter Time of Insertion: 13:06 Date Urinary Catheter Removed: 04/26/23 Time Urinary Catheter Discontinued: 06:46 Data 04/26/23 04:10 04/26/23 04:10 Micro: Microbiology 04/23/23 13:04 Urine Culture - Final Urine,Clean Catch A&P Assessment and plan (1) Supracondylar fracture of left femur: Qualifiers: Encounter type: initial encounter Fracture type: closed Qualified Code(s): S72.452A - Displaced supracondylar fracture without intracondylar extension of lower end of left femur, initial encounter for closed fracture (2) Closed fracture of greater tuberosity of humerus: Qualifiers: Encounter type: initial encounter Fracture alignment: nondisplaced Laterality: right Qualified Code(s): S42.254A - Nondisplaced fracture of greater tuberosity of right humerus, initial encounter for closed fracture (3) Chronic anemia: (4) Iron deficiency anemia: (5) CHF (congestive heart failure): (6) GI bleed: Qualifiers: GI bleed type/associated pathology: unspecified gastrointestinal hemorrhage type Qualified Code(s): K92.2 - Gastrointestinal hemorrhage, unspecified (7) History of deep venous thrombosis or pulmonary embolus: (8) Malignant neoplasm of upper-outer quadrant of right female breast: (9) Fluid overload: (10) COPD (chronic obstructive pulmonary disease): (11) Enlarged lymph nodes: Plan 77-year-old female admitted for left femur fracture s/p ORIF repair. Continue close inpatient monitoring. Currently on heparin for VTE prophylaxis. We will transition back to home Eliquis dose when ok with ortho. Appreciate ortho recommendations. PT/OT to eval and treat. O2 protocol. currently using around 3 L nasal cannula. Pain is currently well controlled. Has oxycodone available. Hemoglobin is currently 8.8. She is receiving iron transfusion daily. Continue Protonix and Carafate. Recheck a.m. labs. Consider GI referral for endoscopy due to history of GI bleed and chronic anemia. Continue home medications for other chronic medical. Code Status: DNR/DNI IVF: None DVT PPx: Eliquis GI PPx: Protonix, Carafate ABx: Cefazolin Diet: Clear liquid Discharge plan: TBD. May require HH or SNF on discharge. Attestations Medical Necessity Statement*: Will need continued hospitalization for physical and occupational therapies, IV antibiotics, iron transfusion and recheck of labs. Coding Level of Care Code Acute Code for Chg Fwd Moderate MDM includes number and complexity of problems actively addressed during encounter, amount and/or complexity of data reviewed/ordered and described risk of complication, morbidity or mortality of management as documented Diagnoses Supracondylar fracture of left femur S72.452A Encounter type: initial encounter Fracture type: closed Closed fracture of greater tuberosity of humerus S42.254A Encounter type: initial encounter Fracture alignment: nondisplaced Laterality: right Chronic anemia D64.9 Iron deficiency anemia D50.9 CHF (congestive heart failure) I50.9 GI bleed K92.2 GI bleed type/associated pathology: unspecified gastrointestinal hemorrhage type History of deep venous thrombosis or pulmonary embolus 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
[2023-04-26 18:24] LABS: Partial Thromboplastin Time 48.4 SECONDS (23.9-36.7)
[2023-04-26] MEDS: gabapentin 300 mg Capsule 900 MG PO (19:12)
[2023-04-26] MEDS: iron sucrose 200 MG in sodium chloride 0.9% (100 ml) 100 ML 220 MG IV (20:21)
[2023-04-27] VITALS (10 sets, daily range): BP systolic 112–146; BP diastolic 54–70; PULSE 63–97; RESP 16–20; TEMP 36.2–36.8; O2SAT 93–99
[2023-04-27] MEDS: heparin drip 25,000 UNIT/500 ML PREMIX 19 UNIT IV (03:11)
[2023-04-27] MEDS: acetaminophen 500 mg Tablet 1000 MG PO ×3 (03:11→17:24)
[2023-04-27] MEDS: ceFAZolin 2,000 MG in sodium chloride 0.9% (plus) 50 ML 100 MG IV (03:11)
[2023-04-27] MEDS: pantoprazole 40 mg SDV IVP ×2 (03:12→16:14)
[2023-04-27 03:14] LABS: Basophils % 0.3 %; Eosinophils # 0.2 10^3/uL (0.0-0.8); Eosinophils % 2.3 %; Lymphocytes # 0.4 10^3/uL (0.8-4.8); Lymphocytes % 5.6 %; Mean Corpuscular HGB Conc 28.7 g/dL (30-55); Mean Corpuscular Hemoglobin 26.1 pg (27-33); Mean Corpuscular Volume 91.2 fl (85-98); Mean Platelet Volume 8.5 fL (7.4-10.4); Monocytes # 1.4 10^3/uL (0.2-0.9); Monocytes % 17.2 %; Neutrophils # 5.84 10^3/uL (1.8-7.7); Neutrophils % 73.8 %; Nucleated Red Blood Cells % 0.5 %; Platelet Count 207 10^3/cmm (157-399); Red Blood Count 3.29 10^6/uL (3.85-5.65); Red Cell Distribution Width 20.2 % (12.1-15.1)
[2023-04-27] MEDS: sucralfate 1 gm Tablet PO ×2 (03:15→16:14)
[2023-04-27 03:27] LABS: Partial Thromboplastin Time 64.3 SECONDS (23.9-36.7)
[2023-04-27 03:34] LABS: Alanine Aminotransferase 8 U/L (0-33); Alkaline Phosphatase 56 U/L (35-105); Anion Gap 8.1 (5-19); Aspartate Amino Transferase 19 U/L (0-32); Blood Urea Nitrogen 25 mg/dL (8-23); Calcium 7.2 mg/dL (8.5-10.5); Carbon Dioxide 33 mmol/L (22-29); Chloride 97 mmol/L (98-107); Creatinine Clr Calc Pharmacy 55.2725; Globulin 2.3 g/dL (1.3-4.6); Glucose 121 mg/dL (65-115); Osmolality Calculated 284 mOsm/kg (285-295); Potassium 4.1 mmol/L (3.5-5.1); Sodium 134 mmol/L (136-145); Total Bilirubin 0.4 mg/dL (0.15-1.2); Total Protein 5.3 g/dL (6.6-8.7)
[2023-04-27] MEDS: ipratropium-albuterol 3 mL Neb INHALATION ×3 (08:18→19:19)
[2023-04-27] MEDS: cholecalciferol (vitamin D3) 1,000 unit Tablet 1000 UNIT PO (08:56)
[2023-04-27] MEDS: aspirin 81 mg EC Tablet PO (08:56)
[2023-04-27] MEDS: citalopram 20 mg Tablet PO (08:56)
[2023-04-27] MEDS: atorvastatin 40 mg Tablet PO (08:57)
[2023-04-27] MEDS: donepezil 5 MG Tablet 10 MG PO (08:57)
[2023-04-27] MEDS: gabapentin 300 mg Capsule 600 MG PO (08:57)
[2023-04-27] MEDS: apixaban 5 mg Tablet 2.5 MG PO ×2 (08:57→17:24)
[2023-04-27] MEDS: ascorbic acid 500 mg Tablet PO (08:57)
[2023-04-27] MEDS: ferrous sulfate EC 325 mg Tablet PO (08:57)
[2023-04-27 10:08] LABS: Partial Thromboplastin Time 49.7 SECONDS (23.9-36.7)
[2023-04-27] MEDS: docusate sodium 100 mg Capsule PO ×2 (12:08→17:24)
--- NOTE | 2023-04-27 13:45 | PM.PN ---
Subjective Subjective: Feels better today. Pain is well controlled. Passing gas, but has not had a BM yet. Was able to work with therapies yesterday some. Up in chair this morning. Vitals/I&O/Wt Last Vital Signs Temp 97.1 F L 04/27/23 12:00 Pulse 70 04/27/23 12:00 Resp 20 H 04/27/23 12:00 BP 119/56 04/27/23 12:00 Pulse Ox 98 04/27/23 12:00 O2 Del Method Nasal Cannula 04/27/23 12:00 O2 Flow Rate 3 04/27/23 08:18 04/26/23 04/27/23 04/27/23 22:59 06:59 14:59 Intake Total 777.4 / 2141.267 161.983 / 2303.250 720 / 720 Balance 777.4 / 2141.267 161.983 / 2303.250 720 / 720 Physical Exam Narrative: General: Cooperative patient in no apparent distress. Well developed. HEENT: Normocephalic, Atraumatic. External ears normal. Nasal passages patent without drainage. MMM. Heart: Normal rate with irregular rhythm. Resp: LCTA. No respiratory distress, no use of accessory muscles. Abd: Soft, non-tender. Non-distended. Extremities: No edema. Skin: No rash or lesions on exposed areas. Neuro: No focal motor or sensory loss. Urinary Catheter Management: Teresa Latex Free: Cath Placed During This Visit: yes, but has since been removed by the nurse Reason for Continuing Indwelling Catheter: Decision to DC Catheter Urinary Catheter Date of Insertion: 04/23/23 Urinary Catheter Time of Insertion: 13:06 Date Urinary Catheter Removed: 04/26/23 Time Urinary Catheter Discontinued: 06:46 Data 04/27/23 03:05 04/27/23 03:05 Micro: Microbiology 04/23/23 13:04 Urine Culture - Final Urine,Clean Catch A&P Assessment and plan (1) Supracondylar fracture of left femur: Qualifiers: Encounter type: initial encounter Fracture type: closed Qualified Code(s): S72.452A - Displaced supracondylar fracture without intracondylar extension of lower end of left femur, initial encounter for closed fracture (2) Closed fracture of greater tuberosity of humerus: Qualifiers: Encounter type: initial encounter Fracture alignment: nondisplaced Laterality: right Qualified Code(s): S42.254A - Nondisplaced fracture of greater tuberosity of right humerus, initial encounter for closed fracture (3) Chronic anemia: (4) Iron deficiency anemia: (5) CHF (congestive heart failure): (6) GI bleed: Qualifiers: GI bleed type/associated pathology: unspecified gastrointestinal hemorrhage type Qualified Code(s): K92.2 - Gastrointestinal hemorrhage, unspecified (7) History of deep venous thrombosis or pulmonary embolus: (8) Malignant neoplasm of upper-outer quadrant of right female breast: (9) Fluid overload: (10) COPD (chronic obstructive pulmonary disease): (11) Enlarged lymph nodes: Plan 77-year-old female admitted for left femur fracture s/p ORIF repair. Continue close inpatient monitoring. Heparin stopped. Restarted home Eliquis dose. Appreciate ortho recommendations. Continue PT/OT. O2 protocol. currently using around 3 L nasal cannula. Pain is currently well controlled. Has oxycodone available. Hemoglobin is currently 8.6. stable. She is receiving iron transfusion daily. Continue Protonix and Carafate. Will add docusate BID for bowel regimen. Recheck a.m. labs. Ok to advance diet to regular. If no BM in next 24-48, will reassess. Consider GI referral for endoscopy due to history of GI bleed and chronic anemia. Will monitor for now and continue Iron supplementation. Continue home medications for other chronic medical. Code Status: DNR/DNI IVF: None DVT PPx: Eliquis GI PPx: Protonix, Carafate ABx: Cefazolin Diet: Regular Discharge plan: TBD. May require HH or SNF on discharge. Attestations Medical Necessity Statement*: Will need continued hospitalization for physical and occupational therapies, IV antibiotics, iron transfusion and recheck of labs. Coding Level of Care Code Acute Code for Chg Fwd Moderate MDM includes number and complexity of problems actively addressed during encounter, amount and/or complexity of data reviewed/ordered and described risk of complication, morbidity or mortality of management as documented Diagnoses Supracondylar fracture of left femur S72.452A Encounter type: initial encounter Fracture type: closed Closed fracture of greater tuberosity of humerus S42.254A Encounter type: initial encounter Fracture alignment: nondisplaced Laterality: right Chronic anemia D64.9 Iron deficiency anemia D50.9 CHF (congestive heart failure) I50.9 GI bleed K92.2 GI bleed type/associated pathology: unspecified gastrointestinal hemorrhage type History of deep venous thrombosis or pulmonary embolus 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
[2023-04-27] MEDS: gabapentin 300 mg Capsule 900 MG PO (17:24)
[2023-04-27] MEDS: oxyCODONE 5 mg IR Tab/Cap PO (21:35)
[2023-04-27] MEDS: iron sucrose 200 MG in sodium chloride 0.9% (100 ml) 100 ML 220 MG IV (21:36)
[2023-04-28] VITALS (9 sets, daily range): BP systolic 118–129; BP diastolic 47–64; PULSE 60–68; RESP 16–17; TEMP 36.5–36.9; O2SAT 96–98
[2023-04-28] MEDS: sucralfate 1 gm Tablet PO ×2 (03:28→16:44)
[2023-04-28] MEDS: acetaminophen 500 mg Tablet 1000 MG PO ×3 (03:28→20:45)
[2023-04-28] MEDS: pantoprazole 40 mg SDV IVP ×2 (03:53→16:44)
[2023-04-28] MEDS: ipratropium-albuterol 3 mL Neb INHALATION ×2 (09:11→13:50)
[2023-04-28 09:14] LABS: Basophils # 0.1 10^3/uL (0.0-0.1); Basophils % 0.8 %; Eosinophils # 0.4 10^3/uL (0.0-0.8); Hematocrit 29.1 % (36-47); Lymphocytes # 0.3 10^3/uL (0.8-4.8); Lymphocytes % 5.3 %; Mean Corpuscular HGB Conc 28.2 g/dL (30-55); Mean Corpuscular Hemoglobin 26.6 pg (27-33); Mean Corpuscular Volume 94.5 fl (85-98); Mean Platelet Volume 9.1 fL (7.4-10.4); Monocytes % 15.8 %; Neutrophils # 4.39 10^3/uL (1.8-7.7); Neutrophils % 70.1 %; Nucleated Red Blood Cells # 0.1 /100WBC; Nucleated Red Blood Cells % 0.8 %; Platelet Count 214 10^3/cmm (157-399); Red Blood Count 3.08 10^6/uL (3.85-5.65); Red Cell Distribution Width 21.3 % (12.1-15.1); White Blood Count 6.26 10^3/uL (3.29-11.43)
[2023-04-28] MEDS: cholecalciferol (vitamin D3) 1,000 unit Tablet 1000 UNIT PO (09:25)
[2023-04-28] MEDS: docusate sodium 100 mg Capsule PO ×2 (09:25→16:44)
[2023-04-28] MEDS: ferrous sulfate EC 325 mg Tablet PO (09:26)
[2023-04-28] MEDS: apixaban 5 mg Tablet 2.5 MG PO ×2 (09:26→16:45)
[2023-04-28] MEDS: aspirin 81 mg EC Tablet PO (09:27)
[2023-04-28] MEDS: ascorbic acid 500 mg Tablet PO (09:27)
[2023-04-28] MEDS: citalopram 20 mg Tablet PO (09:27)
[2023-04-28] MEDS: gabapentin 300 mg Capsule 600 MG PO (09:27)
[2023-04-28] MEDS: atorvastatin 40 mg Tablet PO (09:27)
[2023-04-28] MEDS: donepezil 5 MG Tablet 10 MG PO (09:27)
[2023-04-28] MEDS: oxyCODONE 5 mg IR Tab/Cap PO ×2 (09:29→16:46)
[2023-04-28 09:44] LABS: Alanine Aminotransferase < 5 U/L (0-33); Albumin Level 2.8 g/dL (3.5-5.2); Alkaline Phosphatase 64 U/L (35-105); Anion Gap 7.9 (5-19); Aspartate Amino Transferase 20 U/L (0-32); Blood Urea Nitrogen 18 mg/dL (8-23); Calcium 7.1 mg/dL (8.5-10.5); Carbon Dioxide 33 mmol/L (22-29); Chloride 103 mmol/L (98-107); Creatinine Clr Calc Pharmacy 55.2725; Globulin 2.5 g/dL (1.3-4.6); Glucose 128 mg/dL (65-115); Osmolality Calculated 294 mOsm/kg (285-295); Potassium 3.9 mmol/L (3.5-5.1); Sodium 140 mmol/L (136-145); Total Bilirubin 0.5 mg/dL (0.15-1.2); Total Protein 5.3 g/dL (6.6-8.7)
--- NOTE | 2023-04-28 11:24 | P.PN_ITS ---
Subjective Subjective: Reports she is doing well. Has been up and walking some with physical therapy. Reports her pain is well controlled. Would like to go to SNF on discharge for short stay for rehab. Vitals/I&O/Wt Last Vital Signs Temp 98.5 F 04/28/23 08:00 Pulse 63 04/28/23 09:19 Resp 16 04/28/23 09:11 BP 126/47 04/28/23 08:00 Pulse Ox 98 04/28/23 09:11 O2 Del Method Nasal Cannula 04/28/23 09:11 O2 Flow Rate 3 04/28/23 09:11 04/27/23 04/28/23 04/28/23 22:59 06:59 14:59 Intake Total 890.517 / 1610.517 Output Total 900 / 900 600 / 1500 Balance -9.483 / 710.517 -600 / 110.517 Physical Exam Narrative: General: Cooperative patient in no apparent distress. Well developed. HEENT: Normocephalic, Atraumatic. External ears normal. Nasal passages patent without drainage. MMM. Heart: Normal rate with irregular rhythm. Resp: LCTA. No respiratory distress, no use of accessory muscles. Abd: Soft, non-tender. Non-distended. Extremities: No edema. Skin: No rash or lesions on exposed areas. Neuro: No focal motor or sensory loss. Urinary Catheter Management: Teresa Latex Free: Cath Placed During This Visit: yes, but has since been removed by the nurse Reason for Continuing Indwelling Catheter: Decision to DC Catheter Urinary Catheter Date of Insertion: 04/23/23 Urinary Catheter Time of Insertion: 13:06 Date Urinary Catheter Removed: 04/26/23 Time Urinary Catheter Discontinued: 06:46 Data 04/28/23 08:51 04/28/23 08:51 A&P Assessment and plan (1) Supracondylar fracture of left femur: Qualifiers: Encounter type: initial encounter Fracture type: closed Qualified Code(s): S72.452A - Displaced supracondylar fracture without intracondylar extension of lower end of left femur, initial encounter for closed fracture (2) Closed fracture of greater tuberosity of humerus: Qualifiers: Encounter type: initial encounter Fracture alignment: nondisplaced Laterality: right Qualified Code(s): S42.254A - Nondisplaced fracture of greater tuberosity of right humerus, initial encounter for closed fracture (3) Chronic anemia: (4) Iron deficiency anemia: (5) CHF (congestive heart failure): (6) GI bleed: Qualifiers: GI bleed type/associated pathology: unspecified gastrointestinal hemorrhage type Qualified Code(s): K92.2 - Gastrointestinal hemorrhage, unspecified (7) History of deep venous thrombosis or pulmonary embolus: (8) Malignant neoplasm of upper-outer quadrant of right female breast: (9) Fluid overload: (10) COPD (chronic obstructive pulmonary disease): (11) Enlarged lymph nodes: Plan 77-year-old female admitted for left femur fracture s/p ORIF repair. Continue close inpatient monitoring. Appreciate ortho recommendations. Continue PT/OT. O2 protocol. currently using around 3 L nasal cannula. Pain is currently well controlled. Has oxycodone available. Continue bowel regimen. She is passing gas. Reports she has not had a bowel movement since surgery. She says that she does feel she may be able to. Continue Protonix and Carafate. Recheck a.m. labs. Hemoglobin is currently stable at 8.2. Consider GI referral for endoscopy due to history of GI bleed and chronic anemia. Will monitor for now and continue Iron supplementation. Continue home medications for other chronic medical. Code Status: DNR/DNI IVF: None DVT PPx: Eliquis GI PPx: Protonix, Carafate ABx: Cefazolin Diet: Regular Discharge plan: [place] for rehab Attestations Medical Necessity Statement*: Continue hospitalization for physical and occupational therapies, IV antibiotics, iron transfusion and recheck of labs. Coding Level of Care Code Acute Code for Chg Fwd Moderate MDM includes number and complexity of problems actively addressed during encounter, amount and/or complexity of data reviewed/ordered and described risk of complication, morbidity or mortality of management as docume nted Diagnoses Supracondylar fracture of left femur S72.452A Encounter type: initial encounter Fracture type: closed Closed fracture of greater tuberosity of humerus S42.254A Encounter type: initial encounter Fracture alignment: nondisplaced Laterality: right Chronic anemia D64.9 Iron deficiency anemia D50.9 CHF (congestive heart failure) I50.9 GI bleed K92.2 GI bleed type/associated pathology: unspecified gastrointestinal hemorrhage type History of deep venous thrombosis or pulmonary embolus 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
--- NOTE | 2023-04-28 12:08 | PC.SOCIAL ---
IMM Update pg 2 of IMM updated and reviewed w/ patient. Copy provided and copy in chart dated, and initialed.
[2023-04-28] MEDS: gabapentin 300 mg Capsule 900 MG PO (16:45)
[2023-04-28] MEDS: iron sucrose 200 MG in sodium chloride 0.9% (100 ml) 100 ML 220 MG IV (20:46)
[2023-04-28 23:51] LABS: Anion Gap 6.6 (5-19); Blood Urea Nitrogen 21 mg/dL (8-23); Calcium 7.6 mg/dL (8.5-10.5); Carbon Dioxide 35 mmol/L (22-29); Chloride 104 mmol/L (98-107); Creatinine Clr Calc Pharmacy 55.2725; Glucose 128 mg/dL (65-115); Magnesium 2.5 mg/dL (1.7-2.3); Osmolality Calculated 297 mOsm/kg (285-295); Potassium 4.6 mmol/L (3.5-5.1); Sodium 141 mmol/L (136-145)
[2023-04-29 00:35] VITALS: BP 123/66; PULSE 69; RESP 17; TEMP 36.8; O2SAT 98
[2023-04-29] MEDS: pantoprazole 40 mg SDV IVP (03:07)
[2023-04-29] MEDS: sucralfate 1 gm Tablet PO ×2 (03:08→16:00)
[2023-04-29] MEDS: acetaminophen 500 mg Tablet 1000 MG PO ×2 (03:08→11:34)
[2023-04-29 03:44] VITALS: BP 127/71; PULSE 70; RESP 19; TEMP 36.6; O2SAT 99
[2023-04-29 05:37] LABS: Magnesium 2.6 mg/dL (1.7-2.3)
[2023-04-29 06:39] VITALS: RESP 19; O2SAT 99
[2023-04-29] MEDS: oxyCODONE 5 mg IR Tab/Cap PO (06:39)
[2023-04-29] MEDS: ferrous sulfate EC 325 mg Tablet PO (08:17)
[2023-04-29] MEDS: donepezil 5 MG Tablet 10 MG PO (08:18)
[2023-04-29] MEDS: cholecalciferol (vitamin D3) 1,000 unit Tablet 1000 UNIT PO (08:18)
[2023-04-29] MEDS: docusate sodium 100 mg Capsule PO (08:18)
[2023-04-29] MEDS: apixaban 5 mg Tablet 2.5 MG PO (08:19)
[2023-04-29] MEDS: gabapentin 300 mg Capsule 600 MG PO (08:19)
[2023-04-29] MEDS: ascorbic acid 500 mg Tablet PO (08:19)
[2023-04-29 08:20] VITALS: PULSE 75; RESP 18; O2SAT 96
[2023-04-29] MEDS: atorvastatin 40 mg Tablet PO (08:20)
[2023-04-29] MEDS: aspirin 81 mg EC Tablet PO (08:20)
[2023-04-29] MEDS: citalopram 20 mg Tablet PO (08:20)
[2023-04-29] MEDS: ipratropium-albuterol 3 mL Neb INHALATION (08:24)
[2023-04-29 08:37] VITALS: PULSE 78
[2023-04-29] MEDS: potassium chloride ER 20 mEq Tablet PO (08:59)
[2023-04-29] MEDS: FUROsemide 40 mg Tablet PO (08:59)
--- NOTE | 2023-04-29 12:09 | P.DS_ITS ---
Discharge Providers Date of Admission: 04/23/23 14:30 Date of Discharge: April 29, 2023 Attending Provider at Admission: Herman Kyle MD Attending Provider at Discharge: Herman Kyle MD Primary Care Provider: Zhang Gamboa MD Diagnoses at Discharge Discharge Diagnosis (1) Supracondylar fracture of left femur: Status: Acute Qualifiers: Encounter type: initial encounter Fracture type: closed Qualified Code(s): S72.452A - Displaced supracondylar fracture without intracondylar extension of lower end of left femur, initial encounter for closed fracture (2) Closed fracture of greater tuberosity of humerus: Status: Acute Qualifiers: Encounter type: initial encounter Fracture alignment: nondisplaced Laterality: right Qualified Code(s): S42.254A - Nondisplaced fracture of greater tuberosity of right humerus, initial encounter for closed fracture (3) Chronic anemia: Status: Acute (4) Iron deficiency anemia: Status: Acute (5) CHF (congestive heart failure): Status: Acute (6) GI bleed: Status: Resolved Qualifiers: GI bleed type/associated pathology: unspecified gastrointestinal hemorrhage type Qualified Code(s): K92.2 - Gastrointestinal hemorrhage, unspecified (7) History of deep venous thrombosis or pulmonary embolus: Status: Acute (8) Malignant neoplasm of upper-outer quadrant of right female breast: Status: Acute Permanent problem details: Stage IA - T1b, N0, M0, G1 (9) Fluid overload: Status: Acute (10) COPD (chronic obstructive pulmonary disease): Status: Acute (11) Enlarged lymph nodes: Status: Acute Reason for Visit Reason for Visit: Fall/ Hip Pain Hospital Course Hospital Course aleshia Jenkins is a 77 year old female COPD, history of pulmonary embolism, history of DVT, history of IVC filter, on chronic Eliquis therapy 2.5 mg daily, last took last night, obstructive sleep apnea, chronic hypoxic respiratory failure, history of GI bleed, history of EGDs and colonoscopies in the past without any significant findings, she was supposed to be set up for iron infusions through Dr. Collins's office however he has left so she was not able to get him, who presents to [facility] for follow-up, patient tells me that this morning she was checking up on her roses, if she was leaning up against a cement wall when she lost her balance, and fell, denies any lightheadedness, no dizziness, no presyncope, no syncope, no chest pain, no palpitations, no recent bloody or black stools, she was found to have a left femur fracture, also found to have a right shoulder fracture, she currently is pain-free, on 3 L, orthopedic service has been called for surgery, hospitalist team was called for medical management, currently blood pressure 116/52, pulse 70, respiratory rate 16, temperature 98.2, O2 sats 91 on 3 L Patient was admitted to [facility] for left femur fracture,, status post surgical intervention by orthopedic service, pain control oxycodone to be sparingly, anticoagulation Eliquis low-dose 2.5 mg twice daily, follow-up with Dr. Rosario as outpatient In terms of patient's acute chronic anemia with history of iron deficient anemia, Chronic anemia, with iron defeciency anemia ? Has had EGDs without significant findings according to patient, has had a capsule endoscopy without significant findings, has had a colonoscopy with multiple polyps some precancerous this was multiple years ago, has not had any imaging since then, possible slow GI bleed -has not received iron infusions -She received 5 doses of IV iron during inpatient -Her hemoglobin was monitored as inpatient remained stable no transfusion required, no bloody or black stools -Protonix, Carafate, -she was managed with a heparin drip throughout her hospitalization, her hemoglobin remained stable, no transfusion needed, no hemodynamic compromise or blood vessels, discharged on low-dose Eliquis 2.5 mg twice daily -?we had an extensive discussion as her hemoglobin 7.5, no bloody or black stools, no hemodynamic compromise, certainly this is a difficult situation, she has had a history of DVT, no saddle pulmonary embolism she does have an IVC filter in place, but now she is relatively immobile with a hip fracture and she has a significant risk of hypercoagulable events, but on the other hand she has a history of known anemia, history of GI bleeds without a clear source identified she tells me that she is already had a capsule endoscopy without any significant findings, she has had EGDs without significant findings, she has had colonoscopies and one within the last few years which she was found to have a couple of precancerous polyps but she was told she has many polyps, so certainly she could be developing anemia from a possible bleeding polyp, her hemoglobin has remained stable at 7.5 I am getting iron infusions for iron deficiency, the plan is to continue to monitor hemoglobin and that at midnight we will stop her heparin drip and plans for surgery tomorrow morning, holding at roughly 12 hours before surgery.? After her surgery we can consider certainly resuming the heparin drip and watching her hemoglobin and see if she develops further anemia.? I had an extensive discussion with her about shared decision making about but what we do in terms of her long-term anticoagulation, for now she wants us to continue anticoagulation, but if she develops further anemia or significant evidence of GI bleed and she is agreeable to stop anticoagulation.? Again she does have an IVC filter placement if she does develop a blood clot, there would not be significant risk of embolic phenomenon although she could dev elop a clot above the IVC filter.? She is on anastrozole for history of breast cancer, I did discuss with her that anastrozole is associate with hypercoagulable events, for now I would recommend at least holding it.? She also tells me that in her right arm she has developed a couple of knots, she has not had a mammogram in many years, has not had an ultrasound.? Upon examination these notes feel like enlarged lymph nodes, she has enlarged brachial lymph nodes, she did have a couple of lymph nodes enlarged in her left axilla, we discussed that she likely as outpatient will need to have a mammogram and ultrasonography. -She tolerated anticoagulation as inpatient, she was discharged on low-dose Eliquis 2.5 mg twice daily, due to concerns of relative immobility after her left femur fracture and high risk of hypercoagulable events her hemoglobin although remained stable, no bloody or black stools, hemoglobin discharge 8.2, follow-up with Dr. Aquino as outpatient for follow-up hemoglobin -Her hemoglobin stable monitored by longterm as outpatient, if it drops below 7 bring back to the emergency room for transfusion, will likely need an EGD and colonoscopy repeat at some point, I have also sent a referral to general surgery for EGD and colonoscopy although she is already had an extensive evaluation without a source of GI bleed found -If she does develop a GI bleed without a clear source and we likely will have to discontinue Eliquis indefinitely, if it does come to that, hopefully at that point she will be more mobile after her hip surgery -I had extensive discussion with patient about the risk and benefits of our options and her discussion as above, shared decision making, she voiced understanding all questions answered, agreed to proceed -Nonetheless I have discontinued her aspirin, as aspirin with the Eliquis with her hemoglobin with her iron deficiency anemia with her history of GI bleeds, carry significant risk of bleeding, discussed risk benefits, she voiced under standing, all questions recommended to proceed -For her lymph nodes in her left axilla, follow with Dr. Aquino as outpatient for consideration of mammography and ultrasonography Physical Exam Const: COMMON NORMALS: no acute distress and patient oriented x3 Resp: COMMON NORMALS: normal respiratory effort, No retractions, No use of accessory muscles and clear to auscultation bilaterally AUSCULTATION: clear to auscultation bilaterally Cardio: COMMON NORMALS: regular rate, regular rhythm, S1 normal heart sound present and S2 normal heart sound present RATE: regular rate RHYTHM: regular rhythm HEART SOUNDS: S1 normal heart sound present and S2 normal heart sound present GI: COMMON NORMALS: Normal to inspection, nondistended, normoactive bowel sounds present and non-tender Extremity: COMMON NORMALS: no pedal edema Neuro: COMMON NORMALS: patient oriented x3 Psych: COMMON NORMALS: mental status grossly normal Urinary Catheter Management: Teresa Latex Free: Cath Placed During This Visit: yes, but has since been removed by the nurse Reason for Continuing Indwelling Catheter: Decision to DC Catheter Urinary Catheter Date of Insertion: 04/23/23 Urinary Catheter Time of Insertion: 13:06 Date Urinary Catheter Removed: 04/26/23 Time Urinary Catheter Discontinued: 06:46 Discharge Data Studies Completed and Pending Completed Studies During Hospitalization Category Date Time Status CT cervical spin wo con* [id number] Urgent Cat Scan 04/23/23 11:[address] head wo con* [id number] Urgent Cat Scan 04/23/23 11:06 Completed XR ankle LT min 3V* [id number] Stat Exams 04/23/23 11:04 Completed XR chest 1V portable [id number] Urgent Exams 04/23/23 10:48 Completed XR femur LT min 2V* [id number] Routine Exams 04/25/23 Completed XR femur LT min 2V* [id number] Stat Exams 04/23/23 11:18 Completed XR hip LT 2-3V wo/w pel* [id number] Stat Exams 04/23/23 10:47 Completed XR knee LT 3V* [id number] Stat Exams 04/23/23 11:04 Completed XR shoulder RT min 2V* [id number] Stat Exams 04/23/23 10:56 Completed US renal BI* [id number] Stat Ultrasound 04/23/23 14:07 Completed Pending at discharge Category Date Time Status SARS Covid-2 Antigen Routine Lab 04/29/23 11:56 Uncollected Laboratory Results WBC 6.26 10^3/uL (3.29-11.43) 04/28/23 08:51 RBC 3.08 10^6/uL (3.85-5.65) L 04/28/23 08:51 Hgb 8.20 g/dL (11.27-16.99) L 04/28/23 08:51 Hct 29.1 % (36-47) L 04/28/23 08:51 MCV 94.5 fl (85-98) 04/28/23 08:51 MCH 26.6 pg (27-33) L 04/28/23 08:51 MCHC 28.2 g/dL (30-55) L 04/28/23 08:51 RDW 21.3 % (12.1-15.1) H 04/28/23 08:51 Plt Count 214 10^3/cmm (157-399) 04/28/23 08:51 MPV 9.1 fL (7.4-10.4) 04/28/23 08:51 Neut % (Auto) 70.1 % 04/28/23 08:51 Lymph % (Auto) 5.3 % 04/28/23 08:51 [place] % (Auto) 15.8 % 04/28/23 08:51 Eos % (Auto) 7.0 % 04/28/23 08:51 Baso % (Auto) 0.8 % 04/28/23 08:51 Neut # (Auto) 4.39 10^3/uL (1.8-7.7) 04/28/23 08:51 Lymph # (Auto) 0.3 10^3/uL (0.8-4.8) L 04/28/23 08:51 [place] # (Auto) 1.0 10^3/uL (0.2-0.9) H 04/28/23 08:51 Eos # (Auto) 0.4 10^3/uL (0.0-0.8) 04/28/23 08:51 Baso # (Auto) 0.1 10^3/uL (0.0-0.1) 04/28/23 08:51 Nucleated RBC % (auto) 0.8 % 04/28/23 08:51 Nucleated RBCs # 0.1 /100WBC 04/28/23 08:51 PT 13.10 SECONDS (12.1-14.9) 04/23/23 10:50 INR 0.96 (0.8-1.2) 04/23/23 10:50 APTT 49.7 SECONDS (23.9-36.7) H 04/27/23 09:49 Sodium 141 mmol/L (136-145) 04/28/23 23:25 Potassium 4.6 mmol/L (3.5-5.1) 04/28/23 23:25 Chloride 104 mmol/L (98-107) 04/28/23 23:25 Carbon Dioxide 35 mmol/L (22-29) H 04/28/23 23:25 Anion Gap 6.6 (5-19) 04/28/23 23:25 BUN 21 mg/dL (8-23) 04/28/23 23:25 Creatinine 0.7 mg/dL (0.5-0.9) 04/28/23 23:25 GFR Calculation Not Reportable 04/28/23 23:25 Glucose 128 mg/dL (65-115) H 04/28/23 23:25 POC Glucose 155 mg/dL (70-110) H 04/25/23 15:50 Estimat Average Glucose 77 04/23/23 10:50 Hemoglobin A1c 4.3 % (4.0-6.0) 04/23/23 10:50 Calculated Osmolality 297 mOsm/kg (285-295) H 04/28/23 23:25 Calcium 7.6 mg/dL (8.5-10.5) L 04/28/23 23:25 Phosphorus 3.3 mg/dL (2.5-4.5) 04/26/23 04:10 Magnesium 2.6 mg/dL (1.7-2.3) H 04/29/23 04:47 Total Bilirubin 0.5 mg/dL (0.15-1.2) 04/28/23 08:51 AST 20 U/L (0-32) 04/28/23 08:51 ALT < 5 U/L (0-33) 04/28/23 08:51 Alkaline Phosphatase 64 U/L (35-105) 04/28/23 08:51 Creatine Kinase 162 U/L (26-192) 04/23/23 10:50 Troponin T Baseline 20 ng/L (0-10) H 04/23/23 16:15 Troponin T 120 Minute 20.18 ng/L (0-10) H 04/23/23 18:07 Delta Troponin T 0.18 ABS# (0-10) 04/23/23 18:07 Troponin T Hi Sens 6Hr 20.99 ng/L (0-10) H 04/23/23 20:49 Troponin T Hi Sens 6Hr Delta 0.99 ng/L (0-12) 04/23/23 20:49 NT-Pro-B Natriuret Pep 241 pg/mL (0-450) 04/23/23 10:50 Total Protein 5.3 g/dL (6.6-8.7) L 04/28/23 08:51 Albumin 2.8 g/dL (3.5-5.2) L 04/28/23 08:51 Globulin 2.5 g/dL (1.3-4.6) 04/28/23 08:51 Triglycerides 62 mg/dL (0-150) 04/23/23 10:50 Cholesterol 157 mg/dL (0-200) 04/23/23 10:50 LDL Cholesterol, Calc 46 mg/dL (50-129) L 04/23/23 10:50 HDL Cholesterol 99 mg/dL (60-100) 04/23/23 10:50 LDL/HDL Ratio 0.46 RATIO (0.00-3.22) 04/23/23 10:50 Cholesterol/HDL Ratio 1.59 mg/dL (0.0-4.40) 04/23/23 10:50 TSH 4.24 uIU/mL (0.27-4.20) H 04/23/23 10:50 Urine Color Yellow (Yellow) 04/23/23 13:04 Urine Appearance Sl hazy (CLEAR) A 04/23/23 13:04 Urine pH 9 (5-7) H 04/23/23 13:04 Ur Specific [place] 1.010 (1.005-1.030) 04/23/23 13:04 Urine Protein Neg (Negative) 04/23/23 13:04 Urine Glucose (UA) Norm (Normal) 04/23/23 13:04 Urine Ketones Negative (Negative) 04/23/23 13:04 Urine Blood 3+ (Negative) H 04/23/23 13:04 Urine Nitrate Negative (Negative) 04/23/23 13:04 Urine Bilirubin Neg (Negative) 04/23/23 13:04 Prot Sulfosalicylic Acd Negative (Negative) 04/23/23 13:04 Urine Urobilinogen Norm mg/dL (Negative) 04/23/23 13:04 Ur Leukocyte Esterase Negative (Negative) 04/23/23 13:04 Urine RBC >100 /hpf (0-2) H 04/23/23 13:04 Urine WBC 0-4 /hpf (0-5) H 04/23/23 13:04 Ur Squamous Epith Cells 0-4 /hpf (0-5) H 04/23/23 13:04 Amorphous Sediment Not Reportable 04/23/23 13:04 Urine Bacteria None /hpf (NONE) 04/23/23 13:04 Blood Type O Negative 04/24/23 12:03 Rho(D) Type Negative 04/24/23 12:03 Antibody Screen Negative 04/24/23 12:03 Crossmatch See Detail 04/24/23 12:03 Vitals Last Vital Signs Temp 97.8 F 04/29/23 03:44 Pulse 78 04/29/23 08:37 Resp 18 04/29/23 08:20 BP 127/71 04/29/23 03:44 Pulse Ox 96 04/29/23 08:20 O2 Del Method Nasal Cannula 04/29/23 08:20 O2 Flow Rate 2 04/29/23 08:20 Discharge Plan Discharge Patient Disposition: Xfer SNF Condition: Stable Prescriptions: New sucralfate 1 gram Tablet 1 g PO Q12H 30 Days Qty: 60 0RF Protonix 40 mg tablet,delayed release (DR/EC) 40 mg PO BIDWM 30 Days Qty: 60 0RF oxycodone 5 mg tablet 5 mg PO Q6H PRN (Reason: pain) 7 Days Qty: 28 0RF Continued (DME) Power step arch support See Rx Instructions .Route .MEDSUPPLY Qty: 2 0RF Rx Instructions: As directed gabapentin 300 mg capsule See Rx Instructions .ROUTE .COMPLEX Rx Instructions: 600 mg orally in the morning / 900 mg in the evening donepezil 10 mg tablet 10 mg PO DAILY citalopram 20 mg tablet 20 mg PO DAILY ferrous sulfate 324 mg (65 mg iron) tablet,delayed release (DR/EC) 324 mg PO DAILY mecobalamin (vitamin B12) 1,000 mcg tablet,chewable 1,000 mcg PO DAILY magnesium oxide 500 mg capsule 500 mg PO DAILY tizanidine 4 mg capsule 4 mg PO QID PRN (Reason: muscle spasms) fluticasone propionate 50 mcg/actuation spray,suspension 1 spray intranasal BID Rx Instructions: administer into each nostril ketoconazole 2 % shampoo 1 applic topical .2 x weekly Qty: 120 3RF Rx Instructions: Lather into scalp 2 times weekly. Allow to sit on scalp for 5 minutes before rinsing. mupirocin 2 % ointment 1 applic topical BID Qty: 15 0RF bumetanide 1 mg tablet 1 mg PO DAILY cholecalciferol (vitamin D3) 25 mcg (1,000 unit) capsule 25 mcg PO DAILY diphenhydramine HCl [Benadryl Allergy] 25 mg tablet 25 mg PO TID PRN (Reason: Allergic Symptoms) nitroglycerin 0.4 mg tablet, sublingual 0.4 mg sublingual Q5M PRN (Reason: Chest Pain) Qty: 25 3RF Rx Instructions: do not exceed 3 doses per episode potassium chloride [Klor-Con M20] 20 mEq tablet,ER particles/crystals 20 meq PO BID Qty: 180 3RF rosuvastatin [Crestor] 10 mg tablet 10 mg PO DAILY Qty: 90 3RF ascorbic acid (vitamin C) 500 mg capsule 500 mg PO DAILY Qty: 90 0RF Rx Instructions: Take 1 capsule by mouth every day with iron anastrozole 1 mg tablet 1 mg PO DAILY Qty: 90 1RF ipratropium-albuterol 0.5 mg-3 mg(2.5 mg base)/3 mL solution for nebulization 3 ml inhalation Q6H PRN (Reason: wheezing) Qty: 180 3RF tramadol 50 mg Tablet 50 mg PO TID PRN (Reason: Pain) triamcinolone acetonide 0.1 % cream See Rx Instructions .ROUTE .COMPLEX Rx Instructions: 1 applic topically twice daily to rash on arms as needed for no more than 3 weeks per month betamethasone dipropionate 0.05 % cream 1 applic TOPICAL BID PRN (Reason: Rash) hydrocortisone 2.5 % cream See Rx Instructions .ROUTE .COMPLEX Rx Instructions: 1 applic topically TO AFFECTED AREA TWICE DAILY FOR NO MORE THAN ONE WEEK PER MONTH Changed Eliquis 2.5 mg tablet 2.5 mg PO BID 30 Days Qty: 60 0RF Discontinued aspirin [Adult Aspirin Regimen] 81 mg tablet,delayed release (DR/EC) 81 mg PO DAILY Hold Instructions: Resume on 09/17/21. Discharge Orders: Discharge Order (Routine); Ordered 04/29/23 Ordered By: Herman Kyle Referrals: [facility] [Outside] Brenden Hooper MD [Physician] - 2 weeks (egd and colonsocoppy SENT MESSAGE TO CLINIC 04/29 @ 1228) Blessing Joyner MD [Physician] - 05/13/23 1:15 pm (Please arrive 15 minutes prior to appointment. ) Zhang Gamboa MD [Primary Care Provider] - Steven Aquino MD [Hospitalist] - 2 weeks (message sent to clinic 04/29 @ 1212) Discharge Diet: Cardiac Discharge Activity: As per PT/OT instructions Patient Instructions: Opioid Safety Activity Restrictions/Additional Instructions: -please have longterm recheck hemoglobin in 48 hours, hemoglobin on discharge is 8.2 -if you feel lightheaded or dizzy or develop bloody or black stools go to emergency room -please use pain medication sparingly for pain -follow up with dr. aquino Discharge Attestations Time Spent in Discharge Care*: greater than 30 min Quality Metrics Clinical Quality Measures [ No reported AMI, CVA or VTE this stay] Coding Level of Care Code 55800 Total time (in minutes) for Discharge: 45 Diagnoses Supracondylar fracture of left femur S72.452A Encounter type: initial encounter Fracture type: closed Closed fracture of greater tuberosity of humerus S42.254A Encounter type: initial encounter Fracture alignment: nondisplaced Laterality: right Chronic anemia D64.9 Iron deficiency anemia D50.9 CHF (congestive heart failure) I50.9 GI bleed K92.2 GI bleed type/associated pathology: unspecified gastrointestinal hemorrhage type History of deep venous thrombosis or pulmonary embolus 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
[2023-04-29 12:42] LABS: SARS Covid-2 Antigen negative (Negative)
== END 2023-04-29 16:23 | disposition skilled nursing facility (03) | DRG 480 ==
LOC: ER 14:02 → MEDSURG 14:31
PROVIDERS: Family Medicine; Internal Medicine; Specialist; Student in an Organized Health Care Education/Training Program; Admitting Provider Family Medicine; Emergency Provider Physician Assistant; PCP Family Medicine; Visit Provider Family Medicine
PROC: 0QSC04Z Reposition Left Lower Femur with Internal Fixation Device, Open Approach (ICD-10-PCS; principal; 2023-04-25 12:30)
DX: S42.414A Nondisplaced simple supracondylar fracture without intercondylar fracture of right humerus, initial encounter for closed fracture (principal); S72.352A Displaced comminuted fracture of shaft of left femur, initial encounter for closed fracture; I13.0 Hypertensive heart and chronic kidney disease with heart failure and stage 1 through stage 4 chronic kidney disease, or unspecified chronic kidney disease; M97.12XA Periprosthetic fracture around internal prosthetic left knee joint, initial encounter; J96.12 Chronic respiratory failure with hypercapnia; J96.11 Chronic respiratory failure with hypoxia; K92.2 Gastrointestinal hemorrhage, unspecified; W01.0XXA Fall on same level from slipping, tripping and stumbling without subsequent striking against object, initial encounter; J44.9 Chronic obstructive pulmonary disease, unspecified; Z86.711 Personal history of pulmonary embolism; Z86.718 Personal history of other venous thrombosis and embolism; Z95.828 Presence of other vascular implants and grafts; G47.33 Obstructive sleep apnea (adult) (pediatric); D50.9 Iron deficiency anemia, unspecified; C50.411 Malignant neoplasm of upper-outer quadrant of right female breast; Z79.811 Long term (current) use of aromatase inhibitors; R59.0 Localized enlarged lymph nodes; Z79.891 Long term (current) use of opiate analgesic; Z79.01 Long term (current) use of anticoagulants; I50.9 Heart failure, unspecified; N18.9 Chronic kidney disease, unspecified; Z66 Do not resuscitate; Z87.891 Personal history of nicotine dependence; E78.5 Hyperlipidemia, unspecified; Z85.828 Personal history of other malignant neoplasm of skin; K21.9 Gastro-esophageal reflux disease without esophagitis; Z96.652 Presence of left artificial knee joint; M19.072 Primary osteoarthritis, left ankle and foot; M19.011 Primary osteoarthritis, right shoulder
CPT/HCPCS: 36415; 36416; 51702; 70450; 71045; 72125; 73030; 73502; 73552; 73562; 73610; 76000; 76770; 80048; 80053; 80061; 81001; 82550; 82962; 83036; 83735; 83880; 84100; 84443; 84484; 85014; 85018; 85025; 85610; 85730; 86850; 86900; 86920; 87086; 87426; 93005; 94640; 94664; 96374; 97110; 97161; 97167; 97530; 97535; 97760; 99285; A9281; C1713; C9113; J0131; J0690; J1100; J1170; J1644; J1756; J1940; J2270; J2371; J2405; J2704; J3010; J3370; J3490; J7030; P9016; Q3014

== ENCOUNTER → 2023-05-13 13:05 | Outpatient (BNVA) | payer MEDICARE, SELFPAY | PROVIDERS: PCP Family Medicine; Visit Provider Specialist | DX: M97.12XD Periprosthetic fracture around internal prosthetic left knee joint, subsequent encounter; S72.452D Displaced supracondylar fracture without intracondylar extension of lower end of left femur, subsequent encounter for closed fracture with routine healing; X58.XXXD Exposure to other specified factors, subsequent encounter; Z46.89 Encounter for fitting and adjustment of other specified devices | CPT/HCPCS: 73560; 97760; 99024; L1832 ==

== ENCOUNTER 2023-05-13 15:14 | Outpatient (CLI) | payer MEDICARE, SELFPAY | END 2023-05-13 15:15 | disposition home or self-care (01) | LOC: SPT 15:14 | PROVIDERS: PCP Family Medicine; Visit Provider Specialist | DX: Z46.89 Encounter for fitting and adjustment of other specified devices (principal); M97.12XD Periprosthetic fracture around internal prosthetic left knee joint, subsequent encounter; X58.XXXD Exposure to other specified factors, subsequent encounter | CPT/HCPCS: 97760; 99024; L1832 ==

== ENCOUNTER 2023-05-16 11:29 | Oncology outpatient (recurring) (ONCR) | payer MEDICARE, SELFPAY ==
[2023-05-16 12:00] VITALS: BP 119/50; PULSE 66; RESP 16; TEMP 37.2; O2SAT 100
[2023-05-16 12:14] LABS: Basophils # 0.1 10^3/uL (0.0-0.1); Basophils % 0.9 %; Eosinophils # 0.3 10^3/uL (0.0-0.8); Eosinophils % 4.6 %; Hematocrit 32.5 % (36-47); Lymphocytes # 0.7 10^3/uL (0.8-4.8); Lymphocytes % 11.3 %; Mean Corpuscular Hemoglobin 27.2 pg (27-33); Mean Platelet Volume 8.2 fL (7.4-10.4); Monocytes # 0.9 10^3/uL (0.2-0.9); Monocytes % 14.9 %; Neutrophils # 3.94 10^3/uL (1.8-7.7); Neutrophils % 67.6 %; Nucleated Red Blood Cells % 0 %; Platelet Count 395 10^3/cmm (157-399); Red Blood Count 3.35 10^6/uL (3.85-5.65); Red Cell Distribution Width 21.2 % (12.1-15.1); White Blood Count 5.83 10^3/uL (3.29-11.43)
[2023-05-16 12:38] LABS: Ferritin 276 ng/mL (15-150); Iron 49 ug/dL (37-145); Percent Saturation 20.5 % (20-50); Total Iron Binding Capacity 238 mcg/dl; Unsaturated Iron Binding 189 ug/dL (112-347)
== END 2023-06-01 23:59 | disposition home or self-care (01) ==
PROVIDERS: Internal Medicine Medical Oncology; PCP Family Medicine; Visit Provider Internal Medicine Hematology & Oncology
DX: D64.9 Anemia, unspecified (principal); Z79.899 Other long term (current) drug therapy; Z86.711 Personal history of pulmonary embolism; Z86.718 Personal history of other venous thrombosis and embolism; Z79.01 Long term (current) use of anticoagulants; C50.811 Malignant neoplasm of overlapping sites of right female breast; Z17.1 Estrogen receptor negative status [ER-]; Z79.818 Long term (current) use of other agents affecting estrogen receptors and estrogen levels; C50.411 Malignant neoplasm of upper-outer quadrant of right female breast
CPT/HCPCS: 36415; 82728; 83540; 83550; 85025; 99214

== ENCOUNTER → 2023-06-19 10:03 | Outpatient (BNVA) | payer MEDICARE, SELFPAY | PROVIDERS: PCP Family Medicine; Visit Provider Nurse Practitioner | DX: S72.452D Displaced supracondylar fracture without intracondylar extension of lower end of left femur, subsequent encounter for closed fracture with routine healing; M97.12XD Periprosthetic fracture around internal prosthetic left knee joint, subsequent encounter; X58.XXXD Exposure to other specified factors, subsequent encounter | CPT/HCPCS: 73562; 99024; 99213 ==

== ENCOUNTER 2023-07-01 14:00 | Oncology outpatient (recurring) (ONCR) | payer MEDICARE, SELFPAY ==
[2023-06-13 11:57] LABS: Basophils % 1.1 %; Eosinophils # 0.2 10^3/uL (0.0-0.8); Eosinophils % 4.9 %; Hematocrit 28.4 % (36-47); Lymphocytes # 0.5 10^3/uL (0.8-4.8); Lymphocytes % 14.7 %; Mean Corpuscular HGB Conc 27.8 g/dL (30-55); Mean Corpuscular Hemoglobin 25.6 pg (27-33); Mean Corpuscular Volume 92.2 fl (85-98); Mean Platelet Volume 8.4 fL (7.4-10.4); Monocytes # 0.5 10^3/uL (0.2-0.9); Monocytes % 14.4 %; Neutrophils # 2.38 10^3/uL (1.8-7.7); Neutrophils % 64.6 %; Nucleated Red Blood Cells % 0 %; Platelet Count 278 10^3/cmm (157-399); Red Blood Count 3.08 10^6/uL (3.85-5.65); Red Cell Distribution Width 18.8 % (12.1-15.1); White Blood Count 3.68 10^3/uL (3.29-11.43)
[2023-06-13 12:24] LABS: Alanine Aminotransferase 6 U/L (0-33); Albumin Level 3.6 g/dL (3.5-5.2); Alkaline Phosphatase 104 U/L (35-105); Anion Gap 9.9 (5-19); Aspartate Amino Transferase 16 U/L (0-32); Blood Urea Nitrogen 15 mg/dL (8-23); Calcium 7.9 mg/dL (8.5-10.5); Carbon Dioxide 33 mmol/L (22-29); Chloride 106 mmol/L (98-107); Ferritin 68 ng/mL (15-150); Globulin 2.1 g/dL (1.3-4.6); Glucose 100 mg/dL (65-115); Iron 19 ug/dL (37-145); Osmolality Calculated 301 mOsm/kg (285-295); Percent Saturation 6.2 % (20-50); Potassium 3.9 mmol/L (3.5-5.1); Sodium 145 mmol/L (136-145); Total Bilirubin 0.4 mg/dL (0.15-1.2); Total Iron Binding Capacity 302 mcg/dl; Total Protein 5.7 g/dL (6.6-8.7); Unsaturated Iron Binding 283 ug/dL (112-347)
[2023-06-20] MEDS: iron sucrose 200 MG in sodium chloride 0.9% (100 ml) 100 ML 220 MG IV (14:59)
[2023-06-24] MEDS: iron sucrose 200 MG in sodium chloride 0.9% (100 ml) 100 ML 220 MG IV (14:57)
[2023-06-24 15:41] VITALS: BP 141/61; PULSE 71; RESP 17; TEMP 36.2; O2SAT 96
[2023-06-26 14:04] VITALS: BP 123/60; PULSE 72; RESP 18; TEMP 36.4; O2SAT 97
[2023-06-26] MEDS: iron sucrose 200 MG in sodium chloride 0.9% (100 ml) 100 ML 220 MG IV (14:29)
[2023-06-26 15:10] VITALS: BP 124/68; PULSE 74; RESP 18; TEMP 36.4; O2SAT 94
[2023-06-28] MEDS: iron sucrose 200 MG in sodium chloride 0.9% (100 ml) 100 ML 220 MG IV (10:58)
[2023-07-01 13:44] VITALS: BP 152/62; PULSE 65; RESP 18; O2SAT 90
[2023-07-01 14:30] VITALS: BP 152/58; PULSE 62; O2SAT 97
== END 2023-07-02 23:59 | disposition home or self-care (01) ==
PROVIDERS: PCP Family Medicine; Visit Provider Internal Medicine Medical Oncology
DX: Z45.2 Encounter for adjustment and management of vascular access device (principal)
CPT/HCPCS: 36415; 80053; 82274; 82728; 83540; 83550; 85025; 96365; 99214; J1756

== ENCOUNTER → 2023-07-03 15:49 | Outpatient (BNVA) | payer MEDICARE, SELFPAY | PROVIDERS: PCP Family Medicine; Visit Provider Nurse Practitioner | DX: M97.12XD Periprosthetic fracture around internal prosthetic left knee joint, subsequent encounter; S72.452D Displaced supracondylar fracture without intracondylar extension of lower end of left femur, subsequent encounter for closed fracture with routine healing; X58.XXXD Exposure to other specified factors, subsequent encounter | CPT/HCPCS: 73560; 73565; 99213 ==

== ENCOUNTER → 2023-07-22 13:57 | Outpatient (BNVA) | payer MEDICARE, SELFPAY | PROVIDERS: PCP Family Medicine; Visit Provider Nurse Practitioner | DX: M97.12XA Periprosthetic fracture around internal prosthetic left knee joint, initial encounter (principal); S72.452D Displaced supracondylar fracture without intracondylar extension of lower end of left femur, subsequent encounter for closed fracture with routine healing; X58.XXXD Exposure to other specified factors, subsequent encounter | CPT/HCPCS: 73560; 73562; 73565; 99213 ==

== ENCOUNTER → 2023-08-05 13:38 | Outpatient (BNVA) | payer MEDICARE, SELFPAY | PROVIDERS: PCP Family Medicine; Visit Provider Nurse Practitioner Family | DX: L57.0 Actinic keratosis (principal); M70.22 Olecranon bursitis, left elbow; Y93.9 Activity, unspecified; L82.1 Other seborrheic keratosis; Z08 Encounter for follow-up examination after completed treatment for malignant neoplasm; Z85.828 Personal history of other malignant neoplasm of skin; L57.8 Other skin changes due to chronic exposure to nonionizing radiation | CPT/HCPCS: 17000; 99213 ==

== ENCOUNTER 2023-08-08 08:00 | Oncology outpatient (recurring) (ONCR) | payer MEDICARE, SELFPAY ==
[2023-08-07 14:53] VITALS: BP 148/61; PULSE 65; RESP 16; TEMP 36.2; O2SAT 93
[2023-08-07 15:16] LABS: Basophils # 0.1 10^3/uL (0.0-0.1); Basophils % 1.1 %; Eosinophils # 0.3 10^3/uL (0.0-0.8); Eosinophils % 4.7 %; Lymphocytes # 0.6 10^3/uL (0.8-4.8); Mean Corpuscular HGB Conc 26.8 g/dL (30-55); Mean Corpuscular Hemoglobin 25.4 pg (27-33); Mean Corpuscular Volume 94.9 fl (85-98); Mean Platelet Volume 8.4 fL (7.4-10.4); Monocytes # 0.7 10^3/uL (0.2-0.9); Monocytes % 11.7 %; Neutrophils # 4.06 10^3/uL (1.8-7.7); Neutrophils % 71.1 %; Nucleated Red Blood Cells % 0 %; Platelet Count 283 10^3/cmm (157-399); Red Blood Count 2.95 10^6/uL (3.85-5.65); Red Cell Distribution Width 17.6 % (12.1-15.1); White Blood Count 5.71 10^3/uL (3.29-11.43)
[2023-08-07 15:34] LABS: Alanine Aminotransferase 8 U/L (0-33); Albumin Level 3.7 g/dL (3.5-5.2); Alkaline Phosphatase 94 U/L (35-105); Anion Gap 11.5 (5-19); Aspartate Amino Transferase 18 U/L (0-32); Blood Urea Nitrogen 17 mg/dL (8-23); Calcium 8.8 mg/dL (8.5-10.5); Carbon Dioxide 32 mmol/L (22-29); Chloride 105 mmol/L (98-107); Ferritin 40 ng/mL (15-150); Globulin 2.2 g/dL (1.3-4.6); Glucose 93 mg/dL (65-115); Iron 31 ug/dL (37-145); Osmolality Calculated 299 mOsm/kg (285-295); Percent Saturation 9.5 % (20-50); Potassium 4.5 mmol/L (3.5-5.1); Sodium 144 mmol/L (136-145); Total Bilirubin 0.3 mg/dL (0.15-1.2); Total Iron Binding Capacity 326 mcg/dl; Total Protein 5.9 g/dL (6.6-8.7); Unsaturated Iron Binding 295 ug/dL (112-347)
[2023-08-08] VITALS (10 sets, daily range): BP systolic 128–174; BP diastolic 50–92; PULSE 54–67; RESP 16–18; TEMP 36.6–36.8; O2SAT 95–98
[2023-08-08] MEDS: sodium chloride 0.9% 100 mL Bag 50 ML IV (08:11)
[2023-08-08] MEDS: acetaminophen 325 mg Tablet 650 MG PO (08:12)
[2023-08-08] MEDS: diphenhydrAMINE 25 mg Capsule PO (08:17)
[2023-08-08 13:35] LABS: Add Urine Microscopic? NO; Charge for UA Resulting for Rev
[2023-08-08 13:44] LABS: Urine Appearance Clear (CLEAR); Urine Color Yellow (Yellow)
[2023-08-08 13:45] LABS: Bilirubin Urine Neg (Negative); Blood Urine Neg (Negative); Glucose Urine UA Norm (Normal); Ketones Urine Negative (Negative); Leukocyte Esterase Urine Negative (Negative); Nitrate Urine Negative (Negative); Protein Urine Neg (Negative); Sulfosalicylic Acid Urine Negative (Negative); Urobilinogen Urine Neg (Negative); pH Urine 8 (5-7)
== END 2023-09-01 23:59 | disposition home or self-care (01) ==
PROVIDERS: Internal Medicine; PCP Family Medicine; Visit Provider Internal Medicine Hematology & Oncology
DX: D64.9 Anemia, unspecified
CPT/HCPCS: 36415; 36430; 80053; 81003; 82274; 82728; 83540; 83550; 85025; 86850; 86900; 86920; 99214; P9016

== ENCOUNTER → 2023-08-15 11:00 | Outpatient (BNVA) | payer MEDICARE, SELFPAY | PROVIDERS: PCP Family Medicine; Visit Provider Nurse Practitioner | DX: M16.12 Unilateral primary osteoarthritis, left hip; M97.12XD Periprosthetic fracture around internal prosthetic left knee joint, subsequent encounter; S72.452D Displaced supracondylar fracture without intracondylar extension of lower end of left femur, subsequent encounter for closed fracture with routine healing; X58.XXXD Exposure to other specified factors, subsequent encounter | CPT/HCPCS: 73502; 73562; 99214 ==

== ENCOUNTER → 2023-09-12 10:21 | Outpatient (BNVA) | payer MEDICARE, SELFPAY | PROVIDERS: PCP Family Medicine; Visit Provider Nurse Practitioner | DX: M16.12 Unilateral primary osteoarthritis, left hip; M70.62 Trochanteric bursitis, left hip; M97.12XD Periprosthetic fracture around internal prosthetic left knee joint, subsequent encounter; S72.452D Displaced supracondylar fracture without intracondylar extension of lower end of left femur, subsequent encounter for closed fracture with routine healing; X58.XXXD Exposure to other specified factors, subsequent encounter | CPT/HCPCS: 20610; 73502; 73562; 99214; J1100; J2795; J3301 ==

== ENCOUNTER 2023-10-01 10:18 | Oncology outpatient (recurring) (ONCR) | payer MEDICARE, SELFPAY ==
[2023-09-17 08:24] VITALS: BP 149/54; PULSE 71; RESP 18; TEMP 36.6; O2SAT 99
[2023-09-17 08:53] LABS: Basophils # 0.1 10^3/uL (0.0-0.1); Basophils % 1.3 %; Eosinophils # 0.4 10^3/uL (0.0-0.8); Eosinophils % 6.9 %; Hematocrit 32.4 % (36-47); Lymphocytes # 0.7 10^3/uL (0.8-4.8); Lymphocytes % 13.6 %; Mean Corpuscular HGB Conc 27.5 g/dL (30-55); Mean Corpuscular Hemoglobin 23.7 pg (27-33); Mean Corpuscular Volume 86.4 fl (85-98); Mean Platelet Volume 8.6 fL (7.4-10.4); Monocytes # 0.7 10^3/uL (0.2-0.9); Neutrophils # 3.49 10^3/uL (1.8-7.7); Nucleated Red Blood Cells % 0 %; Platelet Count 304 10^3/cmm (157-399); Red Blood Count 3.75 10^6/uL (3.85-5.65); Red Cell Distribution Width 17.3 % (12.1-15.1); Reticulocyte % 2.8 % (0.5-2.0); White Blood Count 5.37 10^3/uL (3.29-11.43)
[2023-09-17 09:41] LABS: Alanine Aminotransferase 12 U/L (0-33); Albumin Level 3.8 g/dL (3.5-5.2); Alkaline Phosphatase 103 U/L (35-105); Anion Gap 10.4 (5-19); Aspartate Amino Transferase 21 U/L (0-32); Blood Urea Nitrogen 17 mg/dL (8-23); Calcium 8.6 mg/dL (8.5-10.5); Carbon Dioxide 33 mmol/L (22-29); Chloride 103 mmol/L (98-107); Ferritin 22 ng/mL (15-150); Globulin 2.4 g/dL (1.3-4.6); Glucose 99 mg/dL (65-115); Iron 20 ug/dL (37-145); Lactate Dehydrogenase 178 U/L (135-214); Osmolality Calculated 296 mOsm/kg (285-295); Percent Saturation 5.2 % (20-50); Potassium 4.4 mmol/L (3.5-5.1); Sodium 142 mmol/L (136-145); Total Bilirubin 0.4 mg/dL (0.15-1.2); Total Iron Binding Capacity 380 mcg/dl; Total Protein 6.2 g/dL (6.6-8.7); Unsaturated Iron Binding 360 ug/dL (112-347); Vitamin B12 1147 pg/mL (232-1245)
[2023-09-17 10:24] LABS: Folate Level 8.4 ng/mL (4.8-37.3)
[2023-09-19] MEDS: sodium chloride 0.9% 250 ML 75 ML IV (14:13)
[2023-09-19] MEDS: ferric carboxy (IVPB) 750 MG in sodium chloride 0.9% (100 ml) 100 ML 345 MG IV (14:19)
[2023-09-19 14:23] VITALS: BP 152/59; PULSE 63; RESP 17; TEMP 36.8; O2SAT 96
[2023-09-19 15:05] VITALS: BP 155/80; PULSE 60; RESP 17; O2SAT 97
[2023-09-20 11:50] LABS: Methylmalonic Acid 279 nmol/L (87-318)
[2023-09-24 08:30] LABS: Copper Level 113 mcg/dL (70-175)
[2023-09-24 16:34] LABS: Soluble Transferrin Receptor 5.29 mg/L (0.76-1.76)
[2023-09-26 12:57] VITALS: BP 122/78; PULSE 75; RESP 18; TEMP 36.6; O2SAT 98
[2023-09-26] MEDS: ferric carboxy (IVPB) 750 MG in sodium chloride 0.9% (100 ml) 100 ML 345 MG IV (13:12)
== END 2023-10-02 23:59 | disposition home or self-care (01) ==
PROVIDERS: Internal Medicine; PCP Family Medicine; Visit Provider Internal Medicine Medical Oncology
DX: Z53.9 Procedure and treatment not carried out, unspecified reason (principal)
CPT/HCPCS: 36415; 80053; 82525; 82607; 82728; 82746; 83540; 83550; 83615; 83921; 84238; 85025; 85045; 86850; 86900; 96365; 99214; J1439; J7050

== ENCOUNTER 2023-10-01 10:27 | Outpatient (CLI) | payer MEDICARE, SELFPAY | END 2023-10-01 10:28 | disposition home or self-care (01) | LOC: LAB 10:30 | PROVIDERS: PCP Family Medicine; Visit Provider Internal Medicine Medical Oncology | DX: D64.9 Anemia, unspecified (principal) | CPT/HCPCS: 82274 ==

== ENCOUNTER → 2023-10-02 09:10 | Outpatient (BNVA) | payer MEDICARE, SELFPAY | PROVIDERS: PCP Family Medicine; Visit Provider Internal Medicine Pulmonary Disease | DX: I27.82 Chronic pulmonary embolism (principal); D50.9 Iron deficiency anemia, unspecified; R07.9 Chest pain, unspecified; Z87.891 Personal history of nicotine dependence | CPT/HCPCS: 99214 ==

== ENCOUNTER 2023-10-28 14:30 | Oncology outpatient (recurring) (ONCR) | payer MEDICARE, SELFPAY ==
[2023-10-24 12:41] LABS: Basophils # 0.1 10^3/uL (0.0-0.1); Eosinophils # 0.2 10^3/uL (0.0-0.8); Eosinophils % 4.8 %; Hematocrit 38.5 % (36-47); Lymphocytes # 0.7 10^3/uL (0.8-4.8); Lymphocytes % 14.5 %; Mean Corpuscular HGB Conc 29.1 g/dL (30-55); Mean Corpuscular Hemoglobin 28.1 pg (27-33); Mean Corpuscular Volume 96.5 fl (85-98); Mean Platelet Volume 8.8 fL (7.4-10.4); Monocytes # 0.6 10^3/uL (0.2-0.9); Monocytes % 12.1 %; Neutrophils # 3.39 10^3/uL (1.8-7.7); Neutrophils % 67.4 %; Nucleated Red Blood Cells % 0 %; Platelet Count 213 10^3/cmm (157-399); Red Blood Count 3.99 10^6/uL (3.85-5.65); Red Cell Distribution Width 21.5 % (12.1-15.1); White Blood Count 5.03 10^3/uL (3.29-11.43)
[2023-10-24 13:01] LABS: Alanine Aminotransferase 10 U/L (0-33); Albumin Level 3.7 g/dL (3.5-5.2); Alkaline Phosphatase 112 U/L (35-105); Anion Gap 8.9 (5-19); Aspartate Amino Transferase 22 U/L (0-32); Blood Urea Nitrogen 20 mg/dL (8-23); Calcium 8.6 mg/dL (8.5-10.5); Carbon Dioxide 34 mmol/L (22-29); Chloride 104 mmol/L (98-107); Ferritin 191 ng/mL (15-150); Globulin 2.3 g/dL (1.3-4.6); Glucose 96 mg/dL (65-115); Iron 58 ug/dL (37-145); Osmolality Calculated 296 mOsm/kg (285-295); Percent Saturation 23.7 % (20-50); Potassium 4.9 mmol/L (3.5-5.1); Sodium 142 mmol/L (136-145); Total Bilirubin 0.3 mg/dL (0.15-1.2); Total Iron Binding Capacity 244 mcg/dl; Unsaturated Iron Binding 186 ug/dL (112-347)
[2023-10-28] MEDS: denosumab 60 mg SDV SUBCUT (13:42)
== END 2023-10-31 23:59 | disposition home or self-care (01) ==
PROVIDERS: PCP Family Medicine; Visit Provider Internal Medicine Medical Oncology
DX: C50.411 Malignant neoplasm of upper-outer quadrant of right female breast; Z53.9 Procedure and treatment not carried out, unspecified reason; M97.12XD Periprosthetic fracture around internal prosthetic left knee joint, subsequent encounter; M16.12 Unilateral primary osteoarthritis, left hip; X58.XXXA Exposure to other specified factors, initial encounter; S72.452D Displaced supracondylar fracture without intracondylar extension of lower end of left femur, subsequent encounter for closed fracture with routine healing; X58.XXXD Exposure to other specified factors, subsequent encounter
CPT/HCPCS: 36415; 73562; 80053; 82728; 83540; 83550; 85025; 96372; 99213; 99214; J0897

== ENCOUNTER 2023-11-07 14:02 | Outpatient (CLI) | payer MEDICARE, SELFPAY ==
--- NOTE | 2023-11-07 14:30 | XR_ITS ---
WS: [id number] SCREENING DEXA SCAN [employer] CLINICAL INFORMATION: osteopenia COMPARISON: 2021 FINDINGS: RIGHT femoral neck bone mineral density measures 0.864. This corresponds to a T score score of -1.1 a nd Z score of 0.7. Left forearm bone mineral density measures 0.652. This corresponds to a T score of -2.6 and Z score o f 0.0. Right forearm bone mineral density measures 0.636. This corresponds to a T score -2.7 and Z score of -0.2. IMPRESSION: Osteopenia RIGHT femoral neck. Osteoporosis LEFT forearm. Osteoporosis RIGHT forearm. Patient's FRAX calculated 10 year probability for major osteoporotic fracture is 25.0% and osteoporot ic hip fracture is 6.3%. Bone mineral density in the RIGHT femur increased 1.6% Bone mineral density LEFT forearm decreased -10.4%
== END 2023-11-07 14:03 | disposition home or self-care (01) ==
LOC: RAD 14:03
PROVIDERS: PCP Family Medicine; Visit Provider Nurse Practitioner Family
DX: M85.851 Other specified disorders of bone density and structure, right thigh (principal); M81.0 Age-related osteoporosis without current pathological fracture
CPT/HCPCS: 77080

== ENCOUNTER → 2023-11-13 14:24 | Outpatient (BNVA) | payer MEDICARE, SELFPAY | PROVIDERS: PCP Family Medicine; Visit Provider Internal Medicine | DX: R07.89 Other chest pain (principal); R06.02 Shortness of breath; I13.0 Hypertensive heart and chronic kidney disease with heart failure and stage 1 through stage 4 chronic kidney disease, or unspecified chronic kidney disease; N18.9 Chronic kidney disease, unspecified; I50.9 Heart failure, unspecified; I83.892 Varicose veins of left lower extremity with other complications; D64.9 Anemia, unspecified; Z87.891 Personal history of nicotine dependence | CPT/HCPCS: 99214 ==

== ENCOUNTER 2023-11-28 13:29 | Oncology outpatient (recurring) (ONCR) | payer MEDICARE, SELFPAY ==
[2023-11-28 13:55] LABS: Basophils # 0.1 10^3/uL (0.0-0.1); Eosinophils # 0.2 10^3/uL (0.0-0.8); Eosinophils % 2.6 %; Hematocrit 29.9 % (36-47); Lymphocytes # 0.7 10^3/uL (0.8-4.8); Lymphocytes % 10.3 %; Mean Corpuscular HGB Conc 28.4 g/dL (30-55); Mean Corpuscular Hemoglobin 28.5 pg (27-33); Mean Corpuscular Volume 100.3 fl (85-98); Mean Platelet Volume 8.4 fL (7.4-10.4); Monocytes # 0.8 10^3/uL (0.2-0.9); Monocytes % 11.7 %; Neutrophils # 5.34 10^3/uL (1.8-7.7); Nucleated Red Blood Cells % 0 %; Platelet Count 264 10^3/cmm (157-399); Red Blood Count 2.98 10^6/uL (3.85-5.65); Red Cell Distribution Width 17.6 % (12.1-15.1); White Blood Count 7.21 10^3/uL (3.29-11.43)
[2023-11-28 14:19] LABS: Alanine Aminotransferase 8 U/L (0-33); Albumin Level 3.7 g/dL (3.5-5.2); Alkaline Phosphatase 129 U/L (35-105); Anion Gap 9.3 (5-19); Aspartate Amino Transferase 17 U/L (0-32); Blood Urea Nitrogen 22 mg/dL (8-23); Calcium 8.1 mg/dL (8.5-10.5); Carbon Dioxide 34 mmol/L (22-29); Chloride 103 mmol/L (98-107); Globulin 2.3 g/dL (1.3-4.6); Glucose 88 mg/dL (65-115); Osmolality Calculated 297 mOsm/kg (285-295); Potassium 4.3 mmol/L (3.5-5.1); Sodium 142 mmol/L (136-145); Total Bilirubin 0.2 mg/dL (0.15-1.2)
[2023-11-28 14:40] LABS: Ferritin 40 ng/mL (15-150); Iron 38 ug/dL (37-145); Percent Saturation 12.7 % (20-50); Total Iron Binding Capacity 298 mcg/dl; Unsaturated Iron Binding 260 ug/dL (112-347)
[2023-11-28] MEDS: ferric carboxy (IVPB) 750 MG in sodium chloride 0.9% (100 ml) 100 ML 345 MG IV (15:37)
== END 2023-12-01 23:59 | disposition home or self-care (01) ==
PROVIDERS: Nurse Practitioner Family; PCP Family Medicine; Visit Provider Internal Medicine Medical Oncology
DX: C50.411 Malignant neoplasm of upper-outer quadrant of right female breast (principal); Z53.9 Procedure and treatment not carried out, unspecified reason; M97.12XD Periprosthetic fracture around internal prosthetic left knee joint, subsequent encounter; M16.12 Unilateral primary osteoarthritis, left hip; X58.XXXA Exposure to other specified factors, initial encounter; S72.452D Displaced supracondylar fracture without intracondylar extension of lower end of left femur, subsequent encounter for closed fracture with routine healing; X58.XXXD Exposure to other specified factors, subsequent encounter; D50.9 Iron deficiency anemia, unspecified; D64.9 Anemia, unspecified; Z79.899 Other long term (current) drug therapy; Z86.711 Personal history of pulmonary embolism; Z86.718 Personal history of other venous thrombosis and embolism; Z79.01 Long term (current) use of anticoagulants; C50.811 Malignant neoplasm of overlapping sites of right female breast; Z17.1 Estrogen receptor negative status [ER-]; Z79.818 Long term (current) use of other agents affecting estrogen receptors and estrogen levels
CPT/HCPCS: 36415; 80053; 82728; 83540; 83550; 85025; 96365; 99214; J1439

== ENCOUNTER 2023-12-03 07:25 | Outpatient (CLI) | payer MEDICARE, SELFPAY ==
--- NOTE | 2023-12-03 07:45 | USCV_ITS ---
Maddison Jenkins Age: 78 Gender: F : 1945 Exam Date: 12/03/2023 07:48 Ordering Phys: Tim Ortega M.D ([email or web address]) Technologist: Marilee Molina Exam Location: [facility] [place] Indication: SOLIS BP: 158 / 60 HR: 58 Rhythm: Sinus Technical Quality: Adequate MEASUREMENTS (Male / Female) Normal Values 2D ECHO LV Diastolic Diameter PLAX 5.2 cm 4.2 - 5.9 / 3.9 - 5.3 cm LV Systolic Diameter PLAX 3.0 cm IVS Diastolic Thickness 0.9 cm 0.6 - 1.0 / 0.6 - 0.9 cm IVS Systolic Thickness 1.4 cm LVPW Diastolic Thickness 1.4 cm 0.6 - 1.0 / 0.6 - 0.9 cm LVPW Systolic Thickness 1.6 cm LVOT Diameter 2.0 cm LV Ejection Fraction 2D Teich 72.4 % LV Ejection Fraction MOD 2C 43.2 % LV Ejection Fraction 2C AL 51.2 % LA Diameter 3.6 cm RA Systolic Volume 4C AL 47.0 ml RA Systolic Volume 4C MOD 48.7 ml Aorta at Sinotubular Diameter 2.4 cm IVC Diameter 2.0 cm M-MODE LA Ao Ratio MM 1.3 AV Cusp Separation MM 1.8 cm DOPPLER AV Peak Velocity 163.0 cm/s LVOT Peak Velocity 104.0 cm/s AV Area Cont Eq vti 2.2 cm squared AV Area Cont Eq pk 2.0 cm squared MV Peak Velocity 130.0 cm/s MV Area PHT 4.6 cm squared Mitral E to A Ratio 1.0 TV Peak Velocity 207.0 cm/s TR Peak Velocity 287.0 cm/s TR Peak Gradient 32.9 mmHg TR Mean Velocity 211.0 cm/s TR Mean Gradient 20.2 mmHg TR Velocity Time Integral 93.4 cm TV Peak E Velocity 59.0 cm/s Right Atrial Pressure 3.0 mmHg Pulmonary Artery Systolic Pressu 35.9 mmHg PV Peak Velocity 117.0 cm/s RV Ejection Time 0.4 s FINDINGS Left Ventricle Left ventricle has normal in size. LV systolic function is normal with EF of 50 to 55%. No regional wall motion abnormalities are seen. Right Ventricle Normal in size and function Right Atrium Normal in size Left Atrium Dilated Mitral Valve Mild mitral annular calcification. Mild mitral regurgitation. Aortic Valve Structurally normal aortic valve. No significant stenosis or regurgitation. Tricuspid Valve Mild tricuspid regurgitation. RVSP is 35 to 40 mmHg. This is consistent with mild pulmonary hypertension Pulmonic Valve Not well visualized Pericardium Normal Aorta Normal in size IVC Appears to be normal CONCLUSIONS LV systolic function is normal with EF of 50 to 55%. Left atrial dilation. Mild mitral regurgitation Mild tricuspid regurgitation Mild pulmonary hypertension Compared to prior echocardiogram from 2021, patient now has mild pulmonary hypertension Tim Ortega MD (Electronically Signed) Final Date: 08 December 2023 12:43 S
== END 2023-12-03 07:26 | disposition home or self-care (01) ==
LOC: RAD 07:26
PROVIDERS: PCP Family Medicine; Visit Provider Internal Medicine
DX: R06.02 Shortness of breath (principal); I08.3 Combined rheumatic disorders of mitral, aortic and tricuspid valves; I27.20 Pulmonary hypertension, unspecified
CPT/HCPCS: 93306

== ENCOUNTER 2023-12-11 10:00 | Oncology outpatient (recurring) (ONCR) | payer MEDICARE, SELFPAY ==
[2023-12-05 08:00] VITALS: BP 150/56; PULSE 49; RESP 18; TEMP 36.4
[2023-12-05 08:36] LABS: Basophils # 0.1 10^3/uL (0.0-0.1); Basophils % 1.1 %; Eosinophils # 0.2 10^3/uL (0.0-0.8); Eosinophils % 4.7 %; Hematocrit 36.7 % (36-47); Lymphocytes # 0.5 10^3/uL (0.8-4.8); Lymphocytes % 11.6 %; Mean Corpuscular HGB Conc 28.3 g/dL (30-55); Mean Corpuscular Hemoglobin 29.5 pg (27-33); Mean Corpuscular Volume 104.3 fl (85-98); Mean Platelet Volume 9.2 fL (7.4-10.4); Monocytes # 0.6 10^3/uL (0.2-0.9); Monocytes % 13.1 %; Neutrophils # 3.21 10^3/uL (1.8-7.7); Neutrophils % 68.9 %; Nucleated Red Blood Cells % 0.4 %; Platelet Count 293 10^3/cmm (157-399); Red Blood Count 3.52 10^6/uL (3.85-5.65); White Blood Count 4.66 10^3/uL (3.29-11.43)
[2023-12-05] MEDS: ferric carboxy (IVPB) 750 MG in sodium chloride 0.9% (100 ml) 100 ML 345 MG IV (08:52)
[2023-12-05 09:28] VITALS: BP 112/68; PULSE 60; RESP 16; TEMP 36.6; O2SAT 96
--- NOTE | 2023-12-11 09:51 | MM_ITS ---
WS: [id number] DIAGNOSTIC BILATERAL DIGITAL BREAST TOMOSYNTHESIS MAMMOGRAPHY WITH CAD HISTORY: HX OF SELF BREAST CANCER COMPARISON: 10/31/2020, 11/10/2020, 11/30/2021 and 12/04/2022 TECHNIQUE: Bilateral craniocaudad, mediolateral oblique, and mediolateral views are submitted with to mosynthesis and SM. Computer aided detection utilized. Breast composition: There are scattered areas of fibroglandular density. Post lumpectomy changes uppe r outer quadrant RIGHT breast. There are adjacent dystrophic calcifications. No recurrent mass or jeannine picious calcifications. Mild skin thickening over the RIGHT breast. Benign coarse calcification upper outer quadrant LEFT breast. IMPRESSION: MM/[place] [id number] BI-RADS: 2-Benign FOLLOW UP: 1 Year Follow-up
== END 2023-12-31 23:59 | disposition home or self-care (01) ==
LOC: RAD 12-12 → ONCMED 12-27 09:58
PROVIDERS: PCP Family Medicine; Visit Provider Internal Medicine Medical Oncology
DX: Z85.3 Personal history of malignant neoplasm of breast; Z53.9 Procedure and treatment not carried out, unspecified reason
CPT/HCPCS: 77062; 82274; 85025; 96365; G0279; J1439

== ENCOUNTER 2024-01-02 12:17 | Oncology outpatient (recurring) (ONCR) | payer MEDICARE, SELFPAY ==
[2024-01-02 12:52] LABS: Basophils # 0.1 10^3/uL (0.0-0.1); Basophils % 1.7 %; Eosinophils # 0.1 10^3/uL (0.0-0.8); Eosinophils % 4.3 %; Hematocrit 35.8 % (36-47); Lymphocytes # 0.3 10^3/uL (0.8-4.8); Lymphocytes % 10.9 %; Mean Corpuscular HGB Conc 28.5 g/dL (30-55); Mean Corpuscular Hemoglobin 30.6 pg (27-33); Mean Corpuscular Volume 107.5 fl (85-98); Monocytes # 0.5 10^3/uL (0.2-0.9); Monocytes % 14.9 %; Neutrophils # 2.06 10^3/uL (1.8-7.7); Neutrophils % 67.9 %; Nucleated Red Blood Cells % 0 %; Platelet Count 159 10^3/cmm (157-399); Red Blood Count 3.33 10^6/uL (3.85-5.65); Red Cell Distribution Width 15.5 % (12.1-15.1); White Blood Count 3.03 10^3/uL (3.29-11.43)
[2024-01-02 13:07] LABS: Alanine Aminotransferase 10 U/L (0-33); Albumin Level 3.7 g/dL (3.5-5.2); Alkaline Phosphatase 97 U/L (35-105); Anion Gap 7.9 (5-19); Aspartate Amino Transferase 28 U/L (0-32); Blood Urea Nitrogen 20 mg/dL (8-23); Calcium 7.5 mg/dL (8.5-10.5); Carbon Dioxide 33 mmol/L (22-29); Chloride 102 mmol/L (98-107); Ferritin 108 ng/mL (15-150); Globulin 2.3 g/dL (1.3-4.6); Glucose 90 mg/dL (65-115); Iron 44 ug/dL (37-145); Osmolality Calculated 288 mOsm/kg (285-295); Percent Saturation 15.7 % (20-50); Potassium 4.9 mmol/L (3.5-5.1); Sodium 138 mmol/L (136-145); Total Bilirubin 0.3 mg/dL (0.15-1.2); Total Iron Binding Capacity 279 mcg/dl; Unsaturated Iron Binding 235 ug/dL (112-347)
== END 2024-01-31 23:59 | disposition home or self-care (01) ==
PROVIDERS: PCP Family Medicine; Visit Provider Internal Medicine Medical Oncology
DX: Z85.3 Personal history of malignant neoplasm of breast (principal); C50.411 Malignant neoplasm of upper-outer quadrant of right female breast; D50.9 Iron deficiency anemia, unspecified; I50.9 Heart failure, unspecified
CPT/HCPCS: 36415; 80053; 82728; 83540; 83550; 85025; 99214

== ENCOUNTER → 2024-01-29 08:48 | Outpatient (BNVA) | payer MEDICARE, SELFPAY | PROVIDERS: PCP Family Medicine; Visit Provider Specialist | DX: M97.12XD Periprosthetic fracture around internal prosthetic left knee joint, subsequent encounter (principal) | CPT/HCPCS: 73560; 73565; 99213 ==

== ENCOUNTER 2024-02-17 08:43 | Outpatient (CLI) | payer MEDICARE, SELFPAY | END 2024-02-17 08:44 | disposition home or self-care (01) | LOC: LAB 08:45 | PROVIDERS: PCP Family Medicine; Visit Provider Nurse Practitioner Family | DX: D50.9 Iron deficiency anemia, unspecified (principal) | CPT/HCPCS: 82274 ==

== ENCOUNTER 2024-02-27 16:00 | Oncology outpatient (recurring) (ONCR) | payer MEDICARE, SELFPAY ==
[2024-02-06 13:00] LABS: Basophils # 0.1 10^3/uL (0.0-0.1); Basophils % 1.3 %; Eosinophils # 0.5 10^3/uL (0.0-0.8); Eosinophils % 7.6 %; Hematocrit 32.2 % (36-47); Lymphocytes # 1.6 10^3/uL (0.8-4.8); Lymphocytes % 22.4 %; Mean Corpuscular HGB Conc 27.6 g/dL (30-55); Mean Corpuscular Hemoglobin 24.8 pg (27-33); Mean Corpuscular Volume 89.7 fl (85-98); Mean Platelet Volume 8.8 fL (7.4-10.4); Monocytes % 13.3 %; Neutrophils # 3.95 10^3/uL (1.8-7.7); Neutrophils % 55.3 %; Nucleated Red Blood Cells % 0 %; Platelet Count 248 10^3/cmm (157-399); Red Blood Count 3.59 10^6/uL (3.85-5.65); Red Cell Distribution Width 17.6 % (12.1-15.1); White Blood Count 7.14 10^3/uL (3.29-11.43)
[2024-02-06 13:16] LABS: Alanine Aminotransferase 7 U/L (0-33); Albumin Level 3.7 g/dL (3.5-5.2); Alkaline Phosphatase 111 U/L (35-105); Anion Gap 11.5 (5-19); Aspartate Amino Transferase 17 U/L (0-32); Blood Urea Nitrogen 17 mg/dL (8-23); Carbon Dioxide 32 mmol/L (22-29); Chloride 104 mmol/L (98-107); Ferritin 31 ng/mL (15-150); Globulin 2.4 g/dL (1.3-4.6); Glucose 105 mg/dL (65-115); Iron 17 ug/dL (37-145); Osmolality Calculated 298 mOsm/kg (285-295); Percent Saturation 5.1 % (20-50); Potassium 4.5 mmol/L (3.5-5.1); Sodium 143 mmol/L (136-145); Total Bilirubin 0.3 mg/dL (0.15-1.2); Total Iron Binding Capacity 331 mcg/dl; Total Protein 6.1 g/dL (6.6-8.7); Unsaturated Iron Binding 314 ug/dL (112-347)
[2024-02-10 08:58] VITALS: BP 175/54; PULSE 65; RESP 18; TEMP 37; O2SAT 98
[2024-02-10] MEDS: ferric carboxy (IVPB) 750 MG in sodium chloride 0.9% (100 ml) 100 ML 345 MG IV (09:24)
[2024-02-10 09:55] VITALS: BP 152/62; TEMP 36.9
[2024-02-17 09:28] VITALS: BP 152/61; PULSE 57; RESP 17; TEMP 36.2; O2SAT 95
[2024-02-17] MEDS: ferric carboxy (IVPB) 750 MG in sodium chloride 0.9% (100 ml) 100 ML 345 MG IV (09:29)
[2024-02-17 09:59] VITALS: BP 159/55; PULSE 55; RESP 16; TEMP 36.6; O2SAT 96
[2024-02-25 13:40] LABS: Basophils # 0.1 10^3/uL (0.0-0.1); Eosinophils # 0.6 10^3/uL (0.0-0.8); Eosinophils % 9.4 %; Hematocrit 40.8 % (36-47); Lymphocytes # 1.2 10^3/uL (0.8-4.8); Lymphocytes % 20.1 %; Mean Corpuscular HGB Conc 28.2 g/dL (30-55); Mean Corpuscular Hemoglobin 27.4 pg (27-33); Mean Corpuscular Volume 97.1 fl (85-98); Mean Platelet Volume 8.9 fL (7.4-10.4); Monocytes # 0.8 10^3/uL (0.2-0.9); Monocytes % 12.8 %; Neutrophils % 56.5 %; Nucleated Red Blood Cells % 0 %; Platelet Count 222 10^3/cmm (157-399); Red Cell Distribution Width 24.2 % (12.1-15.1); Reticulocyte % 5.5 % (0.5-2.0); White Blood Count 6.18 10^3/uL (3.29-11.43)
[2024-02-25 13:58] LABS: Alanine Aminotransferase 10 U/L (0-33); Albumin Level 3.9 g/dL (3.5-5.2); Alkaline Phosphatase 108 U/L (35-105); Anion Gap 9.6 (5-19); Aspartate Amino Transferase 25 U/L (0-32); Blood Urea Nitrogen 13 mg/dL (8-23); Calcium 9.1 mg/dL (8.5-10.5); Carbon Dioxide 32 mmol/L (22-29); Chloride 103 mmol/L (98-107); Creatinine Clr Calc Pharmacy 54.0632; Ferritin 447 ng/mL (15-150); Globulin 2.2 g/dL (1.3-4.6); Glucose 83 mg/dL (65-115); Iron 58 ug/dL (37-145); Lactate Dehydrogenase 219 U/L (135-214); Osmolality Calculated 289 mOsm/kg (285-295); Potassium 4.6 mmol/L (3.5-5.1); Sodium 140 mmol/L (136-145); Total Bilirubin 0.4 mg/dL (0.15-1.2); Total Iron Binding Capacity 305 mcg/dl; Total Protein 6.1 g/dL (6.6-8.7); Unsaturated Iron Binding 247 ug/dL (112-347)
[2024-02-27] MEDS: iohexol 350 mg/mL 500 mL Btl (per mL) PO (15:54)
--- NOTE | 2024-02-27 16:00 | CTR_ITS ---
PROCEDURE INFORMATION: Exam: CT Chest With Contrast; Diagnostic Exam date and time: 02/27/2024 4:01 PM Age: 78 years old Clinical indication: Constipation; Other: Change in bowel habits; Prior surgery; Surgery date: 6+ months; Surgery type: Gb, hyst, back x 4; Patient HX: HX of breast cancer; Additional info: C/O change in bm size, abd pain with bm, iron def anemia TECHNIQUE: Imaging protocol: Diagnostic computed tomography of the chest with contrast. Radiation optimization: All CT scans at this facility use at least one of these dose optimization techniques: automated exposure control; mA and/or kV adjustment per patient size (includes targeted exams where dose is matched to clinical indication); or iterative reconstruction. Contrast material: OOMNI 350; Contrast volume: 100 ml; Contrast route: INTRAVENOUS (IV); COMPARISON: CT angio chest [id number] 01/12/2022 9:04 AM RADIATION DOSE METRICS: Total DLP (mGy-cm): 638.95 FINDINGS: Lungs: Small consolidative density laterally right lung base likely secondary to subsegmental atelectasis. Diffuse upper lobe emphysematous changes, stable. Pleural spaces: Unremarkable. No pneumothorax. No pleural effusion. Heart: Heart is not significantly enlarged. There are mild calcifications of the coronary arteries. No significant pericardial effusion. Mediastinal space: Scattered chronic granulomatous calcifications within the mediastinum, stable. Scattered small mediastinal lymph nodes unchanged and likely benign by size criteria. Lymph nodes: Unremarkable. No enlarged lymph nodes. Vasculature: Scattered atherosclerotic changes of the thoracic aorta. No aortic aneurysm. Bones/joints: Mild-moderate degenerative changes throughout the thoracic spine. Prior ACDF. Interval development of multiple small sclerotic bone lesions within the manubrium concerning for bone metastasis. Soft tissues: Post radiation changes and focal scarring right breast consistent with history of prior breast carcinoma, stable. PROCEDURE INFORMATION: Exam: CT Abdomen And Pelvis With Contrast Exam date and time: 02/27/2024 4:01 PM Age: 78 years old Clinical indication: Constipation; Other: Change in bowel habits; Prior surgery; Surgery date: 6+ months; Surgery type: Gb, hyst, back x 4; Patient HX: HX of breast cancer; Additional info: C/O change in bm size, abd pain with bm, iron def anemia TECHNIQUE: Imaging protocol: Computed tomography of the abdomen and pelvis with contrast. Radiation optimization: All CT scans at this facility use at least one of these dose optimization techniques: automated exposure control; mA and/or kV adjustment per patient size (includes targeted exams where dose is matched to clinical indication); or iterative reconstruction. Contrast material: OOMNI 350; Contrast volume: 100 ml; Contrast route: INTRAVENOUS (IV); COMPARISON: CT abdomen maria eugenia connolly [id number] 01/12/2022 8:23 AM RADIATION DOSE METRICS: Total DLP (mGy-cm): 638.95 FINDINGS: Lungs: Lung bases are clear. Liver: Stable small hypodensity right lobe of liver otherwise liver is unremarkable. Gallbladder and biliary ducts: Gallbladder is been removed. There is mild biliary dilatation of the intrahepatic and extrahepatic bile ducts relatively stable. Pancreas: Unremarkable. Main pancreatic duct is not significantly dilated. Spleen: Normal. No splenomegaly. Adrenal glands: Normal. No mass. Kidneys and ureters: Nonobstructing left renal calculi and small bilateral renal cysts, stable. Stomach and bowel: There is apparent mural thickening at the gastroduodenal junction that may be transient in nature which should be correlated for possible peptic duodenitis. Small bowel loops are unremarkable. Scattered diverticuli large bowel without evidence of acute diverticulitis. Appendix: No evidence of appendicitis. Intraperitoneal space: Unremarkable. No free air. No significant fluid collection. Vasculature: Scattered atherosclerotic changes of the abdominal aorta and iliac vessels. No aortic aneurysm. There is an IVC filter unchanged in position. Lymph nodes: Unremarkable. No enlarged lymph nodes. Urinary bladder: Unremarkable as visualized. Reproductive: Uterus has been removed. Bones/joints: Extensive of postop changes of the lumbar spine with posterior spinal decompression and instrumentation extending from L2 through L4. Few small circumscribed radiolucent bone lesions within the pelvis unchanged, likely benign. No suspicious bone lesions detected. Soft tissues: Unremarkable. CT/CT chest abdpel w/*[id number] IMPRESSION: 1. COPD with diffuse upper lobe emphysematous changes and small area of subsegmental atelectasis right lung base. 2. Interval development of the small sclerotic bone lesions within the sternum suspicious for bone metastasis. 3. Stable post radiation changes right breast. IMPRESSION: 1. Focal mural thickening at the gastroduodenal junction, nonspecific and should be correlated for possible peptic disease. 2. Colonic diverticulosis. No evidence of acute diverticulitis. 3. Prior cholecystectomy with stable dilatation of the biliary tree. 4. Additional chronic findings as above. COMMENTS: For patients with an IVC filter, recommend assessment for a management plan for the patient's IVC filter. If there is no established management plan, recommend referral to an interventional clinician on a nonemergent basis for evaluation.
[2024-02-27] MEDS: iohexol 350 mg/mL 500 mL Btl (per mL) IV (16:06)
== END 2024-03-01 23:59 | disposition home or self-care (01) ==
LOC: ONCMED 03-17 07:36
PROVIDERS: Internal Medicine Medical Oncology; PCP Family Medicine; Visit Provider Nurse Practitioner Family
DX: Z53.9 Procedure and treatment not carried out, unspecified reason (principal); D50.9 Iron deficiency anemia, unspecified; R10.9 Unspecified abdominal pain; K57.90 Diverticulosis of intestine, part unspecified, without perforation or abscess without bleeding
CPT/HCPCS: 36415; 71260; 74177; 80053; 82728; 83010; 83540; 83550; 83615; 85025; 85045; 96365; 99214; J1439; Q9967

== ENCOUNTER → 2024-03-06 08:42 | Outpatient (BNVA) | payer MEDICARE, SELFPAY | PROVIDERS: PCP Family Medicine; Visit Provider Nurse Practitioner Family | DX: L57.0 Actinic keratosis (principal); M70.22 Olecranon bursitis, left elbow; L82.1 Other seborrheic keratosis; L57.8 Other skin changes due to chronic exposure to nonionizing radiation; D69.2 Other nonthrombocytopenic purpura | CPT/HCPCS: 17000; 99214 ==

== ENCOUNTER 2024-03-24 13:00 | Oncology outpatient (recurring) (ONCR) | payer MEDICARE, SELFPAY ==
[2024-03-19 11:03] LABS: Basophils # 0.1 10^3/uL (0.0-0.1); Basophils % 1.3 %; Eosinophils # 0.6 10^3/uL (0.0-0.8); Eosinophils % 9.5 %; Hematocrit 39.9 % (36-47); Lymphocytes # 1.5 10^3/uL (0.8-4.8); Lymphocytes % 24.2 %; Mean Corpuscular HGB Conc 29.1 g/dL (30-55); Mean Corpuscular Volume 96.4 fl (85-98); Mean Platelet Volume 8.7 fL (7.4-10.4); Monocytes # 0.8 10^3/uL (0.2-0.9); Monocytes % 13.2 %; Neutrophils # 3.09 10^3/uL (1.8-7.7); Neutrophils % 51.6 %; Nucleated Red Blood Cells % 0 %; Platelet Count 214 10^3/cmm (157-399); Red Blood Count 4.14 10^6/uL (3.85-5.65); Red Cell Distribution Width 19.4 % (12.1-15.1); White Blood Count 5.99 10^3/uL (3.29-11.43)
[2024-03-19 11:20] LABS: Alanine Aminotransferase 12 U/L (0-33); Alkaline Phosphatase 131 U/L (35-105); Anion Gap 11.3 (5-19); Aspartate Amino Transferase 28 U/L (0-32); Blood Urea Nitrogen 20 mg/dL (8-23); Calcium 8.8 mg/dL (8.5-10.5); Carbon Dioxide 30 mmol/L (22-29); Chloride 101 mmol/L (98-107); Ferritin 108 ng/mL (15-150); Globulin 2.4 g/dL (1.3-4.6); Glucose 91 mg/dL (65-115); Iron 49 ug/dL (37-145); Osmolality Calculated 288 mOsm/kg (285-295); Percent Saturation 17.1 % (20-50); Potassium 4.3 mmol/L (3.5-5.1); Sodium 138 mmol/L (136-145); Total Bilirubin 0.4 mg/dL (0.15-1.2); Total Iron Binding Capacity 285 mcg/dl; Total Protein 6.4 g/dL (6.6-8.7); Unsaturated Iron Binding 236 ug/dL (112-347)
[2024-03-24 13:13] VITALS: BP 137/67; PULSE 62; RESP 16; TEMP 36.5; O2SAT 94
[2024-03-24] MEDS: ferric carboxy (PYXIS) 750 MG in sodium chloride 0.9% (100 ml) 100 ML 345 MG IV (13:49)
== END 2024-04-01 23:59 | disposition home or self-care (01) ==
PROVIDERS: PCP Family Medicine; Visit Provider Nurse Practitioner Family
DX: C50.411 Malignant neoplasm of upper-outer quadrant of right female breast; Z53.9 Procedure and treatment not carried out, unspecified reason; Z79.899 Other long term (current) drug therapy
CPT/HCPCS: 36415; 80053; 82728; 83540; 83550; 85025; 96365; 99214; J1439

== ENCOUNTER 2024-04-30 10:15 | Oncology outpatient (recurring) (ONCR) | payer MEDICARE, SELFPAY ==
[2024-04-24 09:55] LABS: Basophils % 0.5 %; Eosinophils # 0.2 10^3/uL (0.0-0.8); Eosinophils % 2.3 %; Hematocrit 39.8 % (36-47); Lymphocytes # 1.3 10^3/uL (0.8-4.8); Lymphocytes % 20.3 %; Mean Corpuscular HGB Conc 29.6 g/dL (30-55); Mean Corpuscular Hemoglobin 29.6 pg (27-33); Mean Corpuscular Volume 99.7 fl (85-98); Mean Platelet Volume 8.6 fL (7.4-10.4); Monocytes # 1.1 10^3/uL (0.2-0.9); Monocytes % 16.4 %; Neutrophils # 3.87 10^3/uL (1.8-7.7); Neutrophils % 60.3 %; Nucleated Red Blood Cells % 0 %; Platelet Count 237 10^3/cmm (157-399); Red Blood Count 3.99 10^6/uL (3.85-5.65); Red Cell Distribution Width 16.6 % (12.1-15.1); White Blood Count 6.41 10^3/uL (3.29-11.43)
[2024-04-24 10:03] VITALS: BP 145/79; PULSE 74; RESP 16; TEMP 36.4; O2SAT 98
[2024-04-24 10:16] LABS: Alanine Aminotransferase 13 U/L (0-33); Albumin Level 4.3 g/dL (3.5-5.2); Alkaline Phosphatase 137 U/L (35-105); Anion Gap 11.4 (5-19); Aspartate Amino Transferase 26 U/L (0-32); Blood Urea Nitrogen 30 mg/dL (8-23); Calcium 9.2 mg/dL (8.5-10.5); Carbon Dioxide 35 mmol/L (22-29); Chloride 100 mmol/L (98-107); Ferritin 110 ng/mL (15-150); Globulin 2.4 g/dL (1.3-4.6); Glucose 63 mg/dL (65-115); Iron 164 ug/dL (37-145); Osmolality Calculated 298 mOsm/kg (285-295); Percent Saturation 51.7 % (20-50); Potassium 4.4 mmol/L (3.5-5.1); Sodium 142 mmol/L (136-145); Total Bilirubin 0.4 mg/dL (0.15-1.2); Total Iron Binding Capacity 317 mcg/dl; Total Protein 6.7 g/dL (6.6-8.7); Unsaturated Iron Binding 153 ug/dL (112-347)
--- NOTE | 2024-04-30 10:15 | CT_ITS ---
WS: [id number] CONTRAST-ENHANCED CT OF THE NECK. TECHNIQUE: Contrast-enhanced CT of the neck with coronal and sagittal reformatted images. CLINICAL INFORMATION: neck/head pain post hitting of head, hx of fusion COMPARISON: CT cervical spine 04/23/2023 DLP: 207.[address] scans at [facility] use at least one of these dose optimization techniques: automated e xposure control; mA and/or kV adjustment per patient size (includes targeted exams where dose is matc hed to clinical indication); or iterative reconstruction. FINDINGS: Paranasal sinuses appear well aerated. Mastoid air cells well aerated. Parotid glands are normal. Nor mal submandibular glands. Normal posterior nasopharynx. Normal parapharyngeal fat. Normal epiglottis. No evidence of supraglottic or glottic mass. Normal subglottic airway. Few small thyroid nodules RIG HT greater than LEFT. This can be followed up with ultrasound. Some images degraded due to beam harde madelin artifact from extensive cervical fusion. Chronic emphysematous changes in the lung apices. No cervical lymphadenopathy. Straightening of normal cervical lordosis with extensive cervical fusion. Slight retrolisthesis C2 on C3 appears stable. Alignment appears unchanged. Hardware appears stable compared to previous. If per sistent neck pain dedicated cervical spine CT could be performed for better anatomic detail. Mild reji tral canal stenosis C2-3 appears similar to previous. Osteopenia. Mild carotid bulb calcification. CT/CT neck w con* [id number] IMPRESSION: 1. No evidence of supraglottic or glottic mass. Normal subglottic airway. 2. No cervical lymphadenopathy. 3. Normal salivary glands. 4. Extensive cervical fusion. Alignment appears unchanged compared to previous . If persistent neck pain dedicated cervical spine CT could be performed for be tter anatomic detail. If there is concern for cord contusion MRI could be attem pted but would be limited due to the extensive hardware.
[2024-04-30] MEDS: iohexol 350 mg/mL 500 mL Btl (per mL) IV (10:35)
== END 2024-05-02 23:59 | disposition home or self-care (01) ==
LOC: RAD 05-01 → ONCMED 05-01 08:37
PROVIDERS: PCP Family Medicine; Visit Provider Nurse Practitioner Family
DX: C50.411 Malignant neoplasm of upper-outer quadrant of right female breast; Z85.3 Personal history of malignant neoplasm of breast
CPT/HCPCS: 36415; 70491; 80053; 82728; 83540; 83550; 85025; 99214; Q9967

== ENCOUNTER → 2024-05-14 14:44 | Outpatient (BNVA) | payer MEDICARE, SELFPAY | PROVIDERS: PCP Family Medicine; Visit Provider Internal Medicine | DX: R07.89 Other chest pain (principal); I13.0 Hypertensive heart and chronic kidney disease with heart failure and stage 1 through stage 4 chronic kidney disease, or unspecified chronic kidney disease; I50.9 Heart failure, unspecified; N18.9 Chronic kidney disease, unspecified; I83.892 Varicose veins of left lower extremity with other complications; D64.9 Anemia, unspecified; Z87.891 Personal history of nicotine dependence | CPT/HCPCS: 99214 ==

== ENCOUNTER 2024-06-05 09:17 | Oncology outpatient (recurring) (ONCR) | payer MEDICARE, SELFPAY ==
[2024-06-05 10:11] LABS: Basophils # 0.1 10^3/uL (0.0-0.1); Eosinophils # 0.2 10^3/uL (0.0-0.8); Eosinophils % 4.3 %; Hematocrit 40.8 % (36-47); Lymphocytes % 19.6 %; Mean Corpuscular HGB Conc 29.7 g/dL (30-55); Mean Corpuscular Hemoglobin 30.9 pg (27-33); Mean Corpuscular Volume 104.1 fl (85-98); Mean Platelet Volume 8.7 fL (7.4-10.4); Monocytes # 0.7 10^3/uL (0.2-0.9); Monocytes % 12.8 %; Neutrophils % 62.1 %; Nucleated Red Blood Cells % 0 %; Platelet Count 192 10^3/cmm (157-399); Red Blood Count 3.92 10^6/uL (3.85-5.65); Red Cell Distribution Width 14.6 % (12.1-15.1); White Blood Count 5.15 10^3/uL (3.29-11.43)
[2024-06-05 10:26] LABS: Alanine Aminotransferase 15 U/L (0-33); Albumin Level 3.9 g/dL (3.5-5.2); Alkaline Phosphatase 85 U/L (35-105); Anion Gap 11.2 (5-19); Aspartate Amino Transferase 29 U/L (0-32); Blood Urea Nitrogen 19 mg/dL (8-23); Calcium 8.8 mg/dL (8.5-10.5); Carbon Dioxide 34 mmol/L (22-29); Chloride 100 mmol/L (98-107); Ferritin 55 ng/mL (15-150); Globulin 2.4 g/dL (1.3-4.6); Glucose 86 mg/dL (65-115); Iron 203 ug/dL (37-145); Osmolality Calculated 294 mOsm/kg (285-295); Percent Saturation 57.1 % (20-50); Potassium 4.2 mmol/L (3.5-5.1); Sodium 141 mmol/L (136-145); Total Bilirubin 0.5 mg/dL (0.15-1.2); Total Iron Binding Capacity 355 mcg/dl; Total Protein 6.3 g/dL (6.6-8.7); Unsaturated Iron Binding 152 ug/dL (112-347)
== END 2024-07-02 23:59 | disposition home or self-care (01) ==
PROVIDERS: PCP Family Medicine; Visit Provider Nurse Practitioner Family
DX: C50.411 Malignant neoplasm of upper-outer quadrant of right female breast (principal); Z85.3 Personal history of malignant neoplasm of breast; D50.9 Iron deficiency anemia, unspecified; Z87.891 Personal history of nicotine dependence; Z79.899 Other long term (current) drug therapy; I50.9 Heart failure, unspecified
CPT/HCPCS: 36415; 80053; 82728; 83540; 83550; 85025; 99214

== ENCOUNTER 2024-07-15 08:11 | Outpatient (CLI) | payer MEDICARE, SELFPAY ==
--- NOTE | 2024-07-15 08:15 | FL_ITS ---
WS: [id number] Barium swallow and esophagram, 07/15/2024 Clinical Data: CHRONIC LARYNGITIS/DYSPHAGIA,OROPHARYNGEAL PHASE Comparison: Barium swallow and esophagram, 01/03/2015 Fluoroscopy time: 1min [id number] # of spot films: 7 Findings: The patient swallowed the thick and thin barium, and it flowed through the hypopharynx without hesita tion. There was penetration and aspiration. The patient experienced coughing. There is an anterior ce rvical disc fusion from C3-C6. No stricture, mass, polyp or erosion was seen. The barium entered the esophagus and there were intermittent tertiary contractions interspaced with i ntermittent normal esophageal contractions. No hiatal hernia, reflux, stricture, polyp, mass, erosio n or ulcer was noted. The barium passed slowly into the stomach with the patient in the prone positio n. There was a posterior lumbar fusion and a vena caval filter. FL/FL barium swallow [id number] Impression: 1. Aspiration and penetration which caused coughing. 2. Occasional tertiary contractions. 3. Delayed passage of barium into the stomach with the patient in the prone pos ition.
== END 2024-07-15 08:12 | disposition home or self-care (01) ==
LOC: RAD 08:11
PROVIDERS: PCP Family Medicine; Visit Provider Specialist
DX: J37.0 Chronic laryngitis (principal); R13.12 Dysphagia, oropharyngeal phase; R94.2 Abnormal results of pulmonary function studies
CPT/HCPCS: 74220

== ENCOUNTER 2024-08-03 10:47 | Outpatient (CLI) | payer MEDICARE, SELFPAY ==
--- NOTE | 2024-08-03 10:52 | FL_ITS ---
WS: [id number] FL barium swallow modifd [id number] REASON FOR EXAM: Oropharyngeal dysphagia FLUOROSCOPY TIME: 2min [id number] # OF SPOT FILMS: None FINDINGS: Examination was supervised by the speech therapy department. The patient was examined in the sitting upright lateral position. The swallowing of varying consisten cies of barium was monitored fluoroscopically and video recorded. A detailed report of the swallowing will be rendered by the speech therapy department. Anterior plate and screw There was penetration without navya aspiration. No obstruction. FL/FL barium swallow modifd [id number] IMPRESSION: Modified barium swallow as above.
== END 2024-08-03 10:48 | disposition home or self-care (01) ==
LOC: RAD 10:49
PROVIDERS: PCP Family Medicine; Visit Provider Specialist
DX: J37.0 Chronic laryngitis (principal); R13.12 Dysphagia, oropharyngeal phase
CPT/HCPCS: 74230; 92611

== ENCOUNTER 2024-08-07 08:17 | Oncology outpatient (recurring) (ONCR) | payer MEDICARE, SELFPAY ==
[2024-08-07 09:01] LABS: Basophils # 0.1 10^3/uL (0.0-0.1); Basophils % 1.5 %; Eosinophils # 0.3 10^3/uL (0.0-0.8); Eosinophils % 6.4 %; Hematocrit 37.4 % (36-47); Lymphocytes # 1.1 10^3/uL (0.8-4.8); Mean Corpuscular HGB Conc 28.3 g/dL (30-55); Mean Corpuscular Hemoglobin 27.2 pg (27-33); Mean Corpuscular Volume 95.9 fl (85-98); Mean Platelet Volume 8.9 fL (7.4-10.4); Monocytes # 0.6 10^3/uL (0.2-0.9); Monocytes % 12.7 %; Neutrophils # 2.76 10^3/uL (1.8-7.7); Neutrophils % 57.2 %; Nucleated Red Blood Cells % 0 %; Platelet Count 222 10^3/cmm (157-399); Red Cell Distribution Width 15.9 % (12.1-15.1); White Blood Count 4.82 10^3/uL (3.29-11.43)
[2024-08-07 09:18] LABS: Alanine Aminotransferase 14 U/L (0-33); Alkaline Phosphatase 85 U/L (35-105); Anion Gap 12.1 (5-19); Aspartate Amino Transferase 31 U/L (0-32); Blood Urea Nitrogen 24 mg/dL (8-23); Calcium 9.4 mg/dL (8.5-10.5); Carbon Dioxide 35 mmol/L (22-29); Chloride 96 mmol/L (98-107); Globulin 2.2 g/dL (1.3-4.6); Glucose 80 mg/dL (65-115); Osmolality Calculated 291 mOsm/kg (285-295); Potassium 4.1 mmol/L (3.5-5.1); Sodium 139 mmol/L (136-145); Total Bilirubin 0.4 mg/dL (0.15-1.2); Total Protein 6.2 g/dL (6.6-8.7)
[2024-08-07 14:20] LABS: Ferritin 39 ng/mL (15-150); Iron 125 ug/dL (37-145); Percent Saturation 33.9 % (20-50); Total Iron Binding Capacity 368 mcg/dl; Unsaturated Iron Binding 243 ug/dL (112-347)
== END 2024-09-01 23:59 | disposition home or self-care (01) ==
PROVIDERS: PCP Family Medicine; Visit Provider Nurse Practitioner Family
DX: C50.411 Malignant neoplasm of upper-outer quadrant of right female breast (principal); D50.9 Iron deficiency anemia, unspecified; Z85.3 Personal history of malignant neoplasm of breast; Z87.891 Personal history of nicotine dependence; Z79.899 Other long term (current) drug therapy; I50.9 Heart failure, unspecified
CPT/HCPCS: 36415; 80053; 82728; 83540; 83550; 85025; 99213

== ENCOUNTER → 2024-09-23 07:52 | Outpatient (BNVA) | payer MEDICARE, SELFPAY | PROVIDERS: PCP Family Medicine; Visit Provider Nurse Practitioner Family | DX: L57.8 Other skin changes due to chronic exposure to nonionizing radiation (principal); D69.2 Other nonthrombocytopenic purpura; L21.8 Other seborrheic dermatitis; S50.911A Unspecified superficial injury of right forearm, initial encounter; X58.XXXA Exposure to other specified factors, initial encounter; Z08 Encounter for follow-up examination after completed treatment for malignant neoplasm; Z85.828 Personal history of other malignant neoplasm of skin; L57.0 Actinic keratosis; L56.8 Other specified acute skin changes due to ultraviolet radiation | CPT/HCPCS: 17000; 99214 ==

== ENCOUNTER → 2024-09-30 13:04 | Outpatient (BNVA) | payer MEDICARE, SELFPAY | PROVIDERS: PCP Family Medicine; Visit Provider Specialist | DX: M97 Periprosthetic fracture around internal prosthetic joint; X58.XXXS Exposure to other specified factors, sequela | CPT/HCPCS: 73552; 73560; 73565; 99215 ==

== ENCOUNTER 2024-10-14 12:58 | Oncology outpatient (recurring) (ONCR) | payer MEDICARE, SELFPAY ==
[2024-10-14 13:43] LABS: Basophils # 0.1 10^3/uL (0.0-0.1); Eosinophils # 0.4 10^3/uL (0.0-0.8); Eosinophils % 6.7 %; Hematocrit 37.3 % (36-47); Lymphocytes % 19.3 %; Mean Corpuscular HGB Conc 27.3 g/dL (30-55); Mean Corpuscular Hemoglobin 25.6 pg (27-33); Mean Corpuscular Volume 93.5 fl (85-98); Mean Platelet Volume 9.4 fL (7.4-10.4); Monocytes # 0.9 10^3/uL (0.2-0.9); Monocytes % 16.6 %; Neutrophils # 2.94 10^3/uL (1.8-7.7); Neutrophils % 56.2 %; Nucleated Red Blood Cells % 0 %; Platelet Count 280 10^3/cmm (157-399); Red Blood Count 3.99 10^6/uL (3.85-5.65); Red Cell Distribution Width 14.6 % (12.1-15.1); White Blood Count 5.23 10^3/uL (3.29-11.43)
[2024-10-14 14:01] LABS: Alanine Aminotransferase 12 U/L (0-33); Albumin Level 4.1 g/dL (3.5-5.2); Alkaline Phosphatase 94 U/L (35-105); Aspartate Amino Transferase 26 U/L (0-32); Blood Urea Nitrogen 20 mg/dL (8-23); Carbon Dioxide 39 mmol/L (22-29); Chloride 100 mmol/L (98-107); Ferritin 29 ng/mL (15-150); Globulin 2.3 g/dL (1.3-4.6); Glucose 99 mg/dL (65-115); Iron 27 ug/dL (37-145); Osmolality Calculated 303 mOsm/kg (285-295); Percent Saturation 6.6 % (20-50); Sodium 145 mmol/L (136-145); Total Bilirubin 0.4 mg/dL (0.15-1.2); Total Iron Binding Capacity 408 mcg/dl; Total Protein 6.4 g/dL (6.6-8.7); Unsaturated Iron Binding 381 ug/dL (112-347)
== END 2024-10-30 23:59 | disposition home or self-care (01) ==
PROVIDERS: PCP Family Medicine; Visit Provider Nurse Practitioner Family
DX: D50.9 Iron deficiency anemia, unspecified (principal); Z85.3 Personal history of malignant neoplasm of breast; Z87.891 Personal history of nicotine dependence; Z79.899 Other long term (current) drug therapy; Z92.3 Personal history of irradiation; Z92.23 Personal history of estrogen therapy
CPT/HCPCS: 36415; 80053; 82728; 83540; 83550; 85025; 99213

== ENCOUNTER 2024-10-20 07:14 | Outpatient (CLI) | payer MEDICARE, SELFPAY ==
--- NOTE | 2024-10-20 08:00 | NM_ITS ---
WS: [id number] THREE-PHASE BONE SCAN HISTORY: Pain LEFT leg. Prior fracture with ORIF. Fracture 2 years ago. COMPARISON: 11/26/2013, radiograph 09/30/2024 Patient is is injected with 24.9 mCi Tc99m HDP intravenously. Immediate angiographic phase imaging is performed over the area of concern. Static blood pool imaging also performed. Two-hour whole-body scintigrams performed in anterior and posterior projections. Additional large field of view imaging sub mitted as necessary. Angiographic and blood pool phase imaging centered over the knees and thighs is appropriate. Photopenic defects in the knees from prior arthroplasties. 2-hour delayed imaging demonstrates abnormal uptake in the mid to distal LEFT femur closely associated with the orthopedic hardware and prior LEFT femur fracture. Moderately intense uptake along the mid lateral LEFT femur probably corresponds to the most superior screw. There is a lucency surrounding the superior screw as it inserts through the lateral cortex. There is a additional increased uptake in the distal third of the femur which probably corresponds to the distal screws or the bony exuberance. Around the fourth screw is a slight lucency in the medial femoral cortex. Increased uptake continues into the distal femur along the femoral condyles. On the recent radiograph there is a sclerotic line extending obliquely through the distal third of the femur which may be a healing trabecular injury. Moderate AC joint arthritis. No rib abnormalities. Normal uptake in the soft tissue and kidneys. NM/NM bone 3 phase [id number] IMPRESSION: 1. No osteomyelitis of cellulitis associated with the LEFT femur arthroplasty. 2. There is abnormal uptake at several locations along the plate and screw fix ation of the prior LEFT femur fracture. There are subtle lucencies seen on the radiograph which may indicate loosening. Possibility of trabecular injury with microfracture should also be considered. There is a sclerotic oblique line seen on the prior radiograph in the distal third of the femur.
== END 2024-10-20 07:15 | disposition home or self-care (01) ==
LOC: RAD 07:15
PROVIDERS: PCP Family Medicine; Visit Provider Specialist
DX: M25.562 Pain in left knee (principal); M97.12XD Periprosthetic fracture around internal prosthetic left knee joint, subsequent encounter; R93.89 Abnormal findings on diagnostic imaging of other specified body structures; M13.819 Other specified arthritis, unspecified shoulder
CPT/HCPCS: 78315; A9561

== ENCOUNTER 2024-11-04 13:26 | Emergency (ER) | payer MEDICARE, SELFPAY ==
[2024-11-04 13:28] VITALS: BP 139/67; PULSE 65; RESP 16; TEMP 36.8; O2SAT 94; BMI 25.9
--- NOTE | 2024-11-04 13:32 | W.ED.FALL ---
HPI - Fall General: Chief Complaint: Fall Stated Complaint: fall - face lac Time Seen by Provider: 11/04/24 13:29 Source: patient Mode of arrival: ambulatory Limitations: no limitations History of Present Illness: 79-year-old female states she tripped and fell at home hit her head on tile. She does have a laceration left eyebrow she has a headache she denies loss consciousness denies neck pain she denies any other injury she is on Eliquis. Rates her headache a 4 out of 10 Associated symptoms-after fall: Reports headache(s); Denies abdominal pain, chest pain or neck pain Related Data Home Medications ?Medication ?Instructions ?Recorded ?Confirmed ferrous sulfate 324 mg (65 mg 324 mg PO DAILY 09/09/19 11/04/24 iron) tablet,delayed release magnesium oxide 500 mg capsule 500 mg PO DAILY 12/10/19 11/04/24 mecobalamin (vitamin B12) 1,000 1,000 mcg PO DAILY 12/10/19 11/04/24 mcg chewable tablet fluticasone propionate 50 1 spray intranasal BID 01/26/22 11/04/24 mcg/actuation nasal spray,suspension citalopram 20 mg tablet 1 tab PO DAILY 06/19/22 11/04/24 donepezil 10 mg tablet 1 tab PO DAILY 06/19/22 11/04/24 pantoprazole 40 mg tablet,delayed 40 tab PO DAILY 06/19/22 11/04/24 release rosuvastatin 10 mg tablet 1 tab PO QPM 06/19/22 11/04/24 bumetanide 1 mg tablet 1 mg PO DAILY 07/30/22 11/04/24 cholecalciferol (vitamin D3) 25 25 mcg PO DAILY 07/30/22 11/04/24 mcg (1,000 unit) capsule diphenhydramine HCl 25 mg tablet 25 mg PO TID PRN Allergic Symptoms 07/30/22 11/04/24 (Benadryl Allergy) acetaminophen 300 mg-codeine 30 mg 1 tab PO QID PRN Pain 11/04/24 11/04/24 tablet gabapentin 600 mg tablet 600 mg PO BID 11/04/24 11/04/24 Previous Rx's ?Medication ?Instructions ?Recorded Power step arch support #2 ea 05/04/21 nitroglycerin 0.4 mg sublingual 0.4 mg sublingual Q5M PRN Chest 05/22/22 tablet Pain #25 tabs potassium chloride 20 mEq 20 meq PO BID #180 tabs 05/22/22 tablet,extended release(part/cryst) (Klor-Con M) ascorbic acid (vitamin C) 500 mg 500 mg PO DAILY #90 caps 09/25/22 capsule apixaban 2.5 mg tablet (Eliquis) 2.5 mg PO BID 30 days #60 tabs 04/29/23 [place] Brace #1 ea 05/13/23 hinged knee brace #1 ea 09/10/23 celecoxib 100 mg capsule (Celebrex) 100 mg PO BID #60 caps 10/31/23 Supinator to right #1 ea 03/18/24 fluticasone fur. 100 mcg-umeclid 1 inh inhalation DAILY #60 ea 05/07/24 62.5 mcg-vilant 25 mcg inhalat.powder (Trelegy Ellipta) Allergies Allergy/AdvReac Type Severity Reaction Status Date / Time No Known Allergies Allergy Verified 10/14/24 13:49 Review of Systems Const: Denies: fever(s), chills, body aches or change in appetite ENMT: Denies: throat pain or dental pain Card: Denies: chest pain Resp: Denies: dyspnea GI: Denies: abdominal pain, nausea, vomiting or diarrhea Musc: Denies: neck pain or back pain Skin/Breast: Denies: rash Neuro: Reports: headache(s) PFSH ED PFSH: Medical History Osteopenia Anemia Greater trochanteric bursitis of left hip Osteoarthritis of left hip History of nonmelanoma skin cancer 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 inhibitors Presence of IVC filter DVT (deep venous thrombosis) Bradycardia Patient states her heart rate runs in 40s to 50s at home Chronic kidney disease Hematoma Small complex fluid lesion adjacent to superficial thrombophlebitis in the left calf, 26 x 10 x 24 mm, Superficial thrombophlebitis Pulmonary emboli Obstructive sleep apnea Chronic respiratory failure with hypoxia and hypercapnia Varicose veins of left leg with edema COPD (chronic obstructive pulmonary disease) Tachycardia HTN (hypertension) Hyperlipidemia GERD (gastroesophageal reflux disease) CHF (congestive heart failure) Acute depression IBS (irritable bowel syndrome) Alzheimer disease Seasonal allergic rhinitis Rheumatoid arthritis B12 deficiency Muscle spasm Breast cancer Surgical History History of total left knee replacement S/P ORIF (open reduction internal fixation) fracture (04/25/23) ORIF of left periprosthetic distal femur fracture S/P IVC filter History of back surgery H/O neck surgery H/O shoulder surgery H/O wrist surgery History of ear surgery History of lumpectomy of right breast (02/26/19) Right breast lumpectomy with axillary sentinel lymph node biopsy History of hysterectomy History of cholecystectomy Family History Father CAD (coronary artery disease) Cancer Mother CAD (coronary artery disease) Brother CAD (coronary artery disease) Sister Cancer Other Diabetes Hyperlipidemia Hypertension Lung disease Psychiatric illness Social History Smoking and tobacco/nicotine status: former use of tobacco/nicotine Quit status (tobacco/nicotine): has quit using Year quit tobacco: 1995 - PD x 40 Years Alcohol intake: never Substance/Drug Use: never Lives independently: Yes Household members: spouse Marital status: Current occupational status: retired Do you think of yourself as: Straight/Heterosexual Current gender identity: Female Physical Exam Const: COMMON NORMALS: no acute distress, patient oriented x3 and healthy appearing HENMT: COMMON NORMALS: normocephalic HEAD & SCALP: normocephalic OTHER: 2cm laceration Eye: COMMON NORMALS: Equal, round and reactive pupils present and EOMs intact bilaterally PUPIL: Yes Equal, round and reactive pupils present Neck/C-Spine: COMMON NORMALS: full ROM and supple Chest: COMMONS NORMALS: normal inspection of the chest Resp: COMMON NORMALS: normal respiratory effort, No retractions, No use of accessory muscles and clear to auscultation bilaterally AUSCULTATION: clear to auscultation bilaterally Cardio: COMMON NORMALS: regular rate, regular rhythm and No murmurs present (Cardio) RATE: regular rate RHYTHM: regular rhythm GI: COMMON NORMALS: Normal to inspection, nondistended, normoactive bowel sounds present, Soft to palpation, non-tender and no masses PALPATION: Yes Soft to palpation Extremity: COMMON NORMALS: normal to inspection and full ROM Neuro: COMMON NORMALS: patient oriented x3, moves all extremities and no focal motor deficits Psych: COMMON NORMALS: mental status grossly normal, Normal thought process present and cooperative THOUGHT PROCESS: Normal thought process present Skin: COMMON NORMALS: no rashes or lesions noted and no wounds GENERAL SKIN EXAM: no rashes or lesions noted Procedures Laceration Laceration 1: Site: face Side (If applicable): left (eyebrow) Size (cm): 2 Description: linear Depth: simple, single layer Local Anesthetic: lidocaine 1% Amount of anesthesia used (mL): 6 Pre-repair: wound explored, irrigated extensively and deep structures intact Skin layer closed with: nylon Size (cm): 5-0 Number of sutures: 2 Technique: simple, interrupted Course Vital Signs: Vital signs: Vital Signs Temperature 98.3 F 11/04/24 13:28 Pulse Rate 63 11/04/24 14:55 Respiratory Rate 16 11/04/24 13:28 Blood Pressure 148/63 11/04/24 14:55 Pulse Oximetry 97 11/04/24 14:55 Oxygen Delivery Me thod Room Air 11/04/24 14:55 Oxygen Flow Rate 2 11/04/24 13:28 MDM - Fall Medical Decision Making Patient presents here laceration to the left forehead after a fall imaging here is all normal suture removal in 7 days return if worsening. Medical Records I reviewed the patient's medical records. Lab Data Radiology Impressions Cervical Spine CT 11/04/24 13:40 IMPRESSION: No acute cervical spine fracture. Prior anterior cervical fusion from C3-C7. No complications concerning the cervical fusion. Head CT 11/04/24 13:40 IMPRESSION: 1. No acute intracranial hemorrhage or edema. 2. Mild cerebral and cerebellar atrophy with moderate small vessel disease. 3. Soft tissue contusion centered over the LEFT facial bones. Facial bone CT to follow. Face CT 11/04/24 13:48 IMPRESSION: 1. No acute facial bone fractures. 2. Soft tissue contusion centered over the LEFT orbit and zygomatic arch. All radiology interpretation(s) finalized by discharge EKG Data EKG 1: I personally reviewed and interpreted this EKG as follows: EKG interpretation date: 11/04/24 EKG interpretation time: 14:31 Interpretation: nsr hr [address] elevation qrs 101 qtc 445 Discharge Plan Discharge Patient Disposition: Home Clinical Impression: Laceration of head, Fall Condition: Stable Prescriptions: No Action (DME) Power step arch support See Rx Instructions .Route .MEDSUPPLY Qty: 2 0RF Rx Instructions: As directed ferrous sulfate 324 mg (65 mg iron) tablet,delayed release (DR/EC) 324 mg PO DAILY mecobalamin (vitamin B12) 1,000 mcg tablet,chewable 1,000 mcg PO DAILY magnesium oxide 500 mg capsule 500 mg PO DAILY fluticasone propionate 50 mcg/actuation spray,suspension 1 spray intranasal BID Rx Instructions: administer into each nostril (DME) [place] Brace See Rx Instructions .Route .MEDSUPPLY Qty: 1 0RF Rx Instructions: As directed ([facility]) Supinator to right See Rx Instructions .Route .MEDSUPPLY Qty: 1 0RF Rx Instructions: As directed bumetanide 1 mg tablet 1 mg PO DAILY cholecalciferol (vitamin D3) 25 mcg (1,000 unit) capsule 25 mcg PO DAILY diphenhydramine HCl [Benadryl Allergy] 25 mg tablet 25 mg PO TID PRN (Reason: Allergic Symptoms) pantoprazole 40 mg tablet,delayed release (DR/EC) 40 tab PO DAILY citalopram 20 mg tablet 1 tab PO DAILY donepezil 10 mg tablet 1 tab PO DAILY rosuvastatin 10 mg tablet 1 tab PO QPM nitroglycerin 0.4 mg tablet, sublingual 0.4 mg sublingual Q5M PRN (Reason: Chest Pain) Qty: 25 3RF Rx Instructions: do not exceed 3 doses per episode potassium chloride [Klor-Con M20] 20 mEq tablet,ER particles/crystals 20 meq PO BID Qty: 180 3RF ascorbic acid (vitamin C) 500 mg capsule 500 mg PO DAILY Qty: 90 0RF (DME) hinged knee brace See Rx Instructions .Route .MEDSUPPLY Qty: 1 0RF Rx Instructions: As directed celecoxib [Celebrex] 100 mg capsule 100 mg PO BID Qty: 60 2RF Trelegy Ellipta 100-62.5-25 mcg blister with device 1 inh inhalation DAILY Qty: 60 6RF Eliquis 2.5 mg tablet 2.5 mg PO BID 30 Days Qty: 60 0RF gabapentin 600 mg tablet 600 mg PO BID acetaminophen-codeine 300-30 mg tablet 1 tab PO QID PRN (Reason: Pain) Discharge Orders: Discharge ED (Routine); Ordered 11/04/24 Ordered By: Sean Salinas Referrals: Zhang Gamboa MD [Primary Care Provider] - 4-7 days Discharge Diet: Advance as tolerated Discharge Activity: Resume usual activity Patient Instructions: Care For Your Stitches (ED), Head Laceration (ED) Activity Restrictions/Additional Instructions: suture removal in 7 days Print Language: Ecuadorean Coding Level of Care Code ED Engineer First Assistant for Gus Monaco
--- NOTE | 2024-11-04 13:40 | CT_ITS ---
WS: [id number] CT HEAD NONCONTRAST HISTORY: fall TECHNIQUE: Contiguous axial imaging performed through the brain. Bone and soft tissue windows. Sagittal and coronal reformats reviewed. All CT scans at [facility] use at least one of these dose optimization techniques: automated exposure control; mA and/or kV adjustment per patient size (includes targeted exams where dose is matched to clinical indication); or iterative reconstruction. DLP: 1856.52 mGy.cm COMPARISON: 04/23/2023 No acute intracranial hemorrhage, midline shift or mass effect. Mild symmetric atrophy and moderate small vessel ischemic disease. Mild progression since the prior study. Mild bilateral cerebellar atrophy. Ventricles: Normal size with no hydrocephalus. No inferior displacement of the cerebellar tonsils. Paranasal sinuses: As visualized are clear. Mastoid air cells: Well pneumatized. Calvarium and scalp: No skull fracture. Moderate soft tissue hematoma centered over the LEFT facial bones and zygomatic arch and orbit. CT/CT head wo con* [id number] IMPRESSION: 1. No acute intracranial hemorrhage or edema. 2. Mild cerebral and cerebellar atrophy with moderate small vessel disease. 3. Soft tissue contusion centered over the LEFT facial bones. Facial bone CT t o follow.
--- NOTE | 2024-11-04 13:40 | CT_ITS ---
WS: [id number] CT CERVICAL SPINE HISTORY: fall TECHNIQUE: Contiguous 2.0 mm axial imaging performed through the entire cervical spine. Sagittal and coronal reformats also performed. All CT scans at [facility] use at least one of these dose optimization techniques: automated exposure control; mA and/or kV adjustment per patient size (includes targeted exams where dose is matched to clinical indication); or iterative reconstruction. DLP: 1856.52 mGy.cm COMPARISON: None available. Severe osteopenia. Prior anterior cervical fusion from C3-C7. Disc spacers at C3 3 4, C4-5 and C5-6. No acute fracture. Facet joints are all narrowed. Craniocervical junction is normal. Lateral masses of C1 and C2 are aligned. The odontoid is intact. No acute cervical spine fracture. Atherosclerotic plaque in the intracranial carotid arteries. Micronodule posterior LEFT upper lobe. CT/CT cervical spin wo con* [id number] IMPRESSION: No acute cervical spine fracture. Prior anterior cervical fusion from C3-C7. No complications concerning the cerv ical fusion.
--- NOTE | 2024-11-04 13:48 | CT_ITS ---
WS: [id number] CT FACIAL BONES HISTORY: fall TECHNIQUE: Images obtained from the supraorbital location through the mandible. Soft tissue and bone windows are reviewed. Coronal and sagittal reformats have also been submitted. DLP: 1856.[address] scans at [facility] use at least one of these dose optimization techniques: automated exposure control; mA and/or kV adjustment per patient size (includes targeted exams where dose is matched to clinical indication); or iterative reconstruction. COMPARISON: None available. No facial bone fractures are identified. Nasal bones are intact. Normal zygomatic arches. Floor and roof of the orbit is intact. Moderate soft tissue hematoma centered over the LEFT orbit and zygomatic arch. There is no retro- orbital hematoma. Mandibular condyles are normal. There is severe degenerative changes in the upper cervical spine. Fusion hardware noted at C3. Craniocervical junction is normally aligned. Bilateral foraminal stenosis at C2-3 and C3-4. CT/CT facial bones wo con* [id number] IMPRESSION: 1. No acute facial bone fractures. 2. Soft tissue contusion centered over the LEFT orbit and zygomatic arch.
[2024-11-04] MEDS: lidocaine 1% 10 ML INJ SUBCUT (14:23)
--- NOTE | 2024-11-04 14:29 | XR_ITS ---
WS: [id number] XR chest 1V portable [id number] REASON FOR EXAM: fall FINDINGS: Mild cardiomegaly. Central pulmonary vein congestion. Chronic reticular interstitial opacities in the lower lung link. There are subtle peripheral linear horizontal opacities contiguous with the pleura. These findings could indicate early congestive failure. Multiple small lucencies in the upper lung link compatible with central lobar emphysema. No findings for pleural effusion. Moderate osteoarthritis in the acromioclavicular joints and glenohumeral joint on the right. Significant degenerative spondylosis in the mid and lower thoracic spine. No rib fracture identified. XR/XR chest 1V portable [id number] IMPRESSION: Question early congestive heart failure.
--- NOTE | 2024-11-04 14:29 | ECG_ITS ---
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 Measurements Intervals [place] Rate: 63 P: -18 MO: 161 QRS: -17 QRSD: 101 T: -20 QT: 437 QTc: 450 Interpretive Statements SINUS RHYTHM SEPTAL MYOCARDIAL INFARCTION , OF INDETERMINATE AGE [40+ ms Q WAVE IN V1/V2] INFERIOR MYOCARDIAL INFARCTION , OF INDETERMINATE AGE [40+ ms Q WAVE AND/OR ST/T ABNORMALITY IN II/aVF] Compared to ECG 04/23/2023 20:31:14 Myocardial infarct finding now present Electronically Signed On 11-07-2024 18:08:02 DIRECTOR PUBLIC by Tim Ortega M.D. [email or web address]
[2024-11-04 14:55] VITALS: BP 148/63; PULSE 63; O2SAT 97
[2024-11-04 15:17] VITALS: BP 156/55; PULSE 67; O2SAT 94
== END 2024-11-04 15:29 | disposition home or self-care (01) ==
PROVIDERS: Emergency Provider Emergency Medicine; PCP Family Medicine
DX: S01.81XA Laceration without foreign body of other part of head, initial encounter (principal); Z79.01 Long term (current) use of anticoagulants; Z87.891 Personal history of nicotine dependence; Z85.3 Personal history of malignant neoplasm of breast; E78.5 Hyperlipidemia, unspecified; J44.9 Chronic obstructive pulmonary disease, unspecified; I13.0 Hypertensive heart and chronic kidney disease with heart failure and stage 1 through stage 4 chronic kidney disease, or unspecified chronic kidney disease; N18.9 Chronic kidney disease, unspecified; I50.9 Heart failure, unspecified; W01.0XXA Fall on same level from slipping, tripping and stumbling without subsequent striking against object, initial encounter
CPT/HCPCS: 12011; 70450; 70486; 71045; 72125; 93005; 99284

== ENCOUNTER → 2024-11-11 12:28 | Outpatient (BNVA) | payer MEDICARE, SELFPAY | PROVIDERS: PCP Family Medicine; Visit Provider Specialist | DX: M97 Periprosthetic fracture around internal prosthetic joint (principal); S72.452D Displaced supracondylar fracture without intracondylar extension of lower end of left femur, subsequent encounter for closed fracture with routine healing; S42.254D Nondisplaced fracture of greater tuberosity of right humerus, subsequent encounter for fracture with routine healing; X58.XXXS Exposure to other specified factors, sequela; X58.XXXD Exposure to other specified factors, subsequent encounter | CPT/HCPCS: 99215 ==

== ENCOUNTER 2024-11-25 08:30 | Oncology outpatient (recurring) (ONCR) | payer MEDICARE, SELFPAY ==
[2024-11-04] MEDS: iron sucrose 300 MG in sodium chloride 0.9% (100 ml) 100 ML 200 MG IV (08:26)
[2024-11-04 09:09] VITALS: BP 153/59; PULSE 58; TEMP 36.9
== END 2024-11-30 23:59 | disposition home or self-care (01) ==
PROVIDERS: PCP Family Medicine; Visit Provider Internal Medicine
DX: D50.9 Iron deficiency anemia, unspecified (principal); Z85.3 Personal history of malignant neoplasm of breast; Z87.891 Personal history of nicotine dependence; Z79.899 Other long term (current) drug therapy; Z92.3 Personal history of irradiation; Z92.23 Personal history of estrogen therapy
CPT/HCPCS: 96365; J1756

== ENCOUNTER 2024-12-30 08:08 | Oncology outpatient (recurring) (ONCR) | payer MEDICARE, SELFPAY ==
[2024-12-02 08:57] VITALS: BP 135/58; PULSE 57; RESP 18; TEMP 36.4; O2SAT 95
[2024-12-02] MEDS: iron sucrose 300 MG in sodium chloride 0.9% (100 ml) 100 ML 200 MG IV (09:19)
[2024-12-02 10:07] VITALS: BP 118/55; PULSE 68; O2SAT 94
[2024-12-02 13:53] VITALS: BP 144/79; PULSE 78; RESP 16; TEMP 36.5; O2SAT 95
[2024-12-09] MEDS: iron sucrose 300 MG in sodium chloride 0.9% (100 ml) 100 ML 200 MG IV (09:06)
[2024-12-09 09:45] VITALS: BP 135/75; PULSE 66; RESP 16; TEMP 36.9; O2SAT 84
[2024-12-16 09:00] VITALS: BP 163/58; PULSE 67; RESP 20; TEMP 36.7; O2SAT 94
[2024-12-16] MEDS: iron sucrose 300 MG in sodium chloride 0.9% (100 ml) 100 ML 200 MG IV (09:18)
[2024-12-23 09:13] VITALS: BP 138/73; PULSE 68; RESP 18; TEMP 36.7; O2SAT 99
[2024-12-23] MEDS: iron sucrose 300 MG in sodium chloride 0.9% (100 ml) 100 ML 200 MG IV (09:25)
== END 2024-12-30 23:59 | disposition home or self-care (01) ==
PROVIDERS: PCP Family Medicine; Visit Provider Internal Medicine
DX: Z53.9 Procedure and treatment not carried out, unspecified reason (principal)
CPT/HCPCS: 96365; 96375; 96413; J1756

== ENCOUNTER → 2025-01-04 12:47 | Outpatient (BNVA) | payer MEDICARE, SELFPAY | PROVIDERS: PCP Family Medicine; Visit Provider Family Medicine | DX: Z01.818 Encounter for other preprocedural examination (principal) | CPT/HCPCS: 80053; 85025 ==

== ENCOUNTER 2025-01-07 12:42 | Oncology outpatient (recurring) (ONCR) | payer MEDICARE, SELFPAY ==
--- NOTE | 2025-01-07 13:30 | USCV_ITS ---
Maddison Jenkins Age: 79 Gender: F : 1945 Exam Date: 01/07/2025 13:04 Ordering Phys: Desi Monet MD Technologist: [employer] Exam Location: [facility] [place] Indication: pre op Risk Factors: Previous Vascular Surgery: Right Brachial BP: / Left Brachial BP: / Right Left Velocity (cm/s) Spectral Plaque Velocity (cm/s) Spectral Plaque Syst/Diast Broadening Syst/Diast Broadening 88.10/ 18.50 Prox CCA 82.90 / 21.80 94.90/ 22.60 Mid CCA 94.00 / 25.30 87.90/ 24.10 Distal CCA 107.90/ 24.90 73.80/ 24.30 Prox ICA 125.50/ 40.80 113.70/44.30 Mid ICA 118.00/ 40.10 127.10/37.00 Distal ICA 164.30/ 47.80 76.70 ECA 119.60 0.80 ICA/CCA 1.20 Antegrade Vertebral Antegrade 63.90/ 19.30 cm/s 65.10/ 21.10 cm/s Tri Subclavian Tri 81.00 88.60 CONCLUSIONS Right ICA stenosis <50%. Moderate atheromatous plaque right carotid bulb/ICA. Left ICA stenosis 50-69%. Moderate atheromatous plaque left carotid bulb/ICA. Normal antegrade Doppler flow noted in the right vertebral artery. Normal antegrade Doppler flow noted in the left vertebral artery. Esteban Goldsmith MD (Electronically Signed) Final Date: 07 Jan 2025 15:40 S
== END 2025-01-30 23:59 | disposition home or self-care (01) ==
LOC: RAD 12:44 → ONCMED 01-11 10:31
PROVIDERS: PCP Family Medicine; Visit Provider Family Medicine
DX: D50.9 Iron deficiency anemia, unspecified (principal); Z79.899 Other long term (current) drug therapy; Z53.9 Procedure and treatment not carried out, unspecified reason; R09.89 Other specified symptoms and signs involving the circulatory and respiratory systems
CPT/HCPCS: 93880

== ENCOUNTER 2025-01-12 14:05 | Observation (INO) | payer MEDICARE, SELFPAY ==
[2025-01-12] VITALS (17 sets, daily range): BP systolic 96–155; BP diastolic 45–66; PULSE 59–86; RESP 16–20; TEMP 36.2–37.1; O2SAT 90–100; BMI 25.6
[2025-01-12] MEDS: acetaminophen 1,000 MG/100 ML PIGGYBACK 400 MG IV (10:26)
[2025-01-12] MEDS: albuterol 2.5 mg/3 mL Neb INHALATION (10:26)
[2025-01-12] MEDS: sodium chloride 0.9% 1,000 ML 30 ML IV (10:26)
[2025-01-12] MEDS: CELEcoxib 200 mg Capsule 400 MG PO (10:27)
[2025-01-12] MEDS: gabapentin 300 mg Capsule PO (10:27)
--- NOTE | 2025-01-12 11:04 | ANES.PREANE2 ---
Pre-Anesthetic Assessment Height/Weight: Height 1.57 m Weight 63.503 kg Temp Pulse Resp BP Pulse Ox O2 Del Method O2 Flow Rate 98 F 68 20 H 155/65 91 Nasal Cannula 2 01/12/25 10:01 01/12/25 10:01 01/12/25 10:01 01/12/25 10:01 01/12/25 10:01 01/12/25 10:08 01/12/25 10:08 Operation Date: 01/12/25 11:45 Proposed Procedures p LEFT Hardware Removal of Distal Femur(Left) - Blessing Joyner MD Familial anesthetic complications: None Was Beta Marissa taken within 24 hours: N/A Was Clonidine taken within 24 hours: N/A Last intake: Intake Last Liquid Date 01/11/25 Last Liquid Time 20:30 Last Solid Date 01/11/25 Last Solid Time 18:00 Social No alcohol and No tobacco Exam alert, oriented x 3, clear to auscultation bilaterally and regular rate & rhythm Airway Mallampati: Class III Dentition: full Pulmonary Chronic Obstructive Pulmonary Disease CV/HEM Anemia, Stable Angina, Coronary Artery Disease, Congestive Heart Failure, Deep Vein Thrombosis and Hypertension PE Anesthetic Plan ASA status: 4 Anesthesia: General Risk of > 500 ml blood loss (7ml/kg in children): No Medications/Allergies Home Medications ?Medication ?Instructions ?Recorded ?Confirmed ?Last Taken ?Type ferrous sulfate 324 mg (65 mg 324 mg PO DAILY 09/09/19 01/11/25 01/11/25 History iron) tablet,delayed release magnesium oxide 500 mg capsule 500 mg PO DAILY 12/10/19 01/11/25 01/11/25 History mecobalamin (vitamin B12) 1,000 1,000 mcg PO DAILY 12/10/19 01/11/25 01/11/25 History mcg chewable tablet Power step arch support #2 ea 05/04/21 11/11/24 09/18/21 Rx fluticasone propionate 50 1 spray intranasal BID 01/26/22 01/11/25 11/04/24 History mcg/actuation nasal spray,suspension nitroglycerin 0.4 mg sublingual 0.4 mg sublingual Q5M PRN Chest 05/22/22 01/11/25 Unknown Rx tablet Pain #25 tabs potassium chloride 20 mEq 20 meq PO BID #180 tabs 09/01/11/25 01/11/25 Rx tablet,extended release(part/cryst) (Klor-Con M) donepezil 10 mg tablet 1 tab PO DAILY 06/19/22 01/11/25 01/11/25 History pantoprazole 40 mg tablet,delayed 40 tab PO DAILY 06/19/22 01/11/25 01/11/25 History release rosuvastatin 10 mg tablet 1 tab PO QPM 06/19/22 01/11/25 01/10/25 History bumetanide 1 mg tablet 1 mg PO DAILY 07/30/22 01/11/25 01/11/25 History cholecalciferol (vitamin D3) 25 25 mcg PO DAILY 07/30/22 01/11/25 01/11/25 History mcg (1,000 unit) capsule diphenhydramine HCl 25 mg tablet 25 mg PO TID PRN Allergic Symptoms 07/30/22 01/11/25 04/23/23 History (Benadryl Allergy) ascorbic acid (vitamin C) 500 mg 500 mg PO DAILY #90 caps 09/25/22 01/11/25 01/11/25 Rx capsule apixaban 2.5 mg tablet (Eliquis) 2.5 mg PO BID 30 days #60 tabs 04/29/23 01/11/25 01/07/25 Rx [place] Brace #1 ea 05/13/23 11/11/24 Unknown Rx hinged knee brace #1 ea 09/10/23 11/11/24 Unknown Rx Supinator to right #1 ea 03/18/24 11/11/24 Unknown Rx fluticasone fur. 100 mcg-umeclid 1 inh inhalation DAILY #60 ea 05/07/24 01/11/25 11/04/24 Rx 62.5 mcg-vilant 25 mcg inhalat.powder (Trelegy Ellipta) acetaminophen 300 mg-codeine 30 mg 1 tab PO QID PRN Pain 11/04/24 01/11/25 Unknown History tablet gabapentin 600 mg tablet 600 mg PO BID 11/04/24 01/11/25 01/11/25 History Allergies Allergy/AdvReac Type Severity Reaction Status Date / Time No Known Allergies Allergy Verified 01/11/25 09:53 Current Medications Generic Name Dose Route Start Last Admin Trade Name Freq PRN Reason Stop Dose Admin Sodium Chloride 1,000 mls @ 30 mls/hr 01/12/25 10:00 01/12/25 10:26 Sodium Chloride 0.9% IV 01/13/25 09:59 30 mls/hr .Q24H SUJATA Administration PFSH Anesthesia Medical History Osteopenia Anemia Greater trochanteric bursitis of left hip Osteoarthritis of left hip History of nonmelanoma skin cancer shelter (current) use of aromatase inhibitors Presence of IVC filter DVT (deep venous thrombosis) Bradycardia Patient states her heart rate runs in 40s to 50s at home Chronic kidney disease Hematoma Small complex fluid lesion adjacent to superficial thrombophlebitis in the left calf, 26 x 10 x 24 mm, Superficial thrombophlebitis Pulmonary emboli Obstructive sleep apnea Chronic respiratory failure with hypoxia and hypercapnia Varicose veins of left leg with edema COPD (chronic obstructive pulmonary disease) Tachycardia HTN (hypertension) Hyperlipidemia GERD (gastroesophageal reflux disease) CHF (congestive heart failure) Acute depression IBS (irritable bowel syndrome) Alzheimer disease Seasonal allergic rhinitis Rheumatoid arthritis B12 deficiency Muscle spasm Breast cancer Surgical History History of total left knee replacement S/P ORIF (open reduction internal fixation) fracture (04/25/23) ORIF of left periprosthetic distal femur fracture S/P IVC filter History of back surgery H/O neck surgery H/O shoulder surgery H/O wrist surgery History of ear surgery History of lumpectomy of right breast (02/26/19) Right breast lumpectomy with axillary sentinel lymph node biopsy History of hysterectomy History of cholecystectomy Family History Father CAD (coronary artery disease) Cancer Mother CAD (coronary artery disease) Brother CAD (coronary artery disease) Sister Cancer Other Diabetes Hyperlipidemia Hypertension Lung disease Psychiatric illness Social History Smoking and tobacco/nicotine status: never used tobacco/nicotine Quit status (tobacco/nicotine): has quit using Year quit tobacco: 1995 - 1PPD x 40 Years Alcohol intake: never Substance/Drug Use: never Lives independently: Yes Household members: spouse Marital status: Current occupational status: retired Do you think of yourself as: Straight/Heterosexual Current gender identity: Female Data Anesthesia Cardiac Studies: Echocardiogram 12/03/23 Echocardiogram Limited Views 06/04/20 Echocardiogram Ultrasound 08/09/20 Sestamibi Stress Test (Cardiology) 03/21/20
--- NOTE | 2025-01-12 11:13 | P.HPUD_ITS ---
Surgery/Procedure H&P Update DATE OF PROCEDURE: January 12, 2025 DATE H&P PERFORMED: 01/04/25 H&P UPDATE INFORMATION: I have reviewed H&P completed within last 30 days, I have examined patient prior to procedure, No changes to prior documentation and H&P is in [facility] EMR on date indicated PLANNED PROCEDURE: Operation Date: 01/12/25 11:45 Proposed Procedures p LEFT Hardware Removal of Distal Femur(Left) - Blessing Joyner MD Related Problem List Diagnoses (1) Supracondylar fracture of left femur: Qualifiers: Encounter type: sequela Fracture type: closed Qualified Code(s): S72.452S - Displaced supracondylar fracture without intracondylar extension of lower end of left femur, sequela (2) Periprosthetic fracture around internal prosthetic left knee joint: Qualifiers: Encounter type: sequela Qualified Code(s): M97.12XS - Periprosthetic fracture around internal prosthetic left knee joint, sequela
[2025-01-12] MEDS: ceFAZolin 2,000 mg SDV 2000 MG IVP ×2 (11:34→21:04)
[2025-01-12] MEDS: ceFAZolin 1,000 mg SDV 1000 MG IRRIGATION (12:17)
[2025-01-12] MEDS: BUPivacaine liposome 13.3 mg/mL SDV 20 mL 266 MG XX (12:45)
[2025-01-12] MEDS: BUPivacaine 0.5% INJ 10 mL 20 ML XX (12:45)
[2025-01-12] MEDS: vancomycin 1,000 MG SDV 1000 MG XX (12:59)
--- NOTE | 2025-01-12 13:38 | P.OP_ITS ---
Operative Report Date of procedure: January 12, 2025 Pre-op diagnosis: Retained painful hardware following left periprosthetic distal femur fracture with supracondylar and intercondylar components as well as distal femoral shaft fracture Post-op diagnosis: Left femur retained painful hardware following left periprosthetic distal femur fracture with supracondylar and intercondylar components as well as distal femoral shaft fracture Post-op findings: Healed fracture with bone over large portions of the plate requiring removal Procedure done: Left femoral shaft and distal femur hardware removal with removal of bone from over the plate. 12 screws and 1 extra long femoral plate. Implants: Removal of 12 screws and 1 extra long femoral plate Specimens removed/disposition: Plate and screws Pathology: Cultures obtained at end of case Surgeon: Blessing Joyner MD [place] Wire Weaver: Eulalia Wang, nurse practitioner, who services were required for positioning, retraction, plate removal, and closure. Anesthesia: General (Intubated, ASA 4) Estimated blood loss (mL): 520 IV fluids (mL): 700 Urine output (mL): 0 (No Teresa) Complications: None Findings: Overgrowth of bone over the distal femoral supracondylar femur plate. This required bone removal prior to the ability to remove the plate. 12 screws and the plate were removed uneventfully. Condition: stable Disposition: PACU (Then to floor for pain management postoperatively) Brief History: This 79-year-old woman presents today for removal of hardware from her left distal femur which is painful for her. She had a periprosthetic distal femur fracture with intercondylar supracondylar and distal femoral shaft components. Her date of surgery for ORIF was April 25, 2023. She primarily had pain over the lateral aspect of her knee which was directly over the hardware. She denied any pain further up in the femur. After discussion, and bone scan which demonstrated no significant findings, plans were made for removal of her hardware. She did have some diffuse increased uptake felt to be related to the hardware, but no obvious nonunion or other issue of concern. Secondary to pain directly over the lateral femur in the area of the plate, plans were made for plate removal. Risks and complications were discussed. Consents were signed and questions were answered. Procedure: Patient was brought to the operating theater and after undergoing adequate general anesthesia, intubated, ASA 4, the left lower extremity was prepped and draped in usual fashion utilizing DuraPrep, and the leg was draped free. Sterile tourniquet was available, but it was not utilized. Surgical pause was performed. At the time of the surgical pause we confirmed the site and site of surgery as well as appropriate equipment and timely administration of preoperative antibiotic. Patient's identity was verbally confirmed as well. Following surgical pause, fluoroscopy was utilized to identify the extent of the plate. The 10 hole lateral Ted plate was visualized with fluoroscopy. The patient's prior incision was entered uneventfully. Dissection continued skin and soft tissue using a scalpel hemostasis was obtained using electrocautery. Iliotibial band was incised. There was scar tissue secondary to the previous surgical procedure. We are able to dissect down onto the hardware and elevate soft tissue from it. Appropriate retraction was utilized. Initially, attention was directed proximally. There was bony overgrowth on the plate which required removal plate prior to removal of the screws. Additional removal of bone was required to be able to remove the plate once all screws have been removed. After proximal screws were removed, attention was directed distally. Screws were removed from the distal aspect of the plate. Confirmation was made that all screws have been removed in AP and lateral planes by fluoroscopy. Having removed all screws, the plate had to be chiseled off of the bone with multiple areas covered with bone. This was accomplished without damaging the remaining cortex of the femur. The plate was removed. The wound was copiously irrigated. Cultures were obtained during the process. Palpation over the site of the plate was accomplished and all areas that were prominent were removed with a rongeur and smoothed. After irrigation and suctioning dry, closure was accomplished with 0 Vicryl in the fascial tissues. 0 Vicryl was used to further approximate the subcutaneous tissues. This was followed by 2-0 Monocryl STRATAFIX. Once this was in place, the skin was closed with a running 3 oh STRATAFIX uneventfully. The wound closed nicely. Dressing was then placed consisting of Prineo, and OpSite. Patient was transferred to the recovery room in a satisfactory condition. She will spend the night on the floor under observation status for pain management. Other than cultures, no specimens were obtained. There were no complications. Related Problem List Diagnoses (1) Supracondylar fracture of left femur: (2) Periprosthetic fracture around internal prosthetic left knee joint:
--- NOTE | 2025-01-12 13:56 | XR_ITS ---
WS: [id number] Exam: XR femur LT 1V [id number] Date/Time of Exam: 01/12/2025 1:56 PM Reason For Exam: OR PIC, HARDWARE REMOVAL AP C arm images of the lower LEFT femur are submitted. The images depict removal of the previously noted lateral plate and screws. Partially visualized total knee replacement.
--- NOTE | 2025-01-12 14:35 | ANE.PACU2 ---
Inpatient post-anesthesia follow up: Airway intact: Yes Vital signs: Temperature 98.4 F Pulse Rate 71 Respiratory Rate 18 Blood Pressure 112/47 Pulse Oximetry 94 Oxygen Delivery Me thod Nasal Cannula Oxygen Flow Rate 3 Fraction of Inspir ed Oxygen Hydration adequate: Yes Nausea and vomiting: No Pain level: 1 Mental status: Baseline
[2025-01-12] MEDS: oxyCODONE 5 mg IR Tab/Cap PO ×2 (15:51→21:04)
[2025-01-12] MEDS: ipratropium-albuterol 3 mL Neb INHALATION ×2 (16:51→20:18)
[2025-01-12] MEDS: potassium chloride ER 20 mEq Tablet PO (17:31)
[2025-01-12] MEDS: atorvastatin 40 mg Tablet PO (17:32)
[2025-01-12] MEDS: gabapentin 300 mg Capsule 600 MG PO (17:32)
[2025-01-12] MEDS: apixaban 5 mg Tablet 2.5 MG PO (17:32)
[2025-01-12] MEDS: acetaminophen 500 mg Tablet 1000 MG PO (17:32)
[2025-01-12] MEDS: fluticasone nasal spray 16gm Btl 1 SPRAY INTRANASAL (17:33)
[2025-01-12] MEDS: budesonide 0.5 mg/2 mL Neb INHALATION (20:18)
[2025-01-13] VITALS (8 sets, daily range): BP systolic 103–151; BP diastolic 47–71; PULSE 63–86; RESP 17–18; TEMP 36.6–36.9; O2SAT 93–97
[2025-01-13] MEDS: acetaminophen 500 mg Tablet 1000 MG PO ×3 (01:07→16:50)
[2025-01-13] MEDS: ceFAZolin 2,000 mg SDV 2000 MG IVP ×2 (04:19→11:08)
[2025-01-13] MEDS: budesonide 0.5 mg/2 mL Neb INHALATION (07:54)
[2025-01-13] MEDS: ipratropium-albuterol 3 mL Neb INHALATION ×3 (07:54→15:40)
[2025-01-13] MEDS: pantoprazole DR 40 mg Tablet 20 MG PO (08:39)
[2025-01-13] MEDS: donepezil 5 MG Tablet 10 MG PO (08:39)
[2025-01-13] MEDS: oxyCODONE 5 mg IR Tab/Cap PO (08:39)
[2025-01-13] MEDS: apixaban 5 mg Tablet 2.5 MG PO ×2 (08:39→16:51)
[2025-01-13] MEDS: potassium chloride ER 20 mEq Tablet PO ×2 (08:39→16:51)
[2025-01-13] MEDS: gabapentin 300 mg Capsule 600 MG PO ×2 (08:39→16:51)
[2025-01-13] MEDS: fluticasone nasal spray 16gm Btl 1 SPRAY INTRANASAL ×2 (08:40→16:52)
--- NOTE | 2025-01-13 16:12 | PM.DCS ---
Discharge Providers Date of Admission: 01/12/25 14:05 Date of Discharge: January 13, 2025 Attending Provider at Admission: Blessing Joyner MD Attending Provider at Discharge: Blessing Joyner MD Primary Care Provider: Zhang Gamboa MD Diagnoses at Discharge Discharge Diagnosis (1) Status post hardware removal: Status: Acute Permanent problem details: Date of procedure: January 12, 2025 Pre-op diagnosis: Retained painful hardware following left periprosthetic distal femur fracture with supracondylar and intercondylar components as well as distal femoral shaft fracture Post-op diagnosis: Left femur retained painful hardware following left periprosthetic distal femur fracture with supracondylar and intercondylar components as well as distal femoral shaft fracture Procedure done: Left femoral shaft and distal femur hardware removal with removal of bone from over the plate. 12 screws and 1 extra long femoral plate. Implants: Removal of 12 screws and 1 extra long femoral plate Specimens removed/disposition: Plate and screws Surgeon: Blessing Joyner MD (2) Supracondylar fracture of left femur: Status: Acute Qualifiers: Encounter type: sequela Fracture type: closed Qualified Code(s): S72.452S - Displaced supracondylar fracture without intracondylar extension of lower end of left femur, sequela (3) Periprosthetic fracture around internal prosthetic left knee joint: Status: Chronic Qualifiers: Encounter type: sequela Qualified Code(s): M97.12XS - Periprosthetic fracture around internal prosthetic left knee joint, sequela Reason for Visit Reason for Visit: M97.12XS Brief History: This 79-year-old woman presents today for removal of hardware from her left distal femur which is painful for her. She had a periprosthetic distal femur fracture with intercondylar supracondylar and distal femoral shaft components. Her date of surgery for ORIF was April 25, 2023. She primarily had pain over the lateral aspect of her knee which was directly over the hardware. She denied any pain further up in the femur. After discussion, and bone scan which demonstrated no significant findings, plans were made for removal of her hardware. She did have some diffuse increased uptake felt to be related to the hardware, but no obvious nonunion or other issue of concern. Secondary to pain directly over the lateral femur in the area of the plate, plans were made for plate removal. Risks and complications were discussed. Patient was taken for orthopedic hardware removal on January 12, 2025. This was successful. Patient was admitted for observation and monitoring to the [facility] floor postoperatively. Hospital Course Hospital Course She was admitted via observation and is now postoperative day 1 after left femoral shaft and distal femur hardware removal with removal of bone from over the implant. Patient has been up and walking with therapy services maintaining 50% weightbearing status with a walker. Therapy services states that she has done quite well. Her postoperative pain is well-controlled with medications, ice and elevation. Overnight, the patient was having difficulty voiding and Teresa catheter was placed at the order of orthopedic surgeon on-call. Earlier today, the Teresa catheter was removed for trial to see if the patient could void on her own. After several hours, the patient was able to void on her own. This is the patient's normal voiding pattern, per her report. As she is doing well postoperatively, voiding on her own and pain is well-controlled, we will plan to discharge her. She will continue to be 50% weightbearing with the use of a walker. Her postoperative incision is actively draining, which was expected after significant orthopedic hardware removal. Dressing will be reinforced and compression will be applied. They will follow-up 2 weeks postoperatively. Physical Exam Const: COMMON NORMALS: no acute distress, average body habitus, patient oriented x3, no limitations, alert and well nourished GENERAL APPEARANCE: cooperative; not anxious and not combative ORIENTATION/CONSCIOUSNESS: Yes awake, Yes oriented to person, Yes oriented to place and Yes oriented to time HENMT: COMMON NORMALS: normocephalic and atraumatic HEAD & SCALP: normocephalic and atraumatic Resp: COMMON NORMALS: normal respiratory effort and No use of accessory muscles Extremity: LEFT LOWER EXTREMITY: Yes upper leg (Bulky dressings in place for compression.) Left upper leg: Yes inspection (Small amount of active drainage noted.), Yes palpation (Mild TTP to lateral thigh and incision. ) and Yes neurovascular exam (Sensation intact to light touch. Rapid cap refill.) Neuro: COMMON NORMALS: patient oriented x3 SENSORIUM/ORIENTATION: Yes alert, Yes oriented to person, Yes oriented to place and Yes oriented to time Psych: ATTITUDE: Yes engaged Skin: COMMON NORMALS: no rashes or lesions noted, turgor normal and no jaundice GENERAL SKIN EXAM: no rashes or lesions noted and turgor normal Urinary Catheter Management: Teresa: Cath Placed During This Visit: yes Reason for Continuing Indwelling Catheter: Acute Urinary Retention or Obstruction Urinary Catheter Date of Insertion: 01/13/25 Urinary Catheter Time of Insertion: 01:09 Discharge Data Studies Completed and Pending Completed Studies During Hospitalization Category Date Time Status XR femur LT 1V [id number] Stat Exams 01/12/25 13:56 Completed Pending at discharge Category Date Time Status C-arm Fluoroscopy [id number] Routine Exams 01/12/25 09:45 Taken Anaerobic Culture Routine Lab 01/12/25 13:26 Results Wound Culture and Gram Stain Routine Lab 01/12/25 13:26 Results Vitals Last Vital Signs Temp 97.8 F 01/13/25 11:39 Pulse 86 01/13/25 15:43 Resp 18 01/13/25 15:43 BP 103/60 01/13/25 11:39 Pulse Ox 96 01/13/25 15:43 O2 Del Method Nasal Cannula 01/13/25 15:43 O2 Flow Rate 3 01/13/25 15:43 Discharge Plan Discharge Patient Disposition: Home Health Service Condition: Stable Prescriptions: New hydrocodone-acetaminophen 10-325 mg tablet 1 tab PO Q8H PRN (Reason: pain) Qty: 15 0RF celecoxib [Celebrex] 100 mg capsule 100 mg PO DAILY Qty: 30 0RF acetaminophen 500 mg Tablet 1,000 mg PO Q8H 30 Days Qty: 180 0RF Continued (DME) Power step arch support See Rx Instructions .Route .MEDSUPPLY Qty: 2 0RF Rx Instructions: As directed ferrous sulfate 324 mg (65 mg iron) tablet,delayed release (DR/EC) 324 mg PO DAILY mecobalamin (vitamin B12) 1,000 mcg tablet,chewable 1,000 mcg PO DAILY magnesium oxide 500 mg capsule 500 mg PO DAILY fluticasone propionate 50 mcg/actuation spray,suspension 1 spray intranasal BID Rx Instructions: administer into each nostril (DME) Keagan Brace See Rx Instructions .Route .MEDSUPPLY Qty: 1 0RF Rx Instructions: As directed (DME) Supinator to right See Rx Instructions .Route .MEDSUPPLY Qty: 1 0RF Rx Instructions: As directed bumetanide 1 mg tablet 1 mg PO DAILY cholecalciferol (vitamin D3) 25 mcg (1,000 unit) capsule 25 mcg PO DAILY diphenhydramine HCl [Benadryl Allergy] 25 mg tablet 25 mg PO TID PRN (Reason: Allergic Symptoms) pantoprazole 40 mg tablet,delayed release (DR/EC) 40 tab PO DAILY donepezil 10 mg tablet 1 tab PO DAILY rosuvastatin 10 mg tablet 1 tab PO QPM nitroglycerin 0.4 mg tablet, sublingual 0.4 mg sublingual Q5M PRN (Reason: Chest Pain) Qty: 25 3RF Rx Instructions: do not exceed 3 doses per episode potassium chloride [Klor-Con M20] 20 mEq tablet,ER particles/crystals 20 meq PO BID Qty: 180 3RF ascorbic acid (vitamin C) 500 mg capsule 500 mg PO DAILY Qty: 90 0RF (DME) hinged knee brace See Rx Instructions .Route .MEDSUPPLY Qty: 1 0RF Rx Instructions: As directed Trelegy Ellipta 100-62.5-25 mcg blister with device 1 inh inhalation DAILY Qty: 60 6RF Eliquis 2.5 mg tablet 2.5 mg PO BID 30 Days Qty: 60 0RF gabapentin 600 mg tablet 600 mg PO BID acetaminophen-codeine 300-30 mg tablet 1 tab PO QID PRN (Reason: Pain) Discharge Orders: Discharge Order (Routine); Ordered 01/13/25 Ordered By: Eulalia Wang Referrals: Blessing Joyner MD [Physician, Orthopedics] - 01/27/25 9:15 am Zhang Gamboa MD [Primary Care Provider, [facility]] - 01/22/25 2:15 pm Discharge Diet: Advance as tolerated and Usual diet Discharge Activity: Increase activity as tolerated, Limit activity as instructed and Use walker/crutches as instructed Patient Instructions: Hydrocodone/Acetaminophen (By mouth), Celecoxib (By mouth), Acute Wound Care (DC), Opioid Safety, Post Anesthesia Care Activity Restrictions/Additional Instructions: Ice to the left leg. You may weight-bear as tolerated with a walker, but progressed to this slowly and modify as tolerated. If you have any pain, return to touchdown weightbearing and call for further instruction. Leave your dressing in place until you are seen in the office. You may shower, but if the dressing starts to leak, you may remove it. Do not submerge the leg in water. Discharge Attestations Time Spent in Discharge Care*: greater than 30 min Quality Metrics Clinical Quality Measures [ No reported AMI, CVA or VTE this stay] Coding Level of Care Code Acute Code for Chg Fwd Diagnoses Status post hardware removal Z98.890 Closed supracondylar fracture of left femur, sequela S72.452S Encounter type: sequela Fracture type: closed Periprosthetic fracture around internal prosthetic left knee joint, sequela M97.12XS Encounter type: sequela
[2025-01-13] MEDS: atorvastatin 40 mg Tablet PO (16:51)
== END 2025-01-13 17:45 | disposition home health service (06) ==
LOC: MEDSURG 14:06
PROVIDERS: Admitting Provider Specialist; PCP Family Medicine; Visit Provider Specialist
PROC: (CPT 20680; principal; 2025-01-12 11:25)
DX: T84.84XA Pain due to internal orthopedic prosthetic devices, implants and grafts, initial encounter (principal); S72.452 Displaced supracondylar fracture without intracondylar extension of lower end of left femur; M97 Periprosthetic fracture around internal prosthetic joint; X58.XXXA Exposure to other specified factors, initial encounter; K21.9 Gastro-esophageal reflux disease without esophagitis; Z79.01 Long term (current) use of anticoagulants; D64.9 Anemia, unspecified; M85.80 Other specified disorders of bone density and structure, unspecified site; N18.9 Chronic kidney disease, unspecified; G47.33 Obstructive sleep apnea (adult) (pediatric); I13.0 Hypertensive heart and chronic kidney disease with heart failure and stage 1 through stage 4 chronic kidney disease, or unspecified chronic kidney disease; I50.9 Heart failure, unspecified; J44.9 Chronic obstructive pulmonary disease, unspecified; G30.9 Alzheimer's disease, unspecified; J96.12 Chronic respiratory failure with hypercapnia; J96.11 Chronic respiratory failure with hypoxia; M06.9 Rheumatoid arthritis, unspecified; Z87.891 Personal history of nicotine dependence; I49.5 Sick sinus syndrome; I25.10 Atherosclerotic heart disease of native coronary artery without angina pectoris; Z86.718 Personal history of other venous thrombosis and embolism; Z86.711 Personal history of pulmonary embolism
CPT/HCPCS: 20680; 51702; 73551; 76000; 87070; 87075; 87205; 94640; 97161; 97166; G0378; J0131; J0666; J0690; J1100; J2371; J2405; J2704; J3010; J3370; J3490; J7030; J7613; J7626; J9999; P9045

== ENCOUNTER → 2025-01-27 09:21 | Outpatient (BNVA) | payer MEDICARE, SELFPAY | PROVIDERS: PCP Family Medicine; Visit Provider Specialist | DX: Z98.890 Other specified postprocedural states (principal) | CPT/HCPCS: 73552; 99024 ==

== ENCOUNTER 2025-02-24 11:03 | Oncology outpatient (recurring) (ONCR) | payer MEDICARE, SELFPAY ==
[2025-02-17 10:56] LABS: Basophils # 0.1 10^3/uL (0.0-0.1); Basophils % 1.1 %; Eosinophils # 0.3 10^3/uL (0.0-0.8); Eosinophils % 5.3 %; Lymphocytes # 0.7 10^3/uL (0.8-4.8); Lymphocytes % 11.9 %; Mean Corpuscular HGB Conc 26.9 g/dL (30-55); Mean Corpuscular Hemoglobin 23.5 pg (27-33); Mean Corpuscular Volume 87.3 fl (85-98); Mean Platelet Volume 8.5 fL (7.4-10.4); Monocytes # 0.6 10^3/uL (0.2-0.9); Monocytes % 11.4 %; Neutrophils # 3.93 10^3/uL (1.8-7.7); Neutrophils % 69.9 %; Nucleated Red Blood Cells % 0.4 %; Platelet Count 277 10^3/cmm (157-399); Red Blood Count 3.32 10^6/uL (3.85-5.65); Red Cell Distribution Width 17.2 % (12.1-15.1); Reticulocyte % 3.1 % (0.5-2.0); White Blood Count 5.62 10^3/uL (3.29-11.43)
[2025-02-17 11:09] LABS: Alanine Aminotransferase 6 U/L (0-33); Albumin Level 3.6 g/dL (3.5-5.2); Alkaline Phosphatase 99 U/L (35-105); Anion Gap 12.4 (5-19); Aspartate Amino Transferase 17 U/L (0-32); Blood Urea Nitrogen 26 mg/dL (8-23); Calcium 8.6 mg/dL (8.5-10.5); Carbon Dioxide 33 mmol/L (22-29); Chloride 104 mmol/L (98-107); Ferritin 21 ng/mL (15-150); Globulin 2.2 g/dL (1.3-4.6); Glucose 128 mg/dL (65-115); Iron 18 ug/dL (37-145); Lactate Dehydrogenase 179 U/L (135-214); Osmolality Calculated 306 mOsm/kg (285-295); Percent Saturation 4.9 % (20-50); Potassium 4.4 mmol/L (3.5-5.1); Sodium 145 mmol/L (136-145); Total Bilirubin 0.3 mg/dL (0.15-1.2); Total Iron Binding Capacity 361 mcg/dl; Total Protein 5.8 g/dL (6.6-8.7); Unsaturated Iron Binding 343 ug/dL (112-347)
[2025-02-24 13:00] VITALS: BP 134/68; PULSE 60; RESP 18; TEMP 36.6; O2SAT 96
[2025-02-24] MEDS: iron sucrose 300 MG in sodium chloride 0.9% (100 ml) 100 ML 200 MG IV (13:10)
[2025-02-24 13:40] VITALS: BP 114/68; PULSE 68; RESP 14; TEMP 36.4; O2SAT 98
[2025-02-24 13:48] VITALS: BP 166/64; PULSE 62; RESP 17; TEMP 36.4
== END 2025-03-01 23:59 | disposition home or self-care (01) ==
PROVIDERS: Internal Medicine; PCP Family Medicine; Visit Provider Family Medicine
DX: C50.411 Malignant neoplasm of upper-outer quadrant of right female breast (principal); D50.9 Iron deficiency anemia, unspecified; Z79.899 Other long term (current) drug therapy
CPT/HCPCS: 36415; 80053; 82728; 83010; 83540; 83550; 83615; 85025; 85045; 96365; 99213; J1756

== ENCOUNTER 2025-03-24 08:00 | Oncology outpatient (recurring) (ONCR) | payer MEDICARE, SELFPAY ==
[2025-03-03] MEDS: iron sucrose 300 MG in sodium chloride 0.9% (100 ml) 100 ML 200 MG IV (12:01)
[2025-03-03 12:41] VITALS: BP 127/55; PULSE 63; RESP 18; TEMP 36.1; O2SAT 95
[2025-03-10] MEDS: iron sucrose 300 MG in sodium chloride 0.9% (100 ml) 100 ML 200 MG IV (08:14)
[2025-03-10 08:45] VITALS: BP 117/58; PULSE 59; RESP 20; TEMP 36.7; O2SAT 91
[2025-03-17 08:27] VITALS: BP 130/61; PULSE 56; RESP 18; TEMP 36; O2SAT 96
[2025-03-17] MEDS: iron sucrose 300 MG in sodium chloride 0.9% (100 ml) 100 ML 200 MG IV (08:39)
[2025-03-17 09:11] VITALS: BP 136/54; PULSE 53; RESP 18; TEMP 36.1; O2SAT 95
[2025-03-24] MEDS: iron sucrose 300 MG in sodium chloride 0.9% (100 ml) 100 ML 200 MG IV (08:30)
[2025-03-24 08:47] VITALS: BP 147/68; PULSE 67; RESP 18; TEMP 36.8; O2SAT 95
[2025-03-24 09:10] VITALS: BP 126/78; PULSE 78; RESP 17; TEMP 36.6; O2SAT 98
== END 2025-04-01 23:59 | disposition home or self-care (01) ==
PROVIDERS: PCP Family Medicine; Visit Provider Family Medicine
DX: D50.9 Iron deficiency anemia, unspecified; Z79.899 Other long term (current) drug therapy; Z53.9 Procedure and treatment not carried out, unspecified reason
CPT/HCPCS: 96365; 99214; J1756

== ENCOUNTER 2025-04-06 05:45 | Emergency (ER) | payer MEDICARE, SELFPAY ==
[2025-04-06 05:46] VITALS: BP 142/57; PULSE 69; TEMP 37.1; O2SAT 97; BMI 26.6
--- OUTSIDE RECORDS SUMMARY | 2025-04-06 05:48 | XMS_ITS | Clinical Summary ---
Author Organization [facility] Address [address] [facility] Attn: Epic Prelude ADT JUAN STEWARD [address] Care Team Providers Care Computer Systems Designer Name Role Phone Unavailable Primary Care Provider Unavailabl e Allergies No known active allergies Medications CALCIUM CARBONATE ORAL Take by mouth. Active IRON, CARBONYL ORAL Take by mouth. Activ e bumetanide (BUMEX) 1 mg tablet Take 1 mg by mouth daily. Active gabapentin (NEURONTIN) 600 mg tablet Take 600 mg by mouth 2 times daily. Active potassium chloride (KLOR-CON M20) 20 mEq Extended Release tablet Take 20 mEq by mouth daily. Active celecoxib (CeleBREX) 100 mg capsule Take 100 mg by mouth 2 times daily. Active citalopram (CeleXA) 20 mg tablet Take 20 mg by mouth daily at bedtime. Active aspirin (ECOTRIN EC) 81 mg Tablet, Delayed Release (E.C.) Take 81 mg by mouth daily. Active rosuvastatin (CRESTOR) 10 mg tablet Take 10 mg by mouth daily. Active magnesium oxide 500 mg Capsule Take 400 mg by mouth daily at bedtime. Active apixaban (Eliquis) 2.5 mg tablet Take 2.5 mg by mouth 2 times daily. Active CALCIUM CARBONATE-VITAM IN D3 ORAL Take 50 mg by mouth daily. Active ASCORBIC ACID, VITAMIN C, ORAL Take 250 mg by mouth daily. Active cyanocobalamin 1,000 mcg Tablet Take 1,000 mcg by mouth daily. Active fluticasone-ume clidinium-vilan terol (Trelegy Ellipta) 100-62.5-25 mcg Disk with Device Take 1 Puff by inhalation daily. Active albuterol sulfate HFA 90 mcg/actuation aerosol inhaler Take 1 Puff by inhalation every 6 hours as needed for Shortness of Breath. Active CALCIUM ORAL Take by mouth. Ac tive sucralfate (CARAFATE) 1 gram tablet Take 1 Tablet (1 Gram) by mouth 4 times daily before meals and at bedtime. 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 11/19/2024 Other dysphagia 11/19/2024 COPD (chronic obstructive pulmonary disease) Iron deficiency anemia 11/19/2024 Diverticulosis 11/19/2024 Internal hemorrhoid 11/19/2024 Encounters Date Type Department Care Team Description 03/17/2025 External Device Data [facility] ABSTRACTION Provider, Abstract 03/17/2025 External Device Data [facility] ABSTRACTION Provider, Abstract 02/16/2025 External Device Data [facility] ABSTRACTION Provider, Abstract 01/21/2025 External Device Data [facility] ABSTRACTION Provider, Abstract 01/20/2025 External Device Data [facility] ABSTRACTION Provider, Abstract 01/19/2025 External Device Data [facility] ABSTRACTION Provider, Abstract from Last 3 Months Family History Medical History Relation Name Comments Colon Cancer Neg Hx Social History Tobacco Use Types Packs/Day Years Used Date Smoking Tobacco: Former Cigarettes Tobacco Cessation:Counseling Given: Not Answered Alcohol Use Standard Drinks/Week Comments Not Currently 0 (1 standard drink = 0.6 oz pur e alcohol) Comments No Sex and Gender Information Value Date Recorded Sex Assigned at Not on file Legal Sex Female 2:24 AM INSIDE UPHOLSTERER Gender Identity Not on file Sexual Orientation Not on file Last Filed Vital Signs Vital Sign Reading Time Taken Comments Blood Pressure 143/50 11/19/2024 9:47 AM CDT Pulse 75 11/19/2024 9:47 AM CDT Temperature - - Respiratory Rate 18 11/19/2024 9:47 AM CDT Oxygen Saturation 100% 11/19/2024 9:47 AM CDT Inhaled Oxygen Concentration - - Weight 65.8 kg (145 lb) 09/03/2024 9:56 AM INSIDE UPHOLSTERER Height 157.5 cm (5' 2 ) 09/03/2024 9:56 AM INSIDE UPHOLSTERER Body Mass Index 26.52 09/03/2024 9:56 AM INSIDE UPHOLSTERER Plan of Treatment Health Maintenance Due Date Last Done Comments OSTEOPOROSIS SCREENING 2010 RSV VACCINE (60+ or ) (1 - 1-dose 75+ series) 2020 COVID-19 Vaccine (5 - 2023-2 5 season) 2024 03/13/2022, 06/20/2021, 10/28/2020, Additional history exists ZOSTER VACCINE (3 of 3) 11/18/2024 09/23/2024, 09/02 INFLUENZA VACCINE (#1) 2025 , 01/01/2022, 01/01/2022, Additional history exists DTAP/TDAP/TD VACCINES (2 - T d or Tdap) 07/22/2025 07/22/2015 PNEUMOCOCCAL VACCINE 50+ YEARS Completed 0 09/23/2024, 07/26/2022, 07/26/2020, Additional history exists COLORECTAL SCREENING Discontinued 11/19/2024, 11/20/19 25 Colorectal Cancer Screening Discontinued FIT-DNA Q 3 years Discontinued FIT/FOBT Q 1 year Discontinued Flex Sig/CT Colonography Q 5 years Discontinued Procedures Procedure Name Priority Date/Time Associated Diagnosis Comments COLONOSCOPY REPORT 11/19/2024 9: 34 AM CDT from Last 3 Months or Most Recently Relevant to Health Maintenance Results * COLONOSCOPY REPORT (11/19/2024 9:34 AM CDT) Narrative Procedure Note Brandon Vernon DO - 11/19/2024 9:34 AM CDT [facility] GI Patient Name: Maddison Jenkins Procedure Date: 11/19/2024 Date of : 1945 Admit Type: Outpatient Age: 79 Attending MD: Brandon Vernon DO, Procedure: Colonoscopy Indications: Hematochezia, Iron deficiency anemia Providers: Brandon Vernon DO Referring MD: Medicines: Propofol per Anesthesia Complications: No immediate complications. Procedure: Pre-Anesthesia Assessment: - Prior to the procedure, a History and Physical was performed, and patient medications and allergies were reviewed. The patient's tolerance of previous anesthesia was also reviewed. The risks and benefits of the procedure and the sedation options and risks were discussed with the patient. All questions were answered, and informed consent was obtained. Prior Anticoagulants: The patient has taken no anticoagulant or antiplatelet agents. ASA Grade Assessment: III - A patient with severe systemic disease. After reviewing the risks and benefits, the patient was deemed in satisfactory condition to undergo the procedure. After I obtained informed consent, the scope was passed under direct vision. Throughout the procedure, the patient's blood pressure, pulse, and oxygen saturations were monitored continuously. The Colonoscope was introduced through the anus and advanced to the cecum, identified by appendiceal orifice and ileocecal valve. The colonoscopy was performed without difficulty. The patient tolerated the procedure well. The quality of the bowel preparation was excellent. Estimated Blood Loss: Estimated blood loss: none. Findings: severe diverticulosis Extremely redundant colon Internal hemorrhoids Cecal valve was visualized but the interiorr was poorly visualized due to inability to pass the endoscope all the way down to the cecum despite position changes and abdominal bracing Recommendation: - Continue present medications. - High fiber diet. Brandon Vernon DO 11/19/2024 9:34:07 AM This report has been signed electronically. Number of Addenda: 0 Note Initiated On: 11/19/2024 8:34 AM Scope Withdrawal Time 0 hours 6 minutes 45 seconds Scope In: 9:00:17 AM Scope Out: 9:21:21 AM Patient Profile: This is a 79 year old female. [address] [place] [address] Brandon Vernon DO GI PROCEDURE ORDERABLES Final Result from Last 3 Months or Most Recently Relevant to Health Maintenance Insurance [employer] [facility] Advance Directives For more information, please contact: [phone] * Full Code (Latest Code Status on File) Date Activated Date Inactivated Comments 11/19/2024 7:49 AM 11/19/2024 12:09 PM * Full Code Date Activated Date Inactivated Comments 11/19/2024 7:49 AM 11/19/2024 7:49 AM
--- OUTSIDE RECORDS SUMMARY | 2025-04-06 05:48 | XMS_ITS | Clinical Summary ---
Author Organization [facility] [email or web address], [facility] Address [address] [facility] [address] [place] [address] Phone Care Team Providers Care Crutching Contractor Name Role Phone Zhang Gamboa MD Primary Care Provider [phone] Allergies No known active allergies Medications dicyclomine (BENTYL) 20 MG tablet Take 20 mg by mouth in the morning and 20 mg in the evening. Active bumetanide (BUMEX) 1 MG tablet Take 1 mg by mouth 1 (one) time each day Active donepezil (ARICEPT) 10 MG tablet Take 10 mg by mouth every night Active ferrous sulfate 325 (65 Fe) MG tablet Take 325 mg by mouth 1 (one) time each day with breakfast Active fluticasone (FLONASE) 50 MCG/ACT nasal spray Administer 1 spray into each nostril 1 (one) time each day Active gabapentin (NEURONTIN) 300 MG capsule Take 600 mg by mouth in the morning and 600 mg in the evening. Active Magnesium 400 MG tablet Take by mouth Active nitroglycerin (NITROSTAT) 0.[address] 0.4 mg under the tongue every 5 (five) minutes if needed for chest pain Active pantoprazole (PROTONIX) 40 MG EC tablet Take 40 mg by mouth 1 (one) time each day before breakfast Do not crush, chew, or split. Active potassium chloride (KLOR-CON M20) 20 MEQ CR tablet Take 20 mEq by mouth in the morning and 20 mEq in the evening. Do not crush or chew. . Active rosuvastatin (CRESTOR) 10 MG tablet Take 10 mg by mouth 1 (one) time each day Active cyanocobalamin (VITAMIN B-12) 1000 MCG tablet Take 1,000 mcg by mouth 1 (one) time each day Active melatonin 3 MG tablet Take by mouth Active apixaban (ELIQUIS) 2.5 MG tablet Take 2.5 mg by mouth in the morning and 2.5 mg in the evening. Active albuterol (2.5 MG/3ML) 0.083% nebulizer solution Take 2.5 mg by nebulization every 6 (six) hours if needed for wheezing Active Albuterol Sulfate (VENTOLIN HFA IN) Inhale Active aspirin (ST HANNY) 81 MG EC tablet Take 81 mg by mouth 1 (one) time each day Active diphenhydrAMINE (BENADRYL) 25 MG capsule Take 25 mg by mouth every 6 (six) hours if needed for itching Active Ascorbic Acid (vitamin C) 500 MG tablet Take 500 mg by mouth 1 (one) time each day Active Cholecalciferol (D3-1000 PO) Take by mouth Act hardy oxygen (O2) gas Inhale 2 L/min continuously via nasal canula 4 liter per minute at night Active betamethasone dipropionate 0.05 % cream 3 Active hydrocortisone 2.5 % cream 3 Active triamcinolone (KENALOG) 0.1 % cream 3 Active citalopram (CeleXA) 20 MG tablet Take 20 mg by mouth 1 (one) time each day Active Active Problems Problem Noted Date Diagnosed Date Chronic kidney disease stage 2 09/25/2023 Anemia 09/25/2023 Sleep apnea 09/25/2023 Essential hypertension 09/25/2023 Atrial fibrillation 09/25/2023 Chronic airway obstruction, not elsewhere classi fied 09/25/2023 Other malignant neoplasm of unspecified site Osteoporosis 09/25/2023 Resolved Problems Problem Noted Date Diagnosed Date Resolved Date Calculus of kidney 09/25/2023 4 Encounters Date Type Department Care Team Description 03/04/2025 Telephone [facility], [facility] [address] [place] [address] Solange Tate MD 01/20/2025 Documentation Only [facility] [address] [address] [facility] [address] [place] [address] Reema Delong 01/19/2025 Telephone [facility] [address] [place] [address] Solange Tate MD from Last 3 Months Family History Medical History Relation Comments Diabetes Father Heart disease Father Hypertension Father Kidney disease Father Cancer Mother Heart disease Mother Hypertension Mother Relation Status Comments Father Mother Social History Tobacco Use Types Packs/Day Years Used Date Smoking Tobacco: Former Cigarettes 2000 Smokeless Tobacco: Never Tobacco Cessation:Counseling Given: Not Answered Alcohol Use Standard Drinks/Week Comments Never 0 (1 standard drink = 0.6 oz pur e alcohol) Comments Unknown Sex and Gender Information Value Date Recorded Sex Assigned at Not on file Legal Sex Female 12:15 PM EDT Gender Identity Not on file Sexual Orientation Not on file Last Filed Vital Signs Vital Sign Reading Time Taken Comments Blood Pressure 122/52 09/22/2024 10:11 AM SHIP CARPENTER Pulse 60 09/22/2024 10:11 AM SHIP CARPENTER Temperature - - Respiratory Rate - - Oxygen Saturation 99% 03/12/2023 9:46 AM CDT Inhaled Oxygen Concentration - - Weight 68.1 kg (150 lb 3.2 oz) 09/22/2024 10:11 AM SHIP CARPENTER Height 157.5 cm (5' 2 ) 09/22/2024 10:11 AM SHIP CARPENTER Body Mass Index 27.47 09/22/2024 10:11 AM SHIP CARPENTER Plan of Treatment Upcoming Encounters Date Type Department Care Team (Late st Contact Info) Description 09/22/2025 9:00 AM SHIP CARPENTER Office Visit [facility] [address] [place] [address] Solange Tate MD [address] [facility] [address] [place] [address] Health Maintenance Due Date Last Done Comments Influenza Vaccine (#1) 2025 09/23/2024, 2019 Pneumococcal Vaccine: 50+ Years Completed 07/26/2022, 07/26/2020, 07/09/2018, Additional history exists Hepatitis B Vaccine Aged Out No longe r eligible based on patient's age to complete this topic Insurance [employer] Care Teams Crutching Contractor Relationship Specialty Start Date End Date Zhang Gamboa MD PCP - General Family Medicine 06/27/22
--- OUTSIDE RECORDS SUMMARY | 2025-04-06 05:48 | XMS_ITS | Patient Health Record ---
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 Role Phone Zhang Gamboa Primary Care Provider UnavailAme Martinez Unavailable [phone] Arabella Collins Unavailable Unavailable Allergies Allergen (clinical drug ingredient) Drug/Non Drug Allergy documented on EMR Reaction Allergy Type Onset Date Status NKDA : NO KNOWN DRUG ALLERGIES Unknown Drug Allergy Active Reason For Referral No Information Medications Medication SIG (Take, Route, Frequency, Duration) Notes Start Date End Date Status Crestor 10 MG Tablet 1 tablet Orally Onc e a day Active Potassium Chloride ER 20 MEQ Tablet Extended Release 1 tablet with food Orally Once a day Active Aspirin 81 MG Tablet Delayed Release 1 tablet Orally Once a day Active Trelegy Ellipta 100-62.5-25 MCG/INH Aerosol Powder Breath Activated 1 puff Inhalation Once a day Active Furosemide 40 MG Tablet 1 tablet Orally Once a day Active Voltaren 1 % Gel as directed Externally Active Venofer 20 MG/ML Solution as directed Intravenous Dr. Collins's office Active Albuterol Sulfate HFA 108 (90 Base) MCG/ACT Aerosol Solution 1 puff as needed Inhalation every 4 hrs Active Donepezil HCl 10 MG Tablet 1 tablet at bedtime Orally Once a day Active Vitamin C 500 MG Tablet Chewable 1 tablet Orally Once a day Active Gabapentin 300 MG Capsule 2 capsules in AM and 3 capsules in the evening Orally twice a day Active Metoprolol Tartrate 25 MG Tablet 0.5 tablet Orally Twice a day Active Iron (Ferrous Sulfate) 325 (65 Fe) MG Tablet 1 tablet Orally Once a day Active Vitamin B12 1000 MCG Tablet Extended Release 1 tablet Orally Once a day Active Eliquis 5 MG Tablet 1 tablet orally twice a day Active Metamucil 48.57 % Powder as directed Orally once a day Active Nitroglycerin 0.4 MG Tablet Sublingual as directed Sublingual Active MiraLax 17 GM/SCOOP Powder as directed Orally once a day Active Bumetanide 1 MG Tablet 1 tablet Orally O nce a day Active ProAir HFA 108 (90 Base) MCG/ACT Aerosol Solution 1 puff as needed Inhalation every 4 hrs Active Anastrozole 1 MG Tablet 1 tablet Orally Once a day Active Citalopram Hydrobromide 20 MG Tablet 1 tablet Orally Once a day Active Magnesium Oxide 500 MG Tablet 1 tablet as needed Orally Once a day Active Arimidex 1 MG Tablet 1 tablet Orally Onc e a day Active Flonase Allergy Relief 50 MCG/ACT Suspension 1 spray in each nostril Nasally Once a day Active Lisinopril 10 MG Tablet 1 tablet Orally Once a day Active Pantoprazole Sodium 40 MG Tablet Delayed Release 1 tablet Orally twice a day Active Immunizations Vaccine Route Administration Date Status Comme nts Influenza (whole), CPT 20856 Inactive Unknown 08/13/2016 Administered Social History Tobacco Use: Social History Observation Description Date Details (start date - stop date) Former Smoker NA - NA Social History Drugs/Alcohol: Social Info Question Answer Notes Alcohol Screen (Audit-C) Did you have a drink containing alcohol in the past year? No Points 0 Interpretation Negative Tobacco Use: Social Info Question Answer Notes xTobacco Use/Smoking Are you a former smoker How long has it been since you last smoked? 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) Active confirmed [id number] m ed Description:Mati nary arteriosclerosis Problem Dilated cardiomyopathy (202303519) Dilated cardiomyopathy (I42.0) Active confirmed [id number] ed Description:Donte estive obstructive cardiomyopathy Problem Chronic obstructive pulmonary disease (90501480) Chronic obstructive pulmonary disease, unspecified (J44.9) Active confirmed [id number] ed Description:Asphalt Spreader 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 Problem Bradycardia (16309260) Bradycardia, unspecified (R00.1) Active confirmed [id number] m ed Description:Graham ycardia Problem Essential hypertension (00965909) Essential primary hypertension (I10) Active confirmed [id number] ed Description:Esse ntial hypertension Plan Of Treatment Pending Test Test Name Order Date CBC w\ Auto Diff 72148 10/19/2021 Erythropoietin 18811 10/19/2021 Ferritin 00202 10/19/2021 Iron Binding Capacity Total 28418 2021 Iron Level 77721 10/19/2021 Capsule Endoscopy 10/19/2021 Medical (General) History Medical History History ICD Code At risk for falls Dementia Depressive disorder Gastroesophageal reflux disease Hypercholesterolemia Hypertensive disorder, systemic arterial Incontinence Obesity Iron Deficiency Anemia History of DVT/pulmonary embolism Right Breast cancer Surgical History Surgery Date(Month/Year) Colonoscopy 02/06/2013 EGD 02/06/2013 Inferior vena cava filter 06/27/2020 Cholecystectomy 4 Back surgeries MARILU/BSO Right breast lumpectomy Bilateral knee Arthroplasty CEIOLI Bilateral Left shoulder rotator cuff repair Cervical spine surgery Hospitalization History Reason Date(Month/Year) surgeries Anemia -blood transfusion 08/2021 Anemia - transfusion 09/10/2021
--- OUTSIDE RECORDS SUMMARY | 2025-04-06 05:48 | XMS_ITS | Encounter Summary ---
Author Organization [facility] [employer] Address [address] [facility] [address] [place] [address] Phone Care Team Providers Care Spring Tester Name Role Phone Zhang Gamboa MD Primary Care Provider [phone] Encounter Details Date Type Department Care Team (Late st Contact Info) Description 06/27/2022 Orders Only [facility] [address] [facility] [address] [place] [address] Stage 3 chronic kidney disease, not otherwise specified (HCC) Social History Tobacco Use Types Packs/Day Years Used Date Smoking Tobacco: Never Assessed Comments Unknown Sex and Gender Information Value Date Recorded Sex Assigned at Not on file Legal Sex Female 12:15 PM EDT Gender Identity Not on file Sexual Orientation Not on file documented as of this encounter Plan of Treatment Upcoming Encounters Date Type Department Care Team (Late st Contact Info) Description 09/22/2025 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
--- OUTSIDE RECORDS SUMMARY | 2025-04-06 05:49 | XMS_ITS | Patient Health Record ---
Author Organization [facility] Address [address] [place] [address] Care Team Providers Care Hris Analyst Name Role Phone Juan Kathleen Primary Care Provider Reason For Referral No Information Problems No Known Problems Plan Of Treatment No Information Insurance Providers Payer Name Payer Address Payer Phone Subscriber Number Group Number Insured Name Patient Relationship to Insured Coverage Start Date Coverage End Date National Med Test [address] [facility] [place] [phone] [id number] Maddison Marcos Self - patient is the insured 6
--- NOTE | 2025-04-06 06:11 | W.ED.BACK ---
HPI - Back Pain/Injury General: Chief Complaint: Back Pain/Injury Stated Complaint: BACK PAIN Time Seen by Provider: 04/06/25 06:08 History of Present Illness: 79-year-old female presents emergency room with complaints of back pain x 2 weeks. Patient states she recently fell and landed on her buttocks complaining of increasing back pain. She was not seen after the fall. She has a history of iron deficiency anemia. Associated symptoms: Deny abdominal pain, chills, dysuria, fever(s) or urinary urgency Related Data Home Medications ?Medication ?Instructions ?Recorded ?Confirmed ferrous sulfate 324 mg (65 mg 324 mg PO DAILY 09/09/19 03/17/25 iron) tablet,delayed release magnesium oxide 500 mg capsule 500 mg PO DAILY 12/10/19 03/17/25 mecobalamin (vitamin B12) 1,000 1,000 mcg PO DAILY 12/10/19 03/17/25 mcg chewable tablet fluticasone propionate 50 1 spray intranasal BID 01/26/22 03/17/25 mcg/actuation nasal spray,suspension donepezil 10 mg tablet 1 tab PO DAILY 06/19/22 03/17/25 pantoprazole 40 mg tablet,delayed 40 tab PO DAILY 06/19/22 03/17/25 release rosuvastatin 10 mg tablet 1 tab PO QPM 06/19/22 03/17/25 bumetanide 1 mg tablet 1 mg PO DAILY 07/30/22 03/17/25 cholecalciferol (vitamin D3) 25 25 mcg PO DAILY 07/30/22 03/17/25 mcg (1,000 unit) capsule diphenhydramine HCl 25 mg tablet 25 mg PO TID PRN Allergic Symptoms 07/30/22 03/17/25 (Benadryl Allergy) gabapentin 600 mg tablet 600 mg PO BID 11/04/24 03/17/25 Previous Rx's ?Medication ?Instructions ?Recorded Power step arch support #2 ea 05/04/21 nitroglycerin 0.4 mg sublingual 0.4 mg sublingual Q5M PRN Chest 05/22/22 tablet Pain #25 tabs potassium chloride 20 mEq 20 meq PO BID #180 tabs 05/22/22 tablet,extended release(part/cryst) (Klor-Con M) ascorbic acid (vitamin C) 500 mg 500 mg PO DAILY #90 caps 09/25/22 capsule apixaban 2.5 mg tablet (Eliquis) 2.5 mg PO BID 30 days #60 tabs 04/29/23 Keagan Brace #1 ea 05/13/23 hinged knee brace #1 ea 09/10/23 Supinator to right #1 ea 03/18/24 fluticasone fur. 100 mcg-umeclid 1 inh inhalation DAILY #60 ea 05/07/24 62.5 mcg-vilant 25 mcg inhalat.powder (Trelegy Ellipta) celecoxib 100 mg capsule (Celebrex) 100 mg PO DAILY #30 caps 01/13/25 hydrocodone 10 mg-acetaminophen 1 tab PO Q8H PRN pain #15 tabs 01/13/25 325 mg tablet prednisone 20 mg tablet 20 mg PO TID #15 tabs 04/06/25 tramadol 50 mg tablet 50 mg PO Q8H PRN pain #10 tabs 04/06/25 Allergies Allergy/AdvReac Type Severity Reaction Status Date / Time No Known Allergies Allergy Verified 03/17/25 16:25 Review of Systems Const: Denies: fever(s) or chills Card: Denies: chest pain Resp: Denies: dyspnea GI: Denies: abdominal pain : Denies: dysuria, urinary frequency or urinary urgency Musc: Reports: back pain; Denies: neck pain Skin/Breast: Denies: rash PFSH ED PFSH: Medical History Osteopenia Anemia Greater trochanteric bursitis of left hip Osteoarthritis of left hip History of nonmelanoma skin cancer 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 Presence of IVC filter DVT (deep venous thrombosis) Bradycardia Patient states her heart rate runs in 40s to 50s at home Chronic kidney disease Hematoma Small complex fluid lesion adjacent to superficial thrombophlebitis in the left calf, 26 x 10 x 24 mm, Superficial thrombophlebitis Pulmonary emboli Obstructive sleep apnea Chronic respiratory failure with hypoxia and hypercapnia Varicose veins of left leg with edema COPD (chronic obstructive pulmonary disease) Tachycardia HTN (hypertension) Hyperlipidemia GERD (gastroesophageal reflux disease) CHF (congestive heart failure) Acute depression IBS (irritable bowel syndrome) Alzheimer disease Seasonal allergic rhinitis Rheumatoid arthritis B12 deficiency Muscle spasm Breast cancer Surgical History Status post hardware removal Date of procedure: January 12, 2025 Pre-op diagnosis: Retained painful hardware following left periprosthetic distal femur fracture with supracondylar and intercondylar components as well as distal femoral shaft fracture Post-op diagnosis: Left femur retained painful hardware following left periprosthetic distal femur fracture with supracondylar and intercondylar components as well as distal femoral shaft fracture Procedure done: Left femoral shaft and distal femur hardware removal with removal of bone from over the plate. 12 screws and 1 extra long femoral plate. Implants: Removal of 12 screws and 1 extra long femoral plate Specimens removed/disposition: Plate and screws Surgeon: Blessing Joyner MD History of total left knee replacement S/P ORIF (open reduction internal fixation) fracture (04/25/23) ORIF of left periprosthetic distal femur fracture S/P IVC filter History of back surgery H/O neck surgery H/O shoulder surgery H/O wrist surgery History of ear surgery History of lumpectomy of right breast (02/26/19) Right breast lumpectomy with axillary sentinel lymph node biopsy History of hysterectomy History of cholecystectomy Family History Father CAD (coronary artery disease) Cancer Mother CAD (coronary artery disease) Brother CAD (coronary artery disease) Sister Cancer Other Diabetes Hyperlipidemia Hypertension Lung disease Psychiatric illness Social History Smoking and tobacco/nicotine status: never used tobacco/nicotine Quit status (tobacco/nicotine): has quit using Year quit tobacco: 1995 - PD x 40 Years Alcohol intake: never Substance/Drug Use: never Lives independently: Yes Household members: spouse Marital status: Current occupational status: retired Do you think of yourself as: Straight/Heterosexual Current gender identity: Female Physical Exam Const: GENERAL APPEARANCE: cooperative ORIENTATION/CONSCIOUSNESS: Yes awake, Yes oriented to person, Yes oriented to place and Yes oriented to time HENMT: COMMON NORMALS: normocephalic, atraumatic and hearing grossly normal bilaterally HEAD & SCALP: normocephalic and atraumatic Resp: COMMON NORMALS: normal respiratory effort, No retractions, No use of accessory muscles and clear to auscultation bilaterally AUSCULTATION: clear to auscultation bilaterally Cardio: COMMON NORMALS: regular rate, regular rhythm and No murmurs present (Cardio) RATE: regular rate RHYTHM: regular rhythm GI: COMMON NORMALS: Soft to palpation and No hepatosplenomegaly present AUSCULTATION: Yes normoactive bowel sounds PALPATION: Yes Soft to palpation, No Tenderness to palpation present (GI), No Guarding due to palpation present (GI) and Yes No hepatosplenomegaly present Extremity: COMMON NORMALS: normal to inspection, capillary refill normal, no clubbing, cyanosis or edema, no calf tenderness and no pedal edema Neuro: SENSORIUM/ORIENTATION: Yes oriented to person, Yes oriented to place and Yes oriented to time Skin: COMMON NORMALS: no rashes or lesions noted GENERAL SKIN EXAM: no rashes or lesions noted Course Vital Signs: Vital signs: Vital Signs Temperature 98.8 F 04/06/25 05:46 Pulse Rate 69 04/06/25 10:01 Respiratory Rate 17 04/06/25 08:33 Blood Pressure 137/44 04/06/25 10:01 Pulse Oximetry 92 04/06/25 10:01 Oxygen Delivery Me thod Nasal Cannula 04/06/25 08:30 Oxygen Flow Rate 2 04/06/25 08:30 MDM - Back Pain/Injury Medical Decision Making Labs and imaging reviewed. Medical Records Patient is anemic but is actually improved from where she was at her last check 2 months ago. This can continue to be watched as an outpatient. Today's fall was ground-level mechanical fall imaging of her back sacrum and pelvis did not show any acute fractures. Her biggest was concerned when she did not have adequate medicines for pain control. Started on short course of tramadol to use as needed put her on prednisone tapers will have her follow-up with her primary care doctor Labs I reviewed the patient's lab results. 04/06/25 06:42 04/06/25 06:42 Radiology Impressions Lumbar Spine CT 04/06/25 06:37 IMPRESSION: 1. Status post lumbar fusion hardware with bone grafting from L2-L4. No hardware fractures identified. 2. Extensive posterior laminectomy defects from L2-L4. 3. No high-grade stenosis identified. No large disc protrusions. 4. IVC filter is noted. 5. Mild central disc protrusion at L5-S1 with slight contact on the LEFT S1 nerve root. Pelvis X-Ray 04/06/25 06:37 IMPRESSION: No acute abnormality. Sacrum and Coccyx X-Ray 04/06/25 06:37 IMPRESSION: Limited examination with no acute abnormality. Repeat lateral as clinically warranted Laboratory Results WBC 5.79 10^3/uL (3.29-11.43) 04/06/25 06:42 RBC 3.55 10^6/uL (3.85-5.65) L 04/06/25 06:42 Hgb 9.00 g/dL (11.27-16.99) L 04/06/25 06:42 Hct 32.7 % (36-47) L 04/06/25 06:42 MCV 92.1 fl (85-98) 04/06/25 06:42 MCH 25.4 pg (27-33) L 04/06/25 06:42 MCHC 27.5 g/dL (30-55) L 04/06/25 06:42 RDW 20.5 % (12.1-15.1) H 04/06/25 06:42 Plt Count 262 10^3/cmm (157-399) 04/06/25 06:42 MPV 8.2 fL (7.4-10.4) 04/06/25 06:42 Neut % (Auto) 75.2 % 04/06/25 06:42 Lymph % (Auto) 7.8 % 04/06/25 06:42 [place] % (Auto) 13.6 % 04/06/25 06:42 Eos % (Auto) 2.2 % 04/06/25 06:42 Baso % (Auto) 1.0 % 04/06/25 06:42 Neut # (Auto) 4.35 10^3/uL (1.8-7.7) 04/06/25 06:42 Lymph # (Auto) 0.5 10^3/uL (0.8-4.8) L 04/06/25 06:42 [place] # (Auto) 0.8 10^3/uL (0.2-0.9) 04/06/25 06:42 Eos # (Auto) 0.1 10^3/uL (0.0-0.8) 04/06/25 06:42 Baso # (Auto) 0.1 10^3/uL (0.0-0.1) 04/06/25 06:42 Nucleated RBC % (auto) 0 % 04/06/25 06:42 Nucleated RBCs # 0.0 /100WBC 04/06/25 06:42 Sodium 141 mmol/L (136-145) 04/06/25 06:42 Potassium 4.2 mmol/L (3.5-5.1) 04/06/25 06:42 Chloride 101 mmol/L (98-107) 04/06/25 06:42 Carbon Dioxide 33 mmol/L (22-29) H 04/06/25 06:42 Anion Gap 11.2 (5-19) 04/06/25 06:42 BUN 23 mg/dL (8-23) 04/06/25 06:42 Creatinine 1.0 mg/dL (0.5-0.9) H 04/06/25 06:42 GFR Calculation Not Reportable 04/06/25 06:42 Glucose 104 mg/dL (65-115) 04/06/25 06:42 Calculated Osmolality 296 mOsm/kg (285-295) H 04/06/25 06:42 Calcium 8.8 mg/dL (8.5-10.5) 04/06/25 06:42 Total Bilirubin 0.4 mg/dL (0.15-1.2) 04/06/25 06:42 AST 22 U/L (0-32) 04/06/25 06:42 ALT 9 U/L (0-33) 04/06/25 06:42 Alkaline Phosphatase 129 U/L (35-105) H 04/06/25 06:42 Total Protein 6.2 g/dL (6.6-8.7) L 04/06/25 06:42 Albumin 3.6 g/dL (3.5-5.2) 04/06/25 06:42 Globulin 2.6 g/dL (1.3-4.6) 04/06/25 06:42 Urine Color Yellow (Yellow) 04/06/25 07:42 Urine Appearance Clear (CLEAR) 04/06/25 07:42 Urine pH 8.0 (5-7) A 04/06/25 07:42 Ur Specific Freeman 1.009 (1.005-1.030) 04/06/25 07:42 Urine Protein Negative (Negative) 08/05/25 07:42 Urine Glucose (UA) Negative (Normal) 04/06/25 07:42 Urine Ketones Negative (Negative) 04/06/25 07:42 Urine Blood Negative (Negative) 04/06/25 07:42 Urine Nitrate Negative (Negative) 04/06/25 07:42 Urine Bilirubin Negative (Negative) 04/06/25 07:42 Urine Urobilinogen 1.0 mg/dL (Negative) 04/06/25 07:42 Ur Leukocyte Esterase Negative (Negative) 04/06/25 07:42 Urine RBC 0-2 /hpf (0-2) 04/06/25 07:42 Urine WBC 0-5 /hpf (0-5) 04/06/25 07:42 Ur Squamous Epith Cells 0-5 /hpf (0-5) 04/06/25 07:42 Amorphous Sediment Not Reportable 04/06/25 07:42 Urine Bacteria None seen /hpf (NONE) 04/06/25 07:42 Hyaline Casts 0-4 /lpf H 04/06/25 07:42 All radiology interpretation(s) finalized by discharge Discharge Plan Discharge Patient Disposition: Home Clinical Impression: Back pain, Fall Condition: Stable Prescriptions: New prednisone 20 mg tablet 20 mg PO TID Qty: 15 0RF Rx Instructions: 1 p.o. 3 times daily x3 days, 1 p.o. twice daily x2 days, 1 p.o. daily x2 days tramadol 50 mg tablet 50 mg PO Q8H PRN (Reason: pain) Qty: 10 0RF No Action (DME) Power step arch support See Rx Instructions .Route .MEDSUPPLY Qty: 2 0RF Rx Instructions: As directed ferrous sulfate 324 mg (65 mg iron) tablet,delayed release (DR/EC) 324 mg PO DAILY mecobalamin (vitamin B12) 1,000 mcg tablet,chewable 1,000 mcg PO DAILY magnesium oxide 500 mg capsule 500 mg PO DAILY fluticasone propionate 50 mcg/actuation spray,suspension 1 spray intranasal BID Rx Instructions: administer into each nostril (DME) Keagan Brace See Rx Instructions .Route .MEDSUPPLY Qty: 1 0RF Rx Instructions: As directed (DME) Supinator to right See Rx Instructions .Route .MEDSUPPLY Qty: 1 0RF Rx Instructions: As directed bumetanide 1 mg tablet 1 mg PO DAILY cholecalciferol (vitamin D3) 25 mcg (1,000 unit) capsule 25 mcg PO DAILY diphenhydramine HCl [Benadryl Allergy] 25 mg tablet 25 mg PO TID PRN (Reason: Allergic Symptoms) pantoprazole 40 mg tablet,delayed release (DR/EC) 40 tab PO DAILY donepezil 10 mg tablet 1 tab PO DAILY rosuvastatin 10 mg tablet 1 tab PO QPM nitroglycerin 0.4 mg tablet, sublingual 0.4 mg sublingual Q5M PRN (Reason: Chest Pain) Qty: 25 3RF Rx Instructions: do not exceed 3 doses per episode potassium chloride [Klor-Con M20] 20 mEq tablet,ER particles/crystals 20 meq PO BID Qty: 180 3RF ascorbic acid (vitamin C) 500 mg capsule 500 mg PO DAILY Qty: 90 0RF (DME) hinged knee brace See Rx Instructions .Route .MEDSUPPLY Qty: 1 0RF Rx Instructions: As directed Trelegy Ellipta 100-62.5-25 mcg blister with device 1 inh inhalation DAILY Qty: 60 6RF hydrocodone-acetaminophen 10-325 mg tablet 1 tab PO Q8H PRN (Reason: pain) Qty: 15 0RF celecoxib [Celebrex] 100 mg capsule 100 mg PO DAILY Qty: 30 0RF Eliquis 2.5 mg tablet 2.5 mg PO BID 30 Days Qty: 60 0RF gabapentin 600 mg tablet 600 mg PO BID Discharge Orders: Discharge ED (Routine); Ordered 04/06/25 Ordered By: Bruce Londono Referrals: Zhang Gamboa MD [Primary Care Provider, Family Practice] Patient Instructions: Opioid Safety, Pain Management, Patient Portal & Marisol Instructions Activity Restrictions/Additional Instructions: [facility]. It is very important that you follow up as instructed or that you return to the Emergency Department should you have concerns or if your condition changes or worsens in any way. You were seen in the emergency room with complaint of back pain after a fall CT did not show any acute fractures x-rays to hips and coccyx did not show any fractures of those areas either. You are discharged home with tramadol for pain as well as a steroid taper follow-up with your primary care doctor. Print Language: Belgian Coding Level of Care Code ED Bobbin Inspector for Gus Monaco
[2025-04-06 06:19] VITALS: PULSE 71; O2SAT 96
--- NOTE | 2025-04-06 06:37 | CT_ITS ---
WS: [id number] CT LUMBAR SPINE, noncontrast. HISTORY: Trauma TECHNIQUE: Contiguous 2.0 mm axial imaging are performed. Sagittal and coronal reformats are submitted and reviewed. All CT scans at [facility] use at least one of these dose optimization techniques: automated exposure control; mA and/or kV adjustment per patient size (includes targeted exams where dose is matched to clinical indication); or iterative reconstruction. IV contrast: None DLP: 425.69 mGy.cm COMPARISON: 09/10/2021 Status post posterior lumbar fusion from L2-L4. No lucency noted surrounding the pedicle screws. No hardware fracture. Artifact from the hardware limiting assessment of the bone and soft tissues. L1-2: Diffuse disc bulging osteophytic ridging. Facet arthritis. Mild foraminal stenosis. L2-3: Diffuse disc bulging and osteophytosis. Posterior large laminectomy defect. Facet arthritis and fused bone graft. No significant stenosis. L3-4: Large posterior laminectomy defect. No obvious stenosis. L4-5: Mild disc bulging. Large posterior laminectomy defect. Patulous thecal sac. Fused bone grafting. L5-S1: Central disc protrusion slight contact on the LEFT S1 nerve root. LEFT hemilaminectomy defect. Fused bone grafting. Atherosclerotic disease within the abdominal aorta. There is an IVC filter also in place. Nonobstructing calcifications LEFT kidney. CT/CT lumbar spine wo con* [id number] IMPRESSION: 1. Status post lumbar fusion hardware with bone grafting from L2-L4. No hardwa re fractures identified. 2. Extensive posterior laminectomy defects from L2-L4. 3. No high-grade stenosis identified. No large disc protrusions. 4. IVC filter is noted. 5. Mild central disc protrusion at L5-S1 with slight contact on the LEFT S1 ne rve root.
--- NOTE | 2025-04-06 06:37 | XR_ITS ---
WS: [id number] XR sacrum coccyx min 2V [id number] REASON FOR EXAM: Trauma FINDINGS: The coccyx is not completely demonstrated on the lateral view. Distalmost coccyx excluded. No fracture or dislocation of the coccyx is identified. XR/XR sacrum coccyx min 2V [id number] IMPRESSION: Limited examination with no acute abnormality. Repeat lateral as clinically warranted
--- NOTE | 2025-04-06 06:37 | XR_ITS ---
WS: [id number] XR pelvis 1-2V* [id number] REASON FOR EXAM: Trauma FINDINGS: No fracture identified. Sacrum, iliac wings, and pubic rami are intact. XR/XR pelvis 1-2V* [id number] IMPRESSION: No acute abnormality.
[2025-04-06 06:53] LABS: Hematocrit 32.7 % (36-47); Hemoglobin 9.00 g/dL (11.27-16.99); Mean Corpuscular HGB Conc 27.5 g/dL (30-55); Mean Corpuscular Hemoglobin 25.4 pg (27-33); Mean Corpuscular Volume 92.1 fl (85-98); Nucleated Red Blood Cells % 0 %; Platelet Count 262 10^3/cmm (157-399); Red Blood Count 3.55 10^6/uL (3.85-5.65); White Blood Count 5.79 10^3/uL (3.29-11.43)
[2025-04-06 07:11] LABS: Alanine Aminotransferase 9 U/L (0-33); Albumin Level 3.6 g/dL (3.5-5.2); Alkaline Phosphatase 129 U/L (35-105); Anion Gap 11.2 (5-19); Aspartate Amino Transferase 22 U/L (0-32); Blood Urea Nitrogen 23 mg/dL (8-23); Calcium 8.8 mg/dL (8.5-10.5); Carbon Dioxide 33 mmol/L (22-29); Chloride 101 mmol/L (98-107); Creatinine Clr Calc Pharmacy 40.7236; Globulin 2.6 g/dL (1.3-4.6); Glucose 104 mg/dL (65-115); Osmolality Calculated 296 mOsm/kg (285-295); Potassium 4.2 mmol/L (3.5-5.1); Sodium 141 mmol/L (136-145); Total Protein 6.2 g/dL (6.6-8.7)
[2025-04-06 08:13] LABS: Glucose Urine UA Negative (Normal); Nitrate Urine Negative (Negative); Specific Gravity, Urine 1.009 (1.005-1.030)
[2025-04-06 08:15] LABS: Add Urine Microscopic? YES
[2025-04-06 08:30] VITALS: BP 154/51; PULSE 73; O2SAT 94
[2025-04-06 08:33] VITALS: RESP 17; O2SAT 96
[2025-04-06] MEDS: morphine 4 mg/mL SDV 1 mL IVP (08:33)
[2025-04-06] MEDS: ondansetron 2 mg/ML SDV 2 mL 4 MG IVP (08:34)
[2025-04-06 10:01] VITALS: BP 137/44; PULSE 69; O2SAT 92
== END 2025-04-06 10:02 | disposition home or self-care (01) ==
PROVIDERS: Emergency Provider Family Medicine; PCP Family Medicine
DX: M54.9 Dorsalgia, unspecified (principal); Z79.01 Long term (current) use of anticoagulants; Z87.891 Personal history of nicotine dependence; J44.9 Chronic obstructive pulmonary disease, unspecified; E78.5 Hyperlipidemia, unspecified; I13.0 Hypertensive heart and chronic kidney disease with heart failure and stage 1 through stage 4 chronic kidney disease, or unspecified chronic kidney disease; N18.9 Chronic kidney disease, unspecified; I50.9 Heart failure, unspecified; Z85.3 Personal history of malignant neoplasm of breast; Z85.828 Personal history of other malignant neoplasm of skin
CPT/HCPCS: 36415; 72131; 72170; 72220; 80053; 81001; 85025; 96374; 96375; 99285; J2270; J2405

== ENCOUNTER → 2025-04-28 10:44 | Outpatient (BNVA) | payer MEDICARE, SELFPAY | PROVIDERS: PCP Family Medicine; Visit Provider Nurse Practitioner Family | DX: L21.8 Other seborrheic dermatitis (principal); L72.0 Epidermal cyst; L82.1 Other seborrheic keratosis; L57.8 Other skin changes due to chronic exposure to nonionizing radiation; Z08 Encounter for follow-up examination after completed treatment for malignant neoplasm; Z85.828 Personal history of other malignant neoplasm of skin; L57.0 Actinic keratosis | CPT/HCPCS: 17000; 99214 ==

== ENCOUNTER 2025-05-26 08:08 | Oncology outpatient (recurring) (ONCR) | payer MEDICARE, SELFPAY ==
[2025-05-05 14:00] LABS: Hematocrit 35.5 % (36-47); Hemoglobin 9.50 g/dL (11.27-16.99); Mean Corpuscular HGB Conc 26.8 g/dL (30-55); Mean Corpuscular Hemoglobin 23.5 pg (27-33); Mean Corpuscular Volume 87.9 fl (85-98); Nucleated Red Blood Cells % 0.7 %; Platelet Count 383 10^3/cmm (157-399); Red Blood Count 4.04 10^6/uL (3.85-5.65); White Blood Count 5.68 10^3/uL (3.29-11.43)
[2025-05-05 14:20] LABS: Alanine Aminotransferase 7 U/L (0-33); Albumin Level 3.4 g/dL (3.5-5.2); Alkaline Phosphatase 164 U/L (35-105); Anion Gap 11.2 (5-19); Aspartate Amino Transferase 13 U/L (0-32); Blood Urea Nitrogen 17 mg/dL (8-23); Calcium 8.8 mg/dL (8.5-10.5); Carbon Dioxide 35 mmol/L (22-29); Chloride 103 mmol/L (98-107); Creatinine Clr Calc Pharmacy 50.7413; Ferritin 40 ng/mL (15-150); Globulin 2.4 g/dL (1.3-4.6); Glucose 86 mg/dL (65-115); Iron 13 ug/dL (37-145); Osmolality Calculated 301 mOsm/kg (285-295); Potassium 4.2 mmol/L (3.5-5.1); Sodium 145 mmol/L (136-145); Total Iron Binding Capacity 332 mcg/dl; Total Protein 5.8 g/dL (6.6-8.7); Unsaturated Iron Binding 319 ug/dL (112-347)
[2025-05-26] MEDS: diphenhydrAMINE 50 mg/mL SDV 1mL 25 MG IVP (09:07)
[2025-05-26] MEDS: iron dextran 975 MG in sodium chloride 0.9% 1,000 ML 250.75 MG IV (10:27)
[2025-05-26 14:45] VITALS: BP 122/78; PULSE 78; RESP 17; TEMP 36.1; O2SAT 96
== END 2025-06-01 23:59 | disposition home or self-care (01) ==
PROVIDERS: Internal Medicine; PCP Family Medicine; Visit Provider Family Medicine
DX: D50.9 Iron deficiency anemia, unspecified (principal); Z79.899 Other long term (current) drug therapy; Z87.891 Personal history of nicotine dependence; Z92.3 Personal history of irradiation; Z85.3 Personal history of malignant neoplasm of breast
CPT/HCPCS: 36415; 80053; 82728; 82746; 83010; 83540; 83550; 83615; 85025; 85045; 96365; 96366; 96375; 99213; 99215; J1200; J1750; J7030; J7040; J9999

== ENCOUNTER 2025-06-10 11:36 | Oncology outpatient (recurring) (ONCR) | payer MEDICARE, SELFPAY | END 2025-06-10 23:59 | disposition home or self-care (01) | PROVIDERS: PCP Family Medicine; Visit Provider Internal Medicine | DX: D50.9 Iron deficiency anemia, unspecified (principal); Z79.899 Other long term (current) drug therapy; Z87.891 Personal history of nicotine dependence; Z92.3 Personal history of irradiation; Z85.3 Personal history of malignant neoplasm of breast; I50.9 Heart failure, unspecified; Z08 Encounter for follow-up examination after completed treatment for malignant neoplasm; N63.14 Unspecified lump in the right breast, lower inner quadrant; Z92.23 Personal history of estrogen therapy | CPT/HCPCS: 99213 ==

== ENCOUNTER 2025-06-30 12:09 | Outpatient (CLI) | payer MEDICARE, SELFPAY ==
--- NOTE | 2025-06-30 12:24 | US_ITS ---
WS: [id number] BILATERAL 3D TOMOSYNTHESIS DIGITAL DIAGNOSTIC MAMMOGRAPHY WITH CAD CLINICAL INFORMATION: patient feels right breast mass HISTORY: RIGHT breast lump/pain COMPARISON: 2023 TECHNIQUE: Bilateral CC, MLO, and ML views. FINDINGS: Scattered fibroglandular densities bilaterally. Palpable marker area of concern. Normal underlying parenchymal tissue. Ultrasound of this area is pending. Postoperative changes RIGHT lumpectomy with parenchymal fibrosis. Stable dystrophic calcifications RIGHT breast. RIGHT breast skin thickening unchanged compared to previous compatible with treatment-related changes. ULTRASOUND BREAST RIGHT TECHNIQUE: Ultrasound right breast focused area of concern. CLINICAL INFORMATION: patient feels right breast mass FINDINGS: Ultrasound RIGHT breast 4 o'clock position 5 cm from the nipple. Normal underlying parenchymal tissue. No cystic or solid lesions. No suspicious findings in the area of concern. Skin thickening likely due to chronic treatment-related changes. US/US breast RT limited* [id number] IMPRESSION: DENSITY: There are scattered areas of fibroglandular density. BI-RADS: 2 - Benign. FOLLOW UP: 1 Year Follow-up Recommend return to annual diagnostic mammography.
--- NOTE | 2025-06-30 16:23 | MM_ITS ---
BILATERAL 3D TOMOSYNTHESIS DIGITAL DIAGNOSTIC MAMMOGRAPHY WITH CAD CLINICAL INFORMATION: patient feels right breast mass HISTORY: RIGHT breast lump/pain. History of lumpectomy RIGHT breast COMPARISON: 2023 TECHNIQUE: Bilateral CC, MLO, and ML views. FINDINGS: Scattered fibroglandular densities bilaterally. Palpable marker area of concern. Normal underlying parenchymal tissue. Ultrasound of this area is pending. Postoperative changes RIGHT lumpectomy with parenchymal fibrosis. Stable dystrophic calcifications RIGHT breast. RIGHT breast skin thickening unchanged compared to previous compatible with treatment-related changes. ULTRASOUND BREAST RIGHT TECHNIQUE: Ultrasound right breast focused area of concern. CLINICAL INFORMATION: Right breast mass at 5 o'clock FINDINGS: Ultrasound RIGHT breast 4 o'clock position 5 cm from the nipple. Normal underlying parenchymal tissue. No cystic or solid lesions. No suspicious findings in the area of concern. Skin thickening likely due to chronic treatment-related changes. IMPRESSION: DENSITY: There are scattered areas of fibroglandular density. BI-RADS: 2 - Benign. FOLLOW UP: 1 Year Follow-up Recommend return to annual diagnostic mammography. TRISH
== END 2025-06-30 12:10 | disposition home or self-care (01) ==
LOC: RAD 12:13
PROVIDERS: PCP Family Medicine; Visit Provider Nurse Practitioner Family
DX: C50.411 Malignant neoplasm of upper-outer quadrant of right female breast (principal); Z17.0 Estrogen receptor positive status [ER+]; N63.10 Unspecified lump in the right breast, unspecified quadrant; R92.323 Mammographic fibroglandular density, bilateral breasts; R92.1 Mammographic calcification found on diagnostic imaging of breast; Z90.11 Acquired absence of right breast and nipple; N64.59 Other signs and symptoms in breast
CPT/HCPCS: 76642; 77062; G0279

== ENCOUNTER 2025-06-30 13:00 | Oncology outpatient (recurring) (ONCR) | payer MEDICARE, SELFPAY ==
[2025-06-23 08:10] LABS: Hematocrit 37.0 % (36-47); Hemoglobin 10.20 g/dL (11.27-16.99); Mean Corpuscular HGB Conc 27.6 g/dL (30-55); Mean Corpuscular Hemoglobin 24.5 pg (27-33); Mean Corpuscular Volume 88.9 fl (85-98); Nucleated Red Blood Cells % 0 %; Platelet Count 212 10^3/cmm (157-399); Red Blood Count 4.16 10^6/uL (3.85-5.65); White Blood Count 4.15 10^3/uL (3.29-11.43)
[2025-06-23 08:27] LABS: Alanine Aminotransferase 9 U/L (0-33); Albumin Level 3.9 g/dL (3.5-5.2); Alkaline Phosphatase 134 U/L (35-105); Anion Gap 12.3 (5-19); Aspartate Amino Transferase 23 U/L (0-32); Blood Urea Nitrogen 20 mg/dL (8-23); Calcium 8.9 mg/dL (8.5-10.5); Carbon Dioxide 33 mmol/L (22-29); Chloride 102 mmol/L (98-107); Creatinine Clr Calc Pharmacy 48.4638; Globulin 2.2 g/dL (1.3-4.6); Glucose 61 mg/dL (65-115); Osmolality Calculated 297 mOsm/kg (285-295); Potassium 4.3 mmol/L (3.5-5.1); Sodium 143 mmol/L (136-145); Total Protein 6.1 g/dL (6.6-8.7)
[2025-06-23] MEDS: diphenhydrAMINE 50 mg/mL SDV 1mL 25 MG IVP (10:43)
[2025-06-23] MEDS: IRON DEXTRAN IV (11:17)
[2025-06-23] MEDS: SODIUM CHLORIDE 0.9% IV (11:17)
[2025-06-23 15:19] VITALS: BP 158/70; PULSE 68; RESP 18; TEMP 36.6; O2SAT 95
== END 2025-07-02 23:59 | disposition home or self-care (01) ==
LOC: RAD 07-01 → ONCMED 07-01 09:40
PROVIDERS: PCP Family Medicine; Visit Provider Internal Medicine
DX: Z53.9 Procedure and treatment not carried out, unspecified reason (principal)
CPT/HCPCS: 36415; 80053; 83615; 85025; 96365; 96366; 96375; 99214; J1200; J1750; J7030; J7040; J9999

== ENCOUNTER 2025-07-13 11:20 | Inpatient (IN) | payer MEDICARE, SELFPAY ==
[2025-07-13] VITALS (25 sets, daily range): BP systolic 119–162; BP diastolic 40–80; PULSE 53–110; RESP 14–22; TEMP 36.6–36.9; O2SAT 88–100; BMI 23.9
--- NOTE | 2025-07-13 11:29 | XR_ITS ---
WS: [id number] Exam: XR chest 1V portable [id number] Date/Time of Exam: 07/13/2025 11:43 AM Reason For Exam: Weakness Comparison 11/04/2024. Mild cardiac enlargement with increased pulmonary vascularity. Chronic pulmonary changes along the RIGHT heart border. Hyperinflation. The mediastinum is normal in contour. Fusion hardware in the C-spine. Degenerative changes of the thoracic spine and both shoulders. XR/XR chest 1V portable [id number] IMPRESSION: 1. Mild cardiac enlargement with increased pulmonary vascularity. 2. Chronic RIGHT basal changes. No acute infiltrates noted.
--- NOTE | 2025-07-13 11:29 | CT_ITS ---
WS: [id number] CT HEAD NONCONTRAST HISTORY: possible stroke, slurred speech and dizziness. TECHNIQUE: Contiguous axial imaging performed through the brain. Bone and soft tissue windows. Sagittal and coronal reformats reviewed. All CT scans at [facility] use at least one of these dose optimization techniques: automated exposure control; mA and/or kV adjustment per patient size (includes targeted exams where dose is matched to clinical indication); or iterative reconstruction. DLP: 1113.08 mGy COMPARISON: 11/04/2024 No acute intracranial hemorrhage, midline shift or mass effect. Mild atrophy and advanced small vessel ischemic changes throughout the white matter. Confluent areas of decreased signal within the white matter. Small benign calcifications in the basal ganglia. Mild cerebellar atrophy. Ventricles: Normal size with no hydrocephalus. Paranasal sinuses: As visualized are clear. Mastoid air cells: Well pneumatized. Calvarium and scalp: Skull is intact with no soft tissue edema or swelling. CT/CT head thrombolytic [id number] IMPRESSION: 1. No acute intracranial hemorrhage or edema. 2. Mild cerebral and cerebellar atrophy. 3. Advanced small vessel changes. Similar to the prior study of 11/04/2024.
--- NOTE | 2025-07-13 11:31 | W.ED.NEUROSD ---
HPI - Neuro Symptoms/Deficit General: Chief Complaint: Neuro Symptoms/Deficit Stated Complaint: stroke like symptoms Time Seen by Provider: 07/13/25 11:23 History of Present Illness: 80-year-old female with a history of anemia, DVT, IVC filter, chronic anticoagulation on Eliquis, pulmonary embolus, chronic hypoxemia on 2 L nasal cannula at all times, COPD, hypertension, hyperlipidemia, CHF, GERD, and dementia who presents to the emergency room with weakness, lightheadedness, gait instability and falls. She also feels like her speech has been slurred. This has been going on for about 5 days now. She does feel somewhat short of breath. She has got some wheeze on exam. No known fevers. She is not altered at this time. Related Data Home Medications ?Medication ?Instructions ?Recorded ?Confirmed ferrous sulfate 324 mg (65 mg 324 mg PO DAILY 09/09/19 06/23/25 iron) tablet,delayed release magnesium oxide 500 mg capsule 500 mg PO DAILY 12/10/19 06/23/25 mecobalamin (vitamin B12) 1,000 1,000 mcg PO DAILY 12/10/19 06/23/25 mcg chewable tablet fluticasone propionate 50 1 spray intranasal BID 01/26/22 06/23/25 mcg/actuation nasal spray,suspension donepezil 10 mg tablet 1 tab PO DAILY 06/19/22 06/23/25 pantoprazole 40 mg tablet,delayed 40 tab PO DAILY 06/19/22 06/23/25 release rosuvastatin 10 mg tablet 1 tab PO QPM 06/19/22 06/23/25 bumetanide 1 mg tablet 1 mg PO DAILY 07/30/22 06/23/25 cholecalciferol (vitamin D3) 25 25 mcg PO DAILY 07/30/22 06/23/25 mcg (1,000 unit) capsule diphenhydramine HCl 25 mg tablet 25 mg PO TID PRN Allergic Symptoms 07/30/22 06/23/25 (Benadryl Allergy) gabapentin 600 mg tablet 600 mg PO BID 11/04/24 06/23/25 albuterol sulfate 90 mcg/actuation inhalation 05/05/25 06/23/25 aerosol inhaler citalopram 20 mg tablet mg PO 05/05/25 06/23/25 hydrocodone 5 mg-acetaminophen 325 tab PO 05/05/25 06/23/25 mg tablet mometasone 0.1 % topical solution topical 05/05/25 06/23/25 tizanidine 4 mg tablet mg PO 05/05/25 06/23/25 triamcinolone acetonide 0.1 % 1 applic topical BID 07/13/25 07/13/25 topical cream Previous Rx's ?Medication ?Instructions ?Recorded Power step arch support #2 ea 05/04/21 nitroglycerin 0.4 mg sublingual 0.4 mg sublingual Q5M PRN Chest 05/22/22 tablet Pain #25 tabs potassium chloride 20 mEq 20 meq PO BID #180 tabs 05/22/22 tablet,extended release(part/cryst) (Klor-Con M) ascorbic acid (vitamin C) 500 mg 500 mg PO DAILY #90 caps 09/25/22 capsule apixaban 2.5 mg tablet (Eliquis) 2.5 mg PO BID 30 days #60 tabs 04/29/23 [place] Brace #1 ea 05/13/23 hinged knee brace #1 ea 09/10/23 Supinator to right #1 ea 03/18/24 celecoxib 100 mg capsule (Celebrex) 100 mg PO DAILY #30 caps 01/13/25 tramadol 50 mg tablet 50 mg PO Q8H PRN pain #10 tabs 04/06/25 Allergies Allergy/AdvReac Type Severity Reaction Status Date / Time No Known Allergies Allergy Verified 06/23/25 08:13 Review of Systems Narrative: Constitutional symptoms: Negative except as documented in HPI. Skin symptoms: Negative except as documented in HPI. Eye symptoms: Negative except as documented in HPI. ENMT symptoms: Negative except as documented in HPI. Respiratory symptoms: Negative except as documented in HPI. Cardiovascular symptoms: Negative except as documented in HPI. Gastrointestinal symptoms: Negative except as documented in HPI. Genitourinary symptoms: Negative except as documented in HPI. Musculoskeletal symptoms: Negative except as documented in HPI. Neurologic symptoms: Negative except as documented in HPI. Psychiatric symptoms: Negative except as documented in HPI. Endocrine symptoms: Negative except as documented in HPI. PFSH ED PFSH: Medical History Osteopenia Anemia Greater trochanteric bursitis of left hip Osteoarthritis of left hip History of nonmelanoma skin cancer alf (current) use of aromatase inhibitors Presence of IVC filter DVT (deep venous thrombosis) Bradycardia Patient states her heart rate runs in 40s to 50s at home Chronic kidney disease Hematoma Small complex fluid lesion adjacent to superficial thrombophlebitis in the left calf, 26 x 10 x 24 mm, Superficial thrombophlebitis Pulmonary emboli Obstructive sleep apnea Chronic respiratory failure with hypoxia and hypercapnia Varicose veins of left leg with edema COPD (chronic obstructive pulmonary disease) Tachycardia HTN (hypertension) Hyperlipidemia GERD (gastroesophageal reflux disease) CHF (congestive heart failure) Acute depression IBS (irritable bowel syndrome) Alzheimer disease Seasonal allergic rhinitis Rheumatoid arthritis B12 deficiency Muscle spasm Breast cancer Surgical History Status post hardware removal Date of procedure: January 12, 2025 Pre-op diagnosis: Retained painful hardware following left periprosthetic distal femur fracture with supracondylar and intercondylar components as well as distal femoral shaft fracture Post-op diagnosis: Left femur retained painful hardware following left periprosthetic distal femur fracture with supracondylar and intercondylar components as well as distal femoral shaft fracture Procedure done: Left femoral shaft and distal femur hardware removal with removal of bone from over the plate. 12 screws and 1 extra long femoral plate. Implants: Removal of 12 screws and 1 extra long femoral plate Specimens removed/disposition: Plate and screws Surgeon: Blessing Joyner MD History of total left knee replacement S/P ORIF (open reduction internal fixation) fracture (04/25/23) ORIF of left periprosthetic distal femur fracture S/P IVC filter History of back surgery H/O neck surgery H/O shoulder surgery H/O wrist surgery History of ear surgery History of lumpectomy of right breast (02/26/19) Right breast lumpectomy with axillary sentinel lymph node biopsy History of hysterectomy History of cholecystectomy Family History Father CAD (coronary artery disease) Cancer Mother CAD (coronary artery disease) Brother CAD (coronary artery disease) Sister Cancer Other Diabetes Hyperlipidemia Hypertension Lung disease Psychiatric illness Social History Smoking and tobacco/nicotine status: former use of tobacco/nicotine Quit status (tobacco/nicotine): has quit using Year quit tobacco: 1995 1PPD x 40 Years Alcohol intake: never Substance/Drug Use: never Lives independently: Yes Household members: spouse Marital status: Current occupational status: retired Do you think of yourself as: Straight/Heterosexual Current gender identity: Female Physical Exam Narrative: EXAM NARRATIVE: General: Alert, no acute distress. Skin: Warm, dry. Head: Normocephalic, atraumatic. Neck: Supple, trachea midline. Eye: Extraocular movements are intact. Ears, nose, mouth and throat: Tacky oral mucosa Cardiovascular: Regular, Normal peripheral perfusion. Respiratory: coarse, scattered wheeze, mild increased wob. tachypnea, breath sounds are equal, Symmetrical chest wall expansion. Gastrointestinal: Soft, Nontender, Non distended Musculoskeletal: Normal ROM, no deformity. Neurological: Alert and oriented, No focal neurological deficit observed. Patient does not have any overt slurred speech. No altered mental status. She gives a good history. No facial droop. Psychiatric: Cooperative, appropriate mood & affect. Course Vital Signs: Vital signs: Vital Signs Temperature 98.2 F 07/13/25 11:25 Pulse Rate 61 07/13/25 12:55 Respiratory Rate 17 07/13/25 12:55 Blood Pressure 119/40 07/13/25 12:28 Pulse Oximetry 96 07/13/25 12:55 Oxygen Delivery Me thod Room Air 07/13/25 12:28 Oxygen Flow Rate 3 07/13/25 11:28 MDM - Neuro Symptoms/Deficit Medical Decision Making Medical decision making: Patient's reason for coming to the emergency room: Dizziness, lightheadedness, falls, shortness of breath, slurred speech Social determinants: Patient is retired. Her was present. I reviewed the patient's medical record. 80-year-old female with a history of anemia, DVT, IVC filter, chronic anticoagulation on Eliquis, pulmonary embolus, chronic hypoxemia on 2 L nasal cannula at all times, COPD, hypertension, hyperlipidemia, CHF, GERD, and dementia I reviewed the patient's current home meds Patient is on donezepil for dementia. Also chronically anticoagulated on Eliquis. Alternate historians: EMS. . Differential diagnosis for patient presenting with generalized weakness including but not limited to and based on the above HPI, review of systems and physical exam: Sepsis. Dehydration. Renal failure. Electrolyte abnormalities. Anemia. Congestive heart failure. Hypotension. Coronary syndrome. Hepatitis. Cirrhosis. Infections such as pneumonia, urinary tract infection, [place] illness, Cellulitis, Viral infections including influenza and Covid-19. Workup: labwork and lab/exam driven imaging ordered to evaluate, rule in and rule out above pathologies. Differential diagnosis including but not limited to and based on the above HPI, review of systems and physical exam: patient with fall and head injury. Subdural hematoma, subarachnoid hemorrhage, concussion, skull fracture. Orders placed to evaluate differential diagnosis based on the above differential, HPI and physical exam CT scan of the head was ordered. EKG: Time 11:46 AM. Rate 70. Normal sinus rhythm, no ectopy, possibly an AV block, This was reviewed and interpreted by myself the ER physician at 11:50 AM. There is extensive interference. Possibly some ST depression but I do not see anything acute. CT head: Senescent changes no acute intracranial process. No intracranial hemorrhage, no evidence of infarct. No evidence of acute fracture. This was reviewed and interpreted by myself the emergency room physician. I also reviewed the radiology report. Chest x-ray: Mild cardiac enlargement with increased pulmonary vascularity. Chronic right basal changes. No acute infiltrates. This was reviewed and interpreted by myself the emergency room physician. I also reviewed the radiology report. Lab Review: Laboratory results were reviewed and interpreted by myself the emergency room physician. No leukocytosis. Stable anemia. Mild elevation in her BUN with a normal creatinine. Urinalysis negative for infection. Flu COVID and RSV are negative blood gas did show some CO2 retention with a decrease in her pH indicating some acute hypercapnic respiratory failure for which she was placed on BiPAP Assessment of risk: Level of risk: Patient is a high risk patient. Multiple comorbidities. Blood thinners. Elderly. Hospitalization considerations: Patient is being admitted. Reexamination: Patient appears somewhat stable on the BiPAP and is tolerating. O2 sats at 100 now on the BiPAP. She had dropped down into the upper 80s earlier. No focal motor deficits. Consultation: I spoke with Dr. Rivera who is on-call for the hospital service who agrees to admission. Assessment and plan: Hypercapnic respiratory failure Acute on chronic hypoxemic respiratory failure COPD exacerbation Dizziness ?No leukocytosis and no lactic acidosis so I do not believe she is septic. I did give her a small amount of fluids along with some doxycycline, Solu-Medrol and an updraft and placed on BiPAP. -I discussed the patient with the hospitalist on-call who is admitting the patient. - Discussed findings and plan with patient. Answered any questions. - All laboratory values were reviewed and interpreted personally by myself, the ER physician - All imaging was reviewed and interpreted personally by myself, the ER physician. - Evaluation and treatment of this problem were appropriate in the emergency setting Critical Care: -I spent a total of 38 minutes of critical care time managing the patient, independent of any other practitioner. -The time involved in the performance of separately reportable procedures was not counted towards critical care time. Lab Data 07/13/25 11:27 07/13/25 11: Radiology Impressions Chest X-Ray 07/13/25 11: IMPRESSION: 1. Mild cardiac enlargement with increased pulmonary vascularity. 2. Chronic RIGHT basal changes. No acute infiltrates noted. Head CT 07/13/25 11: IMPRESSION: 1. No acute intracranial hemorrhage or edema. 2. Mild cerebral and cerebellar atrophy. 3. Advanced small vessel changes. Similar to the prior study of 11/04/2024. Laboratory Results WBC 5.07 10^3/uL (3.29-11.43) 07/13/25 11: RBC 3.37 10^6/uL (3.85-5.65) L 07/13/25 11:27 Hgb 8.40 g/dL (11.27-16.99) L 07/13/25 11:27 Hct 30.8 % (36-47) L 07/13/25 11:27 MCV 91.4 fl (85-98) 07/13/25 11:27 MCH 24.9 pg (27-33) L 07/13/25 11:27 MCHC 27.3 g/dL (30-55) L 07/13/25 11:27 RDW 20.2 % (12.1-15.1) H 07/13/25 11:27 Plt Count 269 10^3/cmm (157-399) 07/13/25 11:27 MPV 8.4 fL (7.4-10.4) 07/13/25 11:27 Neut % (Auto) 70.6 % 07/13/25 11:27 Lymph % (Auto) 10.1 % 07/13/25 11:27 [place] % (Auto) 14.2 % 07/13/25 11: Eos % (Auto) 3.7 % 07/13/25 11: Baso % (Auto) 0.8 % 07/13/25 11: Neut # (Auto) 3.58 10^3/uL (1.8-7.7) 07/13/25 11: Lymph # (Auto) 0.5 10^3/uL (0.8-4.8) L 07/13/25 11:27 [place] # (Auto) 0.7 10^3/uL (0.2-0.9) 07/13/25 11: Eos # (Auto) 0.2 10^3/uL (0.0-0.8) 07/13/25 11: Baso # (Auto) 0.0 10^3/uL (0.0-0.1) 07/13/25 11: Nucleated RBC % (auto) 1.0 % 07/13/25 11: Nucleated RBCs # 0.1 /100WBC 07/13/25 11: PT 14.30 SECONDS (12.1-14.9) 07/13/25 11: INR 1.04 (0.8-1.2) 07/13/25 11: APTT 30.9 SECONDS (23.9-36.7) 07/13/25 11:27 Specimen Type Arterial 07/13/25 13:55 Sample Site Brachial, right 07/13/25 13:55 ABG pH 7.30 (7.35-7.45) L 07/13/25 13:55 ABG pCO2 65.2 mmHg (35-45) H* 07/13/25 13:55 ABG pO2 70.5 mmHg (80.0-100.0) L 07/13/25 13:55 ABG PO2/FiO2 Ratio 235 07/13/25 13:55 ABG HCO3 31.8 mmol/L (22-26) H 07/13/25 13:55 ABG O2 Saturation 93.8 07/13/25 13:55 ABG Base Excess 4.3 mmol/L (-2.0-2.0) H 07/13/25 13:55 Anthony Test Pos 07/13/25 13:55 A-a O2 Gradient 8.4 mmHg (5-10) 07/13/25 13:55 Hematocrit 26.1 % (37-47) L 07/13/25 13:55 Hgb O2 Saturation 91.3 % (95-100) L 07/13/25 13:55 Carboxyhemoglobin 2.4 %THgb (0.4-20.1) 07/13/25 13:55 Methemoglobin 0.3 % (0.4-1.5) L 07/13/25 13:55 Total Hemoglobin 8.5 g/dL (12-16) L 07/13/25 13:55 Sodium 140.0 mmol/L (131-143) 07/13/25 13:55 Potassium 4.2 mmol/L (3.5-5.0) 07/13/25 13:55 Glucose 108.0 mg/dL (70-115) 07/13/25 13:55 Ionized Calcium 1.2 mmol/L (1.1-1.4) 07/13/25 13:55 O2 Delivery Device Bipap 07/13/25 13:55 O2 Liters/Min 3.0 % 07/13/25 12:04 FiO2 30.0 % 07/13/25 13:55 Motorcyles Final Inspector ID Monro 07/13/25 13:55 Sodium 141 mmol/L (136-145) 07/13/25 11:27 Potassium 4.7 mmol/L (3.5-5.1) 07/13/25 11:27 Chloride 100 mmol/L (98-107) 07/13/25 11:27 Carbon Dioxide 32 mmol/L (22-29) H 07/13/25 11:27 Anion Gap 13.7 (5-19) 07/13/25 11:27 BUN 27 mg/dL (8-23) H 07/13/25 11:27 Creatinine 0.9 mg/dL (0.5-0.9) 07/13/25 11:27 GFR Calculation Not Reportable 07/13/25 11:27 Glucose 117 mg/dL (65-115) H 07/13/25 11:27 POC Glucose 124 mg/dL (70-110) H 07/13/25 11:28 Calculated Osmolality 298 mOsm/kg (285-295) H 07/13/25 11:27 Lactic Acid 1.7 mmol/L (0.5-2.2) 07/13/25 11:27 Calcium 8.6 mg/dL (8.5-10.5) 07/13/25 11:27 Total Bilirubin 0.4 mg/dL (0.15-1.2) 07/13/25 11:27 AST 20 U/L (0-32) 07/13/25 11:27 ALT 10 U/L (0-33) 07/13/25 11: Alkaline Phosphatase 112 U/L (35-105) H 07/13/25 11:27 Total Protein 5.9 g/dL (6.6-8.7) L 07/13/25 11: Albumin 4.0 g/dL (3.5-5.2) 07/13/25 11: Globulin 1.9 g/dL (1.3-4.6) 07/13/25 11:27 Urine Color Yellow (Yellow) 07/13/25 11:35 Urine Appearance Clear (CLEAR) 07/13/25 11:35 Urine pH 5.0 (5-7) 07/13/25 11:35 Ur Specific [place] 1.011 (1.005-1.030) 07/13/25 11:35 Urine Protein Negative (Negative) 07/13/25 11:35 Urine Glucose (UA) Negative (Normal) 07/13/25 11:35 Urine Ketones Negative (Negative) 07/13/25 11:35 Urine Blood 1+ (Negative) A 07/13/25 11:35 Urine Nitrate Negative (Negative) 07/13/25 11:35 Urine Bilirubin Negative (Negative) 07/13/25 11:35 Urine Urobilinogen 0.2 mg/dL (Negative) 07/13/25 11:35 Ur Leukocyte Esterase Trace (Negative) A 07/13/25 11:35 Urine RBC 3-5 /hpf (0-2) 07/13/25 11:35 Urine WBC 0-5 /hpf (0-5) 07/13/25 11:35 Ur Squamous Epith Cells 0-5 /hpf (0-5) 07/13/25 11:35 Amorphous Sediment Not Reportable 07/13/25 11:35 Urine Bacteria None seen /hpf (NONE) 07/13/25 11:35 Hyaline Casts 7.01 /lpf 07/13/25 11:35 Influenza A (PCR) Negative (Negative) 07/13/25 11:50 Influenza Type B (PCR) Negative (Negative) 07/13/25 11:50 RSV (PCR) Negative (Negative) 07/13/25 11:50 SARS-CoV-2 (PCR) Negative (Negative) 07/13/25 11:50 All radiology interpretation(s) finalized by discharge Discharge Plan Discharge Admit Provider: Junior Rivera Condition: Stable Coding Level of Care Code ED Aligner for Mikalg Carlos Enrique
--- OUTSIDE RECORDS SUMMARY | 2025-07-13 11:36 | XMS_ITS | Patient Health Record ---
Author Organization [facility] Address [address] [place] [address] Care Team Providers Care Unit Assembler Name Role Phone Juan Kathleen Primary Care Provider Reason For Referral No Information Problems No Known Problems Plan Of Treatment No Information Insurance Providers Payer Name Payer Address Payer Phone Subscriber Number Group Number Insured Name Patient Relationship to Insured Coverage Start Date Coverage End Date National Med Test [address] [facility] JANICE OLVERA [id number] [phone] [id number] Maddison Marcos Self - patient is the insured 6
--- OUTSIDE RECORDS SUMMARY | 2025-07-13 11:36 | XMS_ITS | Clinical Summary ---
Author Organization [facility] Address [address] [facility] Attn: Epic Prelude ADT JUAN STEWARD [address] Care Team Providers Care Cryptologist Name Role Phone Unavailable Primary Care Provider [...] CALCIUM ORAL Take by mouth. 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 11/19/2024 Other dysphagia 11/19/2024 COPD (chronic obstructive pulmonary disease) Iron deficiency anemia 11/19/2024 Diverticulosis 11/19/2024 Internal hemorrhoid 11/19/2024 Encounters Date Type Department Care Team Description 05/18/2025 External Device Data ST[facility] ABSTRACTION Provider, Abstract 04/21/2025 Abstract [facility] Neuro[facility] [address] [place] [address] Placido West FNP from Last 3 Months Family History Medical History Relation Name Comments Colon Cancer Neg Hx Social History Tobacco Use Types Packs/Day Years Used Date Smoking Tobacco: Former Cigarettes Tobacco Cessation:Counseling Given: Not Answered Alcohol Use Standard Drinks/Week Comments Not Currently 0 (1 standard drink = 0.6 oz pur e alcohol) Feeling Safe Answer Date Recorded Are you in a relationship wi th someone who hurts you emotionally and/or physically? 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 Gender Identity Not on file Sexual Orientation Not on file Last Filed Vital Signs Vital Sign Reading Time Taken Comments Blood Pressure 143/50 11/19/2024 9:47 AM CDT Pulse 75 11/19/2024 9:47 AM CDT Temperature - - Respiratory Rate 18 11/19/2024 9:47 AM CDT Oxygen Saturation 100% 11/19/2024 9:47 AM CDT Inhaled Oxygen Concentration - - Weight 65.8 kg (145 lb) 09/03/2024 9:56 AM MERCHANDISE COORDINATOR Height 157.5 cm (5' 2 ) 09/03/2024 9:56 AM MERCHANDISE COORDINATOR Body Mass Index 26.52 09/03/2024 9:56 AM MERCHANDISE COORDINATOR Plan of Treatment Health Maintenance Due Date Last Done Comments OSTEOPOROSIS SCREENING 2010 RSV VACCINE (60+ or ) (1 - 1-dose 75+ series) 2020 ZOSTER VACCINE (3 of 3) 11/18/2024 09/23/2024, 09/02 INFLUENZA VACCINE (#1) 2025 , 01/01/2022, 01/01/2022, Additional history exists COVID-19 Vaccine (5 - 2024-2 6 season) 2025 03/13/2022, 06/20/2021, 10/28/2020, Additional history exists DTAP/TDAP/TD VACCINES (2 - [...] Vernon DO - 11/19/2024 9:34 AM CDT [facility] GI Patient Name: Maddison Jenkins Procedure Date: [...] This is a 79 year old female. [address] [place] [address] Brandon Vernon DO GI PROCEDURE ORDERABLES Final Result from Last 3 Months or Most Recently Relevant to Health Maintenance Insurance [facility] Address: [address] [address] Advance Directives For more information, please contact: [phone] * Full Code (Latest Code Status on File) Date Activated Date Inactivated Comments 11/19/2024 7:49 AM 11/19/2024 12:09 PM * Full Code Date Activated Date Inactivated Comments 11/19/2024 7:49 AM 11/19/2024 7:49 AM
--- OUTSIDE RECORDS SUMMARY | 2025-07-13 11:36 | XMS_ITS | Patient Health Record ---
Author Organization [facility] Address [address] [place] [address] Care Team Providers Care Biomedical Equipment Support Specialist Name Role Phone Zhang Gamboa Primary Care Provider UnavailAme Martinez Unavailable [phone] Arabella Collins Unavailable Unavailable Johann Whitley Unavailable [phone] Allergies Allergen (clinical drug ingredient) Drug/Non Drug Allergy documented on EMR Reaction Allergy Type Onset Date Status NKDA : NO KNOWN DRUG ALLERGIES Unknown Drug Allergy Active Reason For Referral Reason eval and treat Diagnosis 1 Low back pain, unspe cified (M54.50) Referring Provider First Name hZang Referring Provider Last Name Cooper Referring Provider Speciality Family Med icine Referred Organization [facility] Referred Provider Juvenal Shane Referred Address [address] [place] [id number], Referred Provider Specialty Pain Medicin e General Notes Katherine Johnson 09:48:58 AM CDT > atc pt, no answer Clinical Notes Azucena Wilkinson 04/26 01:04:13 PM CDT > mailing nppw Referral Priority Routine Medications Medication SIG (Take, Route, Frequency, Duration) [...] Date Status Comme nts Influenza (whole), CPT 63432 Inactive Unknown 08/13/2016 Administered Social History Tobacco [...] deficiency anemia due to chronic blood loss (399800375) Iron deficiency anemia due to chronic blood loss (D50.0) Active confirmed Problem 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) (2397625736216949 2) 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) Active confirmed [id number] m ed Description:Mati nary arteriosclerosis Problem Dilated cardiomyopathy (184231576) Dilated cardiomyopathy (I42.0) Active confirmed [id number] m ed Description:Donte estive obstructive cardiomyopathy Problem Chronic obstructive pulmonary disease (04965967) Chronic obstructive pulmonary disease, unspecified (J44.9) Active confirmed [id number] m ed Description: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 Problem Bradycardia (21901703) Bradycardia, unspecified (R00.1) Active confirmed [id number] m ed Description:Graham ycardia Problem Essential hypertension (23563540) Essential primary hypertension (I10) Active confirmed [id number] m ed Description:Esse ntial hypertension Plan Of Treatment Pending Test Test Name Order Date CBC w\ Auto Diff 77630 10/19/2021 Erythropoietin 48271 10/19/2021 Ferritin 33862 10/19/2021 Iron Binding Capacity Total 32088 2021 Iron Level 80121 10/19/2021 Capsule Endoscopy 10/19/2021 Insurance Providers Payer Name Payer Address Payer Phone Subscriber Number Group Number Insured Name Patient Relationship to Insured Coverage Start Date Coverage End Date [employer] Medicare Replacement [address] [address] [place] [address] [id number] Maddison Marcos Self - patient is the insured Medical (General) History Medical History History ICD [...]
--- OUTSIDE RECORDS SUMMARY | 2025-07-13 11:36 | XMS_ITS | Data Portability ---
Author Organization [facility] Address [address] [address] Care Team Providers Care Machine Preservative Filler Name Role Phone MILENA GAMBOA Primary Care Provider Unavailabl e Assessment Encounter Date Assessment Date Assessment LastModified by Organization Details LastModified Time 06/30/2025 06/30/2025 Patient presente d to office today for their Medicare Annual Wellness Visit. Education was provided on healthy nutrition, including a diet rich in fruits and vegetables, minimizing simple carbohydrates, salt, and saturated fats. Encouraged regular cardiovascular exercise such as walking at least 30 minutes daily, 5 times per week. Emphasized preventive health measures and educated pt on fall prevention and community-based lifestyle interventions to help reduce health risks and promote healthy living. [email or web address] Not available 06/30/2025 09:29:17 Plan of Treatment Reminders Order Date Submit Date Provider Last Modified By Organization Details Last Modified Time Details Appointments RECHEC K 15 2024 10:45A Juvenal Gamboa MD Not available Not available Not available OFFICE VISIT 15 2024 09:45A Juvenal Gamboa MD Not available Not available Not available Lab ferrit in, serum or plasma 2024 025 [employer] [facility], [address] [facility], [place], [address], 03/30/2025 05:26:40 CBC 2024 025 [facility], [address], [facility] 1, [place], [address], 03/29/2025 15:45:50 CMP, serum or plasma 2024 025 [facility], [address], [place], [address], 03/29/2025 16:56:05 magnes ium, serum or plasma 2024 025 [email or web address], [address] [facility], [place], [address], 03/30/2025 05:26:38 phosph orus, blood 2024 025 [email or web address] [facility], [address] [facility], [place], [address], 04/12/2025 11:12:50 urinal ysis, dipsti ck 2024 025 [facility] ([facility]), [address] [place], [address], 03/10/2025 08:31:41 cultur e, urine 2024 025 [employer] [facility], [address] [facility] [address], [address] [place], [address], 03/13/2025 02:36:18 Referral neurol ogical surgeo n referr al [address] Neurosurgery, [address], Mario Alberto A, [place], [address], 07/12/2025 14:32:10 orthop edic surgeo n referr al 2024 025 [place] [address] Blessing Joyner MD, [address] [place], [address], 07/12/2025 14:28:45 Procedures None record ed. Surgeries None record ed. Imaging XR, lumbar spine [address] ([facility]), [address] [place], [address], 06/30/2025 13:57:43 XR, cervic al spine 2024 [facility] ([facility]), [address] [place], [address], 06/30/2025 12:02:52 XR, should er 2024 [facility] ([facility]), [address] [place], [address], 06/30/2025 12:03:00 bone densit y [email or web address] [place] [address], [address] [place] [address], [address], 06/30/2025 11:13:29 Medication Orders potass ium chlori de ER 20 mEq tablet ,exten ded releas e(part /cryst ) 2024 [facility], [address] [place] [address], [address], 07/01/2025 09:38:25 tramad ol 50 mg tablet 2024 025 [facility], [address] [place] [address], [address], 04/10/2025 13:02:25 tizani dine 4 mg tablet 2024 025 [facility], [address] [place] [address], [address], 03/29/2025 15:43:41 amoxic illin 875 mg-pot assium clavul anate 125 mg tablet 2024 025 [facility], [address] [place] [address], [address], 03/24/2025 05:01:49 Patient TargetsNo targets recorded. Patient Instructions Encounter Date Encounter Id Patient Instructions Last Modified By Organization Details Last Modified Time 06/30/2025 [id number] advance care planning: care instructions [email or web address] Not available 06/30/2025 11:07:42 nutrition for older adults: care instructions [email or web address] Not available 06/30/2025 11:07:42 preventing falls: care instructions [email or web address] Not available 06/30/2025 11:07:42 Learning About Being Physically Active [email or web address] Not available 06/30/2025 11:07:42 Discussed and explained advance directives such as standard forms to the . Face to face discussion lasted for a duration of ___ minutes. [email or web address] Not available 06/30/2025 09:29:17 Reason for Referral Orthopedic Surgeon Referral for Chronic pain of right upper limb Referring Physician: Milena Gamboa [facility], Encounter Date: 06/30/2025 Neurological Surgeon Referra l for Chronic neck pain Referring Physician: Milena Gamboa [facility], Encounter Date: 06/30/2025 Results Created Date Observation Date Name Description Value Unit Range Abnormal Flag Note LastModifiedBy Organization Detail LastModifiedTime 03/10/20 25 03/13/2025 CULTU RE, URINE , ROUTI NE culture, urine, routine SEE NOTE abnormal CULTU RE, URINE , ROUTI NE Micro Numbe r: [id number] Test Statu s: Final Speci men Sourc e: Urine Speci men Quali ty: Adequ ate Resul t: Great er than 100,0 00 CFU/m L of Esche jessica a coli 50,00 0-100 ,000 CFU/m L of Klebs iella pneum oniae E.col i K.pne umoni ae ----- ----- ----- - ----- ----- ----- - INT JENNIFER INT JENNIFER AMOX/ CLAVU LANAT E S <=2 S 8 AMP/S ULBAC ENCINAS S <=2 R >=32 CEFAZ KAT NR <=4 2 R 16 CEFEP AJAY S <=0.1 2 S <=0.1 2 CEFTA ZIDIM E S <=1 S <=1 CEFTR IAXON E S <=0.2 5 S <=0.2 5 CIPRO FLOXA INDIRA S <=0.0 6 S <=0.0 6 GENTA MICIN S <=1 S <=1 IMIPE NEM S <=0.2 5 S <=0.2 5 LEVOF LOXAC IN S <=0.1 2 S <=0.1 2 MEROP ENEM S <=0.2 5 S <=0.2 5 NITRO FURAN TOIN S 32 I 64 PIP/T AZOBA CTAM S <=4 R 32 TRIME THOPR IM/CHAVARRIA LFA S <=20 R >=320 S = Susce ptibl e I = Inter media te R = Resis tant NS = Not susce ptibl e SDD = Susce ptibl e Dose Depen dent * = Not Teste d NR = Not Repor reji NN = See Thera py Comme nts THERA PY COMME NTS Note 1: For infec tions other than uncom plica reji UTI cause d by E. coli, K. pneum oniae or P. mirab ilis: Cefaz kat is resis tant if JENNIFER > or = 8 mcg/m L. (Dist ingui shing susce ptibl e versu s inter media te for isola justine with JENNIFER < or = 4 mcg/m L requi res addit ional testi ng.) Note 2: For uncom plica reji UTI cause d by E. coli, K. pneum oniae or P. mirab ilis: Cefaz kat is susce ptibl e if JENNIFER <32 mcg/m L and predi cts susce ptibl e to the oral agent s cefac mdaison, cefdi dione, cefpo doxim e, cefpr ozil, cefur oxime , cepha lexin and lorac arbef . Not Available [employer] [facility] [address] [place] [address], [address], 03/13/2025 02:36:15 03/10/20 25 03/10/2025 urina lysis , dipst ick Leukocytes Large Not Available [facility] [address] [place], [address], 03/10/2025 08:15:30 03/10/20 25 03/10/2025 urina lysis , dipst ick Nitrite positi ve Not Available [facility] ([facility]) [address] [place], [address], 03/10/2025 08:15:30 03/10/20 25 03/10/2025 urina lysis , dipst ick Urobilinogen 1 Not Available [facility] ([facility]) [address] [place], [address], 03/10/2025 08:15:30 03/10/20 25 03/10/2025 urina lysis , dipst ick Protein 300 Not Available [facility] ([facility]) [address] [place], [address], 03/10/2025 08:15:30 03/10/20 25 03/10/2025 urina lysis , dipst ick pH 8.5 Not Available [facility] ([facility]) [address] [place], [address], 03/10/2025 08:15:30 03/10/20 25 03/10/2025 urina lysis , dipst ick Blood Large Not Available [facility] ([facility]) [address] [place], [address], 03/10/2025 08:15:30 03/10/20 25 03/10/2025 urina lysis , dipst ick Specific [place] 1.020 Not Available [facility] ( [facility]) [address] [place], [address], 03/10/2025 08:15:30 03/10/20 25 03/10/2025 urina lysis , dipst ick Ketone Trace Not Available [facility] ([facility]) [address] [place], [address], 03/10/2025 08:15:30 03/10/20 25 03/10/2025 urina lysis , dipst ick Bilirubin Small Not Available [facility] ([facility]) [address] [place], [address], 03/10/2025 08:15:30 03/10/20 25 03/10/2025 urina lysis , dipst ick Glucose Negati ve Not Available [facility] ([facility]) [address] [place], [address], 03/10/2025 08:15:30 03/10/20 25 03/10/2025 urina lysis , dipst ick Appearance Slight ly Cloudy Not Available [facility] ([facility]) [address] [place], [address], 03/10/2025 08:15:30 03/10/20 25 03/10/2025 urina lysis , dipst ick Color Red Not Available [facility] ([facility]) [address] [place], [address], 03/10/2025 08:15:30 03/29/20 25 03/29/2025 CBC WBC 6.0 x10 4.0-10 .5 Not Available [facility] [address] [facility] 1, [place], [address], 03/29/2025 15:45:50 03/29/20 25 03/29/2025 CBC RBC 3.31 x10 3.50-5 .50 low Not Available [facility] [facility] 1, [place], [address], 03/29/2025 15:45:50 03/29/20 25 03/29/2025 CBC HGB 8.9 g/dL 12.0-1 6.0 low Not Available [facility] [address] [facility] 1, [place], [address], 03/29/2025 15:45:50 03/29/2003/29/2025 CBC HCT 30.6 % 37.0-4 7.0 low Not Available [facility] [address] [facility] 1, [place], [address], 03/29/2025 15:45:50 03/29/20 25 03/29/2025 CBC MCV 92.3 fL 80.0-9 9.9 Not Available [facility] [address] [facility] 1, [place], [address], 03/29/2025 15:45:50 03/29/20 25 03/29/2025 CBC MCH 26.9 pg 27.0-3 2.0 low Not Available [facility] [address] [facility] 1, [place], [address], 03/29/2025 15:45:50 03/29/20 25 03/29/2025 CBC MCHC 29.1 g/dL 32.0-3 6.0 low Not Available [facility] [address] [facility] 1, [place], [address], 03/29/2025 15:45:50 03/29/20 25 03/29/2025 CBC RDW 23.9 % 11.5-1 4.5 high Not Available [facility] [address] [facility] 1, [place], [address], 03/29/2025 15:45:50 03/29/2003/29/2025 CBC plt 251.0 x10 140.0- 451.0 Not Available [facility] [address] [facility] 1, [place], [address], 03/29/2025 15:45:50 03/29/20 25 03/29/2025 CBC lymphocytes % 12.1 % 20.0-5 0.0 low Not Available [facility] [address] [facility] 1, [place], [address], 03/29/2025 15:45:50 03/29/20 25 03/29/2025 CBC granulcytes % 71.2 % 30.0-7 0.0 high Not Available [facility] [address] [facility] 1, [place], [address], 03/29/2025 15:45:50 03/29/20 25 03/29/2025 CBC monocytes % 14.7 % 2.0-16 .0 Not Available [facility] [address] [facility] 1, [place], [address], 03/29/2025 15:45:50 03/29/20 25 03/29/2025 CBC granulcytes# 4.2 x10 Not Hilda ilable [facility] [address] [address], [place], [address], 03/29/2025 15:45:50 03/29/20 25 03/29/2025 CBC lymphocytes # 0.7 x10 Not Available [facility] [address] [address], [place], [address], 03/29/2025 15:45:50 03/29/20 25 03/29/2025 CBC monocytes # 0.9 x10 Not Avai lable [facility] [address] [address], [place], [address], 03/29/2025 15:45:50 03/29/20 25 03/29/2025 CMP (FEMA LE) glucose 86.0 mg/dL 60.0-9 9.0 Not Available [facility] [address] [address], [place], [address], 03/29/2025 16:56:05 03/29/2026 0303/29/2025 CMP (FEMA LE) BUN (blood urea nitrogen) 24.0 mg/dL 10.0-2 6.0 Not Available [facility] [facility], [place], [address], 03/29/2025 16:56:05 03/29/20 25 03/29/2025 CMP (FEMA LE) creatinine (serum) 0.8 mg/dL 0.4-1. 5 Not Available [facility] [address] [facility] 1, [place], [address], 03/29/2025 16:56:05 03/29/20 25 03/29/2025 CMP (FEMA LE) BUN/creatini ne ratio 30.00 ratio Not Available [facility] [address] [facility] 1, [place], [address], 03/29/2025 16:56:05 03/29/20 25 03/29/2025 CMP (FEMA LE) eGFR calculated 73.5 Not Available [facility] [address] [facility] 1, [place], [address], 03/29/2025 16:56:05 03/29/20 25 03/29/2025 CMP (FEMA LE) total protein 6.1 g/dL 6.0-8. 5 Not Available [facility] [address] [facility] 1, [place], [address], 03/29/2025 16:56:05 03/29/20 25 03/29/2025 CMP (FEMA LE) total bilirubin 0.8 mg/dL 0.2-1. 3 Not Available [facility] [address] [facility] 1, [place], [address], 03/29/2025 16:56:05 03/29/20 25 03/29/2025 CMP (FEMA LE) albumin 3.5 g/dL 3.5-5. 5 Not Available [facility] [address] [facility] 1, [place], [address], 03/29/2025 16:56:05 03/29/20 25 03/29/2025 CMP (FEMA LE) globulin 2.6 calc Not Available [facility] [address] [facility] 1, [place], [address], 03/29/2025 16:56:05 03/29/20 25 03/29/2025 CMP (FEMA LE) AST (SGOT) 45.0 U/L 0.0-46 .0 Not Available [facility] [address] [facility] 1, [place], [address], 03/29/2025 16:56:05 03/29/20 25 03/29/2025 CMP (FEMA LE) altv (SGPT) 13.0 U/L 13.0-6 9.0 normal Not Available [facility] [address] [facility] 1, [place], [address], 03/29/2025 16:56:05 03/29/20 25 03/29/2025 CMP (FEMA LE) A/G ratio 1.3 ratio Not Available [facility] [address] [facility], [place], [address], 03/29/2025 16:56:05 03/29/20 25 03/29/2025 CMP (FEMA LE) ALP phos 89.0 U/L 30.0-1 40.0 normal Not Available [facility] [address] [facility] 1, [place], [address], 03/29/2025 16:56:05 03/29/20 25 03/29/2025 CMP (FEMA LE) calcium 8.4 mg/dL 8.4-10 .5 Not Available [facility] [address] [facility] 1, [place], [address], 03/29/2025 16:56:05 03/29/20 25 03/29/2025 CMP (FEMA LE) sodium 138.0 mmol/ L 136.0- 145.0 Not Available [facility] [address] [facility] [place], [address], 03/29/2025 16:56:05 03/29/20 25 03/29/2025 CMP (FEMA LE) potassium 4.2 mmol/ L 3.5-5. 1 Not Available [facility] [address] [facility] 1, [place], [address], 03/29/2025 16:56:05 03/29/20 25 03/29/2025 CMP (FEMA LE) chloride 101.0 mmol/ L 98.0-1 10.0 normal Not Available [facility] [address] [facility] 1, [place], [address], 03/29/2025 16:56:05 03/29/20 25 03/29/2025 CMP (FEMA LE) C02 37.0 mmol/ L 22.0-3 1.0 high Not Available [facility] [address] [facility] 1, [place], [address], 03/29/2025 16:56:05 03/29/20 25 03/29/2025 CMP (FEMA LE) anion gap 0.0 calc Not Available [facility] [address] [facility] 1, [place], [address], 03/29/2025 16:56:05 03/29/20 25 03/29/2025 CMP (FEMA LE) osmolality 288.3 calc Not Available [facility] [address] [facility], [place], [address], 03/29/2025 16:56:05 03/29/20 25 03/30/2025 MAGNE SIUM magnesium 2.3 mg/dL 1.5-2. 5 normal Not Available [address] [address] [place], [address], 03/30/2025 05:26:38 03/29/2003/30/2025 PHOSP HATE ( PHOSP HORUS ) phosphate ( phosphorus) 2.7 mg/dL 2.1-4. 3 normal Not Available [address] [address] [place], [address], 03/30/2025 05:26:40 03/29/2003/30/2025 CORBY TIN ferritin 80 NG/mL 16-288 normal Not Available [address] [address] [place], [address], 03/30/2025 05:26:40 06/30/2007/02/2025 XR, shoul xuan No observ ation record ed. [facility] ([facility]) [address] [place] [address], [address], 07/02/2025 11:09:49 06/30/2007/02/2025 XR, cervi hernandez spine No observ ation record ed. [facility] ([facility]) [address] [place] [address], [address], 07/02/2025 13:01:56 Result Notes None recorded. Problems Name Problem SNOMED Code Status Onset Date Resolution Date Notes Provider Name and Address Organization Details Recorded Time [facility] 54680636 Active 2021 [facility]; 04/06/20 1:14PM by James Segovia, Office Visit; Promoted ; acuity set as *; BRENDAN BARTON PA-C [address] [place] [address], [address], [facility], Jeet 3 13:11:37 Chronic obstruct hardy pulmonar y disease 26836778 Active 2021 COPD; Dr Echavarria; 04/06/20 1:14PM by James Segovia, Office Visit; Promoted ; acuity set as *; BRENDAN BARTON PA-C [address] [place], [address], [facility] 3 13:11:28 Hypercho lesterol emia 97188256 Active 2021 Hypercho lesterol emia; 04/06/20 1:14PM by James Segovia, Office Visit; Promoted ; acuity set as *; BRENDAN BARTON PA-C [address] [place], [address], [facility] 3 13:11:57 Iron deficien cy anemia 82763590 Active 2021 Iron Deficien cy Anemia; d/t blood loss had camera endo 10/2021. dr wiggins; 04/06/20 1:14PM by James Segovia, Office Visit; Promoted ; acuity set as *; Milena Gamboa MD [address] [place], [address], [facility] 5 15:07:21 Coronary artery anomaly NOS Active 2021 Coronary Artery Disease; 04/06/20 1:14PM by James Segovia, Office Visit; Promoted ; acuity set as *; BRENDAN BARTON PA-C [address] [place], [address], [facility] 3 13:11:32 Atrial fibrilla tion 15316599 Active 2021 Atrial Fibrilla tion; Dr Masterson; 04/06/20 1:14PM by James Segovia, Office Visit; Promoted ; acuity set as *; BRENDAN BARTON PA-C [address] [place], [address], [facility] 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 22020374 Active 2022 BREAST CARCINOM A; Impressi on: dr gonzales; Recorded 10/23/19 12:03PM by Milena Gamboa MD, Office Visit; Promoted ; acuity set as *; BRENDAN BARTON PA-C [address] [place], [address], [facility], EmperatrizLNhiCNhi 3 13:12:06 History of deep vein thrombos is 443557457 Active 2022 BRENDAN BARTON PA-C [address] [place], [address], [facility], NikoCNhi 3 13:11:54 Neuropat hy 741812097 Active 2022 ALLEY coe [facility], EmperatrizLNhiCNhi 5 15:16:08 Upper gastroin testinal bleeding 52897111 Active 2022 BRENDAN BARTON PA-C [address] [place], [address], [facility], LNhiL.CNhi 3 13:12:10 Cyst of pancreas 70134517 Completed 202201/22/2025 [facility], LNhiL.CNhi 5 15:15:39 Poor short-te rm memory 402088002 Active 2022 [facility], L.L.CNhi 5 15:16:08 Closed supracon dylar fracture of femur 69217990 Completed 202201/22/2025 ALLEY coe [facility], LNhiL.CNhi 5 15:15:39 Chronic kidney disease 103994745 Completed 202201/22/2025 [facility] coe [facility] 5 15:15:39 Generali zed osteoart hritis 821777181 Active 2023 ALLEY coe, [facility] 5 15:16:08 Osteoart hritis 616047745 Active 2024 ALLEY coe, [facility] 5 15:16:08 Iron deficien cy anemia due to blood loss 611043455 Active 2024 JAMES coe, [facility] 5 15:13:54 Fatigue 81482610 Active 2024 JAMES coe [facility] 5 15:13:54 Dyspnea on exertion 08883691 Active 2024 JAMES [facility] 5 15:13:53 Chronic kidney disease stage 2 925137583 Active 2024 Milena Gamboa MD [address] [place] [address], [facility] 10:26:42 Vitamin D deficien cy 17389758 Active 2024 Milena Gamboa MD [address] [place] [address], [facility] 10:27:17 Cramp 07595975 Active 2024 Milena Gamboa MD [address] [place] [address], [facility] 14:58:14 Low back pain 486406973 Active 2024 Milena Gamboa MD [address] [place] [address], [facility] 15:07:48 Chronic neck pain 80722206224 07 Active 2024 Milena Gamboa MD [address] [place] [address], [address], [facility] 09:54:02 Chronic pain of right upper limb 87393747427 463623 Active 2024 Milena Gamboa MD [address] [place] [address], [address], [facility] 09:54:16 Chronic low back pain 655058059 Active 2024 Milena Gamboa MD [address] [place] [address], [address], [facility] 09:54:53 Problem Notes None recorded. Medical Equipment None Reported. Allergies No known drug allergies Medications Name Sig Start Date Stop Date Status Note LastModified by Organization Details LastModified Time vitamin c er capsule 500 mg TAKE 1 CAPSULE BY MOUTH EVERY DAY WITH IRON 05/28 completed Not Available Not Available Not Available furosemid e 40 mg tablet TAKE 1 TABLET BY MOUTH EVERY MORNING AND ONE-HALF in THE afternoo n 07/30 completed Not Available Not Available Not Available anastrozo le 1 mg tablet TAKE 1 TABLET BY MOUTH EVERY DAY active Not Available Not Available No t Available prednison e 10 mg tablet Take 1 tablet every day by oral route for 5 days. 02/28 completed Not Available Not Available Not Available gabapenti n 600 mg tablet Take 1 tablet twice a day by oral route for 90 days. active Not Available Not Available No t Available ipratropi um 0.5 mg-albute rol 3 mg (2.5 mg base)/3 mL nebulizat ion soln 02/28 completed Not Available Not Available Not Available ketoconaz ole 2 % shampoo LATHER INTO SCALP TWICE A WEEK. ALLOW TO SIT ON SCALP FOR FIVE MINUTES BEFORE RINSING 02/28 completed Not Available Not Available Not Available albuterol sulfate 2.5 mg/3 mL (0.083 %) solution for nebulizat ion inhale THE contents of ONE vial FOUR TIMES DAILY active Not Available Not Available No t Available Vitamin C 500 mg tablet active Not Available Not Available Not Available azithromy indira 250 mg tablet TAKE 2 TABLETS (500 MG) BY ORAL ROUTE ONCE DAILY FOR 1 DAY THEN 1 TABLET (250 MG) BY ORAL ROUTE ONCE DAILY FOR 4 DAYS 05/12 completed Not Available Not Available Not Available tizanidin e 4 mg tablet TAKE 1 TABLET BY MOUTH THREE TIMES DAILY NEEDED active Not Available Not Available No t Available fluconazo le 150 mg tablet TAKE 1 TABLET BY MOUTH EVERY DAY FOR THREE DAYS 05/12 completed Not Available Not Available Not Available hydrocodo ne 5 mg-acetam inophen 325 mg tablet TAKE 1 TO 2 TABLETS BY MOUTH EVERY 4 HOURS NEEDED FOR PAIN FOR FIVE DAYS 06/30 completed Not Available Not Available Not Available donepezil 10 mg tablet TAKE 1 TABLET EVERY DAY 2024 active Not Available Not Available Not Avai lable sucralfat e 1 gram tablet TAKE 1 TABLET BY MOUTH FOUR TIMES DAILY BEFORE MEALS and AT BEDTIME active Not Available Not Available No t Available lisinopri l 20 mg tablet Take 1 tablet every day by oral route. active Not Available Not Available No t Available prednison e 20 mg tablet TAKE 1 TABLET BY MOUTH THREE TIMES DAILY FOR THREE DAYS, THEN ONE TWICE DAILY FOR TWO DAYS, THEN ONE EVERY DAY FOR TWO DAYS 04/28 completed Not Available Not Available Not Available acetamino phen 300 mg-codein e 30 mg tablet Take 1 tablet every 6 hours by oral route as needed for 30 days, for arthriti s pain. active Not Available Not Available No t Available ciproflox acin 500 mg tablet Take 1 tablet every 12 hours by oral route for 7 days. 02/02 completed Not Available Not Available Not Available hydrocodo ne 10 mg-acetam inophen 325 mg tablet TAKE ONE TABLET BY MOUTH EVERY 8 HOURS NEEDED FOR PAIN active Not Available Not Available No t Available tramadol 50 mg tablet TAKE 1 TABLET BY MOUTH EVERY 8 HOURS NEEDED FOR 30 DAYS active Not Available Not Available No t Available triamcino lone acetonide 0.1 % topical cream APPLY TO THE AFFECTED AREA(S) TWICE DAILY NEEDED active Not Available Not Available No t Available citalopra m 20 mg tablet TAKE 1 TABLET EVERY DAY 2024 active Not Available Not Available Not Avai lable potassium chloride ER 20 mEq tablet,ex tended release(p art/cryst ) TAKE 1 TABLET EVERY DAY 06/30 completed Not Available Not Available Not Available magnesium oxide 400 mg (241.3 mg magnesium ) tablet TAKE ONE TABLET BY MOUTH EVERY DAY active Not Available Not Available No t Available pantopraz ole 40 mg tablet,de layed release TAKE 1 TABLET EVERY DAY 2024 active Not Available Not Available Not Avai lable lisinopri l 10 mg tablet 05/28 completed Not Available Not Available Not Available nitroglyc talia 0.4 mg sublingua l tablet active Not Available Not Available Not Available betametha sone dipropion ate 0.05 % topical cream APPLY A THIN LAYER TO AFFECTED AREA TWICE DAILY NEEDED 02/28 completed Not Available Not Available Not Available gabapenti n 300 mg capsule Take 1 capsule twice a day by oral route for 90 days. 09/23 completed Not Available Not Available Not Available diclofena c sodium 75 mg tablet,de layed release TAKE 1 TABLET BY MOUTH TWICE DAILY active Not Available Not Available No t Available bumetanid e 1 mg tablet TAKE 1 TABLET EVERY DAY 2024 active Not Available Not Available Not Avai lable hydrocort isone 2.5 % topical cream APPLY TO THE AFFECTED AREA(S) TWICE DAILY FOR NO MORE THAN ONE WEEK PER MONTH 02/28 completed Not Available Not Available Not Available mupirocin 2 % topical ointment Apply by topical route for 15 days. 02/28 completed Not Available Not Available Not Available albuterol sulfate HFA 90 mcg/actua tion aerosol inhaler INHALE TWO PUFFS into lungs FOUR TIMES DAILY as needed for FOR 30 DAYS active Not Available Not Available No t Available ferrous sulfate 325 mg (65 mg iron) tablet,de layed release TAKE 1 TABLET EVERY DAY 03/23 completed Not Available Not Available Not Available celecoxib 100 mg capsule TAKE ONE CAPSULE BY MOUTH DAILY active Not Available Not Available No t Available hydrocort isone 2.5 % topical ointment apply TO scaled itchy areas of ears EVERY DAY NEEDED use no more THAN TWO weeks of THE month active Not Available Not Available No t Available fluticaso ne propionat e 50 mcg/actua tion nasal spray,jeannine pension USE 1 SPRAY IN EACH NOSTRIL TWICE DAILY FOR ALLERGIE S 2024 active Not Available Not Available Not Avai lable naproxen 500 mg tablet TAKE 1 TABLET BY MOUTH TWICE DAILY NEEDED FOR PAIN 05/12 completed Not Available Not Available Not Available amoxicill in 875 mg-potass ium clavulana te 125 mg tablet Take 1 tablet every 12 hours by oral route for 7 days. 03/24 completed Not Available Not Available Not Available 3-Day Vaginal 2 % cream USE ONE APPLICAT ORFUL EVERY DAY FOR THREE DAYS 05/12 completed Not Available Not Available Not Available Ventolin 90 mcg/actua tion aerosol inhaler four times daily, as needed 10/01 completed Recorded 06/06/20 22 3:07PM by Noe Gaston on/ dum; Mail Order Quantity : 3 Inhaler; Mail Order Days: 90 Days; Refill Quantity : 1; Inhalati on; Not Available Not Available Not Available rosuvasta tin 10 mg tablet TAKE 1 TABLET EVERY DAY 2024 active Not Available Not Available Not Avai lable Gas Relief Extra Strength 125 mg chewable tablet chew tablets with prep DIRECTED active Not Available Not Available No t Available magnesium at bedtime 05/12 completed Recorded 06/06/20 22 3:07PM by Noe Gaston on/ dum; Mail Order Quantity : 90 Tablet; Mail Order Days: 90 Days; Refill Quantity : 0; Not Available Not Available Not Available melatonin AT bedtime active Not Available Not Available No t Available Vitamin B-12 daily 2021 active Not Available Not Available Not Avai lable EpiPen as needed 05/12 completed Recorded 06/06/20 22 3:07PM by Noe Gaston on/Adden dum; Refill Quantity : 1; Package; Not Available Not Available Not Available bumetanid e daily 05/12 completed 9; Recorded 08/10/20 22 3:14PM by James Segovia (Authori zed through Milena Gamboa MD), Noe on/Adden dum; Mail Order Quantity : 90 Tablet; Mail Order Days: 90 Days; Refill Quantity : 14; Tablet; Not Available Not Available Not Available ferrous sulfate daily 05/12 completed RM/bn; 9; Recorded 08/10/20 22 3:14PM by James Segovia (Authori zed through Milena Gamboa MD), Noe on/Adden dum; Mail Order Quantity : 90 Tablet; Mail Order Days: 90 Days; Refill Quantity : 90; Tablet; Not Available Not Available Not Available diclofena c sodium as directed 05/12 completed as needed for severe arthriti s in knees and hips.; Recorded 06/06/20 3:07PM by Noe Gaston on/Adden dum; Refill Quantity : 90; Gram; Not Available Not Available Not Available dicyclomi ne two times daily 05/12 completed RM/CC; 0; Recorded 08/10/20 3:14PM by Noe Gaston on/Adden dum; Not Available Not Available Not Available Nitrostat 1tablet, under tongue, every five minutes as x3 needed for chest pain 05/12 completed disp: bottle; Recorded 06/06/20 3:07PM by Noe Gaston on/Adden dum; Refill Quantity : 0; Not Available Not Available Not Available donepezil daily 05/12 completed RM/CC; 9; Recorded 08/10/20 22 3:14PM by James Segovia (Authori zed through Milena Gamboa MD), Noe on/Adden dum; Mail Order Quantity : 90 Tablet; Mail Order Days: 90 Days; Refill Quantity : 90; Tablet; Not Available Not Available Not Available Potassium Chloride ER daily 05/12 completed RM/CC; 9; Recorded 08/10/20 22 3:14PM by James Segovia (Authori zed through Milena Gamboa MD), Noe on/Adden dum; Mail Order Quantity : 90 Tablet; Mail Order Days: 90 Days; Refill Quantity : 90; Tablet; Not Available Not Available Not Available mometason e 0.1 % topical solution APPLY TO ITCHY/FL AKEY AREAS OF EAR TWO TO THREE TIMES A WEEK NEEDED active Not Available Not Available No t Available FeroSul 325 mg (65 mg iron) tablet TAKE 1 TABLET BY MOUTH EVERY DAY active Not Available Not Available No t Available GaviLyte- N 420 gram oral solution mix accordin g TO instruct ions. drink ONE-HALF THE evening before procedur e and remainin g ONE-HALF THE morning of procedur e 01/19 completed Not Available Not Available Not Available Eliquis 5 mg tablet Take 1 tablet twice a day by oral route for 90 days. 05/28 completed Not Available Not Available Not Available Eliquis 2.5 mg tablet TAKE 1 TABLET TWICE DAILY active Not Available Not Available No t Available Eliquis daily 05/12 completed 0; Recorded 05/29/20 22 8:23AM by Alley ambrocio, Office Visit; Not Available Not Available Not Available potassium chloride ER 20 mEq tablet,ex tended release TAKE 1 TABLET BY MOUTH EVERY DAY active Not Available Not Available No t Available Trelegy Ellipta 100 mcg-62.5 mcg-25 mcg powder for inhalatio n active Not Available Not Available Not Available Vitals Date Recorded Body height Body mass index (BMI) Body weight Respiratory rate Body temperature Oxygen saturation Oxygen saturation in Arterial blood by Pulse oximetry Inhaled oxygen flow rate Heart rate Systolic And Diastolic Provider Name and Address Organization Details Last Updated DateTime 5 157.48 cm 25.6 kg/m2 11000.6 3 g 20 /min 97.3 [degF] 89 % 89 % 2 L/min 63 /min 132/60 mm[Hg] ANA ELDER [facility] 5 08:30:57 Date Recorded Body height Body mass index (BMI) Body weight Heart rate Oxygen saturation Oxygen saturation in Arterial blood by Pulse oximetry Systolic And Diastolic Provider Name and Address Organization Details Last Updated DateTime 5 157.48 cm 25.6 kg/m2 84551.9 3 g 60 /min 90 % 90 % 112/40 mm[Hg] ALLEY [facility] 5 14:34:53 Date Recorded Body height Body mass index (BMI) Body weight Oxygen saturation Oxygen saturation in Arterial blood by Pulse oximetry Inhaled oxygen flow rate Heart rate Systolic And Diastolic Provider Name and Address Organization Details Last Updated DateTime 5 157.48 cm 26.3 kg/m2 72153.3 g 96 % 96 % 2 L/min 63 /min 142/60 mm[Hg] JAMES SEGOVIA [facility] 5 16:44:16 Date Recorded Body height Body mass index (BMI) Body weight Oxygen saturation Oxygen saturation in Arterial blood by Pulse oximetry Inhaled oxygen flow rate Heart rate Systolic And Diastolic Provider Name and Address Organization Details Last Updated DateTime 5 157.48 cm 26 kg/m2 03706.1 2 g 90 % 90 % 2 L/min 67 /min 128/60 mm[Hg] [facility] 16:27:29 Date Recorded Body height Body mass index (BMI) Body weight Heart rate Systolic And Diastolic Systolic And Diastolic Provider Name and Address Organization Details Last Updated DateTime 5 157.48 cm 24.3 kg/m2 53278.7 9 g 70 /min 160/52 mm[Hg] 138/60 mm[Hg] ALLEY [facility] 5 09:38:28 Social History Question Answer Notes LastModified by [employer] Details LastModified Time Tobacco Smoking Status Never Smoker JAMES SEGOVIA [facility] 12/18/2022 14:27:00 What Was The Date Of Your Most Recent Tobacco Screening? 06/30/2025 [email or web address] Information not available 06/30/2025 Sex: Unknown Functional Status Question Answer Note LastModified by [employer] Details LastModified Time Do you use any illicit or recreational drugs? No [email or web address] Information not available 12/18/2022 What is your level of alcohol consumption? None [email or web address] Information not available 12/18/2022 Mental Status None recorded. Family History Nothing Reported Notes:Brother 1; Atrial Dila tation, Mother; Restrictive Cardiomyopathy, Father; Essential Hypertension, Heart Block, Insulin Dependent Diabetes Mellitus Medical History No medical history recorded. Gynecological HistoryNo gynecological history recorded. Obstetrics History GPAL:G 0 P 0 0 0 0 Immunizations Vaccine Type Date Status Note Provider Nam e and Address Organization Details Recorded Time Influenza, adjuvanted, trivalent, PF 5 [facility]/30[facility]25 10:44:32 Influenza, recombinant, quadrivalent, PF 0 completed JAMES SEGOVIA [facility] 02/26/2023 14:51:28 Influenza, high-dose, quadrivalent, PF 2 [facility] 02/26/2023 14:51:28 COVID-19, mRNA, LNP-S, PF, 30 mcg/0.3 mL dose 1 [facility] 02/26/2023 14:51:28 COVID-19, mRNA, LNP-S, PF, 30 mcg/0.3 mL dose 1 [facility] 02/26/2023 14:51:28 COVID-19, mRNA, LNP-S, PF, 30 mcg/0.3 mL dose 1 completed [facility] 02/26/2023 14:51:28 COVID-19, mRNA, LNP-S, PF, 30 mcg/0.3 mL dose, meenu-sucrose 2 completed [facility] 02/26/2023 14:51:28 pneumococcal polysaccharide PPV23 8 completed JAMES SEGOVIA [facility] 02/26/2023 14:51:28 Tdap 5 completed JAMES coe, [facility] 02/26/2023 14:51:28 Pneumococcal conjugate PCV 13 5 completed JAMES coe, [facility] 02/26/2023 14:51:28 Pneumococcal conjugate PCV 13 0 completed JAMES coe, [facility] 02/26/2023 14:51:28 Influenza, split virus, trivalent, preservative 5 completed JAMES coe, [facility] 02/26/2023 14:51:28 zoster live 1 completed Not Available [facility] 10/01/2023 09:46:43 Influenza, split virus, trivalent, preservative 2 completed Not Available [facility] 10/01/2023 09:46:43 Influenza, split virus, trivalent, preservative 0 completed Not Available [facility] 10/01/2023 09:46:43 Influenza, split virus, trivalent, preservative 7 completed Not Available [facility] 10/01/2023 09:46:43 Influenza, split virus, trivalent, preservative 8 completed Not Available [facility] 10/01/2023 09:46:43 pneumococcal polysaccharide PPV23 0 completed Not Available [facility] 10/01/2023 09:46:43 Influenza, split virus, trivalent, preservative 1 completed Not Available [facility] 10/01/2023 09:46:43 Influenza, adjuvanted, trivalent, PF 5 completed JAMES coe, [facility] 09/23/2024 11:47:01 zoster recombinant 5 completed JAMES coe, [facility] 09/23/2024 11:46:03 Pneumococcal conjugate PCV20, polysaccharide OOC175 conjugate, adjuvant, PF 5 completed JAMES coe [facility] 09/23/2024 11:47:24 Past Encounters Encounter ID Performer Location Encounter Start Date Encounter Closed Date Diagnosis/Indication Diagnosis SNOMED-CT Code Diagnosis ICD10 Code Diagnosis IMO Codes Diagnosis Note [id number] Milena Gamboa MD [facility] ([facility]) [address] [place] [address] [id number] 5 12/18/2022 14:12:38 12/24/2022 11:19:02 Candidiasis of vulva 1179502 B37.31 [id number] Milena Gamboa MD [facility] ([facility]) [address] [place] [address] [id number] 02/26/2023 14:18:16 02/26/2023 16:02:16 Irritant contact dermatitis 826948108 L24.9 Neuropathy 894977085 G62 .9 RLE [id number] BRENDAN BARTON PA-C [facility] ([facility]) [address] [place] [address] [id number] 5 05/01/2023 12:37:34 05/12/2023 18:54:22 Fracture of femur 50296260 S72.92XA Fracture of humerus 6630 8002 S42.301A Upper gastrointestinal bleeding 11660716 K92.89 with anemia 5dose iv fe inpt cbc/bmp on Saturday, d/c benadryl and tizanidine History of pulmonary embolus 850366273 Z86.711 eliquis and ivc filter Cyst of pancreas 8671670 0 K86.2 History of malignant neoplasm of breast 698165136 Z85.3 Mild dementia 5636673829 73362 F03.A0 [id number] Milena Gamboa MD [facility] ([facility]) [address] [place] [address] [id number] 5 05/08/2023 09:13:27 05/08/2023 12:26:38 Need for personal care assistance [id number] 8961524 Z74.1 Lives in retirement 16 3417716 Z76.89 Atrial fibrillation 4943 6004 I48.91 Chronic ob structive pulmonary disease 52889412 J44.9 Acute bronchitis 6886431 2 J20.9 Zpak and albuterol inhaler. Fracture of femur 847477 00 S72.92XD [id number] BRENDAN BARTON PA-C [facility] ([facility]) [address] [place] [address] [id number] 05/15/2023 13:19:03 05/21/2023 15:06:35 Chronic atrial fibrillation 572960838 I48.20 d/c tramadol taper off gabapentin Fracture o f distal end of femur 851911983 S72.402A still non wt bearingFac e to Face for Manual WC. Pt requires WC due to non wt bearing status. She has upper body strength and desires to use. has space in her home to accommodat e. Without WC she would not be able to do her ADLS and would be at fall riskShe is requiring a slide board for to help move from WC to bed and backShe is requiring a shower chair with sliding seat to help her perform her ADL of showering. She again is non wt bearing and this will accommodat e her limitation [facility] with [facility]/OT [id number] Milena Gamboa MD [facility] ([facility]) [address] [place] [address] [id number] 5 05/28/2023 09:15:26 05/28/2023 12:47:42 Chronic obstructive pulmonary disease 06446881 J44.9 On Trelegy daily 200mg History of deep vein thrombosis 597723400 Z86.718 Atrial fibrillation 4943 6004 I48.91 Fracture of femur 048548 00 S72.92XA She is slowly improving but still nonweightb earing. Poor short -term memory 260619614 R41.3 improved with meds. [id number] Milena Gamboa MD [facility] ([facility]) [address] [place] [address] [id number] 5 07/30/2023 13:49:43 07/30/2023 18:08:11 Chronic obstructive pulmonary disease 68843764 J44.9 On Trelegy daily 200mg History of deep vein thrombosis 281156056 Z86.718 Poor short -term memory 613426830 R41.3 improved with meds. Atrial fibrillation 4943 6004 I48.91 Essential hypertension 13927919 I10 running 140's/60's at home. Chronic at rial fibrillation 954087923 I48.20 Closed sup racondylar fracture of femur 96890133 S72.451A s/p surgery, slow healing. Continue to follow with Dr. Joyner. Chronic ki dney disease 340347679 N18.9 [id number] Milena Gamboa MD [facility] ([facility]) [address] [place] [address] [id number] 5 10/01/2023 09:45:59 10/01/2023 11:15:11 Depressive disorder 28063094 F32.9 Essential hypertension 14841747 I10 stable. Generalize d osteoarthritis 149124493 M15.9 Fracture of femur 917723 00 S72.92XA She is slowly improving. Now weightbear ing and is improving mobility. [id number] Milena Gamboa MD [facility] ([facility]) [address] [place] [address] [id number] 5 12/31/2023 14:27:32 12/31/2023 17:39:41 Chronic obstructive pulmonary disease 27218761 J44.9 On Trelegy daily 200mg Generalize d osteoarthritis 783939292 M15.9 Chronic at rial fibrillation 991276885 I48.20 Essential hypertension 72536965 I10 stable. Primary ma lignant neoplasm of female breast 28764988 C50.919 Iron defic iency anemia 58169129 D50.9 [id number] Milena Gamboa MD [facility] ([facility]) [address] [place] [address] [id number] 5 03/23/2024 13:42:45 03/23/2024 17:02:28 Chronic obstructive pulmonary disease 67871276 J44.9 On Trelegy daily 200mg Chronic ki dney disease 281949514 N18.9 Essential hypertension 18268605 I10 stable. Atrial fibrillation 4943 6004 I48.91 Primary ma lignant neoplasm of female breast 09963325 C50.919 stable in remission. Pain in coccyx 35607921 M53.3 recommende d a small inner tube for sitting on till pain is better. [id number] Milena Gamboa MD [facility] ([facility]) [address] [place] [address] [id number] 5 05/25/2024 10:10:29 05/25/2024 12:07:47 Chronic obstructive pulmonary disease 99902653 J44.9 On Trelegy daily 200mg Also on oxygen at 2lpm. Chronic at rial fibrillation 873121669 I48.20 stable, Essential hypertension 30616840 I10 stable. She will begin checking twice daily for a couple of weeks at home and she will let us know if she continues to run a little high at home. [id number] Milena Gamboa MD [facility] ([facility]) [address] [place] [address] [id number] 5 09/23/2024 09:32:35 09/24/2024 14:58:08 Chronic obstructive pulmonary disease 72921514 J44.9 On Trelegy daily 200mg Also on oxygen at 2lpm. Atrial fibrillation 4943 6004 I48.91 stable. Essential hypertension 66260475 I10 Chronic ki dney disease 241811369 N18.9 [id number] EDGAR ORTIZ [facility] ([facility]) [address] [place] [address] [id number] 5 01/19/2025 09:22:57 01/19/2025 09:59:58 Dysuria 95293840 R30.0 34952 Discussed to take antibiotic as prescribed until completedU rine culture ordered - will notify of any resultsEdu cated patient on increasing PO fluids of water, decreasing caffeine (coffee) and sugary drinks.Dis cussed importance of avoiding baths, scented soaps, douching, perfumes.M ay take OTC AZO for 1-2 days as box directs for burning sensation. Discussed if developmen t of worsening abdominal pain, flank pain, fever, vomiting, worsening symptoms return to walk-in, PCP or ED for re-evaluat ion. Return to clinic if any changes, any worsening, any concernsPa tient verbalized understand ing of plan. [id number] Milena Gamboa MD [facility] ([facility]) [address] [place] [address] [id number] 5 01/22/2025 15:01:25 01/26/2025 13:38:25 Pain of left knee joint 0030274252 07126 M25.562 160864 s/p hardware removal. Atrial fibrillation 4943 6004 I48.91 stable. Chronic ob structive pulmonary disease 06240055 J44.9 On Trelegy daily 200mg Also on oxygen at 2lpm. Essential hypertension 85513280 I10 Periprosth etic fracture 653977251 M97.9XXA 9833623818 [id number] Milena Gamboa MD [facility] ([facility]) [address] [place] [address] [id number] 5 03/08/2025 09:07:11 03/09/2025 10:17:05 Iron deficiency anemia due to blood loss 514661026 D50.0 628368 Fatigue 22190081 R53.82 705103 Dyspnea on exertion 6084 5006 R06.09 044933 Gastroesop hageal reflux disease 846803670 K21.9 [id number] EDGAR ORTIZ [facility] ([facility]) [address] [place] [address] [id number] 5 03/10/2025 08:09:40 03/10/2025 09:25:03 Blood in urine 96048271 R31.9 12538691 Acute urin juan r tract infection 166503830 N39.0 893579 Discussed to take antibiotic as prescribed until completedU rine culture ordered - will notify of any resultsEdu cated patient on increasing PO fluids of water, decreasing caffeine (coffee) and sugary drinks. Discussed if developmen t of worsening abdominal pain, flank pain, fever, vomiting, worsening symptoms return to walk-in, PCP or ED for re-evaluat ion. Return to clinic if any changes, any worsening, any concernsPa tient verbalized understand ing of plan. [id number] Milena Gamboa MD [facility] ([facility]) [address] [place] [address] [id number] 5 03/29/2025 14:11:09 03/29/2025 15:09:12 Low back pain 846337492 M54.50 093950 radicular pain on right side. Cramp 10216139 R25.2 06650 Essential hypertension 80142397 I10 Chronic ki dney disease stage 2 702618140 N18.2 0952414 Iron defic iency anemia 14217364 D50.8 28719752 [id number] Milena Gamboa MD [facility] ([facility]) [address] [place] [address] [id number] 5 04/09/2025 15:40:00 04/09/2025 17:34:43 Low back pain 133571109 M54.50 393178 radicular pain on right side. Worse since her fall but is getting better. Essential hypertension 67493387 I10 Vitamin D deficiency 347 94413 E55.9 408134 Iron defic iency anemia 83897300 D50.8 99304156 [id number] Milena Gamboa MD [facility] ([facility]) [address] [place] [address] [id number] 5 04/28/2025 16:16:36 04/28/2025 17:17:21 Low back pain 473806616 M54.50 222719 radicular pain on right side. Sciatica She has appt with Dr. Lis nunn. Essential hypertension 75092609 I10 Chronic ob structive pulmonary disease 93406251 J44.9 On Trelegy daily 200mg Also on oxygen at 2lpm with 4lpm at hs. [id number] Milena Gamboa MD [facility] ([facility]) [address] [place] [address] [id number] 5 06/30/2025 09:19:54 06/30/2025 11:13:28 Screening for osteoporosis 983277913 Z13.820 Screening mammography 24 806206 Z12.31 Screening for malignant neoplasm of colon 658176492 Z12.11 Hypercholesterolemia 136 62278 E78.5 Chronic ob structive pulmonary disease 94998203 J44.9 On Trelegy daily 200mg Also on oxygen at 2lpm with 4lpm at hs. Stable Generalize d osteoarthritis 016738937 M15.9 Low back pain 604207902 M54.50 383555 radicular pain on right side. Sciatica She has appt with Dr. Lis nunn. Atrial fibrillation 4943 6004 I48.91 stable. Essential hypertension 04434515 I10 General ex amination of patient 882209128 Z00.01 84531712 Chronic neck pain 237925 7629 107 M54.2 G89.29 8428571 Chronic pa in of right upper limb 7504964807 1858940 M25.511 G89.29 190364 worsening Chronic low back pain 27 8121888 M54.50 G89.29 71194197 radicular pain on right side. Sciatica She has appt with Dr. Lis nunn. Health Concerns Section Related Observation LastModified by Organization Detai ls LastModified Time None Recorded Concern Status LastModified by Organization Details LastModified Time None Recorded Advance Directives Directive None Recorded Payers Insurance Date Sequence Insurance Name Policy Number Policy Ramsay Covered Member ID Ramsay Member ID Guarantor Name 06/30/2025 1 [employer] (MEDICARE REPLACEMENT/ ADVANTAGE - PPO) Maddison Jenkins [id number] Maddison Jenkins Notes Date Note Type Note Provider Name and Address Organization Details Recorded Time 5 text/html ROS as noted in the HPI walk-in; PCP Dr. Gamboa Patient woke up this morning with blood in her urine. No pain. She does have a kidney doctor and requests we let her know. EDGAR ORTIZ [address] [place], [address], [facility] 03/10/2025 08:40:09 5 text/html Back PainReported by PatientHPIFor location, patient reportsradiation to leg bilateralandradiation to arm __but reportslumbar __. For severity, patient reportsworsening. For quality, patient reportssharp. Milena Gamboa MD [address] [place] [address], [phone], [facility] 03/29/2025 15:08:34 5 text/html Back PainReported by PatientHPIFor location, patient reportsradiation to leg bilateralbut reportslumbar __. For severity, patient reportsworseningandpain level 7/10. For quality, patient reportssharp. For timing, patient reportschronic. Vaginal/Vulvar ProblemReported by PatientHPIFor location, patient reportsvagina. For duration, patient reportspresent for 1-7 days. For quality, patient reportsswelling. For severity, patient reportsmild. For associated symptoms, patient reportsno vaginal itchingandno vaginal irritation. Milena Gamboa MD [address] [place], [phone], [facility] 04/09/2025 17:19:54 5 text/html Back PainReported by PatientHPIFor location, patient reportsradiation to leg bilateralbut reportssacral midline. For severity, patient reportspain level 8/10but reportsimproving. For quality, patient reportsdull. For timing, patient reportschronic. For context, patient reportsfall. For aggravating factors, patient reportsambulation. Had a fall on 04/15/25 and went to ER at [place] and was told that it was sciatica. Milena Gamboa MD [address] [place] [address], [phone], [facility] 04/28/2025 17:16:08 5 text/html Back PainReported by PatientHPIFor severity, patient reportsworsening. For location, patient reportslumbar bilateral. For quality, patient reportssharp. For context, patient reportstrauma. For associated symptoms, patient reportsno fever,no weakness,no numbness, andno tingling. Hypertension IM/FMReported by PatientHPIFor associated symptoms, patient reportsshortness of breath,fatigue,palpitations , andexertional dyspnea. For quality, patient reportshere for check-up. For alleviating factors, patient reportsmedication. Medicare Annual Wellness VisitReported by PatientSocial/Behavioral HistoryFor diet and nutrition, patient reportshealthy diet. For fracture risk, patient reportsno history of fractures,no recent explained fracture,no sudden unexplained fractures, andno previous musculoskeletal injuries.Mental Status:For depression risk, patient reportsnever feels sad, empty, or tearful,no loss of interest in activities,no significant changes in weight,no sleep disturbances or insomnia,no agitation,no loss of energy,no feelings of worthlessness or guilt,no thoughts of suicide,no history of depression, andno history of mood disorders. For orientation, patient reportsno disorientation to time,no disorientation to date, andno disorientation to place. For concentration and memory, patient reportsno decreased concentrating ability,no memory lapses or loss, anddoes not forget words. For speech/motor difficulties, patient reportsno speech difficulties,no difficulty expressing formulated concepts,no difficulty with fine manipulative tasks,no difficulty writing/copying,no slowed reaction time, anddoes not knock things over when trying to pick them up.Functional AbilityFor hearing, patient reportsno loss of hearing. For vision, patient reportsno vision problems. For activities of daily living, patient reportsable to bathe with limited or no assistance,able to contol urination and bowels,able to dress with limited or no assistance,able to feed self with limited or no assistance,able to get out of chair or bed with limited or no assistance,able to groom with limited or no assistance, andable to toilet with limited or no assistance. For instrumental activities of daily living, patient reportsable to do house work with limited or no assistance,able to grocery shop with limited or no assistance,able to manage medications with limited or no assistance,able to manage money with limited or no assistance,able to prepare meals with limited or no assistance, andable to use the phone with limited or no assistance. For falls risk assessment, patient reportsfall(s) since last visit1. For home safety, patient reportsno unsafe lyn hazzards,no unsafe stairs,no unsafe gas appliances,working smoke/co detectors,wears protective head gear for biking/high velocity,use of seatbelts,practicing 'safer sex',no vision or hearing loss while driving,no fire arms,has hand bars in the bathroom/shower, andgood lighting in the home. COPDReported by PatientHPI:For severity, patient reportsvery limiting. For duration, patient reportschronic. Milena Gamboa MD [address] [place], [phone], [facility] 06/30/2025 11:10:05 OBGyn Episode No OBEpisode recorded.
[2025-07-13 11:39] LABS: Hematocrit 30.8 % (36-47); Hemoglobin 8.40 g/dL (11.27-16.99); Mean Corpuscular HGB Conc 27.3 g/dL (30-55); Mean Corpuscular Hemoglobin 24.9 pg (27-33); Mean Corpuscular Volume 91.4 fl (85-98); Nucleated Red Blood Cells % 1.0 %; Platelet Count 269 10^3/cmm (157-399); Red Blood Count 3.37 10^6/uL (3.85-5.65); White Blood Count 5.07 10^3/uL (3.29-11.43)
[2025-07-13 11:46] LABS: INR 1.04 (0.8-1.2); Prothrombin Time 14.30 SECONDS (12.1-14.9)
--- NOTE | 2025-07-13 11:46 | ECG_ITS ---
[facility]anda [facility] Operation and Maintenance Test Date: 2025-07-13 Pat Name: Maddison Jenkins Department: Room: Gender: Female [employer] Principal: : 1945 Requested By: Graciela Scanlon Order Number: [id number] John MD: Oscar Thompson M.D. Measurements Intervals [place] Rate: 70 P: 0 CT: 0 QRS: 62 QRSD: 93 T: 64 QT: 407 QTc: 441 Interpretive Statements SINUS RHYTHM WITH HIGH GRADE AV BLOCK TECHNICALLY POOR TRACING - PLEASE REPEAT ECG Compared to ECG 11/04/2024 14:31:14 SEVERE TRCING ARTIFACT IS NEW Electronically Signed On 07-14-2025 20:23:03 EARTH MOVING MACHINE OPERATOR by Oscar Thompson M.D. [email or web address]
[2025-07-13 11:47] LABS: Partial Thromboplastin Time 30.9 SECONDS (23.9-36.7)
[2025-07-13 11:50] LABS: Alanine Aminotransferase 10 U/L (0-33); Albumin Level 4.0 g/dL (3.5-5.2); Alkaline Phosphatase 112 U/L (35-105); Anion Gap 13.7 (5-19); Aspartate Amino Transferase 20 U/L (0-32); Blood Urea Nitrogen 27 mg/dL (8-23); Calcium 8.6 mg/dL (8.5-10.5); Carbon Dioxide 32 mmol/L (22-29); Chloride 100 mmol/L (98-107); Globulin 1.9 g/dL (1.3-4.6); Glucose 117 mg/dL (65-115); Osmolality Calculated 298 mOsm/kg (285-295); Potassium 4.7 mmol/L (3.5-5.1); Sodium 141 mmol/L (136-145); Total Protein 5.9 g/dL (6.6-8.7)
[2025-07-13 11:51] LABS: Lactic Sepsis W/Reflex 1.7 mmol/L (0.5-2.2)
[2025-07-13 12:10] LABS: Glucose Urine UA Negative (Normal); Nitrate Urine Negative (Negative); Specific Gravity, Urine 1.011 (1.005-1.030)
[2025-07-13 12:17] LABS: ABG PH Result 7.31 (7.35-7.45); Alveolar-Arterial Oxygen Gradi 10.2 mmHg (5-10); Arterial Blood Gas Hematocrit 25.5 % (37-47); Blood Gas Allen Test Pos; Blood Gas LPM 3.0 %; Blood Gas Operator Identificat MONRO; Blood Gas Sample Site Radial, left; Blood Gas Sample Type Arterial; Carboxyhemoglobin 2.5 %THgb (0.4-20.1); Glucose Level-ABG 118.0 mg/dL (70-115); HCO3 ABG 34.0 mmol/L (22-26); Ionized Calcium Level - ABG 1.2 mmol/L (1.1-1.4); Methemoglobin 0.4 % (0.4-1.5); Oxygen Saturation ABG 92.9; PO2 ABG 68.8 mmHg (80.0-100.0); PO2 FiO2 Ratio Arterial Blood 215; Potassium Level - ABG 4.6 mmol/L (3.5-5.0); Sodium Level - ABG 140.0 mmol/L (131-143)
[2025-07-13 12:18] LABS: ABG PCO2 67.2 mmHg (35-45)
[2025-07-13 12:50] LABS: Respiratory Syncytial Virus Ce NEGATIVE (Negative); SARS-CoV-2 PCR NEGATIVE (Negative)
[2025-07-13] MEDS: doxycycline 100 MG in sodium chloride 0.9% (plus) 100 ML IV (12:56)
[2025-07-13] MEDS: methylPREDNISolone sod succ 125 mg/2 mL INJ IVP (12:56)
--- NOTE | 2025-07-13 13:53 | PM.HP ---
Providers/Chief Complaint Primary Care Provider: Zhang Gamboa MD Chief Complaint: stroke like symptoms History of Present Illness Maddison Jenkins is a 80 year old female with past medical history of PE, on anticoagulation with Eliquis, IVC filter in place, COPD chronically on 2 L during the day 4 L during the night, DVT, breast cancer, hypertension, GI bleed presents to the ER today from her home because of confusion, slurred speech, unsteady on her feet for last 1 week. Associated with runny nose. Denies any nausea, vomiting, headache, chest pain, dizziness, palpitations, sick contacts. In the ER she was found to have hypercapnia with respiratory acidosis for which she was placed on BiPAP after which her mentation and her slurred speech improved. CT head was done which was negative for acute stroke. On examination patient is on BiPAP 30% FiO2 saturating 90%. Review of Systems General: Reports: 10 or more systems reviewed and unremarkable except in HPI and below Const: Denies: fever(s), chills, body aches, change in appetite, change in weight, malaise, night sweats, diaphoresis, change in sleep pattern, daytime sleepiness or snoring Eyes: Denies: change in vision, blurry vision, photophobia, eye discomfort or eye discharge ENMT: Denies: throat pain, enlarged tonsils, hoarseness, mouth pain, oral sores, dry mouth, tinnitus, nasal congestion or post nasal drip Card: Denies: chest pain, palpitations, irregular heart rhythm, edema, swelling of feet/ankles, lightheadedness, syncope, pre-syncope, dyspnea on exertion, orthopnea, leg pain with exertion or acrocyanosis Resp: Denies: dyspnea, productive cough, non-productive cough, wheezing, stridor, pain on inspiration, change in phlegm color, hemoptysis or chest congestion GI: Denies: abdominal pain, nausea, vomiting, hematemesis, coffee ground emesis, dysphagia, heartburn, diarrhea, constipation, bloating, GI cramping, change in bowel habits, pain on defecation, hematochezia or melena : Denies: flank pain, dysuria, urinary frequency, urinary urgency, urinary hesitancy, nocturia or hematuria Musc: Denies: neck pain, back pain, extremity pain, joint pain, joint swelling, joint redness, joint stiffness or limited range of motion Neuro: Denies: headache(s), numbness in extremities, weakness in extremities, sensory changes, lack of coordination, difficulty walking, frequent falls, dizziness, vertigo, confusion, Slurred speech present, difficulty communicating thoughts or seizure-like activity Psych: Denies: anxiety, depression, mood swings, panic attacks, hopelessness or irritability Endo: Denies: polyuria, polydipsia, tired all the time, cold intolerance, excessive sweating, flushing or heat intolerance Blayne/Lymph: Denies: easy bruising or easy bleeding All/Imm: Denies: tongue swelling, facial swelling or acute wheezing Medications/Allergies Home Medications ?Medication ?Instructions ?Recorded ?Confirmed ?Last Taken ?Type ferrous sulfate 324 mg (65 mg 324 mg PO DAILY 09/09/19 07/13/25 01/11/25 History iron) tablet,delayed release magnesium oxide 500 mg capsule 500 mg PO DAILY 12/10/19 07/13/25 01/11/25 History mecobalamin (vitamin B12) 1,000 1,000 mcg PO DAILY 12/10/19 07/13/25 01/11/25 History mcg chewable tablet Power step arch support #2 ea 05/04/21 07/13/25 09/18/21 Rx fluticasone propionate 50 1 spray intranasal BID 01/26/22 07/13/25 11/04/24 History mcg/actuation nasal spray,suspension nitroglycerin 0.4 mg sublingual 0.4 mg sublingual Q5M PRN Chest 05/22/22 07/13/25 Unknown Rx tablet Pain #25 tabs potassium chloride 20 mEq 20 meq PO BID #180 tabs 05/22/22 07/13/25 01/11/25 Rx tablet,extended release(part/cryst) (Klor-Con M) donepezil 10 mg tablet 1 tab PO DAILY 06/19/22 07/13/25 01/11/25 History pantoprazole 40 mg tablet,delayed 40 tab PO DAILY 06/19/22 07/13/25 01/11/25 History release rosuvastatin 10 mg tablet 1 tab PO QPM 06/19/22 07/13/25 01/10/25 History bumetanide 1 mg tablet 1 mg PO DAILY 07/30/22 07/13/25 01/11/25 History cholecalciferol (vitamin D3) 25 25 mcg PO DAILY 07/30/22 07/13/25 01/11/25 History mcg (1,000 unit) capsule diphenhydramine HCl 25 mg tablet 25 mg PO TID PRN Allergic Symptoms 07/30/22 07/13/25 04/23/23 History (Benadryl Allergy) ascorbic acid (vitamin C) 500 mg 500 mg PO DAILY #90 caps 09/25/22 07/13/25 01/11/25 Rx capsule apixaban 2.5 mg tablet (Eliquis) 2.5 mg PO BID 30 days #60 tabs 04/29/23 07/13/25 01/07/25 Rx Haskell Brace #1 ea 05/13/23 07/13/25 Unknown Rx hinged knee brace #1 ea 09/10/23 07/13/25 Unknown Rx Supinator to right #1 ea 03/18/24 07/13/25 Unknown Rx gabapentin 600 mg tablet 600 mg PO BID 11/04/24 07/13/25 01/11/25 History celecoxib 100 mg capsule (Celebrex) 100 mg PO DAILY #30 caps 01/13/25 07/13/25 Unknown Rx tramadol 50 mg tablet 50 mg PO Q8H PRN pain #10 tabs 04/06/25 07/13/25 Unknown Rx albuterol sulfate 90 mcg/actuation 2 puff inhalation QID PRN 05/05/25 07/13/25 Unknown History aerosol inhaler Shortness Of Breath citalopram 20 mg tablet 20 mg PO DAILY 05/05/25 07/13/25 Unknown History hydrocodone 5 mg-acetaminophen 325 1 - 2 tab PO Q4H PRN Pain 05/05/25 07/13/25 Unknown History mg tablet mometasone 0.1 % topical solution See Rx Instructions .Route .COMPLEX 05/05/25 07/13/25 Unknown History tizanidine 4 mg tablet 4 mg PO TID PRN Spasms 05/05/25 07/13/25 Unknown History triamcinolone acetonide 0.1 % 1 applic topical BID 07/13/25 07/13/25 Unknown History topical cream Allergies Allergy/AdvReac Type Severity Reaction Status Date / Time No Known Allergies Allergy Verified 06/23/25 08:13 PFSH Acute PFSH: Medical History (Updated 07/13/25 @ 14:47 by Junior Rivera MD) Supracondylar fracture of left femur Periprosthetic fracture around internal prosthetic left knee joint Closed fracture of greater tuberosity of humerus GI bleed Osteopenia Anemia Greater trochanteric bursitis of left hip Osteoarthritis of left hip History of nonmelanoma skin cancer detention (current) use of aromatase inhibitors Presence of IVC filter DVT (deep venous thrombosis) Bradycardia Patient states her heart rate runs in 40s to 50s at home Chronic kidney disease Hematoma Small complex fluid lesion adjacent to superficial thrombophlebitis in the left calf, 26 x 10 x 24 mm, Superficial thrombophlebitis Pulmonary emboli Obstructive sleep apnea Chronic respiratory failure with hypoxia and hypercapnia Varicose veins of left leg with edema COPD (chronic obstructive pulmonary disease) Tachycardia HTN (hypertension) Hyperlipidemia GERD (gastroesophageal reflux disease) CHF (congestive heart failure) Acute depression IBS (irritable bowel syndrome) Alzheimer disease Seasonal allergic rhinitis Rheumatoid arthritis B12 deficiency Muscle spasm Breast cancer Surgical History Status post hardware removal Date of procedure: January 12, 2025 Pre-op diagnosis: Retained painful hardware following left periprosthetic distal femur fracture with supracondylar and intercondylar components as well as distal femoral shaft fracture Post-op diagnosis: Left femur retained painful hardware following left periprosthetic distal femur fracture with supracondylar and intercondylar components as well as distal femoral shaft fracture Procedure done: Left femoral shaft and distal femur hardware removal with removal of bone from over the plate. 12 screws and 1 extra long femoral plate. Implants: Removal of 12 screws and 1 extra long femoral plate Specimens removed/disposition: Plate and screws Surgeon: Blessing Joyner MD History of total left knee replacement S/P ORIF (open reduction internal fixation) fracture (04/25/23) ORIF of left periprosthetic distal femur fracture S/P IVC filter History of back surgery H/O neck surgery H/O shoulder surgery H/O wrist surgery History of ear surgery History of lumpectomy of right breast (02/26/19) Right breast lumpectomy with axillary sentinel lymph node biopsy History of hysterectomy History of cholecystectomy Family History Father CAD (coronary artery disease) Cancer Mother CAD (coronary artery disease) Brother CAD (coronary artery disease) Sister Cancer Other Diabetes Hyperlipidemia Hypertension Lung disease Psychiatric illness Social History Smoking and tobacco/nicotine status: former use of tobacco/nicotine Quit status (tobacco/nicotine): has quit using Year quit tobacco: 1995 - 1PPD x 40 Years Alcohol intake: never Substance/Drug Use: never Lives independently: Yes Household members: spouse Marital status: Current occupational status: retired Do you think of yourself as: Straight/Heterosexual Current gender identity: Female Vitals/I&O/Wt Last Vital Signs Temp 98.2 F 07/13/25 11:25 Pulse 61 07/13/25 12:55 Resp 17 07/13/25 12:55 BP 119/40 07/13/25 12:28 Pulse Ox 96 07/13/25 12:55 O2 Del Method Room Air 07/13/25 12:28 O2 Flow Rate 3 07/13/25 11:28 Weight last 48 hrs Weight 59.421 kg Physical Exam Narrative: General: No acute distress, AO x3, thin built HEENT: PERRLA, pupils bilaterally equal and reactive Chest: Bilateral bronchial breath sounds all over lung bases occasional rhonchi CVS: S1-S2 regular, no murmurs, no tachycardia, no gallops, no rubs Abdomen: Soft, nontender, no organomegaly, bowel sounds present Neuro: No focal deficits, no facial deformity, AO x3, power 5/5 in all limbs Data 07/13/25 11:27 07/13/25 11:27 A&P Assessment and plan 1. Respiratory failure with hypoxia and hypercapnia: Evident on ABG. Associated with respiratory acidosis. Currently on BiPAP. Repeat ABG in 1 hour after being on BiPAP. If not improving will plan for AVAPS. Oxygen supplementation keeping saturation over 88%. Most likely in setting of COPD exacerbation. Pulmicort twice daily, DuoNeb every 6 hour. Solu-Medrol 125 mg one-time followed by 40 mg IV every 6 hours. Will wean aggressively. Check respiratory viral panel, MRSA swab, sputum culture. Empirically start on IV ceftriaxone and oral azithromycin for now. Check D-dimer. Depending on D-dimer plan for CTA chest versus CT chest. 2. Anemia: Baseline hemoglobin 7.8-9.5. Currently 8.4. Check stool for occult blood. IV Protonix 40 mg twice daily, Carafate ACHS. Check iron panel, vitamin B12 folate level, reticulocyte count. 3. History of deep venous thrombosis or pulmonary embolus: History of PE in 2019. Followed by GI bleed at time she had IVC filter placed. Anticoagulation was stopped. Subsequently after stopping anticoagulation she developed DVT. Has been on Eliquis since then. For now continue with Eliquis 2.5 mg twice daily. 4. HTN (hypertension): Goal blood pressure less than 140/90 mmHg. Monitor blood pressures. Will restart antihypertensive accordingly. 5. COPD (chronic obstructive pulmonary disease): 6. AMS (altered mental status): In setting of hypercapnia and respiratory acidosis. CT head negative for acute stroke. If patient continues to have further occurrence of altered mental status we will consider doing an MRI brain. 7. Respiratory acidosis: Plan: History of congestive heart failure, diastolic in nature. Appreciate last echocardiogram from December 2023 showing normal EF with mild pulmonary hypertension. Continue to monitor. CODE STATUS: Discussed and with the patient. Daughter and will be DPOA. Patient does not want any active resuscitative measures or aggressive measures. DNR/DNI. Protonix to be sufficient for PUD prophylaxis Eliquis was sufficient for DVT prophylaxis Clear liquid diet PDMP PDMP Reviewed: Not Reviewed Attestations Medical Necessity Statement*: Admission for more than 2 midnights for management of respiratory acidosis, hypercapnic and hypoxic respiratory failure due to altered status due to COPD exacerbation Critical Care Time: The high probability of a clinically significant, sudden or life threatening deterioration of the patient's [pulmonary] system(s) required my full and direct attention, intervention and personal management. The critical care time is as shown. This time is in addition to time spent performing any reported procedures but includes the following: [x] Data and vital sign review and interpretation [x] Patient assessment, examination and intervention [x] Documentation [x] Medication orders and management Critical Care Time (min): 75 Coding Level of Care Code Critical Care >/= 30 minutes Critical care time (in minutes): 75 The high probability of a clinically significant, sudden or life threatening deterioration, as referenced in this documentation, required my full and direct attention, intervention and personal management. The critical care time shown is in addition to time spent performing any reported separately billable procedures and includes the following: [x] Data and vital sign review and interpretation [x] Patient assessment, examination and intervention [x] Medication orders and management [x] Patient/Family updates as able [x] Care Coordination and Documentation. Diagnoses Respiratory failure with hypoxia and hypercapnia J96.91; J96.92 Anemia D64.9 History of deep venous thrombosis or pulmonary embolus HTN (hypertension) I10 COPD (chronic obstructive pulmonary disease) J44.9 AMS (altered mental status) R41.82 Respiratory acidosis E87.29
[2025-07-13 14:08] LABS: ABG PH Result 7.30 (7.35-7.45); Alveolar-Arterial Oxygen Gradi 8.4 mmHg (5-10); Arterial Blood Gas Hematocrit 26.1 % (37-47); Blood Gas Allen Test Pos; Blood Gas Operator Identificat MONRO; Blood Gas Sample Site Brachial, right; Blood Gas Sample Type Arterial; Carboxyhemoglobin 2.4 %THgb (0.4-20.1); Glucose Level-ABG 108.0 mg/dL (70-115); HCO3 ABG 31.8 mmol/L (22-26); Ionized Calcium Level - ABG 1.2 mmol/L (1.1-1.4); Methemoglobin 0.3 % (0.4-1.5); Oxygen Saturation ABG 93.8; PO2 ABG 70.5 mmHg (80.0-100.0); PO2 FiO2 Ratio Arterial Blood 235; Potassium Level - ABG 4.2 mmol/L (3.5-5.0); Sodium Level - ABG 140.0 mmol/L (131-143)
[2025-07-13 14:09] LABS: ABG PCO2 65.2 mmHg (35-45)
[2025-07-13 14:25] LABS: Procalcitonin 0.13 ng/mL (0-0.5)
--- NOTE | 2025-07-13 14:39 | PC.PHAR ---
Pt unable to verify her medications. Med rec completed via [facility] and [facility] order pharmacies.
--- NOTE | 2025-07-13 15:04 | CTR_ITS ---
PROCEDURE INFORMATION: Exam: CTA Chest With Contrast Exam date and time: 07/13/2025 4:35 PM Age: 80 years old Clinical indication: Other: H/o pe, resp failure; History--pt presents with stroke like symptoms. Patient states has been occurring for 5 days. Patient states slurred speech, dizzinesss, and falling. TECHNIQUE: Imaging protocol: Computed tomographic angiography of the chest with contrast. Exam focused on the arteries. 3D rendering (Not supervised by radiologist): MIP and/or 3D reconstructed images were created by the technologist. Radiation optimization: All CT scans at this facility use at least one of these dose optimization techniques: automated exposure control; mA and/or kV adjustment per patient size (includes targeted exams where dose is matched to clinical indication); or iterative reconstruction. Contrast material: [id number]; Contrast volume: 100 ml; Contrast route: INTRAVENOUS (IV); COMPARISON: CT angio chest [id number] 01/12/2022 9:04 AM RADIATION DOSE METRICS: Total DLP (mGy-cm): 226.21 FINDINGS: Pulmonary arteries: Prominence of the main, right, and left pulmonary arteries suggestive of pulmonary hypertension. No pulmonary embolism. Aorta: Intimal calcifications of the aorta and it proximal branch vessels. Veins: IVC filter is partially visualized. Trachea: Patent central airways. Lungs: Diffuse centrilobular emphysema most prominently in the upper lobes. Pleural spaces: Unremarkable. No pneumothorax. No pleural effusion. Heart: The heart is enlarged. No pericardial effusion. Lymph nodes: Prominent pretracheal lymph node measuring up to 1.6 cm, nonspecific. Gallbladder and biliary ducts: Cholecystectomy. Biliary ductal dilatation is unchanged since prior CT chest abdomen and pelvis 02/27/2024 Spleen: Nonspecific splenic calcifications. Kidneys: Left renal stones measuring up to 8 mm. Left renal hypoattenuating lesion, not well evaluated due to streak artifact. Bones/joints: Partially visualized ACDF and posterior spinal fusion hardware. Degenerative changes of the spine. Soft tissues: Asymmetric nodular soft tissue in the left breast measuring 1.5 cm , unchanged since 2021. Surgical clips right breast. CT/CT angio chest PE protcl [id number] IMPRESSION: 1. No pulmonary embolism. 2. Diffuse centrilobular emphysema. Enrollment in a low-dose CT screening program is recommended.
[2025-07-13 15:34] LABS: Iron 264 ug/dL (37-145); Thyroid Stimulating Hormone 3.71 uIU/mL (0.27-4.20); Total Iron Binding Capacity 374 mcg/dl; Unsaturated Iron Binding 110 ug/dL (112-347)
[2025-07-13 16:14] LABS: ABG PH Result 7.29 (7.35-7.45); Alveolar-Arterial Oxygen Gradi 9.0 mmHg (5-10); Arterial Blood Gas Hematocrit 27.2 % (37-47); Blood Gas Allen Test Pos; Blood Gas LPM 3.0 %; Blood Gas Operator Identificat MONRO; Blood Gas Sample Site Brachial, right; Blood Gas Sample Type Arterial; Carboxyhemoglobin 2.3 %THgb (0.4-20.1); Glucose Level-ABG 130.0 mg/dL (70-115); HCO3 ABG 32.3 mmol/L (22-26); Ionized Calcium Level - ABG 1.2 mmol/L (1.1-1.4); Methemoglobin 0.2 % (0.4-1.5); Oxygen Saturation ABG 95.0; PO2 ABG 77.0 mmHg (80.0-100.0); PO2 FiO2 Ratio Arterial Blood 240; Potassium Level - ABG 4.1 mmol/L (3.5-5.0); Sodium Level - ABG 142.0 mmol/L (131-143)
[2025-07-13 16:16] LABS: ABG PCO2 67.2 mmHg (35-45)
[2025-07-13] MEDS: iohexol 350 mg/mL 500 mL Btl (per mL) IV (16:43)
[2025-07-13] MEDS: sucralfate 1 gm/10 mL Oral Liq UDC PO ×2 (17:07→20:02)
[2025-07-13] MEDS: APIXABAN 2.5 MG TABLET PO (17:07)
[2025-07-13] MEDS: cefTRIAXone 1,000 mg SDV 1000 MG IVP (17:08)
[2025-07-13] MEDS: pantoprazole 40 mg SDV IVP (17:08)
[2025-07-13 19:59] LABS: MRSA PCR OZH (swab) NOT DETECTED (Not Detecte)
[2025-07-13] MEDS: methylPREDNISolone sod succ 40 mg/mL INJ IVP (20:02)
[2025-07-13 21:57] LABS: Coronavirus 229E,HKU1,NL63,OC4 Not Detected (NOT DETECT); Parainfluenza Virus Type 1 Not Detected (NOT DETECT); Parainfluenza Virus Type 2 Not Detected (NOT DETECT); Parainfluenza Virus Type 3 Not Detected (NOT DETECT); Parainfluenza Virus Type 4 Not Detected (NOT DETECT); SARS-COV-2 Not Detected (NOT DETECT)
[2025-07-14] VITALS (14 sets, daily range): BP systolic 121–157; BP diastolic 45–67; PULSE 59–96; RESP 13–21; TEMP 36.5–37.1; O2SAT 90–98
[2025-07-14 01:40] LABS: Estmated Average Glucose 77; Hemoglobin A1C 4.3 % (4.0-6.0)
[2025-07-14 02:00] LABS: Vitamin B12 > 2000 pg/mL (232-1245)
[2025-07-14] MEDS: methylPREDNISolone sod succ 40 mg/mL INJ IVP ×4 (02:04→16:50)
[2025-07-14] MEDS: APIXABAN 2.5 MG TABLET PO ×2 (04:33→16:51)
[2025-07-14] MEDS: pantoprazole 40 mg SDV IVP ×2 (04:33→16:50)
[2025-07-14 05:37] LABS: Hematocrit 28.7 % (36-47); Hemoglobin 7.90 g/dL (11.27-16.99); Mean Corpuscular HGB Conc 27.5 g/dL (30-55); Mean Corpuscular Hemoglobin 24.7 pg (27-33); Mean Corpuscular Volume 89.7 fl (85-98); Nucleated Red Blood Cells % 1.6 %; Platelet Count 244 10^3/cmm (157-399); Red Blood Count 3.20 10^6/uL (3.85-5.65); White Blood Count 1.89 10^3/uL (3.29-11.43)
[2025-07-14 05:58] LABS: Alanine Aminotransferase 11 U/L (0-33); Albumin Level 3.6 g/dL (3.5-5.2); Alkaline Phosphatase 99 U/L (35-105); Anion Gap 13.5 (5-19); Aspartate Amino Transferase 18 U/L (0-32); Blood Urea Nitrogen 21 mg/dL (8-23); Calcium 8.5 mg/dL (8.5-10.5); Carbon Dioxide 32 mmol/L (22-29); Chloride 99 mmol/L (98-107); Globulin 1.9 g/dL (1.3-4.6); Glucose 131 mg/dL (65-115); Magnesium 2.0 mg/dL (1.7-2.3); Osmolality Calculated 295 mOsm/kg (285-295); Potassium 4.5 mmol/L (3.5-5.1); Sodium 140 mmol/L (136-145); Total Protein 5.5 g/dL (6.6-8.7)
[2025-07-14 05:59] LABS: Cholesterol 133 mg/dL (0-200); HDL Cholesterol 81 mg/dL (60-100); Triglycerides 29 mg/dL (0-150)
[2025-07-14 06:06] LABS: Procalcitonin 0.13 ng/mL (0-0.5)
[2025-07-14] MEDS: sucralfate 1 gm/10 mL Oral Liq UDC PO ×4 (06:29→20:53)
--- NOTE | 2025-07-14 13:54 | P.PN_ITS ---
Subjective 2 Subjective: No acute vents overnight. Patient has remained hemodynamically stable and afebrile. Today morning seen on BiPAP. Awake and alert. Transition to nasal cannula. States feeling better. Vitals/I&O/Wt Last Vital Signs Temp 97.8 F 07/14/25 11:24 Pulse 73 07/14/25 11:24 Resp 18 07/14/25 11:24 BP 122/55 07/14/25 11:24 Pulse Ox 95 07/14/25 11:24 O2 Del Method Nasal Cannula 07/14/25 11:24 O2 Flow Rate 3 07/14/25 08:00 FiO2 50 07/14/25 08:11 07/13/25 07/14/25 07/14/25 22:59 06:59 14:59 Intake Total 1600 / 1600 Balance 1600 / 1600 Weight last 48 hrs Weight 66.8 kg Weight 59.421 kg Physical Exam 2 Narrative: General: No acute distress, AO x3, thin built HEENT: PERRLA, pupils bilaterally equal and reactive Chest: Bilateral bronchial breath sounds all over lung bases occasional rhonchi CVS: S1-S2 regular, no murmurs, no tachycardia, no gallops, no rubs Abdomen: Soft, nontender, no organomegaly, bowel sounds present Neuro: No focal deficits, no facial deformity, AO x3, power 5/5 in all limbs Data 07/14/25 05:02 07/14/25 05:02 Micro: Microbiology 07/13/25 11:35 Bacterial Antigens - Final Urine Kidney A&P Assessment and plan 1. Respiratory failure with hypoxia and hypercapnia: Evident on ABG. Associated with respiratory acidosis. Currently on BiPAP. Repeat ABG in 1 hour after being on BiPAP. If not improving will plan for AVAPS. Oxygen supplementation keeping saturation over 88%. Most likely in setting of COPD exacerbation. Pulmicort twice daily, DuoNeb every 6 hour. Solu-Medrol 125 mg one-time followed by 40 mg IV every 6 hours. Will wean aggressively. Check respiratory viral panel, MRSA swab, sputum culture. Empirically start on IV ceftriaxone and oral azithromycin for now. Check D-dimer. Depending on D-dimer plan for CTA chest versus CT chest. 2. Anemia, unspecified type: Baseline hemoglobin 7.8-9.5. Currently 8.4. Check stool for occult blood. IV Protonix 40 mg twice daily, Carafate ACHS. Check iron panel, vitamin B12 folate level, reticulocyte count. 3. History of deep venous thrombosis or pulmonary embolus: History of PE in 2019. Followed by GI bleed at time she had IVC filter placed. Anticoagulation was stopped. Subsequently after stopping anticoagulation she developed DVT. Has been on Eliquis since then. For now continue with Eliquis 2.5 mg twice daily. 4. Essential hypertension: Goal blood pressure less than 140/90 mmHg. Monitor blood pressures. Will restart antihypertensive accordingly. 5. COPD (chronic obstructive pulmonary disease): 6. AMS (altered mental status): In setting of hypercapnia and respiratory acidosis. CT head negative for acute stroke. If patient continues to have further occurrence of altered mental status we will consider doing an MRI brain. 7. Respiratory acidosis: 8. Lymphopenia: Plan: History of congestive heart failure, diastolic in nature. Appreciate last echocardiogram from December 2023 showing normal EF with mild pulmonary hypertension. Continue to monitor. CODE STATUS: Discussed and with the patient. Daughter and will be DPOA. Patient does not want any active resuscitative measures or aggressive measures. DNR/DNI. Protonix to be sufficient for PUD prophylaxis Eliquis was sufficient for DVT prophylaxis Clear liquid diet Plan for the day: Hypercapnic respiratory failure most likely in COPD exacerbation due to viral prodrome. Respiratory viral panel and negative but patient did have symptoms of rhinorrhea and today developing lymphopenia. No other concerns for infection for now. Has remained afebrile without leukocytosis. Follow-up cultures. Sputum culture not collected yet. Continue with IV ceftriaxone and azithromycin for now. Appreciate CT chest results. Concern for centrilobular emphysema. No concern for pneumonia or PE. Oral Lasix 20 mg one-time. Most likely patient will only need 20 mg of Lasix daily. Will discontinue home dose of Bumex. Echocardiogram as an outpatient done in December 2023 showed a normal EF with mild MR and TR. Oxygen supplementation keeping saturation over 88%. BiPAP as needed. Patient does have a CPAP at home. Can plan for overnight pulse oximetry study. Wean Solu-Medrol 40 mg every 12 hourly. Continue with nebulization treatment. Switch to regular diet. PDMP PDMP Reviewed: Not Reviewed Attestations 2 Medical Necessity Statement*: Further hospitalization for management of hypercapnic respiratory failure in setting of COPD exacerbation Diagnoses Respiratory failure with hypoxia and hypercapnia J96.91; J96.92 Anemia, unspecified type D64.9 Anemia type: unspecified type History of deep venous thrombosis or pulmonary embolus Essential hypertension I10 Hypertension type: essential hypertension COPD (chronic obstructive pulmonary disease) J44.9 AMS (altered mental status) R41.82 Respiratory acidosis E87.29 Lymphopenia D72.810
--- NOTE | 2025-07-14 14:21 | PC.NURSE ---
Patient ambulated 125 feet in the hallway with nursing staff. Patients O2 demand while ambulating went up to 4L to keep her O2 stat above 88%.
[2025-07-14] MEDS: cefTRIAXone 1,000 mg SDV 1000 MG IVP (16:50)
--- NOTE | 2025-07-14 20:25 | ECG_ITS ---
[facility] Test Date: 2025-07-14 Pat Name: Maddison Jenkins Department: Room: 105 Gender: Female Oracle Analyst: : 1945 Requested By: Herman Kyle Order Number: [id number] John MD: Oscar Thompson M.D. Measurements Intervals [place] Rate: 75 P: 75 ND: 174 QRS: 59 QRSD: 110 T: 50 QT: 418 QTc: 467 Interpretive Statements SINUS RHYTHM Compared to ECG 07/13/2025 11:46:52 TRACING ARTIFACT HAS DECREASED Electronically Signed On 07-14-2025 20:32:53 ICT EDUCATOR by Oscar Thompson M.D. [email or web address] [id number]
--- NOTE | 2025-07-14 20:43 | PC.NURSE ---
Patient is complaining of chest pain rating 5/10 after getting up to restroom, she said both arms are also hurting but pain is starting to go down at rest. EKG performed, Dr. Kyle notified and placed orders for EKG/Troponin series and nitro for chest pain. Patient states she does not feel she needs the nitro at this time but will let me know if she does.
--- NOTE | 2025-07-14 20:53 | PC.NURSE ---
Patient complaining of chest pain, pain level at 5. Patient also stated she had right arm pain several hours ago but did not tell anyone. Reported to nurse.
--- NOTE | 2025-07-14 21:33 | PC.RESP ---
overnight pulse ox started on patient at 2130. Patient on baseline 3lpm nc
[2025-07-14 22:09] LABS: Troponin(5th) Baseline 19 ng/L (0-10)
--- NOTE | 2025-07-14 22:33 | ECG_ITS ---
[facility]: 2025-07[facility]14 Pat Name: Maddison Jenkins Department: Room: 105 Gender: Female Barrel Washer: : 1945 Requested By: Herman Kyle Order Number: [id number] John MD: Tim Ortega M.D. Measurements Intervals [place] Rate: 72 P: 68 NC: 154 QRS: 62 QRSD: 105 T: 60 QT: 419 QTc: 459 Interpretive Statements SINUS RHYTHM Compared to ECG 07/14/2025 20:26:19 No significant changes Electronically Signed On 07-16-2025 19:47:58 MAIL RIDER by Tim Ortega M.D. [id number]
[2025-07-14 23:52] LABS: Troponin 5 2HR 18.87 ng/L (0-10)
[2025-07-15] VITALS (7 sets, daily range): BP systolic 130–152; BP diastolic 56–62; PULSE 61–73; RESP 13–20; TEMP 36–36.6; O2SAT 80–97; BMI 26.2
[2025-07-15] LABS: Troponin 5 2HR Delta -0.13 ABS# (0-10)
--- NOTE | 2025-07-15 02:37 | ECG_ITS ---
[facility] Test Date: 2025-07-15 Pat Name: Maddison Jenkins Department: Room: 105 Gender: Female Full Time Babysitter: : 1945 Requested By: Herman Kyle Order Number: [id number] John MD: Tim Ortega M.D. Measurements Intervals [place] Rate: 62 P: 84 NV: 139 QRS: 73 QRSD: 106 T: 62 QT: 422 QTc: 432 Interpretive Statements SINUS RHYTHM WITH SINUS ARRHYTHMIA SEPTAL MYOCARDIAL INFARCTION , OF INDETERMINATE AGE [40+ ms Q WAVE IN V1/V2] Compared to ECG 07/14/2025 22:33:30 Myocardial infarct finding now present Electronically Signed On 07-16-2025 19:45:51 WAREHOUSE DISTRIBUTION ASSOCIATE by Tim Ortega M.D. [id number] [id number]
[2025-07-15 04:15] LABS: Hematocrit 27.1 % (36-47); Hemoglobin 7.40 g/dL (11.27-16.99); Mean Corpuscular HGB Conc 27.3 g/dL (30-55); Mean Corpuscular Hemoglobin 23.9 pg (27-33); Mean Corpuscular Volume 87.4 fl (85-98); Nucleated Red Blood Cells % 0 %; Platelet Count 255 10^3/cmm (157-399); Red Blood Count 3.10 10^6/uL (3.85-5.65); White Blood Count 4.97 10^3/uL (3.29-11.43)
[2025-07-15 04:32] LABS: Alanine Aminotransferase 9 U/L (0-33); Albumin Level 3.5 g/dL (3.5-5.2); Alkaline Phosphatase 88 U/L (35-105); Anion Gap 13.5 (5-19); Aspartate Amino Transferase 14 U/L (0-32); Blood Urea Nitrogen 27 mg/dL (8-23); Calcium 8.8 mg/dL (8.5-10.5); Carbon Dioxide 34 mmol/L (22-29); Chloride 99 mmol/L (98-107); Globulin 1.4 g/dL (1.3-4.6); Glucose 131 mg/dL (65-115); Magnesium 2.2 mg/dL (1.7-2.3); Osmolality Calculated 301 mOsm/kg (285-295); Potassium 4.5 mmol/L (3.5-5.1); Sodium 142 mmol/L (136-145); Total Protein 4.9 g/dL (6.6-8.7)
[2025-07-15 04:33] LABS: Troponin 5 6HR 19.05 ng/L (0-10); Troponin 5 6HR Delta 0.05 ng/L (0-12)
[2025-07-15] MEDS: APIXABAN 2.5 MG TABLET PO (04:50)
[2025-07-15] MEDS: methylPREDNISolone sod succ 40 mg/mL INJ IVP (04:52)
[2025-07-15] MEDS: pantoprazole 40 mg SDV IVP (04:52)
[2025-07-15] MEDS: sucralfate 1 gm/10 mL Oral Liq UDC PO ×2 (06:10→10:57)
--- NOTE | 2025-07-15 08:53 | P.DS_ITS ---
Discharge Providers Date of Admission: 07/13/25 13:58 Date of Discharge: July 15, 2025 Attending Provider at Admission: Junior Rivera MD Attending Provider at Discharge: Junior Rivera MD Primary Care Provider: Zhang Gamboa MD Diagnoses at Discharge Discharge Diagnosis 1. Respiratory failure with hypoxia and hypercapnia: 2. Anemia, unspecified type: 3. History of deep venous thrombosis or pulmonary embolus: 4. Essential hypertension: 5. COPD (chronic obstructive pulmonary disease): 6. AMS (altered mental status): 7. Respiratory acidosis: 8. Lymphopenia: Reason for Visit Reason for Visit: stroke like symptoms Hospital Course Hospital Course Maddison Jenkins is a 80 year old female with past medical history of PE, on anticoagulation with Eliquis, IVC filter in place, COPD chronically on 2 L during the day 4 L during the night, DVT, breast cancer, hypertension, GI bleed presents to the ER today from her home because of confusion, slurred speech, unsteady on her feet for last 1 week. Associated with runny nose. Denies any nausea, vomiting, headache, chest pain, dizziness, palpitations, sick contacts. In the ER she was found to have hypercapnia with respiratory acidosis for which she was placed on BiPAP after which her mentation and her slurred speech improved. CT head was done which was negative for acute stroke. On examination patient is on BiPAP 30% FiO2 saturating 90%. Patient was brought to the hospital further evaluation and management of acute on chronic hypercapnic hypoxic respiratory in setting of COPD exacerbation. PE, pneumonia were ruled out with CTA. There was a concern for respiratory viral prodrome for which respiratory viral panel was checked though it was negative. There is still high concern for viral prodrome given patient developing lymphopenia which is resolving. She is back to her baseline oxygen supplementation requirement at rest for last 24 hours. Patient has not had any further episodes of altered mental status. Home O2 evaluation was done prior to discharge. She has been discharged hemodynamically stable condition on oral Lasix 20 mg daily, steroid taper, oral vancomycin and Zosyn for 3 more days. She is to follow-up with a primary care provider within next 1 week. Discharge Data Studies Completed and Pending Completed Studies During Hospitalization Category Date Time Status CT head thrombolytic 04353 Stat Cat Scan 07/13/25 11:29 Completed CTA chest [CT angio chest PE protcl 28882] Stat Cat Scan 07/13/25 15:04 Completed XR chest 1V portable 24294 Stat Exams 07/13/25 11:29 Completed Pending at discharge Category Date Time Status Blood Culture Stat Lab 07/13/25 11:51 Received Complete Blood Count w/Auto AM LABS Lab 07/16/25 04:00 Ordered Comprehensive Metabolic Panel AM LABS Lab 07/16/25 04:00 Ordered Magnesium AM LABS Lab 07/16/25 04:00 Ordered Occult Blood Stool [Immunochemical Fecal OCB] Routine Lab 07/13/25 15:59 Uncollected Phosphorus AM LABS Lab 07/16/25 04:00 Ordered Sputum Culture and Gram Stain Stat Lab 07/13/25 14:53 Uncollected Radiology Impressions Chest X-Ray 07/13/25 11:29 IMPRESSION: 1. Mild cardiac enlargement with increased pulmonary vascularity. 2. Chronic RIGHT basal changes. No acute infiltrates noted. Head CT 07/13/25 11:29 IMPRESSION: 1. No acute intracranial hemorrhage or edema. 2. Mild cerebral and cerebellar atrophy. 3. Advanced small vessel changes. Similar to the prior study of 11/04/2024. Chest CTA 07/13/25 15:04 IMPRESSION: 1. No pulmonary embolism. 2. Diffuse centrilobular emphysema. Enrollment in a low-dose CT screening program is recommended. Microbiology 07/13/25 11:35 Urine Kidney Bacterial Antigens - Final Laboratory Results WBC 4.97 10^3/uL (3.29-11.43) 07/15/25 03:23 RBC 3.10 10^6/uL (3.85-5.65) L 07/15/25 03:23 Hgb 7.40 g/dL (11.27-16.99) L 07/15/25 03:23 Hct 27.1 % (36-47) L 07/15/25 03:23 MCV 87.4 fl (85-98) 07/15/25 03:23 MCH 23.9 pg (27-33) L 07/15/25 03:23 MCHC 27.3 g/dL (30-55) L 07/15/25 03:23 RDW 20.6 % (12.1-15.1) H 07/15/25 03:23 Plt Count 255 10^3/cmm (157-399) 07/15/25 03:23 MPV 9.0 fL (7.4-10.4) 07/15/25 03:23 Neut % (Auto) 81.7 % 07/15/25 03:23 Lymph % (Auto) 5.6 % 07/15/25 03:23 [place] % (Auto) 12.1 % 07/15/25 03:23 Eos % (Auto) 0.2 % 07/15/25 03:23 Baso % (Auto) 0.0 % 07/15/25 03:23 Neut # (Auto) 4.06 10^3/uL (1.8-7.7) 07/15/25 03:23 Lymph # (Auto) 0.3 10^3/uL (0.8-4.8) L 07/15/25 03:23 [place] # (Auto) 0.6 10^3/uL (0.2-0.9) 07/15/25 03:23 Eos # (Auto) 0.0 10^3/uL (0.0-0.8) 07/15/25 03:23 Baso # (Auto) 0.0 10^3/uL (0.0-0.1) 07/15/25 03:23 Nucleated RBC % (auto) 0 % 07/15/25 03: Nucleated RBCs # 0.0 /100WBC 07/15/25 03:23 PT 14.30 SECONDS (12.1-14.9) 07/13/25 11: INR 1.04 (0.8-1.2) 07/13/25 11: APTT 30.9 SECONDS (23.9-36.7) 07/13/25 11:27 D-Dimer 1.12 ug/mLFEU (0-0.59) H 07/13/25 11:27 Specimen Type Arterial 07/13/25 16:02 Sample Site Brachial, right 07/13/25 16:02 ABG pH 7.29 (7.35-7.45) L 07/13/25 16:02 ABG pCO2 67.2 mmHg (35-45) H* 07/13/25 16:02 ABG pO2 77.0 mmHg (80.0-100.0) L 07/13/25 16:02 ABG PO2/FiO2 Ratio 240 07/13/25 16:02 ABG HCO3 32.3 mmol/L (22-26) H 07/13/25 16:02 ABG O2 Saturation 95.0 07/13/25 16:02 ABG Base Excess 4.6 mmol/L (-2.0-2.0) H 07/13/25 16:02 Anthony Test Pos 07/13/25 16:02 A-a O2 Gradient 9.0 mmHg (5-10) 07/13/25 16:02 Hematocrit 27.2 % (37-47) L 07/13/25 16:02 Hgb O2 Saturation 92.6 % (95-100) L 07/13/25 16:02 Carboxyhemoglobin 2.3 %THgb (0.4-20.1) 07/13/25 16:02 Methemoglobin 0.2 % (0.4-1.5) L 07/13/25 16:02 Total Hemoglobin 8.9 g/dL (12-16) L 07/13/25 16:02 Sodium 142.0 mmol/L (131-143) 07/13/25 16:02 Potassium 4.1 mmol/L (3.5-5.0) 07/13/25 16:02 Glucose 130.0 mg/dL (70-115) H 07/13/25 16:02 Ionized Calcium 1.2 mmol/L (1.1-1.4) 07/13/25 16:02 O2 Delivery Device Nc 07/13/25 16:02 O2 Liters/Min 3.0 % 07/13/25 16:02 FiO2 32.0 % 07/13/25 16:02 Drywall Hanger Framer ID Luluro 07/13/25 16:02 Sodium 142 mmol/L (136-145) 07/15/25 03:23 Potassium 4.5 mmol/L (3.5-5.1) 07/15/25 03:23 Chloride 99 mmol/L (98-107) 07/15/25 03:23 Carbon Dioxide 34 mmol/L (22-29) H 07/15/25 03:23 Anion Gap 13.5 (5-19) 07/15/25 03:23 BUN 27 mg/dL (8-23) H 07/15/25 03:23 Creatinine 0.6 mg/dL (0.5-0.9) 07/15/25 03:23 GFR Calculation Not Reportable 07/15/25 03:23 Glucose 131 mg/dL (65-115) H 07/15/25 03:23 POC Glucose 124 mg/dL (70-110) H 07/13/25 11:28 Estimat Average Glucose 77 07/13/25 11:27 Hemoglobin A1c 4.3 % (4.0-6.0) 07/13/25 11:27 Calculated Osmolality 301 mOsm/kg (285-295) H 07/15/25 03:23 Lactic Acid 1.7 mmol/L (0.5-2.2) 07/13/25 11:27 Calcium 8.8 mg/dL (8.5-10.5) 07/15/25 03:23 Phosphorus 3.3 mg/dL (2.5-4.5) 07/15/25 03:23 Magnesium 2.2 mg/dL (1.7-2.3) 07/15/25 03:23 Iron 264 ug/dL (37-145) H 07/13/25 11:27 TIBC 374 mcg/dl 07/13/25 11:27 % Saturation 70.5 % (20-50) H 07/13/25 11:27 Unsat Iron Binding 110 ug/dL (112-347) L 07/13/25 11:27 Total Bilirubin 0.2 mg/dL (0.15-1.2) 07/15/25 03:23 AST 14 U/L (0-32) 07/15/25 03:23 ALT 9 U/L (0-33) 07/15/25 03:23 Alkaline Phosphatase 88 U/L (35-105) 07/15/25 03:23 Troponin T Baseline 19 ng/L (0-10) H 07/14/25 21:09 Troponin T 120 Minute 18.87 ng/L (0-10) H 07/14/25 23:11 Delta Troponin T -0.13 ABS# (0-10) L 07/14/25 23:11 Troponin T Hi Sens 6Hr 19.05 ng/L (0-10) H 07/15/25 03:23 Troponin T Hi Sens 6Hr Delta 0.05 ng/L (0-12) 07/15/25 03:23 Total Protein 4.9 g/dL (6.6-8.7) L 07/15/25 03:23 Albumin 3.5 g/dL (3.5-5.2) 07/15/25 03:23 Globulin 1.4 g/dL (1.3-4.6) 07/15/25 03:23 Triglycerides 29 mg/dL (0-150) 07/14/25 05:02 Cholesterol 133 mg/dL (0-200) 07/14/25 05:02 LDL Cholesterol, Calc 46 mg/dL (50-129) L 07/14/25 05:02 HDL Cholesterol 81 mg/dL (60-100) 07/14/25 05:02 LDL/HDL Ratio 0.57 RATIO (0.00-3.22) 07/14/25 05:02 Cholesterol/HDL Ratio 1.64 mg/dL (0.0-4.40) 07/14/25 05:02 Vitamin B12 > 2000 pg/mL (232-1245) H 07/13/25 11:27 Folate 9.4 ng/mL (4.8-37.3) 07/14/25 05:02 Procalcitonin 0.13 ng/mL (0-0.5) 07/14/25 05:02 TSH 3.71 uIU/mL (0.27-4.20) 07/13/25 11:27 Urine Color Yellow (Yellow) 07/13/25 11:35 Urine Appearance Clear (CLEAR) 07/13/25 11:35 Urine pH 5.0 (5-7) 07/13/25 11:35 Ur Specific [place] 1.011 (1.005-1.030) 07/13/25 11:35 Urine Protein Negative (Negative) 07/13/25 11:35 Urine Glucose (UA) Negative (Normal) 07/13/25 11:35 Urine Ketones Negative (Negative) 07/13/25 11:35 Urine Blood 1+ (Negative) A 07/13/25 11:35 Urine Nitrate Negative (Negative) 07/13/25 11:35 Urine Bilirubin Negative (Negative) 07/13/25 11:35 Urine Urobilinogen 0.2 mg/dL (Negative) 07/13/25 11:35 Ur Leukocyte Esterase Trace (Negative) A 07/13/25 11:35 Urine RBC 3-5 /hpf (0-2) 07/13/25 11:35 Urine WBC 0-5 /hpf (0-5) 07/13/25 11:35 Ur Squamous Epith Cells 0-5 /hpf (0-5) 07/13/25 11:35 Amorphous Sediment Not Reportable 07/13/25 11:35 Urine Bacteria None seen /hpf (NONE) 07/13/25 11:35 Hyaline Casts 7.01 /lpf 07/13/25 11:35 Nasal MRSA (PCR) Not detected (Not Detecte) 07/13/25 17:43 Adenovirus (PCR) Not detected (NOT DETECT) 07/13/25 17:43 C. pneumoniae DNA (PCR) Not detected (NOT DETECT) 07/13/25 17:43 Coronavirus 229E (PCR) Not detected (NOT DETECT) 07/13/25 17:43 Human Metapneumovir PCR Not detected (NOT DETECT) 07/13/25 17:43 Influenza A (H1) PCR Not detected (NOT DETECT) 07/13/25 17:43 Influenza A (PCR) Negative (Negative) 07/13/25 11:50 Influ A (H1/09) PCR Not detected (NOT DETECT) 07/13/25 17:43 Influenza A (H3) PCR Not detected (NOT DETECT) 07/13/25 17:43 Influenza Type A (PCR) Not detected (NOT DETECT) 07/13/25 17:43 Influenza Type B (PCR) Not detected (NOT DETECT) 07/13/25 17:43 M. pneumoniae (PCR) Not detected (NOT DETECT) 07/13/25 17:43 Parainfluenza 1 (PCR) Not detected (NOT DETECT) 07/13/25 17:43 Parainfluenza 2 (PCR) Not detected (NOT DETECT) 07/13/25 17:43 Parainfluenza 3 (PCR) Not detected (NOT DETECT) 07/13/25 17:43 Parainfluenza 4 (PCR) Not detected (NOT DETECT) 07/13/25 17:43 RSV (PCR) Negative (Negative) 07/13/25 11:50 RSV Type A (PCR) Not detected (NOT DETECT) 07/13/25 17:43 RSV Type B (PCR) Not detected (NOT DETECT) 07/13/25 17:43 Entero/Rhino (PCR) Not detected (NOT DETECT) 07/13/25 17:43 SARS-CoV-2 (PCR) Not detected (NOT DETECT) 07/13/25 17:43 Vitals Last Vital Signs Temp 97.9 F 07/15/25 07:28 Pulse 65 07/15/25 08:00 Resp 20 H 07/15/25 08:00 BP 152/61 07/15/25 07:28 Pulse Ox 96 07/15/25 08:00 O2 Del Method Nasal Cannula 07/15/25 08:00 O2 Flow Rate 3 07/15/25 08:00 FiO2 50 07/14/25 08:11 Discharge Plan Discharge Patient Disposition: Home Condition: Stable Prescriptions: New furosemide 20 mg Tablet 20 mg PO DAILY@0800 Qty: 30 0RF prednisone 10 mg tablet See Taper PO DIRECTED Qty: 42 0RF Taper: predniSONE 60-10 60 mg Daily for 2 Days and 0 Hour 50 mg Daily for 2 Days and 0 Hour 40 mg Daily for 2 Days and 0 Hour 30 mg Daily for 2 Days and 0 Hour 20 mg Daily for 2 Days and 0 Hour 10 mg Daily for 2 Days and 0 Hour Rx Instructions: see taper instructions levofloxacin 750 mg tablet 750 mg PO Q24H 3 Days Qty: 3 0RF amoxicillin-pot clavulanate 875-125 mg tablet 1 tab PO BID Qty: 6 0RF Continued (DME) Power step arch support See Rx Instructions .Route .MEDSUPPLY Qty: 2 0RF Rx Instructions: As directed ferrous sulfate 324 mg (65 mg iron) tablet,delayed release (DR/EC) 324 mg PO DAILY mecobalamin (vitamin B12) 1,000 mcg tablet,chewable 1,000 mcg PO DAILY magnesium oxide 500 mg capsule 500 mg PO DAILY fluticasone propionate 50 mcg/actuation spray,suspension 1 spray intranasal BID Rx Instructions: administer into each nostril (DME) [place] Brace See Rx Instructions .Route .MEDSUPPLY Qty: 1 0RF Rx Instructions: As directed (DME) Supinator to right See Rx Instructions .Route .MEDSUPPLY Qty: 1 0RF Rx Instructions: As directed tizanidine 4 mg tablet 4 mg PO TID PRN (Reason: Spasms) hydrocodone-acetaminophen 5-325 mg tablet 1 - 2 tab PO Q4H PRN (Reason: Pain) citalopram 20 mg tablet 20 mg PO DAILY albuterol sulfate 90 mcg/actuation HFA aerosol inhaler 2 puff inhalation QID PRN (Reason: Shortness Of Breath) mometasone 0.1 % solution See Rx Instructions .ROUTE .COMPLEX Rx Instructions: Apply topically to itchy/flaky areas of ear 2 to 3 times per week. cholecalciferol (vitamin D3) 25 mcg (1,000 unit) capsule 25 mcg PO DAILY diphenhydramine HCl [Benadryl Allergy] 25 mg tablet 25 mg PO TID PRN (Reason: Allergic Symptoms) pantoprazole 40 mg tablet,delayed release (DR/EC) 40 tab PO DAILY donepezil 10 mg tablet 1 tab PO DAILY rosuvastatin 10 mg tablet 1 tab PO QPM nitroglycerin 0.4 mg tablet, sublingual 0.4 mg sublingual Q5M PRN (Reason: Chest Pain) Qty: 25 3RF Rx Instructions: do not exceed 3 doses per episode potassium chloride [Klor-Con M20] 20 mEq tablet,ER particles/crystals 20 meq PO BID Qty: 180 3RF ascorbic acid (vitamin C) 500 mg capsule 500 mg PO DAILY Qty: 90 0RF (DME) hinged knee brace See Rx Instructions .Route .MEDSUPPLY Qty: 1 0RF Rx Instructions: As directed celecoxib [Celebrex] 100 mg capsule 100 mg PO DAILY Qty: 30 0RF Eliquis 2.5 mg tablet 2.5 mg PO BID 30 Days Qty: 60 0RF gabapentin 600 mg tablet 600 mg PO BID tramadol 50 mg tablet 50 mg PO Q8H PRN (Reason: pain) Qty: 10 0RF triamcinolone acetonide 0.1 % cream 1 applic TOPICAL BID Discontinued bumetanide 1 mg tablet 1 mg PO DAILY Discharge Order = DC NOW: Discharge Order (Routine); Ordered 07/15/25 Ordered By: Junior Rivera Other Ambulatory Orders: DME: Oxygen (Order) Location: None Selected Ordered By: Junior Rivera Referrals: Zhang Gamboa MD [Primary Care Provider, Family Practice] - 07/21/25 3:30 pm Discharge Diet: Cardiac Discharge Activity: Resume usual activity and Increase activity as tolerated Patient Instructions: Anemia, COPD, Furosemide (By mouth), Prednisone (By mouth), Amoxicillin (By mouth), Levofloxacin (By mouth), Altered Mental Status (GEN), Chronic Respiratory Failure (GEN), Opioid Safety, Patient Portal & Marisol Instructions Discharge Attestations Time Spent in Discharge Care*: greater than 30 min Specific Discharge Activities: educating patient, educating and/or supporting family/caregiver, discussing with pcp/other providers, discussing with case coordinator/social workers/dc planners, documenting/other paperwork and evaluating patient/reviewing data Status at Discharge: Cognitive status at discharge: mildly impaired cognition , Behavioral status at discharge: cooperative , Functional status at discharge: uses cane/walker , Overall status at discharge: patient is progressing back to baseline Quality Metrics Clinical Quality Measures [ No reported AMI, CVA or VTE this stay] Coding Level of Care Code 65681 Total time (in minutes) for Discharge: 65 Diagnoses Respiratory failure with hypoxia and hypercapnia J96.91; J96.92 Anemia, unspecified type D64.9 Anemia type: unspecified type History of deep venous thrombosis or pulmonary embolus Essential hypertension I10 Hypertension type: essential hypertension COPD (chronic obstructive pulmonary disease) J44.9 AMS (altered mental status) R41.82 Respiratory acidosis E87.29 Lymphopenia D72.810
--- NOTE | 2025-07-15 10:26 | PC.CHAP ---
Pastoral Care Encounter/Spiritual Assessment Type of Contact [] Declined candles pourer visit [] Patient/Family/Request visit [] Outpatient visit [] Follow-up visit [] Physician referral [] Code/Alert [] Routine visit [] Staff referral [] Actively dying [x] Patient sleeping [] Family support [] [] Out of room [] Palliative care [] [] Receiving care in room [] Pre-surgical visit [] Trauma [] Long length of stay [] ICU visit [] Other: Relational/Emotional Strength [] Patient feels connected with others/family/visitors/staff [] Distress [] Loneliness/isolation [] Abandonment Spirituality of Patient [] Person of Deepali [] Attends Congregation of their Deepali [] Believes in Prayer [] Reads Bible or Faith materials [] There are Spiritual issues to be addressed [employer]ist Interventions [] Prayer [] Active listening [] Non-anxious presence [] Spiritual/emotional support [] Crisis/trauma care [] Spiritual counseling [] Bereavement support [] Provided bereavement packet [] Provided Bible/devotional materials [] Provided toy/stuffed animal, coloring book to patient or family member [] Provided Communion [] Anointing/[place] [] Salvation [] Completed spiritual assessment [] Other: Impact on Illness or Injury [] Angry [] Fearful [] Anxious [] Often cries [] Exhaustion [] Unable to work [] Unable to attend mormon [] Unable to walk/stand [] Unable to read [] Unable to drive [] Unable to eat/drink [] Unable to sleep [] Unable to be with family [] Patient intubated [] Other: Summary Time spent with patient
== END 2025-07-15 11:45 | disposition home or self-care (01) | DRG 190 ==
LOC: ER 12:27 → CSU 13:59
PROVIDERS: Family Medicine; Admitting Provider Student in an Organized Health Care Education/Training Program; Emergency Provider Emergency Medicine; PCP Family Medicine; Visit Provider Student in an Organized Health Care Education/Training Program
DX: J44.1 Chronic obstructive pulmonary disease with (acute) exacerbation (principal); J96.21 Acute and chronic respiratory failure with hypoxia; J96.22 Acute and chronic respiratory failure with hypercapnia; I13.0 Hypertensive heart and chronic kidney disease with heart failure and stage 1 through stage 4 chronic kidney disease, or unspecified chronic kidney disease; I50.32 Chronic diastolic (congestive) heart failure; D64.9 Anemia, unspecified; N18.9 Chronic kidney disease, unspecified; D72.810 Lymphocytopenia; J43.2 Centrilobular emphysema; Z66 Do not resuscitate; I27.20 Pulmonary hypertension, unspecified; Z96.652 Presence of left artificial knee joint; M06.9 Rheumatoid arthritis, unspecified; F32.A Depression, unspecified; G47.33 Obstructive sleep apnea (adult) (pediatric); G30.9 Alzheimer's disease, unspecified; F02.80 Dementia in other diseases classified elsewhere, unspecified severity, without behavioral disturbance, psychotic disturbance, mood disturbance, and anxiety; K21.9 Gastro-esophageal reflux disease without esophagitis; E78.5 Hyperlipidemia, unspecified; Z79.01 Long term (current) use of anticoagulants; Z95.828 Presence of other vascular implants and grafts; Z99.81 Dependence on supplemental oxygen; Z85.3 Personal history of malignant neoplasm of breast; Z86.718 Personal history of other venous thrombosis and embolism; Z86.711 Personal history of pulmonary embolism; Z87.891 Personal history of nicotine dependence; Z85.828 Personal history of other malignant neoplasm of skin
CPT/HCPCS: 36415; 36416; 36600; 70450; 71045; 71275; 80051; 80053; 80061; 81001; 82330; 82607; 82746; 82805; 82962; 83036; 83540; 83550; 83605; 83735; 84100; 84145; 84443; 84484; 85025; 85378; 85610; 85730; 86403; 87040; 87486; 87581; 87633; 87637; 93005; 94640; 94660; 94664; 94760; 94762; 96365; 96375; 99291; J0696; J2470; J2919; J3490; J7030; J7040; J7626; J9999; Q0144

== ENCOUNTER → 2025-08-04 08:30 | Outpatient (BNVA) | payer MEDICARE, SELFPAY | PROVIDERS: PCP Family Medicine; Visit Provider Specialist | DX: M19.011 Primary osteoarthritis, right shoulder (principal) | CPT/HCPCS: 73030 ==

== ENCOUNTER 2025-08-25 08:57 | Oncology outpatient (recurring) (ONCR) | payer MEDICARE, SELFPAY ==
[2025-08-11 12:03] LABS: Hematocrit 25.8 % (36-47); Hemoglobin 7.10 g/dL (11.27-16.99); Mean Corpuscular HGB Conc 27.5 g/dL (30-55); Mean Corpuscular Hemoglobin 22.3 pg (27-33); Mean Corpuscular Volume 81.1 fl (85-98); Nucleated Red Blood Cells % 0 %; Platelet Count 307 10^3/cmm (157-399); Red Blood Count 3.18 10^6/uL (3.85-5.65); White Blood Count 4.60 10^3/uL (3.29-11.43)
[2025-08-11 12:41] LABS: Alanine Aminotransferase 8 U/L (0-33); Albumin Level 4.0 g/dL (3.5-5.2); Alkaline Phosphatase 100 U/L (35-105); Anion Gap 12.8 (5-19); Aspartate Amino Transferase 18 U/L (0-32); Blood Urea Nitrogen 24 mg/dL (8-23); Calcium 8.7 mg/dL (8.5-10.5); Carbon Dioxide 33 mmol/L (22-29); Chloride 102 mmol/L (98-107); Creatinine Clr Calc Pharmacy 48.4638; Ferritin 8 ng/mL (15-150); Globulin 1.9 g/dL (1.3-4.6); Glucose 111 mg/dL (65-115); Iron 15 ug/dL (37-145); Osmolality Calculated 303 mOsm/kg (285-295); Potassium 3.8 mmol/L (3.5-5.1); Sodium 144 mmol/L (136-145); Total Iron Binding Capacity 378 mcg/dl; Total Protein 5.9 g/dL (6.6-8.7); Unsaturated Iron Binding 363 ug/dL (112-347)
[2025-08-17] VITALS (11 sets, daily range): BP systolic 136–172; BP diastolic 50–71; PULSE 16–76; RESP 16–18; TEMP 36–37; O2SAT 98–100
[2025-08-17 08:08] LABS: Hematocrit 26.1 % (36-47); Hemoglobin 7.10 g/dL (11.27-16.99); Mean Corpuscular HGB Conc 27.2 g/dL (30-55); Mean Corpuscular Hemoglobin 21.1 pg (27-33); Mean Corpuscular Volume 77.7 fl (85-98); Nucleated Red Blood Cells % 0 %; Platelet Count 325 10^3/cmm (157-399); Red Blood Count 3.36 10^6/uL (3.85-5.65); White Blood Count 3.51 10^3/uL (3.29-11.43)
[2025-08-17] MEDS: FUROsemide 10 mg/mL SDV 2mL 20 MG IVP (13:00)
[2025-08-24 08:06] LABS: Hematocrit 34.0 % (36-47); Hemoglobin 9.60 g/dL (11.27-16.99); Mean Corpuscular HGB Conc 28.2 g/dL (30-55); Mean Corpuscular Hemoglobin 22.7 pg (27-33); Mean Corpuscular Volume 80.4 fl (85-98); Nucleated Red Blood Cells % 0 %; Platelet Count 275 10^3/cmm (157-399); Red Blood Count 4.23 10^6/uL (3.85-5.65); White Blood Count 8.51 10^3/uL (3.29-11.43)
[2025-08-24 08:21] LABS: Alanine Aminotransferase 10 U/L (0-33); Albumin Level 3.9 g/dL (3.5-5.2); Alkaline Phosphatase 88 U/L (35-105); Anion Gap 8.4 (5-19); Aspartate Amino Transferase 21 U/L (0-32); Blood Urea Nitrogen 25 mg/dL (8-23); Calcium 9.1 mg/dL (8.5-10.5); Carbon Dioxide 37 mmol/L (22-29); Chloride 101 mmol/L (98-107); Creatinine Clr Calc Pharmacy 48.4638; Globulin 1.8 g/dL (1.3-4.6); Glucose 93 mg/dL (65-115); Osmolality Calculated 298 mOsm/kg (285-295); Potassium 4.4 mmol/L (3.5-5.1); Sodium 142 mmol/L (136-145); Total Protein 5.7 g/dL (6.6-8.7)
== END 2025-09-01 23:59 | disposition home or self-care (01) ==
PROVIDERS: Internal Medicine Medical Oncology; Nurse Practitioner; Nurse Practitioner Family; PCP Family Medicine; Visit Provider Internal Medicine
DX: D50.9 Iron deficiency anemia, unspecified (principal); Z85.3 Personal history of malignant neoplasm of breast; J02.9 Acute pharyngitis, unspecified; Z79.899 Other long term (current) drug therapy; Z92.3 Personal history of irradiation
CPT/HCPCS: 36415; 36430; 80053; 82728; 83540; 83550; 85025; 86850; 86900; 86920; 96374; 99214; J1938; J7050; J9999; P9016